=== PATIENT | female | born 1960 | race Caucasian/White ===

== ENCOUNTER 2023-05-21 14:08 | Outpatient (OUT) | payer OTHER, SELFPAY | END 2023-05-21 14:09 | disposition home or self-care (01) | LOC: PST 14:08 | PROVIDERS: PCP Family Medicine; Visit Provider Surgery | DX: Z01.818 Encounter for other preprocedural examination (principal); K62.5 Hemorrhage of anus and rectum; R19.5 Other fecal abnormalities; Z86.010 Personal history of colon polyps ==

== ENCOUNTER 2023-05-30 07:24 | Day surgery (SDC) | payer OTHER, SELFPAY ==
--- NOTE | 2023-05-30 | OP_ITS ---
OPERATION DATE: ??05/30/2023 PREOPERATIVE DIAGNOSIS:? Rectal bleeding. POSTOPERATIVE DIAGNOSIS:? Descending polyps x2, sigmoid colon polyp x1 and mass at the rectosigmoid junction. PROCEDURE:? Colonoscopy to cecum with cold snare polypectomy x3 for descending colon polyps and sigmoid polyp, and multiple biopsies of rectosigmoid mass. SURGEON:? Anselmo Smart M.D. ANESTHESIA:? Monitored anesthesia care. ESTIMATED BLOOD LOSS:? Less than 1 mL. INDICATIONS AND CONSENT:? Patient is a 63-year-old female with a three month history of intermittent rectal bleeding with bowel movements.? No other change in bowel movements.? She does have a family history of colon cancer, as well as a personal history of colon polyps. ?Last colonoscopy was three years ago and she had a tubular adenoma removed, as well as a hyperplastic sigmoid polyp.? Indications, risks, benefits, alternatives of proceeding with colonoscopy were explained extensively to the patient, including the risks of bleeding, colon perforation or anesthetic complications.? All of her questions were answered.? Informed consent was obtained. PROCEDURE:? Patient brought to the operating room, placed in the left lateral decubitus position.? Monitored anesthesia care was provided.? Rectal exam was performed which showed no masses.? There was some bloody fluid within the rectum.? The scope was then inserted into the anal canal.? Under direct visualization, it was advanced.? There was noted to be a small amount of bloody fluid within the lumen.? Th scope was advanced to the cecum where cecal markings were clearly identified.? There was noted to be a good prep.? The ileocecal valve was some patulous, but the terminal ileum did have normal mucosa.? Upon withdrawal of the scope, mucosal surfaces were carefully examined.? There were inflammatory changes.? Within the descending colon, there were noted to be two 3 mm sessile polyps that were removed with cold snare with good hemostasis.? These were adjacent to each other.? There was moderate sigmoid diverticulosis without inflammatory changes or scarring.? In the sigmoid, there was noted to be another 3 mm sessile polyp that was also removed with cold snare.? At the rectosigmoid junction, there was a polypoid, ulcerated mass taking up approximately 60% of the luminal circumference that was oozing.? Multiple biopsies were obtained with good hemostasis.? The scope was retroflexed in the anal canal.? There was no significant hemorrhoidal disease.? Scope was then withdrawn.? Patient tolerated procedure well, was sent to recovery room in good condition. follow up colonoscopy 1 year after colon resection. CC:? Justin Mcgowan M.D. JESSICA
[2023-05-30 07:40] VITALS: BP 139/84; PULSE 84; RESP 16; TEMP 35.7; O2SAT 96; BMI 37.5
[2023-05-30] MEDS: LACTATED RINGER'S SOLUTION 1,000 ML 50 ML IV (07:46)
[2023-05-30 09:21] VITALS: BP 116/66; PULSE 72; RESP 16; O2SAT 97
[2023-05-30 09:34] VITALS: BP 115/75; PULSE 77; RESP 16; O2SAT 97
== END 2023-05-30 09:52 | disposition home or self-care (01) ==
PROVIDERS: PCP Family Medicine; Visit Provider Surgery
PROC: (CPT 45380; principal; 2023-05-30 08:50)
DX: K62.5 Hemorrhage of anus and rectum (principal); R19.5 Other fecal abnormalities; Z86.010 Personal history of colon polyps; D12.4 Benign neoplasm of descending colon; K63.5 Polyp of colon; C20 Malignant neoplasm of rectum; E78.5 Hyperlipidemia, unspecified; Z90.710 Acquired absence of both cervix and uterus; E03.9 Hypothyroidism, unspecified; E66.01 Morbid (severe) obesity due to excess calories; Z68.38 Body mass index [BMI] 38.0-38.9, adult; Z80.0 Family history of malignant neoplasm of digestive organs; K57.30 Diverticulosis of large intestine without perforation or abscess without bleeding
CPT/HCPCS: 45380; 45385; 88305; J2704

== ENCOUNTER 2023-08-20 08:19 | Outpatient (OUT) | payer OTHER, SELFPAY ==
[2023-08-20 09:19] LABS: Estimated Average Glucose 114 mg/dL; Glycohemoglobin A1C 5.6 % (4.5-6.2)
[2023-08-20 09:34] LABS: Chol HDL Ratio 4.7; Cholesterol 223 mg/dL (<=200); Free T3 2.35 pg/mL (2.18-3.98); HDL Cholesterol 47 mg/dL (40-60); Thyroid Stimulating Hormone 2.603 uIU/mL (0.358-3.740); Triglycerides 193 mg/dL (<=150); VLDL CHOLESTEROL 38.6 mg/dL
[2023-08-20 12:04] LABS: Free T4 0.93 ng/dL (0.76-1.46)
== END 2023-08-20 08:20 | disposition home or self-care (01) ==
LOC: LAB 08:23
PROVIDERS: PCP Family Medicine; Visit Provider Family Medicine
DX: Z00.00 Encounter for general adult medical examination without abnormal findings (principal); R53.83 Other fatigue
CPT/HCPCS: 36415; 80061; 82306; 83036; 84439; 84443; 84481

== ENCOUNTER 2023-12-21 07:25 | Outpatient (OUT) | payer OTHER, SELFPAY ==
--- NOTE | 2023-12-21 07:28 | MM_ITS ---
Patient Name: PHAM CARRANZA MR#: [id number] : 1960 Exam Date: 12/21/2023 Ordering Doctor: DR Justin Mcgowan . RADIOLOGY REPORT PROCEDURE: MM TOMOSYNTHESIS SCREENING BI COMPARISON: [facility]M SCREEN 3D [facility] CAD, 11/29/2022. [facility]M SCREEN 3D [facility] CAD, 11/23/2021. [facility]M SCREEN [facility] W CAD, 11/17/2020. [facility] M[facility]M [facility] SCRN W CAD DIG, 07/13/1998. INDICATIONS: Screening Calculator Name NCI Breast Cancer Risk Assessment Tool 5 Year Breast Cancer Risk 1.80% Lifetime Breast Cancer Risk 7.20% Personal Breast Cancer No Personal Ovarian Cancer No Treatments Chemo and Surgery Family Cancers Aunt-paternal with breast cancer at age ~75. LOCATION: [facility] BREAST COMPOSITION: Scattered areas fibroglandular density. FINDINGS: DIAGNOSTIC CATEGORY 1--NEGATIVE. RIGHT BREAST: No significant suspicious finding. No significant change has occurred. LEFT BREAST: No significant suspicious finding. No significant change has occurred. RECOMMENDATIONS: ROUTINE MAMMOGRAM AND CLINICAL EVALUATION IN 12 MONTHS. PLEASE NOTE: A NORMAL MAMMOGRAM DOES NOT EXCLUDE THE POSSIBILITY OF BREAST CANCER. A CLINICALLY SUSPICIOUS PALPABLE LUMP SHOULD BE BIOPSIED. Dictated by: Vinod Tenorio M.D. on 12/21/2023 at 14:12 Approved by: Vinod Tenorio M.D. on 12/21/2023 at 14:17
--- OUTSIDE RECORDS SUMMARY | 2023-12-21 07:28 | XMS_ITS | CCD ---
Author Organization [facility] Care Team Providers Care 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 Therapy Asst Name Role Phone EBLEN BLOOM Attending Unavailable HOY ., DR GARCIA Admitting Unavailable HOY ., DR GARCIA Attending Unavailable HOY ., DR GARCIA Primary Care Unavailable HOY ., DR GARCIA Consulting Unavailable ZIEBER, DR DIANA Sloan Consulting Unavailable BELEN BLOOM Admitting Unavailable BELEN BLOOM Attending Unavailable HOY ., DR GARCIA Primary Care Unavailable BELEN BLOOM Consulting Unavailable HOY ., DR GARCIA Admitting Unavailable HOY ., DR GARCIA Attending Unavailable HOY ., DR GARCIA Primary Care Unavailable HOY ., DR GARCIA Consulting Unavailable Jose Buckner Primary Care Physician [phone] Unavailable Primary Care Provider UnavailJose Daniels MD Primary Care Provider [phone] Andrew Wing MD Unavailable Manjit BOLAÑOS, Darvin Unavailable Lidia Teran RN Unavailable JOSE BUCKNER Primary Care Unavailable PROVIDER, UNKNOWN Attending Unavailable PROVIDER, UNKNOWN Admitting Unavailable JOSE BUCKNER Primary Care Unavailable DAO DIXON Referring Unavailable JOSE BUCKNER Primary Care Unavailable DAO DIXON Referring Unavailable PHILIP FRANCOIS Referring Unavailable KELLY MCCLAIN Attending Unavailable DAO DIXON Attending Unavailable JOSE BUCKNER Primary Care Unavailable DAO DIXON Admitting Unavailable DAO DIXON Attending Unavailable JOSE BUCKNER Primary Care Unavailable Eliza Morales RD Unavailable Jose Buckner MD Primary Care Provider [phone] Salbador LEE Attending Unavailable Salbador LEE Attending Unavailable JOSE BUCKNER Primary Care Unavailable ABHYANKAR, ANDREW Referring Unavailable HOY, JOSE M Primary Care Unavailable ABHYANKAR, ANDREW Referring Unavailable ABHYANKAR, ANDREW Attending Unavailable HOY, JOSE M Primary Care Unavailable ELIZA MORALES Attending Unavailabl e ABHYANKAR, ANDREW Referring Unavailable HOY, JOSE M Primary Care Unavailable ABHYANKAR, ANDREW Referring Unavailable HOY, JOSE M Primary Care Unavailable ABHYANKAR, ANDREW Referring Unavailable HOY, JOSE M Primary Care Unavailable ABHYANKAR, ANDREW Referring Unavailable HOY, JOSE M Primary Care Unavailable ABHYANKAR, ANDREW Referring Unavailable HOY, JOSE M Primary Care Unavailable HOY, JOSE M Primary Care Unavailable ABHYANKAR, ANDREW Referring Unavailable HOY, JOSE M Primary Care Unavailable ABHYANKAR, ANDREW Referring Unavailable HOY, JOSE M Primary Care Unavailable ABHYANKAR, ANDREW Referring Unavailable HOY, JOSE M Primary Care Unavailable DARVIN CARSON Attending Unavailable ABHYANKAR, ANDREW Referring Unavailable HOY, JOSE M Primary Care Unavailable ABHYANKAR, ANDREW Referring Unavailable ABHYANKAR, ANDREW Attending Unavailable HOY, JOSE M Primary Care Unavailable ELIZA MORALES Attending Unavailabl e ABHYANKAR, ANDREW Referring Unavailable HOY, JOSE M Primary Care Unavailable KESHINRO, DAVIDARATU Referring Unavailable HOY, JOSE M Primary Care Unavailable KESHINRO, AJARATU Referring Unavailable HOY, JOSE M Primary Care Unavailable ABHYANKAR, ANDREW Referring Unavailable HOY, JOSE M Primary Care Unavailable ABHYANKAR, ANDREW Referring Unavailable HOY, JOSE M Primary Care Unavailable ABHYANKAR, ANDREW Attending Unavailable HOY, JOSE M Primary Care Unavailable KESHINRO, AJARATU Referring Unavailable HOY, JOSE M Primary Care Unavailable ABHYANKAR, ANDREW Referring Unavailable HOY, JOSE M Primary Care Unavailable ABHYANKAR, ANDREW Referring Unavailable HOY, JOSE M Primary Care Unavailable ABHYANKAR, ANDREW Attending Unavailable HOY, JOSE M Primary Care Unavailable FUENTESSHWM RHODESTU Attending Unavailable HOY, JOSE M Primary Care Unavailable ABHYANKAR, ANDREW Referring Unavailable ABHYANKAR, ANDREW Attending Unavailable HOY, JOSE M Primary Care Unavailable ELIZA MORALES Attending Unavailabl e ABHYANKAR, ANDREW Referring Unavailable HOY, JOSE M Primary Care Unavailable ABHYANKAR, ANDREW Referring Unavailable HOY, JOSE M Primary Care Unavailable DAO DIXON Referring Unavailable HOY, JOSE M Primary Care Unavailable HOY, JOSE M Primary Care Unavailable HOY, JOSE M Primary Care Unavailable ABHYANKAR, ANDREW Referring Unavailable JUDIT HONG Attending Unavailable HOY, JOSE M Primary Care Unavailable ABHYANKAR, ANDREW Referring Unavailable ABHYANKAR, ANDREW Attending Unavailable HOY, JOSE M Primary Care Unavailable ABHYANKAR, ANDREW Referring Unavailable HOY, JOSE M Primary Care Unavailable ABHYANKAR, ANDREW Attending Unavailable ABHYANKAR, ANDREW Referring Unavailable HOY, JOSE M Primary Care Unavailable HOY, JOSE M Primary Care Unavailable ABHYANKAR, ANDREW Referring Unavailable HOY, JOSE M Primary Care Unavailable ABHYANKAR, ANDREW Referring Unavailable HOY, JOSE M Primary Care Unavailable ABHYANKAR, ANDREW Referring Unavailable HOY, JOSE M Primary Care Unavailable ABHYANKAR, ANDREW Referring Unavailable HOY, JOSE M Primary Care Unavailable ABHYANKAR, ANDREW Attending Unavailable ABHYANKAR, ANDREW Referring Unavailable HOY, JOSE M Primary Care Unavailable ELIZA MORALES Attending Unavailabl e ABHYANKAR, ANDREW Referring Unavailable HOY, JOSE M Primary Care Unavailable ABHYANKAR, ANDREW Referring Unavailable HOY, JOSE M Primary Care Unavailable ABHYANKAR, ADNREW Referring Unavailable HOY, JOSE M Primary Care Unavailable ABHYANKAR, ANDREW Referring Unavailable HOY, JOSE M Primary Care Unavailable DARVIN CARSON Attending Unavailable ABHYANKAR, ANDREW Referring Unavailable HOY, JOSE M Primary Care Unavailable EULALIA CASTANEDA Referring Unavailable HOY, JOSE M Primary Care Unavailable SALBADOR LEE Referring Unavailable PHILIP FRANCOIS Attending Unavailable Allergies Allergy Classification Reported Allergen(s) Allergy Type Date of Onset Reaction(s) Facility (3 sources) Pravastatin; Translations: [PRAVASTATIN] Drug Allergy 2 Muscle pain (finding) [facility] Repository (20 sources) rosuvastatin; Translations: [ROSUVASTATIN] Drug Allergy 3 Myalgia [facility] (20 sources) HMG-CoA reductase inhibitor; Translations: [[id number]-BU A REDUCTASE INHIBITORS] Drug Allergy 2 Other: See Comments, Myalgia, Unknown [facility] (1 source) No Known Medication Allergies; Translations: [No Known Medication Allergies] Propensity to adverse reactions (disorder) [facility] Repository Medications Current Medications Medication Drug Class(es) Dates Sig (Normalized) Sig (Original) amoxicillin 875 mg / clavulanate 125 mg oral tablet (4 sources) Penicillin-class Antibacterial Start: 10-18-2023 End: 10-25-2023 take 1 tablet by mouth twice daily amoxicillin-clav ulanate potassium (AUGMENTIN) 875-125 mg per tablet Take 1 tablet by mouth two times a day for 7 days. 14 tablet 0 10/18/2023 10/25/2023 Active Comment on above: Take 1 tablet by titi th two times a day for 7 days. Fish Oils (1 source) Start: 02-18-2020 take 4 capsules by mouth once daily Fish Oil 1000 mg oral capsule 4,000 mg = 4 cap(s), Oral, Daily, Refills(s) 0 Start Date: 02/18/20 Status: Ordered Completed/Discontinued Medications Medication Drug Class(es) Dates Sig (Normalized) Sig (Original) Acetaminophen / diphenhydrAMINE (20 sources) Histamine-1 Receptor Antagonist acetaminophen/diphe nhydramine (TYLENOL PM ORAL) Take 1 Dose by mouth as needed. 0 Active acetaminophen/di phenhydramine (TYLENOL PM ORAL) Take by mouth. 0 Active Comment on above: Take by mouth. Take 1 Dose by mouth as needed. ascorbic acid 500 mg oral tablet (6 sources) Vitamin C End: 08-21-2023 take 1 tablet by mouth once daily ascorbic acid, vitamin C, (VITAMIN C) 500 mg tablet Take 500 mg by mouth once daily. 0 08/21/2023 Discontinued Comment on above: Take 500 mg by mouth once daily. Ascorbic Xcxb-Bgqvvnlml-Obb (EMERGEN-C) 1,000 mg pwep (20 sources) take 1 dose by mouth once daily Ascorbic Stdc-Sfpfpzsxw-Zxy (EMERGEN-C) 1,000 mg pwep Take 1 Packet by mouth once daily. 0 Active Comment on above: Take 1 Packet by titi th once daily. collagen, hydrolysate, bovine, (COLLAGEN, HYDR, BOVINE,, BULK,) 100 % powd (20 sources) take 1 dose by mouth once daily collagen, hydrolysate, bovine, (COLLAGEN, HYDR, BOVINE,, BULK,) 100 % powd Take 1 Dose by mouth once daily. 0 Active Comment on above: Take 1 Dose by mouth once daily. enteric contrast (will be provided with radiology test) (20 sources) Start: 10-24-2023 enteric contrast (will be provided with radiology test) Indications: Malignant neoplasm of descending colon (HCC) For CT CHESTABD/PEL W IVCON Routine order Administer, As Directed One Time Only, via Oral, Rectal, both Oral and Rectal, Enteric Tube, Stoma or Indwelling Catheter, Enteric Contrast as designated per enteric contrast guidelines 1 Each 0 10/24/2023 Active Start: 06-25-2023 End: 06-26-2023 enteric contrast (will be pr ovided with radiology test) Indications: Malignant neoplasm of sigmoid colon (HCC) For CT PELVIS W IVCON order Administer, As Directed One Time Only, via Oral, Rectal, both Oral and Rectal, Enteric Tube, Stoma or Indwelling Catheter, Enteric Contrast as designated per enteric contrast guidelines 1 Each 0 06/25/2023 06/26/2023 Active Start: 06-05-[address] (will be provided with radiology test) MRI RECTUM WO/W. Administer, As Directed One Time Only, via Oral, Rectal, both Oral and Rectal, Enteric Tube, Stoma or Indwelling Catheter, Enteric Contrast as designated per enteric contrast guidelines 1 Each 0 06/05/2023 Active Comment on above: MRI RECTUM WO/W. Adm inister, As Directed One Time Only, via Oral, Rectal, both Oral and Rectal, Enteric Tube, Stoma or Indwelling Catheter, Enteric Contrast as designated per enteric contrast guidelines For CT PELVIS W IVCO N order Administer, As Directed One Time Only, via Oral, Rectal, both Oral and Rectal, Enteric Tube, Stoma or Indwelling Catheter, Enteric Contrast as designated per enteric contrast guidelines For CT CHESTABD/PEL W IVCON Routine order Administer, As Directed One Time Only, via Oral, Rectal, both Oral and Rectal, Enteric Tube, Stoma or Indwelling Catheter, Enteric Contrast as designated per enteric contrast guidelines ferrous sulfate (6 sources) End: 08-21-2023 take 20 mg by mouth once daily FERROUS SULFATE ORAL Take 20 mg by mouth once daily. 0 08/21/2023 Discontinued take 20 mg by mouth once daily F ERROUS SULFATE ORAL Take 20 mg by mouth once daily. 0 Active Comment on above: Take 20 mg by mouth once daily. folic acid 1 mg oral tablet (20 sources) take 1 tablet by mouth once daily folic acid 1 mg tablet Take 1 mg by mouth once daily. 0 Active Comment on above: Take 1 mg by mouth o nce daily. hydrocortisone acetate 10 mg/ml / pramoxine hydrochloride 10 mg/ml rectal cream (20 sources) Corticosteroid Start: 023 apply 1 g rectal route every twelve hours as needed Pramoxine-Hydrocortis one (ANALPRAM-HC) 1-1 % rectal cream 1 g by RECTAL route two times a day as needed (rectal discomfort). 0 05/04/2023 Active Comment on above: Refill(s) 0, as directed 1 g by RECTAL route two times a day as needed (rectal discomfort). iron glycinate,polysacch cmplx (IRON BIS GLYCIN-FE P-SAC CMPLX ORAL) (20 sources) take 20 mg by mouth once daily iron glycinate,polysacch cmplx (IRON BIS GLYCIN-FE P-SAC CMPLX ORAL) Take 20 mg by mouth once daily. 0 Active Comment on above: Take 20 mg by mouth once daily. iv contrast (will be provided with radiology test) (20 sources) Start: 024 iv contrast (will be provided with radiology test) Indications: Malignant neoplasm of descending colon (HCC) CT Chest ABD/PEL-Inject, intravenously, once for 1 dose.No IV access, insert saline lock prior to the beginning of sedation, infusion, injection of imaging exam. Discontinue saline lock post exam. If Pt. has a central line or IVAD, may access for administration according to line specific nursing protocol. Once exam is complete flush line and de-access according to line specific nursing protocol in the CT contrast administration guidelines link. 1 Each 0 10/24/2023 Active Start: 06-25-2023 End: 06-26-2023 iv contrast (will be provide d with radiology test) Indications: Malignant neoplasm of sigmoid colon (HCC) CT PELVIS W -Inject, intravenously, once for 1 dose.No IV access, insert saline lock prior to the beginning of sedation, infusion, injection of imaging exam. Discontinue saline lock post exam. If Pt. has a central line or IVAD, may access for administration according to line specific nursing protocol. Once exam is complete flush line and de-access according to line specific nursing protocol in the CT contrast administration guidelines link. 1 Each 0 06/25/2023 06/26/2023 Active Start: 06-05-2023 iv contrast (w ill be provided with radiology test) MRI Rectum Inject, intravenously, once for 1 dose. No IV access, insert saline lock prior to the beginning of sedation, infusion, injection of imaging exam. Discontinue saline lock post exam. If Pt has a central line or IVAD, may access for administration according to line specific nursing protocol. Once exam is complete flush line and de-access according to line specific nursing protocol in the MR contrast administration guidelines link. 1 Each 0 06/05/2023 Active Comment on above: MRI Rectum Inject, i ntravenously, once for 1 dose. No IV access, insert saline lock prior to the beginning of sedation, infusion, injection of imaging exam. Discontinue saline lock post exam. If Pt has a central line or IVAD, may access for administration according to line specific nursing protocol. Once exam is complete flush line and de-access according to line specific nursing protocol in the MR contrast administration guidelines link. CT PELVIS W -Inject, intravenously, once for 1 dose.No IV access, insert saline lock prior to the beginning of sedation, infusion, injection of imaging exam. Discontinue saline lock post exam. If Pt. has a central line or IVAD, may access for administration according to line specific nursing protocol. Once exam is complete flush line and de-access according to line specific nursing protocol in the CT contrast administration guidelines link. CT Chest ABD/PEL-Inj ect, intravenously, once for 1 dose.No IV access, insert saline lock prior to the beginning of sedation, infusion, injection of imaging exam. Discontinue saline lock post exam. If Pt. has a central line or IVAD, may access for administration according to line specific nursing protocol. Once exam is complete flush line and de-access according to line specific nursing protocol in the CT contrast administration guidelines link. levothyroxine sodium 0.05 mg oral tablet (20 sources) l-Thyroxine Start: 05-04-20 take 1 tablet by mouth once daily levothyroxine (SYNTHROID) 50 mcg tablet Take 50 mcg by mouth once daily. 0 05/04/2023 Active Start: 05-04-2023 take 1 tablet by titi once daily levothyroxine 50 mcg (0.05 mg) Tab 50 mcg = 1 tab(s), Oral, Daily, Refills(s) 0 Start Date: 05/04/23 Status: Ordered Comment on above: Take 50 mcg by mouth once daily. metroNIDAZOLE 500 mg oral tablet (2 sources) Nitroimidazole Antimicrobial Start: 2023 take 1 tablet by mouth in the evening metroNIDAZOLE (FLAGYL) 500 mg tablet Indications: Malignant neoplasm of sigmoid colon (HCC) Take 1 tablet by mouth as directed. Take 1 tablet at 6 pm, another at 7 pm and again at 11 pm, the evening prior to surgery 3 tablet 0 11/28/2023 Active Comment on above: Take 1 tablet by titi as directed. Take 1 tablet at 6 pm, another at 7 pm and again at 11 pm, the evening prior to surgery neomycin sulfate 500 mg oral tablet (2 sources) Aminoglycoside Antibacterial Start: 2023 take 2 tablets by mouth in the evening neomycin 500 mg tablet Indications: Malignant neoplasm of sigmoid colon (HCC) Take 2 tablets by mouth as directed. Take 2 tablets at 6 pm, again at 7 pm and at 11 pm the evening prior to surgery 6 tablet 0 11/28/2023 Active Comment on above: Take 2 tablets by mo [facility] as directed. Take 2 tablets at 6 pm, again at 7 pm and at 11 pm the evening prior to surgery omega 2-viv-vmo-fish oil 120-180-500 mg cap (20 sources) Start: 2019 take 1 capsule by mouth once daily omega 9-lvu-shf-fish oil 120-180-500 mg cap Take 500 mg by mouth once daily. 0 02/18/2020 Active Comment on above: Take 500 mg by mouth once daily. Exvro-3-AJJ-EPA-Fish Oil (FISH OIL) 1,000 mg (120 mg-180 mg) cap (18 sources) Start: 2019 Gzrvh-2-VFJ-EPA-Fish Oil (FISH OIL) 1,000 mg (120 mg-180 mg) cap Take 4,000 mg by mouth. 0 02/18/2020 Active Comment on above: Take 4,000 mg by titi th. ondansetron 8 mg oral tablet (20 sources) Serotonin-3 Receptor Antagonist Start: 2022 take 1 tablet by mouth every eight hours as needed ondansetron (ZOFRAN) 8 mg tablet Take 1 tablet by mouth every 8 hours as needed for nausea/vomiting. 90 tablet 1 08/14/2023 Active Comment on above: Take 1 tablet by titi th every 8 hours as needed for nausea/vomiting. prochlorperazine 10 mg oral tablet (20 sources) Phenothiazine Start: 2022 take 1 tablet by mouth every six hours as needed prochlorperazine (COMPAZINE) 10 mg tablet Take 1 tablet by mouth every 6 hours as needed. 100 tablet 1 08/14/2023 Active Comment on above: Take 1 tablet by titi th every 6 hours as needed. Problems Active Problems Problem Classification Problem Date Documented Da te Episodic/Chronic Abdominal hernia (1 source) Hiatal hernia 02-18-2020 Episodic Cancer of colon (20 sources) Malignant tumor of sigmoid colon; Translations: [Malignant neoplasm of sigmoid colon] Onset: 07-03-2023 06-25-2023 Chronic Cancer of rectum and anus (20 sources) Malignant tumor of rectum; Translations: [Malignant neoplasm of rectum] Onset: 06-08-2023 06-08-2023 Chronic Deficiency and other anemia (2 sources) Iron deficiency anemia due to blood loss; Translations: [Iron deficiency anemia secondary to blood loss (chronic)] 06-29-2023 Chronic Deficiency and other anemia (1 source) Iron deficiency anemia secondary to blood loss (chronic); Translations: [Iron deficiency anemia due to chronic blood loss] Onset: 07-13-2023 Chronic Deficiency and other anemia (18 sources) Iron deficiency anemia; Translations: [Iron deficiency anemia, unspecified] Onset: 09-12-2023 09-12-2023 Episodic Disorders of lipid metabolism (20 sources) Hyperlipidemia; Translations: [Hyperlipidemia, unspecified] Onset: 07-05-2022 Chronic Diverticulosis and diverticulitis (1 source) Diverticulitis of colon 02-18-2020 Chronic Essential hypertension (20 sources) Hypertensive disorder; Translations: [Essential (primary) hypertension] Onset: 07-05-2022 Chronic Gastrointestinal hemorrhage (2 sources) Hemorrhage of rectum and anus; Translations: [Hemorrhage of anus and rectum] Onset: 05-08-2023 Episodic Hemorrhoids (1 source) Hemorrhoids 02-18-2020 Episodic Hypertension with complications and secondary hypertension (4 sources) Hypertensive heart disease without heart failure; Translations: [HTN HEART DISEASE W/O HEART FAIL] Onset: 07-07-2022 Chronic Nausea and vomiting (20 sources) Postoperative nausea and vomiting; Translations: [Nausea with vomiting, unspecified] Onset: 08-13-2023 08-13-2023 Episodic Other and unspecified benign neoplasm (2 sources) History of polyp of colon; Translations: [Personal history of colonic polyps] Onset: 05-08-2023 Episodic Other and unspecified benign neoplasm (1 source) Hyperplastic polyp of large intestine 02-18-2020 Episodic Other gastrointestinal disorders (1 source) Irritable bowel syndrome 02-18-2020 Chronic Other gastrointestinal disorders (2 sources) Altered bowel function; Translations: [Change in bowel habit] Onset: 05-08-2023 Episodic Other gastrointestinal disorders (1 source) H/O: gallstones 02-18-2020 Episodic Other liver diseases (1 source) Fatty (change of) liver, not elsewhere classified; Translations: [FATTY CHANGE LIVER NEC] Onset: 08-27-2022 Chronic Other lower respiratory disease (3 sources) Nodule of lung; Translations: [Solitary pulmonary nodule] 08-13-2023 Episodic Other lower respiratory disease (1 source) Solitary pulmonary nodule; Translations: [Lung nodule] Onset: 08-13-2023 Episodic Other nutritional; endocrine; and metabolic disorders (1 source) Body mass index 30+ - obesity 05-08-2023 Chronic Other nutritional; endocrine; and metabolic disorders (1 source) Morbid obesity 05-08-2023 Chronic Other nutritional; endocrine; and metabolic disorders (20 sources) Obesity; Translations: [Obesity, unspecified] Onset: 08-10-2023 08-10-2023 Chronic Other nutritional; endocrine; and metabolic disorders (1 source) Obesity, unspecified; Translations: [Class 2 obesity with body mass index (BMI) of 38.0 to 38.9 in adult, unspecified obesity type, unspecified whether serious comorbidity present] Onset: 08-10-2023 Chronic Other nutritional; endocrine; and metabolic disorders (1 source) Body mass index (BMI) 38.0-38.9, adult; Translations: [Class 2 obesity with body mass index (BMI) of 38.0 to 38.9 in adult, unspecified obesity type, unspecified whether serious comorbidity present] Onset: 08-10-2023 Chronic Other screening for suspected conditions (not mental disorders or infectious disease) (5 sources) Encounter for screening mammogram for malignant neoplasm of breast; Translations: [Stool DNA-based colorectal cancer screening positive] Onset: 11-29-2022 Episodic Residual codes; unclassified (1 source) Family history of malignant neoplasm of breast; Translations: [FAMILY HX MALIG NEOPLASM OF BREAST] Onset: 12-02-2022 Episodic Residual codes; unclassified (1 source) Family history of cancer of colon; Translations: [Family history of malignant neoplasm of digestive organs] 08-21-2023 Episodic Residual codes; unclassified (1 source) Family history of malignant neoplasm of brain; Translations: [Family history of malignant neoplasm of other organs or systems] 08-21-2023 Episodic Thyroid disorders (20 sources) Hypothyroidism, unspecified; Translations: [Hypothyroidism] Onset: 08-22-2022 Chronic Past or Other Problems Problem Classification Problem Date Documented Da te Episodic/Chronic Anal and rectal conditions (1 source) Other specified diseases of anus and rectum; Translations: [Rectal mass] Onset: 06-05-2023 Episodic Other liver diseases (1 source) Abnormal levels of other serum enzymes; Translations: [ABNORMAL LEVELS OTHER SERUM ENZYMES] Onset: 08-27-2022 Episodic Residual codes; unclassified (1 source) Family history of malignant neoplasm of digestive organs; Translations: [Family history of colon cancer] Onset: 08-21-2023 Episodic Residual codes; unclassified (1 source) Family history of malignant neoplasm of other organs or systems; Translations: [Family history of brain cancer] Onset: 08-21-2023 Episodic Results Test Name Value Interpretation Reference Range Facility CBC panel Auto (Bld)on 12-18 Erythrocyte distribution width (RBC) [Ratio] 15.9 % High 11.5-15.0 [facility] Comment on above: Order Comment: Speci men Type: BLOOD SPECIMENOrdering Facility: [facility] Address: [address] [place], [place] [id number] Performed By: #### [id number] 8410-2 ####[facility] LABCLIA [id number] [place] [address] [place] Hematocrit (Bld) [Volume fraction] 40.6 % Normal 36.0-46.0 [facility] Comment on above: Order Comment: Speci men Type: BLOOD SPECIMENOrdering Facility: [facility] Address: [address] [place] [address] Performed By: #### 5 8410-2 ####[facility]CLIA [id number] [place] [address] [place] Hemoglobin (Bld) [Mass/Vol] 13.0 g/dL Normal 11.5-15.5 [facility] Comment on above: Order Comment: Speci men Type: BLOOD SPECIMENOrdering Facility: [facility] Address: [address] [place] [address] Performed By: #### 5 8410-2 ####[facility]CLIA [id number] [place] [address] [place] MCH (RBC) [Entitic mass] 30.4 pg Normal 26.0-34.0 [facility] Comment on above: Order Comment: Speci men Type: BLOOD SPECIMENOrdering Facility: [facility] Address: [address] [place] [address] Performed By: #### 5 8410-2 ####[facility] LABIA [id number] [place] [address] [place] MCHC (RBC) [Mass/Vol] 32.0 g/dL Normal 30.5-36.0 [facility] Comment on above: Order Comment: Speci men Type: BLOOD SPECIMENOrdering Facility: [facility] Address: [address] [place] [address] Performed By: #### 5 8410-2 ####[facility] LABCLIA [id number] [place] [address] [place] MCV (RBC) [Entitic vol] 95.1 fL Normal 80.0-100.0 [facility] Comment on above: Order Comment: Speci men Type: BLOOD SPECIMENOrdering Facility: [facility] Address: [address] [place] [address] Performed By: #### 5 8410-2 ####[facility] LABIA [id number] [place] [address] [place] Nucleated RBC (Bld) [#/Vol] 10*3/uL Normal <0.01 [facility] Comment on above: Order Comment: Speci men Type: BLOOD SPECIMENOrdering Facility: [facility] Address: [address] [place] [address] Performed By: #### 5 8410-2 ####[facility] LABIA [id number] [place] [address] [place] Platelet mean volume (Bld) [Entitic vol] 11.3 fL Normal 9.0-12.7 [facility] Comment on above: Order Comment: Speci men Type: BLOOD SPECIMENOrdering Facility: [facility] Address: [address] [place] [address] Performed By: #### 5 8410-2 ####[facility] LABIA [id number] [place] [address] [place] Platelets (Bld) [#/Vol] 110 10*3/uL Low 150-400 [facility] Comment on above: Order Comment: Speci men Type: BLOOD SPECIMENOrdering Facility: [facility] Address: [address] [place] [address] Performed By: #### 5 8410-2 ####[facility] LABIA [id number] [place] [address] [place] RBC (Bld) [#/Vol] 4.27 10*6/uL Normal 3.90-5.20 [facility] Comment on above: Order Comment: Speci men Type: BLOOD SPECIMENOrdering Facility: [facility] Address: [address] [place] [address] Performed By: #### 5 8410-2 ####[facility] LABCLIA [id number] [place] [address] [place] WBC (Bld) [#/Vol] 3.91 10*3/uL Normal 3.70-11.00 [facility] Comment on above: Order Comment: Speci men Type: BLOOD SPECIMENOrdering Facility: [facility] Address: [address] [place] [address] Performed By: #### 5 8410-2 ####[facility] LABCLIA [id number] [place] [address] [place] [facility] Comprehensive metabolic 2000 panelon 12-19-2023 Albumin [Mass/Vol] 4.1 g/dL Normal 3.9-4.9 [facility] Comment on above: Order Comment: Speci men Type: BLOOD SPECIMENOrdering Facility: [facility] Address: [address] [place] [address] Performed By: #### 2 4323-8 ####[facility] LABCLIA [id number] [place] [address] [place] ALP [Catalytic activity/Vol] 76 U/L Normal 34-123 [facility] Comment on above: Order Comment: Speci men Type: BLOOD SPECIMENOrdering Facility: [facility] Address: [address] [place] [address] Performed By: #### 2 4323-8 ####[facility] LABCLIA [id number] [place] [address] [place] ALT [Catalytic activity/Vol] 39 U/L High 7-38 [facility] Comment on above: Order Comment: Speci men Type: BLOOD SPECIMENOrdering Facility: [facility] Address: [address] [place] [address] Performed By: #### 2 4323-8 ####[facility] LABCLIA [id number] [place] [address] [place] Anion gap [Moles/Vol] 14 mmol/L Normal 9-18 [facility] Comment on above: Order Comment: Speci men Type: BLOOD SPECIMENOrdering Facility: [facility] Address: [address] [place] [address] Performed By: #### 2 4323-8 ####[facility] LABCLIA [id number] [place] [address] [place] AST [Catalytic activity/Vol] 42 U/L High 13-35 [facility] Comment on above: Order Comment: Speci men Type: BLOOD SPECIMENOrdering Facility: [facility] Address: [address] [place] [address] Performed By: #### 2 4323-8 ####[facility] LABCLIA [id number] [place] [address] [place] Bilirubin [Mass/Vol] 0.3 mg/dL Normal 0.2-1.3 [facility] Comment on above: Order Comment: Speci men Type: BLOOD SPECIMENOrdering Facility: [facility] Address: [address] [place] [address] Performed By: #### 2 4323-8 ####[facility] LABCLIA [id number] [place] [address] [place] Calcium [Mass/Vol] 9.4 mg/dL Normal 8.5-10.2 [facility] Comment on above: Order Comment: Speci men Type: BLOOD SPECIMENOrdering Facility: [facility] Address: [address] [place] [address] Performed By: #### 2 4323-8 ####[facility] LABCLIA [id number] [place] [address] [place] Chloride [Moles/Vol] 109 mmol/L High 97-105 [facility] Comment on above: Order Comment: Speci men Type: BLOOD SPECIMENOrdering Facility: [facility] Address: [address] [place] [address] Performed By: #### 2 4323-8 ####[facility] LABCLIA [id number] [place] [address] [place] CO2 [Moles/Vol] 23 mmol/L Normal 22-30 [facility] Comment on above: Order Comment: Speci men Type: BLOOD SPECIMENOrdering Facility: [facility] Address: [address] [place] [address] Performed By: #### 2 4323-8 ####[facility] LABCLIA [id number] [place] [address] [place] Creatinine [Mass/Vol] 0.77 mg/dL Normal 0.58-0.96 [facility] Comment on above: Order Comment: Speci men Type: BLOOD SPECIMENOrdering Facility: [facility] Address: [address] [place] [address] Performed By: #### 2 4323-8 ####[facility] LABCLIA [id number] [place] [address] [place] Creatinine and Glomerular filtration rate.predicted panel (S/P/Bld) 86 mL/min/1.73m??? Normal >=60 [facility] Comment on above: Order Comment: Speci men Type: BLOOD SPECIMENOrdering Facility: [facility] Address: [address] [place] [address] Result Comment: Kelsey mated Glomerular Filtration Rate (eGFR) is calculated using the 2020 CKD-EPI creatinine equation. This equation utilizes serum creatinine, sex, and age as parameters. The creatinine assay has traceable calibration to isotope dilution-mass spectrometry. Refer to KDIGO guidelines for clinical interpretation. In patients with unstable renal function, e.g. those with acute kidney injury, the eGFR may not accurately reflect actual GFR. Performed By: #### 2 4323-8 ####[facility] LABCLIA [id number] [place] [address] [place] Glucose [Mass/Vol] 105 mg/dL High 74-99 [facility] Comment on above: Order Comment: Speci men Type: BLOOD SPECIMENOrdering Facility: [facility] Address: [address] [place] [address] Result Comment: The [place] Diabetes Association (ADA) provides guidance for cutoff values for fasting glucose and random glucose. The ADA defines fasting as no caloric intake for at least 8 hours. Fasting plasma glucose results between 100 to 125 mg/dL indicate increased risk for diabetes (prediabetes).Fasting plasma glucose results greater than or equal to 126 mg/dL meet the criteria for diagnosis of diabetes. In the absence of unequivocal hyperglycemia, results should be confirmed by repeat testing. In a patient with classic symptoms of hyperglycemia or hyperglycemic crisis, random plasma glucose results greater than or equal to 200 mg/dL meet the criteria for diagnosis of diabetes.Reference: Standards of Medical Care in Diabetes 2016, [place] Diabetes Association. Diabetes Care. 2016.39(Suppl 1). Performed By: #### 2 4323-8 ####[facility] LABCLIA [id number] [place] [address] [place] Potassium [Moles/Vol] 4.4 mmol/L Normal 3.7-5.1 [facility] Comment on above: Order Comment: Speci men Type: BLOOD SPECIMENOrdering Facility: [facility] Address: [address] [place] [address] Performed By: #### 2 4323-8 ####[facility] LABCLIA [id number] [place] [address] [place] Protein [Mass/Vol] 6.7 g/dL Normal 6.3-8.0 [facility] Comment on above: Order Comment: Speci men Type: BLOOD SPECIMENOrdering Facility: [facility] Address: [address] [place] [address] Performed By: #### 2 4323-8 ####[facility] LABCLIA [id number] [place] [address] [place] Sodium [Moles/Vol] 146 mmol/L High 136-144 [facility] Comment on above: Order Comment: Speci men Type: BLOOD SPECIMENOrdering Facility: [facility] Address: [address] [place] [address] Performed By: #### 2 4323-8 ####[facility] LABCLIA [id number] [place] [address] [place] Urea nitrogen [Mass/Vol] 14 mg/dL Normal 7-21 [facility] Comment on above: Order Comment: Speci men Type: BLOOD SPECIMENOrdering Facility: [facility] Address: [address] [place] [address] Performed By: #### 2 4323-8 ####[facility] LABCLIA [id number] [place] [address] [place] HISTORY PHYSICALon HISTORY PHYSICAL Normal [facility] CBC W Auto Differential pane l (Bld)on 12-05-2023 Basophils (Bld) [#/Vol] 10*3/uL Normal <0.11 [facility] Comment on above: Order Comment: Speci men Type: BLOOD SPECIMENOrdering Facility: [facility] Address: [address] [place] [address] Performed By: #### 5 7021-8 ####[facility] LABCLIA [id number] [place] [address] Basophils/100 WBC (Bld) 0.4 % Normal [facility] Comment on above: Order Comment: Speci men Type: BLOOD SPECIMENOrdering Facility: [facility] Address: [address] [place] [address] Performed By: #### 5 7021-8 ####[facility] LABCLIA [id number] [place] [address] Differential cell count method Nom (Bld) Auto Normal [facility] Comment on above: Order Comment: Speci men Type: BLOOD SPECIMENOrdering Facility: [facility] Address: [address] [place] [address] Performed By: #### 5 7021-8 ####[facility] LABCLIA [id number] [place] [address] Eosinophils (Bld) [#/Vol] 0.15 10*3/uL Normal <0.46 [facility] Comment on above: Order Comment: Speci men Type: BLOOD SPECIMENOrdering Facility: [facility] Address: [address] [place] [address] Performed By: #### 5 7021-8 ####[facility] LABCLIA [id number] [place] [address] Eosinophils/100 WBC (Bld) 2.7 % Normal [facility] Comment on above: Order Comment: Speci men Type: BLOOD SPECIMENOrdering Facility: [facility] Address: [address] [place] [address] Performed By: #### 5 7021-8 ####[facility] LABIA [id number] [place] [address] Erythrocyte distribution width (RBC) [Ratio] 17.0 % High 11.5-15.0 [facility] Comment on above: Order Comment: Speci men Type: BLOOD SPECIMENOrdering Facility: [facility] Address: [address] [place] [address] Performed By: #### 5 7021-8 ####[facility] LABCLIA [id number] [place] [address] Hematocrit (Bld) [Volume fraction] 37.3 % Normal 36.0-46.0 [facility] Comment on above: Order Comment: Speci men Type: BLOOD SPECIMENOrdering Facility: [facility] Address: [address] [place] [address] Performed By: #### 5 7021-8 ####[facility] LABIA [id number] [place] [address] Hemoglobin (Bld) [Mass/Vol] 12.2 g/dL Normal 11.5-15.5 [facility] Comment on above: Order Comment: Speci men Type: BLOOD SPECIMENOrdering Facility: [facility] Address: [address] [place] [address] Performed By: #### 5 7021-8 ####[facility] LABCLIA [id number] [place] [address] Immature granulocytes (Bld) [#/Vol] 0.03 10*3/uL Normal <0.10 [facility] Comment on above: Order Comment: Speci men Type: BLOOD SPECIMENOrdering Facility: [facility] Address: [address] [place] [address] Performed By: #### 5 7021-8 ####[facility] LABCLIA [id number] [place] [address] Immature granulocytes/100 WBC (Bld) 0.5 % Normal [facility] Comment on above: Order Comment: Speci men Type: BLOOD SPECIMENOrdering Facility: [facility] Address: [address] [place] [address] Performed By: #### 5 7021-8 ####[facility] LABCLIA [id number] [place] [address] Lymphocytes (Bld) [#/Vol] 1.23 10*3/uL Normal 1.00-4.00 [facility] Comment on above: Order Comment: Speci men Type: BLOOD SPECIMENOrdering Facility: [facility] Address: [address] [place] [address] Performed By: #### 5 7021-8 ####[facility] LABCLIA [id number] [place] [address] Lymphocytes/100 WBC (Bld) 22.3 % Normal [facility] Comment on above: Order Comment: Speci men Type: BLOOD SPECIMENOrdering Facility: [facility] Address: [address] [place] [address] Performed By: #### 5 7021-8 ####[facility] LABCLIA [id number] [place] [address] MCH (RBC) [Entitic mass] 29.4 pg Normal 26.0-34.0 [facility] Comment on above: Order Comment: Speci men Type: BLOOD SPECIMENOrdering Facility: [facility] Address: [address] [place] [address] Performed By: #### 5 7021-8 ####[facility] LABCLIA [id number] [place] [address] MCHC (RBC) [Mass/Vol] 32.7 g/dL Normal 30.5-36.0 [facility] Comment on above: Order Comment: Speci men Type: BLOOD SPECIMENOrdering Facility: [facility] Address: [address] [place] [address] Performed By: #### 5 7021-8 ####[facility] LABCLIA [id number] [place] [address] MCV (RBC) [Entitic vol] 89.9 fL Normal 80.0-100.0 [facility] Comment on above: Order Comment: Speci men Type: BLOOD SPECIMENOrdering Facility: [facility] Address: [address] [place] [address] Performed By: #### 5 7021-8 ####[facility] LABCLIA [id number] [place] [address] Monocytes (Bld) [#/Vol] 0.33 10*3/uL Normal <0.87 [facility] Comment on above: Order Comment: Speci men Type: BLOOD SPECIMENOrdering Facility: [facility] Address: [address] [place] [address] Performed By: #### 5 7021-8 ####[facility] LABCLIA [id number] [place] [address] Monocytes/100 WBC (Bld) 6.0 % Normal [facility] Comment on above: Order Comment: Speci men Type: BLOOD SPECIMENOrdering Facility: [facility] Address: [address] [place] [address] Performed By: #### 5 7021-8 ####[facility] LABCLIA [id number] [place] [address] Neutrophils (Bld) [#/Vol] 3.75 10*3/uL Normal 1.45-7.50 [facility] Comment on above: Order Comment: Speci men Type: BLOOD SPECIMENOrdering Facility: [facility] Address: [address] [place] [address] Performed By: #### 5 7021-8 ####[facility] LABCLIA [id number] [place] [address] Neutrophils/100 WBC (Bld) 68.1 % Normal [facility] Comment on above: Order Comment: Speci men Type: BLOOD SPECIMENOrdering Facility: [facility] Address: [address] [place] [address] Performed By: #### 5 7021-8 ####[facility] LABCLIA [id number] [place] [address] Nucleated RBC (Bld) [#/Vol] 10*3/uL Normal <0.01 [facility] Comment on above: Order Comment: Speci men Type: BLOOD SPECIMENOrdering Facility: [facility] Address: [address] [place] [address] Performed By: #### 5 7021-8 ####[facility] LABCLIA [id number] [place] [address] Nucleated RBC/100 WBC (Bld) [Ratio] 0.0 /100 WBC Normal [facility] Comment on above: Order Comment: Speci men Type: BLOOD SPECIMENOrdering Facility: [facility] Address: [address] [place] [address] Performed By: #### 5 7021-8 ####[facility] LABCLIA [id number] [place] [address] Platelet mean volume (Bld) [Entitic vol] 11.8 fL Normal 9.0-12.7 [facility] Comment on above: Order Comment: Speci men Type: BLOOD SPECIMENOrdering Facility: [facility] Address: [address] [place] [address] Performed By: #### 5 7021-8 ####[facility] LABIA [id number] [place] [address] Platelets (Bld) [#/Vol] 64 10*3/uL Low 150-400 [facility] Comment on above: Order Comment: Speci men Type: BLOOD SPECIMENOrdering Facility: [facility] Address: [address] [place] [address] Result Comment: Resu lts checked and verified.No clot detected. Performed By: #### 5 7021-8 ####[facility] LABIA [id number] [place] [address] RBC (Bld) [#/Vol] 4.15 10*6/uL Normal 3.90-5.20 [facility] Comment on above: Order Comment: Speci men Type: BLOOD SPECIMENOrdering Facility: [facility] Address: [address] [place] [address] Performed By: #### 5 7021-8 ####[facility] LABIA [id number] [place] [address] WBC (Bld) [#/Vol] 5.51 10*3/uL Normal 3.70-11.00 [facility] Comment on above: Order Comment: Speci men Type: BLOOD SPECIMENOrdering Facility: [facility] Address: [address] [place] [address] Performed By: #### 5 7021-8 ####[facility] LABIA [id number] [place] [address] CNPNon 11-28-2023 CNPN Normal [facility] CNPNon 11-22-2023 CNPN Normal [facility] Consultation Noteon 11-22-19 Consultation Note [id number]#1.00TIF F Normal [facility] CBC W Auto Differential pane l (Bld)on 11-21-2023 Basophils (Bld) [#/Vol] 10*3/uL Normal <0.11 [facility] Comment on above: Order Comment: Speci men Type: BLOOD SPECIMENOrdering Facility: [facility] Address: [address] [place] [address] Performed By: #### 5 7021-8 ####[facility] LABCLIA [id number] [place] [address] Basophils/100 WBC (Bld) 0.5 % Normal [facility] Comment on above: Order Comment: Speci men Type: BLOOD SPECIMENOrdering Facility: [facility] Address: [address] [place] [address] Performed By: #### 5 7021-8 ####[facility] LABCLIA [id number] [place] [address] Differential cell count method Nom (Bld) Auto Normal [facility] Comment on above: Order Comment: Speci men Type: BLOOD SPECIMENOrdering Facility: [facility] Address: [address] [place] [address] Performed By: #### 5 7021-8 ####[facility] LABCLIA [id number] [place] [address] Eosinophils (Bld) [#/Vol] 0.16 10*3/uL Normal <0.46 [facility] Comment on above: Order Comment: Speci men Type: BLOOD SPECIMENOrdering Facility: [facility] Address: [address] [place] [address] Performed By: #### 5 7021-8 ####[facility] LABIA [id number] [place] [address] Eosinophils/100 WBC (Bld) 4.3 % Normal [facility] Comment on above: Order Comment: Speci men Type: BLOOD SPECIMENOrdering Facility: [facility] Address: [address] [place] [address] Performed By: #### 5 7021-8 ####[facility] LABCLIA [id number] [place] [address] Erythrocyte distribution width (RBC) [Ratio] 17.2 % High 11.5-15.0 [facility] Comment on above: Order Comment: Speci men Type: BLOOD SPECIMENOrdering Facility: [facility] Address: [address] [place] [address] Performed By: #### 5 7021-8 ####[facility] LABCLIA [id number] [place] [address] Hematocrit (Bld) [Volume fraction] 37.3 % Normal 36.0-46.0 [facility] Comment on above: Order Comment: Speci men Type: BLOOD SPECIMENOrdering Facility: [facility] Address: [address] [place] [address] Performed By: #### 5 7021-8 ####[facility] LABCLIA [id number] [place] [address] Hemoglobin (Bld) [Mass/Vol] 12.1 g/dL Normal 11.5-15.5 [facility] Comment on above: Order Comment: Speci men Type: BLOOD SPECIMENOrdering Facility: [facility] Address: [address] [place] [address] Performed By: #### 5 7021-8 ####[facility] LABCLIA [id number] [place] [address] Immature granulocytes (Bld) [#/Vol] 10*3/uL Normal <0.10 [facility] Comment on above: Order Comment: Speci men Type: BLOOD SPECIMENOrdering Facility: [facility] Address: [address] [place] [address] Performed By: #### 5 7021-8 ####[facility] LABIA [id number] [place] [address] Immature granulocytes/100 WBC (Bld) 0.5 % Normal [facility] Comment on above: Order Comment: Speci men Type: BLOOD SPECIMENOrdering Facility: [facility] Address: [address] [place] [address] Performed By: #### 5 7021-8 ####[facility] LABCLIA [id number] [place] [address] Lymphocytes (Bld) [#/Vol] 1.21 10*3/uL Normal 1.00-4.00 [facility] Comment on above: Order Comment: Speci men Type: BLOOD SPECIMENOrdering Facility: [facility] Address: [address] [place] [address] Performed By: #### 5 7021-8 ####[facility] LABCLIA [id number] [place] [address] Lymphocytes/100 WBC (Bld) 32.8 % Normal [facility] Comment on above: Order Comment: Speci men Type: BLOOD SPECIMENOrdering Facility: [facility] Address: [address] [place] [address] Performed By: #### 5 7021-8 ####[facility] LABCLIA [id number] [place] [address] MCH (RBC) [Entitic mass] 29.2 pg Normal 26.0-34.0 [facility] Comment on above: Order Comment: Speci men Type: BLOOD SPECIMENOrdering Facility: [facility] Address: [address] [place] [address] Performed By: #### 5 7021-8 ####[facility] LABCLIA [id number] [place] [address] MCHC (RBC) [Mass/Vol] 32.4 g/dL Normal 30.5-36.0 [facility] Comment on above: Order Comment: Speci men Type: BLOOD SPECIMENOrdering Facility: [facility] Address: [address] [place] [address] Performed By: #### 5 7021-8 ####[facility] LABCLIA [id number] [place] [address] MCV (RBC) [Entitic vol] 90.1 fL Normal 80.0-100.0 [facility] Comment on above: Order Comment: Speci men Type: BLOOD SPECIMENOrdering Facility: [facility] Address: [address] [place] [address] Performed By: #### 5 7021-8 ####[facility] LABCLIA [id number] [place] [address] Monocytes (Bld) [#/Vol] 0.30 10*3/uL Normal <0.87 [facility] Comment on above: Order Comment: Speci men Type: BLOOD SPECIMENOrdering Facility: [facility] Address: [address] [place] [address] Performed By: #### 5 7021-8 ####[facility] LABCLIA [id number] [place] [address] Monocytes/100 WBC (Bld) 8.1 % Normal [facility] Comment on above: Order Comment: Speci men Type: BLOOD SPECIMENOrdering Facility: [facility] Address: [address] [place] [address] Performed By: #### 5 7021-8 ####[facility] LABCLIA [id number] [place] [address] Neutrophils (Bld) [#/Vol] 1.98 10*3/uL Normal 1.45-7.50 [facility] Comment on above: Order Comment: Speci men Type: BLOOD SPECIMENOrdering Facility: [facility] Address: [address] [place] [address] Performed By: #### 5 7021-8 ####[facility] LABCLIA [id number] [place] [address] Neutrophils/100 WBC (Bld) 53.8 % Normal [facility] Comment on above: Order Comment: Speci men Type: BLOOD SPECIMENOrdering Facility: [facility] Address: [address] [place] [address] Performed By: #### 5 7021-8 ####[facility] LABCLIA [id number] [place] [address] Nucleated RBC (Bld) [#/Vol] 10*3/uL Normal <0.01 [facility] Comment on above: Order Comment: Speci men Type: BLOOD SPECIMENOrdering Facility: [facility] Address: [address] [place] [address] Performed By: #### 5 7021-8 ####[facility] LABCLIA [id number] [place] [address] Nucleated RBC/100 WBC (Bld) [Ratio] 0.0 /100 WBC Normal [facility] Comment on above: Order Comment: Speci men Type: BLOOD SPECIMENOrdering Facility: [facility] Address: [address] [place] [address] Performed By: #### 5 7021-8 ####[facility] LABCLIA [id number] [place] [address] Platelet mean volume (Bld) [Entitic vol] 10.2 fL Normal 9.0-12.7 [facility] Comment on above: Order Comment: Speci men Type: BLOOD SPECIMENOrdering Facility: [facility] Address: [address] [place] [address] Performed By: #### 5 7021-8 ####[facility] LABCLIA [id number] [place] [address] Platelets (Bld) [#/Vol] 101 10*3/uL Low 150-400 [facility] Comment on above: Order Comment: Speci men Type: BLOOD SPECIMENOrdering Facility: [facility] Address: [address] [place] [address] Performed By: #### 5 7021-8 ####[facility] LABCLIA [id number] [place] [address] RBC (Bld) [#/Vol] 4.14 10*6/uL Normal 3.90-5.20 [facility] Comment on above: Order Comment: Speci men Type: BLOOD SPECIMENOrdering Facility: [facility] Address: [address] [place] [address] Performed By: #### 5 7021-8 ####[facility] LABCLIA [id number] [place] [address] WBC (Bld) [#/Vol] 3.69 10*3/uL Low 3.70-11.00 [facility] Comment on above: Order Comment: Speci men Type: BLOOD SPECIMENOrdering Facility: [facility] Address: [address] [place] [address] Performed By: #### 5 7021-8 ####[facility] LABCLIA [id number] [place] [address] Basophils (Bld) [#/Vol] <0.11 k/uL [facility] Basophils/100 WBC (Bld) 0.5 % [facility] Differential cell count method Nom (Bld) Auto [facility] Eosinophils (Bld) [#/Vol] 0.16 10*3/uL <0.46 k/uL [facility] Eosinophils/100 WBC (Bld) 4.3 % [facility] Erythrocyte distribution width (RBC) [Ratio] 17.2 % High 11.5 - 15.0 % [facility] Hematocrit (Bld) [Volume fraction] 37.3 % 36.0 - 46.0 % [facility] Hemoglobin (Bld) [Mass/Vol] 12.1 g/dL 11.5 - 15.5 g/dL [facility] Immature granulocytes (Bld) [#/Vol] <0.10 k/uL [facility] Immature granulocytes/100 WBC (Bld) 0.5 % [facility] Lymphocytes (Bld) [#/Vol] 1.21 10*3/uL 1.00 - 4.00 k/uL [facility] Lymphocytes/100 WBC (Bld) 32.8 % [facility] MCH (RBC) [Entitic mass] 29.2 pg 26.0 - 34.0 pg [facility] MCHC (RBC) [Mass/Vol] 32.4 g/dL 30.5 - 36.0 g/dL [facility] MCV (RBC) [Entitic vol] 90.1 fL 80.0 - 100.0 fL [facility] Monocytes (Bld) [#/Vol] 0.30 10*3/uL <0.87 k/uL [facility] Monocytes/100 WBC (Bld) 8.1 % [facility] Neutrophils (Bld) [#/Vol] 1.98 10*3/uL 1.45 - 7.50 k/uL [facility] Neutrophils/100 WBC (Bld) 53.8 % [facility] Nucleated RBC (Bld) [#/Vol] <0.01 k/uL [facility] Nucleated RBC/100 WBC (Bld) [Ratio] 0.0 /100 WBC [facility] Platelet mean volume (Bld) [Entitic vol] 10.2 fL 9.0 - 12.7 fL [facility] Platelets (Bld) [#/Vol] 101 10*3/uL Low 150 - 400 k/uL [facility] RBC (Bld) [#/Vol] 4.14 10*6/uL 3.90 - 5.2 0 m/uL [facility] WBC (Bld) [#/Vol] 3.69 10*3/uL Low 3.70 - 11. 00 k/uL [facility] CNCNPATEDon 11-21-2023 CNCNPATED Normal [facility] CNOVSPon 11-21-2023 CNOVSP Normal [facility] Comprehensive metabolic 2000 panelon 11-21-2023 Albumin [Mass/Vol] 4.2 g/dL Normal 3.9-4.9 [facility] Comment on above: Order Comment: Speci men Type: BLOOD SPECIMENOrdering Facility: [facility] Address: [address] [place] [address] Performed By: #### 2 4323-8 ####[facility] LABCLIA [id number] [place] [address] ALP [Catalytic activity/Vol] 69 U/L Normal 34-123 [facility] Comment on above: Order Comment: Speci men Type: BLOOD SPECIMENOrdering Facility: [facility] Address: [address] [place] [address] Performed By: #### 2 4323-8 ####[facility] LABCLIA [id number] [place] [address] ALT [Catalytic activity/Vol] 35 U/L Normal 7-38 [facility] Comment on above: Order Comment: Speci men Type: BLOOD SPECIMENOrdering Facility: [facility] Address: [address] [place] [address] Performed By: #### 2 4323-8 ####[facility] LABCLIA [id number] [place] [address] Anion gap [Moles/Vol] 11 mmol/L Normal 9-18 [facility] Comment on above: Order Comment: Speci men Type: BLOOD SPECIMENOrdering Facility: [facility] Address: [address] [place] [address] Performed By: #### 2 4323-8 ####[facility] LABCLIA [id number] [place] [address] AST [Catalytic activity/Vol] 43 U/L High 13-35 [facility] Comment on above: Order Comment: Speci men Type: BLOOD SPECIMENOrdering Facility: [facility] Address: [address] [place] [address] Performed By: #### 2 4323-8 ####[facility] LABCLIA [id number] [place] [address] Bilirubin [Mass/Vol] 0.5 mg/dL Normal 0.2-1.3 [facility] Comment on above: Order Comment: Speci men Type: BLOOD SPECIMENOrdering Facility: [facility] Address: [address] [place] [address] Performed By: #### 2 4323-8 ####[facility] LABCLIA [id number] [place] [address] Calcium [Mass/Vol] 9.5 mg/dL Normal 8.5-10.2 [facility] Comment on above: Order Comment: Speci men Type: BLOOD SPECIMENOrdering Facility: [facility] Address: [address] [place] [address] Performed By: #### 2 4323-8 ####[facility] LABCLIA [id number] [place] [address] Chloride [Moles/Vol] 107 mmol/L High 97-105 [facility] Comment on above: Order Comment: Speci men Type: BLOOD SPECIMENOrdering Facility: [facility] Address: [address] [place] [address] Performed By: #### 2 4323-8 ####[facility] LABCLIA [id number] [place] [address] CO2 [Moles/Vol] 25 mmol/L Normal 22-30 [facility] Comment on above: Order Comment: Speci men Type: BLOOD SPECIMENOrdering Facility: [facility] Address: [address] [place] [address] Performed By: #### 2 4323-8 ####[facility] LABCLIA [id number] [place] [address] Creatinine [Mass/Vol] 0.84 mg/dL Normal 0.58-0.96 [facility] Comment on above: Order Comment: Speci men Type: BLOOD SPECIMENOrdering Facility: [facility] Address: [address] [place] [address] Performed By: #### 2 4323-8 ####[facility] LABCLIA [id number] [place] [address] Creatinine and Glomerular filtration rate.predicted panel (S/P/Bld) 78 mL/min/1.73m??? Normal >=60 [facility] Comment on above: Order Comment: Speci men Type: BLOOD SPECIMENOrdering Facility: [facility] Address: [address] [place] [address] Result Comment: Kelsey mated Glomerular Filtration Rate (eGFR) is calculated using the 2021 CKD-EPI creatinine equation. This equation utilizes serum creatinine, sex, and age as parameters. The creatinine assay has traceable calibration to isotope dilution-mass spectrometry. Refer to KDIGO guidelines for clinical interpretation. In patients with unstable renal function, e.g. those with acute kidney injury, the eGFR may not accurately reflect actual GFR. Performed By: #### 2 4323-8 ####[facility] LABCLIA [id number] [place] [address] Glucose [Mass/Vol] 110 mg/dL High 74-99 [facility] Comment on above: Order Comment: Speci men Type: BLOOD SPECIMENOrdering Facility: [facility] Address: [address] [place], [place] [address] Result Comment: The [place] [employer] (ADA) provides guidance for cutoff values for fasting glucose and random glucose. The ADA defines fasting as no caloric intake for at least 8 hours. Fasting plasma glucose results between 100 to 125 mg/dL indicate increased risk for diabetes (prediabetes).Fasting plasma glucose results greater than or equal to 126 mg/dL meet the criteria for diagnosis of diabetes. In the absence of unequivocal hyperglycemia, results should be confirmed by repeat testing. In a patient with classic symptoms of hyperglycemia or hyperglycemic crisis, random plasma glucose results greater than or equal to 200 mg/dL meet the criteria for diagnosis of diabetes.Reference: Standards of Medical Care in Diabetes 2016, [place] [employer] Association. Diabetes Care. 2016.39(Suppl 1). Performed By: #### 2 4323-8 ####[facility] LABCLIA [id number] [place] [address] Potassium [Moles/Vol] 4.3 mmol/L Normal 3.7-5.1 [facility] Comment on above: Order Comment: Speci men Type: BLOOD SPECIMENOrdering Facility: [facility] Address: [address] [place] [address] Performed By: #### 2 4323-8 ####[facility] LABCLIA [id number] [place] [address] Protein [Mass/Vol] 6.8 g/dL Normal 6.3-8.0 [facility] Comment on above: Order Comment: Speci men Type: BLOOD SPECIMENOrdering Facility: [facility] Address: [facility] [place] [address] Performed By: #### 2 4323-8 ####[facility] LABCLIA [id number] [place] [address] Sodium [Moles/Vol] 143 mmol/L Normal 136-144 [facility] Comment on above: Order Comment: Speci men Type: BLOOD SPECIMENOrdering Facility: [facility] Address: [address] [place] [address] Performed By: #### 2 4323-8 ####[facility] LABCLIA [id number] [place] [address] Urea nitrogen [Mass/Vol] 14 mg/dL Normal 7-21 [facility] Comment on above: Order Comment: Speci men Type: BLOOD SPECIMENOrdering Facility: [facility] Address: [address] [place] [address] Performed By: #### 2 4323-8 ####[facility] LABCLIA [id number] [place] [address] Albumin [Mass/Vol] 4.2 g/dL 3.9 - 4.9 g/dL [facility] ALP [Catalytic activity/Vol] 69 U/L 34 - 123 U/L [facility] ALT [Catalytic activity/Vol] 35 U/L 7 - 38 U/L [facility] Anion gap [Moles/Vol] 11 mmol/L 9 - 18 mmol/L [facility] AST [Catalytic activity/Vol] 43 U/L High 13 - 35 U/L [facility] Bilirubin [Mass/Vol] 0.5 mg/dL 0.2 - 1 .3 mg/dL [facility] Calcium [Mass/Vol] 9.5 mg/dL 8.5 - 10. 2 mg/dL [facility] Chloride [Moles/Vol] 107 mmol/L High 97 - 10 5 mmol/L [facility] CO2 [Moles/Vol] 25 mmol/L 22 - 30 mmol/L [facility] Creatinine [Mass/Vol] 0.84 mg/dL 0.58 - 0.96 mg/dL [facility] Estimated Glomerular Filtration Rate 78 mL/min/1.73m >=60 mL/min/1.73m [facility] Glucose [Mass/Vol] 110 mg/dL High 74 - 99 mg/dL [facility] Potassium [Moles/Vol] 4.3 mmol/L 3.7 - 5.1 mmol/L [facility] Protein [Mass/Vol] 6.8 g/dL 6.3 - 8.0 g/dL [facility] Sodium [Moles/Vol] 143 mmol/L 136 - 144 mmol/L [facility] Urea nitrogen [Mass/Vol] 14 mg/dL 7 - 21 mg/dL [facility] CNOVon 11-13-2023 CNOV Normal [facility] CBC W Auto Differential pane l (Bld)on 11-07-2023 Basophils (Bld) [#/Vol] 0.03 10*3/uL Normal <0.11 [facility] Comment on above: Order Comment: Speci men Type: BLOOD SPECIMENOrdering Facility: [facility] Address: [address] [place] [address] Performed By: #### 5 7021-8 ####[facility] LABCLIA [id number] [place] [address] Basophils/100 WBC (Bld) 0.5 % Normal [facility] Comment on above: Order Comment: Speci men Type: BLOOD SPECIMENOrdering Facility: [facility] Address: [address] [place] [address] Performed By: #### 5 7021-8 ####[facility] LABCLIA [id number] [place] [address] Differential cell count method Nom (Bld) Auto Normal [facility] Comment on above: Order Comment: Speci men Type: BLOOD SPECIMENOrdering Facility: [facility] Address: [address] [place] [address] Performed By: #### 5 7021-8 ####[facility] LABCLIA [id number] [place] [address] Eosinophils (Bld) [#/Vol] 0.18 10*3/uL Normal <0.46 [facility] Comment on above: Order Comment: Speci men Type: BLOOD SPECIMENOrdering Facility: [facility] Address: [address] [place] [address] Performed By: #### 5 7021-8 ####[facility] LABCLIA [id number] [place] [address] Eosinophils/100 WBC (Bld) 3.2 % Normal [facility] Comment on above: Order Comment: Speci men Type: BLOOD SPECIMENOrdering Facility: [facility] Address: [address] [place] [address] Performed By: #### 5 7021-8 ####[facility] LABCLIA [id number] [place] [address] Erythrocyte distribution width (RBC) [Ratio] 16.6 % High 11.5-15.0 [facility] Comment on above: Order Comment: Speci men Type: BLOOD SPECIMENOrdering Facility: [facility] Address: [address] [place] [address] Performed By: #### 5 7021-8 ####[facility] LABCLIA [id number] [place] [address] Hematocrit (Bld) [Volume fraction] 35.1 % Low 36.0-46.0 [facility] Comment on above: Order Comment: Speci men Type: BLOOD SPECIMENOrdering Facility: [facility] Address: [address] [place] [address] Performed By: #### 5 7021-8 ####[facility] LABCLIA [id number] [place] [address] Hemoglobin (Bld) [Mass/Vol] 11.7 g/dL Normal 11.5-15.5 [facility] Comment on above: Order Comment: Speci men Type: BLOOD SPECIMENOrdering Facility: [facility] Address: [address] [place] [address] Performed By: #### 5 7021-8 ####[facility] LABCLIA [id number] [place] [address] Immature granulocytes (Bld) [#/Vol] 0.06 10*3/uL Normal <0.10 [facility] Comment on above: Order Comment: Speci men Type: BLOOD SPECIMENOrdering Facility: [facility] Address: [address] [place] [address] Performed By: #### 5 7021-8 ####[facility] LABCLIA [id number] [place] [address] Immature granulocytes/100 WBC (Bld) 1.1 % Normal [facility] Comment on above: Order Comment: Speci men Type: BLOOD SPECIMENOrdering Facility: [facility] Address: [address] [place] [address] Performed By: #### 5 7021-8 ####[facility] LABCLIA [id number] [place] [address] Lymphocytes (Bld) [#/Vol] 1.42 10*3/uL Normal 1.00-4.00 [facility] Comment on above: Order Comment: Speci men Type: BLOOD SPECIMENOrdering Facility: [facility] Address: [address] [place] [address] Performed By: #### 5 7021-8 ####[facility] LABCLIA [id number] [place] [address] Lymphocytes/100 WBC (Bld) 25.0 % Normal [facility] Comment on above: Order Comment: Speci men Type: BLOOD SPECIMENOrdering Facility: [facility] Address: [address] [place] [address] Performed By: #### 5 7021-8 ####[facility] LABCLIA [id number] [place] [address] MCH (RBC) [Entitic mass] 29.4 pg Normal 26.0-34.0 [facility] Comment on above: Order Comment: Speci men Type: BLOOD SPECIMENOrdering Facility: [facility] Address: [address] [place] [address] Performed By: #### 5 7021-8 ####[facility] LABCLIA [id number] [place] [address] MCHC (RBC) [Mass/Vol] 33.3 g/dL Normal 30.5-36.0 [facility] Comment on above: Order Comment: Speci men Type: BLOOD SPECIMENOrdering Facility: [facility] Address: [address] [place] [address] Performed By: #### 5 7021-8 ####[facility] LABCLIA [id number] [place] [address] MCV (RBC) [Entitic vol] 88.2 fL Normal 80.0-100.0 [facility] Comment on above: Order Comment: Speci men Type: BLOOD SPECIMENOrdering Facility: [facility] Address: [address] [place] [address] Performed By: #### 5 7021-8 ####[facility] LABCLIA [id number] [place] [address] Monocytes (Bld) [#/Vol] 0.45 10*3/uL Normal <0.87 [facility] Comment on above: Order Comment: Speci men Type: BLOOD SPECIMENOrdering Facility: [facility] Address: [address] [place] [address] Performed By: #### 5 7021-8 ####[facility] LABCLIA [id number] [place] [address] Monocytes/100 WBC (Bld) 7.9 % Normal [facility] Comment on above: Order Comment: Speci men Type: BLOOD SPECIMENOrdering Facility: [facility] Address: [address] [place] [address] Performed By: #### 5 7021-8 ####[facility] LABCLIA [id number] [place] [address] Neutrophils (Bld) [#/Vol] 3.53 10*3/uL Normal 1.45-7.50 [facility] Comment on above: Order Comment: Speci men Type: BLOOD SPECIMENOrdering Facility: [facility] Address: [address] [place] [address] Performed By: #### 5 7021-8 ####[facility] LABCLIA [id number] [place] [address] Neutrophils/100 WBC (Bld) 62.3 % Normal [facility] Comment on above: Order Comment: Speci men Type: BLOOD SPECIMENOrdering Facility: [facility] Address: [address] [place] [address] Performed By: #### 5 7021-8 ####[facility] LABCLIA [id number] [place] [address] Nucleated RBC (Bld) [#/Vol] 10*3/uL Normal <0.01 [facility] Comment on above: Order Comment: Speci men Type: BLOOD SPECIMENOrdering Facility: [facility] Address: [address] [place] [address] Performed By: #### 5 7021-8 ####[facility] LABCLIA [id number] [place] [address] Nucleated RBC/100 WBC (Bld) [Ratio] 0.0 /100 WBC Normal [facility] Comment on above: Order Comment: Speci men Type: BLOOD SPECIMENOrdering Facility: [facility] Address: [address] [place] [address] Performed By: #### 5 7021-8 ####[facility] LABIA [id number] [place] [address] Platelet mean volume (Bld) [Entitic vol] 10.8 fL Normal 9.0-12.7 [facility] Comment on above: Order Comment: Speci men Type: BLOOD SPECIMENOrdering Facility: [facility] Address: [address] [place] [address] Performed By: #### 5 7021-8 ####[facility] LABCLIA [id number] [place] [address] Platelets (Bld) [#/Vol] 72 10*3/uL Low 150-400 [facility] Comment on above: Order Comment: Speci men Type: BLOOD SPECIMENOrdering Facility: [facility] Address: [address] [place] [address] Result Comment: Resu lts checked and verified.No clot detected. Performed By: #### 5 7021-8 ####[facility] LABIA [id number] [place] [address] RBC (Bld) [#/Vol] 3.98 10*6/uL Normal 3.90-5.20 [facility] Comment on above: Order Comment: Speci men Type: BLOOD SPECIMENOrdering Facility: [facility] Address: [address] [place] [address] Performed By: #### 5 7021-8 ####[facility] LABIA [id number] [place] [address] WBC (Bld) [#/Vol] 5.67 10*3/uL Normal 3.70-11.00 [facility] Comment on above: Order Comment: Speci men Type: BLOOD SPECIMENOrdering Facility: [facility] Address: [address] [place] [address] Performed By: #### 5 7021-8 ####[facility] LABIA [id number] [place] [address] CEA SerPl-ncon 11-07-2023 Carcinoembryonic Ag [Mass/Vol] 1.2 ng/mL Normal <=2.9 [facility] Comment on above: Order Comment: Speci men Type: BLOOD SPECIMENOrdering Facility: [facility] Address: [address], [place] [address] Result Comment: Carc inoembryonic antigen test is used as an aid in monitoring response to treatment or recurrence in patients with established colorectal, breast, lung, prostatic, pancreatic, and ovarian carcinomas. Clinical correlation is required.The Carcinoembryonic antigen test was performed using the [employer] DXI paramagnetic particle chemiluminescent immunoassay method. Results obtained with different assay methods or kits cannot be used interchangeably. Performed By: #### 2 039-6 ####[facility] LABCLIA [id number] [facility] [id number] [id number] [place] CT ABD/PEL W IVCONon 024 CT ABD/PEL W IVCON Normal [facility] CT CHEST W IVCONon 4 CT CHEST W IVCON Normal [facility] Comprehensive metabolic 2000 panelon 11-07-2023 Albumin [Mass/Vol] 4.0 g/dL Normal 3.9-4.9 [facility] Comment on above: Order Comment: Speci men Type: BLOOD SPECIMENOrdering Facility: [facility] Address: [address] [place] [address] Performed By: #### 2 4323-8 ####[facility] LABCLIA [id number] [place] [address] ALP [Catalytic activity/Vol] 78 U/L Normal 34-123 [facility] Comment on above: Order Comment: Speci men Type: BLOOD SPECIMENOrdering Facility: [facility] Address: [address] [place] [address] Performed By: #### 2 4323-8 ####[facility]CL[facility] [id number] [place] [address] ALT [Catalytic activity/Vol] 30 U/L Normal 7-38 [facility] Comment on above: Order Comment: Speci men Type: BLOOD SPECIMENOrdering Facility: [facility] Address: [address] [place] [address] Performed By: #### 2 4323-8 ####[facility]CL[facility] [id number] [place] [address] Anion gap [Moles/Vol] 9 mmol/L Normal 9-18 [facility] Comment on above: Order Comment: Speci men Type: BLOOD SPECIMENOrdering Facility: [facility] Address: [address] [place] [address] Performed By: #### 2 4323-8 ####[facility]CL[facility] [id number] [place] [address] AST [Catalytic activity/Vol] 37 U/L High 13-35 [facility] Comment on above: Order Comment: Speci men Type: BLOOD SPECIMENOrdering Facility: [facility] Address: [address] [place] [address] Performed By: #### 2 4323-8 ####[facility]CL[facility] [id number] [place] [address] Bilirubin [Mass/Vol] 0.4 mg/dL Normal 0.2-1.3 [facility] Comment on above: Order Comment: Speci men Type: BLOOD SPECIMENOrdering Facility: [facility] Address: [address] [place] [address] Performed By: #### 2 4323-8 ####[facility]CL[facility] [id number] [place] [address] Calcium [Mass/Vol] 9.5 mg/dL Normal 8.5-10.2 [facility] Comment on above: Order Comment: Speci men Type: BLOOD SPECIMENOrdering Facility: [facility] Address: [address] [place] [address] Performed By: #### 2 4323-8 ####[facility]CL[facility] [id number] [place] [address] Chloride [Moles/Vol] 109 mmol/L High 97-105 [facility] Comment on above: Order Comment: Speci men Type: BLOOD SPECIMENOrdering Facility: [facility] Address: [address] [place] [address] Performed By: #### 2 4323-8 ####[facility]CL[facility] [id number] [place] [address] CO2 [Moles/Vol] 26 mmol/L Normal 22-30 [facility] Comment on above: Order Comment: Speci men Type: BLOOD SPECIMENOrdering Facility: [facility] Address: [address] [place] [address] Performed By: #### 2 4323-8 ####[facility]CL[facility] [id number] [place] [address] Creatinine [Mass/Vol] 0.85 mg/dL Normal 0.58-0.96 [facility] Comment on above: Order Comment: Speci men Type: BLOOD SPECIMENOrdering Facility: [facility] Address: [address] [place] [address] Performed By: #### 2 4323-8 ####[facility]CL[facility] [id number] [place] [address] Creatinine and Glomerular filtration rate.predicted panel (S/P/Bld) 77 mL/min/1.73m??? Normal >=60 [facility] Comment on above: Order Comment: Speci men Type: BLOOD SPECIMENOrdering Facility: [facility] Address: [address] [place] [address] Result Comment: Kelsey mated Glomerular Filtration Rate (eGFR) is calculated using the 2020 CKD-EPI creatinine equation. This equation utilizes serum creatinine, sex, and age as parameters. The creatinine assay has traceable calibration to isotope dilution-mass spectrometry. Refer to KDIGO guidelines for clinical interpretation. In patients with unstable renal function, e.g. those with acute kidney injury, the eGFR may not accurately reflect actual GFR. Performed By: #### 2 4323-8 ####[facility] [id number] [place] [address] Glucose [Mass/Vol] 115 mg/dL High 74-99 [facility] Comment on above: Order Comment: Speci men Type: BLOOD SPECIMENOrdering Facility: [facility] Address: [address] [place] [address] Result Comment: The [place] Diabetes [employer] (ADA) provides guidance for cutoff values for fasting glucose and random glucose. The ADA defines fasting as no caloric intake for at least 8 hours. Fasting plasma glucose results between 100 to 125 mg/dL indicate increased risk for diabetes (prediabetes).Fasting plasma glucose results greater than or equal to 126 mg/dL meet the criteria for diagnosis of diabetes. In the absence of unequivocal hyperglycemia, results should be confirmed by repeat testing. In a patient with classic symptoms of hyperglycemia or hyperglycemic crisis, random plasma glucose results greater than or equal to 200 mg/dL meet the criteria for diagnosis of diabetes.Reference: Standards of Medical Care in Diabetes 2016, [place] [employer]. Diabetes Care. 2016.39(Suppl 1). Performed By: #### 2 4323-8 ####[facility] [id number] [place] [address] Potassium [Moles/Vol] 4.2 mmol/L Normal 3.7-5.1 [facility] Comment on above: Order Comment: Speci men Type: BLOOD SPECIMENOrdering Facility: [facility] Address: [address] [place] [address] Performed By: #### 2 4323-8 ####[facility]CL[facility] [id number] [place] [address] Protein [Mass/Vol] 6.9 g/dL Normal 6.3-8.0 [facility] Comment on above: Order Comment: Speci men Type: BLOOD SPECIMENOrdering Facility: [facility] Address: [address] [id number] Performed By: #### 2 4323-8 ####[facility] [id number] [place] [address] Sodium [Moles/Vol] 144 mmol/L Normal 136-144 [facility] Comment on above: Order Comment: Speci men Type: BLOOD SPECIMENOrdering Facility: [facility] Address: [address] [place] [address] Performed By: #### 2 4323-8 ####[facility] [id number] [place] [address] Urea nitrogen [Mass/Vol] 12 mg/dL Normal 7-21 [facility] Comment on above: Order Comment: Speci men Type: BLOOD SPECIMENOrdering Facility: [facility] Address: [address] [place] [address] Performed By: #### 2 4323-8 ####[facility]CL[facility] [id number] [place] [address] Consultation Noteon 10-29-19 Consultation Note [id number] [id number]#[id number] F Normal [facility] CBC W Auto Differential pane l (Bld)on 10-24-2023 Basophils (Bld) [#/Vol] 0.03 10*3/uL Normal <0.11 [facility] Comment on above: Order Comment: Speci men Type: BLOOD SPECIMENOrdering Facility: [facility] Address: [address] [place] [address] Performed By: #### 5 7021-8 ####[facility] LABIA [id number] [place] [address] Basophils/100 WBC (Bld) 0.7 % Normal [facility] Comment on above: Order Comment: Speci men Type: BLOOD SPECIMENOrdering Facility: [facility] Address: [address] [place] [address] Performed By: #### 5 7021-8 ####[facility]CL[facility] [id number] [place] [address] Differential cell count method Nom (Bld) Auto Normal [facility] Comment on above: Order Comment: Speci men Type: BLOOD SPECIMENOrdering Facility: [facility] Address: [address] [place] [address] Performed By: #### 5 7021-8 ####[facility]CL[facility] [id number] [place] [address] Eosinophils (Bld) [#/Vol] 0.21 10*3/uL Normal <0.46 [facility] Comment on above: Order Comment: Speci men Type: BLOOD SPECIMENOrdering Facility: [facility] Address: [address] [place] [address] Performed By: #### 5 7021-8 ####[facility]CL[facility] [id number] [place] [address] Eosinophils/100 WBC (Bld) 4.8 % Normal [facility] Comment on above: Order Comment: Speci men Type: BLOOD SPECIMENOrdering Facility: [facility] Address: [address] [place] [address] Performed By: #### 5 7021-8 ####[facility]CL[facility] [id number] [place] [address] Erythrocyte distribution width (RBC) [Ratio] 15.5 % High 11.5-15.0 [facility] Comment on above: Order Comment: Speci men Type: BLOOD SPECIMENOrdering Facility: [facility] Address: [address] [place] [address] Performed By: #### 5 7021-8 ####[facility]CL[facility] [id number] [place] [address] Hematocrit (Bld) [Volume fraction] 37.0 % Normal 36.0-46.0 [facility] Comment on above: Order Comment: Speci men Type: BLOOD SPECIMENOrdering Facility: [facility] Address: [address] [place] [address] Performed By: #### 5 7021-8 ####[facility]CL[facility] [id number] [place] [address] Hemoglobin (Bld) [Mass/Vol] 12.2 g/dL Normal 11.5-15.5 [facility] Comment on above: Order Comment: Speci men Type: BLOOD SPECIMENOrdering Facility: [facility] Address: [address] [place] [address] Performed By: #### 5 7021-8 ####[facility]CL[facility] [id number] [place] [address] Immature granulocytes (Bld) [#/Vol] 0.03 10*3/uL Normal <0.10 [facility] Comment on above: Order Comment: Speci men Type: BLOOD SPECIMENOrdering Facility: [facility] Address: [address] [place] [address] Performed By: #### 5 7021-8 ####[facility]CL[facility] [id number] [place] [address] Immature granulocytes/100 WBC (Bld) 0.7 % Normal [facility] Comment on above: Order Comment: Speci men Type: BLOOD SPECIMENOrdering Facility: [facility] Address: [address] [place] [address] Performed By: #### 5 7021-8 ####[facility]CL[facility] [id number] [place] [address] Lymphocytes (Bld) [#/Vol] 1.55 10*3/uL Normal 1.00-4.00 [facility] Comment on above: Order Comment: Speci men Type: BLOOD SPECIMENOrdering Facility: [facility] Address: [address] [place] [address] Performed By: #### 5 7021-8 ####[facility]CL[facility] [id number] [place] [address] Lymphocytes/100 WBC (Bld) 35.3 % Normal [facility] Comment on above: Order Comment: Speci men Type: BLOOD SPECIMENOrdering Facility: [facility] Address: [address] [place] [address] Performed By: #### 5 7021-8 ####[facility]CL[facility] [id number] [place] [address] MCH (RBC) [Entitic mass] 28.5 pg Normal 26.0-34.0 [facility] Comment on above: Order Comment: Speci men Type: BLOOD SPECIMENOrdering Facility: [facility] Address: [address] [place] [address] Performed By: #### 5 7021-8 ####[facility]CL[facility] [id number] [place] [address] MCHC (RBC) [Mass/Vol] 33.0 g/dL Normal 30.5-36.0 [facility] Comment on above: Order Comment: Speci men Type: BLOOD SPECIMENOrdering Facility: [facility] Address: [address] [place] [address] Performed By: #### 5 7021-8 ####[facility]CLIA [id number] [place] [address] MCV (RBC) [Entitic vol] 86.4 fL Normal 80.0-100.0 [facility] Comment on above: Order Comment: Speci men Type: BLOOD SPECIMENOrdering Facility: [facility] Address: [address] [place] [address] Performed By: #### 5 7021-8 ####[facility]CL[facility] [id number] [place] [address] Monocytes (Bld) [#/Vol] 0.33 10*3/uL Normal <0.87 [facility] Comment on above: Order Comment: Speci men Type: BLOOD SPECIMENOrdering Facility: [facility] Address: [address] [place] [address] Performed By: #### 5 7021-8 ####[facility]CL[facility] [id number] [place] [address] Monocytes/100 WBC (Bld) 7.5 % Normal [facility] Comment on above: Order Comment: Speci men Type: BLOOD SPECIMENOrdering Facility: [facility] Address: [address] [place] [address] Performed By: #### 5 7021-8 ####[facility]CL[facility] [id number] [place] [address] Neutrophils (Bld) [#/Vol] 2.24 10*3/uL Normal 1.45-7.50 [facility] Comment on above: Order Comment: Speci men Type: BLOOD SPECIMENOrdering Facility: [facility] Address: [address] [place] [address] Performed By: #### 5 7021-8 ####[facility]CL[facility] [id number] [place] [address] Neutrophils/100 WBC (Bld) 51.0 % Normal [facility] Comment on above: Order Comment: Speci men Type: BLOOD SPECIMENOrdering Facility: [facility] Address: [address] [place] [address] Performed By: #### 5 7021-8 ####[facility] LABIA [id number] [place] [address] Nucleated RBC (Bld) [#/Vol] 10*3/uL Normal <0.01 [facility] Comment on above: Order Comment: Speci men Type: BLOOD SPECIMENOrdering Facility: [facility] Address: [address] [place] [address] Performed By: #### 5 7021-8 ####[facility]CL[facility] [id number] [place] [address] Nucleated RBC/100 WBC (Bld) [Ratio] 0.0 /100 WBC Normal [facility] Comment on above: Order Comment: Speci men Type: BLOOD SPECIMENOrdering Facility: [facility] Address: [address] [place] [address] Performed By: #### 5 7021-8 ####[facility] LABIA [id number] [place] [address] Platelet mean volume (Bld) [Entitic vol] 11.3 fL Normal 9.0-12.7 [facility] Comment on above: Order Comment: Speci men Type: BLOOD SPECIMENOrdering Facility: [facility] Address: [address] [place] [address] Performed By: #### 5 7021-8 ####[facility]CL[facility] [id number] [place] [address] Platelets (Bld) [#/Vol] 81 10*3/uL Low 150-400 [facility] Comment on above: Order Comment: Speci men Type: BLOOD SPECIMENOrdering Facility: [facility] Address: [address] [place] [address] Result Comment: Resu lts checked and verified.No clot detected. Performed By: #### 5 7021-8 ####[facility] LABIA [id number] [place] [address] RBC (Bld) [#/Vol] 4.28 10*6/uL Normal 3.90-5.20 [facility] Comment on above: Order Comment: Speci men Type: BLOOD SPECIMENOrdering Facility: [facility] Address: [address] [place] [address] Performed By: #### 5 7021-8 ####[facility] LABIA [id number] [place] [address] WBC (Bld) [#/Vol] 4.39 10*3/uL Normal 3.70-11.00 [facility] Comment on above: Order Comment: Speci men Type: BLOOD SPECIMENOrdering Facility: [facility] Address: [address] [place] [address] Performed By: #### 5 7021-8 ####[facility]CL[facility] [id number] [place] [address] Basophils (Bld) [#/Vol] 0.03 10*3/uL <0.11 k/uL [facility] Basophils/100 WBC (Bld) 0.7 % [facility] Differential cell count method Nom (Bld) Auto [facility] Eosinophils (Bld) [#/Vol] 0.21 10*3/uL <0.46 k/uL [facility] Eosinophils/100 WBC (Bld) 4.8 % [facility] Erythrocyte distribution width (RBC) [Ratio] 15.5 % High 11.5 - 15.0 % [facility] Hematocrit (Bld) [Volume fraction] 37.0 % 36.0 - 46.0 % [facility] Hemoglobin (Bld) [Mass/Vol] 12.2 g/dL 11.5 - 15.5 g/dL [facility] Immature granulocytes (Bld) [#/Vol] 0.03 10*3/uL <0.10 k/uL [facility] Immature granulocytes/100 WBC (Bld) 0.7 % [facility] Lymphocytes (Bld) [#/Vol] 1.55 10*3/uL 1.00 - 4.00 k/uL [facility] Lymphocytes/100 WBC (Bld) 35.3 % [facility] MCH (RBC) [Entitic mass] 28.5 pg 26.0 - 34.0 pg [facility] MCHC (RBC) [Mass/Vol] 33.0 g/dL 30.5 - 36.0 g/dL [facility] MCV (RBC) [Entitic vol] 86.4 fL 80.0 - 100.0 fL [facility] Monocytes (Bld) [#/Vol] 0.33 10*3/uL <0.87 k/uL [facility] Monocytes/100 WBC (Bld) 7.5 % [facility] Neutrophils (Bld) [#/Vol] 2.24 10*3/uL 1.45 - 7.50 k/uL [facility] Neutrophils/100 WBC (Bld) 51.0 % [facility] Nucleated RBC (Bld) [#/Vol] <0.01 k/uL [facility] Nucleated RBC/100 WBC (Bld) [Ratio] 0.0 /100 WBC [facility] Platelet mean volume (Bld) [Entitic vol] 11.3 fL 9.0 - 12.7 fL [facility] Platelets (Bld) [#/Vol] 81 10*3/uL Low 150 - 400 k/uL [facility] RBC (Bld) [#/Vol] 4.28 10*6/uL 3.90 - 5.2 0 m/uL [facility] WBC (Bld) [#/Vol] 4.39 10*3/uL 3.70 - 11. 00 k/uL [facility] CNOVSPon 10-24-2023 CNOVSP Normal [facility] metabolic 2000 panelon 10-24-2023 Albumin [Mass/Vol] 4.1 g/dL Normal 3.9-4.9 [facility] Comment on above: Order Comment: Speci men Type: BLOOD SPECIMENOrdering Facility: [facility] Address: [address] [place] [address] Performed By: #### 2 4323-8 ####[facility]CL[facility] [id number] [place] [address] ALP [Catalytic activity/Vol] 78 U/L Normal 34-123 [facility] Comment on above: Order Comment: Speci men Type: BLOOD SPECIMENOrdering Facility: [facility] Address: [address] [place] [address] Performed By: #### 2 4323-8 ####[facility]CL[facility] [id number] [place] [address] ALT [Catalytic activity/Vol] 31 U/L Normal 7-38 [facility] Comment on above: Order Comment: Speci men Type: BLOOD SPECIMENOrdering Facility: [facility] Address: [address] [place] [address] Performed By: #### 2 4323-8 ####[facility]CL[facility] [id number] [place] [address] Anion gap [Moles/Vol] 10 mmol/L Normal 9-18 [facility] Comment on above: Order Comment: Speci men Type: BLOOD SPECIMENOrdering Facility: [facility] Address: [address] [place] [address] Performed By: #### 2 4323-8 ####[facility] LABIA [id number] [place] [address] AST [Catalytic activity/Vol] 35 U/L Normal 13-35 [facility] Comment on above: Order Comment: Speci men Type: BLOOD SPECIMENOrdering Facility: [facility] Address: [address] [place] [address] Performed By: #### 2 4323-8 ####[facility]CL[facility] [id number] [place] [address] Bilirubin [Mass/Vol] 0.2 mg/dL Normal 0.2-1.3 [facility] Comment on above: Order Comment: Speci men Type: BLOOD SPECIMENOrdering Facility: [facility] Address: [address] [place] [address] Performed By: #### 2 4323-8 ####[facility] LABCLIA [id number] [place] [address] Calcium [Mass/Vol] 9.7 mg/dL Normal 8.5-10.2 [facility] Comment on above: Order Comment: Speci men Type: BLOOD SPECIMENOrdering Facility: [facility] Address: [address] [place] [address] Performed By: #### 2 4323-8 ####[facility]CL[facility] [id number] [place] [address] Chloride [Moles/Vol] 107 mmol/L High 97-105 [facility] Comment on above: Order Comment: Speci men Type: BLOOD SPECIMENOrdering Facility: [facility] Address: [address] [place] [address] Performed By: #### 2 4323-8 ####[facility]CL[facility] [id number] [place] [address] CO2 [Moles/Vol] 26 mmol/L Normal 22-30 [facility] Comment on above: Order Comment: Speci men Type: BLOOD SPECIMENOrdering Facility: [facility] Address: [address] [place] [address] Performed By: #### 2 4323-8 ####[facility]CL[facility] [id number] [place] [address] Creatinine [Mass/Vol] 0.84 mg/dL Normal 0.58-0.96 [facility] Comment on above: Order Comment: Fatou nava Type: BLOOD SPECIMENOrdering Facility: [facility] Address: [address] [place] [address] Performed By: #### 2 4323-8 ####[facility]CL[facility] [id number] [place] [address] Creatinine and Glomerular filtration rate.predicted panel (S/P/Bld) 78 mL/min/1.73m??? Normal >=60 [facility] Comment on above: Order Comment: Spectrinidad nava Type: BLOOD SPECIMENOrdering Facility: [facility] Address: [address] [place] [address] Result Comment: Kelsey mated Glomerular Filtration Rate (eGFR) is calculated using the 2020 CKD-EPI creatinine equation. This equation utilizes serum creatinine, sex, and age as parameters. The creatinine assay has traceable calibration to isotope dilution-mass spectrometry. Refer to KDIGO guidelines for clinical interpretation. In patients with unstable renal function, e.g. those with acute kidney injury, the eGFR may not accurately reflect actual GFR. Performed By: #### 2 4323-8 ####[facility]CL[facility] [id number] [place] [address] Glucose [Mass/Vol] 150 mg/dL High 74-99 [facility] Comment on above: Order Comment: Fatou brandy Type: BLOOD SPECIMENOrdering Facility: [facility] Address: [address] [id number] Result Comment: The [place] Diabetes [employer] (ADA) provides guidance for cutoff values for fasting glucose and random glucose. The ADA defines fasting as no caloric intake for at least 8 hours. Fasting plasma glucose results between 100 to 125 mg/dL indicate increased risk for diabetes (prediabetes).Fasting plasma glucose results greater than or equal to 126 mg/dL meet the criteria for diagnosis of diabetes. In the absence of unequivocal hyperglycemia, results should be confirmed by repeat testing. In a patient with classic symptoms of hyperglycemia or hyperglycemic crisis, random plasma glucose results greater than or equal to 200 mg/dL meet the criteria for diagnosis of diabetes.Reference: Standards of Medical Care in Diabetes 2016, [place] [employer]. Diabetes Care. 2016.39(Suppl 1). Performed By: #### 2 4323-8 ####[facility]CL[facility] [id number] [place] [address] Potassium [Moles/Vol] 4.4 mmol/L Normal 3.7-5.1 [facility] Comment on above: Order Comment: Speci men Type: BLOOD SPECIMENOrdering Facility: [facility] Address: [address] [place] [address] Performed By: #### 2 4323-8 ####[facility]CL[facility] [id number] [place] [address] Protein [Mass/Vol] 7.1 g/dL Normal 6.3-8.0 [facility] Comment on above: Order Comment: Speci men Type: BLOOD SPECIMENOrdering Facility: [facility] Address: [address] [place] [address] Performed By: #### 2 4323-8 ####[facility]CL[facility] [id number] [place] [address] Sodium [Moles/Vol] 143 mmol/L Normal 136-144 [facility] Comment on above: Order Comment: Speci men Type: BLOOD SPECIMENOrdering Facility: [facility] Address: [address] [place] [address] Performed By: #### 2 4323-8 ####[facility]CL[facility] [id number] [place] [address] Urea nitrogen [Mass/Vol] 10 mg/dL Normal 7-21 [facility] Comment on above: Order Comment: Speci men Type: BLOOD SPECIMENOrdering Facility: [facility] Address: [address] [place] [address] Performed By: #### 2 4323-8 ####[facility]CL[facility] [id number] [place] Albumin [Mass/Vol] 4.1 g/dL 3.9 - 4.9 g/dL [facility] ALP [Catalytic activity/Vol] 78 U/L 34 - 123 U/L [facility] ALT [Catalytic activity/Vol] 31 U/L 7 - 38 U/L [facility] Anion gap [Moles/Vol] 10 mmol/L 9 - 18 mmol/L [facility] AST [Catalytic activity/Vol] 35 U/L 13 - 35 U/L [facility] Bilirubin [Mass/Vol] 0.2 mg/dL 0.2 - 1 .3 mg/dL [facility] Calcium [Mass/Vol] 9.7 mg/dL 8.5 - 10. 2 mg/dL [facility] Chloride [Moles/Vol] 107 mmol/L High 97 - 10 5 mmol/L [facility] CO2 [Moles/Vol] 26 mmol/L 22 - 30 mmol/L [facility] Creatinine [Mass/Vol] 0.84 mg/dL 0.58 - 0.96 mg/dL [facility] Estimated Glomerular Filtration Rate 78 mL/min/1.73m >=60 mL/min/1.73m [facility] Glucose [Mass/Vol] 150 mg/dL High 74 - 99 mg/dL [facility] Potassium [Moles/Vol] 4.4 mmol/L 3.7 - 5.1 mmol/L [facility] Protein [Mass/Vol] 7.1 g/dL 6.3 - 8.0 g/dL [facility] Sodium [Moles/Vol] 143 mmol/L 136 - 144 mmol/L [facility] Urea nitrogen [Mass/Vol] 10 mg/dL 7 - 21 mg/dL [facility] CNPNon 10-18-2023 CNPN Normal [facility] 10-16-2023 [facility] Consultation Noteon 10-16-19 24 Consultation Note [id number] F Normal [facility] CBC W Auto Differential pane l (Bld)on 10-10-2023 Basophils (Bld) [#/Vol] 0.03 10*3/uL Normal <0.11 [facility] Comment on above: Order Comment: Speci men Type: BLOOD SPECIMENOrdering Facility: [facility] Address: [address] [place], [place] [address] Performed By: #### 5 7021-8 ####[facility] LABCLIA [id number] [place] [address] Basophils/100 WBC (Bld) 0.6 % Normal [facility] Comment on above: Order Comment: Speci men Type: BLOOD SPECIMENOrdering Facility: [facility] Address: [address] [place] [address] Performed By: #### 5 7021-8 ####[facility] LABCLIA [id number] [place] [address] Differential cell count method Nom (Bld) Auto Normal [facility] Comment on above: Order Comment: Speci men Type: BLOOD SPECIMENOrdering Facility: [facility] Address: [address] [place] [address] Performed By: #### 5 7021-8 ####[facility] LABCLIA [id number] [place] [address] Eosinophils (Bld) [#/Vol] 0.13 10*3/uL Normal <0.46 [facility] Comment on above: Order Comment: Speci men Type: BLOOD SPECIMENOrdering Facility: [facility] Address: [address] [place] [address] Performed By: #### 5 7021-8 ####[facility] LABCLIA [id number] [place] [address] Eosinophils/100 WBC (Bld) 2.5 % Normal [facility] Comment on above: Order Comment: Speci men Type: BLOOD SPECIMENOrdering Facility: [facility] Address: [address] [place] [address] Performed By: #### 5 7021-8 ####[facility] LABCLIA [id number] [place] [address] Erythrocyte distribution width (RBC) [Ratio] 15.0 % Normal 11.5-15.0 [facility] Comment on above: Order Comment: Speci men Type: BLOOD SPECIMENOrdering Facility: [facility] Address: [address] [place] [address] Performed By: #### 5 7021-8 ####[facility] LABCLIA [id number] [place] [address] Hematocrit (Bld) [Volume fraction] 37.5 % Normal 36.0-46.0 [facility] Comment on above: Order Comment: Speci men Type: BLOOD SPECIMENOrdering Facility: [facility] Address: [address] [place] [address] Performed By: #### 5 7021-8 ####[facility] LABCLIA [id number] [place] [address] Hemoglobin (Bld) [Mass/Vol] 12.5 g/dL Normal 11.5-15.5 [facility] Comment on above: Order Comment: Speci men Type: BLOOD SPECIMENOrdering Facility: [facility] Address: [address] [place] [address] Performed By: #### 5 7021-8 ####[facility] LABCLIA [id number] [place] [address] Immature granulocytes (Bld) [#/Vol] 10*3/uL Normal <0.10 [facility] Comment on above: Order Comment: Speci men Type: BLOOD SPECIMENOrdering Facility: [facility] Address: [address] [place] [address] Performed By: #### 5 7021-8 ####[facility] LABCLIA [id number] [place] [address] Immature granulocytes/100 WBC (Bld) 0.4 % Normal [facility] Comment on above: Order Comment: Speci men Type: BLOOD SPECIMENOrdering Facility: [facility] Address: [address] [place] [address] Performed By: #### 5 7021-8 ####[facility] LABCLIA [id number] [place] [address] Lymphocytes (Bld) [#/Vol] 1.77 10*3/uL Normal 1.00-4.00 [facility] Comment on above: Order Comment: Speci men Type: BLOOD SPECIMENOrdering Facility: [facility] Address: [address] [place] [address] Performed By: #### 5 7021-8 ####[facility] LABCLIA [id number] [place] [address] Lymphocytes/100 WBC (Bld) 34.2 % Normal [facility] Comment on above: Order Comment: Speci men Type: BLOOD SPECIMENOrdering Facility: [facility] Address: [address] [place] [address] Performed By: #### 5 7021-8 ####[facility] LABCLIA [id number] [place] [address] MCH (RBC) [Entitic mass] 28.8 pg Normal 26.0-34.0 [facility] Comment on above: Order Comment: Speci men Type: BLOOD SPECIMENOrdering Facility: [facility] Address: [address] [place] [address] Performed By: #### 5 7021-8 ####[facility] LABCLIA [id number] [place] [address] MCHC (RBC) [Mass/Vol] 33.3 g/dL Normal 30.5-36.0 [facility] Comment on above: Order Comment: Speci men Type: BLOOD SPECIMENOrdering Facility: [facility] Address: [address] [place] [address] Performed By: #### 5 7021-8 ####[facility] LABIA [id number] [place] [address] MCV (RBC) [Entitic vol] 86.4 fL Normal 80.0-100.0 [facility] Comment on above: Order Comment: Speci men Type: BLOOD SPECIMENOrdering Facility: [facility] Address: [address] [place] [address] Performed By: #### 5 7021-8 ####[facility] LABCLIA [id number] [place] [address] Monocytes (Bld) [#/Vol] 0.37 10*3/uL Normal <0.87 [facility] Comment on above: Order Comment: Speci men Type: BLOOD SPECIMENOrdering Facility: [facility] Address: [address] [place] [address] Performed By: #### 5 7021-8 ####[facility] LABCLIA [id number] [place] [address] Monocytes/100 WBC (Bld) 7.2 % Normal [facility] Comment on above: Order Comment: Speci men Type: BLOOD SPECIMENOrdering Facility: [facility] Address: [address] [place] [address] Performed By: #### 5 7021-8 ####[facility] LABCLIA [id number] [place] [address] Neutrophils (Bld) [#/Vol] 2.85 10*3/uL Normal 1.45-7.50 [facility] Comment on above: Order Comment: Speci men Type: BLOOD SPECIMENOrdering Facility: [facility] Address: [address] [place] [address] Performed By: #### 5 7021-8 ####[facility] LABCLIA [id number] [place] [address] Neutrophils/100 WBC (Bld) 55.1 % Normal [facility] Comment on above: Order Comment: Speci men Type: BLOOD SPECIMENOrdering Facility: [facility] Address: [address] [place] [address] Performed By: #### 5 7021-8 ####[facility] LABIA [id number] [place] [address] Nucleated RBC (Bld) [#/Vol] 10*3/uL Normal <0.01 [facility] Comment on above: Order Comment: Speci men Type: BLOOD SPECIMENOrdering Facility: [facility] Address: [address] [place] [address] Performed By: #### 5 7021-8 ####[facility] LABCLIA [id number] [place] [address] Nucleated RBC/100 WBC (Bld) [Ratio] 0.0 /100 WBC Normal [facility] Comment on above: Order Comment: Speci men Type: BLOOD SPECIMENOrdering Facility: [facility] Address: [address] [place] [address] Performed By: #### 5 7021-8 ####[facility] LABIA [id number] [place] [address] Platelet mean volume (Bld) [Entitic vol] 10.8 fL Normal 9.0-12.7 [facility] Comment on above: Order Comment: Speci men Type: BLOOD SPECIMENOrdering Facility: [facility] Address: [address] [place] [address] Performed By: #### 5 7021-8 ####[facility] LABIA [id number] [place] [address] Platelets (Bld) [#/Vol] 118 10*3/uL Low 150-400 [facility] Comment on above: Order Comment: Speci men Type: BLOOD SPECIMENOrdering Facility: [facility] Address: [address] [place] [address] Result Comment: Resu lts checked and verified.No clot detected. Performed By: #### 5 7021-8 ####[facility] LABIA [id number] [place] [address] RBC (Bld) [#/Vol] 4.34 10*6/uL Normal 3.90-5.20 [facility] Comment on above: Order Comment: Speci men Type: BLOOD SPECIMENOrdering Facility: [facility] Address: [address] [place] [address] Performed By: #### 5 7021-8 ####[facility] LABCLIA [id number] [place] [address] WBC (Bld) [#/Vol] 5.17 10*3/uL Normal 3.70-11.00 [facility] Comment on above: Order Comment: Speci men Type: BLOOD SPECIMENOrdering Facility: [facility] Address: [address] [place] [address] Performed By: #### 5 7021-8 ####[facility] LABCLIA [id number] [place] [address] CNCNPATEDon 10-10-2023 CNCNPATED Normal [facility] CNOVSPon 10-10-2023 CNOVSP Normal [facility] Comprehensive metabolic 2000 panelon 10-10-2023 Albumin [Mass/Vol] 4.2 g/dL Normal 3.9-4.9 [facility] Comment on above: Order Comment: Speci men Type: BLOOD SPECIMENOrdering Facility: [facility] Address: [address] [place] [address] Performed By: #### 2 4323-8 ####[facility] LABCLIA [id number] [place] [address] ALP [Catalytic activity/Vol] 73 U/L Normal 34-123 [facility] Comment on above: Order Comment: Speci men Type: BLOOD SPECIMENOrdering Facility: [facility] Address: [address] [place] [address] Performed By: #### 2 4323-8 ####[facility] LABCLIA [id number] [place] [address] ALT [Catalytic activity/Vol] 49 U/L High 7-38 [facility] Comment on above: Order Comment: Speci men Type: BLOOD SPECIMENOrdering Facility: [facility] Address: [address] [place] [address] Performed By: #### 2 4323-8 ####[facility] LABCLIA [id number] [place] [address] Anion gap [Moles/Vol] 10 mmol/L Normal 9-18 [facility] Comment on above: Order Comment: Speci men Type: BLOOD SPECIMENOrdering Facility: [facility] Address: [address] [place] [address] Performed By: #### 2 4323-8 ####[facility] LABCLIA [id number] [place] [address] AST [Catalytic activity/Vol] 60 U/L High 13-35 [facility] Comment on above: Order Comment: Speci men Type: BLOOD SPECIMENOrdering Facility: [facility] Address: [address] [place] [address] Performed By: #### 2 4323-8 ####[facility] LABCLIA [id number] [place] [address] Bilirubin [Mass/Vol] 0.4 mg/dL Normal 0.2-1.3 [facility] Comment on above: Order Comment: Speci men Type: BLOOD SPECIMENOrdering Facility: [facility] Address: [address] [place] [address] Performed By: #### 2 4323-8 ####[facility] LABCLIA [id number] [place] [address] Calcium [Mass/Vol] 9.6 mg/dL Normal 8.5-10.2 [facility] Comment on above: Order Comment: Speci men Type: BLOOD SPECIMENOrdering Facility: [facility] Address: [address] [place] [address] Performed By: #### 2 4323-8 ####[facility] LABCLIA [id number] [place] [address] Chloride [Moles/Vol] 106 mmol/L High 97-105 [facility] Comment on above: Order Comment: Speci men Type: BLOOD SPECIMENOrdering Facility: [facility] Address: [address] [place] [address] Performed By: #### 2 4323-8 ####[facility] LABCLIA [id number] [place] [address] CO2 [Moles/Vol] 25 mmol/L Normal 22-30 [facility] Comment on above: Order Comment: Speci men Type: BLOOD SPECIMENOrdering Facility: [facility] Address: [address] [place] [address] Performed By: #### 2 4323-8 ####[facility] LABCLIA [id number] [place] [address] Creatinine [Mass/Vol] 0.85 mg/dL Normal 0.58-0.96 [facility] Comment on above: Order Comment: Speci men Type: BLOOD SPECIMENOrdering Facility: [facility] Address: [address] [place] [address] Performed By: #### 2 4323-8 ####[facility] LABIA [id number] [place] [address] Creatinine and Glomerular filtration rate.predicted panel (S/P/Bld) 77 mL/min/1.73m??? Normal >=60 [facility] Comment on above: Order Comment: Speci men Type: BLOOD SPECIMENOrdering Facility: [facility] Address: [address] [place] [address] Result Comment: Kelsey mated Glomerular Filtration Rate (eGFR) is calculated using the 2020 CKD-EPI creatinine equation. This equation utilizes serum creatinine, sex, and age as parameters. The creatinine assay has traceable calibration to isotope dilution-mass spectrometry. Refer to KDIGO guidelines for clinical interpretation. In patients with unstable renal function, e.g. those with acute kidney injury, the eGFR may not accurately reflect actual GFR. Performed By: #### 2 4323-8 ####[facility] LABCLIA [id number] [place] [address] Glucose [Mass/Vol] 140 mg/dL High 74-99 [facility] Comment on above: Order Comment: Speci men Type: BLOOD SPECIMENOrdering Facility: [facility] Address: [address] [place] [address] Result Comment: The [place] Diabetes Association (ADA) provides guidance for cutoff values for fasting glucose and random glucose. The ADA defines fasting as no caloric intake for at least 8 hours. Fasting plasma glucose results between 100 to 125 mg/dL indicate increased risk for diabetes (prediabetes).Fasting plasma glucose results greater than or equal to 126 mg/dL meet the criteria for diagnosis of diabetes. In the absence of unequivocal hyperglycemia, results should be confirmed by repeat testing. In a patient with classic symptoms of hyperglycemia or hyperglycemic crisis, random plasma glucose results greater than or equal to 200 mg/dL meet the criteria for diagnosis of diabetes.Reference: Standards of Medical Care in Diabetes 2016, [place] [employer] Association. Diabetes Care. 2016.39(Suppl 1). Performed By: #### 2 4323-8 ####[facility] LABCLIA [id number] [place] [address] Potassium [Moles/Vol] 4.0 mmol/L Normal 3.7-5.1 [facility] Comment on above: Order Comment: Speci men Type: BLOOD SPECIMENOrdering Facility: [facility] Address: [address] [place] [id number] Performed By: #### 2 4323-8 ####[facility] LABCLIA [id number] [place] [address] Protein [Mass/Vol] 6.8 g/dL Normal 6.3-8.0 [facility] Comment on above: Order Comment: Speci men Type: BLOOD SPECIMENOrdering Facility: [facility] Address: [address] [place] [address] Performed By: #### 2 4323-8 ####[facility] LABCLIA [id number] [place] [address] Sodium [Moles/Vol] 141 mmol/L Normal 136-144 [facility] Comment on above: Order Comment: Speci men Type: BLOOD SPECIMENOrdering Facility: [facility] Address: [address] [place] [address] Performed By: #### 2 4323-8 ####[facility] LABCLIA [id number] [place] [address] Urea nitrogen [Mass/Vol] 16 mg/dL Normal 7-21 [facility] Comment on above: Order Comment: Speci men Type: BLOOD SPECIMENOrdering Facility: [facility] Address: [address] [place] [address] Performed By: #### 2 4323-8 ####[facility] LABCLIA [id number] [place] [address] Ferritin SerPl-ncon 2023 Ferritin [Mass/Vol] 112.0 ng/mL Normal 14.7-205.1 [facility] Comment on above: Order Comment: Speci men Type: BLOOD SPECIMENOrdering Facility: [facility] Address: [address] [place] [address] Performed By: #### 5 0190-8, 2132-05, 2275-12, 2284-04 ####[facility] LABCLIA [id number] [place] [address] [place] Folate SerPl-mCncon 10-10-19 24 Folate [Mass/Vol] ng/mL Normal >4.7 [facility] Comment on above: Order Comment: Speci men Type: BLOOD SPECIMENOrdering Facility: [facility] Address: [address] [place] [address] Result Comment: A re sult of > 20 ng/mL is not necessarily indicative of a pathologic or treatable condition: it reflects a limitation of the test methodology.Assay reference range: 4.8 to 24.2 ng/mL. Suitable for detection of folate deficiency.Reference:Folate III (Folate III) [package insert V 1.0 [place]ian]. [facility], [place], [place]: July 2015. Performed By: #### 5 0190-8, 9, 4, 8 ####[facility] LABCLIA [id number] [place] [id number] [place] Iron and Iron binding capaci ty panelon 10-10-2023 Iron [Mass/Vol] 83 ug/dL Normal 41-186 [facility] Comment on above: Order Comment: Speci men Type: BLOOD SPECIMENOrdering Facility: [facility] Address: [address] [place], [place] [address] Performed By: #### 5 0190-8, 2131-9, 2275-12, 2284-04 ####[facility] LABCLIA [id number] [place] [address] [place] Iron binding capacity [Mass/Vol] 359 ug/dL Normal 232-386 [facility] Comment on above: Order Comment: Speci men Type: BLOOD SPECIMENOrdering Facility: [facility] Address: [address] [place] [address] Performed By: #### 5 0190-8, 9, 2275-12, 2284-04 ####[facility] LABCLIA [id number] [place] [address] [place] Iron/TIBC [Molar ratio] 23.1 % Normal 15.0-57.0 [facility] Comment on above: Order Comment: Speci men Type: BLOOD SPECIMENOrdering Facility: [facility] Address: [address] [place] [address] Performed By: #### 5 0190-8, 9, 2275-12, 2284-04 ####[facility] LABCLIA [id number] [place] [id number] [place] Vit B12 SerPl-mCncon 024 Cobalamin (Vitamin B12) [Mass/Vol] 410 pg/mL Normal 232-1245 [facility] Comment on above: Order Comment: Speci men Type: BLOOD SPECIMENOrdering Facility: [facility] Address: [address] [place] [address] Performed By: #### 5 0190-8, 2131-9, 2275-12, 2284-04 ####[facility] LABCLIA [id number] [place] [id number] [id number] [place] CBC W Auto Differential pane l (Bld)on 09-26-2023 Basophils (Bld) [#/Vol] 10*3/uL Normal <0.11 [facility] Comment on above: Order Comment: Speci men Type: BLOOD SPECIMENOrdering Facility: [facility] Address: [address] [place] [address] Performed By: #### 5 7021-8 ####[facility] LABCLIA [id number] [place] [address] Basophils/100 WBC (Bld) 0.7 % Normal [facility] Comment on above: Order Comment: Speci men Type: BLOOD SPECIMENOrdering Facility: [facility] Address: [address] [place] [address] Performed By: #### 5 7021-8 ####[facility] LABCLIA [id number] [place] [address] Differential cell count method Nom (Bld) Auto Normal [facility] Comment on above: Order Comment: Speci men Type: BLOOD SPECIMENOrdering Facility: [facility] Address: [address] [place] [address] Performed By: #### 5 7021-8 ####[facility] LABCLIA [id number] [place] [address] Eosinophils (Bld) [#/Vol] 0.13 10*3/uL Normal <0.46 [facility] Comment on above: Order Comment: Speci men Type: BLOOD SPECIMENOrdering Facility: [facility] Address: [address] [place] [address] Performed By: #### 5 7021-8 ####[facility] LABCLIA [id number] [place] [address] Eosinophils/100 WBC (Bld) 4.3 % Normal [facility] Comment on above: Order Comment: Speci men Type: BLOOD SPECIMENOrdering Facility: [facility] Address: [address] [place] [address] Performed By: #### 5 7021-8 ####[facility] LABCLIA [id number] [place] [address] Erythrocyte distribution width (RBC) [Ratio] 14.5 % Normal 11.5-15.0 [facility] Comment on above: Order Comment: Speci men Type: BLOOD SPECIMENOrdering Facility: [facility] Address: [address] [place] [address] Performed By: #### 5 7021-8 ####[facility] LABCLIA [id number] [place] [address] Hematocrit (Bld) [Volume fraction] 34.8 % Low 36.0-46.0 [facility] Comment on above: Order Comment: Speci men Type: BLOOD SPECIMENOrdering Facility: [facility] Address: [address] [place] [address] Performed By: #### 5 7021-8 ####[facility] LABCLIA [id number] [place] [address] Hemoglobin (Bld) [Mass/Vol] 11.0 g/dL Low 11.5-15.5 [facility] Comment on above: Order Comment: Speci men Type: BLOOD SPECIMENOrdering Facility: [facility] Address: [address] [place] [address] Performed By: #### 5 7021-8 ####[facility] LABCLIA [id number] [place] [address] Immature granulocytes (Bld) [#/Vol] 10*3/uL Normal <0.10 [facility] Comment on above: Order Comment: Speci men Type: BLOOD SPECIMENOrdering Facility: [facility] Address: [address] [place] [address] Performed By: #### 5 7021-8 ####[facility] LABCLIA [id number] [place] [address] Immature granulocytes/100 WBC (Bld) 0.3 % Normal [facility] Comment on above: Order Comment: Speci men Type: BLOOD SPECIMENOrdering Facility: [facility] Address: [address] [place] [address] Performed By: #### 5 7021-8 ####[facility] LABCLIA [id number] [place] [address] Lymphocytes (Bld) [#/Vol] 1.05 10*3/uL Normal 1.00-4.00 [facility] Comment on above: Order Comment: Speci men Type: BLOOD SPECIMENOrdering Facility: [facility] Address: [address] [place] [address] Performed By: #### 5 7021-8 ####[facility] LABCLIA [id number] [place] [address] Lymphocytes/100 WBC (Bld) 35.1 % Normal [facility] Comment on above: Order Comment: Speci men Type: BLOOD SPECIMENOrdering Facility: [facility] Address: [address] [place] [address] Performed By: #### 5 7021-8 ####[facility] LABCLIA [id number] [place] [address] MCH (RBC) [Entitic mass] 27.4 pg Normal 26.0-34.0 [facility] Comment on above: Order Comment: Speci men Type: BLOOD SPECIMENOrdering Facility: [facility] Address: [address] [place] [address] Performed By: #### 5 7021-8 ####[facility] LABCLIA [id number] [place] [address] MCHC (RBC) [Mass/Vol] 31.6 g/dL Normal 30.5-36.0 [facility] Comment on above: Order Comment: Speci men Type: BLOOD SPECIMENOrdering Facility: [facility] Address: [address] [place] [address] Performed By: #### 5 7021-8 ####[facility] LABCLIA [id number] [place] [address] MCV (RBC) [Entitic vol] 86.6 fL Normal 80.0-100.0 [facility] Comment on above: Order Comment: Speci men Type: BLOOD SPECIMENOrdering Facility: [facility] Address: [address] [place] [address] Performed By: #### 5 7021-8 ####[facility] LABCLIA [id number] [place] [address] Monocytes (Bld) [#/Vol] 0.37 10*3/uL Normal <0.87 [facility] Comment on above: Order Comment: Speci men Type: BLOOD SPECIMENOrdering Facility: [facility] Address: [address] [place] [address] Performed By: #### 5 7021-8 ####[facility] LABCLIA [id number] [place] [address] Monocytes/100 WBC (Bld) 12.4 % Normal [facility] Comment on above: Order Comment: Speci men Type: BLOOD SPECIMENOrdering Facility: [facility] Address: [address] [place] [address] Performed By: #### 5 7021-8 ####[facility] LABCLIA [id number] [place] [address] Neutrophils (Bld) [#/Vol] 1.41 10*3/uL Low 1.45-7.50 [facility] Comment on above: Order Comment: Speci men Type: BLOOD SPECIMENOrdering Facility: [facility] Address: [address] [place] [address] Performed By: #### 5 7021-8 ####[facility] LABCLIA [id number] [place] [address] Neutrophils/100 WBC (Bld) 47.2 % Normal [facility] Comment on above: Order Comment: Speci men Type: BLOOD SPECIMENOrdering Facility: [facility] Address: [facility] [place] [address] Performed By: #### 5 7021-8 ####[facility] LABCLIA [id number] [place] [address] Nucleated RBC (Bld) [#/Vol] 10*3/uL Normal <0.01 [facility] Comment on above: Order Comment: Speci men Type: BLOOD SPECIMENOrdering Facility: [facility] Address: [address] [place] [address] Performed By: #### 5 7021-8 ####[facility] LABCLIA [id number] [place] [address] Nucleated RBC/100 WBC (Bld) [Ratio] 0.0 /100 WBC Normal [facility] Comment on above: Order Comment: Speci men Type: BLOOD SPECIMENOrdering Facility: [facility] Address: [address] [place] [address] Performed By: #### 5 7021-8 ####[facility] LABCLIA [id number] [place] [address] Platelet mean volume (Bld) [Entitic vol] 10.3 fL Normal 9.0-12.7 [facility] Comment on above: Order Comment: Speci men Type: BLOOD SPECIMENOrdering Facility: [facility] Address: [address] [place] [address] Performed By: #### 5 7021-8 ####[facility] LABCLIA [id number] [place] [address] Platelets (Bld) [#/Vol] 89 10*3/uL Low 150-400 [facility] Comment on above: Order Comment: Speci men Type: BLOOD SPECIMENOrdering Facility: [facility] Address: [address] [place] [address] Result Comment: No c lot detected. Performed By: #### 5 7021-8 ####[facility] LABCLIA [id number] [place] [address] RBC (Bld) [#/Vol] 4.02 10*6/uL Normal 3.90-5.20 [facility] Comment on above: Order Comment: Speci men Type: BLOOD SPECIMENOrdering Facility: [facility] Address: [address] [place] [address] Performed By: #### 5 7021-8 ####[facility] LABCLIA [id number] [place] [id number] WBC (Bld) [#/Vol] 2.99 10*3/uL Low 3.70-11.00 [facility] Comment on above: Order Comment: Speci men Type: BLOOD SPECIMENOrdering Facility: [facility] Address: [address] [place] [address] Performed By: #### 5 7021-8 ####[facility] LABCLIA [id number] [place] [id number] CEA SerPl-ncon 09-26-2023 Carcinoembryonic Ag [Mass/Vol] 1.4 ng/mL Normal <=2.9 [facility] Comment on above: Order Comment: Speci men Type: BLOOD SPECIMENOrdering Facility: [facility] Address: [address] [place] [address] Result Comment: Carc inoembryonic antigen test is used as an aid in monitoring response to treatment or recurrence in patients with established colorectal, breast, lung, prostatic, pancreatic, and ovarian carcinomas. Clinical correlation is required.The Carcinoembryonic antigen test was performed using the [employer] DXI paramagnetic particle chemiluminescent immunoassay method. Results obtained with different assay methods or kits cannot be used interchangeably. Performed By: #### 2 039-6 ####[facility] LABCLIA [id number] [facility] [id number] [place], [place] [id number] [place] CNCNPATEDon 09-26-2023 CNCNPATED Normal [facility] CNOVSPon 09-26-2023 CNOVSP Normal [facility] Comprehensive metabolic 2000 panelon 09-26-2023 Albumin [Mass/Vol] 3.9 g/dL Normal 3.9-4.9 [facility] [place] [facility] Comment on above: Order Comment: Speci men Type: BLOOD SPECIMENOrdering Facility: [facility] Address: [address] [place] [address] Performed By: #### 2 4323-8 ####[facility] LABCLIA [id number] [place] [address] ALP [Catalytic activity/Vol] 90 U/L Normal 34-123 [facility] Comment on above: Order Comment: Speci men Type: BLOOD SPECIMENOrdering Facility: [facility] Address: [address] [place] [address] Performed By: #### 2 4323-8 ####[facility] LABCLIA [id number] [place] [address] ALT [Catalytic activity/Vol] 41 U/L High 7-38 [facility] Comment on above: Order Comment: Speci men Type: BLOOD SPECIMENOrdering Facility: [facility] Address: [address] [place] [address] Performed By: #### 2 4323-8 ####[facility] LABCLIA [id number] [place] [address] Anion gap [Moles/Vol] 10 mmol/L Normal 9-18 [facility] Comment on above: Order Comment: Speci men Type: BLOOD SPECIMENOrdering Facility: [facility] Address: [address] [place] [address] Performed By: #### 2 4323-8 ####[facility] LABCLIA [id number] [place] [address] AST [Catalytic activity/Vol] 40 U/L High 13-35 [facility] Comment on above: Order Comment: Speci men Type: BLOOD SPECIMENOrdering Facility: [facility] Address: [address] [place] [address] Performed By: #### 2 4323-8 ####[facility] LABCLIA [id number] [place] [address] Bilirubin [Mass/Vol] 0.3 mg/dL Normal 0.2-1.3 [facility] Comment on above: Order Comment: Speci men Type: BLOOD SPECIMENOrdering Facility: [facility] Address: [address] [place] [address] Performed By: #### 2 4323-8 ####[facility] LABCLIA [id number] [place] [address] Calcium [Mass/Vol] 9.2 mg/dL Normal 8.5-10.2 [facility] [place] [facility] Comment on above: Order Comment: Speci men Type: BLOOD SPECIMENOrdering Facility: [facility] Address: [address] [place] [address] Performed By: #### 2 4323-8 ####[facility] LABCLIA [id number] [place] [address] Chloride [Moles/Vol] 108 mmol/L High 97-105 [facility] Comment on above: Order Comment: Speci men Type: BLOOD SPECIMENOrdering Facility: [facility] Address: [address] [place] [address] Performed By: #### 2 4323-8 ####[facility] LABCLIA [id number] [place] [address] CO2 [Moles/Vol] 27 mmol/L Normal 22-30 [facility] Comment on above: Order Comment: Speci men Type: BLOOD SPECIMENOrdering Facility: [facility] Address: [address] [place] [address] Performed By: #### 2 4323-8 ####[facility] LABCLIA [id number] [place] [address] Creatinine [Mass/Vol] 0.87 mg/dL Normal 0.58-0.96 [facility] Comment on above: Order Comment: Speci men Type: BLOOD SPECIMENOrdering Facility: [facility] Address: [address] [place] [address] Performed By: #### 2 4323-8 ####[facility] LABCLIA [id number] [place] [address] Creatinine and Glomerular filtration rate.predicted panel (S/P/Bld) 75 mL/min/1.73m??? Normal >=60 [facility] Comment on above: Order Comment: Speci brandy Type: BLOOD SPECIMENOrdering Facility: [facility] Address: [address] [place] [address] Result Comment: Kelsey mated Glomerular Filtration Rate (eGFR) is calculated using the 2020 CKD-EPI creatinine equation. This equation utilizes serum creatinine, sex, and age as parameters. The creatinine assay has traceable calibration to isotope dilution-mass spectrometry. Refer to KDIGO guidelines for clinical interpretation. In patients with unstable renal function, e.g. those with acute kidney injury, the eGFR may not accurately reflect actual GFR. Performed By: #### 2 4323-8 ####[facility] LABIA [id number] [place] [address] Glucose [Mass/Vol] 120 mg/dL High 74-99 [facility] [place] [facility] Comment on above: Order Comment: Speci brandy Type: BLOOD SPECIMENOrdering Facility: [facility] Address: [address] [place] [address] Result Comment: The [place] Diabetes [employer] (ADA) provides guidance for cutoff values for fasting glucose and random glucose. The ADA defines fasting as no caloric intake for at least 8 hours. Fasting plasma glucose results between 100 to 125 mg/dL indicate increased risk for diabetes (prediabetes).Fasting plasma glucose results greater than or equal to 126 mg/dL meet the criteria for diagnosis of diabetes. In the absence of unequivocal hyperglycemia, results should be confirmed by repeat testing. In a patient with classic symptoms of hyperglycemia or hyperglycemic crisis, random plasma glucose results greater than or equal to 200 mg/dL meet the criteria for diagnosis of diabetes.Reference: Standards of Medical Care in Diabetes 2016, [place] Diabetes Association. Diabetes Care. 2016.39(Suppl 1). Performed By: #### 2 4323-8 ####[facility] LABCLIA [id number] [place] [address] Potassium [Moles/Vol] 3.9 mmol/L Normal 3.7-5.1 [facility] Comment on above: Order Comment: Speci men Type: BLOOD SPECIMENOrdering Facility: [facility] Address: [address] [place] [address] Performed By: #### 2 4323-8 ####[facility] LABCLIA [id number] [place] [address] Protein [Mass/Vol] 6.4 g/dL Normal 6.3-8.0 [facility] Comment on above: Order Comment: Speci men Type: BLOOD SPECIMENOrdering Facility: [facility] Address: [address] [place] [address] Performed By: #### 2 4323-8 ####[facility] LABIA [id number] [place] [address] Sodium [Moles/Vol] 145 mmol/L High 136-144 [facility] [place] [facility] Comment on above: Order Comment: Speci men Type: BLOOD SPECIMENOrdering Facility: [facility] Address: [address] [place] [address] Performed By: #### 2 4323-8 ####[facility] LABIA [id number] [place] [address] Urea nitrogen [Mass/Vol] 11 mg/dL Normal 7-21 [facility] Comment on above: Order Comment: Speci men Type: BLOOD SPECIMENOrdering Facility: [facility] Address: [address] [place] [address] Performed By: #### 2 4323-8 ####[facility] LABIA [id number] [place] [address] Consultation Noteon 09-17-19 24 Consultation Note [id number]#[id number] F Normal [facility] CBC W Auto Differential pane l (Bld)on 09-12-2023 Basophils (Bld) [#/Vol] 10*3/uL Normal <0.11 [facility] Comment on above: Order Comment: Speci men Type: BLOOD SPECIMENOrdering Facility: [facility] Address: [address] [place] [address] Performed By: #### 5 7021-8 ####[facility] LABCLIA [id number] [place] [address] Basophils/100 WBC (Bld) 0.4 % Normal [facility] Comment on above: Order Comment: Speci men Type: BLOOD SPECIMENOrdering Facility: [facility] Address: [address] [place] [address] Performed By: #### 5 7021-8 ####[facility] LABCLIA [id number] [place] [address] Differential cell count method Nom (Bld) Auto Normal [facility] Comment on above: Order Comment: Speci men Type: BLOOD SPECIMENOrdering Facility: [facility] Address: [address] [place] [address] Performed By: #### 5 7021-8 ####[facility] LABCLIA [id number] [place] [address] Eosinophils (Bld) [#/Vol] 0.13 10*3/uL Normal <0.46 [facility] Comment on above: Order Comment: Speci men Type: BLOOD SPECIMENOrdering Facility: [facility] Address: [address] [place] [address] Performed By: #### 5 7021-8 ####[facility] LABCLIA [id number] [place] [address] Eosinophils/100 WBC (Bld) 4.7 % Normal [facility] Comment on above: Order Comment: Speci men Type: BLOOD SPECIMENOrdering Facility: [facility] Address: [address] [place] [address] Performed By: #### 5 7021-8 ####[facility] LABCLIA [id number] [place] [address] Erythrocyte distribution width (RBC) [Ratio] 14.3 % Normal 11.5-15.0 [facility] Comment on above: Order Comment: Speci men Type: BLOOD SPECIMENOrdering Facility: [facility] Address: [address] [place] [address] Performed By: #### 5 7021-8 ####[facility] LABCLIA [id number] [place] [address] Hematocrit (Bld) [Volume fraction] 33.3 % Low 36.0-46.0 [facility] Comment on above: Order Comment: Speci men Type: BLOOD SPECIMENOrdering Facility: [facility] Address: [address] [place] [address] Performed By: #### 5 7021-8 ####[facility] LABCLIA [id number] [place] [address] Hemoglobin (Bld) [Mass/Vol] 10.9 g/dL Low 11.5-15.5 [facility] Comment on above: Order Comment: Speci men Type: BLOOD SPECIMENOrdering Facility: [facility] Address: [address] [place] [address] Performed By: #### 5 7021-8 ####[facility] LABCLIA [id number] [place] [address] Immature granulocytes (Bld) [#/Vol] 10*3/uL Normal <0.10 [facility] Comment on above: Order Comment: Speci men Type: BLOOD SPECIMENOrdering Facility: [facility] Address: [address] [place] [address] Performed By: #### 5 7021-8 ####[facility] LABCLIA [id number] [place] [address] Immature granulocytes/100 WBC (Bld) 0.4 % Normal [facility] Comment on above: Order Comment: Speci men Type: BLOOD SPECIMENOrdering Facility: [facility] Address: [address] [place] [address] Performed By: #### 5 7021-8 ####[facility] LABCLIA [id number] [place] [address] Lymphocytes (Bld) [#/Vol] 0.90 10*3/uL Low 1.00-4.00 [facility] Comment on above: Order Comment: Speci men Type: BLOOD SPECIMENOrdering Facility: [facility] Address: [address] [place] [address] Performed By: #### 5 7021-8 ####[facility] LABCLIA [id number] [place] [address] Lymphocytes/100 WBC (Bld) 32.6 % Normal [facility] Comment on above: Order Comment: Speci men Type: BLOOD SPECIMENOrdering Facility: [facility] Address: [address] [place] [address] Performed By: #### 5 7021-8 ####[facility] LABCLIA [id number] [place] [address] MCH (RBC) [Entitic mass] 28.5 pg Normal 26.0-34.0 [facility] Comment on above: Order Comment: Speci men Type: BLOOD SPECIMENOrdering Facility: [facility] Address: [address] [place] [address] Performed By: #### 5 7021-8 ####[facility] LABCLIA [id number] [place] [address] MCHC (RBC) [Mass/Vol] 32.7 g/dL Normal 30.5-36.0 [facility] Comment on above: Order Comment: Speci men Type: BLOOD SPECIMENOrdering Facility: [facility] Address: [address] [place] [address] Performed By: #### 5 7021-8 ####[facility] LABCLIA [id number] [place] [address] MCV (RBC) [Entitic vol] 86.9 fL Normal 80.0-100.0 [facility] Comment on above: Order Comment: Speci men Type: BLOOD SPECIMENOrdering Facility: [facility] Address: [address] [place] [address] Performed By: #### 5 7021-8 ####[facility] LABCLIA [id number] [place] [address] Monocytes (Bld) [#/Vol] 0.25 10*3/uL Normal <0.87 [facility] Comment on above: Order Comment: Speci men Type: BLOOD SPECIMENOrdering Facility: [facility] Address: [address] [place] [address] Performed By: #### 5 7021-8 ####[facility] LABCLIA [id number] [place] [address] Monocytes/100 WBC (Bld) 9.1 % Normal [facility] Comment on above: Order Comment: Speci men Type: BLOOD SPECIMENOrdering Facility: [facility] Address: [address] [place] [address] Performed By: #### 5 7021-8 ####[facility] LABCLIA [id number] [place] [address] Neutrophils (Bld) [#/Vol] 1.46 10*3/uL Normal 1.45-7.50 [facility] Comment on above: Order Comment: Speci men Type: BLOOD SPECIMENOrdering Facility: [facility] Address: [address] [place] [address] Performed By: #### 5 7021-8 ####[facility] LABCLIA [id number] [place] [address] Neutrophils/100 WBC (Bld) 52.8 % Normal [facility] Comment on above: Order Comment: Speci men Type: BLOOD SPECIMENOrdering Facility: [facility] Address: [address] [place] [address] Performed By: #### 5 7021-8 ####[facility] LABCLIA [id number] [place] [address] Nucleated RBC (Bld) [#/Vol] 10*3/uL Normal <0.01 [facility] Comment on above: Order Comment: Speci men Type: BLOOD SPECIMENOrdering Facility: [facility] Address: [address] [place] [address] Performed By: #### 5 7021-8 ####[facility] LABCLIA [id number] [place] [address] Nucleated RBC/100 WBC (Bld) [Ratio] 0.0 /100 WBC Normal [facility] Comment on above: Order Comment: Speci men Type: BLOOD SPECIMENOrdering Facility: [facility] Address: [address] [place] [address] Performed By: #### 5 7021-8 ####[facility] LABCLIA [id number] [place] [address] Platelet mean volume (Bld) [Entitic vol] 10.4 fL Normal 9.0-12.7 [facility] Comment on above: Order Comment: Speci men Type: BLOOD SPECIMENOrdering Facility: [facility] Address: [address] [place] [address] Performed By: #### 5 7021-8 ####[facility] LABCL[facility] [id number] [place] [address] Platelets (Bld) [#/Vol] 110 10*3/uL Low 150-400 [facility] Comment on above: Order Comment: Speci men Type: BLOOD SPECIMENOrdering Facility: [facility] Address: [address] [place] [address] Performed By: #### 5 7021-8 ####[facility] LABCLIA [id number] [place] [address] RBC (Bld) [#/Vol] 3.83 10*6/uL Low 3.90-5.20 [facility] Comment on above: Order Comment: Speci men Type: BLOOD SPECIMENOrdering Facility: [facility] Address: [address] [place] [address] Performed By: #### 5 7021-8 ####[facility] LABCLIA [id number] [place] [address] WBC (Bld) [#/Vol] 2.76 10*3/uL Low 3.70-11.00 [facility] Comment on above: Order Comment: Speci men Type: BLOOD SPECIMENOrdering Facility: [facility] Address: [address] [place] [address] Performed By: #### 5 7021-8 ####[facility] LABCLIA [id number] [place] [address] CNOVSPon 09-12-2023 CNOVSP Normal [facility] metabolic 2000 panelon 09-12-2023 Albumin [Mass/Vol] 3.9 g/dL Normal 3.9-4.9 [facility] Comment on above: Order Comment: Speci men Type: BLOOD SPECIMENOrdering Facility: [facility] Address: [address] [place] [address] Performed By: #### 2 4323-8 ####[facility] LABCLIA [id number] [place] [address] ALP [Catalytic activity/Vol] 105 U/L Normal 34-123 [facility] Comment on above: Order Comment: Speci men Type: BLOOD SPECIMENOrdering Facility: [facility] Address: [address] [place] [address] Performed By: #### 2 4323-8 ####[facility] LABCLIA [id number] [place] [address] ALT [Catalytic activity/Vol] 105 U/L High 7-38 [facility] Comment on above: Order Comment: Speci men Type: BLOOD SPECIMENOrdering Facility: [facility] Address: [address] [place] [address] Performed By: #### 2 4323-8 ####[facility] LABCLIA [id number] [place] [address] Anion gap [Moles/Vol] 10 mmol/L Normal 9-18 [facility] Comment on above: Order Comment: Speci men Type: BLOOD SPECIMENOrdering Facility: [facility] Address: [address] [place] [address] Performed By: #### 2 4323-8 ####[facility] LABCLIA [id number] [place] [address] AST [Catalytic activity/Vol] 121 U/L High 13-35 [facility] Comment on above: Order Comment: Speci men Type: BLOOD SPECIMENOrdering Facility: [facility] Address: [address] [place] [address] Performed By: #### 2 4323-8 ####[facility] LABCLIA [id number] [place] [address] Bilirubin [Mass/Vol] 0.4 mg/dL Normal 0.2-1.3 [facility] Comment on above: Order Comment: Speci men Type: BLOOD SPECIMENOrdering Facility: [facility] Address: [address] [place] [address] Performed By: #### 2 4323-8 ####[facility] LABCLIA [id number] [place] [address] Calcium [Mass/Vol] 9.0 mg/dL Normal 8.5-10.2 [facility] Comment on above: Order Comment: Speci men Type: BLOOD SPECIMENOrdering Facility: [facility] Address: [address] [place] [address] Performed By: #### 2 4323-8 ####[facility] LABCLIA [id number] [place] [address] Chloride [Moles/Vol] 106 mmol/L High 97-105 [facility] Comment on above: Order Comment: Speci men Type: BLOOD SPECIMENOrdering Facility: [facility] Address: [address] [place] [address] Performed By: #### 2 4323-8 ####[facility] LABCLIA [id number] [place] [address] CO2 [Moles/Vol] 28 mmol/L Normal 22-30 [facility] Comment on above: Order Comment: Speci men Type: BLOOD SPECIMENOrdering Facility: [facility] Address: [address] [place] [address] Performed By: #### 2 4323-8 ####[facility] LABCLIA [id number] [place] [address] Creatinine [Mass/Vol] 0.85 mg/dL Normal 0.58-0.96 [facility] Comment on above: Order Comment: Speci men Type: BLOOD SPECIMENOrdering Facility: [facility] Address: [address] [place] [address] Performed By: #### 2 4323-8 ####[facility] LABCLIA [id number] [place] [address] Creatinine and Glomerular filtration rate.predicted panel (S/P/Bld) 77 mL/min/1.73m??? Normal >=60 [facility] Comment on above: Order Comment: Speci men Type: BLOOD SPECIMENOrdering Facility: [facility] Address: [address] [place] [address] Result Comment: Kelsey mated Glomerular Filtration Rate (eGFR) is calculated using the 2020 CKD-EPI creatinine equation. This equation utilizes serum creatinine, sex, and age as parameters. The creatinine assay has traceable calibration to isotope dilution-mass spectrometry. Refer to KDIGO guidelines for clinical interpretation. In patients with unstable renal function, e.g. those with acute kidney injury, the eGFR may not accurately reflect actual GFR. Performed By: #### 2 4323-8 ####[facility] LABIA [id number] [place] [address] Glucose [Mass/Vol] 152 mg/dL High 74-99 [facility] [place] [facility] Comment on above: Order Comment: Speci men Type: BLOOD SPECIMENOrdering Facility: [facility] Address: [address] [place] [address] Result Comment: The [place] Diabetes Association (ADA) provides guidance for cutoff values for fasting glucose and random glucose. The ADA defines fasting as no caloric intake for at least 8 hours. Fasting plasma glucose results between 100 to 125 mg/dL indicate increased risk for diabetes (prediabetes).Fasting plasma glucose results greater than or equal to 126 mg/dL meet the criteria for diagnosis of diabetes. In the absence of unequivocal hyperglycemia, results should be confirmed by repeat testing. In a patient with classic symptoms of hyperglycemia or hyperglycemic crisis, random plasma glucose results greater than or equal to 200 mg/dL meet the criteria for diagnosis of diabetes.Reference: Standards of Medical Care in Diabetes 2016, [place] Diabetes Association. Diabetes Care. 2016.39(Suppl 1). Performed By: #### 2 4323-8 ####[facility] LABCLIA [id number] [place] [address] Potassium [Moles/Vol] 3.8 mmol/L Normal 3.7-5.1 [facility] Comment on above: Order Comment: Speci men Type: BLOOD SPECIMENOrdering Facility: [facility] Address: [address] [place] [address] Performed By: #### 2 4323-8 ####[facility] LABIA [id number] [place] [address] Protein [Mass/Vol] 6.2 g/dL Low 6.3-8.0 [facility] [place] [facility] Comment on above: Order Comment: Speci men Type: BLOOD SPECIMENOrdering Facility: [facility] Address: [address] [place] [address] Performed By: #### 2 4323-8 ####[facility] LABCLIA [id number] [place] [address] Sodium [Moles/Vol] 144 mmol/L Normal 136-144 [facility] Comment on above: Order Comment: Speci men Type: BLOOD SPECIMENOrdering Facility: [facility] Address: [address] [place] [address] Performed By: #### 2 4323-8 ####[facility] LABCLIA [id number] [place] [address] Urea nitrogen [Mass/Vol] 11 mg/dL Normal 7-21 [facility] Comment on above: Order Comment: Speci men Type: BLOOD SPECIMENOrdering Facility: [facility] Address: [address] [place] [address] Performed By: #### 2 4323-8 ####[facility] LABCLIA [id number] [place] [address] Consultation Noteon 09-11-19 Consultation Note [id number]#1.00TIF F Normal [facility] CBC W Auto Differential pane l (Bld)on 09-07-2023 Basophils (Bld) [#/Vol] 10*3/uL Normal <0.11 [facility] Comment on above: Order Comment: Speci men Type: BLOOD SPECIMENOrdering Facility: [facility] Address: [address] [place] [address] Performed By: #### 5 7021-8 ####[facility] LABCLIA [id number] [place] [address] Basophils/100 WBC (Bld) 0.3 % Normal [facility] Comment on above: Order Comment: Speci men Type: BLOOD SPECIMENOrdering Facility: [facility] Address: [address] [place] [address] Performed By: #### 5 7021-8 ####[facility] LABCLIA [id number] [place] [address] Differential cell count method Nom (Bld) Auto Normal [facility] Comment on above: Order Comment: Speci men Type: BLOOD SPECIMENOrdering Facility: [facility] Address: [address] [place] [address] Performed By: #### 5 7021-8 ####[facility] LABCLIA [id number] [place] [address] Eosinophils (Bld) [#/Vol] 0.12 10*3/uL Normal <0.46 [facility] Comment on above: Order Comment: Speci men Type: BLOOD SPECIMENOrdering Facility: [facility] Address: [address] [place] [address] Performed By: #### 5 7021-8 ####[facility] LABCLIA [id number] [place] [address] Eosinophils/100 WBC (Bld) 3.5 % Normal [facility] Comment on above: Order Comment: Speci men Type: BLOOD SPECIMENOrdering Facility: [facility] Address: [address] [place] [address] Performed By: #### 5 7021-8 ####[facility] LABCLIA [id number] [place] [address] Erythrocyte distribution width (RBC) [Ratio] 14.2 % Normal 11.5-15.0 [facility] Comment on above: Order Comment: Speci men Type: BLOOD SPECIMENOrdering Facility: [facility] Address: [address] [place] [address] Performed By: #### 5 7021-8 ####[facility] LABCLIA [id number] [place] [address] Hematocrit (Bld) [Volume fraction] 35.1 % Low 36.0-46.0 [facility] Comment on above: Order Comment: Speci men Type: BLOOD SPECIMENOrdering Facility: [facility] Address: [address] [place] [address] Performed By: #### 5 7021-8 ####[facility] LABCLIA [id number] [place] [address] Hemoglobin (Bld) [Mass/Vol] 11.4 g/dL Low 11.5-15.5 [facility] Comment on above: Order Comment: Speci men Type: BLOOD SPECIMENOrdering Facility: [facility] Address: [address] [place] [address] Performed By: #### 5 7021-8 ####[facility] LABCLIA [id number] [place] [address] Immature granulocytes (Bld) [#/Vol] 10*3/uL Normal <0.10 [facility] Comment on above: Order Comment: Speci men Type: BLOOD SPECIMENOrdering Facility: [facility] Address: [address] [place] [address] Performed By: #### 5 7021-8 ####[facility] LABCLIA [id number] [place] [address] Immature granulocytes/100 WBC (Bld) 0.3 % Normal [facility] Comment on above: Order Comment: Speci men Type: BLOOD SPECIMENOrdering Facility: [facility] Address: [address] [place] [address] Performed By: #### 5 7021-8 ####[facility] LABCLIA [id number] [place] [address] Lymphocytes (Bld) [#/Vol] 0.96 10*3/uL Low 1.00-4.00 [facility] Comment on above: Order Comment: Speci men Type: BLOOD SPECIMENOrdering Facility: [facility] Address: [address] [place] [address] Performed By: #### 5 7021-8 ####[facility] LABCLIA [id number] [place] [address] Lymphocytes/100 WBC (Bld) 28.1 % Normal [facility] Comment on above: Order Comment: Speci men Type: BLOOD SPECIMENOrdering Facility: [facility] Address: [address] [place] [address] Performed By: #### 5 7021-8 ####[facility] LABCLIA [id number] [place] [address] MCH (RBC) [Entitic mass] 28.5 pg Normal 26.0-34.0 [facility] Comment on above: Order Comment: Speci men Type: BLOOD SPECIMENOrdering Facility: [facility] Address: [address] [place] [address] Performed By: #### 5 7021-8 ####[facility] LABCLIA [id number] [place] [address] MCHC (RBC) [Mass/Vol] 32.5 g/dL Normal 30.5-36.0 [facility] Comment on above: Order Comment: Speci men Type: BLOOD SPECIMENOrdering Facility: [facility] Address: [address] [place] [address] Performed By: #### 5 7021-8 ####[facility] LABCLIA [id number] [place] [address] MCV (RBC) [Entitic vol] 87.8 fL Normal 80.0-100.0 [facility] Comment on above: Order Comment: Speci men Type: BLOOD SPECIMENOrdering Facility: [facility] Address: [address] [place] [address] Performed By: #### 5 7021-8 ####[facility] LABCLIA [id number] [place] [address] Monocytes (Bld) [#/Vol] 0.29 10*3/uL Normal <0.87 [facility] Comment on above: Order Comment: Speci men Type: BLOOD SPECIMENOrdering Facility: [facility] Address: [address] [place] [address] Performed By: #### 5 7021-8 ####[facility] LABCLIA [id number] [place] [address] Monocytes/100 WBC (Bld) 8.5 % Normal [facility] Comment on above: Order Comment: Speci men Type: BLOOD SPECIMENOrdering Facility: [facility] Address: [address] [place] [address] Performed By: #### 5 7021-8 ####[facility] LABCLIA [id number] [place] [address] Neutrophils (Bld) [#/Vol] 2.03 10*3/uL Normal 1.45-7.50 [facility] Comment on above: Order Comment: Speci men Type: BLOOD SPECIMENOrdering Facility: [facility] Address: [address] [place] [address] Performed By: #### 5 7021-8 ####[facility] LABCLIA [id number] [place] [address] Neutrophils/100 WBC (Bld) 59.3 % Normal [facility] Comment on above: Order Comment: Speci men Type: BLOOD SPECIMENOrdering Facility: [facility] Address: [address] [place] [address] Performed By: #### 5 7021-8 ####[facility] LABCLIA [id number] [place] [address] Nucleated RBC (Bld) [#/Vol] 10*3/uL Normal <0.01 [facility] Comment on above: Order Comment: Speci men Type: BLOOD SPECIMENOrdering Facility: [facility] Address: [address] [place] [address] Performed By: #### 5 7021-8 ####[facility] LABCLIA [id number] [place] [address] Nucleated RBC/100 WBC (Bld) [Ratio] 0.0 /100 WBC Normal [facility] Comment on above: Order Comment: Speci men Type: BLOOD SPECIMENOrdering Facility: [facility] Address: [address] [place] [address] Performed By: #### 5 7021-8 ####[facility] LABCLIA [id number] [place] [address] Platelet mean volume (Bld) [Entitic vol] 10.2 fL Normal 9.0-12.7 [facility] Comment on above: Order Comment: Speci men Type: BLOOD SPECIMENOrdering Facility: [facility] Address: [address] [place] [address] Performed By: #### 5 7021-8 ####[facility] LABCLIA [id number] [place] [address] Platelets (Bld) [#/Vol] 121 10*3/uL Low 150-400 [facility] Comment on above: Order Comment: Speci men Type: BLOOD SPECIMENOrdering Facility: [facility] Address: [address] [place] [address] Performed By: #### 5 7021-8 ####[facility] LABCLIA [id number] [place] [address] RBC (Bld) [#/Vol] 4.00 10*6/uL Normal 3.90-5.20 [facility] Comment on above: Order Comment: Speci men Type: BLOOD SPECIMENOrdering Facility: [facility] Address: [address] [place] [address] Performed By: #### 5 7021-8 ####[facility] LABCLIA [id number] [place] [address] WBC (Bld) [#/Vol] 3.42 10*3/uL Low 3.70-11.00 [facility] Comment on above: Order Comment: Speci men Type: BLOOD SPECIMENOrdering Facility: [facility] Address: [address] [place] [address] Performed By: #### 5 7021-8 ####[facility] LABCLIA [id number] [place] [address] CNOVSPon 09-07-2023 CNOVSP Normal [facility] Comprehensive metabolic 2000 panelon 09-07-2023 Albumin [Mass/Vol] 4.0 g/dL Normal 3.9-4.9 [facility] [place] [facility] Comment on above: Order Comment: Speci men Type: BLOOD SPECIMENOrdering Facility: [facility] Address: [address] [place] [address] Performed By: #### 2 4323-8 ####[facility] LABCLIA [id number] [place] [address] ALP [Catalytic activity/Vol] 55 U/L Normal 34-123 [facility] Comment on above: Order Comment: Speci men Type: BLOOD SPECIMENOrdering Facility: [facility] Address: [address] [place] [address] Performed By: #### 2 4323-8 ####[facility] LABCLIA [id number] [place] [address] ALT [Catalytic activity/Vol] 32 U/L Normal 7-38 [facility] Comment on above: Order Comment: Speci men Type: BLOOD SPECIMENOrdering Facility: [facility] Address: [address] [place] [address] Performed By: #### 2 4323-8 ####[facility] LABCLIA [id number] [place] [address] Anion gap [Moles/Vol] 10 mmol/L Normal 9-18 [facility] Comment on above: Order Comment: Speci men Type: BLOOD SPECIMENOrdering Facility: [facility] Address: [address] [place] [address] Performed By: #### 2 4323-8 ####[facility] LABCLIA [id number] [place] [address] AST [Catalytic activity/Vol] 35 U/L Normal 13-35 [facility] Comment on above: Order Comment: Speci men Type: BLOOD SPECIMENOrdering Facility: [facility] Address: [address] [place] [address] Performed By: #### 2 4323-8 ####[facility] LABCLIA [id number] [place] [address] Bilirubin [Mass/Vol] 0.3 mg/dL Normal 0.2-1.3 [facility] Comment on above: Order Comment: Speci men Type: BLOOD SPECIMENOrdering Facility: [facility] Address: [address] [place] [address] Performed By: #### 2 4323-8 ####[facility] LABCLIA [id number] [place] [address] Calcium [Mass/Vol] 8.8 mg/dL Normal 8.5-10.2 [facility] Comment on above: Order Comment: Speci men Type: BLOOD SPECIMENOrdering Facility: [facility] Address: [address] [place] [address] Performed By: #### 2 4323-8 ####[facility] LABCLIA [id number] [place] [address] Chloride [Moles/Vol] 105 mmol/L Normal 97-105 [facility] Comment on above: Order Comment: Speci men Type: BLOOD SPECIMENOrdering Facility: [facility] Address: [address] [place] [address] Performed By: #### 2 4323-8 ####[facility] LABCLIA [id number] [place] [address] CO2 [Moles/Vol] 27 mmol/L Normal 22-30 [facility] Comment on above: Order Comment: Speci men Type: BLOOD SPECIMENOrdering Facility: [facility] Address: [address] [place] [address] Performed By: #### 2 4323-8 ####[facility] LABCLIA [id number] [place] [address] Creatinine [Mass/Vol] 0.95 mg/dL Normal 0.58-0.96 [facility] Comment on above: Order Comment: Speci men Type: BLOOD SPECIMENOrdering Facility: [facility] Address: [address] [place] [address] Performed By: #### 2 4323-8 ####[facility] LABCLIA [id number] [place] [address] Creatinine and Glomerular filtration rate.predicted panel (S/P/Bld) 67 mL/min/1.73m??? Normal >=60 [facility] Comment on above: Order Comment: Speci men Type: BLOOD SPECIMENOrdering Facility: [facility] Address: [address] [place] [address] Result Comment: Kelsey mated Glomerular Filtration Rate (eGFR) is calculated using the 2020 CKD-EPI creatinine equation. This equation utilizes serum creatinine, sex, and age as parameters. The creatinine assay has traceable calibration to isotope dilution-mass spectrometry. Refer to KDIGO guidelines for clinical interpretation. In patients with unstable renal function, e.g. those with acute kidney injury, the eGFR may not accurately reflect actual GFR. Performed By: #### 2 4323-8 ####[facility] LABCLIA [id number] [place] [address] Glucose [Mass/Vol] 103 mg/dL High 74-99 [facility] Comment on above: Order Comment: Speci men Type: BLOOD SPECIMENOrdering Facility: [facility] Address: [address] [place], [place] [address] Result Comment: The [place] Diabetes Association (ADA) provides guidance for cutoff values for fasting glucose and random glucose. The ADA defines fasting as no caloric intake for at least 8 hours. Fasting plasma glucose results between 100 to 125 mg/dL indicate increased risk for diabetes (prediabetes).Fasting plasma glucose results greater than or equal to 126 mg/dL meet the criteria for diagnosis of diabetes. In the absence of unequivocal hyperglycemia, results should be confirmed by repeat testing. In a patient with classic symptoms of hyperglycemia or hyperglycemic crisis, random plasma glucose results greater than or equal to 200 mg/dL meet the criteria for diagnosis of diabetes.Reference: Standards of Medical Care in Diabetes 2016, [place] [employer]. Diabetes Care. 2016.39(Suppl 1). Performed By: #### 2 4323-8 ####[facility] LABCLIA [id number] [place] [address] Potassium [Moles/Vol] 3.5 mmol/L Low 3.7-5.1 [facility] Comment on above: Order Comment: Speci men Type: BLOOD SPECIMENOrdering Facility: [facility] Address: [address] [place] [address] Performed By: #### 2 4323-8 ####[facility] LABCLIA [id number] [place] [address] Protein [Mass/Vol] 6.2 g/dL Low 6.3-8.0 [facility] Comment on above: Order Comment: Speci men Type: BLOOD SPECIMENOrdering Facility: [facility] Address: [address] [place] [address] Performed By: #### 2 4323-8 ####[facility] LABCLIA [id number] [place] [address] Sodium [Moles/Vol] 142 mmol/L Normal 136-144 [facility] Comment on above: Order Comment: Speci men Type: BLOOD SPECIMENOrdering Facility: [facility] Address: [address] [place] [address] Performed By: #### 2 4323-8 ####[facility] LABCLIA [id number] [place] [address] Urea nitrogen [Mass/Vol] 16 mg/dL Normal 7- [facility] Comment on above: Order Comment: Speci men Type: BLOOD SPECIMENOrdering Facility: [facility] Address: [address] [place] [address] Performed By: #### 2 4323-8 ####[facility] LABCLIA [id number] [place] [address] CNPNon 09-05-2023 CNPN Normal [facility] CNPNon 08-30-2023 CNPN Normal [facility] Consultation Noteon 08-30-20 Consultation Note [id number]#1.00TIF F Normal [facility] CBC W Auto Differential pane l (Bld)on 08-29-2023 Basophils (Bld) [#/Vol] 10*3/uL Normal <0.11 [facility] Comment on above: Order Comment: Speci men Type: BLOOD SPECIMENOrdering Facility: [facility] Address: [address] [place] [address] Performed By: #### 5 7021-8 ####[facility] LABCLIA [id number] [place] [address] Basophils/100 WBC (Bld) 0.4 % Normal [facility] Comment on above: Order Comment: Speci men Type: BLOOD SPECIMENOrdering Facility: [facility] Address: [address] [place] [address] Performed By: #### 5 7021-8 ####[facility] LABCLIA [id number] [place] [address] Differential cell count method Nom (Bld) Auto Normal [facility] Comment on above: Order Comment: Speci men Type: BLOOD SPECIMENOrdering Facility: [facility] Address: [address] [place] [address] Performed By: #### 5 7021-8 ####[facility] LABCLIA [id number] [place] [address] Eosinophils (Bld) [#/Vol] 0.19 10*3/uL Normal <0.46 [facility] Comment on above: Order Comment: Speci men Type: BLOOD SPECIMENOrdering Facility: [facility] Address: [address] [place] [address] Performed By: #### 5 7021-8 ####[facility] LABCLIA [id number] [place] [address] Eosinophils/100 WBC (Bld) 3.9 % Normal [facility] Comment on above: Order Comment: Speci men Type: BLOOD SPECIMENOrdering Facility: [facility] Address: [address] [place] [address] Performed By: #### 5 7021-8 ####[facility] LABCLIA [id number] [place] [address] Erythrocyte distribution width (RBC) [Ratio] 14.3 % Normal 11.5-15.0 [facility] Comment on above: Order Comment: Speci men Type: BLOOD SPECIMENOrdering Facility: [facility] Address: [address] [place] [address] Performed By: #### 5 7021-8 ####[facility] LABCLIA [id number] [place] [address] Hematocrit (Bld) [Volume fraction] 36.5 % Normal 36.0-46.0 [facility] Comment on above: Order Comment: Speci men Type: BLOOD SPECIMENOrdering Facility: [facility] Address: [address] [place] [address] Performed By: #### 5 7021-8 ####[facility] LABCLIA [id number] [place] [address] Hemoglobin (Bld) [Mass/Vol] 11.9 g/dL Normal 11.5-15.5 [facility] Comment on above: Order Comment: Speci men Type: BLOOD SPECIMENOrdering Facility: [facility] Address: [address] [place] [address] Performed By: #### 5 7021-8 ####[facility] LABIA [id number] [place] [address] Immature granulocytes (Bld) [#/Vol] 10*3/uL Normal <0.10 [facility] Comment on above: Order Comment: Speci men Type: BLOOD SPECIMENOrdering Facility: [facility] Address: [address] [place] [address] Performed By: #### 5 7021-8 ####[facility] LABCLIA [id number] [place] [address] Immature granulocytes/100 WBC (Bld) 0.2 % Normal [facility] Comment on above: Order Comment: Speci men Type: BLOOD SPECIMENOrdering Facility: [facility] Address: [address] [place] [address] Performed By: #### 5 7021-8 ####[facility] LABIA [id number] [place] [address] Lymphocytes (Bld) [#/Vol] 1.78 10*3/uL Normal 1.00-4.00 [facility] Comment on above: Order Comment: Speci men Type: BLOOD SPECIMENOrdering Facility: [facility] Address: [address] [place] [address] Performed By: #### 5 7021-8 ####[facility] LABCLIA [id number] [place] [address] Lymphocytes/100 WBC (Bld) 36.2 % Normal [facility] Comment on above: Order Comment: Speci men Type: BLOOD SPECIMENOrdering Facility: [facility] Address: [address] [place] [address] Performed By: #### 5 7021-8 ####[facility] LABCLIA [id number] [place] [address] MCH (RBC) [Entitic mass] 28.3 pg Normal 26.0-34.0 [facility] Comment on above: Order Comment: Speci men Type: BLOOD SPECIMENOrdering Facility: [facility] Address: [address] [place] [address] Performed By: #### 5 7021-8 ####[facility] LABCLIA [id number] [place] [address] MCHC (RBC) [Mass/Vol] 32.6 g/dL Normal 30.5-36.0 [facility] Comment on above: Order Comment: Speci men Type: BLOOD SPECIMENOrdering Facility: [facility] Address: [address] [place] [address] Performed By: #### 5 7021-8 ####[facility] LABCLIA [id number] [place] [address] MCV (RBC) [Entitic vol] 86.7 fL Normal 80.0-100.0 [facility] Comment on above: Order Comment: Speci men Type: BLOOD SPECIMENOrdering Facility: [facility] Address: [address] [place] [address] Performed By: #### 5 7021-8 ####[facility] LABCLIA [id number] [place] [address] Monocytes (Bld) [#/Vol] 0.29 10*3/uL Normal <0.87 [facility] Comment on above: Order Comment: Speci men Type: BLOOD SPECIMENOrdering Facility: [facility] Address: [address] [place] [address] Performed By: #### 5 7021-8 ####[facility] LABCLIA [id number] [place] [address] Monocytes/100 WBC (Bld) 5.9 % Normal [facility] Comment on above: Order Comment: Speci men Type: BLOOD SPECIMENOrdering Facility: [facility] Address: [address] [place] [address] Performed By: #### 5 7021-8 ####[facility] LABCLIA [id number] [place] [address] Neutrophils (Bld) [#/Vol] 2.63 10*3/uL Normal 1.45-7.50 [facility] Comment on above: Order Comment: Speci men Type: BLOOD SPECIMENOrdering Facility: [facility] Address: [address] [place] [address] Performed By: #### 5 7021-8 ####[facility] LABCLIA [id number] [place] [address] Neutrophils/100 WBC (Bld) 53.4 % Normal [facility] Comment on above: Order Comment: Speci men Type: BLOOD SPECIMENOrdering Facility: [facility] Address: [address] [place] [address] Performed By: #### 5 7021-8 ####[facility] LABCLIA [id number] [place] [address] Nucleated RBC (Bld) [#/Vol] 10*3/uL Normal <0.01 [facility] Comment on above: Order Comment: Speci men Type: BLOOD SPECIMENOrdering Facility: [facility] Address: [address] [place] [address] Performed By: #### 5 7021-8 ####[facility] LABCLIA [id number] [place] [address] Nucleated RBC/100 WBC (Bld) [Ratio] 0.0 /100 WBC Normal [facility] Comment on above: Order Comment: Speci men Type: BLOOD SPECIMENOrdering Facility: [facility] Address: [address] [place] [address] Performed By: #### 5 7021-8 ####[facility] LABCLIA [id number] [place] [address] Platelet mean volume (Bld) [Entitic vol] 10.7 fL Normal 9.0-12.7 [facility] Comment on above: Order Comment: Speci men Type: BLOOD SPECIMENOrdering Facility: [facility] Address: [address] [place] [address] Performed By: #### 5 7021-8 ####[facility] LABCLIA [id number] [place] [address] Platelets (Bld) [#/Vol] 136 10*3/uL Low 150-400 [facility] Comment on above: Order Comment: Speci men Type: BLOOD SPECIMENOrdering Facility: [facility] Address: [address] [place] [address] Performed By: #### 5 7021-8 ####[facility] LABCLIA [id number] [place] [address] RBC (Bld) [#/Vol] 4.21 10*6/uL Normal 3.90-5.20 [facility] Comment on above: Order Comment: Speci men Type: BLOOD SPECIMENOrdering Facility: [facility] Address: [address] [place] [address] Performed By: #### 5 7021-8 ####[facility] LABCLIA [id number] [place] [address] WBC (Bld) [#/Vol] 4.92 10*3/uL Normal 3.70-11.00 [facility] Comment on above: Order Comment: Speci men Type: BLOOD SPECIMENOrdering Facility: [facility] Address: [address] [place] [address] Performed By: #### 5 7021-8 ####[facility] LABCLIA [id number] [place] [address] CEA SerPl-mCncon 08-29-2023 Carcinoembryonic Ag [Mass/Vol] 2.5 ng/mL Normal <=2.9 [facility] Comment on above: Order Comment: Speci men Type: BLOOD SPECIMENOrdering Facility: [facility] Address: [address] [place] [address] Result Comment: Carc inoembryonic antigen test is used as an aid in monitoring response to treatment or recurrence in patients with established colorectal, breast, lung, prostatic, pancreatic, and ovarian carcinomas. Clinical correlation is required.The Carcinoembryonic antigen test was performed using the [employer] Unicel DXI paramagnetic particle chemiluminescent immunoassay method. Results obtained with different assay methods or kits cannot be used interchangeably. Performed By: #### 2 039-6 ####[facility] LABCLIA [id number] [place] [address] [place] CNCNPATEDon 08-29-2023 CNCNPATED Normal [facility] CNOVSPon 08-29-2023 CNOVSP Normal [facility] CNPNon 08-29-2023 CNPN Normal [facility] Comprehensive metabolic 2000 panelon 08-29-2023 Albumin [Mass/Vol] 4.3 g/dL Normal 3.9-4.9 [facility] [place] [facility] Comment on above: Order Comment: Speci men Type: BLOOD SPECIMENOrdering Facility: [facility] Address: [address] [place] [address] Performed By: #### 2 4323-8 ####[facility] LABCLIA [id number] [place] [address] ALP [Catalytic activity/Vol] 64 U/L Normal 34-123 [facility] Comment on above: Order Comment: Speci men Type: BLOOD SPECIMENOrdering Facility: [facility] Address: [address] [place] [address] Performed By: #### 2 4323-8 ####[facility] LABCLIA [id number] [place] [address] ALT [Catalytic activity/Vol] 34 U/L Normal 7-38 [facility] Comment on above: Order Comment: Speci men Type: BLOOD SPECIMENOrdering Facility: [facility] Address: [address] [place] [address] Performed By: #### 2 4323-8 ####[facility] LABCLIA [id number] [place] [address] Anion gap [Moles/Vol] 9 mmol/L Normal 9-18 [facility] Comment on above: Order Comment: Speci men Type: BLOOD SPECIMENOrdering Facility: [facility] Address: [address] [place] [address] Performed By: #### 2 4323-8 ####[facility] LABCLIA [id number] [place] [address] AST [Catalytic activity/Vol] 27 U/L Normal 13-35 [facility] Comment on above: Order Comment: Speci men Type: BLOOD SPECIMENOrdering Facility: [facility] Address: [address] [place] [address] Performed By: #### 2 4323-8 ####[facility] LABCLIA [id number] [place] [address] Bilirubin [Mass/Vol] 0.3 mg/dL Normal 0.2-1.3 [facility] Comment on above: Order Comment: Speci men Type: BLOOD SPECIMENOrdering Facility: [facility] Address: [address] [place] [address] Performed By: #### 2 4323-8 ####[facility] LABCLIA [id number] [place] [address] Calcium [Mass/Vol] 9.5 mg/dL Normal 8.5-10.2 [facility] [place] [facility] Comment on above: Order Comment: Speci men Type: BLOOD SPECIMENOrdering Facility: [facility] Address: [address] [place] [address] Performed By: #### 2 4323-8 ####[facility] LABCLIA [id number] [place] [address] Chloride [Moles/Vol] 107 mmol/L High 97-105 [facility] Comment on above: Order Comment: Speci men Type: BLOOD SPECIMENOrdering Facility: [facility] Address: [address] [place] [address] Performed By: #### 2 4323-8 ####[facility] LABCLIA [id number] [place] [address] CO2 [Moles/Vol] 27 mmol/L Normal 22-30 [facility] Comment on above: Order Comment: Speci men Type: BLOOD SPECIMENOrdering Facility: [facility] Address: [address] [place] [address] Performed By: #### 2 4323-8 ####[facility] LABCLIA [id number] [place] [address] Creatinine [Mass/Vol] 0.85 mg/dL Normal 0.58-0.96 [facility] Comment on above: Order Comment: Speci men Type: BLOOD SPECIMENOrdering Facility: [facility] Address: [address] [place] [address] Performed By: #### 2 4323-8 ####[facility] LABCLIA [id number] [place] [address] Creatinine and Glomerular filtration rate.predicted panel (S/P/Bld) 77 mL/min/1.73m??? Normal >=60 [facility] Comment on above: Order Comment: Speci men Type: BLOOD SPECIMENOrdering Facility: [facility] Address: [address] [place] [address] Result Comment: Kelsey mated Glomerular Filtration Rate (eGFR) is calculated using the 2020 CKD-EPI creatinine equation. This equation utilizes serum creatinine, sex, and age as parameters. The creatinine assay has traceable calibration to isotope dilution-mass spectrometry. Refer to KDIGO guidelines for clinical interpretation. In patients with unstable renal function, e.g. those with acute kidney injury, the eGFR may not accurately reflect actual GFR. Performed By: #### 2 4323-8 ####[facility] LABCLIA [id number] [place] [address] Glucose [Mass/Vol] 123 mg/dL High 74-99 [facility] [place] [facility] Comment on above: Order Comment: Speci men Type: BLOOD SPECIMENOrdering Facility: [facility] Address: [address] [place] [address] Result Comment: The [place] Diabetes Association (ADA) provides guidance for cutoff values for fasting glucose and random glucose. The ADA defines fasting as no caloric intake for at least 8 hours. Fasting plasma glucose results between 100 to 125 mg/dL indicate increased risk for diabetes (prediabetes).Fasting plasma glucose results greater than or equal to 126 mg/dL meet the criteria for diagnosis of diabetes. In the absence of unequivocal hyperglycemia, results should be confirmed by repeat testing. In a patient with classic symptoms of hyperglycemia or hyperglycemic crisis, random plasma glucose results greater than or equal to 200 mg/dL meet the criteria for diagnosis of diabetes.Reference: Standards of Medical Care in Diabetes 2016, [place] Diabetes Association. Diabetes Care. 2016.39(Suppl 1). Performed By: #### 2 4323-8 ####[facility] LABCLIA [id number] [place] [address] Potassium [Moles/Vol] 4.1 mmol/L Normal 3.7-5.1 [facility] Comment on above: Order Comment: Speci men Type: BLOOD SPECIMENOrdering Facility: [facility] Address: [address] [place] [address] Performed By: #### 2 4323-8 ####[facility] LABCLIA [id number] [place] [address] Protein [Mass/Vol] 6.7 g/dL Normal 6.3-8.0 [facility] [place] [facility] Comment on above: Order Comment: Speci men Type: BLOOD SPECIMENOrdering Facility: [facility] Address: [address] [place] [address] Performed By: #### 2 4323-8 ####[facility] LABCLIA [id number] [place] [address] Sodium [Moles/Vol] 143 mmol/L Normal 136-144 [facility] [place] Comment on above: Order Comment: Speci men Type: BLOOD SPECIMENOrdering Facility: [facility] Address: [address] [place] [address] Performed By: #### 2 4323-8 ####[facility] LABCLIA [id number] [place] [address] Urea nitrogen [Mass/Vol] 14 mg/dL Normal 7-21 [facility] Comment on above: Order Comment: Speci men Type: BLOOD SPECIMENOrdering Facility: [facility] Address: [address] [place] [address] Performed By: #### 2 4323-8 ####[facility] LABCLIA [id number] [place] [address] Ferritin SerPl-mCncon 2022 Ferritin [Mass/Vol] 49.1 ng/mL Normal 14.7-205.1 [facility] Comment on above: Order Comment: Speci men Type: BLOOD SPECIMENOrdering Facility: [facility] Address: [address] [place] [address] Performed By: #### 2 276-4, 2284-8, 68611-1, 2132-9 ####[facility] LABCLIA [id number] [facility] [id number] [address] [place] Folate SerPl-mCncon 08-29- 23 Folate [Mass/Vol] ng/mL Normal >4.7 [facility] Comment on above: Order Comment: Speci men Type: BLOOD SPECIMENOrdering Facility: [facility] Address: [address] [place] [address] Result Comment: A re sult of > 20 ng/mL is not necessarily indicative of a pathologic or treatable condition: it reflects a limitation of the test methodology.Assay reference range: 4.8 to 24.2 ng/mL. Suitable for detection of folate deficiency.Reference:Folate III (Folate III) [package insert V 1.0 Latvian]. [facility], [place], [place]: July 2015. Performed By: #### 2 276-4, 2284-8, 19876-4, 9 ####[facility] LABCLIA [id number] [place] [address] [place] Iron and Iron binding capaci ty panelon 08-29-2023 Iron [Mass/Vol] 40 ug/dL Low 41-186 [facility] Comment on above: Order Comment: Speci men Type: BLOOD SPECIMENOrdering Facility: [facility] Address: [address] [place] [address] Performed By: #### 2 276-4, 4-8, 34299-4, 2132-05 ####[facility] LABIA [id number] [place] [address] [place] Iron binding capacity [Mass/Vol] 336 ug/dL Normal 232-386 [facility] Comment on above: Order Comment: Speci men Type: BLOOD SPECIMENOrdering Facility: [facility] Address: [address] [place] [address] Performed By: #### 2 276-4, 4-8, 04382-7, 2132-05 ####[facility] LABIA [id number] [place] [address] [place] Iron/TIBC [Molar ratio] 11.9 % Low 15.0-57.0 [facility] Comment on above: Order Comment: Speci men Type: BLOOD SPECIMENOrdering Facility: [facility] Address: [address] [place] [address] Performed By: #### 2 276-4, 2284-8, 71942-2, 9 ####[facility] LABCLIA [id number] [place] [address] [place] Vit B12 SerPl-mCncon 023 Cobalamin (Vitamin B12) [Mass/Vol] 453 pg/mL Normal 232-1245 [facility] Comment on above: Order Comment: Speci men Type: BLOOD SPECIMENOrdering Facility: [facility] Address: [address] [place] [address] Performed By: #### 2 276-4, 2284-8, 29114-6, 2132-9 ####[facility] LABCLIA [id number] [facility] [place] [address] [place] CNPNon 08-28-2023 CNPN Normal [facility] CNPNon 08-24-2023 CNPN Normal [facility] ANES POSTPROC EVALon 023 ANES POSTPROC EVAL HNO ID: [id number] Author: Fern Reynolds MD Service: Anesthesiology Author Type: Physician Type: Anesthesia Postprocedure Evaluation Filed: 08/22/2023 2:30 PM Note Text: POST ANESTHESIA EVALUATION NOTE : 1960 Procedure Summary Date: 08/22/23 Room / Location: GI TRAVEL CART / GI Anesthesia Start: 747 Anesthesia Stop: 918 Procedures: FLEX BRONCHOSCOPY W/ NAVIGATIONAL IMAGE GUIDANCE (Lung) BRONCHOSCOPY FLEXIBLE WITH C-ARM (Lung) BRONCHOSCOPY,RIGID/FLEXI BLE W/ FLUORO,W/ENDOBRONCHIAL ULTRASOUND (EBUS) GUIDED TRANSTRACHEAL/ TRANSBRONCHIAL ASPIRATION/BIOPSY,1 OR 2 MEDIASTINAL AND/OR HILAR LYMPH NODE STATIONS/STRUCTURES (Lung) Diagnosis: Lung nodule (Lung nodule [R91.1]) Surgeons: Dao Dixon MD Responsible Provider: Fern Reynolds MD Anesthesia Type: general ASA Status: 3 Anesthesia Type: general Airway Type: ETT Last Vitals Vitals Value Taken Time BP 124/74 08/22/23 1000 Temp 36.3 ?C (97.3 ?F) 08/22/23 0957 HR SpO2 76 08/22/23 1001 Resp 12 08/22/23 0957 SpO2 100 % 08/22/23 1001 Vitals shown include unfiled device data. Post Anesthesia Patient Status Patient Evaluation: PACU. PACU/ICU Patient Condition: stable. Anticipated Disposition: phase 2 then home. Neurological Status: aware and responsive. Pulmonary Status: breathing comfortably on supplemental oxygen Airway Control: returned to baseline unsupported. Cardiovascular Status: stable. Pain Management: clinically adequate Postoperative Hydration: acceptable. Intraoperative Events: no significant anesthesia events Recommendation: continue current plan of care. MIPS#404 Anesthesiology Smoking Abstinence Not current smoker MIPS#424 Perioperative Temperature Management Anesthesia start to Anesthesia end time was 60 minutes or longer. (4255F), Anesthesia administered was General (Inhalational or TIVA), or Neuraxial block (X0424) MIPS#430 ADULT Prevention of Post-Operative Nausea AND Vomiting (PONV) Patient did not receive an inhalational anesthetic (xx430) MIPS#463 Pediatric Prevention of Post-Operative Vomiting (POV) - Combination Therapy Patient aged 3-17 years did not receive an inhalational anesthetic.(XX463) Patient received at least 2 prophylactic pharmacologic anti-emetic agents of different classes preop and/or intraop. Anesthesia Observations No Documentation SIGNATURE: Fern Reynolds MD PATIENT NAME: Nancy Sue DATE: August 22, 2023 TIME: 2:28 PM CSN: [id number] [facility] ANES PRE-OPon 08-22-2023 ANES PRE-OP HNO ID: [id number] Author: Fern Reynolds MD Service: Anesthesiology Author Type: Physician Type: Anesthesia Preprocedure Evaluation Filed: 08/22/2023 7:42 AM Note Text: ANESTHESIOLOGY DAY OF SURGERY NOTE : 1960 Procedure Information Date/Time: 08/22/23 0730 Procedures: FLEX BRONCHOSCOPY W/ NAVIGATIONAL IMAGE GUIDANCE (Lung) BRONCHOSCOPY FLEXIBLE WITH C-ARM (Lung) BRONCHOSCOPY,RIGID/FLEXI BLE W/ FLUORO,W/ENDOBRONCHIAL ULTRASOUND (EBUS) GUIDED TRANSTRACHEAL/ TRANSBRONCHIAL ASPIRATION/BIOPSY,1 OR 2 MEDIASTINAL AND/OR HILAR LYMPH NODE STATIONS/STRUCTURES (Lung) Location: [facility] / [facility] Surgeons: Dao Dixon MD Estimated body mass index is 37.44 kg/m? as calculated from the following: Height as of 08/13/23: 165.1 cm (5' 5 ). Weight as of 08/13/23: 102.1 kg (225 lb). Most recent hematocrit and potassium results: Hematocrit 39.6 07/13/2023 Potassium 4.2 07/13/2023 Relevant Problems ANESTHESIA (+) PONV (postoperative nausea and vomiting) CARDIO (+) HTN (hypertension) ENDO (+) Hypothyroidism HPI: 63 y/o female with a PMH significant for HTN, hypothyroidism, sigmoid/rectal cancer s/p Mediport for chemotherapy, who is now here for flex bronchoscopy with navigational image guidance for evaluation of lung nodule. At the time of examination, Mrs. Sue stated that the lung nodule was an incidental finding during the workup for her rectal mass. The patient also reports having PONV following prior surgeries. Mrs. Sue did not take any of her medications this morning for her BP. PSH: Hysterectomy I - PHYSICAL EVALUATION AIRWAY Patient intubated: No. Tracheostomy tube not present Mallampati: II. TM distance: <3 FB. Neck ROM: full ROM without neurological symptoms. Mouth opening: adequate. Short neck: yes. Thick neck: yes DENTAL Dental findings: teeth intact. II - ANESTHESIA PLAN ASA Score: 3 Anesthetic Plan: general Airway type: ETT NPO Status: adequate Anesthetic plan additional comments: Plan to place a scopolamine patch prior to induction and will also use a Propofol infusion for maintenance of general anesthesia as well as for PONV prophylaxis. Will also administer IV Zofran and Decadron for PONV prophylaxis . Beta Konstantin Monitoring Plan Monitoring plan: standard ASA. Post Procedure Analgesic Plan Postoperative analgesic plan: parenteral or oral opioids. Informed Consent Anesthetic risks, benefits, alternatives, personnel and consent discussed: yes. Patient / Responsible Constitution Party agrees to proceed: yes Patient / Surrogate agrees to blood products: blood products not planned Significant changes in the patient condition since the History and Physical, not otherwise documented in primary service progress note: no. Potential Anesthesia issues that may suggest increased risk of complications or contraindication to planned procedure: none. Vitals Value Taken Time BP 145/83 08/22/23712 Pulse Resp 18 08/22/23712 Temp 36.4 ?C (97.5 ?F) 08/22/23712 SpO2 97 % 08/22/23712 No current facility-administered medications on file as of 08/22/2023. Outpatient Medications as of 08/22/2023 Medication Sig - acetaminophen/diphenhydr amine (TYLENOL PM ORAL) Take 1 Dose by mouth as needed. - levothyroxine (SYNTHROID) 50 mcg tablet Take 50 mcg by mouth once daily. - omega 0-xfd-gzp-fish oil 120-180-500 mg cap Take 500 mg by mouth once daily. - iv contrast (will be provided with radiology test) MRI Rectum Inject, intravenously, once for 1 dose. No IV access, insert saline lock prior to the beginning of sedation, infusion, injection of imaging exam. Discontinue saline lock post exam. If Pt has a central line or IVAD, may access for administration according to line specific nursing protocol. Once exam is complete flush line and de-access according to line specific nursing protocol in the MR contrast administration guidelines link. - enteric contrast (will be provided with radiology test) MRI RECTUM WO/W. Administer, As Directed One Time Only, via Oral, Rectal, both Oral and Rectal, Enteric Tube, Stoma or Indwelling Catheter,? Enteric Contrast as designated per enteric contrast guidelines - Pramoxine-Hydrocortisone (ANALPRAM-HC) 1-1 % rectal cream 1 g by RECTAL route two times a day as needed (rectal discomfort). I have interviewed and examined the patient. I have reviewed the medical record and/or the pre-anesthesia evaluation, pertinent labs, and test results. This contains updated information obtained within 48 hours of Surgery/Procedure. SIGNATURE: Fern Reynolds MD PATIENT NAME: Nancy Sue DATE: August 22, 2023 TIME: 7:21 AM CSN: [id number] Normal [facility] CYTOLOGY NON-GYNon 3 ADEQUACY INTERPRETATION Normal [facility] Comment on above: Order Comment: Speci men Type: SPECIMEN OBTAINED BY ASPIRATIONOrdering Facility: [facility]: [address] [facility] [address] Result Comment: A: # 1,3,5: Non-diagnostic #2: Atypical cells present #4: Lesion cells present, favor low-grade neuroendocrine tumor Dr. Franklin Ku/Jose Gan Each letter in the above intra-procedural assessment refers to a unique site. The specific site is indicated in the final diagnosis portion of the report. Each number in this assessment references a discrete evaluation episode. Intra-procedural assessment performed at [facility], [address] [place] [address] Performed By: #### C YTONON ####[facility] [id number] [address] [place] CASE REPORT Normal [facility] Comment on above: Order Comment: Speci men Type: SPECIMEN OBTAINED BY ASPIRATIONOrdering Facility: [facility] Address: [address] [place] [address] Result Comment: [facility] Cytology Report Case: [id number] Authorizing Provider: Dao Dixon MD Collected: 08/22/2023 08:09 AM Ordering Location: [facility] Received: 08/22/2023 10:37 AM Endoscopy - ENDO Pathologist: Isai Ku MD Specimen: TRANSBRONCHIAL FINE-NEEDLE ASPIRATION, RIGHT LOWER LOBE, RIGHT LOWER LOBE NODULE Performed By: #### C YTONON ####[facility] [id number] [address] CLINICAL HISTORY Colon adenocarcinoma Normal [facility] Comment on above: Order Comment: Speci men Type: SPECIMEN OBTAINED BY ASPIRATIONOrdering Facility: [facility] Address: [address] [place] [address] Performed By: #### C YTONON ####[facility] [id number] [address] DIAGNOSIS COMMENT Normal [facility] Comment on above: Order Comment: Speci men Type: SPECIMEN OBTAINED BY ASPIRATIONOrdering Facility: [facility] Address: [address] [place] [address] Result Comment: The following immunohistochemical stains with appropriate controls were performed on the cell block and the results support the interpretation above: synaptophysin and INSM1 - positive. The differential diagnosis includes carcinoid tumor and atypical carcinoid tumor, which cannot be reliably distinguished by cytology alone. However, necrosis and mitotic activity are not identified in this sample. Dr. Springer reviewed selected slides from the case in intradepartmental consultation, via telepathology, with concurrence. Laboratory Developed Test (LDT) Disclaimer: Performance characteristics of immunohistochemical, immunofluorescent and chromogenic in-situ hybridization tests have been determined by the performing laboratory within [facility]???s [facility] [place] ([facility]), [facility], [facility], [facility], [facility], [facility], or [facility]) in a manner consistent with CLIA requirements. One or more of these tests have not been cleared or approved by the FDA. [facility] is regulated under CLIA as qualified to perform high-complexity testing. These tests are used for clinical purposes. They should not be regarded as investigational or for research. Positive and negative controls stain appropriately. Performed By: #### C YTONON ####[facility] LABORATORYCLIA [id number] [address] FINAL DIAGNOSIS Normal [facility] Comment on above: Order Comment: Speci men Type: SPECIMEN OBTAINED BY ASPIRATIONOrdering Facility: [facility] Address: [address] [place] [address] Result Comment: A - TRANSBRONCHIAL FINE-NEEDLE ASPIRATION, RIGHT LOWER LOBE - RIGHT LOWER LOBE NODULE Neoplastic cells present derived from low-grade neuroendocrine tumor (see comment). The following cell blocks were associated with this case: A1 Cell Block, Alcohol Fixed Performed By: #### C YTONON ####[facility] LABORATORYCLIA [id number] [address] FINAL PERFORMING LAB Normal [facility] Comment on above: Order Comment: Speci men Type: SPECIMEN OBTAINED BY ASPIRATIONOrdering Facility: [facility] Address: [address] [place] [address] Result Comment: Tech nical component, health occupations teacher screening performed at [facility], [address] [place] [address] CLIA# [id number] Diagnostic interpretation performed at [facility], [address] [place] [address] CLIA# [id number] Mannequin Mounter: Isai Ku M.D. Performed By: #### C YTONON ####[facility] LABORATORYCLIA [id number] [address] GROSS DESCRIPTION Normal [facility] Comment on above: Order Comment: Speci men Type: SPECIMEN OBTAINED BY ASPIRATIONOrdering Facility: [facility] Address: [address] [place] [address] Result Comment: A. T RANSBRONCHIAL FINE-NEEDLE ASPIRATION, RIGHT LOWER LOBE 30 cc clear red CytoLyt with material. ThinPrep and Cell Block prepared and 10 smears (5 air dried and 5 fixed). Performed By: #### C YTONON ####[facility] LABORATORYCLIA [id number] [address] [place] ORDER COMMENT [facility] Comment on above: Order Comment: Speci men Type: SPECIMEN OBTAINED BY ASPIRATIONOrdering Facility: [facility] Address: [address] [place] [address] Result Comment: Pre- op diagnosis: Lung nodule [R91.1] Performed By: #### C YTONON ####[facility] LABORATORYCLIA [id number] [address] [place] NURSING PROGon 08-22-2023 NURSING PROG HNO ID: [id number] Author: Mesha Luis RN Service: Nursing Author Type: Registered Nurse Type: Nursing Progress Note Filed: 08/22/2023 9:56 AM Note Text: PATIENT EDUCATION TOPIC: PROCEDURE / SURGERY: Post-op Teaching: Med Administration, Symptom Management, and Wound Care PATIENT NAME: Nancy Sue PATIENT LOCATION: ENDO POOL/ ENDO POOL READINESS TO LEARN COGNITIVE ABILITY: Alert and oriented MOTIVATION TO LEARN: Eager Interested FAMILY SUPPORT: High - Very involved in pt care INSTRUCTION PROVIDED TO: Patient and Spouse PATIENT LEARNS BEST BY: Individual Instruction Written Instruction - Hand-outs Verbal Instruction FACTORS AFFECTING LEARNING: None PHYSICAL LIMITATIONS AFFECTING LEARNING: None LEARNING RESPONSE DIAGNOSIS: ADULT: Well Adult PATIENT/FAMILY RESPONSE: Verbalizes understanding of: POST-OPERATIVE INSTRUCTIONS-Correct actions to take to reduce postoperative complications METHOD OF INSTRUCTION: Individual instruction Written instruction - handouts Verbal instruction FOLLOW-UP PLAN: Patient instructed to call with any further issues INSTRUCTIONAL AIDS USED: NA SUPPLEMENTAL MATERIAL PROVIDED TO PATIENT: None REFERRAL (RECOMMENDATION): None Electronically Signed By: Mesha Luis [facility] NURSING PROG HNO ID: [id number] Author: Radha Gee RN Service: ? Author Type: Registered Nurse Type: Nursing Progress Note Filed: 08/22/2023 7:09 AM Note Text: PATIENT EDUCATION TOPIC: PROCEDURE / SURGERY: Procedure/Surgery: Lung Vision PATIENT NAME: Nancy Sue PATIENT LOCATION: ENDO POOL/FV ENDO POOL READINESS TO LEARN COGNITIVE ABILITY: Alert and oriented MOTIVATION TO LEARN: Eager FAMILY SUPPORT: None - Unavailable/disintereste d INSTRUCTION PROVIDED TO: Patient PATIENT LEARNS BEST BY: Verbal Instruction FACTORS AFFECTING LEARNING: None PHYSICAL LIMITATIONS AFFECTING LEARNING: None LEARNING RESPONSE DIAGNOSIS: ADULT: lung nodule PATIENT/FAMILY RESPONSE: Verbalizes understanding of: PRE-OPERATIVE INSTRUCTIONS-Correct action to take to follow pre-operative instructions METHOD OF INSTRUCTION: Verbal instruction FOLLOW-UP PLAN: Complete - No need for follow-up INSTRUCTIONAL AIDS USED: NA SUPPLEMENTAL MATERIAL PROVIDED TO PATIENT: None REFERRAL (RECOMMENDATION): None Electronically Signed By: Radha Gee [facility] XR CHEST 1V FRONTALon 2022 XR CHEST 1V FRONTAL * * *Final Report* * * DATE OF EXAM: Aug 22 2023 9:06AM FVO [id number] - XR CHEST 1V FRONTAL / PROCEDURE REASON: intra op bronch * * * * Physician Interpretation * * * * INTRAOPERATIVE FLUOROSCOPY HISTORY: intra op bronch COMPARISON: None TECHNIQUE: Fluoroscopic imaging was provided for procedure localization. Fluoroscopic Radiation Summary: Plane A, Air Kerma: 40.0 mGy Dose Area Product (DAP): Fluoro time: 2:02 min:sec RESULT: See impression IMPRESSION: Fluoroscopy was used in the operating room for procedural guidance for bronchoscopy. 5 portable fluoroscopic spot films were obtained. Recommend correlation with real-time interoperative findings and procedure note. Admiralty Lawyer: PSCB Transcribe Date/Time: Aug 22 2023 9:22A Dictated by : LIDIA JIN MD This examination was interpreted and the report reviewed and electronically signed by: LIDIA JIN MD on Aug 22 2023 9:55AM EST [id number] [facility] CNCNPATEDon 08-21-2023 CNCNPATED [facility] CNPNon 08-21-2023 CNPN [facility] MISC SEND OUT TST 1on 2022 REFERRAL LAB 1 [facility] Comment on above: Order Comment: Speci men Type: BLOOD SPECIMENOrdering Facility: [facility] Address: [address] [place] [address] Performed By: #### M ISC1 ####NON-INTERFACED REF LABSCLIA SEE SCANNED RESULTS TEST 1 Multi cancer Panel Normal [facility] [place] [facility] Comment on above: Order Comment: Speci men Type: BLOOD SPECIMENOrdering Facility: [facility] Address: [address] [place] [address] Performed By: #### M ISC1 ####NON-INTERFACED REF LABSCLIA SEE SCANNED RESULTS TEST RESULTS 1 View results in Scan rebeka Documents link when available. Normal [facility] Comment on above: Order Comment: Speci men Type: BLOOD SPECIMENOrdering Facility: [facility] Address: [address] [place] [address] Performed By: #### M ISC1 ####NON-INTERFACED REF LABSCLIA SEE SCANNED RESULTS BRIEF OP NOTon 08-15-2023 BRIEF OP NOT HNO ID: [id number] Author: Aydin Jerez MD Service: ? Author Type: Physician Type: Brief Op Note Filed: 08/15/2023 4:05 PM Note Text: BRIEF OP NOTE LOG ID: [id number] SURGERY/PROCEDURE DATE: 08/15/2023 INCISION/PROCEDURE START TIME: 3:49 PM INCISION CLOSE/PROCEDURE END TIME: 4:03 PM Surgeon(s)/Proceduralist (s) and Board Certified Arts Therapist(s): Aydin Jerez MD -- IR Staff Procedure(s): Venous access port placement Sedation/Anesthesia: Moderate sedation Findings: Successful placement of a right-sided chest port via a patent right internal jugular vein. Estimated Blood Loss: Minimal Specimens: None Complications: None Pre-Op/Pre-Procedure Diagnosis/Indication: Colon cancer Post-Op/Post-Procedure Diagnosis/Indication: Same as pre-procedure SIGNATURE: Aydin Jerez MD PATIENT NAME: Nancy Sue DATE: August 15, 2023 TIME: 4:05 PM PAGER/CONTACT #: [phone] [facility] HISTORY PHYSICALon HISTORY PHYSICAL HNO ID: [id number] Author: Aydin Jerez MD Service: ? Author Type: Physician Type: HANDP Filed: 08/15/2023 3:20 PM Note Text: UPDATED PROCEDURAL SEDATION HISTORY AND PHYSICAL EXAMINATION SERVICE DATE: August 15, 2023 SERVICE TIME: 3:15 PM PHYSICAL EXAM MUST BE COMPLETED ON ADMISSION The History and Physical (completed in the past 30 days) has been reviewed and the patient has been examined. The contents accurately reflect the patient's condition with the following additions or revisions since the HANDP was completed. ASA Class: ASA 2- Mild systemic disease Examination indicates no changes. AIRWAY: 4: Only Hard Palate visible LUNGS: Lungs clear to auscultation, Good diaphragmatic excursion CARDIAC: Regular rate and rhythm Sedation Goal: Moderate sedation Provisional Diagnosis/Treatment Plan: Colon cancer This HANDP can be found in the Electronic Medical Record dated 08/13/2023. SIGNATURE: Aydin Jerez MD PATIENT NAME: Nancy Sue DATE: August 15, 2023 TIME: 3:15 PM [facility] IR FLU GD YOSSI CVA PLACEon IR FLU GD YOSSI CVA PLACE * * *Final Report* * * DATE OF EXAM: Aug 15 2023 4:03PM [facility] 7444 - IR FLU GD YOSSI CVA PLACE / PROCEDURE REASON: Malignant neoplasm of sigmoid colon (HCC) [C18.7] * * * * Physician Interpretation * * * * PROCEDURE: VENOUS PORT PLACEMENT Procedural Personnel Attending physician(s): Aydin Jerez MD Fellow physician(s): None Resident physician(s): None Advanced practice provider(s): None Medical Student(s): None Pre-procedure diagnosis: Colon cancer Post-procedure diagnosis: Same Indication: Administration of chemotherapy Additional clinical history: None PROCEDURE SUMMARY: - Venous access with ultrasound guidance - Tunneled port insertion under fluoroscopic guidance - Additional procedure(s): None PROCEDURE DETAILS: Pre-procedure History and imaging of central venous access reviewed (QCDR): Yes Consent: Risks, benefits, treatment options, potential complications and personnel to be involved were discussed (including the risks of radiation exposure, contrast and anesthesia administration, and any equipment needed for the procedure to ensure best possible outcome) with the patient and all questions were answered and consent was obtained prior to procedure. Premedicated for contrast allergy: n/a Transfusion of blood products: No Medication reconciliation: The patient's medications and allergies were reviewed in the electronic medical record and reconciled to the proposed procedure/treatment. Pilar-procedure discussion: The appropriate elements of the pre-procedure discussion, safety check list and sign-out were performed. Time out: A time out was performed immediately prior to procedure start with the nursing and interventional team, correctly identifying the name, date of , procedure, anatomy (including marking of site and side if applicable), patient position, procedure consent form, relevant diagnostic and radiology test results, antibiotic administration if applicable, safety precautions, and procedure-specific equipment needs. Start of procedure: 1548 End of procedure: 1603 Patient position: Supine Preparation (MIPS): The site was prepared and draped using all elements of maximal sterile barrier technique including sterile gloves, sterile gown, cap, mask, large sterile sheet, sterile ultrasound probe cover, hand hygiene and cutaneous antisepsis with 2% chlorhexidine. Medical reason for site preparation exception (MIPS): Not applicable Antibiotics: None Antibiotic infusion start time: N/A Prophylactic antibiotic administered: None Contrast None Image Guidance Fluoroscopic and sonographic guidance was used. Ultrasound demonstrated patency of the target vein without filling defects. Access was obtained under direct sonographic visualization. A sonographic image of the vessel was obtained and placed into the permanent archive for documentation. RADIATION DOSE: FLUOROSCOPIC RADIATION SUMMARY: Plane A, Air Kerma: 3.7 mGy Dose Area Product (DAP): 1058.0 mGy*cm2 Fluoro Time: 0:12 min:sec Radiation dose exceed 3.5 Gy: No If radiation dose exceeded 3.5 Gy, was counseling and instructional brochure provided: N/A Anesthesia/sedation Level of anesthesia/sedation: Moderate sedation (conscious sedation) Anesthesia/sedation administered by: Independent trained observer under attending supervision with continuous monitoring of the patient?s level of consciousness and physiologic status Total intra-service sedation time (minutes): 17 Local anesthesia: 2 % lidocaine Access Local anesthesia was administered. The vessel was sonographically evaluated and determined to be patent. Real time ultrasound was used to visualize needle entry into the vessel and a permanent image was stored. Vein accessed: Internal jugular vein Access technique: Micropuncture set with 21 gauge needle Venography Indication for venography: Not performed Vein catheterized: Not applicable Findings: Not applicable Port placement An incision was made at the upper chest, a pocket was created, and the catheter was tunneled subcutaneously to the venous access site and trimmed to appropriate length. The port was inserted into the pocket and the catheter was advanced via a peel-away sheath into the vein under fluoroscopic guidance. The port was sutured into the pocket using absorbable suture. Catheter tip location was fluoroscopically verified and a permanent image was stored. Port placed: 8 F BARD PowerPort by - Groshong (distal valved) silicone catheter with pressure injectable titanium port. Catheter flush: Normal saline Closure The access site and incision were closed and sterile dressing(s) were applied. Sponge counts were ascertained. Access site closure technique: Tissue adhesive Incision closure technique: Absorbable suture and tissue adhesive Patient discharg (more content not included)... [facility] IR PORTOCATH PLACEMENTon IR PORTOCATH PLACEMENT * * *Final Report* * * DATE OF EXAM: Aug 15 2023 4:03PM [facility] 8966 - IR PORTOCATH PLACEMENT / PROCEDURE REASON: Malignant neoplasm of sigmoid colon (HCC) [C18.7] * * * * Physician Interpretation * * * * PROCEDURE: VENOUS PORT PLACEMENT Procedural Personnel Attending physician(s): Aydin Jerez MD Fellow physician(s): None Resident physician(s): None Advanced practice provider(s): None Medical Student(s): None Pre-procedure diagnosis: Colon cancer Post-procedure diagnosis: Same Indication: Administration of chemotherapy Additional clinical history: None PROCEDURE SUMMARY: - Venous access with ultrasound guidance - Tunneled port insertion under fluoroscopic guidance - Additional procedure(s): None PROCEDURE DETAILS: Pre-procedure History and imaging of central venous access reviewed (QCDR): Yes Consent: Risks, benefits, treatment options, potential complications and personnel to be involved were discussed (including the risks of radiation exposure, contrast and anesthesia administration, and any equipment needed for the procedure to ensure best possible outcome) with the patient and all questions were answered and consent was obtained prior to procedure. Premedicated for contrast allergy: n/a Transfusion of blood products: No Medication reconciliation: The patient's medications and allergies were reviewed in the electronic medical record and reconciled to the proposed procedure/treatment. Pilar-procedure discussion: The appropriate elements of the pre-procedure discussion, safety check list and sign-out were performed. Time out: A time out was performed immediately prior to procedure start with the nursing and interventional team, correctly identifying the name, date of , procedure, anatomy (including marking of site and side if applicable), patient position, procedure consent form, relevant diagnostic and radiology test results, antibiotic administration if applicable, safety precautions, and procedure-specific equipment needs. Start of procedure: 1549 End of procedure: 1603 Patient position: Supine Preparation (MIPS): The site was prepared and draped using all elements of maximal sterile barrier technique including sterile gloves, sterile gown, cap, mask, large sterile sheet, sterile ultrasound probe cover, hand hygiene and cutaneous antisepsis with 2% chlorhexidine. Medical reason for site preparation exception (MIPS): Not applicable Antibiotics: None Antibiotic infusion start time: N/A Prophylactic antibiotic administered: None Contrast None Image Guidance Fluoroscopic and sonographic guidance was used. Ultrasound demonstrated patency of the target vein without filling defects. Access was obtained under direct sonographic visualization. A sonographic image of the vessel was obtained and placed into the permanent archive for documentation. RADIATION DOSE: FLUOROSCOPIC RADIATION SUMMARY: Plane A, Air Kerma: 3.7 mGy Dose Area Product (DAP): 1058.0 mGy*cm2 Fluoro Time: 0:12 min:sec Radiation dose exceed 3.5 Gy: No If radiation dose exceeded 3.5 Gy, was counseling and instructional brochure provided: N/A Anesthesia/sedation Level of anesthesia/sedation: Moderate sedation (conscious sedation) Anesthesia/sedation administered by: Independent trained observer under attending supervision with continuous monitoring of the patient?s level of consciousness and physiologic status Total intra-service sedation time (minutes): 17 Local anesthesia: 2 % lidocaine Access Local anesthesia was administered. The vessel was sonographically evaluated and determined to be patent. Real time ultrasound was used to visualize needle entry into the vessel and a permanent image was stored. Vein accessed: Internal jugular vein Access technique: Micropuncture set with 21 gauge needle Venography Indication for venography: Not performed Vein catheterized: Not applicable Findings: Not applicable Port placement An incision was made at the upper chest, a pocket was created, and the catheter was tunneled subcutaneously to the venous access site and trimmed to appropriate length. The port was inserted into the pocket and the catheter was advanced via a peel-away sheath into the vein under fluoroscopic guidance. The port was sutured into the pocket using absorbable suture. Catheter tip location was fluoroscopically verified and a permanent image was stored. Port placed: 8 F BARD PowerPort by - Groshong (distal valved) silicone catheter with pressure injectable titanium port. Catheter flush: Normal saline Closure The access site and incision were closed and sterile dressing(s) were applied. Sponge counts were ascertained. Access site closure technique: Tissue adhesive Incision closure technique: Absorbable suture and tissue adhesive Patient discharge (more content not included)... [facility] US VASCULAR ACCESS GUIDEo n 08-15-2023 US VASCULAR ACCESS GUIDE * * *Final Report* * * DATE OF EXAM: Aug 15 2023 4:03PM [facility] 7765 - [facility] VASCULAR ACCESS GUIDE / PROCEDURE REASON: Malignant neoplasm of sigmoid colon (HCC) [C18.7] * * * * Physician Interpretation * * * * PROCEDURE: VENOUS PORT PLACEMENT Procedural Personnel Attending physician(s): Aydin Jerez MD Fellow physician(s): None Resident physician(s): None Advanced practice provider(s): None Medical Student(s): None Pre-procedure diagnosis: Colon cancer Post-procedure diagnosis: Same Indication: Administration of chemotherapy Additional clinical history: None PROCEDURE SUMMARY: - Venous access with ultrasound guidance - Tunneled port insertion under fluoroscopic guidance - Additional procedure(s): None PROCEDURE DETAILS: Pre-procedure History and imaging of central venous access reviewed (QCDR): Yes Consent: Risks, benefits, treatment options, potential complications and personnel to be involved were discussed (including the risks of radiation exposure, contrast and anesthesia administration, and any equipment needed for the procedure to ensure best possible outcome) with the patient and all questions were answered and consent was obtained prior to procedure. Premedicated for contrast allergy: n/a Transfusion of blood products: No Medication reconciliation: The patient's medications and allergies were reviewed in the electronic medical record and reconciled to the proposed procedure/treatment. Pilar-procedure discussion: The appropriate elements of the pre-procedure discussion, safety check list and sign-out were performed. Time out: A time out was performed immediately prior to procedure start with the nursing and interventional team, correctly identifying the name, date of , procedure, anatomy (including marking of site and side if applicable), patient position, procedure consent form, relevant diagnostic and radiology test results, antibiotic administration if applicable, safety precautions, and procedure-specific equipment needs. Start of procedure: 1548 End of procedure: 1603 Patient position: Supine Preparation (MIPS): The site was prepared and draped using all elements of maximal sterile barrier technique including sterile gloves, sterile gown, cap, mask, large sterile sheet, sterile ultrasound probe cover, hand hygiene and cutaneous antisepsis with 2% chlorhexidine. Medical reason for site preparation exception (MIPS): Not applicable Antibiotics: None Antibiotic infusion start time: N/A Prophylactic antibiotic administered: None Contrast None Image Guidance Fluoroscopic and sonographic guidance was used. Ultrasound demonstrated patency of the target vein without filling defects. Access was obtained under direct sonographic visualization. A sonographic image of the vessel was obtained and placed into the permanent archive for documentation. RADIATION DOSE: FLUOROSCOPIC RADIATION SUMMARY: Plane A, Air Kerma: 3.7 mGy Dose Area Product (DAP): 1058.0 mGy*cm2 Fluoro Time: 0:12 min:sec Radiation dose exceed 3.5 Gy: No If radiation dose exceeded 3.5 Gy, was counseling and instructional brochure provided: N/A Anesthesia/sedation Level of anesthesia/sedation: Moderate sedation (conscious sedation) Anesthesia/sedation administered by: Independent trained observer under attending supervision with continuous monitoring of the patient?s level of consciousness and physiologic status Total intra-service sedation time (minutes): 17 Local anesthesia: 2 % lidocaine Access Local anesthesia was administered. The vessel was sonographically evaluated and determined to be patent. Real time ultrasound was used to visualize needle entry into the vessel and a permanent image was stored. Vein accessed: Internal jugular vein Access technique: Micropuncture set with 21 gauge needle Venography Indication for venography: Not performed Vein catheterized: Not applicable Findings: Not applicable Port placement An incision was made at the upper chest, a pocket was created, and the catheter was tunneled subcutaneously to the venous access site and trimmed to appropriate length. The port was inserted into the pocket and the catheter was advanced via a peel-away sheath into the vein under fluoroscopic guidance. The port was sutured into the pocket using absorbable suture. Catheter tip location was fluoroscopically verified and a permanent image was stored. Port placed: 8 F BARD PowerPort by - Groshong (distal valved) silicone catheter with pressure injectable titanium port. Catheter flush: Normal saline Closure The access site and incision were closed and sterile dressing(s) were applied. Sponge counts were ascertained. Access site closure technique: Tissue adhesive Incision closure technique: Absorbable suture and tissue adhesive Patient disc (more content not included)... [facility] H[facility]: [id number] Author: Yoni Doan RN Service: Nursing Author Type: Registered Nurse Type: Patient Education Filed: 08/15/2023 3:34 PM Note Text: PATIENT EDUCATION TOPIC: PROCEDURE / SURGERY: Procedure/Surgery: Mediport Placement PATIENT NAME: Nancy Sue PATIENT LOCATION: AV Rad Proc/AV Rad Proc READINESS TO LEARN COGNITIVE ABILITY: Alert and oriented MOTIVATION TO LEARN: Interested FAMILY SUPPORT: Unable to assess - Family not present INSTRUCTION PROVIDED TO: Patient PATIENT LEARNS BEST BY: Written Instruction - Hand-outs Verbal Instruction FACTORS AFFECTING LEARNING: None PHYSICAL LIMITATIONS AFFECTING LEARNING: None LEARNING RESPONSE DIAGNOSIS: ADULT: Colon Cancer PATIENT/FAMILY RESPONSE: Verbalizes understanding of: POST-PROCEDURE INSTRUCTIONS-Correct actions to take to reduce post procedure complications PRE-PROCEDURE INSTRUCTIONS-Correct action to take to follow pre-procedure instructions METHOD OF INSTRUCTION: Written instruction - handouts Verbal instruction FOLLOW-UP PLAN: Patient instructed to call with any further issues Follow-up with Primary Care INSTRUCTIONAL AIDS USED: NA SUPPLEMENTAL MATERIAL PROVIDED TO PATIENT: Home going instructions sent with pt on sedation and port placement REFERRAL (RECOMMENDATION): None Electronically Signed By: Yoni Doan [facility] (PUFAMO ) -------- NANCY SUE ([id number]) 1960 F Date Time Provider Department 08/13/23 10:00 AM DAO DIXON PUFAMO During your visit today, we recorded the following information about you: Pulse Blood pressure Weight Height 77/minute 163/86 102.1 kg 1.626 m Dao Dixon MD 08/13/2023 10:36 AM Signed Interventional Pulmonary Consultation Date of Service: August 13, 2023 Patient: Nancy Sue Medical Record: [id number] Primary Care Physician: Jose Buckner MD Referring Provider: Dianne History of Present Illness Nancy Sue is a 63 year old female with a past history of colon cancer who was sent by Dr. Wing for evaluation and management of a lung nodule . My findings and recommendations will be communicated to the referring doctor by way of shared electronic medical record (or US mail). Patient was diagnosed with colon cancer in May. Staging workup has including PET scan, which showed mesenteric and RTP nodes, and a possible metastatic lung nodule. Patient scheduled to get FOxTROT neoadjuvant prior to surgery; lung nodule becomes important as it may trigger a metastectomy. Patient with no other significant medical history. Patient B/R [place]; a few jackson ago had a alf cold , with prolonged cough, went away on its own. Was treated with a few courses of antibiotics. Never smoker, no chronic lung disease. Review of Systems GENERAL: No weight loss, malaise or fevers., SEE HPI NECK: Negative for lumps, goiter, pain and significant neck swelling RESPIRATORY: Negative for cough, wheezing or shortness of breath. CARDIOVASCULAR: Negative for chest pain, leg swelling or palpitations. GI: See HPI MUSCULOSKELETAL: Negative for joint pain or swelling, back pain or muscle pain. HEMATOLOGY/LYMPHOLOGY Negative for prolonged bleeding, bruising easily or swollen nodes. ENDOCRINE: Negative for cold or heat intolerance, polyuria, polydipsia and goiter. NEURO: No history of headaches, syncope, paralysis, seizures or tremors All other reviewed and negative other than HPI. Past Medical History PAST MEDICAL HISTORY Diagnosis Date High cholesterol Past Surgical History PAST SURGICAL HISTORY Procedure Laterality Date ;TOTAL HYSTERECTMY TUBE(S) AND/OR OVARY LIPOMA (MEDIUM) Family History FAMILY HISTORY Problem Relation Age of Onset Stroke Mother COPD Father Heart Father Colon Cancer Brother Social Historyy Social History Tobacco Use Smoking status: Never Smokeless tobacco: Never Vaping Use Vaping Use: Never used Substance Use Topics Alcohol use: Yes Comment: socially Drug use: Never Current Medications Current Outpatient Medications on File Prior to Visit Medication Sig acetaminophen/diphenhydr amine (TYLENOL PM ORAL) Take by mouth. iv contrast (will be provided with radiology test) MRI Rectum Inject, intravenously, once for 1 dose. No IV access, insert saline lock prior to the beginning of sedation, infusion, injection of imaging exam. Discontinue saline lock post exam. If Pt has a central line or IVAD, may access for administration according to line specific nursing protocol. Once exam is complete flush line and de-access according to line specific nursing protocol in the MR contrast administration guidelines link. enteric contrast (will be provided with radiology test) MRI RECTUM WO/W. Administer, As Directed One Time Only, via Oral, Rectal, both Oral and Rectal, Enteric Tube, Stoma or Indwelling Catheter, Enteric Contrast as designated per enteric contrast guidelines levothyroxine (SYNTHROID) 50 mcg tablet Take 50 mcg by mouth once daily. Pramoxine-Hydrocortisone (ANALPRAM-HC) 1-1 % rectal cream Refill(s) 0, as directed Jwumc-1-UQW-EPA-Fish Oil (FISH OIL) 1,000 mg (120 mg-180 mg) cap Take 4,000 mg by mouth. No current facility-administered medications on file prior to visit. Imaging Please see below Physical Exam BP 163/86 Pulse 77 Ht 5' 4 (1.63m) Wt 225 lb (102.1kg) SpO2 97[ROOM AIR]% BMI 38.60 kg/(m2). GENERAL APPEARANCE: Patient in no acute distress. SKIN: No rashes or lesions. EYES: PERRLA, EOMI,, conjunctivae clear. OROPHARYNX: Lips, mucosa, and tongue normal. Teeth and gums normal. Oropharynx normal. NECK: Supple, no lymphadenopathy, no JVD. BACK: No CVA tenderness, no spinal tenderness LUNGS: Normal breath sounds, clear to auscultation, no wheezes, or crackles. HEART: Normal PMI, Regular rate/rhythm, normal heart sounds, and no murmurs. ABDOMEN: Soft, non tender, no palpable masses, normal bowel sounds, no abdominal bruits, No hepatosplenomegaly. EXTREMITIES: No edema or tenderness NEURO: Awake, alert and oriented x3, no involuntary motions. Assessment AND Plan Lung nodule. Reviewed CT images personally. Small RLL medial segment nodule, measuring 6mm. Nodule is round and smooth (more content not included)... Normal [facility] CT CHEST WO IVCONon 08-13-20 CT CHEST WO IVCON * * *Final Report* * * DATE OF EXAM: Aug 13 2023 7:53AM [facility] 0541 - CT CHEST WO IVCON / PROCEDURE REASON: Lung nodule * * * * Physician Interpretation * * * * EXAMINATION: CHEST CT WITHOUT CONTRAST CLINICAL HISTORY: Preoperative imaging of lung nodule. Technique: Spiral CT acquisition of the chest from the thoracic inlet to the upper abdomen without contrast. MQ: [id number]_6 CT Radiation dose: Integrated Dose-length product (DLP) for this visit = 531 mGy*cm CT Dose Reduction Employed: Automated exposure control (AEC) Comparison: Chest CT 06/22/2023. PET/CT 07/13/2023. RESULT: Limitations: None. Lines, tubes, and devices: None. Lung parenchyma and airways: There is a 8mm nodule in the medial right lower lobe (image 220), not substantially changed since prior exam, previously 7 mm which was not FDG avid on prior PET/CT. Additional sub-6 mm pulmonary nodules are also unchanged, including 5 mm right lower lobe nodule (image 244) and 2 mm subpleural right lower lobe nodule (image 159). No consolidation. The central airways are patent. Pleural space: No pleural effusion. No pleural thickening. Lower neck, lymph nodes, and mediastinum: The imaged thyroid gland is slightly heterogeneous noting subcentimeter hypodense nodule in the right thyroid lobe (image 1). No lymphadenopathy in the supraclavicular, axillary, mediastinal, or hilar regions. Calcified thoracic lymph nodes reflecting a sequela of prior granulomatous disease. Heart, pericardium, and thoracic vessels: Mild atherosclerotic calcifications of the thoracic aorta. The thoracic aorta and main pulmonary artery are normal in caliber. The cardiac chambers are normal in size. Mitral annular calcifications present. Mild coronary artery atherosclerotic calcifications are noted, although the study is not optimized for coronary assessment. No pericardial effusion or thickening. Bones and soft tissues: Degenerative changes of the thoracic spine. No destructive bone lesion. Chest wall is unremarkable. Upper abdomen: There is cholelithiasis. Hepatosplenic calcified granuloma is noted. The imaged upper abdomen is otherwise stable without acute abnormality. Product Safety Test Engineer (topogram) images: No additional findings. IMPRESSION: Stable to minimally increase in size of a 8 mm indeterminant right lower lobe nodule, previously 7 mm, which was not FDG avid on prior PET/CT. Additional sub-6 mm pulmonary nodules are unchanged. Continued attention on follow-up in 3 to 6 months is suggested. No thoracic lymphadenopathy. Admiralty Lawyer: DIANA Transcribe Date/Time: Aug 13 2023 12:20P Dictated by : VADIM FERREIRA MD This examination was interpreted and the report reviewed and electronically signed by: VADIM FERREIRA MD on Aug 13 2023 12:35PM EST [id number] Normal [facility] ECG COMPLETEon 08-13-2023 ECG COMPLETE Ventricular Rate : 6 7 BPM Atrial Rate : 67 BPM P-R Interval : 140 ms QRS Duration : 106 ms Q-T Interval : 420 ms QTC Calculation(Bazett) : 444 ms Calculated P [place] : 36 degrees Calculated R [place] : -66 degrees Calculated T [place] : 13 degrees Sinus rhythm Inferior infarct, old Abnormal ECG Confirmed by MD WOODWARD EMILE ([id number]) on 08/21/2023 1:22:11 PM NAME : NANCY SUE PID : [id number] : 1960 Gender : Female Race : ORD : [id number] Procedure Date : Aug 13 2023 08:09:07 Edit Date : Aug 21 2023 13:22:11 Diagnosis: Sinus rhythm Inferior infarct, old Abnormal ECG Confirmed by MD WOODWARD EMILE ([id number]) on 08/21/2023 1:22:11 PM Test Reason : [facility] Location : [facility] : [facility] Overread By : MD WOODWARD EMILE Edited By : MD WOODWARD EMILE Referred By : DAO DIXON Acquired by : CHELY RHODES [facility] HISTORY PHYSICALon 3 HISTORY PHYSICAL Normal [facility] HISTORY PHYSICAL HNO ID: [id number] Author: Dao Dixon MD Service: ? Author Type: Physician Type: HANDP Filed: 08/13/2023 10:36 AM Note Text: Interventional Pulmonary Consultation Date of Service: August 13, 2023 Patient: Nancy Sue Medical Record: [id number] Primary Care Physician: Jose Buckner MD Referring Provider: Dianne History of Present Illness Nancy Sue is a 63 year old female with a past history of colon cancer who was sent by Dr. Wing for evaluation and management of a lung nodule . My findings and recommendations will be communicated to the referring doctor by way of shared electronic medical record (or US mail). Patient was diagnosed with colon cancer in May. Staging workup has including PET scan, which showed mesenteric and RTP nodes, and a possible metastatic lung nodule. Patient scheduled to get FOxTROT neoadjuvant prior to surgery; lung nodule becomes important as it may trigger a metastectomy. Patient with no other significant medical history. Patient B/R [place]; a few jackson ago had a alf cold , with prolonged cough, went away on its own. Was treated with a few courses of antibiotics. Never smoker, no chronic lung disease. Review of Systems GENERAL: No weight loss, malaise or fevers., SEE HPI NECK: Negative for lumps, goiter, pain and significant neck swelling RESPIRATORY: Negative for cough, wheezing or shortness of breath. CARDIOVASCULAR: Negative for chest pain, leg swelling or palpitations. GI: See HPI MUSCULOSKELETAL: Negative for joint pain or swelling, back pain or muscle pain. HEMATOLOGY/LYMPHOLOGY Negative for prolonged bleeding, bruising easily or swollen nodes. ENDOCRINE: Negative for cold or heat intolerance, polyuria, polydipsia and goiter. NEURO: No history of headaches, syncope, paralysis, seizures or tremors All other reviewed and negative other than HPI. Past Medical History PAST MEDICAL HISTORY Diagnosis Date High cholesterol Past Surgical History PAST SURGICAL HISTORY Procedure Laterality Date ;TOTAL HYSTERECTMY TUBE(S) AND/OR OVARY LIPOMA (MEDIUM) Family History FAMILY HISTORY Problem Relation Age of Onset Stroke Mother COPD Father Heart Father Colon Cancer Brother Social Historyy Social History Tobacco Use Smoking status: Never Smokeless tobacco: Never Vaping Use Vaping Use: Never used Substance Use Topics Alcohol use: Yes Comment: socially Drug use: Never Current Medications Current Outpatient Medications on File Prior to Visit Medication Sig acetaminophen/diphenhydr amine (TYLENOL PM ORAL) Take by mouth. iv contrast (will be provided with radiology test) MRI Rectum Inject, intravenously, once for 1 dose. No IV access, insert saline lock prior to the beginning of sedation, infusion, injection of imaging exam. Discontinue saline lock post exam. If Pt has a central line or IVAD, may access for administration according to line specific nursing protocol. Once exam is complete flush line and de-access according to line specific nursing protocol in the MR contrast administration guidelines link. enteric contrast (will be provided with radiology test) MRI RECTUM WO/W. Administer, As Directed One Time Only, via Oral, Rectal, both Oral and Rectal, Enteric Tube, Stoma or Indwelling Catheter, Enteric Contrast as designated per enteric contrast guidelines levothyroxine (SYNTHROID) 50 mcg tablet Take 50 mcg by mouth once daily. Pramoxine-Hydrocortisone (ANALPRAM-HC) 1-1 % rectal cream Refill(s) 0, as directed Vyvyg-9-BUI-EPA-Fish Oil (FISH OIL) 1,000 mg (120 mg-180 mg) cap Take 4,000 mg by mouth. No current facility-administered medications on file prior to visit. Imaging Please see below Physical Exam BP 163/86 Pulse 77 Ht 5' 4 (1.63m) Wt 225 lb (102.1kg) SpO2 97[ROOM AIR]% BMI 38.60 kg/(m2). GENERAL APPEARANCE: Patient in no acute distress. SKIN: No rashes or lesions. EYES: PERRLA, EOMI,, conjunctivae clear. OROPHARYNX: Lips, mucosa, and tongue normal. Teeth and gums normal. Oropharynx normal. NECK: Supple, no lymphadenopathy, no JVD. BACK: No CVA tenderness, no spinal tenderness LUNGS: Normal breath sounds, clear to auscultation, no wheezes, or crackles. HEART: Normal PMI, Regular rate/rhythm, normal heart sounds, and no murmurs. ABDOMEN: Soft, non tender, no palpable masses, normal bowel sounds, no abdominal bruits, No hepatosplenomegaly. EXTREMITIES: No edema or tenderness NEURO: Awake, alert and oriented x3, no involuntary motions. Assessment AND Plan Lung nodule. Reviewed CT images personally. Small RLL medial segment nodule, measuring 6mm. Nodule is round and smooth bordered, and there is some corresponding right hilar (11R/12R) calcified adenopathy. The presence of calcified adenopathy suggests the nodule may be of benign origin; indeed the PET did not show much uptake in the nodule, which would support this. That isabela (more content not included)... Normal [facility] 08-10-2023 CNPN Telephone (AVXRPR) -------- NANCY SUE ([id number]) 1960 F Date Time Provider Department 08/10/23 [facility] your visit today, we recorded the following information about you: Nya Sterling RN 08/10/2023 9:22 AM Signed You are scheduled for a port placement, On 08/15/2023. You are to arrive at 2 pm [facility] Enter through [facility] entrance. Proceed to the 2nd floor Surgical Services Desk for check in. You can expect to be here for 3-5 hours. Diet: Do not eat any solid food after midnight the day of/night before your procedure. You may drink clear liquids until noon, which means black coffee, apple juice, black tea, or water only. Medications: Ok to take your cardiac, blood pressure, anti-seizure, and chronic pain medications with a sip of water, please take prior to arrival. Bring your current medication list. RADIOLOGY RECOMMENDS THESE MEDICATION RESTRICTIONS: Are you taking any of following medications? IF ok with your Prescribing Provider: Stop Plavix 5 days prior to this procedure. Stop Coumadin 5 days prior to this procedure. Stop Eliquis 48 Hours prior to this procedure. Stop Xarelto 24 Hours prior to this procedure. Hold Lovenox for 24 hours prior to this procedure. Stop oral hypoglycemic the day of this procedure Hold short acting insulin the day of procedure. Long acting insulin, take ? dose. If on mixed insulin - if BG> than 200 should take half the dose. If BG less < 200- don't take. Labs: Lab-work needs to be drawn? No.. Cast Iron Drain Pipe Layer/Transportation: How will you be arriving for your procedure? Private car. You will need a responsible adult to accompany you to and from the procedure. please call [phone] with any questions Allergies As of Date: 08/10/2023 Noted Allergy Reaction CRESTOR (ROSUVASTATIN) 06/05/2023 17 - Myalgia UHYTICJ-AEN-IFN REDUCTASE INHIBIT*06/18/2022 14 - Other: See Comments 17 - Myalgia 16 - Unknown Comments: myalgias Date Reviewed: 07/20/2023 Reviewed by: Nena Jarquin Ma - Fully Assessed Prescriptions as of 08/10/2023 - acetaminophen/diphenhydr amine (TYLENOL PM ORAL) Take by mouth. - iv contrast (will be provided with radiology test) MRI Rectum Inject, intravenously, once for 1 dose. No IV access, insert saline lock prior to the beginning of sedation, infusion, injection of imaging exam. Discontinue saline lock post exam. If Pt has a central line or IVAD, may access for administration according to line specific nursing protocol. Once exam is complete flush line and de-access according to line specific nursing protocol in the MR contrast administration guidelines link. - enteric contrast (will be provided with radiology test) MRI RECTUM WO/W. Administer, As Directed One Time Only, via Oral, Rectal, both Oral and Rectal, Enteric Tube, Stoma or Indwelling Catheter,? Enteric Contrast as designated per enteric contrast guidelines - levothyroxine (SYNTHROID) 50 mcg tablet Take 50 mcg by mouth once daily. - Pramoxine-Hydrocortisone (ANALPRAM-HC) 1-1 % rectal cream Refill(s) 0, as directed - Dhirs-2-TCJ-EPA-Fish Oil (FISH OIL) 1,000 mg (120 mg-180 mg) cap Take 4,000 mg by mouth. Problem List As Of Date 08/10/2023 Noted Resolved Rectal cancer (HCC) [C20] 06/08/2023 Malignant neoplasm of sigmoid colon (HCC) [C18.*07/03/2023 Encounter Status:Closed by NYA STERLING on 08/10/23 [facility] CNPKirstie 08-09-2023 CNPN Telephone (AVXRPR) -------- NANCY SUE ([id number]) 1960 F Date Time Provider Department 08/09/23 NEFTALY MONTEJO (RN) [facility] During your visit today, we recorded the following information about you: Neftaly Montejo RN 08/09/2023 9:19 AM Signed Called patient to give pre procedure instructions, no answer left voice message with call back number. Allergies As of Date: 08/09/2023 Noted Allergy Reaction CRESTOR (ROSUVASTATIN) 06/05/2023 17 - Myalgia GREHSCQ-IQO-DLE REDUCTASE INHIBIT*06/18/2022 14 - Other: See Comments 17 - Myalgia 16 - Unknown Comments: myalgias Date Reviewed: 07/20/2023 Reviewed by: Nena Jarquin Ma - Fully Assessed Reason for Visit: Radiology Pre Procedure Instructions [1506] Prescriptions as of 08/09/2023 - acetaminophen/diphenhydr amine (TYLENOL PM ORAL) Take by mouth. - iv contrast (will be provided with radiology test) MRI Rectum Inject, intravenously, once for 1 dose. No IV access, insert saline lock prior to the beginning of sedation, infusion, injection of imaging exam. Discontinue saline lock post exam. If Pt has a central line or IVAD, may access for administration according to line specific nursing protocol. Once exam is complete flush line and de-access according to line specific nursing protocol in the MR contrast administration guidelines link. - enteric contrast (will be provided with radiology test) MRI RECTUM WO/W. Administer, As Directed One Time Only, via Oral, Rectal, both Oral and Rectal, Enteric Tube, Stoma or Indwelling Catheter,? Enteric Contrast as designated per enteric contrast guidelines - levothyroxine (SYNTHROID) 50 mcg tablet Take 50 mcg by mouth once daily. - Pramoxine-Hydrocortisone (ANALPRAM-HC) 1-1 % rectal cream Refill(s) 0, as directed - Eiltd-2-XMV-EPA-Fish Oil (FISH OIL) 1,000 mg (120 mg-180 mg) cap Take 4,000 mg by mouth. Problem List As Of Date 08/09/2023 Noted Resolved Rectal cancer (HCC) [C20] 06/08/2023 Malignant neoplasm of sigmoid colon (HCC) [C18.*07/03/2023 Encounter Status:Closed by NEFTALY MONTEJO on 08/09/23 [facility] 07-26-2023 [facility] Consultation Noteon 07-23-20 Consultation Note [id number] [id number] F [facility] CNOVSPon 07-20-2023 CNOVSP [facility] 07-20-2023 [facility] MISC SEND OUT TST 1on 2022 REFERRAL LAB 1 [facility] Comment on above: Order Comment: Speci men Type: BLOOD SPECIMENOrdering Facility: [facility] Address: [address] [place] [address] Performed By: #### M ISC1 ####NON-INTERFACED REF LABSCLIA SEE SCANNED RESULTS TEST 1 NGS [facility] Comment on above: Order Comment: Speci men Type: BLOOD SPECIMENOrdering Facility: [facility] Address: [address] [place] [address] Performed By: #### M ISC1 ####NON-INTERFACED REF LABSCLIA SEE SCANNED RESULTS TEST RESULTS 1 View results in Scan rebeka Documents link when available. Normal [facility] Comment on above: Order Comment: Speci men Type: BLOOD SPECIMENOrdering Facility: [facility] Address: [address] [place] [address] Performed By: #### M ISC1 ####NON-INTERFACED REF LABSCLIA SEE SCANNED RESULTS CBC W Auto Differential pane l (Bld)on 07-13-2023 Basophils (Bld) [#/Vol] 0.04 10*3/uL Normal <0.11 [facility] Comment on above: Order Comment: Speci men Type: BLOOD SPECIMENOrdering Facility: [facility] Address: [address] [place] [address] Performed By: #### 5 7021-8 ####[facility] LABCLIA [id number] [place] [address] Basophils/100 WBC (Bld) 0.8 % Normal [facility] Comment on above: Order Comment: Speci men Type: BLOOD SPECIMENOrdering Facility: [facility] Address: [address] [place] [address] Performed By: #### 5 7021-8 ####[facility] LABCLIA [id number] [place] [address] Differential cell count method Nom (Bld) Auto Normal [facility] Comment on above: Order Comment: Speci men Type: BLOOD SPECIMENOrdering Facility: [facility] Address: [address] [place] [address] Performed By: #### 5 7021-8 ####[facility] LABCLIA [id number] [place] [address] Eosinophils (Bld) [#/Vol] 0.23 10*3/uL Normal <0.46 [facility] Comment on above: Order Comment: Speci men Type: BLOOD SPECIMENOrdering Facility: [facility] Address: [address] [place] [address] Performed By: #### 5 7021-8 ####[facility] LABCLIA [id number] [place] [address] Eosinophils/100 WBC (Bld) 4.7 % Normal [facility] Comment on above: Order Comment: Speci men Type: BLOOD SPECIMENOrdering Facility: [facility] Address: [address] [place] [address] Performed By: #### 5 7021-8 ####[facility] LABCLIA [id number] [place] [address] Erythrocyte distribution width (RBC) [Ratio] 13.7 % Normal 11.5-15.0 [facility] Comment on above: Order Comment: Speci men Type: BLOOD SPECIMENOrdering Facility: [facility] Address: [address] [place] [address] Performed By: #### 5 7021-8 ####[facility] LABCLIA [id number] [place] [address] Hematocrit (Bld) [Volume fraction] 39.6 % Normal 36.0-46.0 [facility] Comment on above: Order Comment: Speci men Type: BLOOD SPECIMENOrdering Facility: [facility] Address: [address] [place] [address] Performed By: #### 5 7021-8 ####[facility] LABCLIA [id number] [place] [address] Hemoglobin (Bld) [Mass/Vol] 13.0 g/dL Normal 11.5-15.5 [facility] Comment on above: Order Comment: Speci men Type: BLOOD SPECIMENOrdering Facility: [facility] Address: [address] [place] [address] Performed By: #### 5 7021-8 ####[facility] LABCLIA [id number] [place] [address] Immature granulocytes (Bld) [#/Vol] 10*3/uL Normal <0.10 [facility] Comment on above: Order Comment: Speci men Type: BLOOD SPECIMENOrdering Facility: [facility] Address: [address] [place] [address] Performed By: #### 5 7021-8 ####[facility] LABCLIA [id number] [place] [address] Immature granulocytes/100 WBC (Bld) 0.2 % Normal [facility] Comment on above: Order Comment: Speci men Type: BLOOD SPECIMENOrdering Facility: [facility] Address: [address] [place] [address] Performed By: #### 5 7021-8 ####[facility] LABCLIA [id number] [place] [address] Lymphocytes (Bld) [#/Vol] 2.25 10*3/uL Normal 1.00-4.00 [facility] Comment on above: Order Comment: Speci men Type: BLOOD SPECIMENOrdering Facility: [facility] Address: [address] [place] [address] Performed By: #### 5 7021-8 ####[facility] LABIA [id number] [place] [address] Lymphocytes/100 WBC (Bld) 45.7 % Normal [facility] Comment on above: Order Comment: Speci men Type: BLOOD SPECIMENOrdering Facility: [facility] Address: [address] [place] [address] Performed By: #### 5 7021-8 ####[facility] LABCLIA [id number] [place] [address] MCH (RBC) [Entitic mass] 28.6 pg Normal 26.0-34.0 [facility] Comment on above: Order Comment: Speci men Type: BLOOD SPECIMENOrdering Facility: [facility] Address: [address] [place] [address] Performed By: #### 5 7021-8 ####[facility] LABIA [id number] [place] [address] MCHC (RBC) [Mass/Vol] 32.8 g/dL Normal 30.5-36.0 [facility] Comment on above: Order Comment: Speci men Type: BLOOD SPECIMENOrdering Facility: [facility] Address: [address] [place] [address] Performed By: #### 5 7021-8 ####[facility] LABCLIA [id number] [place] [address] MCV (RBC) [Entitic vol] 87.2 fL Normal 80.0-100.0 [facility] Comment on above: Order Comment: Speci men Type: BLOOD SPECIMENOrdering Facility: [facility] Address: [address] [place] [address] Performed By: #### 5 7021-8 ####[facility] LABCLIA [id number] [place] [address] Monocytes (Bld) [#/Vol] 0.30 10*3/uL Normal <0.87 [facility] Comment on above: Order Comment: Speci men Type: BLOOD SPECIMENOrdering Facility: [facility] Address: [address] [place] [address] Performed By: #### 5 7021-8 ####[facility] LABCLIA [id number] [place] [address] Monocytes/100 WBC (Bld) 6.1 % Normal [facility] Comment on above: Order Comment: Speci men Type: BLOOD SPECIMENOrdering Facility: [facility] Address: [address] [place] [address] Performed By: #### 5 7021-8 ####[facility] LABCLIA [id number] [place] [address] Neutrophils (Bld) [#/Vol] 2.09 10*3/uL Normal 1.45-7.50 [facility] Comment on above: Order Comment: Speci men Type: BLOOD SPECIMENOrdering Facility: [facility] Address: [address] [place] [address] Performed By: #### 5 7021-8 ####[facility] LABCLIA [id number] [place] [address] Neutrophils/100 WBC (Bld) 42.5 % Normal [facility] Comment on above: Order Comment: Speci men Type: BLOOD SPECIMENOrdering Facility: [facility] Address: [address] [place] [address] Performed By: #### 5 7021-8 ####[facility] LABCLIA [id number] [place] [address] Nucleated RBC (Bld) [#/Vol] 10*3/uL Normal <0.01 [facility] Comment on above: Order Comment: Speci men Type: BLOOD SPECIMENOrdering Facility: [facility] Address: [address] [place] [address] Performed By: #### 5 7021-8 ####[facility] LABCLIA [id number] [place] [address] Nucleated RBC/100 WBC (Bld) [Ratio] 0.0 /100 WBC Normal [facility] Comment on above: Order Comment: Speci men Type: BLOOD SPECIMENOrdering Facility: [facility] Address: [address] [place] [address] Performed By: #### 5 7021-8 ####[facility] LABCLIA [id number] [place] [address] Platelet mean volume (Bld) [Entitic vol] 11.7 fL Normal 9.0-12.7 [facility] Comment on above: Order Comment: Speci men Type: BLOOD SPECIMENOrdering Facility: [facility] Address: [address] [place] [address] Performed By: #### 5 7021-8 ####[facility] LABCLIA [id number] [place] [address] Platelets (Bld) [#/Vol] 161 10*3/uL Normal 150-400 [facility] Comment on above: Order Comment: Speci men Type: BLOOD SPECIMENOrdering Facility: [facility] Address: [address] [place] [address] Performed By: #### 5 7021-8 ####[facility] LABCLIA [id number] [place] [address] RBC (Bld) [#/Vol] 4.54 10*6/uL Normal 3.90-5.20 [facility] Comment on above: Order Comment: Speci men Type: BLOOD SPECIMENOrdering Facility: [facility] Address: [address] [place] [address] Performed By: #### 5 7021-8 ####[facility] LABCLIA [id number] [place] [address] WBC (Bld) [#/Vol] 4.92 10*3/uL Normal 3.70-11.00 [facility] Comment on above: Order Comment: Speci men Type: BLOOD SPECIMENOrdering Facility: [facility] Address: [address] [place] [address] Performed By: #### 5 7021-8 ####[facility] LABCLIA [id number] [place] [address] Comprehensive metabolic 2000 panelon 07-13-2023 Albumin [Mass/Vol] 4.8 g/dL Normal 3.9-4.9 [facility] [place] [facility] Comment on above: Order Comment: Speci men Type: BLOOD SPECIMENOrdering Facility: [facility] Address: [address] [place] [address] Performed By: #### 2 4323-8 ####[facility] LABCLIA [id number] [place] [address] ALP [Catalytic activity/Vol] 70 U/L Normal 34-123 [facility] Comment on above: Order Comment: Speci men Type: BLOOD SPECIMENOrdering Facility: [facility] Address: [address] [place] [address] Performed By: #### 2 4323-8 ####[facility] LABCLIA [id number] [place] [address] ALT [Catalytic activity/Vol] 36 U/L Normal 7-38 [facility] Comment on above: Order Comment: Speci men Type: BLOOD SPECIMENOrdering Facility: [facility] Address: [facility] [place] [address] Performed By: #### 2 4323-8 ####[facility] LABCLIA [id number] [place] [address] Anion gap [Moles/Vol] 10 mmol/L Normal 9-18 [facility] Comment on above: Order Comment: Speci men Type: BLOOD SPECIMENOrdering Facility: [facility] Address: [address] [place] [address] Performed By: #### 2 4323-8 ####[facility] LABCLIA [id number] [place] [address] AST [Catalytic activity/Vol] 35 U/L Normal 13-35 [facility] Comment on above: Order Comment: Speci men Type: BLOOD SPECIMENOrdering Facility: [facility] Address: [address] [place] [address] Performed By: #### 2 4323-8 ####[facility] LABCLIA [id number] [place] [address] Bilirubin [Mass/Vol] 0.3 mg/dL Normal 0.2-1.3 [facility] Comment on above: Order Comment: Speci men Type: BLOOD SPECIMENOrdering Facility: [facility] Address: [address] [place] [address] Performed By: #### 2 4323-8 ####[facility] LABCLIA [id number] [place] [address] Calcium [Mass/Vol] 9.4 mg/dL Normal 8.5-10.2 [facility] [place] [facility] Comment on above: Order Comment: Speci men Type: BLOOD SPECIMENOrdering Facility: [facility] Address: [address] [place] [address] Performed By: #### 2 4323-8 ####[facility] LABCLIA [id number] [place] [address] Chloride [Moles/Vol] 104 mmol/L Normal 97-105 [facility] Comment on above: Order Comment: Speci men Type: BLOOD SPECIMENOrdering Facility: [facility] Address: [address] [place] [address] Performed By: #### 2 4323-8 ####[facility] LABCLIA [id number] [place] [address] CO2 [Moles/Vol] 27 mmol/L Normal 22-30 [facility] Comment on above: Order Comment: Speci men Type: BLOOD SPECIMENOrdering Facility: [facility] Address: [address] [place] [address] Performed By: #### 2 4323-8 ####[facility] LABCLIA [id number] [place] [address] Creatinine [Mass/Vol] 0.91 mg/dL Normal 0.58-0.96 [facility] Comment on above: Order Comment: Speci men Type: BLOOD SPECIMENOrdering Facility: [facility] Address: [address] [place] [address] Performed By: #### 2 4323-8 ####[facility] LABCLIA [id number] [place] [address] Creatinine and Glomerular filtration rate.predicted panel (S/P/Bld) 71 mL/min/1.73m??? Normal >=60 [facility] Comment on above: Order Comment: Speci men Type: BLOOD SPECIMENOrdering Facility: [facility] Address: [address] [place] [address] Result Comment: Kelsey mated Glomerular Filtration Rate (eGFR) is calculated using the 2020 CKD-EPI creatinine equation. This equation utilizes serum creatinine, sex, and age as parameters. The creatinine assay has traceable calibration to isotope dilution-mass spectrometry. Refer to KDIGO guidelines for clinical interpretation. In patients with unstable renal function, e.g. those with acute kidney injury, the eGFR may not accurately reflect actual GFR. Performed By: #### 2 4323-8 ####[facility] LABCLIA [id number] [place] [address] Glucose [Mass/Vol] 107 mg/dL High 74-99 [facility] [place] [facility] Comment on above: Order Comment: Speci men Type: BLOOD SPECIMENOrdering Facility: [facility] Address: [address] [place] [address] Result Comment: The [place] Diabetes [employer] (ADA) provides guidance for cutoff values for fasting glucose and random glucose. The ADA defines fasting as no caloric intake for at least 8 hours. Fasting plasma glucose results between 100 to 125 mg/dL indicate increased risk for diabetes (prediabetes).Fasting plasma glucose results greater than or equal to 126 mg/dL meet the criteria for diagnosis of diabetes. In the absence of unequivocal hyperglycemia, results should be confirmed by repeat testing. In a patient with classic symptoms of hyperglycemia or hyperglycemic crisis, random plasma glucose results greater than or equal to 200 mg/dL meet the criteria for diagnosis of diabetes.Reference: Standards of Medical Care in Diabetes 2016, [place] [employer]. Diabetes Care. 2016.39(Suppl 1). Performed By: #### 2 4323-8 ####[facility] LABCLIA [id number] [place] [address] Potassium [Moles/Vol] 4.2 mmol/L Normal 3.7-5.1 [facility] Comment on above: Order Comment: Speci men Type: BLOOD SPECIMENOrdering Facility: [facility] Address: [address] [place], [place] [address] Performed By: #### 2 4323-8 ####[facility] LABCLIA [id number] [place] [address] Protein [Mass/Vol] 7.3 g/dL Normal 6.3-8.0 [facility] [place] [facility] Comment on above: Order Comment: Speci men Type: BLOOD SPECIMENOrdering Facility: [facility] Address: [address] [place], [place] [address] Performed By: #### 2 4323-8 ####[facility] LABCLIA [id number] [place] [address] Sodium [Moles/Vol] 141 mmol/L Normal 136-144 [facility] [place] [facility] Comment on above: Order Comment: Speci men Type: BLOOD SPECIMENOrdering Facility: [facility] Address: [address] [place] [address] Performed By: #### 2 4323-8 ####[facility] LABCLIA [id number] [place] [address] Urea nitrogen [Mass/Vol] 20 mg/dL Normal 03-30 [facility] Comment on above: Order Comment: Speci men Type: BLOOD SPECIMENOrdering Facility: [facility] Address: [address] [place] [address] Performed By: #### 2 4323-8 ####[facility] LABCLIA [id number] [place] [address] NM PET/CT SKULL-THIGH INITon 07-13-2023 NM PET/CT SKULL-THIGH INIT Normal [facility] CT PELVIS W IVCONon 07-06-20 CT PELVIS W IVCON Normal [facility] CNPNon 07-04-2023 CNPN Normal [facility] CEA BLDon 07-02-2023 Carcinoembryonic Ag [Mass/Vol] 1.5 ng/mL <=2.9 ng/mL [facility] ERYTHROPOIETIN/EPOon 023 Erythropoietin (EPO) Qn 10.5 mIU/mL 2.6 - 18.5 mIU/mL [facility] FERRITIN BLDon 06-30-2023 Ferritin [Mass/Vol] 87.7 ng/mL 14.7 - 2 05.1 ng/mL [facility] FOLATE SERUMon 06-30-2023 Folate [Mass/Vol] 6.0 ng/mL >4.7 ng/mL [facility] Iron and Iron binding capaci ty panelon 06-30-2023 Iron [Mass/Vol] 53 ug/dL 41 - 186 ug/dL [facility] Iron binding capacity [Mass/Vol] 359 ug/dL 232 - 386 ug/dL [facility] Iron/TIBC [Molar ratio] 14.8 % Low 15.0 - 57.0 % [facility] VITAMIN B12 BLOODon 06-30-20 Cobalamin (Vitamin B12) [Mass/Vol] 422 pg/mL 232 - 1,245 pg/mL [facility] CBC W Auto Differential pane l (Bld)on 06-29-2023 Basophils (Bld) [#/Vol] 0.03 10*3/uL Normal <0.11 [facility] Comment on above: Order Comment: Speci men Type: BLOOD SPECIMENOrdering Facility: [facility] Address: [address] [place] [address] Performed By: #### 1 4196-0, 73229-9 ####[facility] LABCLIA [id number] [place] [address] Basophils/100 WBC (Bld) 0.7 % Normal [facility] Comment on above: Order Comment: Speci men Type: BLOOD SPECIMENOrdering Facility: [facility] Address: [address] [place] [address] Performed By: #### 1 4196-0, 99600-9 ####[facility] LABCLIA [id number] [place] [address] Differential cell count method Nom (Bld) Auto Normal [facility] Comment on above: Order Comment: Speci men Type: BLOOD SPECIMENOrdering Facility: [facility] Address: [address] [place] [address] Performed By: #### 1 4196-0, 67040-0 ####[facility] LABCLIA [id number] [place] [address] Eosinophils (Bld) [#/Vol] 0.16 10*3/uL Normal <0.46 [facility] Comment on above: Order Comment: Speci men Type: BLOOD SPECIMENOrdering Facility: [facility] Address: [address] [place] [address] Performed By: #### 1 4196-0, 27058-9 ####[facility] LABCLIA [id number] [place] [address] Eosinophils/100 WBC (Bld) 3.5 % Normal [facility] Comment on above: Order Comment: Speci men Type: BLOOD SPECIMENOrdering Facility: [facility] Address: [facility] [place] [address] Performed By: #### 1 4196-0, 40904-0 ####[facility] LABCLIA [id number] [place] [address] Erythrocyte distribution width (RBC) [Ratio] 13.3 % Normal 11.5-15.0 [facility] Comment on above: Order Comment: Speci men Type: BLOOD SPECIMENOrdering Facility: [facility] Address: [address] [place] [address] Performed By: #### 1 4196-0, 46346-1 ####[facility] LABCLIA [id number] [place] [address] Hematocrit (Bld) [Volume fraction] 37.5 % Normal 36.0-46.0 [facility] Comment on above: Order Comment: Speci men Type: BLOOD SPECIMENOrdering Facility: [facility] Address: [address] [place] [address] Performed By: #### 1 4196-0, 76046-7 ####[facility] LABCLIA [id number] [place] [address] Hemoglobin (Bld) [Mass/Vol] 12.2 g/dL Normal 11.5-15.5 [facility] Comment on above: Order Comment: Speci men Type: BLOOD SPECIMENOrdering Facility: [facility] Address: [address] [place] [address] Performed By: #### 1 4196-0, ####[facility] LABCLIA [id number] [place] [address] Immature granulocytes (Bld) [#/Vol] 10*3/uL Normal <0.10 [facility] Comment on above: Order Comment: Speci men Type: BLOOD SPECIMENOrdering Facility: [facility] Address: [address] [place] [address] Performed By: #### 1 4196-0, 91860-5 ####[facility] LABCLIA [id number] [place] [address] Immature granulocytes/100 WBC (Bld) 0.0 % Normal [facility] Comment on above: Order Comment: Speci men Type: BLOOD SPECIMENOrdering Facility: [facility] Address: [address] [place] [address] Performed By: #### 1 4196-0, 40053-9 ####[facility] LABCLIA [id number] [place] [address] Lymphocytes (Bld) [#/Vol] 1.84 10*3/uL Normal 1.00-4.00 [facility] Comment on above: Order Comment: Speci men Type: BLOOD SPECIMENOrdering Facility: [facility] Address: [address] [place] [address] Performed By: #### 1 4196-0, 44724-2 ####[facility] LABCLIA [id number] [place] [address] Lymphocytes/100 WBC (Bld) 40.5 % Normal [facility] Comment on above: Order Comment: Speci men Type: BLOOD SPECIMENOrdering Facility: [facility] Address: [address] [place] [address] Performed By: #### 1 4196-0, 08710-7 ####[facility] LABCLIA [id number] [place] [address] MCH (RBC) [Entitic mass] 28.7 pg Normal 26.0-34.0 [facility] Comment on above: Order Comment: Speci men Type: BLOOD SPECIMENOrdering Facility: [facility] Address: [address] [place] [address] Performed By: #### 1 4196-0, 65301-3 ####[facility] LABCLIA [id number] [place] [address] MCHC (RBC) [Mass/Vol] 32.5 g/dL Normal 30.5-36.0 [facility] Comment on above: Order Comment: Speci men Type: BLOOD SPECIMENOrdering Facility: [facility] Address: [address] [place] [address] Performed By: #### 1 4196-0, 85775-5 ####[facility] LABIA [id number] [place] [address] MCV (RBC) [Entitic vol] 88.2 fL Normal 80.0-100.0 [facility] Comment on above: Order Comment: Speci men Type: BLOOD SPECIMENOrdering Facility: [facility] Address: [address] [place] [address] Performed By: #### 1 4196-0, 25117-3 ####[facility] LABIA [id number] [place] [address] Monocytes (Bld) [#/Vol] 0.28 10*3/uL Normal <0.87 [facility] Comment on above: Order Comment: Speci men Type: BLOOD SPECIMENOrdering Facility: [facility] Address: [address] [place] [address] Performed By: #### 1 4196-0, 18443-0 ####[facility] LABIA [id number] [place] [address] Monocytes/100 WBC (Bld) 6.2 % Normal [facility] Comment on above: Order Comment: Speci men Type: BLOOD SPECIMENOrdering Facility: [facility] Address: [address] [place] [address] Performed By: #### 1 4196-0, 29916-0 ####[facility] LABIA [id number] [place] [address] Neutrophils (Bld) [#/Vol] 2.23 10*3/uL Normal 1.45-7.50 [facility] Comment on above: Order Comment: Speci men Type: BLOOD SPECIMENOrdering Facility: [facility] Address: [address] [place] [address] Performed By: #### 1 4196-0, 24595-8 ####[facility] LABCLIA [id number] [place] [address] Neutrophils/100 WBC (Bld) 49.1 % Normal [facility] Comment on above: Order Comment: Speci men Type: BLOOD SPECIMENOrdering Facility: [facility] Address: [address] [place] [address] Performed By: #### 1 4196-0, 82005-8 ####[facility] LABCLIA [id number] [place] [address] Nucleated RBC (Bld) [#/Vol] 10*3/uL Normal <0.01 [facility] Comment on above: Order Comment: Speci men Type: BLOOD SPECIMENOrdering Facility: [facility] Address: [address] [place] [address] Performed By: #### 1 4196-0, 39783-3 ####[facility] LABCLIA [id number] [place] [address] Nucleated RBC/100 WBC (Bld) [Ratio] 0.0 /100 WBC Normal [facility] Comment on above: Order Comment: Speci men Type: BLOOD SPECIMENOrdering Facility: [facility] Address: [address] [place] [address] Performed By: #### 1 4196-0, 92992-2 ####[facility] LABCLIA [id number] [place] [address] Platelet mean volume (Bld) [Entitic vol] 10.9 fL Normal 9.0-12.7 [facility] Comment on above: Order Comment: Speci men Type: BLOOD SPECIMENOrdering Facility: [facility] Address: [address] [place] [address] Performed By: #### 1 4196-0, 91020-1 ####[facility] LABCLIA [id number] [place] [address] Platelets (Bld) [#/Vol] 139 10*3/uL Low 150-400 [facility] Comment on above: Order Comment: Speci men Type: BLOOD SPECIMENOrdering Facility: [facility] Address: [address] [place] [address] Result Comment: Resu lts checked and verified.No clot detected. Performed By: #### 1 4196-0, 68230-0 ####[facility] LABCLIA [id number] [place] [address] RBC (Bld) [#/Vol] 4.25 10*6/uL Normal 3.90-5.20 [facility] Comment on above: Order Comment: Speci men Type: BLOOD SPECIMENOrdering Facility: [facility] Address: [address] [place] [address] Performed By: #### 1 4196-0, 77924-6 ####[facility] LABCLIA [id number] [place] [address] WBC (Bld) [#/Vol] 4.54 10*3/uL Normal 3.70-11.00 [facility] Comment on above: Order Comment: Speci men Type: BLOOD SPECIMENOrdering Facility: [facility] Address: [address] [place] [address] Performed By: #### 1 4196-0, 67126-8 ####[facility] LABCLIA [id number] [place] [address] Basophils (Bld) [#/Vol] 0.03 10*3/uL <0.11 k/uL [facility] Basophils/100 WBC (Bld) 0.7 % [facility] Differential cell count method Nom (Bld) Auto [facility] Eosinophils (Bld) [#/Vol] 0.16 10*3/uL <0.46 k/uL [facility] Eosinophils/100 WBC (Bld) 3.5 % [facility] Erythrocyte distribution width (RBC) [Ratio] 13.3 % 11.5 - 15.0 % [facility] Hematocrit (Bld) [Volume fraction] 37.5 % 36.0 - 46.0 % [facility] Hemoglobin (Bld) [Mass/Vol] 12.2 g/dL 11.5 - 15.5 g/dL [facility] Immature granulocytes (Bld) [#/Vol] <0.10 k/uL [facility] Immature granulocytes/100 WBC (Bld) 0.0 % [facility] Lymphocytes (Bld) [#/Vol] 1.84 10*3/uL 1.00 - 4.00 k/uL [facility] Lymphocytes/100 WBC (Bld) 40.5 % [facility] MCH (RBC) [Entitic mass] 28.7 pg 26.0 - 34.0 pg [facility] MCHC (RBC) [Mass/Vol] 32.5 g/dL 30.5 - 36.0 g/dL [facility] MCV (RBC) [Entitic vol] 88.2 fL 80.0 - 100.0 fL [facility] Monocytes (Bld) [#/Vol] 0.28 10*3/uL <0.87 k/uL [facility] Monocytes/100 WBC (Bld) 6.2 % [facility] Neutrophils (Bld) [#/Vol] 2.23 10*3/uL 1.45 - 7.50 k/uL [facility] Neutrophils/100 WBC (Bld) 49.1 % [facility] Nucleated RBC (Bld) [#/Vol] <0.01 k/uL [facility] Nucleated RBC/100 WBC (Bld) [Ratio] 0.0 /100 WBC [facility] Platelet mean volume (Bld) [Entitic vol] 10.9 fL 9.0 - 12.7 fL [facility] Platelets (Bld) [#/Vol] 139 10*3/uL Low 150 - 400 k/uL [facility] RBC (Bld) [#/Vol] 4.25 10*6/uL 3.90 - 5.2 0 m/uL [facility] WBC (Bld) [#/Vol] 4.54 10*3/uL 3.70 - 11. 00 k/uL [facility] CEA SerPl-mCncon 06-29-2023 Carcinoembryonic Ag [Mass/Vol] 1.5 ng/mL Normal <=2.9 [facility] Comment on above: Order Comment: Speci men Type: BLOOD SPECIMENOrdering Facility: [facility] Address: [address] [place] [address] Result Comment: Carc inoembryonic antigen test is used as an aid in monitoring response to treatment or recurrence in patients with established colorectal, breast, lung, prostatic, pancreatic, and ovarian carcinomas. Clinical correlation is required.The Carcinoembryonic antigen test was performed using the Candido Kwan Unicel DXI paramagnetic particle chemiluminescent immunoassay method. Results obtained with different assay methods or kits cannot be used interchangeably. Performed By: #### 2 039-6, 44125-3 ####[facility] LABCLIA [id number] [place] [address] [place] CNOVSPon 06-29-2023 CNOVSP Normal [facility] CNPNon 06-29-2023 CNPN Normal [facility] Comprehensive metabolic 2000 panelon 06-29-2023 Albumin [Mass/Vol] 4.3 g/dL Normal 3.9-4.9 [facility] Comment on above: Order Comment: Speci men Type: BLOOD SPECIMENOrdering Facility: [facility] Address: [address] [place] [address] Performed By: #### 2 4323-8 ####[facility] LABCLIA [id number] [place] [address] ALP [Catalytic activity/Vol] 67 U/L Normal 34-123 [facility] Comment on above: Order Comment: Speci men Type: BLOOD SPECIMENOrdering Facility: [facility] Address: [address] [place] [address] Performed By: #### 2 4323-8 ####[facility] LABCLIA [id number] [place] [address] ALT [Catalytic activity/Vol] 30 U/L Normal 7-38 [facility] Comment on above: Order Comment: Speci men Type: BLOOD SPECIMENOrdering Facility: [facility] Address: [address] [place] [address] Performed By: #### 2 4323-8 ####[facility] LABCLIA [id number] [place] [address] Anion gap [Moles/Vol] 11 mmol/L Normal 9-18 [facility] Comment on above: Order Comment: Speci men Type: BLOOD SPECIMENOrdering Facility: [facility] Address: [address] [place] [address] Performed By: #### 2 4323-8 ####[facility] LABCLIA [id number] [place] [address] AST [Catalytic activity/Vol] 34 U/L Normal 13-35 [facility] Comment on above: Order Comment: Speci men Type: BLOOD SPECIMENOrdering Facility: [facility] Address: [address] [place] [address] Performed By: #### 2 4323-8 ####[facility] LABCLIA [id number] [place] [address] Bilirubin [Mass/Vol] 0.4 mg/dL Normal 0.2-1.3 [facility] Comment on above: Order Comment: Speci men Type: BLOOD SPECIMENOrdering Facility: [facility] Address: [address] [place] [address] Performed By: #### 2 4323-8 ####[facility] LABCLIA [id number] [place] [address] Calcium [Mass/Vol] 9.4 mg/dL Normal 8.5-10.2 [facility] Comment on above: Order Comment: Speci men Type: BLOOD SPECIMENOrdering Facility: [facility] Address: [address] [place] [address] Performed By: #### 2 4323-8 ####[facility] LABCLIA [id number] [place] [address] Chloride [Moles/Vol] 105 mmol/L Normal 97-105 [facility] Comment on above: Order Comment: Speci men Type: BLOOD SPECIMENOrdering Facility: [facility] Address: [address] [place] [address] Performed By: #### 2 4323-8 ####[facility] LABCLIA [id number] [place] [address] CO2 [Moles/Vol] 27 mmol/L Normal 22-30 [facility] Comment on above: Order Comment: Speci men Type: BLOOD SPECIMENOrdering Facility: [facility] Address: [address] [place] [address] Performed By: #### 2 4323-8 ####[facility] LABCLIA [id number] [place] [address] Creatinine [Mass/Vol] 0.86 mg/dL Normal 0.58-0.96 [facility] Comment on above: Order Comment: Speci men Type: BLOOD SPECIMENOrdering Facility: [facility] Address: [address] [place] [address] Performed By: #### 2 4323-8 ####[facility] LABCLIA [id number] [place] [address] Creatinine and Glomerular filtration rate.predicted panel (S/P/Bld) 76 mL/min/1.73m??? Normal >=60 [facility] Comment on above: Order Comment: Speci men Type: BLOOD SPECIMENOrdering Facility: [facility] Address: [address] [place] [address] Result Comment: Kelsey mated Glomerular Filtration Rate (eGFR) is calculated using the 2020 CKD-EPI creatinine equation. This equation utilizes serum creatinine, sex, and age as parameters. The creatinine assay has traceable calibration to isotope dilution-mass spectrometry. Refer to KDIGO guidelines for clinical interpretation. In patients with unstable renal function, e.g. those with acute kidney injury, the eGFR may not accurately reflect actual GFR. Performed By: #### 2 4323-8 ####[facility] LABCLIA [id number] [place] [address] Glucose [Mass/Vol] 112 mg/dL High 74-99 [facility] Comment on above: Order Comment: Speci men Type: BLOOD SPECIMENOrdering Facility: [facility] Address: [address] [place] [address] Result Comment: The [place] Diabetes Association (ADA) provides guidance for cutoff values for fasting glucose and random glucose. The ADA defines fasting as no caloric intake for at least 8 hours. Fasting plasma glucose results between 100 to 125 mg/dL indicate increased risk for diabetes (prediabetes).Fasting plasma glucose results greater than or equal to 126 mg/dL meet the criteria for diagnosis of diabetes. In the absence of unequivocal hyperglycemia, results should be confirmed by repeat testing. In a patient with classic symptoms of hyperglycemia or hyperglycemic crisis, random plasma glucose results greater than or equal to 200 mg/dL meet the criteria for diagnosis of diabetes.Reference: Standards of Medical Care in Diabetes 2016, [place] Diabetes Association. Diabetes Care. 2016.39(Suppl 1). Performed By: #### 2 4323-8 ####[facility] LABCLIA [id number] [place] [address] Potassium [Moles/Vol] 4.4 mmol/L Normal 3.7-5.1 [facility] Comment on above: Order Comment: Speci men Type: BLOOD SPECIMENOrdering Facility: [facility] Address: [address] [place] [address] Performed By: #### 2 4323-8 ####[facility] LABIA [id number] [place] [address] Protein [Mass/Vol] 6.9 g/dL Normal 6.3-8.0 [facility] Comment on above: Order Comment: Speci men Type: BLOOD SPECIMENOrdering Facility: [facility] Address: [address] [place] [address] Performed By: #### 2 4323-8 ####[facility] LABCLIA [id number] [place] [address] Sodium [Moles/Vol] 143 mmol/L Normal 136-144 [facility] Comment on above: Order Comment: Speci men Type: BLOOD SPECIMENOrdering Facility: [facility] Address: [address] [place] [address] Performed By: #### 2 4323-8 ####[facility] LABCLIA [id number] [place] [id number] Urea nitrogen [Mass/Vol] 12 mg/dL Normal 7-21 [facility] Comment on above: Order Comment: Speci men Type: BLOOD SPECIMENOrdering Facility: [facility] Address: [place] [address] Performed By: #### 2 4323-8 ####[facility] LABCLIA [id number] [place] [address] Albumin [Mass/Vol] 4.3 g/dL 3.9 - 4.9 g/dL [facility] ALP [Catalytic activity/Vol] 67 U/L 34 - 123 U/L [facility] ALT [Catalytic activity/Vol] 30 U/L 7 - 38 U/L [facility] Anion gap [Moles/Vol] 11 mmol/L 9 - 18 mmol/L [facility] AST [Catalytic activity/Vol] 34 U/L 13 - 35 U/L [facility] Bilirubin [Mass/Vol] 0.4 mg/dL 0.2 - 1 .3 mg/dL [facility] Calcium [Mass/Vol] 9.4 mg/dL 8.5 - 10. 2 mg/dL [facility] Chloride [Moles/Vol] 105 mmol/L 97 - 10 5 mmol/L [facility] CO2 [Moles/Vol] 27 mmol/L 22 - 30 mmol/L [facility] Creatinine [Mass/Vol] 0.86 mg/dL 0.58 - 0.96 mg/dL [facility] Estimated Glomerular Filtration Rate 76 mL/min/1.73m >=60 mL/min/1.73m [facility] Glucose [Mass/Vol] 112 mg/dL High 74 - 99 mg/dL [facility] Potassium [Moles/Vol] 4.4 mmol/L 3.7 - 5.1 mmol/L [facility] Protein [Mass/Vol] 6.9 g/dL 6.3 - 8.0 g/dL [facility] Sodium [Moles/Vol] 143 mmol/L 136 - 144 mmol/L [facility] Urea nitrogen [Mass/Vol] 12 mg/dL 7 - 21 mg/dL [facility] EPO SerPl-aCncon 06-29-2023 Erythropoietin (EPO) Qn 10.5 mIU/mL Normal 2.6-18.5 [facility] Comment on above: Order Comment: Speci men Type: BLOOD SPECIMENOrdering Facility: [facility] Address: [address] [place] [address] Performed By: #### 2 039-6, 18566-5 ####[facility] LABCLIA [id number] [place] [address] [place] Ferritin SerPl-[facility] 2022 Ferritin [Mass/Vol] 87.7 ng/mL Normal 14.7-205.1 [facility] Comment on above: Order Comment: Speci men Type: BLOOD SPECIMENOrdering Facility: [facility] Address: [address] [place] [address] Performed By: #### 2 132-9, 61550-4, 6-4, 2283-8 ####[facility] LABCLIA [id number] [place] [address] [place] Folate SerPl-ncon 06-29-20 Folate [Mass/Vol] 6.0 ng/mL Normal >4.7 [facility] Comment on above: Order Comment: Speci men Type: BLOOD SPECIMENOrdering Facility: [facility] Address: [address] [place] [address] Performed By: #### 2 132-9, 73046-7, 6-4, 2283-8 ####[facility] LABCLIA [id number] [place] [address] [place] Iron and Iron binding capaci ty panelon 06-29-2023 Iron [Mass/Vol] 53 ug/dL Normal 41-186 [facility] Comment on above: Order Comment: Speci men Type: BLOOD SPECIMENOrdering Facility: [facility] Address: [address] [place] [address] Performed By: #### 2 132-9, 24773-9, 6-4, 2283-8 ####[facility] LABCLIA [id number] [place] [address] [place] Iron binding capacity [Mass/Vol] 359 ug/dL Normal 232-386 [facility] Comment on above: Order Comment: Speci men Type: BLOOD SPECIMENOrdering Facility: [facility] Address: [address] [place] [address] Performed By: #### 2 132-9, 45537-8, 2276-4, 2284-8 ####[facility] LABCLIA [id number] [place] [address] [place] Iron/TIBC [Molar ratio] 14.8 % Low 15.0-57.0 [facility] Comment on above: Order Comment: Speci men Type: BLOOD SPECIMENOrdering Facility: [facility] Address: [address] [place] [address] Performed By: #### 2 132-9, 96160-4, 2276-4, 2284-8 ####[facility] LABCLIA [id number] [address] [place] RETIC COUNTon 06-29-2023 Reticulocytes (Bld) [#/Vol] 0.55257 10*3/uL 0.018 - 0.100 M/uL [facility] Retics #on 06-29-2023 Reticulocytes (Bld) [#/Vol] 0.20852 10*3/uL Normal 0.018-0.100 [facility] Comment on above: Order Comment: Speci men Type: BLOOD SPECIMENOrdering Facility: [facility] Address: [address] [place] [address] Performed By: #### 1 4196-0, 71938-2 ####[facility] LABCLIA [id number] [place] [address] Reticulocytes (Bld) [#/Vol]o n 06-29-2023 Reticulocytes/100 RBC (Bld) 1.6 % Normal 0.4-2.0 [facility] Comment on above: Order Comment: Speci men Type: BLOOD SPECIMENOrdering Facility: [facility] Address: [address] [place] [address] Performed By: #### 1 4196-0, 08082-7 ####[facility] LABCLIA [id number] [place] [address] Reticulocytes/100 RBC (Bld) 1.6 % 0.4 - 2.0 % [facility] Vit B12 SerPl-mCncon 023 Cobalamin (Vitamin B12) [Mass/Vol] 422 pg/mL Normal 232-1245 [facility] Comment on above: Order Comment: Speci men Type: BLOOD SPECIMENOrdering Facility: [facility] Address: [address] [place] [address] Performed By: #### 2 132-9, 54222-2, 2276-4, 2284-8 ####[facility] LABCLIA [id number] [place] [facility] [place] [address] [place] CNPNon 06-25-2023 CNPN Normal [facility] CT ABDOMEN W IVCONon 023 CT ABDOMEN W IVCON Normal [facility] CT CHEST W IVCONon 3 CT CHEST W IVCON Normal [facility] CNPNon 06-21-2023 CNPN Normal [facility] MISMATCH REPAIR PROTEINS BY IHCon 06-21-2023 MISMATCH REPAIR PROTEINS BY IHC Normal [facility] Comment on above: Order Comment: Speci men Type: FORMALIN-FIXED PARAFFIN-EMBEDDED TISSUE SPECIMENOrdering Facility: Outside Review Address: , , Result Comment: [place], [place]; 05/30/2023 MMR Status Report - Immunohistochemistry Mismatch repair (MMR) interpretation: Proficient (microsatellite stable) Results Mismatch Repair Protein Immunohistochemistry Results: MLH1: Normal/Intact Nuclear Expression PMS2: Normal/Intact Nuclear Expression MSH2: Normal/Intact Nuclear Expression MSH6: Normal/Intact Nuclear Expression ([place], [place]; 05/30/2023) Tissue Analyzed: Rectal mass biopsy, adenocarcinoma Block evaluated: C1 MLH1 promoter methylation assay ordered: No Comment: Intact expression of MMR (mismatch repair) proteins by immunohistochemistry is highly correlated with a microsatellite stable result by MSI (microsatellite instability) PCR analysis, and the results from these tests are viewed as clinically equivalent by the FDA. This result excludes at least 90-95% of De La Rosa syndrome. These tests are an imperfect screen because some mutations may not produce loss of immunohistochemical expression. In cases with a high clinical suspicion and appropriate family history, MSI molecular testing can be performed upon request. In a phase 2 study of patients with metastatic carcinoma, Pushpa et al (BANNER 2015;372:4635-29) reported that clinical benefit of pembrolizumab, an anti-programmed 1 (PD-1) immune checkpoint inhibitor, was predicted by the tumor's mismatch repair status; mismatch repair deficient (dMMR) tumors are more responsive to PD-1 blockade than mismatch repair proficient tumors. Pembrolizumab is FDA-approved for the treatment of adult and pediatric patients with unresectable or metastatic solid tumors that display microsatellite instability-high (MSI-H) by PCR assay or dMMR by immunohistochemistry (IHC). The FDA does not distinguish between PCR and IHC-based assays, as these are considered equivalent and complimentary tests. As clinically indicated, and in the appropriate setting of genetic counseling with informed patient consent, further genetic testing may be helpful. For more information or questions about this result, please call the [facility] at . Methods: [facility] MMR METHOD: Immunohistochemistry was performed on formalin fixed paraffin-embedded tissue using the following clones: MLH1 (clone M1 mouse monoclonal); MSH2 ([id number] mouse monoclonal); and MSH6 (SP93 rabbit monoclonal); followed by ultrasensitive bright field detection (Optiview with amplification) from [[employer], [place]]. PMS2 (EP51 Rabbit monoclonal, [employer]); followed by ultrasensitive bright field detection ( Victor Refine Polymer DAB Detection) from [[employer], [place], [place]]. Laboratory Developed Test (LDT) Disclaimer: Performance characteristics of immunohistochemical, immunofluorescent and chromogenic in-situ hybridization tests have been determined by the performing laboratory within [facility]???s [facility] [place] ([facility]), [facility], [facility], [facility], [facility], [facility], or [facility]) in a manner consistent with CLIA requirements. One or more of these tests have not been cleared or approved by the FDA. [facility] is regulated under CLIA as qualified to perform high-complexity testing. These tests are used for clinical purposes. They should not be regarded as investigational or for research. Positive and negative controls stain appropriately. The diagnostic interpretation was performed at [facility], [address] [place] [address] CLIA# [id number] / - 06/29/2023 Electronically signed out by: Salbador Yates MD Performed By: #### L [id number], [id number] ####[facility] LABIA [id number] [address] OUTSIDE SURG PATH SLIDE REVI EWon 06-21-2023 ADDENDUM 1: Normal [facility] Comment on above: Order Comment: Speci men Type: FORMALIN-FIXED PARAFFIN-EMBEDDED TISSUE SPECIMENOrdering Facility: AP Outside Review Address: , , Result Comment: Dr. Jennifer Esteban, a member of [facility], reviewed part 3 of this case and agrees with the diagnosis. Addendum electronically signed by Wesley Hobbs MD, PhD on 07/02/2023 at 12:17 PM Performed By: #### L [id number], [id number] ####[facility] LABIA [id number] [address] CASE REPORT Normal [facility] Comment on above: Order Comment: Speci men Type: FORMALIN-FIXED PARAFFIN-EMBEDDED TISSUE SPECIMENOrdering Facility: AP Outside Review Address: , , Result Comment: [facility] Pathology Report Case: [id number] Authorizing Provider: Philip Francois MD Collected: 06/21/2023 10:19 AM Ordering Location: Laboratory Medicine Received: 06/20/2023 12:11 PM Pathologist: Wesley Hobbs MD, PhD Specimen: SLIDE(S)/BLOCK(S), 6 SLIDES & 3 BLOCKS (A1-C1) [id number] Performed By: #### L [id number], [id number] ####[facility] LABCLIA [id number] [address] [place] FINAL DIAGNOSIS [facility] Comment on above: Order Comment: Speci men Type: FORMALIN-FIXED PARAFFIN-EMBEDDED TISSUE SPECIMENOrdering Facility: AP Outside Review Address: , , Result Comment: [place], [place] ([id number], 05/30/2023) 1. Descending colon, polyp, biopsy (A1): - Tubular adenoma. 2. Sigmoid colon, polyp, biopsy (B1): - Hyperplastic polyp. 3. Rectal mass, biopsy (C1). - Invasive moderately differentiated adenocarcinoma. Performed By: #### L [id number], [id number] ####[facility] LABCLIA [id number] [address] [place] FINAL PERFORMING LAB [facility] Comment on above: Order Comment: Speci men Type: FORMALIN-FIXED PARAFFIN-EMBEDDED TISSUE SPECIMENOrdering Facility: AP Outside Review Address: , , Result Comment: Diag nostic interpretation performed at [facility], [address] [place] [address] CLIA# [id number] Mannequin Mounter: Rivas Bourne M.D. Performed By: #### L [id number], [id number] ####[facility] LABCLIA [id number] [address] [place] Operative Reporton 3 Operative Report [id number]: 127 Normal [facility] CNPNon 06-11-2023 CNPN Normal [facility] ANES POSTPROC EVALon 023 ANES POSTPROC EVAL HNO ID: [id number] Author: Diana Magaña MD Service: Anesthesiology Author Type: Anesthesiologist Type: Anesthesia Postprocedure Evaluation Filed: 06/08/2023 2:57 PM Note Text: POST ANESTHESIA EVALUATION NOTE : 1960 Procedure Summary Date: 06/08/23 Room / Location: [facility] Endoscopy - ENDO Anesthesia Start: 133 Anesthesia Stop: 140 Procedure: SIGMOIDOSCOPY Diagnosis: Rectal cancer (HCC) (OTHER) Scheduled Providers: Philip Francois MD; Diana Magaña MD; Kelly Mcclain AA Responsible Provider: Diana Magaña MD Anesthesia Type: MAC ASA Status: 2 Anesthesia Type: MAC Last Vitals Vitals Value Taken Time BP 145/78 06/08/23 1441 Temp 36.4 ?C (97.5 ?F) 06/08/23 1405 Pulse 63 06/08/23 1442 Resp 18 06/08/23 1442 SpO2 100 % 06/08/23 1443 Vitals shown include unvalidated device data. Post Anesthesia Patient Status Patient Evaluation: PACU. PACU/ICU Patient Condition: stable. Anticipated Disposition: phase 2 then home. Neurological Status: aware and responsive. Pulmonary Status: breathing comfortably on room air Airway Control: returned to baseline unsupported. Cardiovascular Status: stable. Pain Management: clinically adequate Postoperative Hydration: acceptable. Intraoperative Events: no significant anesthesia events Recommendation: continue current plan of care. Anesthesia Observations No Documentation SIGNATURE: Diana Magaña MD PATIENT NAME: Nancy Sue DATE: June 08, 2023 TIME: 2:57 PM CSN: [id number] Normal [facility] ANES PRE-OPon 06-08-2023 ANES PRE-OP HNO ID: [id number] Author: Diana Magaña MD Service: Anesthesiology Author Type: Anesthesiologist Type: Anesthesia Preprocedure Evaluation Filed: 06/08/2023 1:43 PM Note Text: ANESTHESIOLOGY DAY OF SURGERY NOTE : 1960 Procedure Information Anesthesia Start Date/Time: 06/08/231336 Scheduled providers: Philip Francois MD; Diana Magaña MD; Kelly Mcclain AA Procedure: SIGMOIDOSCOPY Location: [facility] Endoscopy - ENDO Estimated body mass index is 37.77 kg/m? as calculated from the following: Height as of 06/05/23: 165.1 cm (5' 5 ). Weight as of 06/05/23: 103 kg (227 lb). Most recent hematocrit and potassium results: No results found for this basename: HCT,HEMATOCRIT,K,POTASSI UM Relevant Problems No relevant active problems I - PHYSICAL EVALUATION AIRWAY Patient intubated: No. Tracheostomy tube not present Mallampati: I. TM distance: >3 FB. Neck ROM: full ROM without neurological symptoms. Mouth opening: adequate. Short neck: no. Thick neck: no DENTAL Dental findings: teeth intact. Additional exam findings: yes. CARDIOVASCULAR Normal cardiovascular observations. PULMONARY Normal pulmonary observations. Breath sounds clear to auscultation. II - ANESTHESIA PLAN ASA Score: 2 Anesthetic Plan: MAC The patient is not a current smoker. NPO Status: adequate Beta Konstantin Monitoring Plan Monitoring plan: standard ASA. Post Procedure Analgesic Plan Postoperative analgesic plan: multimodal analgesia. Informed Consent Anesthetic risks, benefits, alternatives, personnel and consent discussed: yes. Patient / Responsible [employer] Party agrees to proceed: yes Patient / Surrogate agrees to blood products: blood products not planned DNR status not reviewed with patient and/or family prior to surgery. Significant changes in the patient condition since the History and Physical, not otherwise documented in primary service progress note: no. Potential Anesthesia issues that may suggest increased risk of complications or contraindication to planned procedure: none. Vitals Value Taken Time BP 147/93 06/08/23 1327 Pulse 81 06/08/23 1327 Resp 21 06/08/23 1327 Temp 36.1 ?C (97 ?F) 06/08/23 1327 SpO2 97 % 06/08/23 1327 Outpatient Medications as of 06/08/2023 Medication Sig - Pramoxine-Hydrocortisone (ANALPRAM-HC) 1-1 % rectal cream Refill(s) 0, as directed - iv contrast (will be provided with radiology test) MRI Rectum Inject, intravenously, once for 1 dose. No IV access, insert saline lock prior to the beginning of sedation, infusion, injection of imaging exam. Discontinue saline lock post exam. If Pt has a central line or IVAD, may access for administration according to line specific nursing protocol. Once exam is complete flush line and de-access according to line specific nursing protocol in the MR contrast administration guidelines link. - enteric contrast (will be provided with radiology test) MRI RECTUM WO/W. Administer, As Directed One Time Only, via Oral, Rectal, both Oral and Rectal, Enteric Tube, Stoma or Indwelling Catheter,? Enteric Contrast as designated per enteric contrast guidelines - levothyroxine (SYNTHROID) 50 mcg tablet Take 50 mcg by mouth once daily. - Ugnrn-0-LSR-EPA-Fish Oil (FISH OIL) 1,000 mg (120 mg-180 mg) cap Take 4,000 mg by mouth. Facility-Administered Medications as of 06/08/2023 Medication Dose Route Frequency - lactated ringers iv infusion INTRAVENOUS X (ONE-STEP ONLY) CONTINUOUS PRN I have interviewed and examined the patient. I have reviewed the medical record and/or the pre-anesthesia evaluation, pertinent labs, and test results. This contains updated information obtained within 48 hours of Surgery/Procedure. SIGNATURE: Diana Magaña MD PATIENT NAME: Nancy Sue DATE: June 08, 2023 TIME: 1:43 PM CSN: [id number] Normal [facility] Flexible Sigmoidoscopyon Flexible sigmoidoscopy [facility] Gastrointestinal Endoscopy Patient Name: Nancy Sue Procedure Date: 06/08/2023 1:30 PM Date of : 1960 Admit Type: Outpatient Age: 63 Room: [place] [address] Gender: Female Note Status: Finalized Attending MD: Philip Francois MD Procedure: Flexible Sigmoidoscopy Indications: Mass location Providers: Philip Francois MD, Susy Betancourt RN, Marielena Platt RN (Assisting Nurse), Susy Luo RN (Assisting Nurse) Patient Profile: This is a 63 year old female. Refer to note in patient chart for documentation of history and physical. Last Colonoscopy: 2022. Referring Physician: Philip Francois MD (Referring MD) Medicines: Monitored Anesthesia Care Complications: No immediate complications. Procedure: Pre-Anesthesia Assessment: - Prior to the procedure, a History and Physical was performed, and patient medications and allergies were reviewed. The patient's tolerance of previous anesthesia was also reviewed. The risks and benefits of the procedure and the sedation options and risks were discussed with the patient. All questions were answered, and informed consent was obtained. Prior Anticoagulants: The patient has taken no anticoagulant or antiplatelet agents. ASA Grade Assessment: II - A patient with mild systemic disease. After reviewing the risks and benefits, the patient was deemed in satisfactory condition to undergo the procedure. - Prior to the procedure, a History and Physical was performed, and patient medications, allergies and sensitivities were reviewed. The patient's tolerance of previous anesthesia was reviewed. After obtaining informed consent, the scope was passed under direct vision. The was introduced through the anus and advanced to the sigmoid colon. The flexible sigmoidoscopy was accomplished without difficulty. The patient tolerated the procedure well. Moderate Sedation: See the other procedure note for documentation of moderate sedation with intraservice time. MAC anesthesia was administered by the anesthesia team. Total Procedure Duration: 0 hours 12 minutes 59 seconds Findings: The perianal and digital rectal examinations were normal. Pertinent negatives include normal sphincter tone. An infiltrative and polypoid non-obstructing medium-sized mass was found in the distal sigmoid colon. The mass was partially circumferential (involving two-thirds of the lumen circumference). Oozing was present. Area was tattooed with an injection of 4 mL of Mayra ink. Estimated blood loss: none. Impression: - Malignant tumor in the distal sigmoid colon. Tattooed. - No specimens collected. Recommendation: - Discharge patient to home (with escort). - Patient has a contact number available for emergencies. The signs and symptoms of potential delayed complications were discussed with the patient. Return to normal activities tomorrow. Written discharge instructions were provided to the patient. - Proceed with CT imaging, no need for MRI pelvis Office will call after imaging to schedule surgery Procedure Code(s): --- Professional --- 94753, Sigmoidoscopy, flexible; with directed submucosal injection(s), any substance Diagnosis Code(s): --- Professional --- C18.7, Malignant neoplasm of sigmoid colon CPT copyright 2020 [employer]. All rights reserved. The codes documented in this report are preliminary and upon geography instructor review may be revised to meet current compliance requirements. Attending Participation: I personally performed the entire procedure. Scope In: 1:45:32 PM Scope Out: 1:58:31 PM MD Philip Cohen MD 06/08/2023 2:09:37 PM This report has been signed electronically by Philip Francois MD Number of Addenda: 0 Note Initiated On: 06/08/2023 1:30 PM Estimated Blood Loss: Estimated blood loss: none. Normal [facility] HISTORY PHYSICALon HISTORY PHYSICAL HNO ID: [id number] Author: Philip Francois MD Service: Colorectal Author Type: Physician Type: HANDP Filed: 06/08/2023 1:34 PM Note Text: ENDO HISTORY AND PHYSICAL EXAMINATION SHORT FORM EVALUATION DATE: 06/08/2023 EVALUATION TIME: 1.32pm CHIEF COMPLAINT: Rectal vs colon cancer HPI: This is a 63 year old female who presents with flexible sigmoidoscopy in setting of new diagnosis of adenocarcinoma. Scope to document location. PAST MEDICAL HISTORY: No past medical history on file. PAST SURGICAL HISTORY: No past surgical history on file. SOCIAL HISTORY: FAMILY HISTORY: No family history on file. ALLERGIES: ALLERGIES Allergen Reactions Crestor [Rosuvastat* Myalgia MEDICATIONS: Prior to Admission Medications: Pramoxine-Hydrocortisone (ANALPRAM-HC) 1-1 % rectal cream Refill(s) 0, as directed iv contrast (will be provided with radiology test) MRI Rectum Inject, intravenously, once for 1 dose. No IV access, insert saline lock prior to the beginning of sedation, infusion, injection of imaging exam. Discontinue saline lock post exam. If Pt has a central line or IVAD, may access for administration according to line specific nursing protocol. Once exam is complete flush line and de-access according to line specific nursing protocol in the MR contrast administration guidelines link. enteric contrast (will be provided with radiology test) MRI RECTUM WO/W. Administer, As Directed One Time Only, via Oral, Rectal, both Oral and Rectal, Enteric Tube, Stoma or Indwelling Catheter, Enteric Contrast as designated per enteric contrast guidelines levothyroxine (SYNTHROID) 50 mcg tablet Take 50 mcg by mouth once daily. Jvdpr-5-NJA-EPA-Fish Oil (FISH OIL) 1,000 mg (120 mg-180 mg) cap Take 4,000 mg by mouth. No current facility-administered medications for this encounter. REVIEW OF SYSTEMS: PROCESS ARTIST: Negative for CVA, Negative for TIA Respiratory: Negative for smoking, dyspnea, cough, asthma, bronchitis, emphysema Cardiovascular: Negative for chest pain, leg swelling or palpitations. GI: See HPI : No history of dysuria, frequency and incontinence Endocrine: Negative for cold or heat intolerance, polyuria, polydipsia and goiter. Hematology Negative for prolonged bleeding, bruising easily, and swollen nodes. PHYSICAL EXAM: Patient Vitals for the past 24 hrs: BP Temp Temp src Pulse Resp SpO2 06/08/23 1327 147/93 36.1 ?C (97 ?F) Temporal 81 21 97 % General Appearance: well appearing, alert, in no acute distress Oropharynx: teeth normal, oropharynx normal Neck: Full range of motion, Supple Lungs: Unlabored on room air Heart: RRR without murmur, gallop, or rubs. No ectopy, Not examined Abdomen: Abdomen soft, non-tender, non-distended. Bowel sounds normal. No masses, organomegaly Extremities: No clubbing, cyanosis, or edema. IMPRESSION: Rectal vs colon cancer PLAN OF TREATMENT: Flexible Sigmiodoscopy SIGNATURE: Philip Francois MD PATIENT NAME: Nancy Sue DATE: June 08, 2023 TIME: 1:32 PM [facility] NURSING PROGon 06-08-2023 NURSING PROG HNO ID: [id number] Author: Monika Kitchen RN Service: Nursing Author Type: Registered Nurse Type: Nursing Progress Note Filed: 06/08/2023 3:05 PM Note Text: PATIENT EDUCATION TOPIC: PROCEDURE / SURGERY: Procedure/Surgery: Flex sig PATIENT NAME: Nancy Sue PATIENT LOCATION: Room/bed info not found READINESS TO LEARN COGNITIVE ABILITY: Alert and oriented MOTIVATION TO LEARN: Interested FAMILY SUPPORT: None - Unavailable/disintereste d INSTRUCTION PROVIDED TO: Patient PATIENT LEARNS BEST BY: Individual Instruction FACTORS AFFECTING LEARNING: None PHYSICAL LIMITATIONS AFFECTING LEARNING: None LEARNING RESPONSE DIAGNOSIS: ADULT: colon cancer PATIENT/FAMILY RESPONSE: Verbalizes understanding of: POST-PROCEDURE INSTRUCTIONS-Correct actions to take to reduce post procedure complications METHOD OF INSTRUCTION: Individual instruction FOLLOW-UP PLAN: Complete - No need for follow-up INSTRUCTIONAL AIDS USED: NA SUPPLEMENTAL MATERIAL PROVIDED TO PATIENT: None REFERRAL (RECOMMENDATION): None Electronically Signed By: Monika Kitchen [facility] NURSING PROG HNO ID: [id number] Author: Faviola Berger RN Service: Gastroenterology Author Type: Registered Nurse Type: Nursing Progress Note Filed: 06/08/2023 1:26 PM Note Text: PATIENT EDUCATION TOPIC: PROCEDURE / SURGERY: Procedure/Surgery: Sigmoigoscopy PATIENT NAME: Nancy Sue PATIENT LOCATION: Room/bed info not found READINESS TO LEARN COGNITIVE ABILITY: Alert and oriented MOTIVATION TO LEARN: Interested FAMILY SUPPORT: Unable to assess - Family not present INSTRUCTION PROVIDED TO: Patient PATIENT LEARNS BEST BY: Individual Instruction FACTORS AFFECTING LEARNING: None PHYSICAL LIMITATIONS AFFECTING LEARNING: None LEARNING RESPONSE DIAGNOSIS: ADULT: Sigmoidoscopy PATIENT/FAMILY RESPONSE: Information received as demonstrated by interest and questions METHOD OF INSTRUCTION: Individual instruction FOLLOW-UP PLAN: Complete - No need for follow-up INSTRUCTIONAL AIDS USED: NA SUPPLEMENTAL MATERIAL PROVIDED TO PATIENT: None REFERRAL (RECOMMENDATION): None Electronically Signed By: Faviola Berger Normal [facility] SIGMOIDOSCOPYon 06-08-2023 [facility] Consultation Noteon 06-07-20 Consultation Note [id number]#[id number]:1 27 Normal [facility] CNPNon 06-06-2023 CNPN Normal [facility] CEA SerPl-mCncon 06-05-2023 Carcinoembryonic Ag [Mass/Vol] 1.4 ng/mL Normal <=2.9 [facility] Comment on above: Order Comment: Fatou nava Type: BLOOD SPECIMENOrdering Facility: [facility] Address: [address] [place] [address] Result Comment: Carc inoembryonic antigen test is used as an aid in monitoring response to treatment or recurrence in patients with established colorectal, breast, lung, prostatic, pancreatic, and ovarian carcinomas. Clinical correlation is required.The Carcinoembryonic antigen test was performed using the [employer] Un[employer] DXI paramagnetic particle chemiluminescent immunoassay method. Results obtained with different assay methods or kits cannot be used interchangeably. Performed By: #### 2 [id number] ####[facility] LABCLIA [id number] [address] [place] CNOVon 06-05-2023 CNOV Normal [facility] CREATININE BLDon 06-05-2023 Creatinine [Mass/Vol] 0.89 mg/dL Normal 0.58-0.96 [facility] Comment on above: Order Comment: Fatou nava Type: BLOOD SPECIMENOrdering Facility: [facility] Address: [address] [place] [address], [place] [address] Performed By: #### C RET1 ####[facility] LABCLIA [id number] [place] [address] Creatinine and Glomerular filtration rate.predicted panel (S/P/Bld) 73 mL/min/1.73m??? Normal >=60 [facility] Comment on above: Order Comment: Speci men Type: BLOOD SPECIMENOrdering Facility: [facility] Address: [place] [address] Result Comment: Kelsey mated Glomerular Filtration Rate (eGFR) is calculated using the 2020 CKD-EPI creatinine equation. This equation utilizes serum creatinine, sex, and age as parameters. The creatinine assay has traceable calibration to isotope dilution-mass spectrometry. Refer to KDIGO guidelines for clinical interpretation. In patients with unstable renal function, e.g. those with acute kidney injury, the eGFR may not accurately reflect actual GFR. Performed By: #### C RET1 ####[facility] LABCLIA [id number] [place] [address] Outside Colonoscopyon 2022 Outside Colonoscopy [id number]#[id number]:1 27 Normal [facility] Pathology Noteon 06-04-2023 Pathology Note [id number]: 127 Normal [facility] Consent for Procedure/Surger yon 05-09-2023 Consent for Procedure/Surgery [id number]#[id number]: 127 Normal [facility] Ambulatory Visit Summaryon 0 05-08-2023 Ambulatory Visit Summary NANCY SUE :1960 Visit Date:05/08/2023 Ambulatory Visit Instructions Your Care Team Attending Physician - ROSA MUNOZ, Salbador Sloan Primary Care Physician - Jose Buckner MD This Is Your Medications List Contact prescribing physician if questions or concerns hydrocortisone-pramoxine topical (hydrocortisone-pramoxin e 1%-1% rectal cream) levothyroxine (levothyroxine 50 mcg (0.05 mg) Tab) omega-3 polyunsaturated fatty acids (Fish Oil 1000 mg oral capsule) Procedures Performed Colonoscopy (03/2020), Colonoscopy, Excision of lipoma, Salpingectomy, Vaginal hysterectomy. Discharge Vitals Heart Rate (Peripheral) 80 Respiratory Rate 16 Blood Pressure 128/88 Height 165.1 cm Height 65 in Weight 103.6 kg Weight 227.92 lb BMI 38.01 Medications What How Much When Instructions Unchanged hydrocortisone-pramoxine topical (hydrocortisone-pramoxin e 1%-1% rectal cream) as directed Contact prescribing physician if questions or concerns Unchanged levothyroxine (levothyroxine 50 mcg (0.05 mg) Tab) 1 Tablets By Mouth Every day Contact prescribing physician if questions or concerns Unchanged omega-3 polyunsaturated fatty acids (Fish Oil 1000 mg oral capsule) 4 Capsules By Mouth Every day Contact prescribing physician if questions or concerns Allergies pravastatin (Myalgia) Problems Ongoing - Any problem that you are currently receiving treatment for. BMI 38.0-38.9,adult Diverticulitis of colon Hemorrhoid Hiatal hernia History of gallstones Hyperlipidemia Hyperplastic colon polyp IBS (irritable bowel syndrome) Morbid obesity Positive colorectal cancer screening using Cologuard test Normal [facility] Physician Referralon 023 Physician Referral [id number]: 127 Normal [facility] MG MAMM SCREEN 3D HUDSON CADon 11-29-2022 MG MAMM SCREEN 3D HUDSON CAD Patient: NANCY SUE Exam Date: 11/29/2022 : 1960 Gender:F Ordering : DR JOSE BUCKNER . Admission #: [id number] Family : Order #: [id number] CLICK HERE TO VIEW EXAM RADIOLOGY REPORT PROCEDURE: MAMMOGRAM SCREENING 3D BILATERAL CAD COMPARISON: MG MAMM SCREEN HUDSON W CAD, 11/17/2020. MG MAMM SCREEN HUDSON W CAD, 11/17/2019. MG MAMM HUDSON SCRN W CAD DIG, 07/13/1998. MG MAMM SCREEN 3D HUDSON CAD, 11/23/2021. INDICATIONS: Screening mammography Calculator Name NCI Breast Cancer Risk Assessment Tool 5 Year Breast Cancer Risk 1.70% Lifetime Breast Cancer Risk 7.40% Personal Breast Cancer No Personal Ovarian Cancer No Treatments None Family Cancers Aunt-paternal with breast cancer at age 75. LOCATION: [facility] BREAST COMPOSITION: Scattered areas fibroglandular density. FINDINGS: DIAGNOSTIC CATEGORY 2--BENIGN FINDING: RIGHT BREAST: No significant suspicious finding. Scattered benign-appearing lymph nodes are present. No significant change has occurred. LEFT BREAST: No significant suspicious finding. No significant change has occurred. RECOMMENDATIONS: ROUTINE MAMMOGRAM AND CLINICAL EVALUATION IN 12 MONTHS. PLEASE NOTE: A NORMAL MAMMOGRAM DOES NOT EXCLUDE THE POSSIBILITY OF BREAST CANCER. A CLINICALLY SUSPICIOUS PALPABLE LUMP SHOULD BE BIOPSIED. Dictated by: Diana Tenorio M.D. on 11/29/2022 at 13:01 Approved by: Diana Tenorio M.D. on 11/29/2022 at 13:07 Normal [facility] CELIAC ANTIBODIES PROFILEon 08-23-2022 Deamidated Gliadin Abs, IgA 3 units Normal 0-19 [facility] Comment on above: Result Comment: Nega tive 0 - 19 Weak Positive 20 - 30 Moderate to Strong Positive >30 Performed By: #### C ELIACP #### [facility] [address] [address] [address] Donovan Cruz Deamidated Gliadin Abs, IgG 2 units Normal 0-19 [facility] Comment on above: Result Comment: Nega tive 0 - 19 Weak Positive 20 - 30 Moderate to Strong Positive >30 Performed By: #### C ELIACP #### [facility] [address] [address] [address] Donovan Cruz Endomysial Antibody IgA Negative Normal Negative [facility] Comment on above: Performed By: #### C ELIACP #### [facility] [address] [address] [address] Donovan Cruz Immunoglobulin A, Qn, Serum 117 mg/dL Normal 87-352 [facility] Comment on above: Performed By: #### C ELIACP #### [facility] [address] [address] [address] Donovan Cruz t-Transglutaminase (tTG) IgA <2 Normal 0-3 [facility] Comment on above: Result Comment: Nega tive 0 - 3 Weak Positive 4 - 10 Positive >10 . Tissue Transglutaminase (tTG) has been identified as the endomysial antigen. Studies have demonstr- ated that endomysial IgA antibodies have over 99% specificity for gluten sensitive enteropathy. Performed By: #### C ELIACP #### [facility] [address] [address] [address] Donovan Cruz t-Transglutaminase (tTG) IgG <2 Normal 0-5 [facility] Comment on above: Result Comment: Nega tive 0 - 5 Weak Positive 6 - 9 Positive >9 Performed By: #### C ELIACP #### [facility] [address] [address] [address] Donovan Cruz HEPATITIS PANEL, ACUTEon HBsAg Screen Negative Normal Negative [facility] Comment on above: Performed By: #### H EPACUT #### [facility] [address] [address] [address] Donovan Cruz HCV AB <0.1 Normal 0.0-0.9 [facility] Comment on above: Performed By: #### H EPACUT #### [facility] [address] [address] [address] Donovan Cruz Hep A Ab, IgM Negative Normal Negative [facility] Comment on above: Performed By: #### H EPACUT #### [facility] [address] [address] [address] Donovan Cruz Hep B Core Ab, IgM Negative Normal Negative [facility] Comment on above: Performed By: #### H EPACUT #### [facility] [address] [address] [address] Donovan Cruz Interpretation: Comment Normal [facility] Comment on above: Result Comment: Nega tive Not infected with HCV, unless recent infection is suspected or other evidence exists to indicate HCV infection. Performed By: #### H EPACUT #### [facility] [address] [address] [address] Donovan Cruz FREE T3on 08-22-2022 FREE T3 2.19 pg/mlL Normal 2.18-3.98 [facility] Comment on above: Performed By: #### C BC #### [facility] [address] [place] [address] Dr. Donovan Cruz PROF 14(COMP METB)on 022 Albumin [Mass/Vol] 3.5 g/dL Normal 3.4-5.0 [facility] Comment on above: Performed By: #### T 4, FT3, CMP, TSH #### [facility] [address] [place] [address] Dr. Donovan Cruz Albumin/Globulin [Mass ratio] 1.0 {ratio} Normal [facility] Comment on above: Performed By: #### T 4, FT3, CMP, TSH #### [facility] [address] [place] [address] Dr. Donovan Cruz ALP [Catalytic activity/Vol] 68 U/L Normal 46-116 [facility] Comment on above: Performed By: #### T 4, FT3, CMP, TSH #### [facility] [address] [place] [address] Dr. Donovan Cruz ALT [Catalytic activity/Vol] 70 U/L Critically high 14-59 [facility] Comment on above: Performed By: #### T 4, FT3, CMP, TSH #### [facility] [address] [place] [address] Dr. Donovan Cruz Anion gap [Moles/Vol] 12.7 mmol/L Normal [facility] Comment on above: Performed By: #### T 4, FT3, CMP, TSH #### [facility] [address] [place] [address] Dr. Donovan Cruz AST [Catalytic activity/Vol] 42 U/L Critically high 15-37 [facility] Comment on above: Performed By: #### T 4, FT3, CMP, TSH #### [facility] [address] [place] [address] Dr. Donovan Cruz Bilirubin [Mass/Vol] 0.4 mg/dL Normal 0.2-1.0 [facility] Comment on above: Performed By: #### T 4, FT3, CMP, TSH #### [facility] [address] [address] [address] Donovan Cruz Calcium [Mass/Vol] 8.8 mg/dL Normal 8.5-10.1 [facility] Comment on above: Performed By: #### T 4, FT3, CMP, TSH #### [facility] [address] [address] [address] Donovan Cruz Chloride [Moles/Vol] 102 mmol/L Normal 98-107 [facility] Comment on above: Performed By: #### T 4, FT3, CMP, TSH #### [facility] [address] [address] [address] Donovan Cruz CO2 [Moles/Vol] 29.6 mmol/L Normal 21.0-32.0 [facility] Comment on above: Performed By: #### T 4, FT3, CMP, TSH #### [facility] [address] [address] [address] Donoavn Cruz Creatinine [Mass/Vol] 0.91 mg/dL Normal 0.55-1.02 [facility] Comment on above: Performed By: #### T 4, FT3, CMP, TSH #### [facility] [address] [place] [address] Dr. Donovan Cruz EGFR-AF SAMOAN >60 Normal >=60 [facility] Comment on above: Performed By: #### T 4, FT3, CMP, TSH #### [facility] [address] [address] [address] Donovan Cruz EGFR-NON AF SAMOAN >60 Normal >=60 [facility] Comment on above: Performed By: #### T 4, FT3, CMP, TSH #### [facility] [address] [address] [address] Donovan Cruz Globulin (S) [Mass/Vol] 3.5 g/dL Normal [facility] Comment on above: Performed By: #### T 4, FT3, CMP, TSH #### [facility] [address] [address] [address] Donovan Cruz Glucose [Mass/Vol] 116 mg/dL Critically high 74-106 [facility] Comment on above: Performed By: #### T 4, FT3, CMP, TSH #### [facility] [address] [place] [address] Dr. Donovan Cruz Potassium [Moles/Vol] 4.3 mmol/L Normal 3.5-5.1 [facility] Comment on above: Performed By: #### T 4, FT3, CMP, TSH #### [facility] [address] [place] [address] Dr. Donovan Cruz Protein [Mass/Vol] 7.0 g/dL Normal 6.4-8.2 [facility] Comment on above: Performed By: #### T 4, FT3, CMP, TSH #### [facility] [address] [place] [address] Dr. Donovan Cruz Sodium [Moles/Vol] 140 mmol/L Normal 136-145 [facility] Comment on above: Performed By: #### T 4, FT3, CMP, TSH #### [facility] [address] [place] [address] Dr. Donovan Cruz Urea nitrogen [Mass/Vol] 14.0 mg/dL Normal 7.0-18.0 [facility] Comment on above: Performed By: #### T 4, FT3, CMP, TSH #### [facility] [address] [place] [address] Dr. Donovan Cruz Urea nitrogen/Creatinine [Mass ratio] 15.4 mg/mg Normal [facility] Comment on above: Performed By: #### T 4, FT3, CMP, TSH #### [facility] [address] [place] [address] Dr. Donovan Cruz T4on 08-22-2022 T4 [Mass/Vol] 9.30 ug/dL Normal 4.80-13.90 [facility] Comment on above: Performed By: #### T 4, FT3, CMP, TSH #### [facility] [address] [place] [address] Dr. Donovan Cruz TSHon 08-22-2022 TSH 2.470 uIU/mL Normal 0.358-3.[address] [facility] Comment on above: Performed By: #### C BC #### [facility] [address] [place] [address] Dr. Donovan Cruz CBC AUTO DIFFon 07-07-2022 BASO # 0.0 103/ul Normal 0.0-0.1 [facility] Comment on above: Performed By: #### C BC #### [facility] [address] [place] [address] Dr. Donovan Cruz Basophils/100 WBC (Bld) 0.4 % Normal 0.2-2.0 [facility] Comment on above: Performed By: #### C BC #### [facility] [address] [place] [address] Dr. Donovan Cruz EO # 0.2 103/ul Normal 0.0-0.7 [facility] Comment on above: Performed By: #### C BC #### [facility] [address] [place] [address] Dr. Donovan Cruz Eosinophils/100 WBC (Bld) 3.6 % Normal 0.9-7.0 [facility] Comment on above: Performed By: #### C BC #### [facility] [address] [place] [address] Dr. Donovan rCuz Erythrocyte distribution width (RBC) [Ratio] 12.8 % Normal 11.0-15.0 [facility] Comment on above: Performed By: #### C BC #### [facility] [address] [place] [address] Dr. Donovan Cruz Hematocrit (Bld) [Volume fraction] 39.7 % Normal 36.0-48.0 [facility] Comment on above: Performed By: #### C BC #### [facility] [address] [place] [address] Dr. Donovan Cruz Hemoglobin (Bld) [Mass/Vol] 13.3 g/dL Normal 12.0-16.0 [facility] Comment on above: Performed By: #### C BC #### [facility] [address] [place] [address] Dr. Donovan Cruz IG # 0.01 10e3/ul Normal 0.00-0.03 [facility] Comment on above: Performed By: #### C BC #### [facility] [address] [place] [address] Dr. Donovan Cruz IG % 0.2 % Normal 0.0-0.5 [facility] Comment on above: Performed By: #### C BC #### [facility] [address] [place] [address] Dr. Donovan Cruz LYMPH # 2.2 103/ul Normal 1.2-3.8 [facility] Comment on above: Performed By: #### C BC #### [facility] [address] [place] [address] Dr. Donovan Cruz Lymphocytes/100 WBC (Bld) 45.1 % Normal 20.5-60.0 [facility] Comment on above: Performed By: #### C BC #### [facility] [address] [place] [address] Dr. Donovan Cruz MANUAL DIFF REQ NO Normal [facility] Comment on above: Performed By: #### C BC #### [facility] [address] [place] [address] Dr. Donovan Cruz MCH (RBC) [Entitic mass] 30.4 pg Normal 26.7-34.0 [facility] Comment on above: Performed By: #### C BC #### [facility] [address] [place] [address] Dr. Donovan Cruz MCHC (RBC) [Mass/Vol] 33.5 g/dL Normal 29.9-35.2 [facility] Comment on above: Performed By: #### C BC #### [facility] [address] [place] [address] Dr. Donovan Cruz MCV (RBC) [Entitic vol] 90.6 fL Normal 81.0-99.0 [facility] Comment on above: Performed By: #### C BC #### [facility] [address] [place] [address] Dr. Donovan Cruz MONO # 0.3 103/ul Normal 0.3-0.8 [facility] Comment on above: Performed By: #### C BC #### [facility] [address] [address] [address] Donovan Cruz Monocytes/100 WBC (Bld) 5.8 % Normal 1.7-12.0 [facility] Comment on above: Performed By: #### C BC #### [facility] [address] [address] [address] Donovan Cruz NEUT # 2.2 103/ul Normal 1.4-6.5 [facility] Comment on above: Performed By: #### C BC #### [facility] [address] [place] [address] Dr. Donovan Cruz Neutrophils/100 WBC (Bld) 44.9 % Normal 43.0-75.0 [facility] Comment on above: Performed By: #### C BC #### [facility] [address] [place] [address] Dr. Donovan Cruz Platelet mean volume (Bld) [Entitic vol] 11.2 fL Normal 9.5-13.5 [facility] Comment on above: Performed By: #### C BC #### [facility] [address] [place] [address] Dr. Donovan Cruz PLT 158 103/ul Normal 150-450 [facility] Comment on above: Performed By: #### C BC #### [facility] [address] [place] [address] Dr. Donovan Cruz RBC 4.38 106/ul Normal 4.20-5.40 [facility] Comment on above: Performed By: #### C BC #### [facility] [address] [place] [address] Dr. Donovan Cruz WBC 5.0 103/ul Normal 4.0-11.0 [facility] Comment on above: Performed By: #### C BC #### [facility] [address] [place] [address] Dr. Donovan Cruz GLYCOHEMOGLOBIN A1Con 2021 ADA RECOMMENDATION SEE BELOW Normal [facility] Comment on above: Result Comment: ADA RECOMMENDED LIMIT 4.0 - 6.0 ADA THERAPEUTIC TARGET < 7.0 ACTION SUGGESTED > 7.0 Performed By: #### A 1C #### [facility] [address] [address] [address] Donovan Cruz Glucose [Mass/Vol] 114 mg/dL Normal [facility] Comment on above: Performed By: #### A 1C #### [facility] [address] [address] [address] Donovan Cruz HbA1c (Bld) [Mass fraction] 5.6 % Normal 4.5-6.2 [facility] Comment on above: Performed By: #### A 1C #### [facility] [address] [address] [address] Donovan Cruz LIPID PROFILEon 07-07-2022 CHOL-HDL RATIO NORM SEE BELOW Normal [facility] Comment on above: Result Comment: 3.3 - 4.4 LOW RISK 4.4 - 7.1 AVERAGE RISK 7.1 - 11.0 MODERATE RISK >11.0 HIGH RISK Performed By: #### T SH, CMP, LIPID #### [facility] [address] [address] [address] Donovan Cruz Cholesterol [Mass/Vol] 215 mg/dL Critically high <=200 [facility] Comment on above: Performed By: #### T SH, CMP, LIPID #### [facility] [address] [address] [address] Donovan Cruz Cholesterol in HDL [Mass/Vol] 40 mg/dL Normal 40-60 [facility] Comment on above: Performed By: #### T SH, CMP, LIPID #### [facility] [address] [address] [address] Donovan Cruz Cholesterol in LDL [Mass/Vol] 146.8 mg/dL Normal [facility] Comment on above: Performed By: #### T SH, CMP, LIPID #### [facility] [address] [address] [address] Donovan Cruz Cholesterol.total/Ch olesterol in HDL [Mass ratio] 5.4 {ratio} Normal [facility] Comment on above: Performed By: #### T SH, CMP, LIPID #### [facility] [address] [address] [address] Donovan Cruz HDL NORMAL > or = 60 mg/dl - LO W CARDIOVASCULAR RISK <40 mg/dl - HIGH CARDIOVASCULAR RISK Normal [facility] Comment on above: Performed By: #### T SH, CMP, LIPID #### [facility] [address] [address] [address] Donovan Cruz LDL CALC NORMAL SEE BELOW Normal [facility] Comment on above: Result Comment: <100 mg/dl OPTIMAL 100 - 129 mg/dl NEAR OR ABOVE OPTIMAL 130 - 159 mg/dl BORDERLINE HIGH 160 - 189 mg/dl HIGH >190 mg/dl VERY HIGH Performed By: #### T ROCCO CMP, LIPID #### [facility] [address] [address] [address] Donovan Cruz Triglyceride [Mass/Vol] 141 mg/dL Normal <=150 [facility] Comment on above: Performed By: #### T ROCCO CMP, LIPID #### [facility] [address] [address] [address] Donovan Cruz VLDL CALC 28.2 mg/dL Normal [facility] Comment on above: Performed By: #### T ROCCO CMP, LIPID #### [facility] [address] [place] [address] Dr. Donovan Cruz PROF 14(COMP METB)on 022 Albumin [Mass/Vol] 3.7 g/dL Normal 3.4-5.0 [facility] Comment on above: Performed By: #### T ROCCO CMP, LIPID #### [facility] [address] [place] [address] Dr. Donovan Cruz Albumin/Globulin [Mass ratio] 1.1 {ratio} Normal [facility] Comment on above: Performed By: #### T ROCCO, CMP, LIPID #### [facility] [address] [place] [address] Dr. Donovan Cruz ALP [Catalytic activity/Vol] 66 U/L Normal 46-116 [facility] Comment on above: Performed By: #### T SH, CMP, LIPID #### [facility] [address] [place] [address] Dr. Donovan Cruz ALT [Catalytic activity/Vol] 83 U/L Critically high 14-59 [facility] Comment on above: Performed By: #### T SH, CMP, LIPID #### [facility] [address] [address] [address] Donovan Cruz Anion gap [Moles/Vol] 10.1 mmol/L Normal [facility] Comment on above: Performed By: #### T SH, CMP, LIPID #### [facility] [address] [address] [address] Donovan Cruz AST [Catalytic activity/Vol] 53 U/L Critically high 15-37 [facility] Comment on above: Performed By: #### T SH, CMP, LIPID #### [facility] [address] [place] [address] Dr. Donovan Cruz Bilirubin [Mass/Vol] 0.3 mg/dL Normal 0.2-1.0 [facility] Comment on above: Performed By: #### T ROCCO, CMP, LIPID #### [facility] [address] [address] [address] Donovan Cruz Calcium [Mass/Vol] 9.1 mg/dL Normal 8.5-10.1 [facility] Comment on above: Performed By: #### T SH, CMP, LIPID #### [facility] [address] [address] [address] Donovan Cruz Chloride [Moles/Vol] 105 mmol/L Normal 98-107 [facility] Comment on above: Performed By: #### T SH, CMP, LIPID #### [facility] [address] [address] [address] Donovan Cruz CO2 [Moles/Vol] 30.1 mmol/L Normal 21.0-32.0 [facility] Comment on above: Performed By: #### T SH, CMP, LIPID #### [facility] [address] [address] [address] Donovan Cruz Creatinine [Mass/Vol] 0.91 mg/dL Normal 0.55-1.02 [facility] Comment on above: Performed By: #### T SH, CMP, LIPID #### [facility] [address] [address] [address] Donovan Cruz EGFR-AF SAMOAN >60 Normal >=60 [facility] Comment on above: Performed By: #### T SH, CMP, LIPID #### [facility] [address] [address] [address] Donovan Cruz EGFR-NON AF SAMOAN >60 Normal >=60 [facility] Comment on above: Performed By: #### T SH, CMP, LIPID #### [facility] [address] [address] [address] Donovan Cruz Globulin (S) [Mass/Vol] 3.4 g/dL Normal [facility] Comment on above: Performed By: #### T SH, CMP, LIPID #### [facility] [address] [address] [address] Donovan Cruz Glucose [Mass/Vol] 113 mg/dL Critically high 74-106 [facility] Comment on above: Performed By: #### T SH, CMP, LIPID #### [facility] [address] [address] [address] Donovan Cruz Potassium [Moles/Vol] 4.2 mmol/L Normal 3.5-5.1 [facility] Comment on above: Performed By: #### T SH, CMP, LIPID #### [facility] [address] [address] [address] Donovan Cruz Protein [Mass/Vol] 7.1 g/dL Normal 6.4-8.2 [facility] Comment on above: Performed By: #### T SH, CMP, LIPID #### [facility] [address] [address] [address] Donovan Cruz Sodium [Moles/Vol] 141 mmol/L Normal 136-145 [facility] Comment on above: Performed By: #### T SH, CMP, LIPID #### [facility] [address] [address] [address] Donovan Cruz Urea nitrogen [Mass/Vol] 14.0 mg/dL Normal 7.0-18.0 [facility] Comment on above: Performed By: #### T SH, CMP, LIPID #### [facility] [address] [place], [place] [address] Dr. Donovan Cruz Urea nitrogen/Creatinine [Mass ratio] 15.4 mg/mg Normal [facility] Comment on above: Performed By: #### T SH, CMP, LIPID #### [facility] [address] [place], [place] [address] Dr. Donovan Cruz TSHon 07-07-2022 TSH 5.438 uIU/mL Critically high 0.358-3.740 [facility] Comment on above: Performed By: #### T SH, CMP, LIPID #### [facility] [id number] Donovan Cruz Office Visiton 07-05-2022 Follow-up visit [id number] Roberto Sue 1960 F Date Provider Department Center 07/05/2022 BELEN SPRAGUE [facility] Family History Problem Relation Age of Onset Stroke Mother Other Father Hypertension Sister Sleep apnea Brother Family Status - Relation Status Age at Mother Father Sister Brother Level of Service:02977 [place] OFFICE/OUTPATIENT NEW MODERATE MDM 45-59 MINUTES Reason for Visit and Comments: Hypertension [229887] Hyperlipidemia [182] Normal [facility] Vital Signs Date Time Vital Sign Value Performing Clinician Facility 12-19-2023 07:30-0400 Body height 164.3 cm Pacc 3 Work Phone: [facility] 12-19-2023 07:30-0400 Body temperature 97.81 [degF] Pacc 3 Work Phone: [facility] 12-19-2023 07:30-0400 Body weight 101.1 kg Pacc 3 Work Phone: [facility] 12-19-2023 07:30-0400 Diastolic blood pressure 73 mm[Hg] Pacc 3 Work Phone: [facility] 12-19-2023 07:30-0400 Heart rate 74 /min Pac 3 Work Phone: [facility] 12-19-2023 07:30-0400 Respiratory rate 16 /min Pacc 3 Work Phone: [facility] 12-19-2023 07:30-0400 SaO2% (BldA) [Mass fraction] 98 % Pacc 3 Work Phone: [facility] 12-19-2023 07:30-0400 Systolic blood pressure 142 mm[Hg] Pacc 3 Work Phone: [facility] 11-23-2023 11:01-0400 Body temperature 98.29 [degF] Chair Eddy Work Phone: [facility] 11-23-2023 11:01-0400 Diastolic blood pressure 76 mm[Hg] Chair Eddy Work Phone: [facility] 11-23-2023 11:01-0400 Heart rate 78 /min Chair Karla Work Phone: [facility] 11-23-2023 11:01-0400 Respiratory rate 18 /min Chair Karla Work Phone: [facility] 11-23-2023 11:01-0400 SaO2% (BldA) [Mass fraction] 96 % Chair Karla Work Phone: [facility] 11-23-2023 11:01-0400 Systolic blood pressure 133 mm[Hg] Chair Karla Work Phone: [facility] 11-21-2023 09:09-0400 Body height 164.3 cm Andrew Wing MD Work Phone: [facility] 11-21-2023 09:09-0400 Body temperature 97 [degF] Andrew Wing MD Work Phone: [facility] 11-21-2023 09:09-0400 Body weight 101.3 kg Andrew Wing MD Work Phone: [facility] 11-21-2023 09:09-0400 Diastolic blood pressure 81 mm[Hg] Andrew Wing MD Work Phone: [facility] 11-21-2023 09:09-0400 Heart rate 70 /min Andrew Wing MD Work Phone: [facility] 11-21-2023 09:09-0400 Respiratory rate 16 /min Andrew Wing MD Work Phone: [facility] 11-21-2023 09:09-0400 SaO2% (BldA) [Mass fraction] 97 % Andrew Wing MD Work Phone: [facility] 11-21-2023 09:09-0400 Systolic blood pressure 162 mm[Hg] Andrew Wing MD Work Phone: [facility] 10-26-2023 10:26-0500 Body temperature 98.1 [degF] Chair Eddy Work Phone: [facility] 10-26-2023 10:26-0500 Diastolic blood pressure 84 mm[Hg] Chair Eddy Work Phone: [facility] 10-26-2023 10:26-0500 Heart rate 85 /min Chair Eddy Work Phone: [facility] 10-26-2023 10:26-0500 Respiratory rate 16 /min Chair Eddy Work Phone: [facility] 10-26-2023 10:26-0500 SaO2% (BldA) [Mass fraction] 96 % Chair Eddy Work Phone: [facility] 10-26-2023 10:26-0500 Systolic blood pressure 116 mm[Hg] Chair Eddy Work Phone: [facility] 10-24-2023 09:09-0500 Body height 164.3 cm Andrew Wing MD Work Phone: [facility] 10-24-2023 09:09-0500 Body temperature 97.81 [degF] Andrew Wing MD Work Phone: [facility] 10-24-2023 09:09-0500 Body weight 100.4 kg Andrew Wing MD Work Phone: [facility] 10-24-2023 09:09-0500 Diastolic blood pressure 76 mm[Hg] Andrew Wing MD Work Phone: [facility] 10-24-2023 09:09-0500 Heart rate 76 /min Andrew Wing MD Work Phone: [facility] 10-24-2023 09:09-0500 Respiratory rate 16 /min Andrew Wing MD Work Phone: [facility] 10-24-2023 09:09-0500 SaO2% (BldA) [Mass fraction] 97 % Andrew Wing MD Work Phone: [facility] 10-24-2023 09:09-0500 Systolic blood pressure 175 mm[Hg] Andrew Wing MD Work Phone: [facility] 10-12-2023 10:57-0500 Body temperature 98.01 [degF] Chair Eddy Work Phone: [facility] 10-12-2023 10:57-0500 Diastolic blood pressure 63 mm[Hg] Chair Eddy Work Phone: [facility] 10-12-2023 10:57-0500 Heart rate 107 /min Chair Eddy Work Phone: [facility] 10-12-2023 10:57-0500 Respiratory rate 18 /min Chair Karla Work Phone: [facility] 10-12-2023 10:57-0500 Systolic blood pressure 98 mm[Hg] Chair Eddy Work Phone: [facility] 08-13-2023 13:14-0500 Body height 165.1 cm Pacc 3 Work Phone: [facility] 08-13-2023 13:14-0500 Body temperature 97.9 [degF] Pacc 3 Work Phone: [facility] 08-13-2023 13:14-0500 Body weight 102.06 kg Pacc 3 Work Phone: [facility] 08-13-2023 13:14-0500 Diastolic blood pressure 88 mm[Hg] Pacc 3 Work Phone: [facility] 08-13-2023 13:14-0500 Heart rate 79 /min Pacc 3 Work Phone: [facility] 08-13-2023 13:14-0500 Respiratory rate 20 /min Pacc 3 Work Phone: [facility] 08-13-2023 13:14-0500 SaO2% (BldA) [Mass fraction] 97 % Pacc 3 Work Phone: [facility] 08-13-2023 13:14-0500 Systolic blood pressure 144 mm[Hg] Pacc 3 Work Phone: [facility] 08-13-2023 09:50-0500 Body height 162.6 cm Dao Dixon MD Work Phone: [facility] 08-13-2023 09:50-0500 Body weight 102.06 kg Dao Dixon MD Work Phone: [facility] 08-13-2023 09:50-0500 Diastolic blood pressure 86 mm[Hg] Dao Dixon MD Work Phone: [facility] 08-13-2023 09:50-0500 Heart rate 77 /min Dao Dixon MD Work Phone: [facility] 08-13-2023 09:50-0500 SaO2% (BldA) [Mass fraction] 97 % Dao Dixon MD Work Phone: [facility] 08-13-2023 09:50-0500 Systolic blood pressure 163 mm[Hg] Dao Dixon MD Work Phone: [facility] 06-29-2023 11:13-0400 Body height 164 cm Andrew Wing MD Work Phone: [facility] 06-29-2023 11:13-0400 Body temperature 97.39 [degF] Andrew Wing MD Work Phone: [facility] 06-29-2023 11:13-0400 Body weight 102.78 kg Andrew Wing MD Work Phone: [facility] 06-29-2023 11:13-0400 Diastolic blood pressure 77 mm[Hg] Andrew Wing MD Work Phone: [facility] 06-29-2023 11:13-0400 Heart rate 64 /min Andrew Wing MD Work Phone: [facility] 06-29-2023 11:13-0400 Respiratory rate 16 /min Andrew Wing MD Work Phone: [facility] 06-29-2023 11:13-0400 SaO2% (BldA) [Mass fraction] 98 % Andrew Wing MD Work Phone: [facility] 06-29-2023 11:13-0400 Systolic blood pressure 159 mm[Hg] Andrew Wing MD Work Phone: [facility] 06-08-2023 14:41-0400 Diastolic blood pressure 78 mm[Hg] Philip Francois MD Work Phone: [facility] 06-08-2023 14:41-0400 Heart rate 60 /min Philip Francois MD Work Phone: [facility] 06-08-2023 14:41-0400 Respiratory rate 15 /min Philip Francois MD Work Phone: [facility] 06-08-2023 14:41-0400 SaO2% (BldA) [Mass fraction] 99 % Philip Francois MD Work Phone: [facility] 06-08-2023 14:41-0400 Systolic blood pressure 145 mm[Hg] Philip Francois MD Work Phone: [facility] 06-08-2023 14:05-0400 Body temperature 97.5 [degF] Philip Francois MD Work Phone: [facility] 05-08-2023 13:46-0400 Blood Pressure Location Salbador HEADLEYL [facility] [place] 05-08-2023 13:46-0400 Diastolic blood pressure 88 mm[Hg] Salbador NILL [facility] [place] 05-08-2023 13:46-0400 Heart rate 80 /min Salbador NILL [facility] [place] 05-08-2023 13:46-0400 Respiratory rate 16 /min Salbador NILL [facility] [place] 05-08-2023 13:46-0400 Systolic blood pressure 128 mm[Hg] Sal[facility]ador KAYODEL [facility] [place] Encounters Encounter Date Encounter Type Care Provider Facility Start: 12-19-2023 End: 12-19-2023 ambulatory PHILIP FRANCOIS Facility:[facility] Start: 12-19-2023 Encounter for other preprocedural examination [facility] Start: 12-19-2023 End: 12-19-2023 Admission to establishment [address] [place] [id number] Work Phone: [place] Start: 12-19-2023 End: 12-19-2023 ambulatory [facility] 3 Work Phone: Pre Anesthesia Comment on above: Pre-op evaluation (P rimary Dx); Other iron deficiency anemia; Hypothyroidism, unspecified type; Hyperlipidemia, unspecified hyperlipidemia type; Hypertension, unspecified type; PONV (postoperative nausea and vomiting); Malignant neoplasm of sigmoid colon (HCC); Class 2 obesity with body mass index (BMI) of 37.0 to 37.9 in adult, unspecified obesity type, unspecified whether serious comorbidity present Start: 12-19-2023 End: 12-19-2023 Preprocedural examination done [facility] 3 Work Phone: [facility] Work Phone: Start: 12-05-2023 End: 12-05-2023 ambulatory ANDREW WING Facility:[facility] Start: 11-28-2023 Telephone encounter Lidia palomo RN Work Phone: Hematology/Oncology Comment on above: Care Coordination (S urgery Update; Appointments) Start: 11-23-2023 End: 11-26-2023 ambulatory Chair 20 Karla Work Phone: Hematology/Oncology Comment on above: Malignant neoplasm o f sigmoid colon (HCC) (Primary Dx); Rectal cancer (HCC) Start: 11-22-2023 Telephone encounter Philip peck MD Work Phone: General Surgery Comment on above: Opened In Error Start: 11-21-2023 End: 11-21-[address] Nutrition [address] Mor[address] RD Work Phone: Nutrition Therapy Comment on above: Nutrition Assessment Start: 11-21-2023 End: 11-21-2023 Office outpatient visit 25 minutes Andrew Wing MD Work Phone: Hematology/Oncology Comment on above: Malignant neoplasm o f sigmoid colon (HCC) (Primary Dx) Start: 11-21-2023 End: 11-22-2023 ambulatory Lab[facility] Karla Work Phone: Hematology/Oncology Comment on above: Malignant neoplasm o f sigmoid colon (HCC) Malignant neoplasm o f sigmoid colon (HCC) (Primary Dx) Start: 11-13-2023 End: 11-13-2023 ambulatory PHILIP FRANCOIS Facility:[facility] Start: 11-07-2023 End: 11-07-2023 ambulatory ANDREW WING Facility:[facility] Start: 10-26-2023 End: 10-26-2023 ambulatory ANDREW ABHUY Facility: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) (Primary Dx) Start: 10-24-2023 End: 10-24-2023 ambulatory [facility] Karla Work Phone: Hematology/Oncology Comment on above: Malignant neoplasm o f sigmoid colon (HCC) Other iron deficienc y anemia (Primary Dx); Malignant neoplasm of sigmoid colon (HCC) Start: 10-18-2023 Telephone encounter Lidia palomo RN Work Phone: Hematology/Oncology Comment on above: Care Coordination (P roductive Cough) Start: 10-16-2023 Telephone encounter Lidia palomo RN Work Phone: Hematology/Oncology Comment on above: Care Coordination (I nsurance Denial) Start: 10-12-2023 End: 10-15-2023 ambulatory Chair 20 Karla Work Phone: Hematology/Oncology Comment on above: Malignant neoplasm o f sigmoid colon (HCC) (Primary Dx); Rectal cancer (HCC) Start: 10-10-2023 End: 10-10-2023 ambulatory ELIZA MORALES Facility:[facility] Start: 10-10-2023 End: 10-10-2023 ambulatory ANDREW WING Facility:[facility] Start: 09-26-2023 End: 09-26-2023 ambulatory ELIZA MORALES Facility:[facility] Start: 09-26-2023 End: 09-26-2023 ambulatory ANDREW ABHUY Facility:[facility] Start: 09-14-2023 End: 09-14-2023 ambulatory ANDREW WING Facility:[facility] Start: 09-12-2023 End: 09-13-2023 ambulatory ANDREW WING Facility:[facility] Start: 09-07-2023 End: 09-07-2023 ambulatory ANDREW WING Facility:[facility] Start: 08-31-2023 End: 08-31-2023 ambulatory ANDREW TINSLEYELISABETH Facility:[facility] Start: 08-30-2023 Telephone encounter Judit CUELLO Work Phone: [facility] Comment on above: Results Start: 08-29-2023 End: 08-29-2023 ambulatory ELIZA MORALES Facility:[facility] Start: 08-29-2023 End: 08-29-[address] Work Phone: [place] Start: 08-29-2023 End: 08-29-2023 Nutrition therapy Eliza Morales RD Work Phone: Nutrition Therapy Comment on above: Nutrition Assessment Start: 08-29-2023 End: 08-30-2023 ambulatory ANDREWANNALISE TINSLEYELISABETH Facility:[facility] Start: 08-24-2023 Telephone encounter Lidia palomo RN Work Phone: Hematology/Oncology Comment on above: Care Coordination (P t Update) Start: 08-22-2023 End: 08-22-2023 ambulatory [facility] Facility:[facility] Start: 08-21-2023 End: 08-21-2023 ambulatory Judit Hong LGRhonda Work Phone: [facility] Comment on above: Malignant neoplasm o f sigmoid colon (HCC) (Primary Dx); Family history of colon cancer; Family history of brain cancer First Time Treatment Education (Oxaliplatin, Leucovorin, & 5FU) Start: 08-21-2023 Telephone encounter Andrew del valle MD Work Phone: Hematology/Oncology Start: 08-21-2023 End: 08-21-2023 Telemedicine consultation with patient Judit CUELLO Work Phone: [facility] Start: 08-15-2023 End: 08-15-2023 ambulatory JOSE Benitez MICHELLEMaurice Facility:[facility] Start: 08-14-2023 Telephone encounter Lidia palomo RN Work Phone: Hematology/Oncology Comment on above: Care Coordination (A ntiemetics) Start: 08-13-2023 End: 08-13-2023 ambulatory [facility] Start: 08-13-2023 End: 08-13-2023 Admission to [facility] Work Phone: [place] Start: 08-13-2023 End: 08-13-2023 [facility] Work Phone: Pre Anesthesia Comment on above: Pre-op evaluation (P rimary Dx); Hyperlipidemia, unspecified hyperlipidemia type; Hypertension, unspecified type; Class 2 obesity with body mass index (BMI) of 38.0 to 38.9 in adult, unspecified obesity type, unspecified whether serious comorbidity present; Hypothyroidism, unspecified type; PONV (postoperative nausea and vomiting); Rectal cancer (HCC) Start: 08-13-2023 End: 08-13-2023 Preprocedural examination done [facility] Work Phone: [facility] Work Phone: Start: 08-13-2023 End: 08-13-2023 ambulatory DAO DIXON Facility:[facility] Start: 08-13-2023 End: 08-13-2023 Patient encounter procedure Dao Dixon MD Work Phone: Pulmonology Comment on above: Lung nodule (Primary Dx); Rectal cancer (HCC) Start: 08-13-2023 [facility] JOSE M SITA Facility: [facility] Start: 08-13-2023 End: 08-13-2023 Subsequent hospital visit by physician Ekg/Stress [facility] Work Phone: Cardiovascular Testing Comment on above: Lung nodule [R91.1] Start: 08-10-2023 Telephone encounter Nya Sterling [facility] Radiology Procedure Start: 07-27-2023 End: 07-27-2023 ambulatory ANDREW WING Facility:[facility] Start: 07-26-2023 Telephone encounter [facility] del [facility]le MD [facility] Comment on above: Appointment Referral Information (Port Placement) Start: 07-20-2023 Telephone encounter Andrew del valle MD Work Phone: [facility] Comment on above: Consult Start: 07-20-2023 End: 07-20-2023 ambulatory JOSE Benitez Maurice Facility:[facility] Start: 07-13-2023 End: 07-13-2023 ambulatory ANDREW LAUREANOAR Facility:[facility] Start: 07-06-2023 End: 07-06-2023 ambulatory PHILIP FRANCOIS Facility:[facility] Start: 07-04-2023 Telephone encounter Ai Bansal Hematology/Oncology Comment on above: Results Start: 06-29-2023 Telephone encounter Andrew del valle MD Work Phone: [facility] Comment on above: Results Start: 06-29-2023 End: 06-29-2023 ambulatory ANDREW WING Facility:[facility] Start: 06-29-2023 End: 06-29-2023 Office outpatient new 60 minutes Andrew Wing MD Work Phone: Hematology/Oncology Comment on above: Malignant neoplasm o f sigmoid colon (HCC) (Primary Dx); Iron deficiency anemia due to chronic blood loss Start: 06-25-2023 Telephone encounter Philip peck MD Work Phone: Colorectal Surgery Comment on above: Patient Question Start: 06-22-2023 End: 06-22-2023 ambulatory JOSE BUCKNER Facility:[facility] Start: 06-21-2023 Orders Only Philip marques MD Work Phone: Colorectal Surgery Comment on above: Rectosigmoid cancer (HCC) (Primary Dx) [employer] Folder - O ther (Surgery planning) Start: 06-11-2023 Telephone encounter Philip peck MD Work Phone: Colorectal Surgery Start: 06-08-2023 ambulatory PHILIP FRANCOIS Facili ty:[facility] Start: 06-08-2023 End: 06-08-2023 Subsequent hospital visit by physician Philip Francois MD Work Phone: [facility] Endoscopy - ENDO Comment on above: Rectal cancer (HCC) [C20] Start: 06-05-2023 End: 06-05-2023 ambulatory JOSE BUCKNER Facility:[facility] Start: 06-05-2023 End: 06-05-2023 ambulatory SALBADOR Nathalia LEE Facility:[facility] Start: 05-30-2023 End: 05-31-2023 ambulatory Salbador HEADLEYL Facility:[id number] Start: 05-08-2023 End: 05-09-2023 ambulatory Salbador Sloan KAYODEL Facility:[facility] Start: 05-08-2023 End: 05-08-2023 Patient encounter procedure Salbador Nathalia [facility] Nill/Said Sarah Start: 11-29-2022 End: 11-30-[address] JOSE BUCKNER . Facility: Start: 08-22-2022 End: 08-23-[address] JOSE BUCKNER . Facility: Start: 07-07-2022 End: 07-08-2022 ambulatory BELEN BLOOM Facility: Start: 07-05-2022 End: 07-05-2022 ambulatory BELENLUCILLE CAMACHOS [facility] Procedures Date Procedure Procedure Detail Performing Clinician Start: 11-21-2023 Blood count complete auto&auto difrntl wbc Andrew Wing MD Work Phone: Start: 10-24-2023 Blood count complete auto&auto difrntl wbc Andrew Wing MD Work Phone: Start: 08-13-2023 Ecg routine ecg w/le ast 12 lds i&r only Dao Dixon MD Work Phone: Start: 08-13-2023 Ct thorax w/o contra st material Dao Dixon MD Work Phone: Start: 06-08-2023 Sigmoidoscopy flx dx w/collj spec br/wa if pfrmd Philip Francois MD Work Phone: Start: 03-10-2020 Colonoscopy Salbador NI LL Colonoscopy Salbador HEADLEYL Excision of lipoma Salbador VERA Comment on above: right flank Fallopian tube excision Keyon LEE Vaginal hysterectomy Salbador LEE Plan of Treatment Date Care Activity Detail Author Start: 03-27-2033 Urine microalbumin profile DTa P,Tdap,Td Vaccine (3 - Td or Tdap) [facility] Start: 06-08-2028 Colorectal Cancer Screening Colorectal Cancer Screening [facility] Start: 06-08-2028 Screening for malign ant neoplasm of colon [facility] Start: 06-08-2028 SIGMOIDOSCOPY SIGMOIDOSCOPY [facility] Start: 12-18-2026 Diabetes Screening Diabetes Screenin g [facility] Start: 11-20-2026 Diabetes Screening Diabetes Screentx g [facility] Start: 10-24-2026 Diabetes Screening Diabetes Screentx g [facility] Start: 10-10-2026 Diabetes Screening Diabetes Screenin g [facility] Start: 08-29-2026 [facility] Start: 07-13-2026 Diabetes Screening Diabetes Screentx g [facility] Start: 06-29-2026 Diabetes Screening Diabetes Screentx g [facility] Start: 01-11-2024 End: 04-11-2024 Carcinoembryonic Ag [Mass/volume] in Serum or Plasma CEA BLD Lab Routine Malignant neoplasm of sigmoid colon (HCC) Expected: 01/11/2024, Expires: 04/11/2024 [facility] Work Phone: Comment on above: Expected: 01/11/2024 , Expires: 04/11/2024 Start: 01-11-2024 End: 04-11-2024 Comprehensive metabolic 2000 panel - Serum or Plasma COMP METABOLIC PANEL Lab Routine Malignant neoplasm of sigmoid colon (HCC) Expected: 01/11/2024, Expires: 04/11/2024 [facility] Work Phone: Comment on above: Expected: 01/11/2024 , Expires: 04/11/2024 Start: 11-07-2023 End: 10-24-2024 Carcinoembryonic Ag [Mass/volume] in Serum or Plasma CEA BLD Lab Routine Malignant neoplasm of descending colon (HCC) Expected: 11/07/2023 (Approximate), Expires: 10/24/2024 [facility] Work Phone: Comment on above: Expected: 11/07/2023 (Approximate), Expires: 10/24/2024 Start: 11-07-2023 End: 10-24-2024 CBC W Auto Differential panel - Blood CBC + DIFF Lab Routine Malignant neoplasm of descending colon (HCC) Expected: 11/07/2023 (Approximate), Expires: 10/24/2024 [facility] Work Phone: Comment on above: Expected: 11/07/2023 (Approximate), Expires: 10/24/2024 Start: 11-07-2023 End: 10-24-2024 Comprehensive metabolic 2000 panel - Serum or Plasma COMP METABOLIC PANEL Lab Routine Malignant neoplasm of descending colon (HCC) Expected: 11/07/2023 (Approximate), Expires: 10/24/2024 [facility] Work Phone: Comment on above: Expected: 11/07/2023 (Approximate), Expires: 10/24/2024 Start: 11-07-2023 End: 11-22-2024 CT Abdomen and Pelvis W contrast IV CT ABD/PEL W IVCON Radiology Routine Malignant neoplasm of descending colon (HCC) Expected: 11/07/2023 (Approximate), Expires: 11/22/2024 [facility] Work Phone: Comment on above: Expected: 11/07/2023 (Approximate), Expires: 11/22/2024 Start: 11-07-2023 End: 11-22-2024 CT Chest W contrast IV CT CHEST W IVCON Radiology Routine Malignant neoplasm of descending colon (HCC) Expected: 11/07/2023 (Approximate), Expires: 11/22/2024 [facility] Work Phone: Comment on above: Expected: 11/07/2023 (Approximate), Expires: 11/22/2024 Start: 09-10-2023 Behavioral Health Screening Behavioral Health Screening [facility] Start: 09-10-2023 Depression Assessment Depression Ass essment [facility] Start: 08-29-2023 End: 08-21-2024 Carcinoembryonic Ag [Mass/volume] in Serum or Plasma CEA BLD Lab Routine Malignant neoplasm of sigmoid colon (HCC) Iron deficiency anemia due to chronic blood loss Expected: 08/29/2023 (Approximate), Expires: 08/21/2024 [facility] Work Phone: Comment on above: Expected: 08/29/2023 (Approximate), Expires: 08/21/2024 Start: 08-29-2023 End: 08-21-2024 CBC W Auto Differential panel - Blood CBC + DIFF Lab Routine Malignant neoplasm of sigmoid colon (HCC) Iron deficiency anemia due to chronic blood loss Expected: 08/29/2023 (Approximate), Expires: 08/21/2024 [facility] Work Phone: Comment on above: Expected: 08/29/2023 (Approximate), Expires: 08/21/2024 Start: 08-29-2023 End: 08-21-2024 Cobalamin (Vitamin B12) [Mass/volume] in Serum or Plasma VITAMIN B12 BLOOD Lab Routine Malignant neoplasm of sigmoid colon (HCC) Iron deficiency anemia due to chronic blood loss Expected: 08/29/2023 (Approximate), Expires: 08/21/2024 [facility] Work Phone: Comment on above: Expected: 08/29/2023 (Approximate), Expires: 08/21/2024 Start: 08-29-2023 End: 08-21-2024 Comprehensive metabolic 2000 panel - Serum or Plasma COMP METABOLIC PANEL Lab Routine Malignant neoplasm of sigmoid colon (HCC) Iron deficiency anemia due to chronic blood loss Expected: 08/29/2023 (Approximate), Expires: 08/21/2024 [facility] Work Phone: Comment on above: Expected: 08/29/2023 (Approximate), Expires: 08/21/2024 Start: 08-29-2023 End: 08-21-2024 Ferritin [Mass/volume] in Serum or Plasma FERRITIN BLD Lab Routine Malignant neoplasm of sigmoid colon (HCC) Iron deficiency anemia due to chronic blood loss Expected: 08/29/2023 (Approximate), Expires: 08/21/2024 [facility] Work Phone: Comment on above: Expected: 08/29/2023 (Approximate), Expires: 08/21/2024 Start: 08-29-2023 End: 08-21-2024 Folate [Mass/volume] in Serum or Plasma FOLATE SERUM Lab Routine Malignant neoplasm of sigmoid colon (HCC) Iron deficiency anemia due to chronic blood loss Expected: 08/29/2023 (Approximate), Expires: 08/21/2024 [facility] Work Phone: Comment on above: Expected: 08/29/2023 (Approximate), Expires: 08/21/2024 Start: 08-29-2023 End: 08-21-2024 Iron and Iron binding capacity panel - Serum or Plasma IRON + TIBC Lab Routine Malignant neoplasm of sigmoid colon (HCC) Iron deficiency anemia due to chronic blood loss Expected: 08/29/2023 (Approximate), Expires: 08/21/2024 [facility] Work Phone: Comment on above: Expected: 08/29/2023 (Approximate), Expires: 08/21/2024 Start: 08-21-2023 End: 11-20-2023 MISC SEND OUT TST 1 [facility] Work Phone: Comment on above: Expected: 08/21/2023 , Expires: 11/20/2023 Start: 08-04-2023 Covid-19 Vaccine () Covid-19 Vaccine () [facility] Start: 06-29-2023 End: 06-29-2024 CBC W Auto Differential panel - Blood CBC + DIFF Lab Routine Malignant neoplasm of sigmoid colon (HCC) Iron deficiency anemia due to chronic blood loss Expected: 06/29/2023, Expires: 06/29/2024 [facility] Work Phone: Comment on above: Expected: 06/29/2023 , Expires: 06/29/2024 Start: 06-29-2023 End: 06-29-2024 Comprehensive metabolic 2000 panel - Serum or Plasma COMP METABOLIC PANEL Lab Routine Malignant neoplasm of sigmoid colon (HCC) Iron deficiency anemia due to chronic blood loss Expected: 06/29/2023, Expires: 06/29/2024 [facility] Work Phone: Comment on above: Expected: 06/29/2023 , Expires: 06/29/2024 Start: 05-11-2023 Covid-19 Vaccine () Covid-19 Vaccine () [facility] Start: 05-11-2023 Influenza vaccination Influenza Vacc ine (#1) [facility] Start: 02-09-2023 Screening for malign ant neoplasm of colon Cologuard (FIT-DNA) [facility] Start: 09-10-2022 Depression Assessment Depression Ass essment [facility] Start: 2009 Shingrix Vaccine (1 of 2) Brown grix Vaccine (1 of 2) [facility] Start: 02-03-2004 Cologuard (FIT-DNA) Cologuard (FIT-D NA) [facility] Start: 02-03-2004 Colonoscopy Colonoscopy [facility] Start: 02-03-[address] COLONOGRAPHY [facility] Start: 02-03-2004 Diabetes Screening Diabetes Screenin g [facility] Start: 02-03-2004 Fecal Occult Blood Fecal Occult Bloo d [facility] Start: 02-03-2004 Lipid 1996 panel - S vasyl or Plasma Lipid Screening [facility] Start: 02-03-2004 Lipid panel Lipid Screening [facility] Start: 02-03-2004 Screening for malign ant neoplasm of colon [facility] Start: 1999 Mammography Mammogram Screening [facility] Start: 1999 Screening for malign ant neoplasm of breast Mammogram Screening [facility] Start: 1989 HPV Testing HPV Testing [facility] Start: 1989 Screening for malign ant neoplasm of cervix HPV Testing [facility] Start: 02-03-1980 Pap Testing Pap Testing [facility] Start: 02-03-1980 Screening for malign ant neoplasm of cervix Pap Testing [facility] Start: 1978 Urine microalbumin profile DTa P,Tdap,Td Vaccine (1 - Tdap) [facility] Start: 1977 Annual PCP Team [employer] jesse Disease Visit Annual PCP Team Chronic Disease Visit [facility] Start: 1977 BP Controlled (<130/80) BP Controlle d (<130/80) [facility] Start: 1977 Hepatitis C Screening Hepatitis C [facility] Start: 1977 Hepatitis C screening Hepatitis C [facility] Start: 1977 HIV Screening HIV Screening [facility] Start: 1977 HIV screening HIV Screening [facility] Start: 1965 Pneumococcal vaccination [facility] ECG COMPLETE ECG COMPLETE ECG Routine Lung nodule 08/13/2023 8:09 AM EST [facility] Work Phone: OUTSIDE SURG PATH SL LISETTE REVIEW OUTSIDE SURG PATH SLIDE REVIEW Lab Routine Ordered: 06/12/2023 [facility] Work Phone: Comment on above: Ordered: 06/12/2023 End: 07-28-[address] attenuation skull base mid-thigh NM PET/CT SKULL-THIGH INITIAL Radiology Routine Malignant neoplasm of sigmoid colon (HCC) Iron deficiency anemia due to chronic blood loss 1 Occurrences starting 06/29/2023 until 07/28/2024 [facility] Work Phone: Comment on above: 1 Occurrences starti ng 06/29/2023 until 07/28/2024 [facility] OR Immunizations Immunization Date Immunization Notes Care Provider Aaron lemons 06-27-2023 respiratory syncytia l virus (RSV) vaccine, adjuvanted (AREXVY) Andrew Wing MD Work Phone: [facility] 06-09-2023 Influenza, injectabl e, Madin [place] Canine Kidney, preservative free, quadrivalent Andrew Wing MD Work Phone: [facility] 03-27-2023 tetanus toxoid, redu juancho diphtheria toxoid, and acellular pertussis vaccine, adsorbed Andrew Wing MD Work Phone: [facility] 06-21-2022 influenza, injectabl e, quadrivalent, contains preservative Andrew Wing MD Work Phone: [facility] 06-21-2022 influenza virus vaccine, unspecified formulation Philip Francois MD Work Phone: [facility] 06-07-2022 SARS-CoV-2 (COVID-19 ) [id number] Salbador LEE [facility] Comment on above: Result Comment: 2022: TPV60 12-24-2021 SARS-CoV-2 mRNA ([id number]-mmdxj se) vaccine Salbador NILL [facility] 06-13-2021 SARS-CoV-2 (COVID-19 ) mRNA BNT-162b2 vax Salbador NILL [facility] 11-16-2020 SARS-CoV-2 (COVID-19 ) mRNA BNT-162b2 vax Salbador NILL [facility] Comment on above: Result Comment: 2022: TPV60 10-26-2020 SARS-CoV-2 (COVID-19 ) mRNA BNT-162b2 vax Salbador NILL [facility] Comment on above: Result Comment: 2022: TPV22 05-27-2020 influenza, injectabl e, quadrivalent, contains preservative Andrew Wing MD Work Phone: [facility] 07-16-2019 influenza, injectabl e, quadrivalent, contains preservative Andrew Wing MD Work Phone: [facility] 06-23-2019 influenza, seasonal, injectable Andrew Wing MD Work Phone: [facility] 04-01-2019 zoster vaccine recombinant Andrew Wing MD Work Phone: [facility] 10-02-2018 zoster vaccine recombinant Andrew Wing MD Work Phone: [facility] 06-18-2018 influenza, injectabl e, quadrivalent, contains preservative Andrew Wing MD Work Phone: [facility] 07-17-2017 influenza, injectabl e, quadrivalent, contains preservative Andrew Wing MD Work Phone: [facility] 07-01-2015 influenza, seasonal, injectable, preservative free Andrew Wing MD Work Phone: [facility] 01-22-2015 zoster vaccine, live Andrew hollis MD Work Phone: [facility] 06-02-2013 tetanus toxoid, redu juancho diphtheria toxoid, and acellular pertussis vaccine, adsorbed Andrew Wing MD Work Phone: [facility] Payers Date Payer Category Payer Unknown [id number] 2021 Unknown [id number] 2021 Unknown [id number] 1959 Unknown [id number] 1959 Unknown [id number] 1959 Unknown [id number] 1959 Unknown [id number] 1959 Unknown [id number] 1959 Unknown [id number] Social History Date Type Detail Facility Start: 05-08-2023 End: 06-29-2023 Tobacco smoking status Never smoked tobacco (finding) [facility] [place] Tobacco smoking status Never [facility] [place] Start: 06-05-2023 End: 07-18-2023 Sex Assigned At Female [facility] Start: 06-05-2023 Tobacco smoking status NYIS Tobacco smoking consumption unknown [facility] Start: 06-05-2023 End: 07-18-2023 History of Social function [facility] Start: 1960 Sex Assigned At Not on file C [facility] Start: 06-29-2023 Tobacco use and exposure Smokeless tobacco non-user [facility] Start: 06-29-2023 End: 12-19-2023 Alcohol intake Current drinker of alcohol (finding) [facility] Start: 06-29-2023 Alcohol Comment socially [place] Start: 08-13-2023 Alcohol Comment 2 drinks a cou ple times a month [facility] Medical Equipment Procedure Code Equipment Code Equipment Origin al Text Equipment Identifier Dates Power Port-08/15/2023 [id number] Sta rt: 08-15-2023 Functional Status Date Assessment Result Facility 05-08-2023 Functional Status N/A [facility] Clinical Notes 07-05-2022 to 12-19-2023 Sanam Salazar APRN.PAROLE AGENT - 12/19/2023 7:50 AM EDTPatient InstructionsTelephone Encounter - Lidia Teran RN - 11/28/2023 11:42 AM Carolina Delgadillo RN - 11/21/2023 11:40 AM EDT Note Date & Type Note Facility 12-19-2023 History and physical note HISTORY AND PHYSICAL EXAMINATION SERVICE DATE: 12/19/2023 SERVICE TIME: 7:40 AM PRIMARY CARE PHYSICIAN: Jose Buckner MD REASON FOR VISIT: Nancy Sue is a 63 year old female who is scheduled for LAPAROSCOPIC COLECTOMY SIGMOID COLON W/ COLORECTAL ANASTOMOSIS at the request of Dr. Philip Francois for consultation. My final recommendation will be communicated back to the requesting physician by way of shared medical record or letter. The patient has the following: ACTIVE PROBLEM LIST Rectal Cancer (Hcc) Malignant Neoplasm of Sigmoid Colon (Hcc) Hld (Hyperlipidemia) Htn (Hypertension) Class 2 Obesity With Body Mass Index (Bmi) of 37.0 to 37.9 in Adult Hypothyroidism Ponv (Postoperative Nausea and Vomiting) Iron Deficiency Anemia Subjective CHIEF COMPLAINT: Pre-op exam HPI: This is a 63 year old female that is scheduled for the above procedure. Patient has colon cancer. She denies any pain at this time. Denies any N/V/D or bloody stools. PAST MEDICAL HISTORY Diagnosis Date Anemia High cholesterol HTN (hypertension) Hypothyroidism PAST SURGICAL HISTORY Procedure Laterality Date ;TOTAL HYSTERECTMY TUBE(S) &/OR OVARY BRONCHOSCOPY W/PLACEMENT TRACHEAL STENT COLONOSCOPY SCREENING LIPOMA (MEDIUM) FAMILY HISTORY Problem Relation Age of Onset Stroke Mother COPD Father Heart Father Colon Cancer Brother SOCIAL HISTORY: Social History Tobacco Use Smoking status: Never Smokeless tobacco: Never Vaping Use Vaping Use: Never used Substance Use Topics Alcohol use: Yes Comment: 2 drinks a couple times a month Drug use: Never Prior to Admission medications as of 12/19/23 0740 Medication Sig Last Dose Taking iron glycinate,polysacch cmplx (IRON BIS GLYCIN-FE P-SAC CMPLX ORAL) Take 20 mg by mouth once daily. Taking Yes collagen, hydrolysate, bovine, (COLLAGEN, HYDR, BOVINE,, BULK,) 100 % powd Take 1 Dose by mouth once daily. Taking Yes ondansetron (ZOFRAN) 8 mg tablet Take 1 tablet by mouth every 8 hours as needed for nausea/vomiting. Taking Yes prochlorperazine (COMPAZINE) 10 mg tablet Take 1 tablet by mouth every 6 hours as needed. Taking Yes folic acid 1 mg tablet Take 1 mg by mouth once daily. Taking Yes acetaminophen/diphenhydramine (TYLENOL PM ORAL) Take 1 Dose by mouth as needed. Taking Yes levothyroxine (SYNTHROID) 50 mcg tablet Take 50 mcg by mouth once daily. Taking Yes omega 4-zre-zce-fish oil 120-180-500 mg cap Take 500 mg by mouth once daily. Taking Yes neomycin 500 mg tablet Take 2 tablets by mouth as directed. Take 2 tablets at 6 pm, again at 7 pm and at 11 pm the evening prior to surgery metroNIDAZOLE (FLAGYL) 500 mg tablet Take 1 tablet by mouth as directed. Take 1 tablet at 6 pm, another at 7 pm and again at 11 pm, the evening prior to surgery iv contrast (will be provided with radiology test) CT Chest ABD/PEL-Inject, intravenously, once for 1 dose.No IV access, insert saline lock prior to the beginning of sedation, infusion, injection of imaging exam. Discontinue saline lock post exam. If Pt. has a central line or IVAD, may access for administration according to line specific nursing protocol. Once exam is complete flush line and de-access according to line specific nursing protocol in the CT contrast administration guidelines link. Patient not taking: Reported on 11/13/2023 enteric contrast (will be provided with radiology test) For CT CHESTABD/PEL W IVCON Routine order Administer, As Directed One Time Only, via Oral, Rectal, both Oral and Rectal, Enteric Tube, Stoma or Indwelling Catheter, Enteric Contrast as designated per enteric contrast guidelines Patient not taking: Reported on 11/13/2023 Ascorbic Rrps-Alfmlpgxl-Cvj (EMERGEN-C) 1,000 mg pwep Take 1 Packet by mouth once daily. Pramoxine-Hydrocortisone (ANALPRAM-HC) 1-1 % rectal cream 1 g by RECTAL route two times a day as needed (rectal discomfort). No medication comments found. ALLERGIES Allergen Reactions Diezyog-Ukf-Lqj Red* Other: See Comments, Unknown, Myalgia myalgias COVID VACCINATION STATUS: Fully vaccinated REVIEW OF SYSTEMS: PAIN ASSESSMENT: General: No weight loss, malaise or fevers. Neuro: No history of TIA's, stroke, PROCESS ARTIST tumor, impaired sensorium, hemiplegia, paraplegia or quadraplegia. No neurological symptoms or problems. Respiratory: No history of current cough or dyspnea, or pneumonia in the past 6 weeks. No history of respiratory/pulmonary symptoms or problems. 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 : Denies, No LMP recorded. Patient has had a hysterectomy. Endocrine: Hypothyroidism Hematology: Iron deficiency anemia Oncology: See HPI Psych: No history of psychiatric symptoms or problems. Musculoskeletal: Negative for joint pain or swelling, back pain or muscle pain. Skin: Negative for lesions, rash and itching. Objective PHYSICAL EXAM: VITALS: BP 142/73 Pulse 74 Temp (Src) 97.8 (Temporal Artery) Resp 16 Ht 5' 4.69 (1.64m) Wt 222 lb 14.2 oz (101.1kg) SpO2 98% BMI 37.45 kg/(m^2). General: Alert and oriented, No acute distress Skin: Normal color, no rash, no lesions. HEENT: EOM, pupils equal, round and reactive. Cardiovascular: Normal S1 & S2, no rubs, murmurs or gallops. No JVD. Pulse regular. Lungs: Normal breath sounds, no wheezes or crackles. Abdomen: Soft, non-tender, no rigidity., No masses or organomegaly. Extremities: No deformity, no edema or tenderness, no joint swelling or clubbing. Neurological: Normal cognition and motor skills. Gait normal. No weakness or sensory deficit. Pulses: Carotid and radial pulses normal +2. Diagnostic tests reviewed for today's visit: Lab Value Units Date High Low HB 12.2 g/dL 12/05/2023 15.5 11.5 HCT 37.3 % 12/05/2023 46.0 36.0 WBC 5.51 k/uL 12/05/2023 11.00 3.70 PLT 64 k/uL 12/05/2023 400 150 NA 143 mmol/L 11/21/2023 144 136 K 4.3 mmol/L 11/21/2023 5.1 3.7 GLUC 110 mg/dL 11/21/2023 99 74 BUN 14 mg/dL 11/21/2023 21 7 CREAT 0.84 mg/dL 11/21/2023 0.96 0.58 PTSEC No results within date range. INR No results within date range. APTT No results within date range. ALT 35 U/L 11/21/2023 38 7 AST 43 U/L 11/21/2023 35 13 TBILI 0.5 mg/dL 11/21/2023 1.3 0.2 TSH No results within date range. EKG 08/13/23 Sinus rhythm Inferior infarct, old Abnormal ECG CT Chest 11/07/23 1. Streaky scarring/discoid atelectasis in the left upper lobe, increased since 08/13/23. 2. Several subcentimeter nodular opacities measuring up to 8 mm, stable since 06/22/23. 3. Findings compatible with previous granulomatous disease. Assessment/Plan Iron deficiency anemia Assessment: managed with daily iron, stable S/p iron infusions Follows up with hematology Hemoglobin (g/dL) Date Value 12/05/2023 12.2 Hematocrit (%) Date Value 12/05/2023 37.3 WBC (k/uL) Date Value 12/05/2023 5.51 Hypothyroidism Assessment: managed with med, stable Follows up with PCP HLD (hyperlipidemia) Assessment: diet controlled Follows up with PCP HTN (hypertension) Assessment: not on medication at this time Follows up with PCP Date: BP: 12/19/2023 142/73 11/23/2023 133/76 11/21/2023 162/81 11/13/2023 148/86 PONV (postoperative nausea and vomiting) Assessment: noted Malignant neoplasm of sigmoid colon (HCC) Assessment: see HPI Class 2 obesity with body mass index (BMI) of 37.0 to 37.9 in adult Assessment: diet and exercise encouraged METS: Climb a flight of stairs or walk up a hill (5.50 METs) Patient denies any chest pain or undue shortness of breath with the above physical activity. ANESTHESIA FINDINGS: Intubation History: No history of difficult intubation Significant Anesthesia Considerations: Postop nausea/vomiting Airway Exam: General: Normal appearance Mallampati Score is CLASS II ULBT: Class I - Lower incisors can bite the upper lip above the dawna line Neck: Normal appearance and function, Distance from hyoid to mentum during neck extension is at least 3 finger breaths Mouth: Normal tongue size and Mouth opening greater than 2 finger breaths Dentition: Intact Airway History: No abnormal airway history PLAN This patient is optimally prepared for surgery pending LABS. CONSULTS: Patient does not require consults for optimization at this time. The Following Tests/Procedures Have Been Initiated: Labs not indicated per [facility] protocol, EKG not indicated per [facility] protocol Planned Anesthetic: Per anesthesia choice Instructions Given to Patient: Instructions located in the after visit summary. Patient given verbal and written preop instructions and voices comprehension and compliance. SIGNATURE: Sanam Salazar APRN.PAROLE AGENT PATIENT NAME: Nancy Sue DATE: December 19, 2023 TIME: 7:41 AM documented in this encounter [facility] 12-18-2023 Instructions Sanam Salazar APRN.MONTEZ - 12/18/2023 7:48 AM EDT PATIENT PREOPERATIVE INSTRUCTIONS Philip Francois MD has scheduled you for your procedure at this surgery center: [facility]: [phone] --[id number] [address]. Please check in on the 1st floor at registration desk 6. Please read below carefully for your personalized instructions. Dietary Restrictions: Follow all bowel prep instructions, clear liquids need to be stopped two hours prior to arrival Pre-Surgery Med Instructions Medication Instructions iron glycinate,polysacch cmplx (IRON BIS GLYCIN-FE P-SAC CMPLX ORAL) Stop 7 days before surgery collagen, hydrolysate, bovine, (COLLAGEN, HYDR, BOVINE,, BULK,) 100 % powd Stop 7 days before surgery ondansetron (ZOFRAN) 8 mg tablet As needed prochlorperazine (COMPAZINE) 10 mg tablet As needed folic acid 1 mg tablet Stop 7 days before surgery acetaminophen/diphenhydramine (TYLENOL PM ORAL) As needed levothyroxine (SYNTHROID) 50 mcg tablet Take the day of surgery with a small sip of water omega 5-wfm-uqw-fish oil 120-180-500 mg cap Stop 7 days before surgery If you start any new medications after today's visit, please contact the surgeon's office. Blood Thinning Medications: - Stop NSAIDS (Ibuprofen, Advil, Aleve, Motrin, Celebrex, Mobic, etc.) 7 days before surgery, as directed by your surgeon. - Stop Vitamin E, ALL multi-vitamins, herbals and dietary supplements 7 days before surgery. - You may take Tylenol (Acetaminophen) or any of your pain medications that do not contain aspirin or NSAIDS as needed. Important Reminders: - Candy, mints, and tobacco products are NOT permitted the morning of surgery. - Hearing aids, dentures and glasses may be worn the morning of surgery. - NO jewelry, body piercings, makeup, hairpins or contacts are to be worn the day of surgery. If you develop symptoms such as a fever, cold, or flu, or have other changes to your health within TWO DAYS of scheduled surgery or the morning of surgery, please contact the surgery center above. Personal Belongings: -Please have photo ID and insurance cards. -If you do not have a copy of advance directives on file with us, please bring a copy with you on the day of surgery. - Leave ALL valuables and money at home or with family members. For Outpatient Procedures: - YOU MUST HAVE A RESPONSIBLE EMAIL PRODUCER TAKE YOU HOME. A RANGE FEEDER OR WIRELESS SALES REPRESENTATIVE CANNOT BE MADE A RESPONSIBLE EMAIL PRODUCER. - We recommend that a responsible person stays with you overnight to take care of you. - You cannot stay in a hotel alone after outpatient surgery. You will not be permitted to have your surgery, if you do not have someone to take care of you. Arrival Time for Surgery: - The Surgery Center or hospital where you are having surgery will call the afternoon before surgery (or Sunday for Sunday surgery) with a scheduled arrival time. - If you have not heard by 4 pm, please contact the surgery center above. Please be aware that emergency situations arise, which may delay or change your surgical time. If this happens, we will notify you as soon as possible and regret any inconvenience. If you already have an Advance Directive, please fax a copy to [phone] or email to for it to be added to your chart. If you do not have an Advance Directive, you can find the appropriate form and more information at [email or web address]. We recommend that you complete the Advance Directive form found on the website and bring it with you the day of your surgery. It can be witnessed and scanned into your chart that day. documented in this encounter [facility] 11-28-2023 Miscellaneous Notes BRENDA/Darvin: Standing CBC order in place. Will need orders for CMP & CEA for her visit on 01/10. Orders pended. Lidia Teran RN Appointments made/canceled per request. Patient will picked edge sewing machine operator reminder at next appt. Notes in appt. Pt is scheduled to have surgery on 12/28/23. Notes it was advised she hold chemotherapy prior to. Dr Wing instructs to cancel pt's treatment on 12/05/23. Would like pt to still come in for labs only. Would also like pt's CBC checked again on 12/24/23. Will plan to see pt, for follow up, 2 weeks after surgery. Pt notified of the above and agrees. Clerical: Pt will be in for labs only on 12/04. Please cancel her provider and treatment appts. Cancel pump dc on 12/06. CBC on 12/24/23 F/U & labs w/ Dr Wing on 01/11/24. *Pt will picked edge sewing machine operator her appointment reminder when here for labs next week. Lidia Teran RN documented in this encounter [facility] 11-22-2023 Note [facility] 11-22-2023 Miscellaneous Notes I updated patient and her regarding tumor board recommendations. I explained to her that the recommendation is to ensure that the retroperitoneal node is due to metastatic colon cancer, especially since she has another primary tumor (NET). The next step at this point is surgical excision of portocaval or periceliac node for definitive diagnosis. Will plan for combined sigmoidectomy for the primary colon cancer at the same time. I explained this will be a combined case with Dr. Hernandez and we will plan for December given that she had chemo yesterday. Potential surgery date includes December 27. My office will call patient once the date is finalized. All questions answered. documented in this encounter [facility] 11-21-2023 Note [facility] 11-21-2023 History of Presen t illness Narrative Confirmed with Dr. Wing he does not want patient to get Venofer today. Tx nurse informed. Carolina Villagran, RN documented in this encounter [facility] 11-21-2023 Note [facility] 11-21-2023 Note [facility] 11-21-2023 Instructions Kimi Mccain - 11/21/2023 9:43 AM EDT Cycle 5 FOLFOX today. (FOxTROT JCO 09/2022) x 4 additional (8) cycles - Restage. Restage and consider resection +/- metastectomy vs. continued chemotherapy. Iron infusion today. Hydration on day of disconnect. RTC in 2 weeks for cycle 6. Labs preceding. documented in this encounter [facility] 11-21-2023 History of Presen t illness Narrative Images from the original note were not included. NAME: Nancy Sue CLINIC NO.: [id number] DATE OF SERVICE: November 21, 2023 (Dianne) Some elements in this clinic note that are critical to medical decision making have been carefully reviewed and included from a prior clinic note dated: October 24, 2023 (Dianne) Referring Provider: Philip Francois Additional Clinicians involved in Nancy Sue's care: Dr. Jose Buckner, Dr. Salbador Lee DIAGNOSIS: Sigmoid colon cancer ASSESSMENT: 63 year old with sigmoid adenocarcinoma pMMR that will need to complete staging studies prior to determination of surgery vs. systemic therapy. She was diagnosed 05/30/2023 on colonoscopy done for rectal bleeding that started in February 2023. Surprisingly not iron deficient. PET shows mesenteric and retroperitoneal LN's. Most consistent with stage IV disease. 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 Started FOLFOX on 08/29/2023. Cancer Staging Malignant neoplasm of sigmoid colon (HCC) Staging form: Colon and Rectum, AJCC 8th Edition - Clinical stage from 06/29/2023: Stage IVB (cTX, cNX, cM1b) - Signed by Andrew Wing MD on 07/20/2023 LN's identified are borderline - may be Overstaged. Pulmonary GPS Biopsy of Right lung lesion - Carcinoid. PLAN: Cycle 5 FOLFOX today. - dose reduce Oxaliplatin 65 / m2 and infusional 5-FU - 2000 /m2 (FOxTROT JCO 09/2022) x 4 additional (8) cycles - Restage after Restage and consider resection +/- metastectomy vs. continued chemotherapy. Hydration on day of disconnect. RTC in 2 weeks for cycle 6. Labs preceding. HPI: CASE HISTORY: Reverse Chronological Order 11/07/2023 - CT CAP: Chest: Streaky scarring/discoid atelectasis in the left upper lobe, increased since 08/13/23. Several subcentimeter nodular opacities measuring up to 8 mm, stable since 06/22/23. Findings compatible with previous granulomatous disease. A/P: Mild splenomegaly, increased in size since 06/22/23. Jeov-eb-mrvoxafc abdominal lymphadenopathy, stable. Increased streaky reticulation of the pelvic fat may represent post therapy changes or edema. Previously noted thickening of the rectosigmoid colon wall is less conspicuous. Sigmoid colon diverticulosis without evidence of diverticulitis. Nonobstructing left renal stones. 08/29/2023 - started FOLFOX 08/22/2023 - TB-FNA Right lower Lobe - Neoplastic cells present derived from low-grade neuroendocrine tumor 07/13/2023 - CT PET: Intense uptake along more than 7 cm of the sigmoid colon consistent with known primary, associated with mildly prominent with ddoq-zq-lahybwic FDG uptake in upper mesenteric and retroperitoneal lymphadenopathy. 0.7 cm right lower lobe lung nodule, below PET resolution. 07/06/2023 - CT Pelvis: Irregular circumferential distal sigmoid colonic wall thickening, extending over a length of 8 cm, compatible with known sigmoid colonic neoplasm. No metastatic disease within the pelvis. 06/22/2023 - CT Chest/Abd : Right lower lobe subcentimeter pulmonary nodules, larger measuring 0.7 cm. Correlation with follow-up examinations is recommended, as the possibility of metastases is not excluded Lymph nodes: Several mildly enlarged periceliac/periportal lymph nodes are appreciated, largest measuring approximately 1.7 x 1.3 cm, image 35, series 6. Portacaval adenopathy measures 2.2 x 1.8 cm, image 42, series 6. Mild retrocaval, retroperitoneal adenopathy is appreciated, largest measuring 1.5 x 1.0 cm. Mildly prominent left periaortic retroperitoneal lymph node measures 1.5 x 1.0 cm, image 36, series 6 Additional subcentimeter retroperitoneal and gastrohepatic ligament lymph nodes are identified. 06/08/2023 - Flex Sig Dr. Francois - Malignant tumor in the distal sigmoid colon 05/30/2023 - Colonoscopy Dr. Lee - 3 polyps and recto-sigmoid mass - Invasive mod. Diff adenoca. 02/2023 - bowel pressure and rectal bleeding. Updated Visit, November 21, 2023: Nancy returns today for Cycle 5. Platelets now increased to 101 after dropping to 72 on 11/07. WBC is 3.69. The day of her second Neulasta shot, she felt fatigued and generally unwell - recovered by the next day. Updated Visit, October 24, 2023: Nancy returns today for treatment. Platelets are low - 81. I advised her to watch for bleeding and to not take aspirin or ibuprofen. Also advised her to not drink any alcohol or tonic water. WBC is good. Hydration has been helping her. She is safe to proceed with treatment today. Updated Visit, October 10, 2023: Nancy returns after a break from therapy and a trip to [place]. She was thrombocytopenic and mildly neutropenic at last visit causing a delay. Reviewed iron and indicates she could use replacement. She is safe to proceed with treatment C3 today. Updated Visit, September 26, 2023: Nancy returns today with Leoncio. We reviewed her labs together, WBC and platelets are low so I recommend holding treatment until October 10 so she can safely go on her trip. Growth factor to improve neutropenic recovery. Continue to postpone iron treatment, I will check her iron studies on RTC. She is looking forward to a trip to [place] 10/01 - 10/06. Updated Visit, September 12, 2022: Nancy Sue returns for follow-up and cycle 2 FOLFOX. She received her first cycle of FOLFOX on 08/29/2023. Overall, she tolerated treatment well. She has a dry mouth and throat. She denies any mouth sores. No nausea, vomiting, diarrhea or abdominal pain. She denies any blood in her stools. She denies fevers, chills, night sweats and signs/symptoms of infection. No bleeding or abnormal bruising. Overall, she is doing well and wishes to proceed with treatment as planned. Updated Visit, September 07, 2023: Nancy Sue returns for scheduled follow-up. She received cycle 1 FOLFOX on 08/29/2023. Right after treatment the same day she had developed cold sensitivity. Overall, she tolerated treatment well. She denies any mouth sores. No significant diarrhea. She has not had any further blood in her stools since . She remains on 1 oral iron pills daily. She denies hand-foot syndrome. She currently denies fevers, chills, night sweats and signs/symptoms of infection. On 09/05/2023 she had the flu and had excessive vomiting. Updated Visit, August 29, 2023: Nancy returns today with Leoncio to review the results of her lung biopsy, which showed low-grade neuroendocrine tumor. She reports feeling good about her bx results and is ready to proceed with treatment today. I recommended she receive hydration on Sunday with treatment. She should go to the ER if she develops a fever or other concerning symptoms after treatment. Updated Visit, July 27, 2023: Virtual visit Discussed with nancy and Leoncio plan from tumor board review. Discussed lung lesion and need for biopsy. As well as potentially overstated and subsequent overstaging LN of retroperitoneum and upper mesenteric LN stations. Patient and agree with the plan. Updated Visit, July 20, 2023: Nancy returns today with Leoncio and daughter Jennifer for follow up. I reviewed her recent PET CT with them, we should likely plan on chemotherapy as next steps as her disease can be classified as Stage 4. I will bring her case to the tumor board in order to get a broader range of recommendations, in the meantime I will start preparing to start her on chemotherapy. She reports still having some bloody stools, which she feels may have been a little worse lately than in the past. She would like to have a second opinion in addition to the tumor board recommendations. Her daughter Jennifer works in cardiology. This was a very lengthy and emotional discussion as it was unexpected by us all. Initial Visit, June 29, 2023: Nancy Sue presents today Hematology and Oncology evaluation. She is a 63 year old female who had changes in bowel habits and presumed hemorrhoidal bleeding for 3 months. She underwent colonoscopy and was found to have a recto-sigmoid mass that was not obstructing by Dr Lee. Path consistent with malignancy. Staging studies incomplete but she does have selwyn-hepatis nodes that are concerning for metastatic disease. Additionally, lung nodules also concerning for metastasis. Continues to have bowel pressure. Rectal bleeding. Here with Leoncio who is a horse show judge and getting ready to retire. 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 REVIEW OF SYSTEMS Per HPI and otherwise negative by full review of organ systems. ECOG PERFORMANCE STATUS: 0 PHYSICAL EXAMINATION: Vitals: BP 162/81 Pulse 70 Temp (Src) 97 (Temporal) Resp 16 Ht 5' 4.685 (1.64m) Wt 223 lb 5.2 oz (101.3kg) SpO2 97% BMI 37.53 kg/(m^2). Body surface area is 2.15 meters squared. Exam limited to gross visualization where appropriate. Gen.: This is an age-appropriate patient in no acute distress. Head: Appears atraumatic with no visible lesions. Eyes: Pupils equally round and reactive to light, extraocular muscles are intact. Neck: Supple. Respiratory: Appears to be respiring comfortably. Neurologic: Nonfocal to gross visualization. Alert and oriented 3. Psychiatric: No evidence of inappropriate anxiety or depression. Skin: Visible areas of skin without rash, lesions, wounds or petechiae. ALLERGIES: ALLERGIES Allergen Reactions Ktiyroc-Nqf-Bfl Red* Other: See Comments, Unknown, Myalgia myalgias MEDICATIONS: Ascorbic Dmfl-Ylqjwcotu-Kfm (EMERGEN-C) 1,000 mg pwep^Take 1 Packet by mouth once daily.^Disp: ^Rfl: iron glycinate,polysacch cmplx (IRON BIS GLYCIN-FE P-SAC CMPLX ORAL)^Take 20 mg by mouth once daily.^Disp: ^Rfl: collagen, hydrolysate, bovine, (COLLAGEN, HYDR, BOVINE,, BULK,) 100 % powd^Take 1 Dose by mouth once daily.^Disp: ^Rfl: ondansetron (ZOFRAN) 8 mg tablet^Take 1 tablet by mouth every 8 hours as needed for nausea/vomiting.^Disp: 90 tablet^Rfl: 1 prochlorperazine (COMPAZINE) 10 mg tablet^Take 1 tablet by mouth every 6 hours as needed.^Disp: 100 tablet^Rfl: 1 folic acid 1 mg tablet^Take 1 mg by mouth once daily.^Disp: ^Rfl: acetaminophen/diphenhydramine (TYLENOL PM ORAL)^Take 1 Dose by mouth as needed.^Disp: ^Rfl: levothyroxine (SYNTHROID) 50 mcg tablet^Take 50 mcg by mouth once daily.^Disp: ^Rfl: Pramoxine-Hydrocortisone (ANALPRAM-HC) 1-1 % rectal cream^1 g by RECTAL route two times a day as needed (rectal discomfort).^Disp: ^Rfl: omega 4-lpl-crd-fish oil 120-180-500 mg cap^Take 500 mg by mouth once daily.^Disp: ^Rfl: iv contrast (will be provided with radiology test)^CT Chest ABD/PEL-Inject, intravenously, once for 1 dose.No IV access, insert saline lock prior to the beginning of sedation, infusion, injection of imaging exam. Discontinue saline lock post exam. If Pt. has a central line or IVAD, may access for administration according to line specific nursing protocol. Once exam is complete flush line and de-access according to line specific nursing protocol in the CT contrast administration guidelines link.^Disp: 1 Each^Rfl: 0 (Patient not taking: Reported on 11/13/2023) enteric contrast (will be provided with radiology test)^For CT CHESTABD/PEL W IVCON Routine order Administer, As Directed One Time Only, via Oral, Rectal, both Oral and Rectal, Enteric Tube, Stoma or Indwelling Catheter, Enteric Contrast as designated per enteric contrast guidelines^Disp: 1 Each^Rfl: 0 (Patient not taking: Reported on 11/13/2023) LABORATORY VALUES: WBC (k/uL) Date Value 11/21/2023 3.69 (L) RBC (m/uL) Date Value 11/21/2023 4.14 Hemoglobin (g/dL) Date Value 11/21/2023 12.1 Hematocrit (%) Date Value 11/21/2023 37.3 MCV (fL) Date Value 11/21/2023 90.1 MCH (pg) Date Value 11/21/2023 29.2 MCHC (g/dL) Date Value 11/21/2023 32.4 RDW-CV (%) Date Value 11/21/2023 17.2 (H) Platelet Count (k/uL) Date Value 11/21/2023 101 (L) MPV (fL) Date Value 11/21/2023 10.2 Glucose (mg/dL) Date Value 11/21/2023 110 (H) BUN (mg/dL) Date Value 11/21/2023 14 Creatinine (mg/dL) Date Value 11/21/2023 0.84 Sodium (mmol/L) Date Value 11/21/2023 143 Potassium (mmol/L) Date Value 11/21/2023 4.3 Chloride (mmol/L) Date Value 11/21/2023 107 (H) CO2 (mmol/L) Date Value 11/21/2023 25 Protein, Total (g/dL) Date Value 11/21/2023 6.8 Albumin (g/dL) Date Value 11/21/2023 4.2 Calcium, Total (mg/dL) Date Value 11/21/2023 9.5 Alkaline Phosphatase (U/L) Date Value 11/21/2023 69 Bilirubin, Total (mg/dL) Date Value 11/21/2023 0.5 AST (U/L) Date Value 11/21/2023 43 (H) ALT (U/L) Date Value 11/21/2023 35 CEA (ng/mL) Date Value 11/07/2023 1.2 09/26/2023 1.4 08/29/2023 2.5 06/29/2023 1.5 06/05/2023 1.4 DIAGNOSIS: (C18.7) Malignant neoplasm of sigmoid colon (HCC) (primary encounter diagnosis) Plan: DISCONTINUED: palonosetron 0.25 mg injection (ALOXI), DISCONTINUED: dexAMETHasone 10 mg in NaCl 0.9% 50 mL (DECADRON), DISCONTINUED: oxaliplatin 129.6 mg in D5W 525.92 mL (ELOXATIN), DISCONTINUED: leucovorin 864 mg in D5W 93.2 mL, DISCONTINUED: fluorouracil (ADRUCIL) 4,000 mg in NaCl 0.9% 102 mL in empty bag, DISCONTINUED: NaCl 0.9% iv infusion, DISCONTINUED: diphenhydrAMINE 50 mg injection (BENADRYL), DISCONTINUED: hydrocortisone sodium succinate (PF) 100 mg injection (Solu-CORTEF), DISCONTINUED: EPINEPHrine 1 mg/mL (1 mL) 0.3 mg injection PAST MEDICAL HISTORY Diagnosis Date High cholesterol Hypothyroidism PAST SURGICAL HISTORY Procedure Laterality Date ;TOTAL HYSTERECTMY TUBE(S) &/OR OVARY COLONOSCOPY SCREENING LIPOMA (MEDIUM) Social History Tobacco Use Smoking status: Never Smokeless tobacco: Never Vaping Use Vaping Use: Never used Substance Use Topics Alcohol use: Yes Comment: 2 drinks a couple times a month Drug use: Never FAMILY HISTORY Problem Relation Age of Onset Stroke Mother COPD Father Heart Father Colon Cancer Brother I spent a total of 30 minutes on the date of service which included preparing to see the patient, [id number]-[id number] patient care, completing clinical documentation, performing a medically appropriate examination, counseling and educating the patient/family/caregiver, ordering medications, tests, or procedures, independently interpreting results (not separately reported), and communicating results to the patient/family/caregiver. Andrew Wing MD, CPE Hematology and Oncology Services Provided at: [place], [place] Scribe Attestation: This note was scribed by Kimi Mccain on November 21, 2023 under the direction and supervision of Dr. Andrew Wing. I attest that all of the information documented is correct to the best of my knowledge. Provider Attestation: I, Andrew Wing MD, attest that all information documented by the above scribe is correct, and was supervised by me and under my direction. CC: Dr. Jose Francois documented in this encounter [facility] 11-21-2023 History of Presen t illness Narrative Oncology Nutrition Therapy Reassessment RECOMMENDED MALNUTRITION DIAGNOSIS: NO MALNUTRITION IDENTIFIED Some elements copied from my note on 10/10/2023, have been updated and all reflect current decision making from today, 11/21/2023 Nutrition Diagnosis: Behavioral-Environmental: Food and nutrition related knowledge deficit, related to, lack of prior exposure to information , as evidenced by verbalizes inaccurate information and verbalizes incomplete information Nutrition Intervention: -aim for at least 3 meals per day + snack(s) as needed -consider small frequent meals and snacks if appetite decreases -encouraged adequate hydration -aim for 60-64 ounces non-caffeine containing fluids Nutrition Monitoring & Evaluation: -PO Intake -Wt status -BM's -Biochemical Markers -Plan of care Date of last encounter: October 10, 2023 Patient met goal(s): Yes Patient's symptoms are: None Pt presents for nutrition counseling for sigmoid adenocarcinoma. Current Treatment: FOLFOX (C1- 08/29/2023) Previous Treatment(s): n/a Pt denies any chewing/swallowing issues, denies current N/V/D/C. Patient states she continues to tolerate treatment well with no significant side effects. Patient endorses good appetite and intakes. She is eating a variety of foods. She tries to focus on healthier options. She is maintaining weight and staying hydrated. Reviewed above interventions, problem solved ways to meet recommendations, and answered all of patient's questions. Thank you for allowing me to participate in the care of this pt. Readiness to Learn: Cognitive ability: Alert and oriented Motivation to learn: Interested Family support: Unable to assess - Family not present Instruction provided to: Patient Patient learns best by: Individual Instruction Factors affecting learning: None Physical limitations affecting learning: None Educational materials provided: none this visit Anthropometrics: Height: Last 1 Encounter Ht Readings: Date: Ht: 11/21/2023 164.3 cm (5' 4.69 ) Current weight: Last 1 Encounter Wt Readings: Date: Wt: 11/21/2023 101.3 kg (223 lb 5.2 oz) Estimated body mass index is 37.53 kg/m as calculated from the following: Height as of an earlier encounter on 11/21/23: 164.3 cm (5' 4.69 ). Weight as of an earlier encounter on 11/21/23: 101.3 kg (223 lb 5.2 oz). Resting Metabolic Rate: 1562 Weight Change: n/a [place] Body Weight: 57kg Estimated kilocalorie needs: 3952-7987 kilocalories determined by 30-35 kcal/kg Estimated protein needs: 57-85 grams determined by 1.0-1.5 g/kg [place] weight Estimated fluid needs: ~1079-4226 milliliters based on 1 mL per kcal (unless otherwise indicated) Nutrition Focused Physical Exam: Unable to perform exam due to concerns for lack of privacy in treatment area, will re-attempt during reassessment. Potential Signs of Inflammation: chronic condition Allergies: Aafntvv-Xor-Dyw Reductase Inhibitors Medications: Current Outpatient Medications Medication Sig Dispense Refill iv contrast (will be provided with radiology test) CT Chest ABD/PEL-Inject, intravenously, once for 1 dose.No IV access, insert saline lock prior to the beginning of sedation, infusion, injection of imaging exam. Discontinue saline lock post exam. If Pt. has a central line or IVAD, may access for administration according to line specific nursing protocol. Once exam is complete flush line and de-access according to line specific nursing protocol in the CT contrast administration guidelines link. (Patient not taking: Reported on 11/13/2023) 1 Each 0 enteric contrast (will be provided with radiology test) For CT CHESTABD/PEL W IVCON Routine order Administer, As Directed One Time Only, via Oral, Rectal, both Oral and Rectal, Enteric Tube, Stoma or Indwelling Catheter, Enteric Contrast as designated per enteric contrast guidelines (Patient not taking: Reported on 11/13/2023) 1 Each 0 Ascorbic Xllf-Mvwbqidcs-Yrm (EMERGEN-C) 1,000 mg pwep Take 1 Packet by mouth once daily. iron glycinate,polysacch cmplx (IRON BIS GLYCIN-FE P-SAC CMPLX ORAL) Take 20 mg by mouth once daily. collagen, hydrolysate, bovine, (COLLAGEN, HYDR, BOVINE,, BULK,) 100 % powd Take 1 Dose by mouth once daily. ondansetron (ZOFRAN) 8 mg tablet Take 1 tablet by mouth every 8 hours as needed for nausea/vomiting. 90 tablet 1 prochlorperazine (COMPAZINE) 10 mg tablet Take 1 tablet by mouth every 6 hours as needed. 100 tablet 1 folic acid 1 mg tablet Take 1 mg by mouth once daily. acetaminophen/diphenhydramine (TYLENOL PM ORAL) Take 1 Dose by mouth as needed. levothyroxine (SYNTHROID) 50 mcg tablet Take 50 mcg by mouth once daily. Pramoxine-Hydrocortisone (ANALPRAM-HC) 1-1 % rectal cream 1 g by RECTAL route two times a day as needed (rectal discomfort). omega 2-bmg-xie-fish oil 120-180-500 mg cap Take 500 mg by mouth once daily. No current facility-administered medications for this visit. Need for Follow up: will continue to follow Referred by: Dianne CHEN Billing Type: Re-assess/15 min 1 unit Time Spent with Patient: 15 minutes Signed by: Eliza Morales MS, RDN, LD documented in this encounter [facility] 11-13-2023 Note [facility] 11-07-2023 Note [facility] 11-07-2023 Note [facility] 10-24-2023 Note [facility] 10-24-2023 Instructions Kimi Mccain - 10/24/2023 9:33 AM EST Cycle 4 FOLFOX today. (Aware of platelets - 81, okay to proceed). (FOxTROT JCO 09/2022) x 4 cycles - Restage. Restage and consider resection +/- metastectomy vs. continued chemotherapy. Iron infusion today. Hydration on day of disconnect. CT CAP scans in 2 weeks. Follow up with Dr Francois in 3 weeks. RTC in 4 weeks for cycle 5. Labs preceding documented in this encounter [facility] 10-24-2023 History of Presen t illness Narrative Images from the original note were not included. NAME: Nancy Sue CLINIC NO.: [id number] DATE OF SERVICE: October 24, 2023 (Dianne) Some elements in this clinic note that are critical to medical decision making have been carefully reviewed and included from a prior clinic note dated: October 10, 2023 (Dianne) Referring Provider: Philip Francois Additional Clinicians involved in Nancy Sue's care: Dr. Jose Buckner, Dr. Salbador Lee DIAGNOSIS: Sigmoid colon cancer ASSESSMENT: 63 year old with sigmoid adenocarcinoma pMMR that will need to complete staging studies prior to determination of surgery vs. systemic therapy. She was diagnosed 05/30/2023 on colonoscopy done for rectal bleeding that started in February 2023. Surprisingly not iron deficient. PET shows mesenteric and retroperitoneal LN's. Most consistent with stage IV disease. 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 Started FOLFOX on 08/29/2023. Cancer Staging Malignant neoplasm of sigmoid colon (HCC) Staging form: Colon and Rectum, AJCC 8th Edition - Clinical stage from 06/29/2023: Stage IVB (cTX, cNX, cM1b) - Signed by Andrew Wing MD on 07/20/2023 LN's identified are borderline - may be Overstaged. Pulmonary GPS Biopsy of Right lung lesion - Carcinoid. PLAN: Cycle 4 FOLFOX today. (Aware of platelets - 81, okay to proceed). (FOxTROT JCO 09/2022) x 4 cycles - Restage. Restage and consider resection +/- metastectomy vs. continued chemotherapy. Iron infusion today. Hydration on day of disconnect. CT CAP scans in 2 weeks. Labs same day. Follow up with Dr Francois in 3 weeks. RTC in 4 weeks for cycle 5. Labs preceding. HPI: CASE HISTORY: Reverse Chronological Order 08/29/2023 - started FOLFOX 08/22/2023 - TB-FNA Right lower Lobe - Neoplastic cells present derived from low-grade neuroendocrine tumor 07/13/2023 - CT PET: Intense uptake along more than 7 cm of the sigmoid colon consistent with known primary, associated with mildly prominent with evce-yh-vrrnegim FDG uptake in upper mesenteric and retroperitoneal lymphadenopathy. 0.7 cm right lower lobe lung nodule, below PET resolution. 07/06/2023 - CT Pelvis: Irregular circumferential distal sigmoid colonic wall thickening, extending over a length of 8 cm, compatible with known sigmoid colonic neoplasm. No metastatic disease within the pelvis. 06/22/2023 - CT Chest/Abd : Right lower lobe subcentimeter pulmonary nodules, larger measuring 0.7 cm. Correlation with follow-up examinations is recommended, as the possibility of metastases is not excluded Lymph nodes: Several mildly enlarged periceliac/periportal lymph nodes are appreciated, largest measuring approximately 1.7 x 1.3 cm, image 35, series 6. Portacaval adenopathy measures 2.2 x 1.8 cm, image 42, series 6. Mild retrocaval, retroperitoneal adenopathy is appreciated, largest measuring 1.5 x 1.0 cm. Mildly prominent left periaortic retroperitoneal lymph node measures 1.5 x 1.0 cm, image 36, series 6 Additional subcentimeter retroperitoneal and gastrohepatic ligament lymph nodes are identified. 06/08/2023 - Flex Sig Dr. Francois - Malignant tumor in the distal sigmoid colon 05/30/2023 - Colonoscopy Dr. Lee - 3 polyps and recto-sigmoid mass - Invasive mod. Diff adenoca. 02/2023 - bowel pressure and rectal bleeding. Updated Visit, October 24, 2023: Nancy returns today for treatment. Platelets are low - 81. I advised her to watch for bleeding and to not take aspirin or ibuprofen. Also advised her to not drink any alcohol or tonic water. WBC is good. Hydration has been helping her. She is safe to proceed with treatment today. Updated Visit, October 10, 2023: Nancy returns after a break from therapy and a trip to [place]. She was thrombocytopenic and mildly neutropenic at last visit causing a delay. Reviewed iron and indicates she could use replacement. She is safe to proceed with treatment C3 today. Updated Visit, September 26, 2023: Nancy returns today with Leoncio. We reviewed her labs together, WBC and platelets are low so I recommend holding treatment until October 10 so she can safely go on her trip. Growth factor to improve neutropenic recovery. Continue to postpone iron treatment, I will check her iron studies on RTC. She is looking forward to a trip to [place] 10/01 - 10/06. Updated Visit, September 12, 2022: Nancy Sue returns for follow-up and cycle 2 FOLFOX. She received her first cycle of FOLFOX on 08/29/2023. Overall, she tolerated treatment well. She has a dry mouth and throat. She denies any mouth sores. No nausea, vomiting, diarrhea or abdominal pain. She denies any blood in her stools. She denies fevers, chills, night sweats and signs/symptoms of infection. No bleeding or abnormal bruising. Overall, she is doing well and wishes to proceed with treatment as planned. Updated Visit, September 07, 2023: Nancy Sue returns for scheduled follow-up. She received cycle 1 FOLFOX on 08/29/2023. Right after treatment the same day she had developed cold sensitivity. Overall, she tolerated treatment well. She denies any mouth sores. No significant diarrhea. She has not had any further blood in her stools since . She remains on 1 oral iron pills daily. She denies hand-foot syndrome. She currently denies fevers, chills, night sweats and signs/symptoms of infection. On 09/05/2023 she had the flu and had excessive vomiting. Updated Visit, August 29, 2023: Nancy returns today with Leoncio to review the results of her lung biopsy, which showed low-grade neuroendocrine tumor. She reports feeling good about her bx results and is ready to proceed with treatment today. I recommended she receive hydration on Sunday with treatment. She should go to the ER if she develops a fever or other concerning symptoms after treatment. Updated Visit, July 27, 2023: Virtual visit Discussed with nancy and Leoncio plan from tumor board review. Discussed lung lesion and need for biopsy. As well as potentially overstated and subsequent overstaging LN of retroperitoneum and upper mesenteric LN stations. Patient and agree with the plan. Updated Visit, July 20, 2023: Nancy returns today with Leoncio and daughter Jennifer for follow up. I reviewed her recent PET CT with them, we should likely plan on chemotherapy as next steps as her disease can be classified as Stage 4. I will bring her case to the tumor board in order to get a broader range of recommendations, in the meantime I will start preparing to start her on chemotherapy. She reports still having some bloody stools, which she feels may have been a little worse lately than in the past. She would like to have a second opinion in addition to the tumor board recommendations. Her daughter Jennifer works in cardiology. This was a very lengthy and emotional discussion as it was unexpected by us all. Initial Visit, June 29, 2023: Nancy Sue presents today Hematology and Oncology evaluation. She is a 63 year old female who had changes in bowel habits and presumed hemorrhoidal bleeding for 3 months. She underwent colonoscopy and was found to have a recto-sigmoid mass that was not obstructing by Dr Lee. Path consistent with malignancy. Staging studies incomplete but she does have selwyn-hepatis nodes that are concerning for metastatic disease. Additionally, lung nodules also concerning for metastasis. Continues to have bowel pressure. Rectal bleeding. Here with Leoncio who is a horse show judge and getting ready to retire. 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 REVIEW OF SYSTEMS Per HPI and otherwise negative by full review of organ systems. ECOG PERFORMANCE STATUS: 0 PHYSICAL EXAMINATION: Vitals: BP 175/76 Pulse 76 Temp (Src) 97.8 (Temporal) Resp 16 Ht 5' 4.685 (1.64m) Wt 221 lb 5.5 oz (100.4kg) SpO2 97% BMI 37.19 kg/(m^2). Body surface area is 2.14 meters squared. Exam limited to gross visualization where appropriate. Gen.: This is an age-appropriate patient in no acute distress. Head: Appears atraumatic with no visible lesions. Eyes: Pupils equally round and reactive to light, extraocular muscles are intact. Neck: Supple. Respiratory: Appears to be respiring comfortably. Neurologic: Nonfocal to gross visualization. Alert and oriented 3. Psychiatric: No evidence of inappropriate anxiety or depression. Skin: Visible areas of skin without rash, lesions, wounds or petechiae. ALLERGIES: ALLERGIES Allergen Reactions Lsyyjmb-Bpy-Kbz Red* Other: See Comments, Unknown, Myalgia myalgias MEDICATIONS: amoxicillin-clavulanate potassium (AUGMENTIN) 875-125 mg per tablet Take 1 tablet by mouth two times a day for 7 days. Ascorbic Dvsn-Jbsbpwmwl-Sac (EMERGEN-C) 1,000 mg pwep Take 1 Packet by mouth once daily. iron glycinate,polysacch cmplx (IRON BIS GLYCIN-FE P-SAC CMPLX ORAL) Take 20 mg by mouth once daily. collagen, hydrolysate, bovine, (COLLAGEN, HYDR, BOVINE,, BULK,) 100 % powd Take 1 Dose by mouth once daily. ondansetron (ZOFRAN) 8 mg tablet Take 1 tablet by mouth every 8 hours as needed for nausea/vomiting. prochlorperazine (COMPAZINE) 10 mg tablet Take 1 tablet by mouth every 6 hours as needed. folic acid 1 mg tablet Take 1 mg by mouth once daily. acetaminophen/diphenhydramine (TYLENOL PM ORAL) Take 1 Dose by mouth as needed. levothyroxine (SYNTHROID) 50 mcg tablet Take 50 mcg by mouth once daily. Pramoxine-Hydrocortisone (ANALPRAM-HC) 1-1 % rectal cream 1 g by RECTAL route two times a day as needed (rectal discomfort). omega 7-oft-jwv-fish oil 120-180-500 mg cap Take 500 mg by mouth once daily. iv contrast (will be provided with radiology test) CT Chest ABD/PEL-Inject, intravenously, once for 1 dose.No IV access, insert saline lock prior to the beginning of sedation, infusion, injection of imaging exam. Discontinue saline lock post exam. If Pt. has a central line or IVAD, may access for administration according to line specific nursing protocol. Once exam is complete flush line and de-access according to line specific nursing protocol in the CT contrast administration guidelines link. enteric contrast (will be provided with radiology test) For CT CHESTABD/PEL W IVCON Routine order Administer, As Directed One Time Only, via Oral, Rectal, both Oral and Rectal, Enteric Tube, Stoma or Indwelling Catheter, Enteric Contrast as designated per enteric contrast guidelines LABORATORY VALUES: WBC (k/uL) Date Value 10/24/2023 4.39 RBC (m/uL) Date Value 10/24/2023 4.28 Hemoglobin (g/dL) Date Value 10/24/2023 12.2 Hematocrit (%) Date Value 10/24/2023 37.0 MCV (fL) Date Value 10/24/2023 86.4 MCH (pg) Date Value 10/24/2023 28.5 MCHC (g/dL) Date Value 10/24/2023 33.0 RDW-CV (%) Date Value 10/24/2023 15.5 (H) Platelet Count (k/uL) Date Value 10/24/2023 81 (L) MPV (fL) Date Value 10/24/2023 11.3 Glucose (mg/dL) Date Value 10/24/2023 150 (H) BUN (mg/dL) Date Value 10/24/2023 10 Creatinine (mg/dL) Date Value 10/24/2023 0.84 Sodium (mmol/L) Date Value 10/24/2023 143 Potassium (mmol/L) Date Value 10/24/2023 4.4 Chloride (mmol/L) Date Value 10/24/2023 107 (H) CO2 (mmol/L) Date Value 10/24/2023 26 Protein, Total (g/dL) Date Value 10/24/2023 7.1 Albumin (g/dL) Date Value 10/24/2023 4.1 Calcium, Total (mg/dL) Date Value 10/24/2023 9.7 Alkaline Phosphatase (U/L) Date Value 10/24/2023 78 Bilirubin, Total (mg/dL) Date Value 10/24/2023 0.2 AST (U/L) Date Value 10/24/2023 35 ALT (U/L) Date Value 10/24/2023 31 CEA (ng/mL) Date Value 09/26/2023 1.4 08/29/2023 2.5 06/29/2023 1.5 06/05/2023 1.4 DIAGNOSIS: (C18.6) Malignant neoplasm of descending colon (HCC) (primary encounter diagnosis) Plan: CT ABD/PEL W IVCON, CT CHEST W IVCON, iv contrast (will be provided with radiology test), enteric contrast (will be provided with radiology test), CEA BLD, CBC + DIFF, COMP METABOLIC PANEL PAST MEDICAL HISTORY Diagnosis Date High cholesterol Hypothyroidism PAST SURGICAL HISTORY Procedure Laterality Date ;TOTAL HYSTERECTMY TUBE(S) &/OR OVARY COLONOSCOPY SCREENING LIPOMA (MEDIUM) Social History Tobacco Use Smoking status: Never Smokeless tobacco: Never Vaping Use Vaping Use: Never used Substance Use Topics Alcohol use: Yes Comment: 2 drinks a couple times a month Drug use: Never FAMILY HISTORY Problem Relation Age of Onset Stroke Mother COPD Father Heart Father Colon Cancer Brother I spent a total of 40 minutes on the date of service which included preparing to see the patient, rzny-uh-gmfz patient care, completing clinical documentation, performing a medically appropriate examination, counseling and educating the patient/family/caregiver, ordering medications, tests, or procedures, independently interpreting results (not separately reported), and communicating results to the patient/family/caregiver. Andrew Wing MD, CPE Hematology and Oncology Services Provided at: [facility], [place], [place] Scribe Attestation: This note was scribed by Kimi Mccain on October 24, 2023 under the direction and supervision of Dr. Andrew Wing. I attest that all of the information documented is correct to the best of my knowledge. Provider Attestation: I, Andrew Wing MD, attest that all information documented by the above scribe is correct, and was supervised by me and under my direction. CC: Dr. Jose Francois documented in this encounter [facility] 10-24-2023 Nurse Note Patient still has a cough she is still taking antibiotics for. Jyotsna Owen MA documented in this encounter [facility] 10-18-2023 Miscellaneous Notes Discussed w/ Dr Wing who orders Augmentin 875 mg BID x 7 days. Pt notified. Brenda: RX pended. Lidia Teran RN Pt c/o productive cough w/ clear to green sputum. Has been taking Mucinex 12 Hr DM for 2 days now w/ no improvement. Reports chills on Sunday. No fevers. Cough began on Sunday. Requesting an antibiotic. Pt has NKA. What do you advise? Preferred Pharmacy: LEELEE Teran RN documented in this encounter [facility] 10-16-2023 Miscellaneous Notes Iron was given to her because of her recent GI bleed from her colorectal cancer and based on the iron studies from August 29 - ( T-sat 11% ) so that we could optimize her care anticipating possible surgery. FYI: Pt's Venofer was denied due to current labs not meeting parameters. Lidia Teran RN documented in this encounter [facility] 10-12-2023 Note [facility] 10-12-2023 History of Presen t illness Narrative Patient had described bilateral lower extrem discomfort as there almost neuropathic like, it is intermittent. She will monitor and discuss with provider@ Tomeka Little RN documented in this encounter [facility] 10-10-2023 Note [facility] 10-10-2023 Note [facility] 09-26-2023 Note HNO ID: [id number] Author: ALCIRA BURGOS RN Service: ? Author Type: Registered Nurse Type: Progress Notes Filed: 09/26/2023 10:37 Note Text: Holding treatment today, IVF only. Alcira Burgos RN [facility] 09-26-2023 Note [facility] 09-26-2023 Note [facility] 09-12-2023 Note [facility] 09-12-2023 Note [facility] 09-07-2023 Note [facility] 08-30-2023 Miscellaneous Notes Thanks Judit! Patient name and was confirmed at initiation of discussion. Nancy Sue's Multi-Cancer panel plus preliminary evidence colorectal cancer genes through [facility] was negative for a pathogenic variant. Variant(s) of uncertain significance (VUS) detected: DARRELL ([id number].7618G>A) and FOCAD (del exons 8-9). A VUS is a genetic variant for which insufficient data exists in order to determine if it is associated with disease (deleterious mutation) or is a normal genetic variant which can occur in the population without disease (benign polymorphism). Please see [employer] message for further discussion. Judit Hong, , CGC Licensed, Certified Genetic Counselor documented in this encounter [facility] 08-29-[address] - 08/29/2023 2:49 PM EST Nutrition Intervention: -aim for at least 3 meals per day + snack(s) as needed -consider small frequent meals and snacks if appetite decreases -aim for overall healthy balanced diet including lean proteins, whole grains, beans/legumes, fruits, vegetables, healthy fats -encouraged adequate hydration -aim for 60-64 ounces non-caffeine containing fluids -if diarrhea develops; include oral rehydration solution such as Pedialyte, Drip Drop, Liquid IV documented in this encounter [facility] 08-29-2023 Note [facility] 08-29-2023 Note [facility] 08-29-2023 History of Presen t illness Narrative Oncology Nutrition Therapy Initial Assessment RECOMMENDED MALNUTRITION DIAGNOSIS: NO MALNUTRITION IDENTIFIED Nutrition Diagnosis: Behavioral-Environmental: Food and nutrition related knowledge deficit, related to, lack of prior exposure to information , as evidenced by verbalizes inaccurate information and verbalizes incomplete information Nutrition Intervention: -advised against prolonged fasting while on active treatment -aim for at least 3 meals per day + snack(s) as needed -consider small frequent meals and snacks if appetite decreases -aim for overall healthy balanced diet including lean proteins, whole grains, beans/legumes, fruits, vegetables, healthy fats -encouraged adequate hydration -aim for 60-64 ounces non-caffeine containing fluids -if diarrhea develops; include oral rehydration solution such as Pedialyte, Drip Drop, Liquid IV -provided contact information for any further questions/concerns Nutrition Monitoring & Evaluation: -PO Intake -Wt status -BM's -Biochemical Markers -Plan of care Patient's symptoms are: None Pt presents for nutrition counseling for sigmoid adenocarcinoma. Current Treatment: FOLFOX (C1- 08/29/2023) Previous Treatment(s): n/a Pt denies any chewing/swallowing issues, denies current N/V/D/C. Pt denies food allergies/intolerances. Patient endorses good appetite and intakes. She reports typically consuming at least 3 meals per day unless she is busy and fasting. She did not elaborate on fasting habits. Reviewed with pt importance of adequate calories/protein and preserving lean muscle mass. Discussed with patient concerns of prolonged fasting and potential negative implications such as difficulty meeting estimated nutrient needs. Reviewed above interventions, problem solved with pt on ways to meet recommendations, and answered all of patient's questions. Thank you for allowing me to participate in the care of this pt. Readiness to Learn: Cognitive ability: Alert and oriented Motivation to learn: Interested Family support: Unable to assess - Family not present Instruction provided to: Patient Patient learns best by: Individual Instruction Factors affecting learning: None Physical limitations affecting learning: None Educational materials provided: Creative Eating during Illness and Recovery Anthropometrics: Height: Last 1 Encounter Ht Readings: Date: Ht: 08/29/2023 164.3 cm (5' 4.69 ) Current weight: Last 1 Encounter Wt Readings: Date: Wt: 08/29/2023 102.2 kg (225 lb 5 oz) Estimated body mass index is 37.86 kg/m as calculated from the following: Height as of an earlier encounter on 08/29/23: 164.3 cm (5' 4.69 ). Weight as of an earlier encounter on 08/29/23: 102.2 kg (225 lb 5 oz). Resting Metabolic Rate: 1571 Weight Change: n/a [place] Body Weight: 57kg Estimated kilocalorie needs: 4569-4295 kilocalories determined by 30-35 kcal/kg Estimated protein needs: 57-85 grams determined by 1.0-1.5 g/kg [place] weight Estimated fluid needs: ~6174-5853 milliliters based on 1 mL per kcal (unless otherwise indicated) Nutrition Focused Physical Exam: Unable to perform exam due to potential for patient discomfort (physical/emotional), will re-attempt during reassessment. Potential Signs of Inflammation: chronic condition Allergies: Crestor [Rosuvastatin] and Lotswry-Dnu-Lcf Reductase Inhibitors Medications: Current Outpatient Medications Medication Sig Dispense Refill Ascorbic Lmff-Wjmgwggec-Xfu (EMERGEN-C) 1,000 mg pwep Take 1 Packet by mouth once daily. iron glycinate,polysacch cmplx (IRON BIS GLYCIN-FE P-SAC CMPLX ORAL) Take 20 mg by mouth once daily. collagen, hydrolysate, bovine, (COLLAGEN, HYDR, BOVINE,, BULK,) 100 % powd Take 1 Dose by mouth once daily. ondansetron (ZOFRAN) 8 mg tablet Take 1 tablet by mouth every 8 hours as needed for nausea/vomiting. 90 tablet 1 prochlorperazine (COMPAZINE) 10 mg tablet Take 1 tablet by mouth every 6 hours as needed. 100 tablet 1 folic acid 1 mg tablet Take 1 mg by mouth once daily. acetaminophen/diphenhydramine (TYLENOL PM ORAL) Take 1 Dose by mouth as needed. iv contrast (will be provided with radiology test) MRI Rectum Inject, intravenously, once for 1 dose. No IV access, insert saline lock prior to the beginning of sedation, infusion, injection of imaging exam. Discontinue saline lock post exam. If Pt has a central line or IVAD, may access for administration according to line specific nursing protocol. Once exam is complete flush line and de-access according to line specific nursing protocol in the MR contrast administration guidelines link. (Patient not taking: Reported on 08/29/2023) 1 Each 0 enteric contrast (will be provided with radiology test) MRI RECTUM WO/W. Administer, As Directed One Time Only, via Oral, Rectal, both Oral and Rectal, Enteric Tube, Stoma or Indwelling Catheter, Enteric Contrast as designated per enteric contrast guidelines 1 Each 0 levothyroxine (SYNTHROID) 50 mcg tablet Take 50 mcg by mouth once daily. Pramoxine-Hydrocortisone (ANALPRAM-HC) 1-1 % rectal cream 1 g by RECTAL route two times a day as needed (rectal discomfort). omega 1-jhb-tnx-fish oil 120-180-500 mg cap Take 500 mg by mouth once daily. No current facility-administered medications for this visit. Facility-Administered Medications Ordered in Other Visits Medication Dose Route Frequency Provider Last Rate Last Admin oxaliplatin 183.6 mg in D5W 576.72 mL (ELOXATIN) 85 mg/m2 (Treatment Plan Recorded) INTRAVENOUS ONCE Andrew Wing MD leucovorin 864 mg in D5W 101.2 mL 400 mg/m2 (Treatment Plan Recorded) INTRAVENOUS ONCE Andrew Wing MD fluorouracil (ADRUCIL) 5,000 mg in NaCl 0.9% 102 mL in empty bag 2,400 mg/m2 (Treatment Plan Recorded) INTRAVENOUS ONCE Andrew Wing MD NaCl 0.9% iv infusion 500-999 mL/hr INTRAVENOUS PRN Andrew Wing MD diphenhydrAMINE 50 mg injection (BENADRYL) 50 mg INTRAVENOUS PRN Andrew Wing MD hydrocortisone sodium succinate (PF) 100 mg injection (Solu-CORTEF) 100 mg INTRAVENOUS PRN Andrew Wing MD EPINEPHrine 1 mg/mL (1 mL) 0.3 mg injection 0.3 mg INTRAMUSCULAR PRN Andrew Wing MD sodium chloride 0.9 % (flush) 10-20 mL (BD POSIFLUSH) 10-20 mL INTRAVENOUS PRN Andrew Wing MD heparin 100 unit/mL 500 Units injection 5 mL INTRAVENOUS DIRECTED PRN Andrew Wing MD sodium chloride 0.9 % (flush) 10-20 mL (BD POSIFLUSH) 10-20 mL INTRAVENOUS DIRECTED PRAndrew Cope MD Need for Follow up: will continue to follow Referred by: Dianne CHEN Billing Type: Initial Assess/15 min 2 units Time Spent with Patient: 30 minutes Signed by: Eliza Morales MS, RDN, LD documented in this encounter [facility] 08-24-2023 Miscellaneous Notes FYI: Pt had a bronchoscopy w/ biopsy yesterday. Reports her throat feels scratchy today. States that she felt a little wheezy during the night. Feels fine today. Denies dyspnea. No chest pain. No fevers/chills. Informed pt that her scratchy throat is likely from yesterday's procedure. Instructed pt to go to the ER if she develops wheezing or sudden shortness of breath. Pt verbalizes understanding and agrees. Lidia Teran RN documented in this encounter [facility] 08-22-2023 Note HNO ID: [id number] Author: Salbador Robin APRN.SLOT MANAGER Service: ? Author Type: Nurse Application Development Specialist Type: Anesthesia Procedure Notes Filed: 08/22/2023 8:07 AM Note Text: ANESTHESIOLOGY PROCEDURE NOTE Airway General Information Procedure Start Time/Medication Administration: 08/22/2023 7:55 AM Patient location during procedure: OR Timeout Performed Pre-procedure: timeout performed Consent Obtained: Yes Patient identity confirmed: arm band, care service desk team lead and patient Staffing Anesthesiologist: Fern Reynolds MD SLOT MANAGER: Salbador Robin APRN.SLOT MANAGER Performed by: anesthesiologist and SLOT MANAGER Indications and Patient Condition Indications for airway management: anesthesia Preoxygenated: yes anesthesia circuit Patient position: sniffing Method: asleep Cricoid Pressure: No Manual In-Line Stabilization: No Difficult Mask: No Final Airway Details Final airway type: endotracheal airway Final Endotracheal Airway: ETT Cuffed: yes Successful intubation technique: video laryngoscopy Devices used: CITTIO Endotracheal tube insertion site: oral Blade size: #3 ETT size (mm): 8.5 Measured from: lips Measurement (cm): 20 Placement verified by: chest auscultation and capnometry Cormack-Lehane Classification: grade IIb - view of arytenoids or posterior of glottis only Number of attempts at approach: 1 Airway not difficult SIGNATURE: Salbador Robin APRN.SLOT MANAGER PATIENT NAME: Nancy Sue DATE: August 22, 2023 TIME: 8:06 AM CSN: [id number] [facility] 08-22-2023 Note [facility] Patient Name: Nancy Sue Procedure Date: 08/22/2023 6:57 AM Date of : 1960 Admit Type: Outpatient Age: 63 Room: OR 2A Gender: Female Attending MD: Dao Dixon MD, [id number] Procedure: Bronchoscopy Indications: Right lower lobe nodule, Personal history of colon cancer Providers: Dao Dixon MD (Doctor), Sandra Quiroga RN (Assisting Nurse), Daly Zhang Assisting RN orientee Referring MD: Andrew Wing (Referring MD) Requesting Physician: Patient Profile: Refer to note in patient chart for documentation of history and physical. Medicines: General Anesthesia, See the Anesthesia note for documentation of the administered medications Complications: No immediate complications Procedure: Pre-Anesthesia Assessment: - A History and Physical has been performed. Patient meds and allergies have been reviewed. The risks and benefits of the procedure and the sedation options and risks were discussed with the patient. All questions were answered and informed consent was obtained. Patient identification and proposed procedure were verified prior to the procedure by the physician, the nurse, the anesthesiologist and the physician compensation analyst in the procedure room. Mental Status Examination: normal. Airway Examination: normal oropharyngeal airway. Respiratory Examination: clear to auscultation. CV Examination: regular rate and rhythm. ASA Grade Assessment: III - A patient with severe systemic disease. After reviewing the risks and benefits, the patient was deemed in satisfactory condition to undergo the procedure. The anesthesia plan was to use general anesthesia. Immediately prior to administration of medications, the patient was re-assessed for adequacy to receive sedatives. The heart rate, respiratory rate, oxygen saturations, blood pressure, adequacy of pulmonary ventilation, and response to care were monitored throughout the procedure. The physical status of the patient was re-assessed after the procedure. After obtaining informed consent, the Bronchoscope was introduced through the mouth, via the endotracheal tube and advanced to the tracheobronchial tree. the Bronchoscope was introduced through the mouth, via the endotracheal tube and advanced to the tracheobronchial tree. The procedure was accomplished without difficulty. The patient tolerated the procedure well. Total fluoroscopy time was 2 minutes, 26 seconds. Findings: The endotracheal tube is in good position. The trachea is of normal caliber. The nii is sharp. The tracheobronchial tree was examined to at least the first subsegmental level. Bronchial mucosa and anatomy are normal; there are no endobronchial lesions, and no secretions. Robotic bronchoscopy utilizing the JotSpot robot platform was performed. The CT scan was used for planning purposes. A virtual bronchoscopic image was generated using the planning software. The target in the medial basal segment of the right lower lobe (located in the peripheral one-third of the lung) was identified and marked. A solid nodule 8 mm in size was found and a pathway was created. CT-body registration was then achieved per standard workflows. Navigation to the lesion was performed. Advanced imaging using axial imaging with 3D reconstructions was used to further target the lesion(s). Two spins were done. Based on this radiographic information, adjustments in targeting were not made. A wwtc-uw-lwcrjb (TIL) spin was performed. Budz-ux-blsofy position was achieved at the end of navigation. Transbronchial needle aspirations of a solid nodule were performed in the medial basal segment of the right lower lobe 21ga Olympus PeriView and ArcPoint Needle and sent for routine cytology. The procedure was guided by fluoroscopy. Transbronchial needle aspiration technique was selected because the sampling site was not visible endoscopically. The sampling device penetrated the full thickness of the bronchial wall to obtain the needle aspiration of lung tissue. Five samples were obtained. Rapid On-Site Evaluation (COURT): Preliminary cytology of the lesion in the medial basal segment of the right lower lobe was suggestive of malignancy (final results are pending). Once the airway inspection was completed, the standard bronchoscope was withdrawn and the convex probe endobronchial ultrasound (EBUS) bronchoscope was inserted through the same route. Lymph Nodes: The following lymph nodes were evaluated and/or sampled. Lymph node sizing was performed via endobronchial ultrasound. Sampling by transbronchial needle aspiration was also performed using an Olympus ViziShot 22 gauge needle and sent for routine cytology. - The 11Ri (inferior interlobar) node was 4 mm by EBUS, [address] and non-hypermetabolic via PET scan. Sampling was not done due to size criteria (less than 5 m (more content not included)... [facility] 08-21-2023 Note [facility] 08-21-2023 Note [facility] 08-21-2023 History of Presen t illness Narrative ONCOLOGY PATIENT EDUCATION NOTE TOPIC: Chemotherapy, Medications: Oxaliplatin, Leucovorin, & 5FU READINESS TO LEARN: COGNITIVE ABILITY: Alert and oriented MOTIVATION TO LEARN: Interested FAMILY SUPPORT: High - Very involved in pt care INSTRUCTION PROVIDED TO: Patient and friend/other INSTRUCTION PROVIDED BY: Nurse Coordinator PATIENT LEARNS BEST BY: Multiple Methods FACTORS AFFECTING LEARNING: None PHYSICAL LIMITATIONS AFFECTING LEARNING: None LEARNING RESPONSE DIAGNOSIS: Metastatic Colon Cancer METHOD OF INSTRUCTION: Individual instruction Written instruction - handouts Verbal instruction PATIENT/FAMILY RESPONSE: Verbalizes understanding of: CHEMOTHERAPY-Regimen, toxicity and side effects EQUIPMENT USE-Correct use of Equipment INFECTION MANAGEMENT-Signs and symptoms of an infection and importance of contacting the physician SYMPTOM MANAGEMENT-Correct actions to take to manage symptoms associated with his/her disease/illness WORSENING CONDITION-Signs and symptoms of a worsening condition that warrant a call to the physician Information received as demonstrated by interest and questions FOLLOW UP PLAN: Patient instructed to call with any further issues Contact information given. SUPPLEMENTAL MATERIAL: Written material was provided at this visit with the following information: - Chemotherapy education was provided by a pharmacist YES - Side effect management information was provided/discussed including but not limited to: abdominal discomfort, anemia, appetite changes, arthralgia, bowel habit changes, cold sensitivity, electrolyte disturbances, fatigue, hair loss, hand-foot syndrome, headache, infection, mouth hygiene, mucositis, myalgia, nausea/vomitting, neutropenia, peripheral neuropathy, skin changes, taste changes, thrombocytopenia YES - Provided important phone numbers and contacts during and after hours. YES - Provided information on symptoms that require immediate assistance. YES - Provided Chemotherapy when to call handouts YES - Preventing infection. YES - Treatment schedule and confirmation of appointment times. YES - Available support groups. YES - The importance of contraception during the course of chemotherapy YES - Prescriptions for anti-emetics or treatment prep was given: Compazine and Zofran. YES - A tour was given of the infusion suite with directions for the first day. YES - Neutropenic fever protocol discussed with patient, which included the importance of reporting any fever of 100.4F (38.0C) or greater to the healthcare team as noted on the provided wallet card and/or magnet. YES - 4th Axel Information. YES - Patient services information. YES Time Spent: 60 minutes REFERRAL (RECOMMENDATION): Nutrition Lidia Teran, MONET Images from the original note were not included. [facility] Department of Pharmacy Oncology Pharmacy Medication Education Patient Name: Nancy Sue Primary Oncologist: Andrew Wing Diagnosis: colon cancer Nancy Sue is a 63 year old patient and caregiver here today for medication education for IV FLUOROURACIL , LEUCOVORIN , and OXALIPLATIN . Drug Interactions: Clinically significant interactions with chemotherapy, immunosuppression, or other standard of care treatment plan medications anticipated: No. There are no pertinent drug interactions identified. Patient was counseled accordingly. Allergies: Patient confirmed allergies documented in Epic are correct: Yes Was medication education provided?: Yes Medication Education: Administration and schedule: OXALIPLATIN 85 5FU 400 IVP D1 5FU 2400 CADD OVER 46 HRS - Q14D Potential side effects discussed: anemia, appetite changes, cold sensitivity, electrolyte disturbances, fatigue, infection, mouth hygiene, mucositis, myalgia, nausea/vomitting, neutropenia, risk for DVT, thrombocytopenia PO chemo: Not applicable Was medication reconciliation performed?: Yes Changes made to medication list? No Current Outpatient Medications Medication Sig Ascorbic Yyys-Ytxfjwuhd-Chh (EMERGEN-C) 1,000 mg pwep Take 1 Packet by mouth once daily. iron glycinate,polysacch cmplx (IRON BIS GLYCIN-FE P-SAC CMPLX ORAL) Take 20 mg by mouth once daily. collagen, hydrolysate, bovine, (COLLAGEN, HYDR, BOVINE,, BULK,) 100 % powd Take 1 Dose by mouth once daily. ondansetron (ZOFRAN) 8 mg tablet Take 1 tablet by mouth every 8 hours as needed for nausea/vomiting. prochlorperazine (COMPAZINE) 10 mg tablet Take 1 tablet by mouth every 6 hours as needed. folic acid 1 mg tablet Take 1 mg by mouth once daily. acetaminophen/diphenhydramine (TYLENOL PM ORAL) Take 1 Dose by mouth as needed. iv contrast (will be provided with radiology test) MRI Rectum Inject, intravenously, once for 1 dose. No IV access, insert saline lock prior to the beginning of sedation, infusion, injection of imaging exam. Discontinue saline lock post exam. If Pt has a central line or IVAD, may access for administration according to line specific nursing protocol. Once exam is complete flush line and de-access according to line specific nursing protocol in the MR contrast administration guidelines link. enteric contrast (will be provided with radiology test) MRI RECTUM WO/W. Administer, As Directed One Time Only, via Oral, Rectal, both Oral and Rectal, Enteric Tube, Stoma or Indwelling Catheter, Enteric Contrast as designated per enteric contrast guidelines levothyroxine (SYNTHROID) 50 mcg tablet Take 50 mcg by mouth once daily. Pramoxine-Hydrocortisone (ANALPRAM-HC) 1-1 % rectal cream 1 g by RECTAL route two times a day as needed (rectal discomfort). omega 9-gim-oim-fish oil 120-180-500 mg cap Take 500 mg by mouth once daily. No current facility-administered medications for this visit. I spent 15 time (15 minute increments) with the patient Javad Sinclair RPh Pager: documented in this encounter [facility] 08-21-2023 Note [facility] 08-21-2023 Note [facility] 08-21-2023 History of Presen t illness Narrative [facility] Consultation Note Genetic Counselor: Judit Hong MS, [place] [facility] [place] Patient: Nancy Sue Patient Name and confirmed at initiation of visit. Appointment occurred with audiovisual communication through [employer] Virtual Visit. I have communicated my name and active licensure. The patient's identity and physical location were verified at the time of this visit. Either the patient or their legal technology sales representative has been informed of the risks and benefits of -- and alternatives to -- treatment through a remote evaluation and consents to proceed with the evaluation remotely. HIGH LEVEL SUMMARY: The patient's personal and family history is potentially suggestive of a hereditary cancer syndrome. The patient provided informed consent for Multi-Cancer panel plus preliminary evidence colorectal cancer genes through [facility]. Results are expected in 2-3 weeks. IDENTIFICATION AND CHIEF COMPLAINT: Dr. Andrew Wing requested a consultation for genetic counseling and risk assessment for Nancy Sue, a 63 year old female, for discussion of her personal and family history of colorectal cancer. She presents to clinic today to discuss the possibility of a genetic predisposition to cancer, and to further clarify her risks, as well as her family members' risks for cancer. HISTORY OF PRESENT ILLNESS: In June of 2023, at the age of 63, Nancy Sue was diagnosed with stage IV colon cancer MMR proficient. She will be getting started with chemotherapy. PAST MEDICAL HISTORY Diagnosis Date High cholesterol Hypothyroidism PAST SURGICAL HISTORY Procedure Laterality Date ;TOTAL HYSTERECTMY TUBE(S) &/OR OVARY COLONOSCOPY SCREENING LIPOMA (MEDIUM) SOCIAL HISTORY: Social History Tobacco Use Smoking status: Never Smokeless tobacco: Never Vaping Use Vaping Use: Never used Substance Use Topics Alcohol use: Yes Comment: 2 drinks a couple times a month Drug use: Never FAMILY HISTORY: We obtained a detailed, 4-generation family history. Significant diagnoses are listed below: Brother colon cancer Maternal aunt brain cancer GENETIC COUNSELING RISK ASSESSMENT, DISCUSSION, AND SUGGESTED FOLLOW UP: We reviewed the natural history and genetic etiology of sporadic, familial and hereditary cancer syndromes. The patient's personal and family history is potentially suggestive of: a hereditary cancer syndrome The patient meets NCCN testing criteria. We discussed that identification of a hereditary cancer syndrome may help her care providers tailor her medical management. If a mutation is detected, the patient will be referred back to the referring provider and to any additional appropriate care providers to discuss the relevant options. Inheritance of hereditary cancer syndromes was discussed with the patient. If a mutation is not found in the patient, this will decrease the likelihood of a hereditary cancer syndrome as the explanation for the patient's personal and family history of cancer. However, it cannot completely rule out this possibility. Cancer surveillance options would be discussed for the patient according to the appropriate standard National Comprehensive Cancer Network and [place] [employer] guidelines, with consideration of their personal and family history risk factors. In this case, the patient will be referred back to their care providers for discussions of management. Based on this assessment of the patient's family and personal history, genetic testing is recommended. The patient was offered Multi-Cancer panel plus preliminary evidence colorectal cancer genes through [facility]. After considering the risks, benefits, and limitations, the patient chose to pursue and provided informed consent for the following testing: Multi-Cancer panel plus preliminary evidence colorectal cancer genes through [facility]. The Multi-Cancer Panel includes AIP, ALK, APC, DARRELL, AXIN2, BAP1, BARD1, BLM, BMPR1A, BRCA1, BRCA2, BRIP1, CASR, CDC73, CDH1, CDK4, CDKN1B, CDKN1C, CDKN2A, CEBPA, CHEK2, CTNNA1, DICER1, DIS3L2, EGFR, EPCAM, FH, FLCN, GATA2, GPC3, GREM1, HOXB13, HRAS, KIT, MAX, MEN1, MET, MITF, MLH1, MSH2, MSH3, MSH6, MUTYH, NBN, NF1, NF2, NTHL1, PALB2, PDGFRA, PHOX2B, PMS2, POLD1, POLE, POT1, SBGWN6V, PTCH1, PTEN, RAD50, RAD51C, RAD51D, RB1, RECQL4, RET, RUNX1, SDHA, SDHAF2, SDHB, SDHC, SDHD, SMAD4, SMARCA4, SMARCB1, SMARCE1, STK11, SUFU, TERC, TERT, OUIX606, TP53, TSC1, TSC2, VHL, WRN, and WT1. The Multi-Cancer panel looks at genes related to the following organ systems: Breast and gynecologic (breast, ovarian, uterine) Gastrointestinal (colorectal, gastric, pancreatic) Endocrine (thyroid, paraganglioma/pheochromocytoma, parathyroid, pituitary) Genitourinary (renal/urinary tract, prostate) Skin (melanoma, basal cell carcinoma) Brain/nervous system Sarcoma Hematologic (myelodysplastic syndrome/leukemia) We discussed that an NGS panel can rarely result in an unexpected finding which may or may not be related to the presenting phenotype. We discussed that [employer] may contact the patient by text or email regarding billing. The patient should watch for this communication and respond promptly. The patient should contact [employer] directly with any billing questions (ph. [phone]). Per the patient's request, I will contact her by telephone to discuss these results. A follow up genetic counseling visit will be scheduled if requested. The patient was seen for a total of 30 minutes, greater than 50% of which was spent bgny-oi-apat counseling. This plan is being carried out under the oversight of Dr. Rafaela Alvarado. This note will also be sent to the referring provider via the electronic medical record. Judit Hong MS, [place] [facility] [place] Licensed, Certified Genetic Counselor [facility] CC: Dr. Andrew Alvarado documented in this encounter [facility] 08-21-2023 Miscellaneous Notes Patient has an appt on 08/29/23. Would you like labs, if so place orders. Jyotsna Owen MA documented in this encounter [facility] 08-14-2023 Miscellaneous Notes The following approved medication requests have been transmitted electronically. Requested Prescriptions Signed Prescriptions Disp Refills ondansetron (ZOFRAN) 8 mg tablet 90 tablet 1 Sig: Take 1 tablet by mouth every 8 hours as needed for nausea/vomiting. Authorizing Provider: DARVIN CARSON prochlorperazine (COMPAZINE) 10 mg tablet 100 tablet 1 Sig: Take 1 tablet by mouth every 6 hours as needed. Authorizing Provider: DARVIN CARSON APRN.PAROLE AGENT Pt will be in next week for education (FOLFOX). Scripts for antiemetics pended. Lidia Teran RN documented in this encounter [facility] 08-13-2023 History and physical note HISTORY AND PHYSICAL EXAMINATION SERVICE DATE: 08/13/2023 SERVICE TIME: 1:07 PM PRIMARY CARE PHYSICIAN: Jose Buckner MD REASON FOR VISIT: Nancy Sue is a 63 year old female who is scheduled for FLEX BRONCHOSCOPY W/ NAVIGATIONAL IMAGE GUIDANCE at the request of Dr. Dao Dixon for consultation. My final recommendation will be communicated back to the requesting physician by way of shared medical record or letter. The patient has the following: ACTIVE PROBLEM LIST Rectal Cancer (Hcc) Malignant Neoplasm of Sigmoid Colon (Hcc) Hld (Hyperlipidemia) Htn (Hypertension) Class 2 Obesity With Body Mass Index (Bmi) of 37.0 to 37.9 in Adult Hypothyroidism Ponv (Postoperative Nausea and Vomiting) Subjective CHIEF COMPLAINT: Pre-op exam HPI: This is a 63 year old female that is scheduled for the above procedure. Patient has a history of a lung nodule. Patient denies any SOB or CP at this time. PAST MEDICAL HISTORY Diagnosis Date High cholesterol Hypothyroidism PAST SURGICAL HISTORY Procedure Laterality Date ;TOTAL HYSTERECTMY TUBE(S) &/OR OVARY COLONOSCOPY SCREENING LIPOMA (MEDIUM) FAMILY HISTORY Problem Relation Age of Onset Stroke Mother COPD Father Heart Father Colon Cancer Brother SOCIAL HISTORY: Social History Tobacco Use Smoking status: Never Smokeless tobacco: Never Vaping Use Vaping Use: Never used Substance Use Topics Alcohol use: Yes Comment: 2 drinks a couple times a month Drug use: Never Prior to Admission medications as of 08/13/23 1327 Medication Sig Last Dose Taking FERROUS SULFATE ORAL Take 20 mg by mouth once daily. Taking Yes ascorbic acid, vitamin C, (VITAMIN C) 500 mg tablet Take 500 mg by mouth once daily. Taking Yes folic acid 1 mg tablet Take 1 mg by mouth once daily. Taking Yes acetaminophen/diphenhydramine (TYLENOL PM ORAL) Take by mouth. Taking Yes levothyroxine (SYNTHROID) 50 mcg tablet Take 50 mcg by mouth once daily. Taking Yes Pramoxine-Hydrocortisone (ANALPRAM-HC) 1-1 % rectal cream Refill(s) 0, as directed Taking Yes Idtwi-2-ZRZ-EPA-Fish Oil (FISH OIL) 1,000 mg (120 mg-180 mg) cap Take 4,000 mg by mouth. Taking Yes iv contrast (will be provided with radiology test) MRI Rectum Inject, intravenously, once for 1 dose. No IV access, insert saline lock prior to the beginning of sedation, infusion, injection of imaging exam. Discontinue saline lock post exam. If Pt has a central line or IVAD, may access for administration according to line specific nursing protocol. Once exam is complete flush line and de-access according to line specific nursing protocol in the MR contrast administration guidelines link. enteric contrast (will be provided with radiology test) MRI RECTUM WO/W. Administer, As Directed One Time Only, via Oral, Rectal, both Oral and Rectal, Enteric Tube, Stoma or Indwelling Catheter, Enteric Contrast as designated per enteric contrast guidelines No medication comments found. ALLERGIES Allergen Reactions Crestor [Rosuvastat* Myalgia Mepqzeu-Dsm-Bqs Red* Other: See Comments, Myalgia, Unknown myalgias COVID VACCINATION STATUS: Fully vaccinated REVIEW OF SYSTEMS: PAIN ASSESSMENT: General: No weight loss, malaise or fevers. Neuro: No history of TIA's, stroke, PROCESS ARTIST tumor, impaired sensorium, hemiplegia, paraplegia or quadraplegia. No neurological symptoms or problems. Respiratory: See HPI Cardiovascular: Positive for: HLD, Hypertension, Negative for Arrhythmia, CAD, Chest Pain, DVT/PE GI: No history of GI symptoms or problems. No history of esophageal varices, recent ascites, or ETOH greater than 2 drinks per day. : No history of dysuria, frequency or incontinence,, stones or chronic kidney disease, No difficulty urinating, nocturia > 1 time per night or hematuria CUSHION MAKER HAND: Negative for abnormal vaginal bleeding, abnormal vaginal discharge. : Denies, No LMP recorded. Patient has had a hysterectomy. Endocrine: Hypothyroidism Hematology: No history of bleeding or clotting disorder. Pt is not taking anti-coagulation or platelet medications. No history of hematological symptoms or problems. Oncology: has not started treatment for rectal cancer Psych: No history of psychiatric symptoms or problems. Musculoskeletal: Negative for joint pain or swelling, back pain or muscle pain. Skin: Negative for lesions, rash and itching. Objective PHYSICAL EXAM: VITALS: BP 144/88 Pulse 79 Temp (Src) 97.9 (Temporal Artery) Resp 20 Ht 5' 5 (1.65m) Wt 225 lb (102.1kg) SpO2 97% BMI 37.44 kg/(m^2). General: Alert and oriented, No acute distress Skin: Normal color, no rash, no lesions. HEENT: EOM, pupils equal, round and reactive. Cardiovascular: Normal S1 & S2, no rubs, murmurs or gallops. No JVD. Pulse regular. Lungs: Normal breath sounds, no wheezes or crackles., No chest deformities or chest wall tenderness. Abdomen: Soft, non-tender, no rigidity., No masses or organomegaly. Extremities: No deformity, no edema or tenderness, no joint swelling or clubbing. Neurological: Normal cognition and motor skills. Gait normal. No weakness or sensory deficit. Pulses: Carotid and radial pulses normal +2. Diagnostic tests reviewed for today's visit: Lab Value Units Date High Low HB 13.0 g/dL 07/13/2023 15.5 11.5 HCT 39.6 % 07/13/2023 46.0 36.0 WBC 4.92 k/uL 07/13/2023 11.00 3.70 PLT 161 k/uL 07/13/2023 400 150 NA 141 mmol/L 07/13/2023 144 136 K 4.2 mmol/L 07/13/2023 5.1 3.7 GLUC 107 mg/dL 07/13/2023 99 74 BUN 20 mg/dL 07/13/2023 21 7 CREAT 0.91 mg/dL 07/13/2023 0.96 0.58 PTSEC No results within date range. INR No results within date range. APTT No results within date range. ALT 36 U/L 07/13/2023 38 7 AST 35 U/L 07/13/2023 35 13 TBILI 0.3 mg/dL 07/13/2023 1.3 0.2 TSH No results within date range. EKG 08/13/2023 Preliminary result: Sinus rhythm Inferior infarct, old Abnormal ECG Assessment/Plan Hypothyroidism Assessment: managed with med, stable Follows up with PCP Class 2 obesity with body mass index (BMI) of 37.0 to 37.9 in adult Assessment: diet and exercise encouraged HLD (hyperlipidemia) Assessment: diet controlled Follows up with PCP and cardiology HTN (hypertension) Assessment: not on medication at this time Follows up with PCP and cardiology Asymptomatic PONV (postoperative nausea and vomiting) Assessment: noted Rectal cancer (HCC) Assessment: chemo starting 08/29/23 METS: Climb a flight of stairs or walk up a hill (5.50 METs) Patient denies any chest pain or undue shortness of breath with the above physical activity. ANESTHESIA FINDINGS: Intubation History: No history of difficult intubation Significant Anesthesia Considerations: Postop nausea/vomiting Airway Exam: General: Normal appearance Mallampati Score is CLASS II ULBT: Class I - Lower incisors can bite the upper lip above the dawna line Neck: Normal appearance and function, Distance from hyoid to mentum during neck extension is at least 3 finger breaths Mouth: Normal tongue size and Mouth opening greater than 2 finger breaths Dentition: Intact Airway History: No abnormal airway history 06/22/2023 Sleep Apnea Probability Snores loudly: No Tired, fatigued or sleepy in daytime: No Stops breathing or choking/gasping during sleep: No High blood pressure: No Sleep Apnea Probability Score: (Sleep study not recommended) Sleep Apnea Probability Score 06/22/2023 Sleep Apnea Screen V2 28 (Sleep study not recommended) PLAN This patient is optimally prepared for surgery. CONSULTS: Patient does not require consults for optimization at this time. The Following Tests/Procedures Have Been Initiated: Labs not indicated per PACC protocol, EKG not indicated per PACC protocol Planned Anesthetic: Per anesthesia choice Instructions Given to Patient: Instructions located in the after visit summary. Patient given verbal and written preop instructions and voices comprehension and compliance. SIGNATURE: Sanam Salazar APRN.CNP PATIENT NAME: Nancy Sue DATE: August 13, 2023 TIME: 1:07 PM documented in this encounter [facility] 08-13-2023 History and physical note Interventional Pulmonary Consultation Date of Service: August 13, 2023 Patient: Nancy Sue Medical Record: [id number] Primary Care Physician: Jose Buckner MD Referring Provider: Dianne History of Present Illness Nancy Sue is a 63 year old female with a past history of colon cancer who was sent by Dr. Wing for evaluation and management of a lung nodule . My findings and recommendations will be communicated to the referring doctor by way of shared electronic medical record (or [place] mail). Patient was diagnosed with colon cancer in May. Staging workup has including PET scan, which showed mesenteric and RTP nodes, and a possible metastatic lung nodule. Patient scheduled to get FOxTROT neoadjuvant prior to surgery; lung nodule becomes important as it may trigger a metastectomy. Patient with no other significant medical history. Patient B/R [place]; a few jackson ago had a termite treater cold , with prolonged cough, went away on its own. Was treated with a few courses of antibiotics. Never smoker, no chronic lung disease. Review of Systems GENERAL: No weight loss, malaise or fevers., SEE HPI NECK: Negative for lumps, goiter, pain and significant neck swelling RESPIRATORY: Negative for cough, wheezing or shortness of breath. CARDIOVASCULAR: Negative for chest pain, leg swelling or palpitations. GI: See HPI MUSCULOSKELETAL: Negative for joint pain or swelling, back pain or muscle pain. HEMATOLOGY/LYMPHOLOGY Negative for prolonged bleeding, bruising easily or swollen nodes. ENDOCRINE: Negative for cold or heat intolerance, polyuria, polydipsia and goiter. NEURO: No history of headaches, syncope, paralysis, seizures or tremors All other reviewed and negative other than HPI. Past Medical History PAST MEDICAL HISTORY Diagnosis Date High cholesterol Past Surgical History PAST SURGICAL HISTORY Procedure Laterality Date ;TOTAL HYSTERECTMY TUBE(S) &/OR OVARY LIPOMA (MEDIUM) Family History FAMILY HISTORY Problem Relation Age of Onset Stroke Mother COPD Father Heart Father Colon Cancer Brother Social Historyy Social History Tobacco Use Smoking status: Never Smokeless tobacco: Never Vaping Use Vaping Use: Never used Substance Use Topics Alcohol use: Yes Comment: socially Drug use: Never Current Medications Current Outpatient Medications on File Prior to Visit Medication Sig acetaminophen/diphenhydramine (TYLENOL PM ORAL) Take by mouth. iv contrast (will be provided with radiology test) MRI Rectum Inject, intravenously, once for 1 dose. No IV access, insert saline lock prior to the beginning of sedation, infusion, injection of imaging exam. Discontinue saline lock post exam. If Pt has a central line or IVAD, may access for administration according to line specific nursing protocol. Once exam is complete flush line and de-access according to line specific nursing protocol in the MR contrast administration guidelines link. enteric contrast (will be provided with radiology test) MRI RECTUM WO/W. Administer, As Directed One Time Only, via Oral, Rectal, both Oral and Rectal, Enteric Tube, Stoma or Indwelling Catheter, Enteric Contrast as designated per enteric contrast guidelines levothyroxine (SYNTHROID) 50 mcg tablet Take 50 mcg by mouth once daily. Pramoxine-Hydrocortisone (ANALPRAM-HC) 1-1 % rectal cream Refill(s) 0, as directed Wzgrh-0-HDW-EPA-Fish Oil (FISH OIL) 1,000 mg (120 mg-180 mg) cap Take 4,000 mg by mouth. No current facility-administered medications on file prior to visit. Imaging Please see below Physical Exam BP 163/86 Pulse 77 Ht 5' 4 (1.63m) Wt 225 lb (102.1kg) SpO2 97[ROOM AIR]% BMI 38.60 kg/(m^2). GENERAL APPEARANCE: Patient in no acute distress. SKIN: No rashes or lesions. EYES: PERRLA, EOMI,, conjunctivae clear. OROPHARYNX: Lips, mucosa, and tongue normal. Teeth and gums normal. Oropharynx normal. NECK: Supple, no lymphadenopathy, no JVD. BACK: No CVA tenderness, no spinal tenderness LUNGS: Normal breath sounds, clear to auscultation, no wheezes, or crackles. HEART: Normal PMI, Regular rate/rhythm, normal heart sounds, and no murmurs. ABDOMEN: Soft, non tender, no palpable masses, normal bowel sounds, no abdominal bruits, No hepatosplenomegaly. EXTREMITIES: No edema or tenderness NEURO: Awake, alert and oriented x3, no involuntary motions. Assessment & Plan Lung nodule. Reviewed CT images personally. Small RLL medial segment nodule, measuring 6mm. Nodule is round and smooth bordered, and there is some corresponding right hilar (11R/12R) calcified adenopathy. The presence of calcified adenopathy suggests the nodule may be of benign origin; indeed the PET did not show much uptake in the nodule, which would support this. That said, the nodule does have concern for metastasis, so biopsy is recommended in this setting, namely robotic bronchoscopy. Discussed procedure with patient, and she is agreeable. Colon cancer. Per oncology. Dao Dixon MD Date: August 13, 2023 Time: 10:16 AM documented in this encounter [facility] 08-10-2023 Instructions Sanam Salazar APRN.PAROLE AGENT - 08/10/2023 11:31 AM EST PATIENT PREOPERATIVE INSTRUCTIONS Dao Dixon MD has scheduled you for your procedure at this surgery center: [facility]: [phone] --[id number] [address]. Please check in on the 1st floor at registration desk 6. Please read below carefully for your personalized instructions. Dietary Restrictions: - No solid food after midnight. - You may have 12 ounces of clear liquids (water, clear juices such as apple juice or gatorade, carbonated beverages, clear tea, black coffee, jello) until 2 hours before scheduled arrival at facility. Pre-Surgery Med Instructions Medication Instructions FERROUS SULFATE ORAL Do not take the day of surgery ascorbic acid, vitamin C, (VITAMIN C) 500 mg tablet Stop 7 days before surgery folic acid 1 mg tablet Stop 7 days before surgery acetaminophen/diphenhydramine (TYLENOL PM ORAL) Do not take the day of surgery levothyroxine (SYNTHROID) 50 mcg tablet Take the day of surgery with a small sip of water Pramoxine-Hydrocortisone (ANALPRAM-HC) 1-1 % rectal cream Aecjm-7-EKK-EPA-Fish Oil (FISH OIL) 1,000 mg (120 mg-180 mg) cap Stop 7 days before surgery If you start any new medications after today's visit, please contact the surgeon's office. Blood Thinning Medications: - Stop NSAIDS (Ibuprofen, Advil, Aleve, Motrin, Celebrex, Mobic, etc.) 7 days before surgery, as directed by your surgeon. - Stop Vitamin E, ALL multi-vitamins, herbals and dietary supplements 7 days before surgery. - You may take Tylenol (Acetaminophen) or any of your pain medications that do not contain aspirin or NSAIDS as needed. Important Reminders: - Candy, mints, and tobacco products are NOT permitted the morning of surgery. - Hearing aids, dentures and glasses may be worn the morning of surgery. - NO jewelry, body piercings, makeup, hairpins or contacts are to be worn the day of surgery. If you develop symptoms such as a fever, cold, or flu, or have other changes to your health within TWO DAYS of scheduled surgery or the morning of surgery, please contact the surgery center above. Personal Belongings: -Please have photo ID and insurance cards. -If you do not have a copy of advance directives on file with us, please bring a copy with you on the day of surgery. - Leave ALL valuables and money at home or with family members. For Outpatient Procedures: - YOU MUST HAVE A RESPONSIBLE EMAIL PRODUCER TAKE YOU HOME. A RANGE FEEDER OR WIRELESS SALES REPRESENTATIVE CANNOT BE MADE A RESPONSIBLE EMAIL PRODUCER. - We recommend that a responsible person stays with you overnight to take care of you. - You cannot stay in a hotel alone after outpatient surgery. You will not be permitted to have your surgery, if you do not have someone to take care of you. Arrival Time for Surgery: - The Surgery Center or hospital where you are having surgery will call the afternoon before surgery (or Sunday for Sunday surgery) with a scheduled arrival time. - If you have not heard by 4 pm, please contact the surgery center above. Please be aware that emergency situations arise, which may delay or change your surgical time. If this happens, we will notify you as soon as possible and regret any inconvenience. If you already have an Advance Directive, please fax a copy to [phone] or email to for it to be added to your chart. If you do not have an Advance Directive, you can find the appropriate form and more information at [email or web address]. We recommend that you complete the Advance Directive form found on the website and bring it with you the day of your surgery. It can be witnessed and scanned into your chart that day. documented in this encounter [facility] 08-10-2023 Miscellaneous Notes You are scheduled for a port placement, On 08/15/2023. You are to arrive at 2 pm and [facility]: Enter through [facility] entrance. Proceed to the 2nd floor Surgical Services Desk for check in. You can expect to be here for 3-5 hours. Diet: Do not eat any solid food after midnight the day of/night before your procedure. You may drink clear liquids until noon, which means black coffee, apple juice, black tea, or water only. Medications: Ok to take your cardiac, blood pressure, anti-seizure, and chronic pain medications with a sip of water, please take prior to arrival. Bring your current medication list. RADIOLOGY RECOMMENDS THESE MEDICATION RESTRICTIONS: Are you taking any of following medications? IF ok with your Prescribing Provider: Stop Plavix 5 days prior to this procedure. Stop Coumadin 5 days prior to this procedure. Stop Eliquis 48 Hours prior to this procedure. Stop Xarelto 24 Hours prior to this procedure. Hold Lovenox for 24 hours prior to this procedure. Stop oral hypoglycemic the day of this procedure Hold short acting insulin the day of procedure. Long acting insulin, take dose. If on mixed insulin - if BG> than 200 should take half the dose. If BG less < 200- don't take. Labs: Lab-work needs to be drawn? No.. Cast Iron Drain Pipe Layer/Transportation: How will you be arriving for your procedure? Private car. You will need a responsible adult to accompany you to and from the procedure. please call [phone] with any questions documented in this encounter [facility] 07-27-2023 Note [facility] 07-27-2023 Miscellaneous Notes Patient states she will talk to Dr. Montalvo about this referral today. Ivette Matos Reached out to [facility] for update. I had left her a vm on Sunday to call. I will make 2 more attempts before closing referral. Joann Sent email to [facility] to refer patient to Dr. Ildefonso Santiago at [facility] for second opinion regarding treatment and stage. Ivette Matos documented in this encounter [facility] 07-27-2023 Note HNO ID: [id number] Author: Tereza Zhang Service: ? Author Type: ? Type: Progress Notes Filed: 07/27/2023 9:48 AM Note Text: Patient called, and reviewed information for: Bronchoscopy Request: Please schedule patient for the following: Bronchoscopy Procedures: Galaxy [employer]ot Pre-Procedure visit required: Yes- Scheduled Visit type: New Consultation Anticipated Procedure Date: 08/22/23 Arrival Call: 08/21- day prior Physician Performing Bronchoscopy: Dr. Dixon Needs Labs: No Needs EKG: Yes- Walk in Needs CT: Yes EMN Bronchoscopy Protocol Chest CT- Scheduled Does the pt need cardiac clearance? No Is he/she on anticoagulants/anti-plt therapy? No Diagnosis/Reason for Bronchoscopy: RLL nodule in history colon cancer Referred by: Dianne Reviewed by: [facility] 07-26-2023 Note HNO ID: [id number] Author: Dao Dixon MD Service: ? Author Type: Physician Type: Progress Notes Filed: 07/26/2023 9:44 AM Note Text: Bronchoscopy Request: Please schedule patient for the following: Bronchoscopy Procedures: [employer] Pre-Procedure visit required: Yes Visit type: New Consultation Anticipated Procedure Date: 08/22/23 Physician Performing Bronchoscopy: Dr. Dixon Needs Labs: No Needs EKG: Yes Needs CT: Yes EMN Bronchoscopy Protocol Chest CT Does the pt need cardiac clearance? No Is he/she on anticoagulants/anti-plt therapy? No Diagnosis/Reason for Bronchoscopy: RLL nodule in history colon cancer Referred by: Dianne Reviewed by: GENE Dixon MD July 26, 2023 9:41 AM [facility] 07-26-2023 Miscellaneous Notes Patient will be starting treatment in early August. Referring this patient for a port placement. Thanks Soco! Ivette Matos documented in this encounter [facility] 07-26-2023 Miscellaneous Notes Images from the original note were not included. documented in this encounter [facility] 07-20-2023 Note [facility] 07-13-2023 Note [facility] 07-13-2023 Note [facility] 07-06-2023 Note [facility] 07-05-2023 Miscellaneous Notes Patient has been scheduled with Judit Hong on August 21. Patient notified. Thanks! Ivette Matos Pt is aware and agreeable to genetic counseling. PSS: Please call to schedule (she is aware it will probably be scheduled into September, as they discussed yesterday.) Ai Palomino RN I would advise she do it - it's an easier process than she may realize. It will not delay treatment and she could do it after treatment has started at anytime. Pt unable to schedule genetic counseling until September. She is asking if this is necessary for her treatment initiation? Do I really need it? She does not want to delay any treatment and is eager to begin. Brenda: please advise Ai Palomino RN VM left with Brenda's message: No evidence of iron deficiency as of now - would recommend she start taking folic acid 1 mg daily. I'd like to see her after her PET/CT. Recommend genetic counseling Appointments left in detai. 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 PSS: Please arrange for genetic counseling per Brenda's order placed Ai Palomino RN documented in this encounter [facility] 07-02-2023 Miscellaneous Notes I called and spoke with Patient and Confirmed appointment time with Dr. Montalvo on 07/23/23 @ 1015am. GERARDO Sinclair Pt aware and agreeable to no iron infusion at this time. She is scheduled for CT and PET. PSS: Pt needs scheduled for Brenda follow PET appt. the following week for results Ai Palomino RN The only thing I found is that she is just a little bit low on iron but she is not particularly anemic. So we can hold off on replacement for now. I will plan to see her back after PET/CT . That will need to be arranged. Brenda: Please review Iron labs and verify no need for iron at this time. Ai Palomino, RN Images from the original note were not included. Triage: Please see message from Dr. Wing with lab results. Thanks! Ivette Matos documented in this encounter [facility] 06-29-2023 Note [facility] 06-29-2023 Instructions Andrew Wing MD - 06/29/2023 12:11 PM EDT Labs today Will discuss with surgery regarding current findings. Keep CT pelvis appointment PET/CT as soon as able. Triage to call results next week - possible iron infusion documented in this encounter [facility] 06-29-2023 History of Presen t illness Narrative NAME: Nancy Sue CLINIC NO.: [id number] DATE OF SERVICE: June 29, 2023 (Dianne) Referring Provider: Philip Francois Consultation requested by Dr. Francois for an opinion regarding Ms. Nancy Sue, and my final recommendations will be communicated back to the requesting physician by way of shared medical record or letter via US mail. Additional Clinicians involved in Nancy Sue's care:Salbador Hirsch DIAGNOSIS: Sigmoid colon cancer ASSESSMENT: 63 year old with sigmoid adenocarcinoma pMMR that will need to complete staging studies prior to determination of surgery vs. Systemic therapy. She was diagnosed on colonoscopy done for rectal bleeding that started in February 2023. Will eval for possible iron deficiency anemia given her rectal bleeding. PLAN: Labs today Will discuss with surgery regarding current findings. Keep CT pelvis appointment PET/CT as soon as able. Triage to call results next week - possible iron infusion Recommend genetic counseling HPI: CASE HISTORY: Reverse Chronological Order 06/22/2023 - CT Chest/Abd : Right lower lobe subcentimeter pulmonary nodules, larger measuring 0.7 cm. Correlation with follow-up examinations is recommended, as the possibility of metastases is not excluded Lymph nodes: Several mildly enlarged periceliac/periportal lymph nodes are appreciated, largest measuring approximately 1.7 x 1.3 cm, image 35, series 6. Portacaval adenopathy measures 2.2 x 1.8 cm, image 42, series 6. Mild retrocaval, retroperitoneal adenopathy is appreciated, largest measuring 1.5 x 1.0 cm. Mildly prominent left periaortic retroperitoneal lymph node measures 1.5 x 1.0 cm, image 36, series 6 Additional subcentimeter retroperitoneal and gastrohepatic ligament lymph nodes are identified. 06/08/2023 - Flex Sig Dr. Francois - Malignant tumor in the distal sigmoid colon 05/30/2023 - Colonoscopy Dr. Lee - 3 polyps and recto-sigmoid mass - Invasive mod. Diff adenoca. February 2023 - bowel pressure and rectal bleeding. Initial Visit, June 29, 2023: Nancy Sue presents today Hematology and Oncology evaluation. She is a 63 year old female who had changes in bowel habits and presumed hemorrhoidal bleeding for 3 months. She underwent colonoscopy and was found to have a recto-sigmoid mass that was not obstructing by Dr Lee. Path consistent with malignancy. Staging studies incomplete but she does have selwyn-hepatis nodes that are concerning for metastatic disease. Additionally, lung nodules also concerning for metastasis. Continues to have bowel pressure. Rectal bleeding. Here with Leoncio who is a horse show judge and getting ready to retire. 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 REVIEW OF SYSTEMS Per HPI and otherwise negative by full review of organ systems. ECOG PERFORMANCE STATUS: 0 PHYSICAL EXAMINATION: Vitals: BP 159/77 Pulse 64 Temp (Src) 97.4 (Temporal) Resp 16 Ht 5' 4.567 [verified 2 MA's shoes off[ (1.64m) Wt 226 lb 9.6 oz (102.8kg) SpO2 98% BMI 38.22 kg/(m^2). Body surface area is 2.16 meters squared. Exam limited to gross visualization where appropriate. Gen.: This is an age-appropriate patient in no acute distress. Head: Appears atraumatic with no visible lesions. Eyes: Pupils equally round and reactive to light, extraocular muscles are intact. Neck: Supple. Respiratory: Appears to be respiring comfortably. Neurologic: Nonfocal to gross visualization. Alert and oriented 3. Psychiatric: No evidence of inappropriate anxiety or depression. Skin: Visible areas of skin without rash, lesions, wounds or petechiae. ALLERGIES: ALLERGIES Allergen Reactions Crestor [Rosuvastat* Myalgia Iiedwiu-Yxw-Rdc Red* Other: See Comments, Myalgia, Unknown myalgias MEDICATIONS: acetaminophen/diphenhydramine (TYLENOL PM ORAL) Take by mouth. iv contrast (will be provided with radiology test) MRI Rectum Inject, intravenously, once for 1 dose. No IV access, insert saline lock prior to the beginning of sedation, infusion, injection of imaging exam. Discontinue saline lock post exam. If Pt has a central line or IVAD, may access for administration according to line specific nursing protocol. Once exam is complete flush line and de-access according to line specific nursing protocol in the MR contrast administration guidelines link. enteric contrast (will be provided with radiology test) MRI RECTUM WO/W. Administer, As Directed One Time Only, via Oral, Rectal, both Oral and Rectal, Enteric Tube, Stoma or Indwelling Catheter, Enteric Contrast as designated per enteric contrast guidelines levothyroxine (SYNTHROID) 50 mcg tablet Take 50 mcg by mouth once daily. Pramoxine-Hydrocortisone (ANALPRAM-HC) 1-1 % rectal cream Refill(s) 0, as directed Snfxj-5-AKM-EPA-Fish Oil (FISH OIL) 1,000 mg (120 mg-180 mg) cap Take 4,000 mg by mouth. LABORATORY VALUES: WBC (k/uL) Date Value 06/29/2023 4.54 RBC (m/uL) Date Value 06/29/2023 4.25 Hemoglobin (g/dL) Date Value 06/29/2023 12.2 Hematocrit (%) Date Value 06/29/2023 37.5 MCV (fL) Date Value 06/29/2023 88.2 MCH (pg) Date Value 06/29/2023 28.7 MCHC (g/dL) Date Value 06/29/2023 32.5 RDW-CV (%) Date Value 06/29/2023 13.3 Platelet Count (k/uL) Date Value 06/29/2023 139 (L) MPV (fL) Date Value 06/29/2023 10.9 Glucose (mg/dL) Date Value 06/29/2023 112 (H) BUN (mg/dL) Date Value 06/29/2023 12 Creatinine (mg/dL) Date Value 06/29/2023 0.86 Sodium (mmol/L) Date Value 06/29/2023 143 Potassium (mmol/L) Date Value 06/29/2023 4.4 Chloride (mmol/L) Date Value 06/29/2023 105 CO2 (mmol/L) Date Value 06/29/2023 27 Protein, Total (g/dL) Date Value 06/29/2023 6.9 Albumin (g/dL) Date Value 06/29/2023 4.3 Calcium, Total (mg/dL) Date Value 06/29/2023 9.4 Alkaline Phosphatase (U/L) Date Value 06/29/2023 67 Bilirubin, Total (mg/dL) Date Value 06/29/2023 0.4 AST (U/L) Date Value 06/29/2023 34 ALT (U/L) Date Value 06/29/2023 30 CEA (ng/mL) Date Value 06/29/2023 1.5 06/05/2023 1.4 DIAGNOSIS: (C18.7) Malignant neoplasm of sigmoid colon (HCC) (primary encounter diagnosis) Plan: CONSULT TO ONCOLOGY, CBC + DIFF, COMP METABOLIC PANEL, IRON + TIBC, FERRITIN BLD, VITAMIN B12 BLOOD, FOLATE SERUM, CEA BLD, CBC + DIFF, COMP METABOLIC PANEL, RETIC COUNT, ERYTHROPOIETIN/EPO, NM PET/CT SKULL-THIGH INITIAL (D50.0) Iron deficiency anemia due to chronic blood loss Plan: CBC + DIFF, COMP METABOLIC PANEL, IRON + TIBC, FERRITIN BLD, VITAMIN B12 BLOOD, FOLATE SERUM, CEA BLD, CBC + DIFF, COMP METABOLIC PANEL, RETIC COUNT, ERYTHROPOIETIN/EPO, NM PET/CT SKULL-THIGH INITIAL PAST MEDICAL HISTORY Diagnosis Date High cholesterol PAST SURGICAL HISTORY Procedure Laterality Date ;TOTAL HYSTERECTMY TUBE(S) &/OR OVARY LIPOMA (MEDIUM) Social History Tobacco Use Smoking status: Never Smokeless tobacco: Never Vaping Use Vaping Use: Never used Substance Use Topics Alcohol use: Yes Comment: socially Drug use: Never FAMILY HISTORY Problem Relation Age of Onset Stroke Mother COPD Father Heart Father Colon Cancer Brother I spent a total of 70 minutes on the date of the service which included preparing to see the patient, [id number] patient care, completing clinical documentation, obtaining and/or reviewing separately obtained history, performing a medically appropriate examination, counseling and educating the patient/family/caregiver, ordering medications, tests, or procedures, communicating with other HCPs (not separately reported), independently interpreting results (not separately reported), communicating results to the patient/family/caregiver, and care coordination (not separately reported). Andrew Wing MD, CPE Hematology and Oncology Services Provided at: [place], [place] CC: Jose Francois documented in this encounter [facility] 06-25-2023 Miscellaneous Notes Called patient to discuss appointments for medical oncology and CT pelvis. She preferred to call Karla herself to schedule these. Provided her with the phone number. She said if she feels they are scheduled to far in the future, she will let me know and I will try to find earlier appointments for her at another location. documented in this encounter [facility] 06-25-2023 Miscellaneous Notes Updated patient on CT results showing enlarged portocaval nodes and plan to refer to med/onc for evaluation. She will likely need chemo first. Med/onc referral placed. CT Pelvis ordered. Will post-op surgery that was tentatively planned for 07/06. Patient has questions regarding scheduled surgical procedure. Please call [phone] documented in this encounter [facility] 06-22-2023 Note [facility] 06-22-2023 Note [facility] 06-21-2023 Miscellaneous Notes Call placed to patient re: plan of care. No Answer, left message that Dr Francois will be calling her to discuss plan once imaging is completed- scheduled tomorrow. LM that tentative OR date will be noticed in her My Chart and will call next week to confirm. documented in this encounter [facility] 06-11-2023 Miscellaneous Notes Outside pathology 2nd read documented in this encounter [facility] 06-08-2023 Nurse Note PATIENT EDUCATION TOPIC: PROCEDURE / SURGERY: Procedure/Surgery: Flex sig PATIENT NAME: Nancy Sue PATIENT LOCATION: Room/bed info not found READINESS TO LEARN COGNITIVE ABILITY: Alert and oriented MOTIVATION TO LEARN: Interested FAMILY SUPPORT: None - Unavailable/disinterested INSTRUCTION PROVIDED TO: Patient PATIENT LEARNS BEST BY: Individual Instruction FACTORS AFFECTING LEARNING: None PHYSICAL LIMITATIONS AFFECTING LEARNING: None LEARNING RESPONSE DIAGNOSIS: ADULT: colon cancer PATIENT/FAMILY RESPONSE: Verbalizes understanding of: POST-PROCEDURE INSTRUCTIONS-Correct actions to take to reduce post procedure complications METHOD OF INSTRUCTION: Individual instruction FOLLOW-UP PLAN: Complete - No need for follow-up INSTRUCTIONAL AIDS USED: NA SUPPLEMENTAL MATERIAL PROVIDED TO PATIENT: None REFERRAL (RECOMMENDATION): None PATIENT EDUCATION TOPIC: PROCEDURE / SURGERY: Procedure/Surgery: Sigmoigoscopy PATIENT NAME: Nancy Sue PATIENT LOCATION: Room/bed info not found READINESS TO LEARN COGNITIVE ABILITY: Alert and oriented MOTIVATION TO LEARN: Interested FAMILY SUPPORT: Unable to assess - Family not present INSTRUCTION PROVIDED TO: Patient PATIENT LEARNS BEST BY: Individual Instruction FACTORS AFFECTING LEARNING: None PHYSICAL LIMITATIONS AFFECTING LEARNING: None LEARNING RESPONSE DIAGNOSIS: ADULT: Sigmoidoscopy PATIENT/FAMILY RESPONSE: Information received as demonstrated by interest and questions METHOD OF INSTRUCTION: Individual instruction FOLLOW-UP PLAN: Complete - No need for follow-up INSTRUCTIONAL AIDS USED: NA SUPPLEMENTAL MATERIAL PROVIDED TO PATIENT: None REFERRAL (RECOMMENDATION): None documented in this encounter [facility] 06-08-2023 History and physical note ENDO HISTORY AND PHYSICAL EXAMINATION SHORT FORM EVALUATION DATE: 06/08/2023 EVALUATION TIME: 1.32pm CHIEF COMPLAINT: Rectal vs colon cancer HPI: This is a 63 year old female who presents with flexible sigmoidoscopy in setting of new diagnosis of adenocarcinoma. Scope to document location. PAST MEDICAL HISTORY: No past medical history on file. PAST SURGICAL HISTORY: No past surgical history on file. SOCIAL HISTORY: FAMILY HISTORY: No family history on file. ALLERGIES: ALLERGIES Allergen Reactions Crestor [Rosuvastat* Myalgia MEDICATIONS: Prior to Admission Medications: Pramoxine-Hydrocortisone (ANALPRAM-HC) 1-1 % rectal cream Refill(s) 0, as directed iv contrast (will be provided with radiology test) MRI Rectum Inject, intravenously, once for 1 dose. No IV access, insert saline lock prior to the beginning of sedation, infusion, injection of imaging exam. Discontinue saline lock post exam. If Pt has a central line or IVAD, may access for administration according to line specific nursing protocol. Once exam is complete flush line and de-access according to line specific nursing protocol in the MR contrast administration guidelines link. enteric contrast (will be provided with radiology test) MRI RECTUM WO/W. Administer, As Directed One Time Only, via Oral, Rectal, both Oral and Rectal, Enteric Tube, Stoma or Indwelling Catheter, Enteric Contrast as designated per enteric contrast guidelines levothyroxine (SYNTHROID) 50 mcg tablet Take 50 mcg by mouth once daily. Rhudc-8-XAW-EPA-Fish Oil (FISH OIL) 1,000 mg (120 mg-180 mg) cap Take 4,000 mg by mouth. No current facility-administered medications for this encounter. REVIEW OF SYSTEMS: PROCESS ARTIST: Negative for CVA, Negative for TIA Respiratory: Negative for smoking, dyspnea, cough, asthma, bronchitis, emphysema Cardiovascular: Negative for chest pain, leg swelling or palpitations. GI: See HPI : No history of dysuria, frequency and incontinence Endocrine: Negative for cold or heat intolerance, polyuria, polydipsia and goiter. Hematology Negative for prolonged bleeding, bruising easily, and swollen nodes. PHYSICAL EXAM: Patient Vitals for the past 24 hrs: BP Temp Temp src Pulse Resp SpO2 06/08/23 1327 147/93 36.1 C (97 F) Temporal 81 21 97 % General Appearance: well appearing, alert, in no acute distress Oropharynx: teeth normal, oropharynx normal Neck: Full range of motion, Supple Lungs: Unlabored on room air Heart: RRR without murmur, gallop, or rubs. No ectopy, Not examined Abdomen: Abdomen soft, non-tender, non-distended. Bowel sounds normal. No masses, organomegaly Extremities: No clubbing, cyanosis, or edema. IMPRESSION: Rectal vs colon cancer PLAN OF TREATMENT: Flexible Sigmiodoscopy SIGNATURE: Philip Francois MD PATIENT NAME: Nancy Sue DATE: June 08, 2023 TIME: 1:32 PM documented in this encounter [facility] 06-05-2023 Note [facility] 05-08-2023 Note Chief Complaint consultation for rectal bleeding HPI Staff 63 year old female presents on consultation from Dr. Buckner for rectal bleeding. Reports daily rectal bleeding x 3 months. Reports blood is bright red and only with bowel movements. She is unsure if there is blood mixed in stool. Reports consistency of stool is unchanged but is having frequent, small bowel movements. States on occasion she will have urge to defecate but will only pass small amount of blood. Denies abdominal pain, nausea or vomiting. Had short term episode of rectal pain which she contributed to hemorrhoid; prescribed Hydrocortisone-Pramoxine cream which resolved rectal pain. Last colonoscopy completed 03/2020 with tubular adenoma and prominent rectal veins. Brother with history of colon cancer, diagnosed age 60. History of Present Illness 63 yo female with h/o hypothyroidism, hyperlipidemia; referred for 3 month h/o rectal bleeding; daily BRBPR with bms, normal stool consistency, no pain or straining; more frequent smaller bms; no N/V; no abd pain; some urgency at times, and some of those times only passes a small amount of blood; no asa or NSAID use; no recent antibiotic therapy or travel; last colonoscopy 3 years ago, with small tubular adenoma removed from rectum, and hyperplastic sigmoid polyp; fmhx of colon cancer in patient's brother, dx at age 60; no fmhx of IBD; no tobacco use. Review of Systems PHQ Score Initial Depression Screen Score: 0 ROS - Provider Constitutional: no fever, no sweats, no weight loss. Eyes: no glasses, no blurred vision, no visual loss. ENMT: no dentures, no hoarseness, no swallowing difficulties, no hearing loss, no ear infection(s), no nose bleeds. Cardiovascular: normal blood pressure, no chest pain, regular heartbeat, no heart murmur. Respiratory: no shortness of breath, no cough, no asthma, no wheezing. Gastrointestinal: no nausea, no vomiting, no diarrhea, no constipation, no blood in stool, yes change in bowel habits, no abdominal pain, no hepatitis. Genitourinary: no kidney stones, no urine infection, no dysuria. Musculoskeletal: no pain, no weakness. Skin: no changing moles, no rash, no skin lumps. Neurologic: no seizures, no epilepsy, no headache. Psychiatric: no emotional or psychiatric problem. Heme/Lymph: no bleeding problems, no anemia, no blood clots, no transfusions. Allergy/Immunologic: no swollen lymph nodes/glands, no IV drug abuse. Other: Additional ROS info: Except as noted in the above Review of Systems and in the History of Present Illness, all other systems have been reviewed and are negative or noncontributory. Physical Exam Vitals & Measurements HR: 80(Peripheral) RR: 16 BP: 128/88 HT: 65 in HT: 165.1 cm WT: 103.6 kg WT: 227.92 lb BMI: 38.01 HEENT: normal conjunctiva, sclera clear, no scleral icterus, EOM intact, PERRLA, oral mucosa moist without lesions. Neck: trachea midline, no mass, symmetric, no thyromegaly or nodules, no adenopathy Respiratory: lungs CTA, respirations non labored. Cardiovascular: regular rate and rhythm, no murmur, no pedal edema or varicosities. Gastrointestinal: obese, soft, non distended, no tenderness, no masses, no palpable hernias, diastasis recti no, no hepatosplenomegaly; normal bs Lymphatic: no cervical adenopathy, no supraclavicular adenopathy. Musculoskeletal: normal gait, digits and nails without infection, nodes, cyanosis, clubbing. Skin: no rashes, no lesions, no ulcers, no subcutaneous nodules, induration. Psychiatric/Neuro: oriented to time, place, person, judgement normal, affect appropriate for age, insight intact, no focal deficits. Tests: review of old records completed, Discussed surgical options, risks, and possible complications with patient. Assessment/Plan 1. Rectal bleeding (K62.5: Hemorrhage of anus and rectum) plan colonoscopy under anesthesia for further evaluation, informed consent obtained. 2. Change in bowel habits (R19.4: Change in bowel habit) see # 1 3. Personal history of colonic polyps (Z86.010: Personal history of colonic polyps) see # 1 Follow-up No qualifying data available Problem List/Past Medical History Ongoing BMI 38.0-38.9,adult Change in bowel habits Diverticulitis of colon Hemorrhoid Hiatal hernia History of gallstones Hyperlipidemia Hyperplastic colon polyp IBS (irritable bowel syndrome) Morbid obesity Personal history of colonic polyps Positive colorectal cancer screening using Cologuard test Rectal bleeding Historical No qualifying data Procedure/Surgical History Colonoscopy (03/2020), Colonoscopy, Excision of lipoma, Salpingectomy, Vaginal hysterectomy. Medications Fish Oil 1000 mg oral capsule, 4000 mg= 4 cap(s), Oral, Daily hydrocortisone-pramoxine 1%-1% rectal cream levothyroxine 50 mcg (0.05 mg) Tab, 50 mcg= 1 tab(s), Oral, Daily Allergies pravastatin (Myalgia) Social History Alcohol Current, Liquor, 1-2 times per week, 02/24/2020 Substance Abuse - De (more content not included)... [facility] Comment on above: Result Comment: Elec tronically Signed By: ROSA MUNOZ, Salbador Brewer\Date and Time Signed: 05/08/23 16:22 EDT 07-05-2022 Note EKG reviewed 6- Stress test 09/28/2015- [facility] 07-05-2022 Note F/U with PCP [facility] 07-05-2022 Note Script for labs give n CBC, CMP, Lipids, TSH and A1C [facility] 07-05-2022 Note B/p currently 128/84 in office with reported elevated b/p in the past while at home Will continue to monitor- no medication at this time Renal function normal previously [facility] 07-05-2022 Note New patient here to re-establish care. C/o hypertension. Sometimes BP is 130's systolic, other times goes as high as 170's systolic. She had normal stress test and echo a few years ago. She has tried a few statins and has been unable to tolerate them. Has not had blood work since 2017. Review of Systems Respiratory: Positive for snoring. All other systems reviewed and are negative. [facility] 07-05-2022 Note HPI: Nancy Sue is a 62 y.o. female here for Hypertension and Hyperlipidemia HPI New patient here to re-establish care. C/o hypertension. Sometimes BP is 130's systolic, other times goes as high as 170's systolic. She had normal stress test and echo a few years ago. She has tried a few statins and has been unable to tolerate them. Has not had blood work since 2017. Denied chest pain, shortness of breath, orthopnea, palpitations. Admits that she has noted elevated b/p on home monitor. Denied headache, dizziness, vision changes, palpitations, one sided weakness. Denied syncope. PMH of HPL of which she has tried multiple different statins and was unable to tolerate r/t mylagias. Known h/o elevated elevated liver function PSH: no pertinent cardiac surgery or procedures. FMH- no early heart disease Social- Never a smoker, social alcohol and denied illicit drug use. Review of Systems Respiratory: Positive for snoring. All other systems reviewed and are negative. Visit Vitals BP 128/84 (BP Location: Left arm, Patient Position: Sitting) Pulse 72 Ht 1.676 m (5' 6 ) Wt 107 kg (236 lb) SpO2 96% BMI 38.09 kg/m??? Smoking Status Never BSA 2.23 m??? Medications: No current outpatient medications on file prior to visit. No current facility-administered medications on file prior to visit. Physical Exam: Constitutional: Appearance: Normal appearance. Obese, Without apparent distress HENT: Head: Normocephalic and atraumatic. Nose: Nose normal. Mouth/Throat: Mouth: Mucous membranes are moist. Eyes: Extraocular Movements: Extraocular movements intact. Conjunctiva/sclera: Conjunctivae normal. Neck: Vascular: No JVD. Cardiovascular: Rate and Rhythm: Normal rate and regular rhythm. Pulses: Dorsalis pedis pulses are 3 on the right side and 3on the left side. Posterior tibial pulses are 3 on the right side and 3 on the left side. Heart sounds: Normal heart sounds, S1 normal and S2 normal. Pulmonary: Effort: Pulmonary effort is normal. Breath sounds: Normal breath sounds. Abdominal: General: Bowel sounds are normal. Palpations: Abdomen is soft. Musculoskeletal: General: Normal range of motion. Cervical back: Normal range of motion. Right lower leg: No edema. Left lower leg: No edema. Skin: General: Skin is warm and dry. Capillary Refill: Capillary refill takes less than 2 seconds. Neurological: General: No focal deficit present. Mental Status: She is alert and oriented to person, place, and time. Psychiatric: Mood and Affect: Mood normal. Behavior: Behavior normal. Thought Content: Thought content normal. Judgment: Judgment normal. Labs: 04/11/17- CBC normal, K+ 4.7, BUN 22, CR 0.81- normal AST 45, ALT 60, ALP 61- slightly elevated LDL 78, Chol 144, HDL 45, Trig 116 Last lab values have been reviewed CV Testin09/28/15 Echo Assessment/Plan: Elevated blood pressure reading without diagnosis of hypertension B/p currently 128/84 in office with reported elevated b/p in the past while at home Will continue to monitor- no medication at this time Renal function normal previously Mixed hyperlipidemia Script for labs given CBC, CMP, Lipids, TSH and A1C Abnormal liver enzymes F/U with PCP Electrocardiogram abnormal EKG reviewed 09/13/2015- Stress test 09/28/2015- RTC 3-6 months [facility] Evaluation + Plan note No data available for this section General Surgery [facility] Evaluation note Diagnosis Rectal cancer (HCC) Malignant neoplasm of rectum [facility] 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 [facility] Malignant neoplasm of sigmoid colon (HCC)- Primary Malignant neoplasm of sigmoid colon [facility] Diagnosis Malignant neoplasm of sigmoid colon (HCC)- Primary Malignant neoplasm of sigmoid colon Iron deficiency anemia due to chronic blood loss Iron deficiency anemia secondary to blood loss (chronic) [facility] [place] [facility] Diagnosis Lung nodule- Primary Solitary pulmonary nodule Rectal cancer (HCC) Malignant neoplasm of rectum Malignant neoplasm of sigmoid colon (HCC) Malignant neoplasm of sigmoid colon Lung nodule Solitary pulmonary nodule [facility] [place] [facility] Diagnosis Pre-op evaluation- Primary Preoperative examination, unspecified Hyperlipidemia, unspecified hyperlipidemia type Hypertension, unspecified type Class 2 obesity with body mass index (BMI) of 38.0 to 38.9 in adult, unspecified obesity type, unspecified whether serious comorbidity present Hypothyroidism, unspecified type PONV (postoperative nausea and vomiting) Nausea with vomiting Rectal cancer (HCC) Malignant neoplasm of rectum Malignant neoplasm of sigmoid colon (HCC) Malignant neoplasm of sigmoid colon Lung nodule Solitary pulmonary nodule [facility] Lung nodule Solitary pulmonary nodule Malignant neoplasm of sigmoid colon (HCC) Malignant neoplasm of sigmoid colon Lung nodule Solitary pulmonary nodule [facility] Diagnosis Lung nodule Solitary pulmonary nodule Malignant neoplasm of sigmoid colon (HCC) Malignant neoplasm of sigmoid colon Lung nodule Solitary pulmonary nodule [facility] Diagnosis Malignant neoplasm of sigmoid colon (HCC)- Primary Malignant neoplasm of sigmoid colon Iron deficiency anemia due to chronic blood loss Iron deficiency anemia secondary to blood loss (chronic) Lung nodule Solitary pulmonary nodule [facility] Diagnosis Malignant neoplasm of sigmoid colon (HCC)- Primary Malignant neoplasm of sigmoid colon Family history of colon cancer Family history of malignant neoplasm of gastrointestinal tract Family history of brain cancer Family history of other specified malignant neoplasm Lung nodule Solitary pulmonary nodule [facility] Diagnosis Malignant neoplasm of sigmoid colon (HCC)- Primary Malignant neoplasm of sigmoid colon [facility] Diagnosis Malignant neoplasm of sigmoid colon (HCC) Malignant neoplasm of sigmoid colon [facility] [place] [facility]* Diagnosis Malignant neoplasm of sigmoid colon (HCC)- Primary Malignant neoplasm of sigmoid colon Rectal cancer (HCC) Malignant neoplasm of rectum documented in this encounter [facility] note* Diagnosis Malignant neoplasm of sigmoid colon (HCC) Malignant neoplasm of sigmoid colon documented in this encounter [facility] note* Diagnosis Other iron deficiency anemia- Primary Malignant neoplasm of sigmoid colon (HCC) Malignant neoplasm of sigmoid colon documented in this encounter [facility] note* Diagnosis 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 Malignant neoplasm of descending colon documented in this encounter [facility] note* Diagnosis Malignant neoplasm of sigmoid colon (HCC)- Primary Malignant neoplasm of sigmoid colon Rectal cancer (HCC) Malignant neoplasm of rectum documented in this encounter [facility] note* Diagnosis Malignant neoplasm of sigmoid colon (HCC) Malignant neoplasm of sigmoid colon documented in this encounter [facility] note* Diagnosis Malignant neoplasm of sigmoid colon (HCC)- Primary Malignant neoplasm of sigmoid colon documented in this encounter [facility] note* Diagnosis Malignant neoplasm of sigmoid colon (HCC)- Primary Malignant neoplasm of sigmoid colon documented in this encounter [facility] note* Diagnosis Malignant neoplasm of sigmoid colon (HCC)- Primary Malignant neoplasm of sigmoid colon Rectal cancer (HCC) Malignant neoplasm of rectum documented in this encounter [facility] note* Diagnosis Malignant neoplasm of sigmoid colon (HCC)- Primary Malignant neoplasm of sigmoid colon documented in this encounter [facility] note* Diagnosis Pre-op evaluation- Primary Preoperative examination, unspecified Other iron deficiency anemia Hypothyroidism, unspecified type Hyperlipidemia, unspecified hyperlipidemia type Hypertension, unspecified type PONV (postoperative nausea and vomiting) Nausea with vomiting Malignant neoplasm of sigmoid colon (HCC) Malignant neoplasm of sigmoid colon Class 2 obesity with body mass index (BMI) of 37.0 to 37.9 in adult, unspecified obesity type, unspecified whether serious comorbidity present Cancer of sigmoid colon (HCC) Malignant neoplasm of sigmoid colon Lymphadenopathy, abdominal Enlargement of lymph nodes documented in this encounter [facility] Discharge instructions No data available for this section General Surgery [facility] Progress note No data available for this section General Surgery [facility] Reason for referral (narrative)* Outpatient Procedure (Routine) - Closed Specialty Diagnoses / Procedures Referred By Contac t Referred To Contact [facility] Diagnoses Rectal cancer (HCC) Procedures SIGMOIDOSCOPY SIGMOIDOSCOPY FLX DX W/COLLJ SPEC BR/[place] [address] [place] [address] [facility] [address] [place] [address] Referral ID Status Reason Start Date Expiration Date V isits Requested Visits Authorized [id number] Closed Auto-Generate d Referral 06/05/2023 06/05/2024 1 1 [facility] for referral (narrative)* Outpatient Procedure (Routine) - Closed Specialty Diagnoses / Procedures Referred By Contac t Referred To [facility] Diagnoses Lung nodule Procedures ECG COMPLETE ECG ROUTINE ECG W/LEAST 12 LDS W/I&R Zoey, Dao Ellis MD [address] [place] [address] [place] [id number] Referral ID Status Reason Start Date Expiration Date V isits Requested Visits Authorized [id number] Closed Auto-Generate d Referral 07/26/2023 07/25/2024 1 1 [facility] for visit Narrative* Outpatient Procedure (Routine) - Closed Specialty Diagnoses / Procedures Referred By Contac t Referred To Contact [facility] Diagnoses Rectal cancer (HCC) Procedures SIGMOIDOSCOPY SIGMOIDOSCOPY FLX DX W/COLLJ SPEC BR/[place] [address] [place] [address] [facility] [address] [place] [address] Referral ID Status Reason Start Date Expiration Date V isits Requested Visits Authorized [id number] Closed Auto-Generate d Referral 06/05/2023 06/05/2024 1 1 [facility] for visit Narrative* Outpatient Procedure (Routine) - Closed Specialty Diagnoses / Procedures Referred By Contac t Referred To [facility] Diagnoses Lung nodule Procedures ECG COMPLETE ECG ROUTINE ECG W/LEAST 12 LDS W/I&R Dao Dixon MD [address] [place] [address] [facility] [place] [facility] [place] [address] Referral ID Status Reason Start Date Expiration Date V isits Requested Visits Authorized [id number] Closed Auto-Generate d Referral 07/26/2023 07/25/2024 1 1 [facility] Summary Purpose Family History No Family History Records FoundNo Family History Records FoundNo Family History Records FoundNo Family History Records FoundNo Family History Records FoundNo Family History Records Found Advance Directives No Advanced Directives Records FoundNo Advanced Directives Records FoundNo Advanced Directives Records FoundNo Advanced Directives Records FoundNo Advanced Directives Records FoundNo Advanced Directives Records Found Reason for Referral Specialty Diagnoses / Procedures Referred By Contac t Referred To Contact CT IMAGING Diagnoses Malignant neoplasm of descending colon (HCC) Procedures CT CHEST W IVCON DIAGNOSTIC COMPUTED TOMOGRAPHY THORAX W/CONTRAST Andrew Wing MD [address] [place] [address] [place] [address] Ct Imaging [facility] Referral ID Status Reason Start Date Expiration Date V isits Requested Visits Authorized [id number] Open Auto-Generate d Referral 11/07/2023 11/22/2024 1 1 Specialty Diagnoses / Procedures Referred By Contac t Referred To Contact CT IMAGING Diagnoses Malignant neoplasm of descending colon (HCC) Procedures CT ABD/PEL W IVCON CT ABD & PELVIS W/CONTRAST Andrew Wing MD [address] [place] [address] [place] [address] Ct Imaging [facility] Referral ID Status Reason Start Date Expiration Date V isits Requested Visits Authorized [id number] Open Auto-Generate d Referral 11/07/2023 11/22/2024 1 1 Specialty Diagnoses / Procedures Referred By Contac t Referred To Contact CT IMAGING Diagnoses Lung nodule Procedures CT CHEST WO IVCON DIAGNOSTIC COMPUTED TOMOGRAPHY THORAX W/O CNTRST Dao Dixon MD [address] [place] [address] [place] [address] Referral ID Status Reason Start Date Expiration Date V isits Requested Visits Authorized [id number] Closed Auto-Generate d Referral 08/01/2023 08/31/2023 1 1 Specialty Diagnoses / Procedures Referred By Contac t Referred To Contact Diagnoses Malignant neoplasm of sigmoid colon (HCC) Procedures CONSULT TO MEDICAL GENETICS - CANCER MEDICAL GENETICS COUNSELING EACH 30 MINUTES Andrew Wing MD [address] [place] [address] [facility] [address] [place] [address] Referral ID Status Reason Start Date Expiration Date Visits Requested Visits Authorized [id number] Pending Review PCP Requested Referral Auto-Generate d Referral 07/02/2024 1 1 Specialty Diagnoses / Procedures Referred By Lupillo aquino Referred To Contact [facility] Diagnoses Malignant neoplasm of sigmoid colon (HCC) Iron deficiency anemia due to chronic blood loss Procedures NM PET/CT SKULL-THIGH INITIAL PET IMAGING CT ATTENUATION SKULL BASE MID-THIGH Andrew Wing MD [address] [place] [address] Molecular & Functional Imaging [address] [place] [address] Referral ID Status Reason Start Date Expiration Date V isits Requested Visits Authorized [id number] Open Auto-Generate d Referral 06/29/2023 07/28/2024 1 1 Additional Source Comments INFORMATION SOURCE (unrecogn ized section and content) DATE CREATED AUTHOR 07/07/2022 [facility] DATE CREATED AUTHOR AUTHOR'S ORGANIZ ATION 12/03/2022 [facility] DATE CREATED AUTHOR AUTHOR'S ORGANIZ ATION 08/17/2023 [facility] DATE CREATED AUTHOR AUTHOR'S ORGANIZ ATION 08/27/2023 [facility] DATE CREATED AUTHOR AUTHOR'S ORGANIZ ATION 11/23/2023 [facility] DATE CREATED AUTHOR AUTHOR'S ORGANIZ ATION 12/20/2023 [facility] Patient Care team informatio n (unrecognized section and content) 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 Therapy Asst Relationship Specialty Start Date End Date Jose Buckner MD [address] [facility] [address] PCP - General Family Medicine 06/22/23 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 Therapy Asst Relationship Specialty Start Date End Date Jose Buckner MD [address] [facility] [address] PCP - General Family Medicine 06/22/23 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 Therapy Asst Relationship Specialty Start Date End Date Jose Buckner MD [address] [facility] [place] [address] PCP - General Family Medicine 06/22/23 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 Therapy Asst Relationship Specialty Start Date End Date Jose Buckner MD [address] [facility] [place] [address] PCP - General Family Medicine 06/22/23 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 Therapy Asst Relationship Specialty Start Date End Date Jose Buckner MD [address] [facility] [place] [address] PCP - General Family Medicine 06/22/23 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 Therapy Asst Relationship Specialty Start Date End Date Jose Buckner MD [address] [facility] [place] [address] PCP - General Family Medicine 06/22/23 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 Therapy Asst Relationship Specialty Start Date End Date Jose Buckner MD [address] [facility] [place] [address] PCP - General Family Medicine 06/22/23 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 Therapy Asst Relationship Specialty Start Date End Date Jose Buckner MD [address] [facility] [place] [address] PCP - General Family Medicine 06/22/23 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 Therapy Asst Relationship Specialty Start Date End Date Jose Buckner MD [address] [facility] [place] [address] PCP - General Family Medicine 06/22/23 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 Therapy Asst Relationship Specialty Start Date End Date Jose Buckner MD [address] [facility] [place] [address] PCP - General Family Medicine 06/22/23 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 Therapy Asst Relationship Specialty Start Date End Date Jose Buckner MD [address] [place] [address] PCP - General Family Medicine 06/22/23 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 Therapy Asst Relationship Specialty Start Date End Date Jose Buckner MD [address] [place] [address] PCP - General Family Medicine 06/22/23 Andrew Wing MD [address] [place] [address] [place] [address] Physician Hematology/Oncology 08/14/23 Darvin Carson APRN.PAROLE AGENT [address] [place] [address] [place] [address] Nurse Practitioner Hematology/Oncology 08/14/23 Lidia Teran, MONET [address] [place] [address] Specialty Washcloth Folder Hematology/Oncology 08/14/23 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 Therapy Asst Relationship Specialty Start Date End Date Jose Buckner MD [address] [place] [address] PCP - General Family Medicine 06/22/23 Andrew Wing MD [address] [place] [address] Physician Hematology/Oncology 08/14/23 Darvin Carson, SUPERVISOR [employer]BE[employer] REMOVAL.PAROLE AGENT [address] [place] [address] Nurse Practitioner Hematology/Oncology 08/14/23 Lidia Teran, MONET [address] [place] [address] Specialty Washcloth Folder Hematology/Oncology 08/14/23 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 Therapy Asst Relationship Specialty Start Date End Date Jose Buckner MD [address] [place] [address] PCP - General Family Medicine 06/22/23 Andrew Wing MD [address] [place] [address] Physician Hematology/Oncology 08/14/23 Darvin Carson, SUPERVISOR [employer]BE[employer] REMOVAL.PAROLE AGENT [address] [place] [address] Nurse Practitioner Hematology/Oncology 08/14/23 Lidia Teran, MONET [address] [place] [address] Specialty Washcloth Folder Hematology/Oncology 08/14/23 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 Therapy Asst Relationship Specialty Start Date End Date Jose Buckner MD [address] [place] [address] PCP - General Family Medicine 06/22/23 Andrew Wing MD [address] [place] [address] Physician Hematology/Oncology 08/14/23 Darvin Carson, SUPERVISOR [employer] REMOVAL.PAROLE AGENT [address] [facility] [address] Nurse Practitioner Hematology/Oncology 08/14/23 Lidia Teran, MONET [address] [place] [address] Specialty Washcloth Folder Hematology/Oncology 08/14/23 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 Therapy Asst Relationship Specialty Start Date End Date Jose Buckner MD [address] [place] [address] PCP - General Family Medicine 06/22/23 Andrew Wing MD [address] [place] [address] Physician Hematology/Oncology 08/14/23 Darvin Casron, SUPERVISOR [employer] REMOVAL.PAROLE AGENT [address] [place] [address] Nurse Practitioner Hematology/Oncology 08/14/23 Lidia Teran, MONET [address] [place] [address] Specialty Washcloth Folder Hematology/Oncology 08/14/[address] [place] [address] Registered Dietitian Nutrition 08/29/23 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 Therapy Asst Relationship Specialty Start Date End Date Jose Buckner MD [address] [place] [address] PCP - General Family Medicine 06/22/23 Andrew Wing MD [address] [place] [address] [place] [address] Physician Hematology/Oncology 08/14/23 Darvin Carson, SUPERVISOR [employer] REMOVAL.PAROLE AGENT [address] [place] [address] Nurse Practitioner Hematology/Oncology 08/14/23 Lidia Teran, MONET [address] [place] [address] Specialty Washcloth Folder Hematology/Oncology 08/14/[address] [facility] [address] [place], [facility] Registered Dietitian Nutrition 08/29/23 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 Therapy Asst Relationship Specialty Start Date End Date Jose Buckner MD [address] [place] [address] PCP - General Family Medicine 06/22/23 Andrew Wing MD [address] [place] [address] [place] [address] Physician Hematology/Oncology 08/14/23 Darvin Carson, SUPERVISOR [employer] REMOVAL.PAROLE AGENT [address] [place] [address] Nurse Practitioner Hematology/Oncology 08/14/23 Lidia Teran, MONET [address] [place] [address] Specialty Washcloth Folder Hematology/Oncology 08/14/[address] [place] [address] Registered Dietitian Nutrition 08/29/23 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 Therapy Asst Relationship Specialty Start Date End Date Jose Buckner MD [address] [facility] [place] [address] PCP - General Family Medicine 06/22/23 Andrew Wing MD [address] [place] [address] Physician Hematology/Oncology 08/14/23 Darvin Carson, SUPERVISOR [employer] REMOVAL.PAROLE AGENT [address] [facility] [place] [address] Nurse Practitioner Hematology/Oncology 08/14/23 Lidia Teran, MONET [address] [place] [address] Specialty Washcloth Folder Hematology/Oncology 08/14/[address] [place] [address] Registered Dietitian Nutrition 08/29/23 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 Therapy Asst Relationship Specialty Start Date End Date Jose Buckner MD [address] [facility] [place] [address] PCP - General Family Medicine 06/22/23 Andrew Wing MD [address] [place] [address] Physician Hematology/Oncology 08/14/23 Dravin Carson, SUPERVISOR [employer] REMOVAL.PAROLE AGENT [address] [facility] [place] [address] Nurse Practitioner Hematology/Oncology 08/14/23 Lidia Teran, MONET [address] [place] [address] Specialty Washcloth Folder Hematology/Oncology 08/14/[address] [place] [address] Registered Dietitian Nutrition 08/29/23 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 Therapy Asst Relationship Specialty Start Date End Date Jose Buckner MD [address] [place] [address] PCP - General Family Medicine 06/22/23 Andrew Wing MD [address] [facility] [place], [facility] Physician Hematology/Oncology 08/14/23 Darvin Carson APRN.PAROLE AGENT [address] [facility] [place], [facility] Nurse Practitioner Hematology/Oncology 08/14/23 Lidia Teran, MONET [address] [place] [address] Specialty Washcloth Folder Hematology/Oncology 08/14/[address] [place], [facility] Registered Dietitian Nutrition 08/29/23 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 Therapy Asst Relationship Specialty Start Date End Date Jose Buckner MD [address] [facility] [place] [address] PCP - General Family Medicine 06/22/23 Andrew Wing MD [address] [place] [address] Physician Hematology/Oncology 08/14/23 Darvin Carson, SUPERVISOR [employer]BE[employer]OS REMOVAL.PAROLE AGENT [address] [place] [address] Nurse Practitioner Hematology/Oncology 08/14/23 Lidia Teran, MONET [address] [place] [address] Specialty Washcloth Folder Hematology/Oncology 08/14/[address] [place] [address] Registered Dietitian Nutrition 08/29/23 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 Therapy Asst Relationship Specialty Start Date End Date Jose Buckner MD [address] [place] [address] PCP - General Family Medicine 06/22/23 Andrew Wing MD [address] [place] [address] Physician Hematology/Oncology 08/14/23 Darvin Carson, SUPERVISOR [employer]BE[employer] REMOVAL.PAROLE AGENT [address] [place] [address] Nurse Practitioner Hematology/Oncology 08/14/23 Lidia Teran, MONET [address] [place] [address] Specialty Washcloth Folder Hematology/Oncology 08/14/[address] [facility] [place] [address] Registered Dietitian Nutrition 08/29/23 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 Therapy Asst Relationship Specialty Start Date End Date Jose Buckner MD [address] [facility] [place] [address] PCP - General Family Medicine 06/22/23 Andrew Wing MD [address] [facility] [place] [address] Physician Hematology/Oncology 08/14/23 Darvin Carson, SUPERVISOR [employer] REMOVAL.PAROLE AGENT [address] [facility] [place] [address] Nurse Practitioner Hematology/Oncology 08/14/23 Lidia Teran, MONET [address] [facility] [place] [address] Specialty Washcloth Folder Hematology/Oncology 08/14/[address] [place] [address] [place] [address] Registered Dietitian Nutrition 08/29/23 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 Therapy Asst Relationship Specialty Start Date End Date Jose Buckner MD [address] [place] [address] PCP - General Family Medicine 06/22/23 Andrew Wing MD [address] [facility] [place] [address] Physician Hematology/Oncology 08/14/23 Darvin Carson, SUPERVISOR [employer]BESTOS REMOVAL.PAROLE AGENT [address] [facility] [place] [address] Nurse Practitioner Hematology/Oncology 08/14/23 Lidia Teran, RN [address] [facility] [place] [address] Specialty Washcloth Folder Hematology/Oncology 08/14/[address] [facility] [place] [address] Registered Dietitian Nutrition 08/29/23 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 Therapy Asst Relationship Specialty Start Date End Date Jose Buckner MD [address] [place] [address] PCP - General Family Medicine 06/22/23 Andrew Wing MD [address] [facility] [place] [address] Physician Hematology/Oncology 08/14/23 Darvin Carson, SUPERVISOR [employer]BESTOS REMOVAL.PAROLE AGENT [address] [facility] [place] [address] Nurse Practitioner Hematology/Oncology 08/14/23 Lidia Teran, MONET [address] [facility] [place] [address] Specialty Washcloth Folder Hematology/Oncology 08/14/[address] [facility] [place] [address] Registered Dietitian Nutrition 08/29/23 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 Therapy Asst Relationship Specialty Start Date End Date Jose Buckner MD [address] [place] [address] PCP - General Family Medicine 06/22/23 Andrew Wing MD [address] [facility] [place] [address] Physician Hematology/Oncology 08/14/23 Darvin Carson, SUPERVISOR [employer]BE[employer] REMOVAL.PAROLE AGENT [address] [facility] [place] [address] Nurse Practitioner Hematology/Oncology 08/14/23 Lidia Teran, MONET [address] [facility] [place] [address] Specialty Washcloth Folder Hematology/Oncology 08/14/[address] [facility] [place] [address] Registered Dietitian Nutrition 08/29/23 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 Therapy Asst Relationship Specialty Start Date End Date Jose Buckner MD [address] [place] [address] PCP - General Family Medicine 06/22/23 Andrew Wing MD [address] [facility] [place] [address] Physician Hematology/Oncology 08/14/23 Darvin Carson APRN.PAROLE AGENT [address] [facility] [place] [address] Nurse Practitioner Hematology/Oncology 08/14/23 Lidia Teran, MONET [address] [facility] [place] [address] Specialty Washcloth Folder Hematology/Oncology 08/14/[address] [facility] [place] [address] Registered Dietitian Nutrition 08/29/23 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 Therapy Asst Relationship Specialty Start Date End Date Jose Buckner MD [address] [place] [facility] [place] [address] PCP - General Family Medicine 06/22/23 Andrew Wing MD [address] [facility] [place] [address] Physician Hematology/Oncology 08/14/23 Darvin Carson, SUPERVISOR [employer]BE[employer]OS REMOVAL.PAROLE AGENT [address] [facility] [place] [address] Nurse Practitioner Hematology/Oncology 08/14/23 Lidia Teran, MONET [address] [facility] [place] [address] Specialty Washcloth Folder Hematology/Oncology 08/14/[address] [facility] [place] [address] Registered Dietitian Nutrition 08/29/23 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 Therapy Asst Relationship Specialty Start Date End Date Jose Buckner MD [address] [place] [address] PCP - General Family Medicine 06/22/23 Andrew Wing MD [address] [facility] [place] [address] Physician Hematology/Oncology 08/14/23 Darvin Carson, SUPERVISOR ASBESTOS REMOVAL.PAROLE AGENT [address] [facility] [place] [place] [address] Nurse Practitioner Hematology/Oncology 08/14/23 Lidia Teran, MONET [address] [facility] [place] [address] Specialty Washcloth Folder Hematology/Oncology 08/14/[address] [facility] [place] [address] Registered Dietitian Nutrition 08/29/23 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 Therapy Asst Relationship Specialty Start Date End Date Jose Buckner MD [address] [place] [address] PCP - General Family Medicine 06/22/23 Andrew Wing MD [address] [facility] [place] [address] Physician Hematology/Oncology 08/14/23 Darvin Carson, SUPERVISOR [employer]BE[employer]OS REMOVAL.PAROLE AGENT [address] [facility] [place] [address] Nurse Practitioner Hematology/Oncology 08/14/23 Lidia Teran, MONET [address] [facility] [place] [address] Specialty Washcloth Folder Hematology/Oncology 08/14/[address] [facility] [place] [address] Registered Dietitian Nutrition 08/29/23 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 Therapy Asst Relationship Specialty Start Date End Date Jose Buckner MD [address] [place] [address] PCP - General Family Medicine 06/22/23 Andrew Wing MD [address] [facility] [place] [address] Physician Hematology/Oncology 08/14/23 Darvin Carson, SUPERVISOR [employer]BESTOS REMOVAL.PAROLE AGENT [address] [facility] [place] [address] Nurse Practitioner Hematology/Oncology 08/14/23 Lidia Teran, MONET [address] [facility] [place] [address] Specialty Washcloth Folder Hematology/Oncology 08/14/[address] [facility] [place] [address] Registered Dietitian Nutrition 08/29/23 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 Therapy Asst Relationship Specialty Start Date End Date Jose Buckner MD [address] [facility] [place] [address] PCP - General Family Medicine 06/22/23 Andrew Wing MD [address] [facility] [place] [address] Physician Hematology/Oncology 08/14/23 Darvin Carson APRN.PAROLE AGENT [address] [facility] [place] [address] Nurse Practitioner Hematology/Oncology 08/14/23 Lidia Teran, MONET [address] [facility] [place] [address] Specialty Washcloth Folder Hematology/Oncology 08/14/[address] [place] [address] [place] [address] Registered Dietitian Nutrition 08/29/23 Source Comments (unrecognize d section and content) In the event this informatio n is protected by the [facility] Confidentiality of Alcohol and Drug Abuse Patient Records regulations: The Federal rules restrict any use of the information to criminally investigate or prosecute any alcohol or drug abuse patient.[facility] the event this information is protected by the Federal Confidentiality of Alcohol and Drug Abuse Patient Records regulations: The Federal rules restrict any use of the information to criminally investigate or prosecute any alcohol or drug abuse patient.[facility] the event this information is protected by the Federal Confidentiality of Alcohol and Drug Abuse Patient Records regulations: The Federal rules restrict any use of the information to criminally investigate or prosecute any alcohol or drug abuse patient.[facility] the event this information is protected by the Federal Confidentiality of Alcohol and Drug Abuse Patient Records regulations: The Federal rules restrict any use of the information to criminally investigate or prosecute any alcohol or drug abuse patient.[facility]In the event this information is protected by the Federal Confidentiality of Alcohol and Drug Abuse Patient Records regulations: The Federal rules restrict any use of the information to criminally investigate or prosecute any alcohol or drug abuse patient.[facility] the event this information is protected by the Federal Confidentiality of Alcohol and Drug Abuse Patient Records regulations: The Federal rules restrict any use of the information to criminally investigate or prosecute any alcohol or drug abuse patient.[facility] the event this information is protected by the Federal Confidentiality of Alcohol and Drug Abuse Patient Records regulations: The Federal rules restrict any use of the information to criminally investigate or prosecute any alcohol or drug abuse patient.[facility]In the event this information is protected by the Federal Confidentiality of Alcohol and Drug Abuse Patient Records regulations: The Federal rules restrict any use of the information to criminally investigate or prosecute any alcohol or drug abuse patient.[facility]In the event this information is protected by the Federal Confidentiality of Alcohol and Drug Abuse Patient Records regulations: The Federal rules restrict any use of the information to criminally investigate or prosecute any alcohol or drug abuse patient.[facility] the event this information is protected by the Federal Confidentiality of Alcohol and Drug Abuse Patient Records regulations: The Federal rules restrict any use of the information to criminally investigate or prosecute any alcohol or drug abuse patient.[facility] HospitalIn the event this information is protected by the Federal Confidentiality of Alcohol and Drug Abuse Patient Records regulations: The Federal rules restrict any use of the information to criminally investigate or prosecute any alcohol or drug abuse patient.[facility] HospitalIn the event this information is protected by the Federal Confidentiality of Alcohol and Drug Abuse Patient Records regulations: The Federal rules restrict any use of the information to criminally investigate or prosecute any alcohol or drug abuse patient.[facility] HospitalIn the event this information is protected by the Federal Confidentiality of Alcohol and Drug Abuse Patient Records regulations: The Federal rules restrict any use of the information to criminally investigate or prosecute any alcohol or drug abuse patient.[facility] HospitalIn the event this information is protected by the Federal Confidentiality of Alcohol and Drug Abuse Patient Records regulations: The Federal rules restrict any use of the information to criminally investigate or prosecute any alcohol or drug abuse patient.[facility] HospitalIn the event this information is protected by the Federal Confidentiality of Alcohol and Drug Abuse Patient Records regulations: The Federal rules restrict any use of the information to criminally investigate or prosecute any alcohol or drug abuse patient.[facility] HospitalIn the event this information is protected by the Federal Confidentiality of Alcohol and Drug Abuse Patient Records regulations: The Federal rules restrict any use of the information to criminally investigate or prosecute any alcohol or drug abuse patient.[facility] HospitalIn the event this information is protected by the Federal Confidentiality of Alcohol and Drug Abuse Patient Records regulations: The Federal rules restrict any use of the information to criminally investigate or prosecute any alcohol or drug abuse patient.[facility] HospitalIn the event this information is protected by the Federal Confidentiality of Alcohol and Drug Abuse Patient Records regulations: The Federal rules restrict any use of the information to criminally investigate or prosecute any alcohol or drug abuse patient.[facility] HospitalIn the event this information is protected by the Federal Confidentiality of Alcohol and Drug Abuse Patient Records regulations: The Federal rules restrict any use of the information to criminally investigate or prosecute any alcohol or drug abuse patient.[facility] HospitalIn the event this information is protected by the Federal Confidentiality of Alcohol and Drug Abuse Patient Records regulations: The Federal rules restrict any use of the information to criminally investigate or prosecute any alcohol or drug abuse patient.[facility] HospitalIn the event this information is protected by the Federal Confidentiality of Alcohol and Drug Abuse Patient Records regulations: The Federal rules restrict any use of the information to criminally investigate or prosecute any alcohol or drug abuse patient.[facility] HospitalIn the event this information is protected by the Federal Confidentiality of Alcohol and Drug Abuse Patient Records regulations: The Federal rules restrict any use of the information to criminally investigate or prosecute any alcohol or drug abuse patient.[facility] HospitalIn the event this information is protected by the Federal Confidentiality of Alcohol and Drug Abuse Patient Records regulations: The Federal rules restrict any use of the information to criminally investigate or prosecute any alcohol or drug abuse patient.[facility] HospitalIn the event this information is protected by the Federal Confidentiality of Alcohol and Drug Abuse Patient Records regulations: The Federal rules restrict any use of the information to criminally investigate or prosecute any alcohol or drug abuse patient.[facility]In the event this information is protected by the Federal Confidentiality of Alcohol and Drug Abuse Patient Records regulations: The Federal rules restrict any use of the information to criminally investigate or prosecute any alcohol or drug abuse patient.[facility] HospitalIn the event this information is protected by the Federal Confidentiality of Alcohol and Drug Abuse Patient Records regulations: The Federal rules restrict any use of the information to criminally investigate or prosecute any alcohol or drug abuse patient.[facility] HospitalIn the event this information is protected by the Federal Confidentiality of Alcohol and Drug Abuse Patient Records regulations: The Federal rules restrict any use of the information to criminally investigate or prosecute any alcohol or drug abuse patient.[facility] HospitalIn the event this information is protected by the Federal Confidentiality of Alcohol and Drug Abuse Patient Records regulations: The Federal rules restrict any use of the information to criminally investigate or prosecute any alcohol or drug abuse patient.[facility] HospitalIn the event this information is protected by the Federal Confidentiality of Alcohol and Drug Abuse Patient Records regulations: The Federal rules restrict any use of the information to criminally investigate or prosecute any alcohol or drug abuse patient.[facility] HospitalIn the event this information is protected by the Federal Confidentiality of Alcohol and Drug Abuse Patient Records regulations: The Federal rules restrict any use of the information to criminally investigate or prosecute any alcohol or drug abuse patient.[facility] HospitalIn the event this information is protected by the Federal Confidentiality of Alcohol and Drug Abuse Patient Records regulations: The Federal rules restrict any use of the information to criminally investigate or prosecute any alcohol or drug abuse patient.[facility] HospitalIn the event this information is protected by the Federal Confidentiality of Alcohol and Drug Abuse Patient Records regulations: The Federal rules restrict any use of the information to criminally investigate or prosecute any alcohol or drug abuse patient.[facility] HospitalIn the event this information is protected by the Federal Confidentiality of Alcohol and Drug Abuse Patient Records regulations: The Federal rules restrict any use of the information to criminally investigate or prosecute any alcohol or drug abuse patient.[facility] HospitalIn the event this information is protected by the Federal Confidentiality of Alcohol and Drug Abuse Patient Records regulations: The Federal rules restrict any use of the information to criminally investigate or prosecute any alcohol or drug abuse patient.[facility] HospitalIn the event this information is protected by the Federal Confidentiality of Alcohol and Drug Abuse Patient Records regulations: The Federal rules restrict any use of the information to criminally investigate or prosecute any alcohol or drug abuse patient.[facility] HospitalIn the event this information is protected by the Federal Confidentiality of Alcohol and Drug Abuse Patient Records regulations: The Federal rules restrict any use of the information to criminally investigate or prosecute any alcohol or drug abuse patient.[facility] HospitalIn the event this information is protected by the Federal Confidentiality of Alcohol and Drug Abuse Patient Records regulations: The Federal rules restrict any use of the information to criminally investigate or prosecute any alcohol or drug abuse patient.[facility] HospitalIn the event this information is protected by the Federal Confidentiality of Alcohol and Drug Abuse Patient Records regulations: The Federal rules restrict any use of the information to criminally investigate or prosecute any alcohol or drug abuse patient.[facility] HospitalIn the event this information is protected by the Federal Confidentiality of Alcohol and Drug Abuse Patient Records regulations: The Federal rules restrict any use of the information to criminally investigate or prosecute any alcohol or drug abuse patient.[facility] HospitalIn the event this information is protected by the Federal Confidentiality of Alcohol and Drug Abuse Patient Records regulations: The Federal rules restrict any use of the information to criminally investigate or prosecute any alcohol or drug abuse patient.[facility] Reason for Visit (unrecogniz ed section and content) Reason Comments Washcloth Folder - Other Surgery michael geller Reason Comments Patient Question Reason Comments Results Reason Comments Sigmoid Colon Cancer New patient consult Specialty Diagnoses / Procedures Referred By Contac t Referred To Contact Oncology Diagnoses Malignant neoplasm of sigmoid colon (HCC) Procedures CONSULT TO ONCOLOGY OFFICE/OUTPATIENT NEW HIGH MDM 60-74 [place] [address] [place] [id number] Referral ID Status Reason Start Date Expiration Date V isits Requested Visits Authorized [id number] Closed PCP Requested Referral 06/25/2023 06/24/2024 1 1 Reason Comments Appointment Reason Comments Referral Information Port Placement Reason Comments Consult Reason Comments PRE BRONCH CONSULT Specialty Diagnoses / Procedures [facility] Diagnoses Lung nodule Procedures CT CHEST WO IVCON DIAGNOSTIC COMPUTED TOMOGRAPHY THORAX W/O CNTRSDao Aguiar MD [address] [place] [id number] [facility] [place] [address] Referral ID Status Reason Start Date Expiration Date V isits Requested Visits Authorized [id number] Closed Auto-Generate d Referral 08/01/2023 08/31/2023 1 1 Reason Comments Care Coordination Antiemetics Reason Comments Colon Cancer Specialty Diagnoses / Procedures [facility] Referred To Contact Diagnoses Malignant neoplasm of sigmoid colon (HCC) Procedures CONSULT TO MEDICAL GENETICS - CANCER MEDICAL GENETICS COUNSELING EACH 30 MINUTES Andrew Wing MD [address] [place] [address] [place] [address] [facility] [place] [address] [place] [address] Referral ID Status Reason Start Date Expiration Date Visits Requested Visits Authorized [id number] Pending Review PCP Requested Referral Auto-Generate d Referral 07/02/2024 1 1 Reason Comments First Time Treatment Education Oxaliplat in, Leucovorin, & 5FU Reason Comments Care Coordination Pt Update Reason Comments Nutrition Assessment Specialty Diagnoses / Procedures [facility] Referred To Contact Diagnoses Malignant neoplasm of sigmoid colon (HCC) Procedures LEUCOVORIN CALCIUM INJECTION PALONOSETRON HCL OXALIPLATIN FLUOROURACIL INJECTION Andrew Wing MD [address] [place] [address] [place] [address] [address] [place] [address] Referral ID Status Reason Start Date Expiration Date Visits Requested Visits Authorized [id number] Waiting for Online Response Patient Cleared - Admin/Chair man/Directo r advise to proceed or did not respond 3 01/08/2024 99 0 Reason Comments Care Coordination Insurance Denial Reason Comments Care Coordination Productive Cough Specialty Diagnoses / Procedures Referred By Contac t Referred To Contact Diagnoses Malignant neoplasm of sigmoid colon (HCC) Procedures LEUCOVORIN CALCIUM INJECTION PALONOSETRON HCL OXALIPLATIN FLUOROURACIL INJECTION INJECTION, Andrew Licea MD [address] [place] [address] [place] [address] Jaren Treat [address] [place] [id number] Referral ID Status Reason Start Date Expiration Date Visits Requested Visits Authorized [id number] Waiting for Response Patient Cleared - Admin/Chair man/Directo r advise to proceed or did not respond 3 01/08/2024 99 0 Reason Comments Colon Cancer 2 week follow up Reason Comments Colon Cancer OTV Referral ID Status Reason Start Date Expiration Date Visits Requested Visits Authorized [id number] Authorized Patient Cleared - Admin/Chairm an/Director advise to proceed or did not respond 3 01/08/2024 13 13 Reason Comments Opened In Error Reason Comments Care Coordination Surgery Update; Appo intments Inactive Administered Medications - up to 3 most recent administrations Administered Medications (un recognized section and content) Medication Order MAR Action Action Date Dose Rate Site NaCl 0.9% iv infusion 1,000 mL/hr (rounded to 999 mL/hr), INTRAVENOUS, Administer over 1 Hours, ONCE, 1 dose, On Sun10/12/23 at 1130 New Bag/Syringe/Eloisa le 10/12/2023 10:58 AM EST 1,000 mL/hr 999 mL/hr pegfilgrastim-jmdb 6 mg injection (FULPHILA) 6 mg, SUBCUTANEOUS, ONCE, 1 dose, On Sun10/12/23 at 1100, Refrigerate - Protect From Light - Do Not Shake - Allow prefilled syringe to reach room temperature for at least 30 minutes prior to injection. Given 10/12/2023 11:56 AM EST 6 mg Arm, Right Inactive Administered Medications - up to 3 most recent administrations Medication Order MAR Action Action Date Dose Rate Site dexAMETHasone 10 mg in NaCl 0.9% 50 mL (DECADRON) 10 mg, INTRAVENOUS, ONCE, 1 dose, On Sun10/24/23 at 1000, Refrigerate. New Bag/Syringe/Bottle 10/24/2023 10:19 AM EST 10 mg fluorouracil (ADRUCIL) 5,000 mg in NaCl 0.9% 102 mL in empty bag 5,000 mg (rounded from 5,184 mg = 2,400 mg/m2 2.16 m2 Treatment Plan BSA from Recorded weight), INTRAVENOUS, at 2.2 mL/hr, Administer over 46 Hours, ONCE, 1 dose, On Sun10/24/23 at 1000, EXP:10/31/2023 1000 RT Hazardous Chemotherapy Drug: Use appropriate PPE. Protect from Light. Apheresis and/or Portable Pump 10/24/2023 1:05 PM EST 5,000 mg 2.2 mL/hr iron sucrose iv piggyback 200 mg in NaCl 0.9% 100 mL (VENOFER) 200 mg, INTRAVENOUS, at 400 mL/hr, Administer over 15 Minutes, ONCE, 1 dose, On Sun10/24/23 at 0930, Please conduct a 30 minute post dose observation. Refrigerate New Bag/Syringe/Bottle 10/24/2023 9:51 AM EST 200 mg 400 mL/hr leucovorin 864 mg in D5W 101.2 mL 864 mg (400 mg/m2 2.16 m2 Treatment Plan BSA from Recorded weight), INTRAVENOUS, Administer over 2 Hours, ONCE, 1 dose, On Sun10/24/23 at 1000, APPROXIMATE TOTAL VOLUME ml; PROTECT FROM LIGHT ADMINISTER CONCURRENTLY WITH OXALIPLATIN. EXP: 10/25/2023 1600 RT REFRIGERATE New Bag/Syringe/Bottle 10/24/2023 10:46 AM EST 864 mg oxaliplatin 183.6 mg in D5W 576.72 mL (ELOXATIN) 183.6 mg (85 mg/m2 2.16 m2 Treatment Plan BSA from Recorded weight), INTRAVENOUS, Administer over 2 Hours, ONCE, 1 dose, On Sun10/24/23 at 1000, Administer concurrently with leucovorin. Approx Total Volume: mL EXP:10/25/2023 1600 RT Hazardous Chemotherapy Drug: Use appropriate PPE. Antineoplastic Irritant with Vesicant Potential. Flush line with D5W before and after administration. New Bag/Syringe/Bottle 10/24/2023 10:46 AM EST 183.6 mg palonosetron 0.25 mg injection (ALOXI) 0.25 mg, INTRAVENOUS, ONCE, 1 dose, On Sun10/24/23 at 1000, Flush IV line with NS prior to and following administration. Given 10/24/2023 10:16 AM EST 0.25 mg Inactive Administered Medications - up to 3 most recent administrations Medication Order MAR Action Action Date Dose Rate Site NaCl 0.9% iv infusion 1,000 mL/hr (rounded to 999 mL/hr), INTRAVENOUS, Administer over 1 Hours, ONCE, 1 dose, On Sun10/26/23 at 1030 New Bag/Syringe/Bot tle 10/26/2023 10:38 AM EST 1,000 mL/hr 999 mL/hr pegfilgrastim-jmdb 6 mg injection (FULPHILA) 6 mg, SUBCUTANEOUS, ONCE, 1 dose, On Sun10/26/23 at 1030, Refrigerate - Protect From Light - Do Not Shake - Allow prefilled syringe to reach room temperature for at least 30 minutes prior to injection. Given 10/26/2023 11:11 AM EST 6 mg Arm, Right sodium chloride 0.9 % (flush) 10-20 mL (BD POSIFLUSH) 10-20 mL, INTRAVENOUS, NEEDED, Starting on Sun10/26/23 at 1029, Until Sun10/26/23 at 1353, See Administration Instructions, If no IVAD access, may place IV if needed for labs or possible treatment. Flush 10-20ml on IV start and as needed. D5W or LR may be used in place of NS for medication that are incompatible (i.e. with oxaliplatin). Given 10/26/2023 11:42 AM EST 20 mL Inactive Administered Medications - up to 3 most recent administrations Medication Order MAR Action Action Date Dose Rate Site dexAMETHasone 10 mg in NaCl 0.9% 50 mL (DECADRON) 10 mg, INTRAVENOUS, ONCE, 1 dose, On Sun11/21/23 at 1000, Refrigerate. New Bag/Syringe/Bottle 11/21/2023 10:15 AM EDT 10 mg fluorouracil (ADRUCIL) 4,000 mg in NaCl 0.9% 102 mL in empty bag 4,000 mg (rounded from 4,320 mg = 2,000 mg/m2 2.16 m2 Treatment Plan BSA from Recorded weight), INTRAVENOUS, at 2.2 mL/hr, Administer over 46 Hours, ONCE, 1 dose, On Sun11/21/23 at 1030, EXP: 1030 11/28/23 Hazardous Chemotherapy Drug: Use appropriate PPE. Protect from Light. Apheresis and/or Portable Pump 11/21/2023 1:15 PM EDT 4,000 mg 2.2 mL/hr leucovorin 864 mg in D5W 101.2 mL 864 mg (400 mg/m2 2.16 m2 Treatment Plan BSA from Recorded weight), INTRAVENOUS, Administer over 2 Hours, ONCE, 1 dose, On Sun11/21/23 at 1030, APPROXIMATE TOTAL VOLUME ml; PROTECT FROM LIGHT ADMINISTER CONCURRENTLY WITH OXALIPLATIN. EXP 0230 11/23/23 REFRIGERATE New Bag/Syringe/Bottle 11/21/2023 11:04 AM EDT 864 mg oxaliplatin 129.6 mg in D5W 565.92 mL (ELOXATIN) 129.6 mg (60 mg/m2 2.16 m2 Treatment Plan BSA from Recorded weight), INTRAVENOUS, Administer over 2 Hours, ONCE, 1 dose, On Sun11/21/23 at 1030, Administer concurrently with leucovorin. Approx Total Volume: mL EXP: 1633 11/21/23 Hazardous Chemotherapy Drug: Use appropriate PPE. Antineoplastic Irritant with Vesicant Potential. Flush line with D5W before and after administration. New Bag/Syringe/Bottle 11/21/2023 11:04 AM EDT 129.6 mg palonosetron 0.25 mg injection (ALOXI) 0.25 mg, INTRAVENOUS, ONCE, 1 dose, On Sun11/21/23 at 1000, Flush IV line with NS prior to and following administration. Given 11/21/2023 10:13 AM EDT 0.25 mg Inactive Administered Medications - up to 3 most recent administrations Medication Order MAR Action Action Date Dose Rate Site NaCl 0.9% iv infusion 1,000 mL/hr (rounded to 999 mL/hr), INTRAVENOUS, Administer over 1 Hours, ONCE, 1 dose, On Sun11/23/23 at 1130 New Bag/Syringe/Eloisa le 11/23/2023 11:21 AM EDT 1,000 mL/hr 999 mL/hr pegfilgrastim-jmdb 6 mg injection (FULPHILA) 6 mg, SUBCUTANEOUS, ONCE, 1 dose, On Sun11/23/23 at 1100, Refrigerate - Protect From Light - Do Not Shake - Allow prefilled syringe to reach room temperature for at least 30 minutes prior to injection. Given 11/23/2023 11:19 AM EDT 6 mg Arm, Right FOR RECORDS PERTAINING TO PATIENTS WHO ARE OR HAVE BEEN ENROLLED IN A CHEMICAL DEPENDENCY/SUBSTANCEABUSE PROGRAM, SOME INFORMATION MAY BE OMITTED. This clinical summary was aggregated from multiple sources. Caution should be exercised in using it in the provision of clinical care. This summary normalizes information from multiple sources, and as a consequence, information in this document may materially change the coding, format and clinical context of patient data. In addition, data may be omitted in some cases. CLINICAL DECISIONS SHOULD BE BASED ON THE PRIMARY CLINICAL RECORDS. [facility]. provides no warranty or guarantee of the accuracy or completeness of information in this document.
== END 2023-12-21 07:26 | disposition home or self-care (01) ==
LOC: MAMMO 07:25
PROVIDERS: PCP Family Medicine; Visit Provider Family Medicine
DX: Z12.31 Encounter for screening mammogram for malignant neoplasm of breast (principal); Z80.3 Family history of malignant neoplasm of breast
CPT/HCPCS: 77063; 77067

== ENCOUNTER 2024-09-19 08:33 | Outpatient (OUT) | payer MEDICARE, SELFPAY ==
[2024-09-19 09:22] LABS: Hematocrit 38.5 % (36.0-48.0); Hemoglobin 13.1 g/dL (12.0-16.0); Mean Corpuscular Hemoglobin 29.7 pg (26.7-34.0); Mean Corpuscular Volume 87.3 fL (81.0-99.0); Mean Platelet Volume 11.4 fL (9.5-13.5); Platelet Count 123 10^3/uL (150-450); Red Blood Count 4.41 10^6/uL (4.20-5.40); Red Cell Distribution Width 13.2 % (11.0-15.0); White Blood Count 5.8 10^3/uL (4.0-11.0)
[2024-09-19 09:50] LABS: Monocytes Absolute Manual 0.23 10^3/uL (0.30-0.80); Segmented Neut Absolute Manual 2.66 10^3/uL (1.4-6.5)
[2024-09-19 10:11] LABS: Estimated Average Glucose 108 mg/dL; Glycohemoglobin A1C 5.4 % (4.5-6.2)
[2024-09-19 10:43] LABS: Chol HDL Ratio 4.7; Cholesterol 215 mg/dL (<=200); HDL Cholesterol 46 mg/dL (40-60); Triglycerides 180 mg/dL (<=150)
== END 2024-09-19 08:34 | disposition home or self-care (01) ==
LOC: LAB 08:40
PROVIDERS: PCP Family Medicine; Visit Provider Family Medicine
DX: I11.9 Hypertensive heart disease without heart failure (principal)
CPT/HCPCS: 36415; 80053; 80061; 83036; 83540; 84436; 84443; 84481; 85007; 85027

== ENCOUNTER 2024-09-19 12:44 | Outpatient (REF) | payer MEDICARE, SELFPAY ==
[2024-09-22 12:02] LABS: Alanine Aminotransferase 30 U/L (14-59); Albumin Globulin Ratio 1.2; Alkaline Phosphatase 64 U/L (46-116); Anion Gap 17.4; Aspartate Amino Transferase 21 U/L (15-37); Bilirubin Total 0.2 mg/dL (0.2-1.0); Calcium 9.2 mg/dL (8.5-10.1); Carbon Dioxide 24.2 mmol/L (21.0-32.0); Chloride 105 mmol/L (98-107); Estimated GFR (African America 59 (>=60 mL/min/1.73m^2); Estimated GFR (Non-African Ame 48 (>=60 mL/min/1.73m^2); Globulin 3.3 g/dL; Glucose 109 mg/dL (74-106); Potassium 4.6 mmol/L (3.5-5.1); Sodium 142 mmol/L (136-145); Total Protein 7.3 g/dL (6.4-8.2)
== END 2024-09-19 12:45 | disposition home or self-care (01) ==
LOC: LAB 12:44
PROVIDERS: PCP Family Medicine; Visit Provider Nurse Practitioner
DX: I11.9 Hypertensive heart disease without heart failure (principal)
CPT/HCPCS: 36415; 80053

== ENCOUNTER 2024-09-23 09:18 | Outpatient (OUT) | payer MEDICARE, SELFPAY ==
[2024-09-23 10:07] LABS: Alanine Aminotransferase 30 U/L (14-59); Albumin Globulin Ratio 1.1; Albumin Level 3.8 g/dL (3.4-5.0); Alkaline Phosphatase 66 U/L (46-116); Aspartate Amino Transferase 22 U/L (15-37); Bilirubin Total 0.4 mg/dL (0.2-1.0); Carbon Dioxide 31.1 mmol/L (21.0-32.0); Chloride 105 mmol/L (98-107); Estimated GFR (African America 57 (>=60 mL/min/1.73m^2); Estimated GFR (Non-African Ame 47 (>=60 mL/min/1.73m^2); Globulin 3.4 g/dL; Glucose 116 mg/dL (74-106); Potassium 4.1 mmol/L (3.5-5.1); Sodium 145 mmol/L (136-145); Total Protein 7.2 g/dL (6.4-8.2)
== END 2024-09-23 09:19 | disposition home or self-care (01) ==
LOC: LAB 09:21
PROVIDERS: PCP Family Medicine; Visit Provider Family Medicine
DX: R89.9 Unspecified abnormal finding in specimens from other organs, systems and tissues (principal); R79.89 Other specified abnormal findings of blood chemistry; D69.1 Qualitative platelet defects; E78.00 Pure hypercholesterolemia, unspecified
CPT/HCPCS: 36415; 80053

== ENCOUNTER 2024-12-22 08:22 | Outpatient (OUT) | payer MEDICARE, OTHER, SELFPAY ==
--- NOTE | 2024-12-22 08:25 | MM_ITS ---
Patient Name: PHAM CARRANZA MR#: [id number] : 1960 Exam Date: 12/22/2024 Ordering Doctor: DR Justin Mcgowan . RADIOLOGY REPORT PROCEDURE: MM TOMOSYNTHESIS SCREENING BI COMPARISON: MM TOMOSYNTHESIS SCREENING BI, 12/21/2023. MG MAMM SCREEN 3D [place] CAD, 11/29/2022. MG MAMM SCREEN 3D [place] CAD, 11/23/2021. MG MAMM [place] SCRN W CAD DIG, 07/13/1998. INDICATIONS: Screening Calculator Name NCI Breast Cancer Risk Assessment Tool 5 Year Breast Cancer Risk 1.80% Lifetime Breast Cancer Risk 6.90% Personal Breast Cancer No Personal Ovarian Cancer No Treatments Chemo and Surgery Family Cancers Brother with colon cancer at age 60; Aunt-paternal with breast cancer at age ~75. LOCATION: [facility] BREAST COMPOSITION: The breasts are almost entirely fatty. FINDINGS: DIAGNOSTIC CATEGORY 1--NEGATIVE. RIGHT BREAST: No significant suspicious finding. LEFT BREAST: No significant suspicious finding. RECOMMENDATIONS: ROUTINE MAMMOGRAM AND CLINICAL EVALUATION IN 12 MONTHS. PLEASE NOTE: A NORMAL MAMMOGRAM DOES NOT EXCLUDE THE POSSIBILITY OF BREAST CANCER. A CLINICALLY SUSPICIOUS PALPABLE LUMP SHOULD BE BIOPSIED. Dictated by: Dao Wilcox DO on 12/22/2024 at 15:46 Approved by: Dao Wilcox DO on 12/22/2024 at 15:50
== END 2024-12-22 08:23 | disposition home or self-care (01) ==
LOC: MAMMO 08:22
PROVIDERS: PCP Family Medicine; Visit Provider Family Medicine
DX: Z12.31 Encounter for screening mammogram for malignant neoplasm of breast (principal); Z80.3 Family history of malignant neoplasm of breast; Z80.0 Family history of malignant neoplasm of digestive organs
CPT/HCPCS: 77063; 77067

== ENCOUNTER 2025-06-22 09:05 | Outpatient (OUT) | payer MEDICARE, OTHER, SELFPAY ==
--- OUTSIDE RECORDS SUMMARY | 2025-06-22 09:13 | XMS_ITS | Encounter Summary ---
Author Organization [facility] Address [address] [place] [address] Care Team Providers Care Grinding Room Inspector Name Role Phone Justin Mcgowan MD Primary Care Provider + Andrew Dean MD Unavailable [phone] Shasta Saravia APRN.ICE GUARD INSPECTOR Unavailable [phone] Penelope Teran RN Unavailable [phone] Unavailable [phone] Source Comments In the event this information is protected by the Federal Confidentiality of Alcohol and Drug AbusePatient Records regulations: The Federal rules restrict any use of the information to criminally investigate or prosecute any alcohol or drug abuse patient.[facility] Encounter Details Date Type Department Care Team (Late st Contact Info) Description 06/22/2023 Patient Msg Pre Anesthesia [address] [place], [place] [id number] Provider, [facility] pacc Social History Tobacco Use Types Packs/Day Years Used Date Smoking Tobacco: Never Assessed Area Deprivation Index Answer Date Benito rded National Score (1-100), lower number is lower ri sk 61 06/05/2023 State Score (1-10), lower number is lower risk 4 06/05/2023 Data from: https://www.neighborhoodatlas.[facility]/. Last address used for calculation [address] 06/05/2023 Comments No Sex and Gender Information Value Date Recorded Sex Assigned at Not on file Legal Sex Female 10:42 AM EDT Gender Identity Not on file Sexual Orientation Not on file documented as of this encounter Plan of Treatment Upcoming Encounters Date Type Department Care Team (Latest Contact Info) Description 08/20/2025 8:45 AM EST Appointment Radiology Pet CT [address] [place] [address] CT CAP W IV port 08/27/2025 1:40 PM EST Visit (SP) Office Hematology/Oncology [facility] [place] [address] Andrew Dean MD [address] [place] [address] [place] [address] 6 month follow up after CT scans documented as of this encounter Visit Diagnoses Not on filedocumented in this encounter Care Teams Grinding Room Inspector Relationship Specialty Start Date End Date Justin Mcgowan MD [address] [place] [address] PCP - General Family Medicine 06/22/23 Andrew Dean MD [address] [place] [address] [place] [address] Physician Hematology/Oncology 08/14/23 Shasta Saravia APRN.ICE GUARD INSPECTOR [facility] [place] [address] Nurse Practitioner Hematology/Oncology 08/14/23 Penelope Teran, MONET [address] [place] [address] [place] [address] Specialty Biomedical Engineering Supervisor Hematology/Oncology 08/14/[address] [place] [address] Registered Dietitian Nutrition 08/29/23 documented as of this encounter
--- OUTSIDE RECORDS SUMMARY | 2025-06-22 09:13 | XMS_ITS | Encounter Summary ---
Author Organization [facility] Address [address] [place] [address] Care Team Providers Care Sheet Rocker Name Role Phone Justin Mcgowan MD Primary Care Provider + Andrew Dean MD Unavailable [phone] Shasta Saravia APRN.PROFESSOR OF POLITICAL SCIENCE Unavailable [phone] Penelope Teran RN Unavailable [phone] Unavailable [phone] Source Comments In the event this information is protected by the Federal Confidentiality of Alcohol and Drug AbusePatient Records regulations: The Federal rules restrict any use of the information to criminally investigate or prosecute any alcohol or drug abuse patient.[facility] Encounter Details Date Type Department Care Team (Late st Contact Info) Description 12/20/2023 Get Medical Advice COLORECTAL SURGERY [address] [place], [place] [id number] [place] [address] [place], [place] [id number] Physican statement Social History Tobacco Use Types Packs/Day Years Used Date Smoking Tobacco: Never Smokeless Tobacco: Never Alcohol Use Standard Drinks/Week Comments Yes 0 (1 standard drink = 0.6 oz pure alcohol) 2 drinks a couple times a month PHQ-2 Answer Date Recorded PHQ-2 score 0 07/18/2023 Area Deprivation Index Answer Date Benito rded National Score (1-100), lower number is lower ri sk 61 06/05/2023 State Score (1-10), lower number is lower risk 4 06/05/2023 Data from: https://www.neighborhoodatlas.[facility]/. Last address used for calculation [address] [facility] 06/05/2023 Comments No Sex and Gender Information Value Date Recorded Sex Assigned at Not on file Legal Sex Female 10:42 AM EDT Gender Identity Not on file Sexual Orientation Not on file documented as of this encounter Plan of Treatment Upcoming Encounters Date Type Department Care Team (Latest Contact Info) Description 08/20/2025 8:45 AM EST Appointment Radiology Pet CT [address] [place] [address] [place] [address] CT CAP W IV port 08/27/2025 1:40 PM EST Visit (SP) Office Hematology/Oncology [address] [place] [address] [place] [address] Andrew Dean MD [address] [place] [address] [place] [address] 6 month follow up after CT scans documented as of this encounter Visit Diagnoses Not on filedocumented in this encounter Care Teams Sheet Rocker Relationship Specialty Start Date End Date Justin Mcgowan MD [address] [place] [address] PCP - General Family Medicine 06/22/23 Andrew Dean MD [facility] [place] [address] Physician Hematology/Oncology 08/14/23 Shasta Saravia APRN.PROFESSOR OF POLITICAL SCIENCE [address] [place] [address] [place] [address] Nurse Practitioner Hematology/Oncology 08/14/23 Penelope Teran, RN [address] [place] [address] [place] [address] Specialty Entrepreneur Hematology/Oncology 08/14/[address] [place] [address] [place] [address] Registered Dietitian Nutrition 08/29/23 documented as of this encounter
--- OUTSIDE RECORDS SUMMARY | 2025-06-22 09:13 | XMS_ITS | Clinical Summary ---
Author Organization [facility] Address [address] [place] [address] Care Team Providers Care Vehicle Modification Technician Name Role Phone Justin Mcgowan MD Primary Care Provider + Andrew Dean MD Unavailable [phone] CABINET BUILDER.DIKE SUPERVISOR Unavailable [phone] Penelope Teran RN Unavailable [phone] Unavailable [phone] Allergies Active Allergy Reactions Criticality Noted Date Comments Zoaxvnb-Gab-Lkd Reductase Inhibitors Other: See Comments,Unknown,Myalgia 06/18/2022 myalgias Medications levothyroxine (SYNTHROID) 50 mcg tablet Take 50 mcg by mouth once daily. 05/04/2023 Active Pramoxine-Welch cortisone (ANALPRAM-HC) 1-1 % rectal cream 1 g by RECTAL route two times a day as needed (rectal discomfort). 05/04/2023 Active omega 0-ybj-ynu-fish oil 120-180-500 mg cap Take 500 mg by mouth once daily. 02/18/2020 Active iron glycinate,polys acch cmplx (IRON BIS GLYCIN-FE P-SAC CMPLX ORAL) Take 20 mg by mouth once daily. Active collagen, hydrolysate, bovine, (COLLAGEN, HYDR, BOVINE,, BULK,) 100 % powd Take 1 Dose by mouth once daily. Active ibuprofen (MOTRIN) 200 mg tablet Take 2 tablets by mouth every 6 hours. 01/03/2024 Active Active Problems Problem Noted Date Diagnosed Date Ileostomy in place 02/22/2024 Irritant contact dermatitis associated with feca l stoma 01/19/2024 Skin breakdown 01/17/2024 Postoperative pain 01/03/2024 Ileostomy present 12/29/2023 Colon cancer 12/28/2023 Iron deficiency anemia 09/12/2023 Assessment & Plan (12/19/2023 7:40 AM EDT): Assessment: managed with daily iron, stable S/p iron infusions Follows up with hematology Hemoglobin (g/dL) Date Value 12/05/2023 12.2 Hematocrit (%) Date Value 12/05/2023 37.3 WBC (k/uL) Date Value 12/05/2023 5.51 PONV (postoperative nausea and vomiting) 023 Assessment & Plan (12/19/2023 7:36 AM EDT): Assessment: noted Assessment & Plan (08/13/2023 1:27 PM EST): Assessment: noted HLD (hyperlipidemia) 08/10/2023 Assessment & Plan (12/19/2023 7:36 AM EDT): Assessment: diet controlled Follows up with PCP Assessment & Plan (08/13/2023 1:25 PM EST): Assessment: diet controlled Follows up with PCP and cardiology HTN (hypertension) 08/10/2023 Assessment & Plan (12/19/2023 7:36 AM EDT): Assessment: not on medication at this time Follows up with PCP Date: BP: 12/19/2023 142/73 11/23/2023 133/76 11/21/2023 162/81 11/13/2023 148/86 Assessment & Plan (08/13/2023 1:25 PM EST): Assessment: not on medication at this time Follows up with PCP and cardiology Asymptomatic Morbid obesity 08/10/2023 Assessment & Plan (12/19/2023 7:36 AM EDT): Assessment: diet and exercise encouraged Assessment & Plan (08/13/2023 1:08 PM EST): Assessment: diet and exercise encouraged Hypothyroidism 08/10/2023 Assessment & Plan (12/19/2023 7:35 AM EDT): Assessment: managed with med, stable Follows up with PCP Assessment & Plan (08/13/2023 1:08 PM EST): Assessment: managed with med, stable Follows up with PCP Cancer of sigmoid 07/03/2023 Cancer Staging:Clinical stage from 06/29/2023:Stage IVB(cTX, cNX, cM1b) - Signed by Andrew Dean MD on 07/20/2023 Pathologic stage from 01/03/2024:Stage I(ypT2, pN0, cM0) - Signed by Andrew Dean MD on 01/13/2024 Assessment & Plan (12/19/2023 7:36 AM EDT): Assessment: see HPI Rectal cancer 06/08/2023 Assessment & Plan (08/13/2023 1:29 PM EST): Assessment: chemo starting 08/29/23 Resolved Problems Problem Noted Date Diagnosed Date Resolved Date Encounter for ostomy care education 12/29/2023 01/04/2024 Ileostomy bag changed 12/29/20232023 Encounters Date Type Department Care Team Description 05/27/2025 9:30 AM EDT [facility] Hematology/Oncology [address] [place] [address] [place] [address] Malignant neoplasm of rectum (HCC) (Primary Dx); Malignant neoplasm of sigmoid colon (HCC) 05/14/2025 Travel from Last 3 Months Immunizations Immunization Administration Dates Next Due influenza (HD-IIV3) vaccine, age 65+ yr, high dose, trivalent, PF (FLUZONE HIGH-DOSE) 05/27/2024 influenza (IIV3) vaccine, tr ivalent (AFLURIA, FLULAVAL, FLUVIRIN, FLUZONE) 06/23/2019 influenza (IIV3) vaccine, tr ivalent, PF (AFLURIA, FLUARIX, FLULAVAL, FLUVIRIN, FLUZONE) 07/01/2015 influenza (IIV4) vaccine, quadrivalent (AFLURIA, FLULAVAL, FLUZONE) 06/21/2022,05/27/2020,07/16/2019,2017,07/17/2017 influenza (ccIIV4) vaccine, age 6+ mo, quadrivalent, PF (FLUCELVAX) 06/09/2023 respiratory syncytial virus (RSV) vaccine, adjuvanted (AREXVY) 06/27/2023 tetanus diphtheria pertussis (Tdap) vaccine, age 7+ yr (ADACEL, BOOSTRIX) 03/27/2023,06/02/2013 zoster (RZV) vaccine, recomb inant (SHINGRIX) 04/01/2019,10/02/2018 zoster (ZVL) vaccine, live (ZOSTAVAX) 01/22/2015 Family History Medical History Relation Comments Colon Cancer Brother COPD Father Heart Father Stroke Mother Relation Status Comments Brother Father Mother Social History Tobacco Use Types Packs/Day Years Used Date Smoking Tobacco: Never Smokeless Tobacco: Never Tobacco Cessation:Counseling Given: Not Answered Alcohol Use Standard Drinks/Week Comments Yes 0 (1 standard drink = 0.6 oz pure alcohol) 2 drinks a couple times a month [facility] Utilities Answer Date Recorded In the past 12 months has e [employer], [employer], oil, or water [employer] threatened to shut off services in your home? No 02/24/2024 PHQ-2 Answer Date Recorded PHQ-2 score 0 02/16/2025 Hunger Vital Sign Answer Date Recorded Within the past 12 months, y ou worried that your food would run out before you got the money to buy more. Never true 02/24/20 24 Within the past 12 months, t he food you bought just didn't last and you didn't have money to get more. Never true 02/24/2024 PRAPARE - Transportation Answer Date Re corded In the past 12 months, has l ack of transportation kept you from medical appointments or from getting medications? No 02/08 In the past 12 months, has l ack of transportation kept you from meetings, work, or from getting things needed for daily living? No 02/24/2024 Housing Stability Vital Sign Answer Rubens e Recorded In the last 12 months, was t here a time when you were not able to pay the mortgage or rent on time? No 02/24/2024 In the last 12 months, how many places have you lived? 1 02/24/2024 In the last 12 months, was t here a time when you did not have a steady place to sleep or slept in a group home (including now)? No 02/24/2024 Area Deprivation Index Answer Date Benito rded National Score (1-100), lower number is lower ri sk 61 06/05/2023 State Score (1-10), lower number is lower risk 4 06/05/2023 Data from: https://www.neighborhoodatlas.medicine.[facility].edu/. Last address used for calculation [address] 06/05/2023 Comments No Sex and Gender Information Value Date Recorded Sex Assigned at Not on file Legal Sex Female 10:42 AM EDT Gender Identity Not on file Sexual Orientation Not on file Last Filed Vital Signs Vital Sign Reading Time Taken Comments Blood Pressure 138/79 02/18/2025 10:32 AM EDT Pulse 80 02/18/2025 10:32 AM EDT Temperature 36.3 C (97.4 F) 02/18/2025 10:32 AM EDT Respiratory Rate 16 02/18/2025 10:32 AM EDT Oxygen Saturation 98% 02/18/2025 10:32 AM EDT Inhaled Oxygen Concentration - - Weight 97.6 kg (215 lb 2.7 oz) 02/18/2025 10:32 AM EDT Height 162.6 cm (5' 4.02 ) 02/18/2025 10:32 AM E DT Body Mass Index 36.92 02/18/2025 10:32 AM EDT Plan of Treatment Upcoming Encounters Date Type Department Care Team (Latest Contact Info) Description 08/20/2025 8:45 AM EST Appointment Radiology Pet CT [address] [facility] [place] [place] [address] CT CAP W IV port 08/27/2025 1:40 PM EST Visit (SP) Office Hematology/Oncology [address] [place] [address] [place] [address] Andrew Dean MD [address] [place] [address] [place] [address] 6 month follow up after CT scans Health Maintenance Due Date Last Done Comments Annual PCP Team Chronic Dise ase Visit 1977 Anxiety Screening 1977 Depression Screening 1977 Hepatitis C Screening [address] Colonography 02/03/2004 Fecal Occult Blood 02/03/2004 Lipid Screening 02/03/2004 Pneumococcal Vaccine: 50+ (1 of 1 - PCV) 2009 Cologuard (FIT-DNA) 02/09/2023 02/10/2020 Medicare Annual Wellness Visit 01/09/2024 Bone Density Screening 02/03/2024 Advance Directive Discussion 09/10/2024 Covid-19 Vaccine (9 - 2024-2 6 season) 2025 12/14/2024, 05/27/2024, 06/09/2023, Additional history exists Colonoscopy 08/04/2025 08/04/2024 Diabetes Screening 02/10/2028 02/09/2025, 0 10/27/2024, 07/14/2024, Additional history exists Colorectal Cancer Screening 06/08/2028 Sigmoidoscopy 06/08/2028 06/08/2023 DTaP,Tdap,Td Vaccine (3 - Td or Tdap) 03/27/2033 03/27/2023, 06/02/2013 Shingrix Vaccine Completed 04/01/2019, , 01/22/2015 RSV Vaccine Completed 06/27/2023 Influenza Vaccine Completed 05/20/2025, , 06/09/2023, Additional history exists Medical Devices Implanted Type Area Stranding Machine Operator Device Identifier Shelf Expiration Date Model / Serial / Lot Hemoblast Tanya And 1 Ea Short 10 Cm Cannula - [id number] Implanted:Qty: 1 on 12/28/2023 by Kaley Francois MD at [facility] [employer] [id number] / / Laparoscopic Applicators - [id number] Implanted:Qty: 1 on 12/28/2023 by Kaley Francois MD at [facility] [employer] [id number] / / Power Port-08/15/2023 Implanted:2022 (Quantity not on file) Port Chest Procedures Procedure Name Priority Date/Time Associated Diagnosis Comments COMPREHENSIVE METABOLIC PANEL Routine 02/09/2025 9:43 AM EDT Malignant neoplasm of sigmoid colon (HCC) Thrombocytopenia Fatty liver COLONOSCOPY SCREENING Routine 08/04/2024 7:06 AM EST History of colon cancer SIGMOIDOSCOPY Routine 06/08/2023 1:30 PM EDT Rectal cancer (HCC) from Last 3 Months or Most Recently Relevant to Health Maintenance Results * (ABNORMAL) COMPREHENSIVE METABOLIC PANEL (02/09/2025 9:43 AM EDT) Protein, Total 6.3 6.3 - 8.0 g/dL 02/09/2025 10:58 AM EDT [facility] Albumin 4.1 3.9 - 4.9 g/dL 02/09/2025 10:58 AM EDT [facility] Calcium, Total 9.5 8.5 - 10.2 mg/dL 02/09/2025 10:58 AM EDT [facility] Bilirubin, Total 0.3 0.2 - 1.3 mg/dL 02/09/2025 10:58 AM EDT [facility] Alkaline Phosphatase 72 34 - 123 U/L 02/09/2025 10:58 AM EDT [facility] AST 18 13 - 35 U/L 02/09/2025 10:58 AM EDT [facility] ALT 15 7 - 38 U/L 02/09/2025 10:58 AM EDT [facility] Glucose 121(H) 74 - 99 mg/dL 02/09/2025 10:58 AM EDT [facility] Comment: The [place] Diabetes Association (ADA) provides guidance for cutoff values for fasting glucose and random glucose. The ADA defines fasting as no caloric intake for at least 8 hours. Fasting plasma glucose results between 100 to 125 mg/dL indicate increased risk for diabetes (prediabetes). Fasting plasma glucose results greater than or equal to 126 mg/dL meet the criteria for diagnosis of diabetes. In the absence of unequivocal hyperglycemia, results should be confirmed by repeat testing. In a patient with classic symptoms of hyperglycemia or hyperglycemic crisis, random plasma glucose results greater than or equal to 200 mg/dL meet the criteria for diagnosis of diabetes. Reference: Standards of Medical Care in Diabetes 2016, Japanese Diabetes Association. Diabetes Care. 2016.39(Suppl 1). BUN 14 7 - 21 mg/dL 02/09/2025 10:58 AM T [facility] Creatinine 0.95 0.58 - 0.96 mg/dL 02/09/2025 10:58 AM T [facility] Sodium 139 136 - 144 mmol/L 02/09/2025 10:58 AM [facility] Potassium 3.9 3.7 - 5.1 mmol/L 02/09/2025 10:58 AM [facility] Chloride 106 98 - 107 mmol/L 02/09/2025 10:58 AM [facility] CO2 25 22 - 30 mmol/L 02/09/2025 10:58 AM T [facility] Anion Gap 8 8 - 15 mmol/L 02/09/2025 10:58 AM [facility] Estimated Glomerular Filtration Rate 66 >=60 mL/min/1. 73m 02/09/2025 10:58 AM [facility] Comment:Estimated Glomerular Filtration Rate (eGFR) is calculated using the 2020 CKD-EPI creatinine equation. This equation utilizes serum creatinine, sex, and age as parameters. The creatinine assay has traceable calibration to isotope dilution- mass spectrometry. Refer to KDIGO guidelines for clinical interpretation. In patients with unstable renal function, e.g. those with acute kidney injury, the eGFR may not accurately reflect actual GFR. Blood BLOOD SPECIMEN / Unknown Venipuncture / Unknown 02/09/2025 9:43 AM EDT 02/09/2025 9:56 AM EDT us Andrew Abhyankar MD LABORATORY Final Result [facility] [address] [place] [address] * COLONOSCOPY SCREENING (08/04/2024 7:06 AM EST) Anatomical Region Laterality Modality Other 08/04/2024 7:06 AM EST Narrative 08/04/2024 8:11 AM EST [facility] Gastrointestinal Endoscopy Patient Name: Nancy Sue Procedure Date: 08/04/2024 7:06 AM Date of : 1960 Admit Type: Outpatient Age: 64 Room: [place] [address] Gender: Female Note Status: Finalized Attending MD: Kaley Francois MD, [id number] Procedure: Colonoscopy Indications: High risk colon cancer surveillance: Personal history of colon cancer Providers: Kaley Francois MD, Marielena Platt RN, Desiree Christina RN Patient Profile: This is a 64 year old female. Refer to note in patient chart for documentation of history and physical. Last Colonoscopy: 2022. Referring Physician: Kaley Francois MD (Referring MD) Medicines: Monitored Anesthesia [...] in satisfactory condition to undergo the procedure. After I obtained informed consent, the scope was passed under direct vision. Throughout the procedure, the patient's blood pressure, pulse, and oxygen saturations were monitored continuously. The Colonoscope was introduced through the anus and advanced to the terminal ileum. The colonoscopy was performed without difficulty. The patient tolerated the procedure well. The terminal ileum, ileocecal valve, appendiceal orifice, and rectum were photographed. The quality of the bowel preparation was adequate. Scope Withdrawal Time: 0 hours 10 minutes 25 seconds Moderate Sedation: See the other procedure note for documentation of moderate sedation with intraservice time. MAC anesthesia was administered by the anesthesia team. Total Procedure Duration: 0 hours 16 minutes 7 seconds Findings: The perianal and digital rectal examinations were normal. Pertinent negatives include normal sphincter tone, no palpable rectal lesions and no anal lesion or abnormality. A 3 mm polyp was found in the rectum. The polyp was flat. The polyp was removed with a jumbo cold forceps. Resection and retrieval were complete. Estimated blood loss: none. A 2 mm polypoid lesion was found in the rectum. The lesion was flat. No bleeding was present. The polyp was removed with a jumbo cold forceps. Resection and retrieval were complete. There was evidence of a prior end-to-end colo-colonic anastomosis in the descending colon. This was patent and was characterized by healthy appearing mucosa, an intact appearance and an intact staple line. The anastomosis was traversed. The terminal ileum appeared normal. The retroflexed view of the distal rectum and anal verge was normal and showed no anal or rectal abnormalities. Impression: - One 3 mm polyp in the rectum, removed with a jumbo cold forceps. Resected and retrieved. - Likely benign polypoid lesion in the rectum. Complete removal was accomplished. - Patent end-to-end colo-colonic anastomosis, characterized by an intact staple line, healthy appearing mucosa and an intact appearance. - The examined portion of the ileum was normal. - The distal rectum and anal verge are normal on retroflexion view. Recommendation: - Patient has a contact number available for emergencies. The signs and symptoms of potential delayed complications were discussed with the patient. Return to normal activities tomorrow. Written discharge instructions were provided to the patient. - Resume previous diet. - Await pathology results. - Repeat colonoscopy in 3 years for surveillance based on personal history of colon cancer. - Continue present medications. Procedure Code(s): --- Professional --- 55997, Colonoscopy, flexible; with biopsy, single or multiple Diagnosis Code(s): --- Professional --- Z12.11, Encounter for screening for malignant neoplasm of colon Z85.038, Personal history of other malignant neoplasm of large intestine D12.8, Benign neoplasm of rectum D49.0, Neoplasm of unspecified behavior of digestive system Z98.0, Intestinal bypass and anastomosis status CPT copyright 2020 Japanese Medical Association. All rights reserved. The codes documented in this report are preliminary and upon research methodologist review may be revised to meet current compliance requirements. Attending Participation: I personally performed the entire procedure without the assistance of a fellow, resident or senior care assistant. Scope In: 7:38:00 AM Scope Out: 7:54:07 AM MD Kaley Cohen MD 08/04/2024 8:09:24 AM This report has been signed electronically by Kaley Francois MD Number of Addenda: 0 Note Initiated On: 08/04/2024 7:06 AM Estimated Blood Loss: Estimated blood loss: none. us Kaley Francois MD DIGESTIVE DISEASE Final Resu lt * SIGMOIDOSCOPY (06/08/2023 1:30 PM EDT) Anatomical Region Laterality Modality Other 06/08/2023 1:30 PM EDT Narrative 06/09/2023 4:38 PM EDT [facility] Gastrointestinal Endoscopy Patient Name: Nancy Sue Procedure Date: 06/08/2023 1:30 PM Date of : 1960 Admit Type: Outpatient Age: 63 Room: [place] [address] Gender: Female Note Status: Finalized Attending MD: Kaley Francois MD Procedure: Flexible Sigmoidoscopy Indications: Mass location Providers: Kaley Francois MD, Susy Betancourt RN, Marielena Platt RN (Assisting Nurse), Susy uLo RN (Assisting Nurse) Patient Profile: This is a 63 year old female. Refer to note in patient chart for documentation of history and physical. Last Colonoscopy: 2022. Referring Physician: Kaley Francois MD (Referring MD) Medicines: Monitored Anesthesia [...] schedule surgery Procedure Code(s): --- Professional --- 69837, Sigmoidoscopy, flexible; with directed submucosal injection(s), any substance Diagnosis Code(s): --- Professional --- C18.7, Malignant neoplasm of sigmoid colon CPT copyright 2020 Japanese Medical Association. All rights reserved. The codes documented in this report are preliminary and upon research methodologist review may be revised to meet current compliance requirements. Attending Participation: I personally performed the entire procedure. Scope In: 1:45:32 PM Scope Out: 1:58:31 PM MD Kaley Cohen MD 06/08/2023 2:09:37 PM This report has been signed electronically by Kaley Francois MD Number of Addenda: 0 Note Initiated On: 06/08/2023 1:30 PM Estimated Blood Loss: Estimated blood loss: none. Kaley Francois MD DIGESTIVE DISEASE Final Resu lt from Last 3 Months or Most Recently Relevant to Health Maintenance Insurance MEDICARE Member Subscriber Plan / Payer (Ef fective 2024-Present) Name:ByrondbNancy Member ID:[id number] Relation to Subscriber:Self Name:ByrondbNancy Subscriber ID:[id number] Payer ID:Not on file Group ID:Not on file Type:Medicare Address: [facility] [address] MEDICARE SUPPLEMENT Care Teams Vehicle Modification Technician Relationship Specialty Start Date End Date Justin Mcgowan MD [address] [place] [address] PCP - General Family Medicine 06/22/23 Andrew Dean MD [address] [place] [address] [place] [address] Physician Hematology/Oncology 08/14/23 Shasta Saravia, CABINET BUILDER.DIKE SUPERVISOR [address] [place] [address] Nurse Practitioner Hematology/Oncology 08/14/23 Penelope Teran, MONET [address] [place] [address] Specialty Child Care Lead Teacher Hematology/Oncology 08/14/[address] [place] [address] [place] [address] Registered Dietitian Nutrition 08/29/23
--- OUTSIDE RECORDS SUMMARY | 2025-06-22 09:13 | XMS_ITS | Encounter Summary ---
Author Organization [facility] Address [facility] [place] [address] Care Team Providers Care Production Service Manager Name Role Phone Justin Mcgowan MD Primary Care Provider + Andrew Daen MD Unavailable [phone] Shasta Saravia APRN.EDITOR Unavailable [phone] Penelope Teran RN Unavailable [phone] Unavailable [phone] Source Comments In the event this information is protected by the Federal Confidentiality of Alcohol and Drug AbusePatient Records regulations: The Federal rules restrict any use of the information to criminally investigate or prosecute any alcohol or drug abuse patient.[facility] Encounter Details Date Type Department Care Team (Late st Contact Info) Description 06/20/2023 Lab Requisition [facility] [address] [place] [address] [place] [address] [facility] [place] [address] Person encountering health services to consult on behalf of another person Social History Tobacco Use Types Packs/Day Years Used Date Smoking Tobacco: Never Assessed Area Deprivation Index Answer Date Benito rded National Score (1-100), lower number is lower ri sk 61 06/05/2023 State Score (1-10), lower number is lower risk 4 06/05/2023 Data from: https://www.neighborhoodatlas.medicine.[facility]/. Last address used for calculation [address] 06/05/2023 Comments No Sex and Gender Information Value Date Recorded Sex Assigned at Not on file Legal Sex Female 10:42 AM EDT Gender Identity Not on file Sexual Orientation Not on file documented as of this encounter Plan of Treatment Upcoming Encounters Date Type Department Care Team (Latest Contact Info) Description 08/20/2025 8:45 AM EST Appointment Radiology Pet CT [address] [facility] [facility] [place] [address] CT CAP W IV port 08/27/2025 1:40 PM EST Visit (SP) Office Hematology/Oncology [address] [facility] [facility] [place] [address] Andrew Dean MD [address] [place] [address] [place] [address] 6 month follow up after [address] scans documented as of this encounter Procedures Procedure Name Priority Date/Time Associated Diagnosis Comments OUTSIDE SURG PATH SLIDE REVIEW Routine 06/21/2023 10:19 AM EDT Person encountering health services to consult on behalf of another person MISMATCH REPAIR PROTEINS BY IHC Routine 06/21/2023 10:19 AM EDT Person encountering health services to consult on behalf of another person documented in this encounter Results * MISMATCH REPAIR PROTEINS BY IHC (06/21/2023 10:19 AM EDT) MISMATCH REPAIR PROTEINS BY IHC [place], [place]; 05/30/2023 MMR Status Report - Immunohistochemistry 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 at . Methods: [facility] MMR METHOD: Immunohistochemistry was performed on formalin fixed paraffin-embedded tissue using the following clones: MLH1 (clone M1 mouse monoclonal); MSH2 ([id number] mouse monoclonal); and MSH6 (SP93 rabbit monoclonal); followed by ultrasensitive bright field detection (Optiview with amplification) from [[employer], [place]]. PMS2 (EP51 Rabbit monoclonal, [employer]); followed by ultrasensitive bright field detection ( Victor Refine Polymer DAB Detection) from [[employer], [place], [place]]. Laboratory Developed Test (LDT) Disclaimer: Performance characteristics of immunohistochemical, immunofluorescent and chromogenic in-situ hybridization tests have been determined by the performing laboratory within [facility] s Fran Fangformerly [facility] Pathology and Laboratory Medicine [place] ([facility], [facility], [facility], [facility], [facility], [facility], or [facility]) in a manner consistent with CLIA requirements. One or more of these tests have not been cleared or approved by the FDA. [facility] is regulated under CLIA as qualified to perform high-complexity testing. These tests are used for clinical purposes. They should not be regarded as investigational or for research. Positive and negative controls stain appropriately. The diagnostic interpretation was performed at [place] [address] CLIA# [id number] / - 06/29/2023 07/02/2023 4:55 PM EDT [facility] Comment:Electronically berhane d out by: Anselmo Yates MD Blocks or Slides PARAFFIN EMBEDDED TISSUE BLOCK SPECIMEN / Unknown 06/21/2023 10:19 AM EDT 06/26/2023 7:28 PM EDT us Kaley Francois MD SURGICAL PATHOLOGY Final Res ult [address] [place] [address], * OUTSIDE SURG PATH SLIDE REVIEW (06/21/2023 10:19 AM EDT) Case Report Surgical Pathology Report Case: [id number] Authorizing Provider: Kaley Francois MD Collected: 06/21/2023 10:19 AM Ordering Location: Laboratory Medicine Received: 06/20/2023 12:11 PM Pathologist: Wesley Hobbs MD, PhD Specimen: SLIDE(S)/BLOCK(S) , 6 SLIDES & 3 BLOCKS (A1-C1) [id number] 07/02/2023 12:17 PM EDT [facility] FINAL DIAGNOSIS [place], [place] ([id number], 05/30/2023) 1. Descending colon, polyp, biopsy (A1): - Tubular adenoma. 2. Sigmoid colon, polyp, biopsy (B1): - Hyperplastic polyp. 3. Rectal mass, biopsy (C1). - Invasive moderately differentiated adenocarcinoma. 07/02/2023 12:17 PM EDT [facility] at 1036 EDT Performing Lab Diagnostic interpretation performed at [facility], [address] [place] [address] CLIA# [id number] Literary Agent: Rivas Bourne M.D. 07/02/2023 12:17 PM EDT [facility] Addendum Dr. Jennifer Esteban, a member of [facility], reviewed part 3 of this case and agrees with the diagnosis. 07/02/2023 12:17 PM EDT [facility] Addendum electronically signed by Wesley Hobbs MD, PhD on 07/02/2023 at 1217 EDT Blocks or Slides PARAFFIN EMBEDDED TISSUE BLOCK SPECIMEN / Unknown 06/21/2023 10:19 AM EDT 06/20/2023 12:11 PM EDT us Kaley Francois MD SURGICAL PATHOLOGY Edited Re sult - Final [facility] [address] [place] [address] [place] [address], documented in this encounter Visit Diagnoses Diagnosis Person encountering health services to consult on behalf of another person Other person consulting on behalf of another person documented in this encounter Care Teams Production Service Manager Relationship Specialty Start Date End Date Justin Mcgowan MD [address] [place] [address] PCP - General Family Medicine 06/22/23 Andrew Dean MD [address] [place] [address] Physician Hematology/Oncology 08/14/23 Shasta Saravia, ROBERTA.EDITOR [address] [facility] [place] [address] Nurse Practitioner Hematology/Oncology 08/14/23 Penelope Teran, MONET [address] [place] [address] [place] [address] Specialty Reconciling Clerk Hematology/Oncology 08/14/[address] [place] [address] [place] [address] Registered Dietitian Nutrition 08/29/23 documented as of this encounter
--- OUTSIDE RECORDS SUMMARY | 2025-06-22 09:13 | XMS_ITS | Encounter Summary ---
Author Organization [facility] Address [address] [place] [address] Care Team Providers Care Movie Producer Name Role Phone Justin Mcgowan MD Primary Care Provider + Andrew Dean MD Unavailable [phone] Shasta Saravia APRN.ACCOUNT DEVELOPMENT SPECIALIST Unavailable [phone] Penelope Teran RN Unavailable [phone] Unavailable [phone] Source Comments In the event this information is protected by the Federal Confidentiality of Alcohol and Drug AbusePatient Records regulations: The Federal rules restrict any use of the information to criminally investigate or prosecute any alcohol or drug abuse patient.[facility] Encounter Details Date Type Department Care Team (Late st Contact Info) Description 08/06/2024 Patient Msg Colorectal Surgery LAISON SELF MARILYN [address] [place] [id number] Provider, [facility]cf due for repeat colonoscopy in July 2027 Social History Tobacco Use Types Packs/Day Years Used Date Smoking Tobacco: Never Smokeless Tobacco: Never Alcohol Use Standard Drinks/Week Comments Yes 0 (1 standard drink = 0.6 oz pure alcohol) 2 drinks a couple times a month [facility] Utilities Answer Date Recorded In the past 12 months has th e electric, gas, oil, or water company threatened to shut off services in your home? No 02/24/2024 PHQ-2 Answer Date Recorded PHQ-2 score 0 07/12/2024 Hunger Vital Sign Answer Date Recorded Within [...] place to sleep or slept in a half-way (including now)? No 02/24/2024 Area Deprivation Index Answer Date Benito rded National Score (1-100), lower number is lower ri sk 61 06/05/2023 State Score (1-10), lower number is lower risk 4 06/05/2023 Data from: https://www.neighborhoodatlas.medicine.[facility].edu/. Last address used for calculation [address] 06/05/2023 Comments No Sex and Gender Information Value Date Recorded Sex Assigned at Not on file Legal Sex Female 10:42 AM EDT Gender Identity Not on file Sexual Orientation Not on file documented as of this encounter Functional Status * Are you deaf or do you have serious difficulty hearing? Answer Date of Assessment Author No 02/24/2024 12:04 PM DAVET Shreya Root RN * Are you blind or do you have serious difficulty seeing, even when wearing glasses? Answer Date of Assessment Author No 02/24/2024 12:04 PM EDShreya Alonzo RN * Do you have serious difficulty walking or climbing stairs? Answer Date of Assessment Author No 02/24/2024 12:04 PM Shreya Nam RN * Do you have difficulty dressing or bathing? Answer Date of Assessment Author No 02/24/2024 12:04 PM Shreya Nam RN * Because of a physical, mental, or emotional condition, do you have difficulty doing errands alone such as visiting a doctor's office or shopping? Answer Date of Assessment Author No 02/24/2024 12:04 PM Shreya Nam RN documented as of this encounter Mental Status * Because of a physical, mental, or emotional condition, do you have serious difficulty concentrating, remembering, or making decisions? Answer Entry Date Author No 02/24/2024 12:04 PM Shreya Nam RN documented in this encounter Plan of Treatment Upcoming Encounters Date Type Department Care Team (Latest Contact Info) Description 08/20/2025 8:45 AM EST Appointment Radiology Pet CT [address] [facility] [place] [address] CT CAP W IV port 08/27/2025 1:40 PM EST Visit (SP) Office Hematology/Oncology [address] [place] [address] [place] [address] Andrew Dean MD [address] [place] [address] [place] [address] 6 month follow up after [address] scans documented as of this encounter Visit Diagnoses Not on filedocumented in this encounter Care Teams Movie Producer Relationship Specialty Start Date End Date Justin Mcgowan MD [address] [place] [address] PCP - General Family Medicine 06/22/23 Andrew Dean MD [address] [facility] [place] [address] Physician Hematology/Oncology 08/14/23 Shasta Saravia APRN.ACCOUNT DEVELOPMENT SPECIALIST [address] [place] [address] [place] [address] Nurse Practitioner Hematology/Oncology 08/14/23 Penelope Teran, MONET [address] [facility] [place] [address] Specialty Wood Repatcher Hematology/Oncology 08/14/[address] [place] [address] [place] [address] Registered Dietitian Nutrition 08/29/23 documented as of this encounter
--- OUTSIDE RECORDS SUMMARY | 2025-06-22 09:13 | XMS_ITS | Encounter Summary ---
Author Organization [facility] Address [address] [place] [address] Care Team Providers Care Component Inspector Name Role Phone Justin Mcgowan MD Primary Care Provider + Andrew Dean MD Unavailable [phone] Shasta Saravia APRN.OPERATIONS RESEARCH DIRECTOR Unavailable [phone] Penelope Terna RN Unavailable [phone] Unavailable [phone] Source Comments In the event this information is protected by the Federal Confidentiality of Alcohol and Drug AbusePatient Records regulations: The Federal rules restrict any use of the information to criminally investigate or prosecute any alcohol or drug abuse patient.[facility] Encounter Details Date Type Department Care Team (Late st Contact Info) Description 12/14/2023 Patient Msg Pre Anesthesia [address] [place] [address] Provider, [facility]cf PACC Appointment Social History Tobacco Use Types Packs/Day Years [...] is lower risk 4 06/05/2023 Data from: https://www.neighborhoodatlas.medicine.[facility]/. Last address used for calculation [address] [...] AM EST Appointment Radiology Pet CT [address] [facility] [place] [address] CT CAP W IV port 08/27/2025 1:40 PM EST Visit (SP) Office Hematology/Oncology [address] [place] [address] [place] [address] Andrew Dean MD [address] [place] [address] [place] [address] 6 month follow up after [address] scans documented as of this encounter Visit Diagnoses Not on filedocumented in this encounter Care Teams Component Inspector Relationship Specialty Start Date End Date Justin Mcgowan MD [address] [place] [address] PCP - General Family Medicine 06/22/23 Andrew Dean MD [address] [place] [address] [place] [address] Physician Hematology/Oncology 08/14/23 Shasta Saravia APRN.OPERATIONS RESEARCH DIRECTOR [address] [place] [address] [place] [address] Nurse Practitioner Hematology/Oncology 08/14/23 Penelope Teran, MONET [address] [place] [address] [place] [address] Specialty Port Cdl A Driver Hematology/Oncology 08/14/[address] [place] [address] [place] [address] Registered Dietitian Nutrition 08/29/23 documented as of this encounter
--- OUTSIDE RECORDS SUMMARY | 2025-06-22 09:13 | XMS_ITS | Encounter Summary ---
Author Organization [facility] Address [address] [place] [address] Care Team Providers Care Glass Scullion Name Role Phone Justin Mcgowan MD Primary Care Provider + Andrew Dean MD Unavailable [phone] Shasta Saravia APRN.SENIOR TAX SPECIALIST Unavailable [phone] Penelope Teran RN Unavailable [phone] Unavailable [phone] Source Comments In the event this information is protected by the Federal Confidentiality of Alcohol and Drug AbusePatient Records regulations: The Federal rules restrict any use of the information to criminally investigate or prosecute any alcohol or drug abuse patient.[facility] Encounter Details Date Type Department Care Team (Late st Contact Info) Description 08/30/2023 Patient Msg [facility] [address] [place] [address] Neel Cyr, [place] [address] [place] [address] Genetic Test Result Social History Tobacco Use Types Packs/Day Years [...] is lower risk 4 06/05/2023 Data from: https://www.neighborhoodatlas.[facility]/. Last address used for calculation [address] [facility] 06/05/2023 Comments No Sex and Gender Information Value Date Recorded Sex Assigned at Not on file Legal Sex Female 10:42 AM EDT Gender Identity Not on file Sexual Orientation Not on file documented as of this encounter Plan of Treatment Upcoming Encounters Date Type Department Care Team (Latest Contact Info) Description 08/20/2025 8:45 AM EST Appointment Radiology Pet CT [address] [place] [address] CT CAP W IV port 08/27/2025 1:40 PM EST Visit (SP) Office Hematology/Oncology [facility] [place] [address] Andrew Dean MD [address] [place] [address] [place] [address] 6 month follow up after [address] scans documented as of this encounter Visit Diagnoses Not on filedocumented in this encounter Care Teams Glass Scullion Relationship Specialty Start Date End Date Justin Mcgowan MD [address] [place] [address] PCP - General Family Medicine 06/22/23 Andrew Dean MD [facility] [place] [address] Physician Hematology/Oncology 08/14/23 Shasta Saravia APRN.SENIOR TAX SPECIALIST [facility] [place] [address] Nurse Practitioner Hematology/Oncology 08/14/23 Penelope Teran, RN [address] [place] [address] [place] [address] Specialty Print Line Operator Hematology/Oncology 08/14/[address] [place] [address] [place] [address] Registered Dietitian Nutrition 08/29/23 documented as of this encounter
--- OUTSIDE RECORDS SUMMARY | 2025-06-22 09:13 | XMS_ITS ---
Author Organization [facility] Address [address] [place] [address] Care Team Providers Care Utilities Service Investigator Name Role Phone Justin Mcgowan MD Primary Care Provider + Andrew Dean MD Unavailable [phone] [address] Saravia MEDICAL WRITER.INFECTION CONTROL PRACTITIONER Unavailable [phone] Penelope Teran RN Unavailable [phone] Unavailable [phone] Active Problems Problem Noted Date Diagnosed Date [...] 1:29 PM EST): Assessment: chemo starting 08/29/23 Current Treatment and Therapy Plans No current plan information found. Past Treatment and Therapy Plans NON-CHEMO 1 Plan Name Start Date Discontinue Date Treatment Medications Discontinue Reason Plan Provider Cycles AMB HYDRATION - NS 1000ML IV - ONCE 3 03/21/2024 No medications scheduled. Other Andrew Dean MD 5 of 8 cycles started ONCOLOGY REGIMEN Plan Name Start Date Discontinue Date Treatment Medications Discontinue Reason Plan Provider Cycles AMB MODIFIED FOLFOX 6 - OXALIPLATIN 85 5FU 400 IVP D1 5FU 2400 CADD OVER 46 HRS - Q14D 023 04/16/2024 fluorouracil iv infusion CASSETTE (ADRUCIL)with rateleucovorin iv piggybackoxaliplatin iv piggyback in D5W 500 mL (ELOXATIN)palonosetron (ALOXI)pegfilgrastim-ry cerrato (FULPHILA) Other Andrew Dean MD 5 of 12 cycles started Resolved Problems Problem Noted Date Diagnosed Date Resolved Date Encounter for ostomy care education 12/29/2023 01/04/2024 Ileostomy bag changed 12/29/20232023
--- OUTSIDE RECORDS SUMMARY | 2025-06-22 09:13 | XMS_ITS | Encounter Summary ---
Author Organization [facility] Address [address] [place] [address] Care Team Providers Care Utility Division Project Manager Name Role Phone Justin Mcgowan MD Primary Care Provider + Andrew Dean MD Unavailable [phone] Shasta Saravia APRN.MICROSTRATEGY ARCHITECT Unavailable [phone] Penelope Teran RN Unavailable [phone] Unavailable [phone] Source Comments In the event this information is protected by the Federal Confidentiality of Alcohol and Drug AbusePatient Records regulations: The Federal rules restrict any use of the information to criminally investigate or prosecute any alcohol or drug abuse patient.[facility] Encounter Details Date Type Department Care Team (Late st Contact Info) Description 02/03/2024 [place] [address] Provider, Ccf Medicare Coverage of Physical Exams Social History Tobacco Use Types Packs/Day Years Used Date Smoking Tobacco: Never Smokeless Tobacco: Never Alcohol Use Standard Drinks/Week Comments Yes 0 (1 standard drink = 0.6 oz pure alcohol) 2 drinks a couple times a month [facility] Utilities Answer Date Recorded In the past 12 months has [employer], gas, oil, or water [facility] threatened to shut off services in your home? No 01/18/2024 PHQ-2 Answer Date Recorded PHQ-2 score 2 01/11/2024 Hunger Vital Sign Answer Date Recorded Within the past 12 months, y ou worried that your food would run out before you got the money to buy more. Never true 01/18/20 24 Within the past 12 months, t he food you bought just didn't last and you didn't have money to get more. Never true 01/18/2024 PRAPARE - Transportation Answer Date Re corded In the past 12 months, has l ack of transportation kept you from medical appointments or from getting medications? No 01/08 In the past 12 months, has l ack of transportation kept you from meetings, work, or from getting things needed for daily living? No 01/18/2024 Housing Stability Vital Sign Answer Rubens e Recorded In the last 12 months, was t here a time when you were not able to pay the mortgage or rent on time? No 01/18/2024 Number of Places Lived in the Last Year Not on f ile 01/18/2024 In the last 12 months, was t here a time when you did not have a steady place to sleep or slept in a group home (including now)? No 01/18/2024 Area Deprivation Index Answer Date Benito rded National Score (1-100), lower number is lower ri sk 61 06/05/2023 State Score (1-10), lower number is lower risk 4 06/05/2023 Data from: https://www.neighborhoodatlas.medicine.[facility].edu/. Last address used for calculation [address] [facility] 06/05/2023 Comments No Sex and Gender Information Value Date Recorded Sex Assigned at Not on file Legal Sex Female 10:42 AM EDT Gender Identity Not on file Sexual Orientation Not on file documented as of this encounter Functional Status * Are you deaf or do you have serious difficulty hearing? Answer Date of Assessment Author No 01/03/2024 5:47 PM EDT Burton Montgomery RN * Are you blind or do you have serious difficulty seeing, even when wearing glasses? Answer Date of Assessment Author No 01/03/2024 5:47 PM EDT Burton Montgomery RN * Do you have serious difficulty walking or climbing stairs? Answer Date of Assessment Author No 01/03/2024 5:47 PM EDT Burton Montgomery RN * Do you have difficulty dressing or bathing? Answer Date of Assessment Author Yes 01/03/2024 5:47 PM EDT Burton Montgomery RN * Because of a physical, mental, or emotional condition, do you have difficulty doing errands alone such as visiting a doctor's office or shopping? Answer Date of Assessment Author No 01/03/2024 5:47 PM EDT Burton Montgomery RN documented as of this encounter Mental Status * Because of a physical, mental, or emotional condition, do you have serious difficulty concentrating, remembering, or making decisions? Answer Entry Date Author No 01/03/2024 5:47 PM EDT Burton Montgomery RN documented in this encounter Plan of Treatment Upcoming Encounters Date Type Department Care Team (Latest Contact Info) Description 08/20/2025 8:45 AM EST Appointment Radiology Pet CT [address] [facility] [place] [place] [address] CT CAP W IV port 08/27/2025 1:40 PM EST Visit (SP) Office Hematology/Oncology [address] [place], [place] [address] [address] Andrew Dean MD [address] [place] [address] [place] [address] 6 month follow up after [address] scans documented as of this encounter Visit Diagnoses Not on filedocumented in this encounter Care Teams Utility Division Project Manager Relationship Specialty Start Date End Date Justin Mcgowan MD [address] [place] [address] PCP - General Family Medicine 06/22/23 Adnrew Dean MD [facility] [place] [address] Physician Hematology/Oncology 08/14/23 Shasta Saravia APRN.MICROSTRATEGY ARCHITECT [facility] [place] [address] Nurse Practitioner Hematology/Oncology 08/14/23 Penelope Teran, MONET [address] [place] [address] [place] [address] Specialty Vp Genetic Hematology/Oncology 08/14/[address] [place] [address] [place] [address] Registered Dietitian Nutrition 08/29/23 documented as of this encounter
--- OUTSIDE RECORDS SUMMARY | 2025-06-22 09:13 | XMS_ITS | Encounter Summary ---
Author Organization [facility] Address [address] [place] [address] Care Team Providers Care Investigative Writer Name Role Phone Justin Mcgowan MD Primary Care Provider + Andrew Dean MD Unavailable [phone] Shasta Saravia APRN.CEREAL POPPER Unavailable [phone] Penelope Teran RN Unavailable [phone] Unavailable [phone] Source Comments In the event this information is protected by the Federal Confidentiality of Alcohol and Drug AbusePatient Records regulations: The Federal rules restrict any use of the information to criminally investigate or prosecute any alcohol or drug abuse patient.[facility] Encounter Details Date Type Department Care Team (Late st Contact Info) Description 08/10/2023 Patient [facility] Radiology Procedure [address] [facility] [place] [address] Provider, Ccf You are scheduled for a port placement, On 08/15/2023. Social History Tobacco Use Types Packs/Day Years Used Date Smoking Tobacco: Never Smokeless Tobacco: Never Alcohol Use Standard Drinks/Week Comments Yes 0 (1 standard drink = 0.6 oz pur e alcohol) socially PHQ-2 Answer Date Recorded PHQ-2 score 0 07/18/2023 Area Deprivation Index Answer Date Benito rded National Score (1-100), lower number is lower ri sk 61 06/05/2023 State Score (1-10), lower number is lower risk 4 06/05/2023 Data from: https://www.neighborhoodatlas.medicine.[facility]/. Last address used for calculation [address] [...] AM EST Appointment Radiology Pet CT [address] [facility] [place] [place] [address] CT CAP W IV port 08/27/2025 1:40 PM EST Visit (SP) Office Hematology/Oncology [address] [place] [address] [place] [address] Andrew Dean MD [address] [place] [address] [place] [address] 6 month follow up after [address] scans documented as of this encounter Visit Diagnoses Not on filedocumented in this encounter Care Teams Investigative Writer Relationship Specialty Start Date End Date Justin Mcgowan MD [address] [place] [address] PCP - General Family Medicine 06/22/23 Andrew Dean MD [address] [place] [address] [place] [address] Physician Hematology/Oncology 08/14/23 Shasta Saravia APRN.CEREAL POPPER [address] [place] [address] [place] [address] Nurse Practitioner Hematology/Oncology 08/14/23 Penelope Teran, MONET [address] [place] [address] [place] [address] Specialty Box Puller Hematology/Oncology 08/14/[address] [place] [address] [place] [address] Registered Dietitian Nutrition 08/29/23 documented as of this encounter
--- OUTSIDE RECORDS SUMMARY | 2025-06-22 09:14 | XMS_ITS | Encounter Summary ---
Author Organization [facility] Address [address] [place] [address] Care Team Providers Care Training And Development Assistant Name Role Phone Justin Mcgowan MD Primary Care Provider + Andrew Dean MD Unavailable [phone] Shasta Saravia APRN.CLINIC ADMINISTRATOR Unavailable [phone] Penelope Teran RN Unavailable [phone] Unavailable [phone] Source Comments In the event this information is protected by the Federal Confidentiality of Alcohol and Drug AbusePatient Records regulations: The Federal rules restrict any use of the information to criminally investigate or prosecute any alcohol or drug abuse patient.[facility] Encounter Details Date Type Department Care Team (Late st Contact Info) Description 03/20/2024 Patient Msg Hematology/Oncology [address] [facility] [place] [address] Provider, Ccf Appointment Cancellation Request Social History Tobacco Use Types Packs/Day Years Used Date Smoking Tobacco: Never Smokeless Tobacco: Never Alcohol Use Standard Drinks/Week Comments Yes 0 (1 standard drink = 0.6 oz pure alcohol) 2 drinks a couple times a month [facility] Utilities Answer Date Recorded In the past 12 months has th e electric, gas, oil, or water company threatened to shut off services in your home? No 02/24/2024 PHQ-2 Answer Date Recorded PHQ-2 score 2 [...] place to sleep or slept in a usp (including now)? No 02/24/2024 Area Deprivation Index Answer Date Benito rded National Score (1-100), lower number is lower ri sk 61 06/05/2023 State Score (1-10), lower number is lower risk 4 06/05/2023 Data from: https://www.neighborhoodatlas.medicine.[facility].edu/. Last address used for calculation [address] [...] Author No 02/24/2024 12:04 PM DAVET Shreya Root, RN * Are you blind or do you have serious difficulty seeing, even when wearing glasses? Answer Date of Assessment Author No 02/24/2024 12:04 PM Shreya Nam RN * Do you have serious difficulty [...] AM EST Appointment Radiology Pet CT [address] [facility] [place] [address] CT CAP W IV port 08/27/2025 1:40 PM EST Visit (SP) Office Hematology/Oncology [address] [place] [address] [place] [address] Andrew Dean MD [address] [place] [address] [place] [address] 6 month follow up after [address] scans documented as of this encounter Visit Diagnoses Not on filedocumented in this encounter Care Teams Training And Development Assistant Relationship Specialty Start Date End Date Justin Mcgowan MD [address] [place] [address] PCP - General Family Medicine 06/22/23 Andrew Dean MD [address] [place] [address] [place] [address] Physician Hematology/Oncology 08/14/23 Shasta Saravia APRN.CLINIC ADMINISTRATOR [address] [facility] [place] [address] Nurse Practitioner Hematology/Oncology 08/14/23 Penelope Teran, RN [address] [place] [address] [place] [address] Specialty Professor Computer Science Hematology/Oncology 08/14/[address] [place] [address] [place] [address] Registered Dietitian Nutrition 08/29/23 documented as of this encounter
--- OUTSIDE RECORDS SUMMARY | 2025-06-22 09:14 | XMS_ITS | Encounter Summary ---
Author Organization [facility] Address [address] [place] [address] Care Team Providers Care Model Home Sales Greeter Name Role Phone Justin Mcgowan MD Primary Care Provider + Andrew Dean MD Unavailable [phone] Shasta Saravia APRN.PEANUT SHAKER Unavailable [phone] Penelope Teran RN Unavailable [phone] Unavailable [phone] Source Comments In the event this information is protected by the Federal Confidentiality of Alcohol and Drug AbusePatient Records regulations: The Federal rules restrict any use of the information to criminally investigate or prosecute any alcohol or drug abuse patient.[facility] Encounter Details Date Type Department Care Team (Late st Contact Info) Description 03/20/2024 Patient Msg Hematology/Oncology [address] [place] [address] Andrew Dean MD [address] [place] [address] Appointment Cancellation Request Social History Tobacco Use Types Packs/Day Years Used Date Smoking Tobacco: Never Smokeless Tobacco: Never Alcohol Use Standard Drinks/Week Comments Yes 0 (1 standard drink = 0.6 oz pure alcohol) 2 drinks a couple times a month [facility] Utilities Answer Date Recorded In the [...] place to sleep or slept in a longterm (including now)? No 02/24/2024 Area Deprivation Index Answer Date Benito rded National Score (1-100), lower number is lower ri sk 61 06/05/2023 State Score (1-10), lower number is lower risk 4 06/05/2023 Data from: https://www.neighborhoodatlas.medicine.[facility].edu/. Last address used for calculation [address] [...] of Assessment Author No 02/24/2024 12:04 PM EDT Shreya Root, MONET * Are you blind or do you [...] AM EST Appointment Radiology Pet CT [address] [facility] [place] [address] CT CAP W IV port 08/27/2025 1:40 PM EST Visit (SP) Office Hematology/Oncology [address] [place] [address] [place] [address] Andrew Dean MD [address] [place] [address] [place] [address] 6 month follow up after CT scans documented as of this encounter Visit Diagnoses Not on filedocumented in this encounter Care Teams Model Home Sales Greeter Relationship Specialty Start Date End Date Justin Mcgowan MD [address] [place] [address] PCP - General Family Medicine 06/22/23 Andrew Dean MD [address] [facility] [place] [address] Physician Hematology/Oncology 08/14/23 Shasta Saravia APRN.PEANUT SHAKER [address] [place] [address] [place] [address] Nurse Practitioner Hematology/Oncology 08/14/23 Penelope Teran, MONET [address] [place] [address] [place] [address] Specialty Packaging Coordinator Hematology/Oncology 08/14/[address] [place] [address] [place] [address] Registered Dietitian Nutrition 08/29/23 documented as of this encounter
--- OUTSIDE RECORDS SUMMARY | 2025-06-22 09:14 | XMS_ITS | Encounter Summary ---
Author Organization [facility] Address [address] [place] [address] Care Team Providers Care Steffen House Supervisor Name Role Phone Justin Mcgowan MD Primary Care Provider + Andrew Dean MD Unavailable [phone] Shasta Saravia APRN.SUPPLY CHAIN DIRECTOR Unavailable [phone] Penelope Teran RN Unavailable [phone] Unavailable [phone] Source Comments In the event this information is protected by the Federal Confidentiality of Alcohol and Drug AbusePatient Records regulations: The Federal rules restrict any use of the information to criminally investigate or prosecute any alcohol or drug abuse patient.[facility] Encounter Details Date Type Department Care Team (Late st Contact Info) Description 03/20/2024 Patient Msg Hematology/Oncology [address] [place] [address] Provider, Ccf Appointment Cancellation Request Social History Tobacco Use Types Packs/Day Years Used Date Smoking Tobacco: Never Smokeless Tobacco: Never Alcohol Use Standard Drinks/Week Comments Yes 0 (1 standard drink = 0.6 oz pure alcohol) 2 drinks a couple times a month [facility] Utilities Answer Date Recorded In [...] place to sleep or slept in a jail (including now)? No 02/24/2024 Area Deprivation Index Answer Date Benito rded National Score (1-100), lower number is lower ri sk 61 06/05/2023 State Score (1-10), lower number is lower risk 4 06/05/2023 Data from: https://www.neighborhoodatlas.medicine.[facility].edu/. Last address used for calculation [address] [...] AM EST Appointment Radiology Pet CT [address] [facility] [place] [place] [address] CT CAP W IV port 08/27/2025 1:40 PM EST Visit (SP) Office Hematology/Oncology [address] [place] [address] [place] [address] Andrew Dean MD [address] [place] [address] [place] [address] 6 month follow up after [address] scans documented as of this encounter Visit Diagnoses Not on filedocumented in this encounter Care Teams Steffen House Supervisor Relationship Specialty Start Date End Date Justin Mcgowan MD [address] [place] [address] PCP - General Family Medicine 06/22/23 Andrew Dean MD [address] [place] [address] [place] [address] Physician Hematology/Oncology 08/14/23 Shasta Saravia APRN.SUPPLY CHAIN DIRECTOR [address] [facility] [place] [address] Nurse Practitioner Hematology/Oncology 08/14/23 Penelope Teran, RN [address] [place] [address] [place] [address] Specialty Casino Enforcement Agent Hematology/Oncology 08/14/[address] [place] [address] [place] [address] Registered Dietitian Nutrition 08/29/23 documented as of this encounter
--- OUTSIDE RECORDS SUMMARY | 2025-06-22 09:14 | XMS_ITS | Encounter Summary ---
Author Organization [facility] Address [address] [place] [address] Care Team Providers Care Barn And Property Manager Name Role Phone Justin Mcgowan MD Primary Care Provider + Andrew Dean MD Unavailable [phone] Shasta Saravia APRN.PACKING CHECKER Unavailable [phone] Penelope Teran RN Unavailable [phone] Unavailable [phone] Source Comments In the event this information is protected by the Federal Confidentiality of Alcohol and Drug AbusePatient Records regulations: The Federal rules restrict any use of the information to criminally investigate or prosecute any alcohol or drug abuse patient.[facility] Encounter Details Date Type Department Care Team (Late st Contact Info) Description 05/26/2024 Patient Msg Urology [address] [place] [address] Provider, Ccf APPOINTMENT CANCELLED Social History Tobacco Use Types Packs/Day Years Used Date Smoking Tobacco: Never Smokeless Tobacco: Never Alcohol Use Standard Drinks/Week Comments Yes 0 (1 standard drink = 0.6 oz pure alcohol) 2 drinks a couple times a month [facility] Utilities Answer Date Recorded In the [...] is lower risk 4 06/05/2023 Data from: https://www.neighborhoodatlas.medicine.[facility].edu/. Last address used for calculation [address] [facility] 06/05/2023 Comments No Sex and [...] No 02/24/2024 12:04 PM EDT Shreya Root, RN * Are you blind [...] AM EST Appointment Radiology Pet CT [address] [facility] [place] [address] CT CAP W IV port 08/27/2025 1:40 PM EST Visit (SP) Office Hematology/Oncology [address] [place] [address] [place] [address] Andrew Dean MD [address] [place] [address] [place] [address] 6 month follow up after [address] scans documented as of this encounter Visit Diagnoses Not on filedocumented in this encounter Care Teams Barn And Property Manager Relationship Specialty Start Date End Date Justin Mcgowan MD [address] [place] [address] PCP - General Family Medicine 06/22/23 Andrew Dean MD [address] [facility] [place] [address] Physician Hematology/Oncology 08/14/23 Shasta Saravia APRN.PACKING CHECKER [address] [place] [address] [place] [address] Nurse Practitioner Hematology/Oncology 08/14/23 Penelope Teran, MONET [address] [place] [address] [place] [address] Specialty [address] Contractor Hematology/Oncology 08/14/[address] [place] [address] [place] [address] Registered Dietitian Nutrition 08/29/23 documented as of this encounter
--- OUTSIDE RECORDS SUMMARY | 2025-06-22 09:22 | XMS_ITS | CCD ---
Author Organization [facility] Care Team Providers Care Information Analyst Name Role Phone SITA ., DR GACRIA Admitting Unavailable HOY ., DR GARCIA Attending Unavailable HOY ., DR GARCIA Primary Care Unavailable HOY ., DR GARCIA Consulting Unavailable ZIEBER, DR DIANA Sloan Consulting Unavailable MERLE, BELEN Admitting Unavailable BELEN BLOOM Attending Unavailable HOY ., DR GARCIA Primary Care Unavailable BELEN BLOOM Consulting Unavailable HOY ., DR GARCIA Admitting Unavailable HOY ., DR GARCIA Attending Unavailable HOY ., DR GARCIA Primary Care Unavailable HOY ., DR GARCIA Consulting Unavailable Justin Buckner Primary Care Physician Unavailable Primary Care Provider UnavailJustin Daniels MD Primary Care Provider [phone] Dianne MUNOZ, Jose Unavailable [phone] Manjit COMMUNITY SERVICE COORDINATOR.WILDFIRE PREVENTION SPECIALIST, Shasta Unavailable Parul RN, Penelope Unavailable Josemanuel RD, Eliza Unavailable [phone] Justin Buckner MD Primary Care Provider [phone] Justin Buckner MD Primary Care Provider [phone] AYDIN JEREZ Admitting Unavailable AYDIN JEREZ Attending Unavailable JUSTIN BUCKNER Primary Care Unavailable KALEY FRANCOIS Referring Unavailable JUSTIN BUCKNER Primary Care Unavailable KALEY FRANCOIS Referring Unavailable JUSTIN BUCKNER Primary Care Unavailable KALEY FRANCOIS Referring Unavailable JUSTIN BUCKNER Primary Care Unavailable MD Justin Buckner Primary Care Provider [phone] MD Justin Buckner Attending Provider HOY, JUSTIN M Primary Care Unavailable KESHINRO, AJARATU Admitting Unavailable ALESSANDRO, DAVIDARAFrantzU Attending Unavailable HOY, JUSTIN M Primary Care Unavailable DAO DIXON Attending Unavailable HOY, JUSTIN M Primary Care Unavailable LUISA BEARD Attending Unavailable KESHINRO, AJARATU Referring Unavailable HOY, JUSTIN M Primary Care Unavailable DAO DIXON Referring Unavailable HOY, JUSTIN M Primary Care Unavailable DAO DIXON Referring Unavailable HOY, JUSTIN M Primary Care Unavailable KESHINRO, AJARATU Admitting Unavailable KESHINRO, AJARATU Attending Unavailable HOY, JUSTIN M Primary Care Unavailable DAO DIXON Admitting Unavailable DAO DIXON Attending Unavailable HOY, JUSTIN M Primary Care Unavailable Salbador LEE Attending Unavailable Justin Buckner MD Primary Care Provider [id number] Bang CONNELLY, Jairo Urrutia Emergency Provider [phone] Simba Mulligan MD Admit Provider Simba Mulligan MD Attending Provider Simba Mulligan MD Other Provider Surya Crowe DO Other Provider Toan Healy DO Attending Provider Simba Mulligan Attending Unavailab Simba Lawson Admitting Unavailab le Hoy, Justin M Primary Care Unavailable Surya Crowe Consulting Unavailable Damaris Chavarria DO Attending Provider HONG FERNANDEZ Attending Unavailable HOY, JUSTIN M Primary Care Unavailable ABHYANKAR, JOSE Referring Unavailable ABHYANKAR, JOSE Attending Unavailable HOY, JUSTIN M Primary Care Unavailable ABHYANKAR, JOSE Referring Unavailable HOY, JUSTIN M Primary Care Unavailable ABHYANKAR, JOSE Referring Unavailable HOY, JUSTIN M Primary Care Unavailable KEKINGRO, DAVIDARATU Attending Unavailable HOY, JUSTIN M Primary Care Unavailable ABHYANKAR, JOSE Attending Unavailable ABHYANKAR, JOSE Referring Unavailable HOY, JUSTIN M Primary Care Unavailable JUSTIN BUCKNER Primary Care Unavailable JAUN COFFEY Attending Unavailable JOSE WING Referring Unavailable JUSTIN BUCKNER Primary Care Unavailable JOSE WING Referring Unavailable Allergies Allergy Classification Reported Allergen(s) Allergy Type Date of Onset Reaction(s) Facility (3 sources) Pravastatin; Translations: [pravastatin] Drug Allergy 2 Muscle pain (finding) General [facility] [place] (20 sources) rosuvastatin; Translations: [ROSUVASTATIN] Drug Allergy 3 Myalgia [facility] (20 sources) HMG-CoA reductase inhibitor; Translations: [YKAOUQM-LCJ-BD A REDUCTASE INHIBITORS] Drug Allergy 2 Other: See Comments, Myalgia, Unknown [facility] (1 source) No Known Medication Allergies; Translations: [No Known Medication Allergies] Propensity to adverse reactions (disorder) [facility] Repository Medications Current Medications Medication Drug Class(es) Dates Sig (Normalized) Sig (Original) acetaminophen 500 mg oral tablet (10 sources) Start: 02-24-2024 End: 03-02-2024 take 2 tablets by mouth every six hours as needed acetaminophen (TYLENOL EXTRA STRENGTH) 500 mg tablet Take 2 tablets by mouth every 6 hours as needed for pain for up to 7 days. 56 tablet 0 02/24/2024 03/02/2024 Active Start: 01-03-2024 take 2 tablets by mo uth every six hours as needed acetaminophen (TYLENOL EXTRA STRENGTH) 500 mg tablet Take 2 tablets by mouth every 6 hours as needed for pain. 0 01/03/2024 Active amoxicillin 875 mg / clavulanate 125 mg oral tablet (4 sources) Penicillin-class Antibacterial Start: 10-18-2023 End: 10-25-2023 take 1 tablet by mouth twice daily amoxicillin-clavulanate potassium (AUGMENTIN) 875-125 mg per tablet Take 1 tablet by mouth two times a day for 7 days. 14 tablet 0 10/18/2023 10/25/2023 Active Comment on above: Take 1 tablet by mouth two times a day f or 7 days. aspirin 81 mg chewable tablet (2 sources) Platelet Aggregation Inhibitor, Nonsteroidal Anti-inflammatory Drug Start: 04-11-2025 take 1 tablet by mouth once daily Aspirin (Children's Aspirin) 81 mg Tablet,Chewable Active 81 MG PO Daily 0 April 11, 2025 12:00am Complies with drug therapy atorvastatin 20 mg oral tablet (2 sources) HMG-CoA Reductase Inhibitor Start: 04-11-2025 take 1 tablet by mouth once daily in the evening Atorvastatin 20 mg Tablet Active 20 MG PO Every evening 30 April 11, 2025 12:00am Complies with drug therapy collagen, hydrolysate, bovine, (COLLAGEN, HYDR, BOVINE,, BULK,) 100 % powd (20 sources) take 1 dose by mouth once daily collagen, hydrolysate, bovine, (COLLAGEN, HYDR, BOVINE,, BULK,) 100 % powd Take 1 Dose by mouth once daily. Active take 1 dose by mouth once daily collagen, hydrolysate, bovine, (COLLAGEN, HYDR, BOVINE,, BULK,) 100 % powd Take 1 Dose by mouth once daily. 0 Suspended take 1 dose by mouth once daily collagen, hydrolysate, bovine, (COLLAGEN, HYDR, BOVINE,, BULK,) 100 % powd Take 1 Dose by mouth once daily. 0 Active Comment on above: Take 1 Dose by mouth once daily. 0.4 ml enoxaparin sodium 100 mg/ml prefilled syringe (6 sources) Low Molecular Weight Heparin Start: 01-03-20 End: 01-25-20 inject 0.4 mL by subcutaneous injection once daily enoxaparin (LOVENOX) 40 mg/0.4 mL Inject 0.4 mL subcutaneously once daily for 21 days. 8.4 mL 0 01/03/2024 01/25/2024 Active enteric contrast (will be provided with radiology test) (20 sources) Start: 02-19-20 End: 02-20-20 enteric contrast (will be provided with radiology test) For CT CHESTABD/PEL W IVCON Routine order Administer, As Directed One Time Only, via Oral, Rectal, both Oral and Rectal, Enteric Tube, Stoma or Indwelling Catheter, Enteric Contrast as designated per enteric contrast guidelines 1 each 02/18/2025 02/19/2025 Active Start: 11-03-2024 End: 02-18-2025 enteric contrast (will be pr ovided with radiology test) Indications: Malignant neoplasm of sigmoid colon (HCC) , Thrombocytopenia , Fatty liver For CT CHESTABD/PEL W IVCON Routine order Administer, As Directed One Time Only, via Oral, Rectal, both Oral and Rectal, Enteric Tube, Stoma or Indwelling Catheter, Enteric Contrast as designated per enteric contrast guidelines 1 Each 11/03/2024 02/18/2025 Discontinued (Discontinued by Patient) Start: 11-03-[address] (will be provided with radiology test) Indications: Malignant neoplasm of sigmoid colon (HCC) , Thrombocytopenia , Fatty liver For CT CHESTABD/PEL W IVCON Routine order Administer, As Directed One Time Only, via Oral, Rectal, both Oral and Rectal, Enteric Tube, Stoma or Indwelling Catheter, Enteric Contrast as designated per enteric contrast guidelines 1 Each 11/03/2024 Active Start: 11-03-[address] (will be provided with radiology test) Indications: Malignant neoplasm of sigmoid colon (HCC) , Thrombocytopenia (HCC) , Fatty liver For CT CHESTABD/PEL W IVCON Routine order Administer, As Directed One Time Only, via Oral, Rectal, both Oral and Rectal, Enteric Tube, Stoma or Indwelling Catheter, Enteric Contrast as designated per enteric contrast guidelines 1 Each 11/03/2024 Active Start: 07-14-2024 End: 11-03-2024 enteric contrast (will be pr ovided with radiology test) For CT CHESTABD/PEL W IVCON Routine order Administer, As Directed One Time Only, via Oral, Rectal, both Oral and Rectal, Enteric Tube, Stoma or Indwelling Catheter, Enteric Contrast as designated per enteric contrast guidelines 1 Each 07/14/2024 11/03/2024 Discontinued (Discontinued by Patient) Start: 07-14-[address] (will be provided with radiology test) For CT CHESTABD/PEL W IVCON Routine order Administer, As Directed One Time Only, via Oral, Rectal, both Oral and Rectal, Enteric Tube, Stoma or Indwelling Catheter, Enteric Contrast as designated per enteric contrast guidelines 1 Each 07/14/2024 Active Start: 10-24-2023 End: 07-14-2024 enteric contrast (will be pr ovided with radiology test) Indications: Malignant neoplasm of descending colon (HCC) For CT CHESTABD/PEL W IVCON Routine order Administer, As Directed One Time Only, via Oral, Rectal, both Oral and Rectal, Enteric Tube, Stoma or Indwelling Catheter, Enteric Contrast as designated per enteric contrast guidelines 1 Each 10/24/2023 07/14/2024 Discontinued Start: 10-24-[address] (will be provided with radiology test) Indications: Malignant neoplasm of descending colon (HCC) For CT CHESTABD/PEL W IVCON Routine order Administer, As Directed One Time Only, via Oral, Rectal, both Oral and Rectal, Enteric Tube, Stoma or Indwelling Catheter, Enteric Contrast as designated per enteric contrast guidelines 1 Each 10/24/2023 Active Start: 10-24-[address] (will be provided with radiology test) Indications: Malignant neoplasm of descending colon (HCC) For CT CHESTABD/PEL W IVCON Routine order Administer, As Directed One Time Only, via Oral, Rectal, both Oral and Rectal, Enteric Tube, Stoma or Indwelling Catheter, Enteric Contrast as designated per enteric contrast guidelines 1 Each 0 10/24/2023 Suspended Start: 10-24-[address] (will be provided with radiology test) Indications: [...] Each 0 06/25/2023 06/26/2023 Active Start: 06-05-2023 End: 09-14-2023 enteric contrast (will be pr ovided with radiology test) MRI RECTUM WO/W. Administer, As Directed One Time Only, via Oral, Rectal, both Oral and Rectal, Enteric Tube, Stoma or Indwelling Catheter, Enteric Contrast as designated per enteric contrast guidelines 1 Each 06/05/2023 09/14/2023 Discontinued (Erroneous entry) Start: 06-05-[address] (will be [...] Contrast as designated per enteric contrast guidelines Fish Oils (1 source) Start: 02-18-20 take 4 capsules by mouth once daily Fish Oil 1000 mg oral capsule 4,000 mg = 4 cap(s), Oral, Daily, Refills(s) 0 Start Date: 02/18/20 Status: Ordered hydrocortisone acetate 10 mg/ml / pramoxine hydrochloride 10 mg/ml rectal cream (20 sources) Corticosteroid Start: 05-04-20 apply 1 g rectal route every twelve hours as needed Pramoxine-Hydroco rtisone (ANALPRAM-HC) 1-1 % rectal cream 1 g by RECTAL route two times a day as needed (rectal discomfort). 05/04/2023 Active Comment on above: Refill(s) 0, as directed 1 g by RECTAL route two times a day as needed (rectal discomfort). ibuprofen 400 mg oral tablet (20 sources) Nonsteroidal Anti-inflammatory Drug Start: 02-25-20 End: 03-03-20 24 take 1 tablet by mouth every eight hours ibuprofen (MOTRIN) 400 mg tablet Take 1 tablet by mouth every 8 hours for 7 days. Patient should start on February 25, 2024. 21 tablet 0 02/25/2024 03/03/2024 Active Start: 01-03-2024 take 2 tablets by [facility] every six hours ibuprofen (MOTRIN) 200 mg tablet Take 2 tablets by mouth every 6 hours. 01/03/2024 Active iron glycinate,polysacch cmp lx (IRON BIS GLYCIN-FE P-SAC CMPLX ORAL) (20 sources) take 20 mg by mouth once daily iron glycinate,polysacch cmplx (IRON BIS GLYCIN-FE P-SAC CMPLX ORAL) Take 20 mg by mouth once daily. Active take 20 mg by mouth once daily i rayary glycinate,polysacch cmplx (IRON BIS GLYCIN- FE P-SAC CMPLX ORAL) Take 20 mg by mouth once daily. 0 Suspended take 20 mg by mouth once daily i rayray glycinate,polysacch cmplx (IRON BIS GLYCIN- FE P-SAC CMPLX ORAL) Take 20 mg by mouth once daily. 0 Active Comment on above: Take 20 mg by mouth once daily. iv contrast (will be provided with radiology test) (20 sources) Start: 02-18-2025 End: 02-19-2025 iv contrast (will be provided with radiology [...] the CT contrast administration guidelines link. 1 each 02/18/2025 02/19/2025 Active Start: 02-18-2025 End: 02-18-2025 iv contrast (will be provide d with radiology test) CT Chest ABD/PEL-Inject, intravenously, [...] the CT contrast administration guidelines link. 1 each 02/18/2025 02/18/2025 Discontinued Start: 11-03-2024 End: 02-18-2025 iv contrast (will be provide d with radiology test) Indications: Malignant neoplasm of sigmoid colon (HCC) , Thrombocytopenia , Fatty liver CT Chest ABD/PEL-Inject, intravenously, once for 1 [...] CT contrast administration guidelines link. 1 Each 11/03/2024 02/18/2025 Discontinued (Discontinued by Patient) Start: 11-03-2024 iv contrast (w ill be provided with radiology test) Indications: Malignant neoplasm of sigmoid colon (HCC) , Thrombocytopenia , Fatty liver CT Chest ABD/PEL-Inject, intravenously, once for 1 [...] CT contrast administration guidelines link. 1 Each 11/03/2024 Active Start: 11-03-2024 iv contrast (w ill be provided with radiology test) Indications: Malignant neoplasm of sigmoid colon (HCC) , Thrombocytopenia (HCC) , Fatty liver CT Chest ABD/PEL-Inject, intravenously, once for 1 [...] CT contrast administration guidelines link. 1 Each 11/03/2024 Active Start: 07-14-2024 End: 11-03-2024 iv contrast (will be provide d with radiology test) CT Chest ABD/PEL-Inject, intravenously, [...] CT contrast administration guidelines link. 1 Each 07/14/2024 11/03/2024 Discontinued (Discontinued by Patient) Start: 07-14-2024 iv contrast (w ill be provided with radiology test) CT Chest [...] CT contrast administration guidelines link. 1 Each 07/14/2024 Active Start: 10-24-2023 End: 07-14-2024 iv contrast (will be provide d with [...] CT contrast administration guidelines link. 1 Each 10/24/2023 07/14/2024 Discontinued Start: 10-24-2023 iv contrast (w ill be provided with radiology test) Indications: Malignant [...] CT contrast administration guidelines link. 1 Each 10/24/2023 Active Start: 10-24-2023 iv contrast (w ill be provided with radiology test) Indications: Malignant [...] administration guidelines link. 1 Each 0 10/24/2023 Suspended Start: 10-24-2023 iv contrast (w ill be provided with radiology test) Indications: Malignant [...] Each 0 06/25/2023 06/26/2023 Active Start: 06-05-2023 End: 09-14-2023 iv contrast (will be provide d with radiology test) MRI Rectum Inject, intravenously, [...] MR contrast administration guidelines link. 1 Each 06/05/2023 09/14/2023 Discontinued (Erroneous entry) Start: 06-05-2023 iv contrast (w ill be [...] take 1 tablet by mouth once daily Levothyroxine 50 mcg tablet Active 50 MCG PO Daily April 10, 2025 12:00am Complies with drug therapy Start: 05-04-2023 take 1 tablet by titi th once daily levothyroxine 50 mcg (0.05 mg) Tab 50 mcg = 1 tab(s), Oral, Daily, Refills(s) 0 Start Date: 05/04/23 Status: Ordered Comment on above: Take 50 mcg by mouth once daily. Elizabeth 5-Hgk-Jai-Fish Oil (Fish Oil) 60-90-500 mg capsule (1 source) Start: 05-27-2025 take 1 capsule by mouth once daily Elizabeth 1-Acl-Mae-Fish Oil (Fish Oil) 60-90-500 mg capsule Active 1 CAP PO Daily May 27, 2025 12:00am Complies with drug therapy omega 6-gqw-mhb-fish oil 120-180-500 mg cap (20 sources) Start: 02-18-2020 take 1 capsule by mouth once daily omega 6-bhq-ljx-fish oil 120-180-500 mg cap Take 500 mg by mouth once daily. 02/18/2020 Active Start: 02-18-2020 take 1 capsule by mo uth once daily omega 7-lyl-mdd-fish oil 120-180-500 mg cap Take 500 mg by mouth once daily. 0 02/18/2020 Suspended Start: 02-18-2020 take 1 capsule by mo uth once daily omega 8-yxv-rmv-fish oil 120-180-500 mg cap Take 500 mg by mouth once daily. 0 02/18/2020 Active Comment on above: Take 500 mg by mouth once daily. oxyCODONE hydrochloride 5 mg oral tablet (3 sources) Opioid Agonist Start: 02-24-2024 End: 02-29-2024 take 1 tablet by mouth every six hours as needed oxyCODONE IR (ROXICODONE) 5 mg immediate release tablet Indications: Post-op pain Take 1 to 2 tablets by mouth every 6 hours as needed for up to 5 days. 20 tablet 0 02/24/2024 02/29/2024 Active Start: 01-03-2024 End: 01-11-2024 take 1 tablet by mouth every six hours as needed for pain oxyCODONE IR (ROXICODONE) 5 mg immediate release tablet Indications: Postoperative pain Take 1 tablet by mouth every 6 hours as needed for pain for up to 25 doses. 25 tablet 0 01/03/2024 01/11/2024 semaglutide (3 sources) Start: 04-10-2025 semaglutide Ac tive SUBCUT every week April 10, 2025 12:00am Complies with drug therapy Start: 04-10-2025 Completed/Discontinued Medications Medication Drug Class(es) Dates Sig (Normalized) Sig (Original) Acetaminophen / diphenhydrAMINE (20 sources) Histamine-1 Receptor Antagonist End: 01-19-2024 acetaminophen/diph enhydramine (TYLENOL PM ORAL) Take 1 Dose by mouth as needed. 01/19/2024 Discontinued acetaminophen/di phenhydramine (TYLENOL PM ORAL) Take 1 Dose by mouth as needed. 0 Suspended acetaminophen/di phenhydramine (TYLENOL PM ORAL) Take 1 Dose by [...] 500 mg by mouth once daily. Ascorbic Proo-Ypqqwxlyx-Zmp (EMERGEN-C) 1,000 mg pwep (20 sources) End: 07-14-2024 take 1 dose by mouth once daily Ascorbic Tiww-Rhuqroohq-Pip (EMERGEN-C) 1,000 mg pwep Take 1 Packet by mouth once daily. 07/14/2024 Discontinued take 1 dose by mouth once daily Ascorbic Dsha-Xskzzmdlq-Yaz (EMERGEN-C) 1,000 mg pwep Take 1 Packet by mouth once daily. Active take 1 dose by mouth once daily Ascorbic Hsxl-Vecwmisss-Khc (EMERGEN-C) 1,000 mg pwep Take 1 Packet by mouth once daily. 0 Suspended take 1 dose by mouth once daily Ascorbic Artg-Bbskbpkxj-Htd (EMERGEN-C) 1,000 mg pwep Take 1 Packet by mouth once daily. 0 Active Comment on above: Take 1 Packet by itti th once daily. ferrous sulfate (6 sources) End: 08-21-2023 take [...] acid 1 mg oral tablet (20 sources) End: take 1 tablet by mouth once daily folic acid 1 mg tablet Take 1 mg by mouth once daily. 0 01/30/2024 Discontinued Comment on above: Take 1 mg by mouth o nce daily. gabapentin 300 mg oral capsule (8 sources) Anti-epileptic Agent Start: End: take 1 capsule by mouth every eight hours gabapentin (NEURONTIN) 300 mg capsule Take 1 capsule by mouth every 8 hours for 10 doses. 10 capsule 02/24/2024 07/14/2024 Discontinued lactobacillus rhamnosus gg [id number] unt oral capsule (17 sources) Start: End: take 1 capsule by mouth once daily lactobacillus rhamnosus (CULTURELLE) 10 billion cell capsule Take 1 capsule by mouth once daily. 30 capsule 01/04/2024 07/14/2024 Discontinued loperamide hydrochloride 2 mg oral capsule (17 sources) Opioid Agonist Start: End: take 2 capsules by mouth three times daily before mealtime loperamide (IMODIUM) 2 mg cap(s) Take 2 capsules by mouth three times a day before meals. 90 capsule 1 01/19/2024 07/14/2024 Discontinued metroNIDAZOLE 500 mg oral tablet (3 sources) Nitroimidazole Antimicrobial Start: End: take 1 tablet by mouth in the evening metroNIDAZOLE (FLAGYL) 500 mg tablet Indications: Malignant neoplasm of sigmoid colon (HCC) Take 1 tablet by mouth as directed. Take 1 tablet at 6 pm, another at 7 pm and again at 11 pm, the evening prior to surgery 3 tablet 0 11/28/2023 01/03/2024 Discontinued Comment on above: Take 1 tablet by titi as directed. Take 1 tablet at 6 pm, another at 7 pm and again at 11 pm, the evening prior to surgery neomycin sulfate 500 mg oral tablet (8 sources) Aminoglycoside Antibacterial Start: take 2 tablets by mouth in the evening neomycin 500 mg tablet Indications: Malignant neoplasm of sigmoid colon (HCC) Take 2 tablets by mouth as directed. Take 2 tablets at 6 pm, again at 7 pm and at 11 pm the evening prior to surgery 6 tablet 0 11/28/2023 Suspended Comment on above: Take 2 tablets by mo [facility] as directed. Take 2 tablets at 6 pm, again at 7 pm and at 11 pm the evening prior to surgery Dpiwj-5-JKP-EPA-Fish Oil (FISH OIL) 1,000 mg (120 mg-180 mg) cap (18 sources) Start: Jjpgp-5-EZW-EPA-Fish Oil (FISH OIL) 1,000 mg (120 mg-180 mg) cap Take 4,000 mg by mouth. 0 02/18/2020 Active Comment on above: Take 4,000 mg by titi . ondansetron 4 mg oral tablet (20 sources) Serotonin-3 Receptor Antagonist Start: 024 take 1 tablet by mouth every eight hours as needed ondansetron (ZOFRAN) 4 mg tablet Take 1 tablet by mouth every 8 hours as needed for nausea/vomiting for up to 15 doses. 15 tablet 0 01/03/2024 Suspended Start: 08-14-2023 End: 11-03-2024 take 1 tablet by mouth every eight hours as needed ondansetron (ZOFRAN) 8 mg tablet Take 1 tablet by mouth every 8 hours as needed for nausea/vomiting. 90 tablet 1 08/14/2023 11/03/2024 Discontinued (Discontinued by Patient) Comment on above: Take 1 tablet by titi th every 8 hours as needed for nausea/vomiting. prochlorperazine 10 mg oral tablet (20 sources) Phenothiazine Start: 2022 End: 2024 take 1 tablet by mouth every six hours as needed prochlorperazine (COMPAZINE) 10 mg tablet Take 1 tablet by mouth every 6 hours as needed. 100 tablet 1 08/14/2023 02/18/2025 Discontinued Comment on above: Take 1 tablet by titi th every 6 hours as needed. vitamin b12 1 mg oral capsule (2 sources) Vitamin B12 Start: 2024 End: 2024 take 1 capsule by mouth once daily Cyanocobalamin (Vitamin B-12) 1,000 mcg capsule Discontinued 1000 MCG PO Daily April 11, 2025 12:00am May 27, 2025 11:13am Problems Active Problems Problem Classification Problem Date Documented Da te Episodic/Chronic Abdominal hernia (1 source) Hiatal hernia 02-18-2020 Episodic Cancer of colon (20 sources) Malignant tumor of sigmoid colon; Translations: [Malignant neoplasm of sigmoid colon] Onset: 3 06-25-2023 Chronic Cancer of colon (8 sources) History of malignant neoplasm of colon; Translations: [Personal history of other malignant neoplasm of large intestine] Onset: 4 06-19-2024 Episodic Cancer of rectum and anus (20 sources) Malignant tumor of rectum; Translations: [Malignant neoplasm of rectum] Onset: 3 06-08-2023 Chronic Coagulation and hemorrhagic disorders (7 sources) Thrombocytopenic disorder; Translations: [Thrombocytopenia, unspecified] Onset: 5 11-03-2024 Chronic Deficiency and other anemia (3 sources) Iron deficiency anemia due to blood loss; Translations: [Iron deficiency anemia secondary to blood loss (chronic)] 06-29-2023 Chronic Disorders of lipid metabolism (20 sources) Hyperlipidemia; Translations: [Hyperlipidemia, unspecified] Onset: 2 02-18-2020 Chronic Diverticulosis and diverticulitis (1 source) Diverticulitis of colon 02-18-2020 Chronic Essential hypertension (20 sources) Hypertensive disorder; Translations: [Essential (primary) hypertension] Onset: 3 08-10-2023 Chronic Fluid and electrolyte disorders (2 sources) Hyponatremia; Translations: [Hypo-osmolality and hyponatremia] Onset: 4 01-29-2024 Episodic Gastrointestinal hemorrhage (2 sources) Hemorrhage of rectum and anus; Translations: [Hemorrhage of anus and rectum] Onset: 3 Episodic Hemorrhoids (1 source) Hemorrhoids 02-18-2020 Episodic Hypertension with complications and secondary hypertension (4 sources) Hypertensive heart disease without heart failure; Translations: [HTN HEART DISEASE W/O HEART FAIL] Onset: 2 Chronic Nutritional deficiencies (2 sources) Deficiency of other specified B group vitamins; Translations: [Cobalamin deficiency] Onset: 5 04-11-2025 Episodic Other aftercare (2 sources) Surgical follow-up; Translations: [Encounter for follow-up examination after completed treatment for conditions other than malignant neoplasm] 01-17-2024 Episodic Other and unspecified benign neoplasm (2 sources) History of polyp of colon; Translations: [Personal history of colonic polyps] Onset: 3 Episodic Other and unspecified benign neoplasm (1 source) Hyperplastic polyp of large intestine 02-18-2020 Episodic Other gastrointestinal disorders (1 source) Irritable bowel syndrome 02-18-2020 Chronic Other gastrointestinal disorders (20 sources) Ileostomy present; Translations: [Ileostomy status] Onset: 4 12-29-2023 Chronic Other gastrointestinal disorders (3 sources) Encounter for attention to ileostomy; Translations: [Attention to ileostomy (HCC)] Onset: 4 Chronic Other gastrointestinal disorders (2 sources) Ileostomy status; Translations: [Ileostomy present (HCC)] Onset: 4 Chronic Other gastrointestinal disorders (2 sources) Altered bowel function; Translations: [Change in bowel habit] Onset: 3 Episodic Other gastrointestinal disorders (1 source) H/O: gallstones 02-18-2020 Episodic Other liver diseases (2 sources) Fatty (change of) liver, not elsewhere classified; Translations: [FATTY CHANGE LIVER NEC] Onset: 2 Chronic Other liver diseases (6 sources) Steatosis of liver; Translations: [Fatty (change of) liver, not elsewhere classified] 11-03-2024 Chronic Other lower respiratory disease (3 sources) Nodule of lung; Translations: [Solitary pulmonary nodule] 08-13-2023 Episodic Other nutritional; endocrine; and metabolic disorders (2 sources) Body mass index 30+ - obesity; Translations: [Obesity, unspecified] 05-08-2023 Chronic Other nutritional; endocrine; and metabolic disorders (20 sources) Morbid obesity; Translations: [Morbid (severe) obesity due to excess calories] Onset: 3 05-08-2023 Chronic Other nutritional; endocrine; and metabolic disorders (20 sources) Obesity; Translations: [Obesity, unspecified] Onset: 3 08-10-2023 Chronic Other nutritional; endocrine; and metabolic disorders (1 source) Obesity, unspecified; Translations: [Obesity (BMI 30-39.9)] Onset: 4 Chronic Other screening for suspected conditions (not mental disorders or infectious disease) (5 sources) Encounter for screening mammogram for malignant neoplasm of breast; Translations: [Stool DNA-based colorectal cancer screening positive] Onset: 3 Episodic Residual codes; unclassified (1 source) Family history of malignant neoplasm of breast; Translations: [FAMILY HX MALIG NEOPLASM OF BREAST] Onset: 3 Episodic Residual codes; unclassified (1 source) Family history of cancer of colon; Translations: [Family history of malignant neoplasm of digestive organs] 08-21-2023 Episodic Residual codes; unclassified (1 source) Family history of malignant neoplasm of brain; Translations: [Family history of malignant neoplasm of other organs or systems] 08-21-2023 Episodic Thyroid disorders (20 sources) Hypothyroidism, unspecified; Translations: [Hypothyroidism] Onset: 2 Chronic Transient cerebral ischemia (9 sources) Transient cerebral ischemia; Translations: [Transient cerebral ischemic attack, unspecified] Onset: 5 04-10-2025 Chronic Unclassified (4 sources) Please call to schedule an appointment. Unclassified (2 sources) Office is currently closed. Please call on Sunday to schedule a 7 day post hospital appointment. Past or Other Problems Problem Classification Problem Date Documented Da te Episodic/Chronic Administrative/social admission (20 sources) Patient encounter status; Translations: [Other specified counseling] Onset: 12-29-2023 Resolved: 01-04-2024 12-29-2023 Episodic Allergic reactions (20 sources) Peristomal dermatitis; Translations: [Irritant contact dermatitis associated with fecal stoma] Onset: 01-19-2024 01-19-2024 Episodic Deficiency and other anemia (20 sources) Iron deficiency anemia; Translations: [Iron deficiency anemia, unspecified] Onset: 09-12-2023 09-12-2023 Episodic Deficiency and other anemia (1 source) Other iron deficiency anemias; Translations: [Other iron deficiency anemia] Onset: 09-12-2023 Episodic Lymphadenitis (1 source) Localized enlarged lymph nodes; Translations: [Lymphadenopathy, abdominal] Onset: 12-28-2023 Episodic Nausea and vomiting (20 sources) Postoperative nausea and vomiting; Translations: [Nausea with vomiting, unspecified] Onset: 08-13-2023 08-13-2023 Episodic Other gastrointestinal disorders (20 sources) Ileostomy bag changed; Translations: [Encounter for attention to ileostomy] Onset: 12-29-2023 Resolved: 01-04-2024 12-29-2023 Chronic Other liver diseases (1 source) Abnormal levels of other serum enzymes; Translations: [ABNORMAL LEVELS OTHER SERUM ENZYMES] Onset: 08-27-2022 Episodic Other lower respiratory disease (1 source) Solitary pulmonary nodule; Translations: [Lung nodule] Onset: 08-13-2023 Episodic Other nervous system disorders (20 sources) Postoperative pain ; Translations: [Other acute postprocedural pain] Onset: 01-03-2024 01-03-2024 Episodic Other nervous system disorders (2 sources) Other acute postprocedural pain; Translations: [Post-op pain] Onset: 01-03-2024 Episodic Other skin disorders (20 sources) Broken skin; Translations: [Other skin changes] Onset: 01-17-2024 01-17-2024 Episodic Other skin disorders (1 source) Other skin changes; Translations: [Skin irritation] Onset: 01-17-2024 Episodic Residual codes; unclassified (1 source) Other specified postprocedural states; Translations: [PONV (postoperative nausea and vomiting)] Onset: 08-13-2023 Episodic Residual codes; unclassified (1 source) Artificial opening status, unspecified; Translations: [History of creation of ostomy (HCC)] Onset: 01-17-2024 Episodic Results Test Name Value Interpretation Reference Range Facility Office Visiton 05-26-2025 Follow-up visit [id number] Roberto Sue 1960 F Date Provider Department Center 05/26/2025 Denis-HONG FERNANDEZ CARD [facility] Family History Problem Relation Age of Onset Stroke Mother Other Father Hypertension Sister Atrial fibrillation Sister Sleep apnea Brother Atrial fibrillation Brother Family Status - Relation Status Age at Mother Father Sister Brother Level of Service:27996 ID OFFICE/OUTPATIENT ESTABLISHED MOD MDM 30 MIN Reason for Visit and Comments: Hyperlipidemia [182] - Recently started on atorvastatin. She's taking it every other day and tolerating that, minimal myalgias. Transient Ischemic Attack [993658] - Recent TIA, treated at [facility]. All workup was normal. Denies recurrent stroke-like symptoms. Normal [facility] A1C with Estimated Average G malvin 04-11-2025 Glucose [Mass/Vol] 108 mg/dL Normal [facility] Comment on above: Result Comment: PERF ORMED BY: [facility] [address] [place] [address] PATHOLOGIST REST ROOM MATRON JIM OLVERA M.D. Performed By: #### P T, [id number], A1C WTH eA, MG, CMP, LIPID, TSH3 wRFLX, PTT, HS TROP, [id number], CBC ####[facility] [id number] [place] [address] [facility] HbA1c (Bld) [Mass fraction] 5.4 % Normal 4.3-5.6 [facility] Comment on above: Result Comment: Incr eased risk for diabetes: 5.7 - 6.4 diabetes: >6.4 glycemic control for adults with diabetes: <7.0 Performed By: #### P T, [id number], A1C WTH eA, MG, CMP, LIPID, TSH3 wRFLX, PTT, HS TROP, [id number], CBC ####[address] Complete Blood Count Auto Di ffon 04-11-2025 Basophils (Bld) [#/Vol] 0.0 10*3/uL Normal 0.0-0.2 [facility] Comment on above: Result Comment: PERF ORMED BY: [address] [place] [address] PATHOLOG[address] REST ROOM MATRON JIM OLVERA M.D. Performed By: #### P T, [id number], A1C WTH eA, MG, CMP, LIPID, TSH3 wRFLX, PTT, HS TROP, [id number], CBC ####[address] Basophils/100 WBC (Bld) 0.5 % Normal . [facility] Comment on above: Performed By: #### P T, [id number], A1C WTH eA, MG, CMP, LIPID, TSH3 wRFLX, PTT, HS TROP, [id number], CBC ####[address] Eosinophils (Bld) [#/Vol] 0.1 10*3/uL Normal 0.0-0.45 [facility] Comment on above: Performed By: #### P T, [id number], A1C WTH eA, MG, CMP, LIPID, TSH3 wRFLX, PTT, HS TROP, [id number], CBC ####[place] [address] [place] Eosinophils/100 WBC (Bld) 1.9 % Normal . [facility] Comment on above: Performed By: #### P T, [id number], A1C WTH eA, MG, CMP, LIPID, TSH3 wRFLX, PTT, HS TROP, [id number], CBC ####[address] Erythrocyte distribution width (RBC) [Ratio] 14.0 % Normal 11.9-15.3 [facility] Comment on above: Performed By: #### P T, [id number], A1C WTH eA, MG, CMP, LIPID, TSH3 wRFLX, PTT, HS TROP, [id number], CBC ####[address] Hematocrit (Bld) [Volume fraction] 37.2 % Normal 34.0-46.4 [facility] Comment on above: Performed By: #### P T, [id number], A1C WTH eA, MG, CMP, LIPID, TSH3 wRFLX, PTT, HS TROP, [id number], CBC ####[address] Hemoglobin (Bld) [Mass/Vol] 12.6 g/dL Normal 11.8-15.4 [facility] Comment on above: Performed By: #### P T, [id number], A1C WTH eA, MG, CMP, LIPID, TSH3 wRFLX, PTT, HS TROP, [id number], CBC ####[address] Lymphocytes (Bld) [#/Vol] 2.2 10*3/uL Normal 1.00-4.8 [facility] Comment on above: Performed By: #### P T, [id number], A1C WTH eA, MG, CMP, LIPID, TSH3 wRFLX, PTT, HS TROP, [id number], CBC ####[address] Lymphocytes/100 WBC (Bld) 47.0 % Normal . [facility] Comment on above: Performed By: #### P T, [id number], A1C WTH eA, MG, CMP, LIPID, TSH3 wRFLX, PTT, HS TROP, [id number], CBC ####[address] MCH (RBC) [Entitic mass] 30.0 pg Normal 24.7-34.3 [facility] Comment on above: Performed By: #### P T, [id number], A1C WTH eA, MG, CMP, LIPID, TSH3 wRFLX, PTT, HS TROP, [id number], CBC ####[address] MCV (RBC) [Entitic vol] 88.4 fL Normal 80-100 [facility] Comment on above: Performed By: #### P T, [id number], A1C WTH eA, MG, CMP, LIPID, TSH3 wRFLX, PTT, HS TROP, [id number], CBC ####[address] Mean Corpuscular HGB Conc 33.9 g/dL Normal 32.0-35.0 [facility] Comment on above: Performed By: #### P T, [id number], A1C WTH eA, MG, CMP, LIPID, TSH3 wRFLX, PTT, HS TROP, [id number], CBC ####[address] Monocytes (Bld) [#/Vol] 0.2 10*3/uL Normal 0.0-0.8 [facility] Comment on above: Performed By: #### P T, [id number], A1C WTH eA, MG, CMP, LIPID, TSH3 wRFLX, PTT, HS TROP, [id number], CBC ####[address] Monocytes/100 WBC (Bld) 4.9 % Normal . [facility] Comment on above: Performed By: #### P T, [id number], A1C WTH eA, MG, CMP, LIPID, TSH3 wRFLX, PTT, HS TROP, [id number], CBC ####[address] Neutrophils (Bld) [#/Vol] 2.2 10*3/uL Normal 1.8-7.7 [facility] Comment on above: Performed By: #### P T, [id number], A1C WTH eA, MG, CMP, LIPID, TSH3 wRFLX, PTT, HS TROP, [id number], CBC ####[address] Neutrophils/100 WBC (Bld) 45.7 % Normal . [facility] Comment on above: Performed By: #### P T, [id number], A1C WTH eA, MG, CMP, LIPID, TSH3 wRFLX, PTT, HS TROP, [id number], CBC ####[address] NRBC% 0.4 /100{WBC} Normal 0-0.5 [facility] Comment on above: Performed By: #### P T, [id number], A1C WTH eA, MG, CMP, LIPID, TSH3 wRFLX, PTT, HS TROP, [id number], CBC ####[address] Platelet mean volume (Bld) [Entitic vol] 9.6 fL Normal 6.3-10.7 [facility] Comment on above: Performed By: #### P T, [id number], A1C WTH eA, MG, CMP, LIPID, TSH3 wRFLX, PTT, HS TROP, [id number], CBC ####[address] Platelets (Bld) [#/Vol] 122 10*3/uL Low 150-450 [facility] Comment on above: Performed By: #### P T, [id number], A1C WTH eA, MG, CMP, LIPID, TSH3 wRFLX, PTT, HS TROP, [id number], CBC ####[address] RBC (Bld) [#/Vol] 4.22 10*6/uL Normal 3.60-5.00 [facility] Comment on above: Performed By: #### P T, [id number], A1C WTH eA, MG, CMP, LIPID, TSH3 wRFLX, PTT, HS TROP, [id number], CBC ####[address] WBC (Bld) [#/Vol] 4.8 10*3/uL Normal 3.8-11.6 [facility] Comment on above: Performed By: #### P T, [id number], A1C WTH eA, MG, CMP, LIPID, TSH3 wRFLX, PTT, HS TROP, [id number], CBC ####[address] White Blood Count 4.8 [CFU]/mL Normal 3.8-11.6 [facility] Comment on above: Performed By: #### P T, [id number], A1C WTH eA, MG, CMP, LIPID, TSH3 wRFLX, PTT, HS TROP, [id number], CBC ####[address] Comprehensive Metabolic Pane luna 04-11-2025 Albumin [Mass/Vol] 3.9 g/dL Normal 3.5-5.7 [facility] Comment on above: Order Comment: FASTI NG Y Performed By: #### P T, [id number], A1C WTH eA, MG, CMP, LIPID, TSH3 wRFLX, PTT, HS TROP, [id number], CBC ####[address] Albumin/Globulin [Mass ratio] 1.6 {ratio} Normal [facility] Comment on above: Order Comment: FASTI NG Y Performed By: #### P T, [id number], A1C WTH eA, MG, CMP, LIPID, TSH3 wRFLX, PTT, HS TROP, [id number], CBC ####[place] [id number] [facility] ALP [Catalytic activity/Vol] 54 U/L Normal 34-104 [facility] Comment on above: Order Comment: FASTI NG Y Performed By: #### P T, [id number], A1C WTH eA, MG, CMP, LIPID, TSH3 wRFLX, PTT, HS TROP, [id number], CBC ####[place] [id number] [facility] ALT [Catalytic activity/Vol] 15 U/L Normal 7-52 [facility] Comment on above: Order Comment: FASTI NG Y Performed By: #### P T, [id number], A1C WTH eA, MG, CMP, LIPID, TSH3 wRFLX, PTT, HS TROP, [id number], CBC ####[place] [id number] [facility] Anion gap [Moles/Vol] 10.8 mmol/L Normal 6.0-15.0 [facility] Comment on above: Order Comment: FASTI NG Y Performed By: #### P T, [id number], A1C WTH eA, MG, CMP, LIPID, TSH3 wRFLX, PTT, HS TROP, [id number], CBC ####[address] AST [Catalytic activity/Vol] 17 U/L Normal 13-39 [facility] Comment on above: Order Comment: FASTI NG Y Performed By: #### P T, [id number], A1C WTH eA, MG, CMP, LIPID, TSH3 wRFLX, PTT, HS TROP, [id number], CBC ####[place] [id number] [facility] Bilirubin [Mass/Vol] 0.6 mg/dL Normal 0.3-1.0 [facility] Comment on above: Order Comment: FASTI NG Y Performed By: #### P T, [id number], A1C WTH eA, MG, CMP, LIPID, TSH3 wRFLX, PTT, HS TROP, [id number], CBC ####[place] [id number] [facility] Calcium [Mass/Vol] 9.1 mg/dL Normal 8.6-10.3 [facility] Comment on above: Order Comment: FASTI NG Y Performed By: #### P T, [id number], A1C WTH eA, MG, CMP, LIPID, TSH3 wRFLX, PTT, HS TROP, [id number], CBC ####[address] Chloride [Moles/Vol] 105 mmol/L Normal 98-107 [facility] Comment on above: Order Comment: FASTI NG Y Performed By: #### P T, [id number], A1C WTH eA, MG, CMP, LIPID, TSH3 wRFLX, PTT, HS TROP, [id number], CBC ####[address] CO2 [Moles/Vol] 26.9 mmol/L Normal 21.0-31.0 [facility] Comment on above: Order Comment: FASTI NG Y Performed By: #### P T, [id number], A1C WTH eA, MG, CMP, LIPID, TSH3 wRFLX, PTT, HS TROP, [id number], CBC ####[address] Creatinine [Mass/Vol] 0.92 mg/dL Normal 0.60-1.20 [facility] Comment on above: Order Comment: FASTI NG Y Performed By: #### P T, [id number], A1C WTH eA, MG, CMP, LIPID, TSH3 wRFLX, PTT, HS TROP, [id number], CBC ####[address] Creatinine Clr Calc Pharmacy 68.07 Normal [facility] Comment on above: Order Comment: FASTI NG Y Performed By: #### P T, [id number], A1C WTH eA, MG, CMP, LIPID, TSH3 wRFLX, PTT, HS TROP, [id number], CBC ####[address] GFR/1.73 sq M.predicted MDRD (S/P/Bld) [Vol rate/Area] mL/min/{1.73_m2} Normal [facility] Comment on above: Order Comment: FASTI NG Y Performed By: #### P T, [id number], A1C WTH eA, MG, CMP, LIPID, TSH3 wRFLX, PTT, HS TROP, [id number], CBC ####[place] [id number] Globulin (S) [Mass/Vol] 2.4 g/dL Normal [facility] Comment on above: Order Comment: FASTI NG Y Performed By: #### P T, [id number], A1C WTH eA, MG, CMP, LIPID, TSH3 wRFLX, PTT, HS TROP, [id number], CBC ####[address] Glucose [Mass/Vol] 83 mg/dL Normal 70-100 [facility] Comment on above: Order Comment: FASTI NG Y Result Comment: [facility] Glucose Reference Range is dependent on time and content of last meal. Glucose of more than 200 mg/dL in a nonstressed, ambulatory subject supports the diagnosis of Diabetes Mellitus. ADA recommended reference range Performed By: #### P T, [id number], A1C WTH eA, MG, CMP, LIPID, TSH3 wRFLX, PTT, HS TROP, [id number], CBC ####[address] Potassium [Moles/Vol] 3.7 mmol/L Normal 3.5-5.1 [facility] Comment on above: Order Comment: FASTI NG Y Performed By: #### P T, [id number], A1C WTH eA, MG, CMP, LIPID, TSH3 wRFLX, PTT, HS TROP, [id number], CBC ####[place] [id number] [facility] Protein [Mass/Vol] 6.3 g/dL Low 6.4-8.9 [facility] Comment on above: Order Comment: FASTI NG Y Performed By: #### P T, [id number], A1C WTH eA, MG, CMP, LIPID, TSH3 wRFLX, PTT, HS TROP, [id number], CBC ####[facility] Sodium [Moles/Vol] 139 mmol/L Normal 136-145 [facility] Comment on above: Order Comment: FASTI NG Y Performed By: #### P T, [id number], A1C WTH eA, MG, CMP, LIPID, TSH3 wRFLX, PTT, HS TROP, [id number], CBC ####[place] [id number] [place] [id number] [facility] Urea nitrogen [Mass/Vol] 12 mg/dL Normal 7-25 [facility] Comment on above: Order Comment: FASTI NG Y Performed By: #### P T, [id number], A1C WTH eA, MG, CMP, LIPID, TSH3 wRFLX, PTT, HS TROP, [id number], CBC ####[place] [id number] [place] [address] [facility] ECH echo transthoracicon ECH echo transthoracic [facility] [address] Echocardiogram Signed Patient: Nancy Sue MR#: [id number] 36 : 1960 Acct:[id number] Age/Sex: 65 / F ADM Date: 04/10/25 Loc: Room: [address] [place] [address] Type: ADM INOo Attending Dr: Simba Mulligan MD Ordering Provider: Simba Mulligan MD Date of Service: 04/10/2510/04/1737 ECH/ECH echo transthoracic: Source of Emboli Copies to: MD Pineda Smith MD B 12:42 PM Patient Location: : 1960 Gender: Female (MM/DD/YYYY) Age: 65 Years Ordering Physician: Simba Mulligan Height: 65 in Weight: 206.573 lb Performed By: ANDRÉS Cordero BSA: 2.01 m2 BP: 125 / 87 mmHg HR: 84 bpm Reason For Study: Source of Emboli History: colon cancer + + Interpretation Summary Ejection Fraction = 65-70%. The left ventricular size and thickness are normal. No regional wall motion abnormalities noted. No left ventricular thrombus or mass is seen. There is no comparison study available. Procedure/Quality: A two-dimensional transthoracic echocardiogram with color flow, Doppler and injection of contrast agent Definity was performed. The study was technically fair in quality. Left Ventricle: The left ventricular size and thickness are normal. Ejection Fraction = 65-70%. Inadequate for diastolic assessment. No regional wall motion abnormalities noted. No left ventricular thrombus or mass is seen. Left Atrium: The left atrium appears normal in size. Right Atrium: The right atrium appears normal in size. Right Ventricle: The right ventricle is normal in size and function. Aortic Valve: The aortic valve is normal in structure. No hemodynamically significant valvular aortic stenosis. No aortic regurgitation is present. Mitral Valve: The mitral valve is moderately sclerotic. There is mild mitral annular calcification. No significant mitral valve stenosis. There is no mitral regurgitation noted. Tricuspid Valve: The tricuspid valve is normal in structure. No tricuspid regurgitation. Pulmonic Valve: The pulmonic valve is not well visualized. No significant pulmonic regurgitation. Arteries: The aortic root is normal size. Pericardium/Pleura: No pericardial effusion seen. IVC/Hepatic Veins: The inferior vena cava is normal in size, with a normal collapsibility index. MMode/2D Measurements Calculations IVSd (0.7-1.1 cm): 1.70 cm LVIDd (3.7-5.4 cm): 4.3 cm LVPWd (0.7-1.1 cm): 1.32 cm LVIDs (2.3-3.6 cm): 2.9 cm LA dimension (2.3-4.0 cm): 3.5 LVOT diam: 1.96 cm cm FS: 31.8 % LVOT area: 3.0 cm2 EDV(Teich): 81.1 ml Ao root area: 7.9 cm2 ESV(Teich): 32.3 ml Ao root diam (2.0-3.2 cm): 3.2 cm EF(Teich): 60.2 % asc Aorta Diam: 3.8 cm LA A2 area: 21.5 cm2 LA A4 area: 20.5 cm2 LA length (vol): 5.4 cm LA vol: 69.0 ml LA vol index: 34.4 ml/m2 Doppler Measurements Calculations E/E' med: 11.1 Ao V2 max: 147.7 cm/sec E/E' lat: 10.2 Ao max P.7 mmHg MV E max lizbeth: 85.4 cm/sec Ao mean P.7 mmHg MV A max lizbeth: 56.8 cm/sec Ao V2 mean: 114.8 cm/sec MV E/A: 1.50 Ao V2 VTI: 34.3 cm ALEC(I,D): 2.09 cm2 ALEC(V,D): 1.90 cm2 MV V2 VTI: 32.8 cm MV mean P.84 mmHg MV V2 mean: 39.8 cm/sec MV dec time: 0.27 sec MV dec slope: 310.8 cm/sec?? LV V1 max: 93.1 cm/sec LV V1 max P.5 mmHg LV V1 mean: 63.8 cm/sec LV V1 mean P.86 mmHg LV V1 VTI: 23.7 cm + + + + + -+ + : Electronically : : : : signed by: Pineda : : David : : : : Ese : : : : on: 04/11/2025, : : : : 5:50 PM : + -+ + Tech Comments No previous echo. Transcribed By: SCV Performed At: 04/11/25 1242 Signed By: Pineda Mulligan MD 04/11/25 1750 Normal [facility] Lipid Panelon 04-11-2025 Cholesterol [Mass/Vol] 176 mg/dL Normal 140-200 [facility] Comment on above: Order Comment: RELL Richards Result Comment: Chol less than 200 mg/dl low risk Chol 201-239 mg/dl borderline risk Chol 240 mg/dl and greater high risk Performed By: #### P T, [id number], A1C WTH eA, MG, CMP, LIPID, TSH3 wRFLX, PTT, HS TROP, [id number], CBC ####[facility] [id number] [place] [id number] [facility] Cholesterol in HDL [Mass/Vol] 37 mg/dL Normal 23-92 [facility] Comment on above: Order Comment: RELL Richards Result Comment: HDL CHOL ATP-III CLASSIFICATION Cardiovascular Risk HDL > or equal to 60 mg/dL LOW HDL < 40 mg/dL HIGH Performed By: #### P T, [id number], A1C WTH eA, MG, CMP, LIPID, TSH3 wRFLX, PTT, HS TROP, [id number], CBC ####[facility] [id number] [place] [address] [facility] Cholesterol.total/Chol esterol in HDL [Mass ratio] 4.8 {ratio} Normal <5.0 [facility] Comment on above: Order Comment: RELL Richards Performed By: #### P T, [id number], A1C WTH eA, MG, CMP, LIPID, TSH3 wRFLX, PTT, HS TROP, [id number], CBC ####[place] [id number] [address] LDL Cholesterol,Calculated 110 mg/dL High 0-100 [facility] Comment on above: Order Comment: FAST[place]in[place] BALLESTEROS Y Result Comment: LDL ATP III CLASSIFICATION LDL less than 100 mg/dL Optimal LDL 100-129 mg/dL Near or above optimal LDL 130-159 mg/dL Borderline high LDL 160-189 mg/dL High LDL greater than 189 mg/dL Very high Performed By: #### P T, [id number], A1C WTH eA, MG, CMP, LIPID, TSH3 wRFLX, PTT, HS TROP, [id number], CBC ####[place] [id number] [address] Triglyceride w/Reflex 143 mg/dL Normal 0-149 [facility] Comment on above: Order Comment: FASTI FAVIAN Y Result Comment: TRIG ATP III CLASSIFICATION TRIG less than 150 mg/dL Normal TRIG 150-199 mg/dL Borderline high TRIG 200-500 mg/dL High TRIG greater than 500 mg/dL Very high Standard traceable to the Center for Disease Conrtrol and Prevention (CDC) test method. Performed By: #### P T, [id number], A1C WTH eA, MG, CMP, LIPID, TSH3 wRFLX, PTT, HS TROP, [id number], CBC ####[address] VLDL CHOLESTEROL 28 mg/dL Normal [facility] Comment on above: Order Comment: FASTI NG Y Performed By: #### P T, [id number], A1C WTH eA, MG, CMP, LIPID, TSH3 wRFLX, PTT, HS TROP, [id number], CBC ####[place] [id number] [place] [id number] [facility] Magnesiumon 04-11-2025 Magnesium [Mass/Vol] 2.1 mg/dL Normal 1.9-2.7 [facility] Comment on above: Order Comment: FASTI NG Y Performed By: #### P T, [id number], A1C WTH eA, MG, CMP, LIPID, TSH3 wRFLX, PTT, HS TROP, [id number], CBC ####[facility] [place] [address] [facility] Partial Thromboplastin Timeo n 04-11-2025 aPTT Coag (Bld) [Time] 30.5 s Normal 25.1-36.5 Th e [facility] Comment on above: Result Comment: A he matocrit value greater than 55% may lead to inaccurate results in coagulation testing. Patients having hematocrit values >55% require a special collection tube for coagulation studies. Please contact the laboratory at [phone] for redraw instructions. PERFORMED BY: [facility] [address] [place] [address] [address] MATRON JIM OLVERA M.D. Performed By: #### P T, [id number], A1C WTH eA, MG, CMP, LIPID, TSH3 wRFLX, PTT, HS TROP, [id number], CBC ####[place] [address] [place] [address] [facility] Prothrombin Time INRon 04-11 INR Coag (PPP) [Relative time] 1.1 {INR} Normal [facility] Comment on above: Result Comment: INR Therapeutic Range A) Pre- and Peroperative OAT started two weeks before surgery. NOT HIP SURGERY: 1.5 - 2.5 HIP SURGERY: 2 - 3 B) Primary and secondary prevention of venous THROMBOSIS: 2 - 3 C) Active venous thrombosis, pulmonary embolism and prevention of recurrent venous thrombosis: 2 - 3 D) Prevention of arterial thromboembolism including patients with mechanical heart valves: 3 - 4.5 Performed By: #### P T, [id number], A1C WTH eA, MG, CMP, LIPID, TSH3 wRFLX, PTT, HS TROP, [id number], CBC ####[place] [address] [place] [address] [facility] PT Coag (PPP) [Time] 12.1 s Normal 9.0-12.9 [facility] Comment on above: Result Comment: A he matocrit value greater than 55% may lead to inaccurate results in coagulation testing. Patients having hematocrit values >55% require a special collection tube for coagulation studies. Please contact the laboratory at [phone] for redraw instructions. Performed By: #### P T, [id number], A1C WTH eA, MG, CMP, LIPID, TSH3 wRFLX, PTT, HS TROP, [id number], CBC ####[facility] [place] [address] [facility] Thyroid Stim Hormone w/Rflxo n 04-11-2025 Thyroid Stim Hormone w/Rflx 2.06 u[iU]/mL Normal 0.45-5.33 [facility] Comment on above: Order Comment: FASTI NG Y Performed By: #### P T, [id number], A1C WTH eA, MG, CMP, LIPID, TSH3 wRFLX, PTT, HS TROP, [id number], CBC ####[place] [address] [place] [address] [facility] Troponin I High Sensitivityo n 04-11-2025 Troponin I High Sensitivity <3 Normal 0-15 [facility] Comment on above: Result Comment: The Troponin units of report have been changed to meet the Chest Pain Accreditation requirement, element EC5.M1l2. Troponin units are changed from pg/ml to ng/L. Also, the decimal is removed and results are in whole numbers. PERFORMED BY: [facility] [address] [place] [id number] PATHOLOGIST REST ROOM MATRON JIM OLVERA M.D. Performed By: #### P T, [id number], A1C WTH eA, MG, CMP, LIPID, TSH3 wRFLX, PTT, HS TROP, [id number], CBC ####[place] [address] [place] [address] [facility] Vit. B12/Folate Profileon Cobalamin (Vitamin B12) [Mass/Vol] 228 pg/mL Normal 180-914 [facility] Comment on above: Order Comment: FASTI NG Y Performed By: #### P T, [id number], A1C WTH eA, MG, CMP, LIPID, TSH3 wRFLX, PTT, HS TROP, [id number], CBC ####[place] [address] [place] [address] [facility] Folate 10.5 ng/mL Normal >5.9 [facility] Comment on above: Order Comment: FASTI NG Y Result Comment: Gemini te reference range: >5.9 ng/ml The WHO technical consultation on folate and vitamin b12 deficiencies has determined that folate concentrations less than 4 ng/ml are considered deficient. Performed By: #### P T, [id number], A1C WTH eA, MG, CMP, LIPID, TSH3 wRFLX, PTT, HS TROP, [id number], CBC ####[place] [address] [place] [address] [facility] Vitamin D 25 Hydroxy Totalon 04-11-2025 Vitamin D 25 Hydroxy Total 27.9 ng/mL Low 30-100 [facility] Comment on above: Order Comment: FASTI NG Y Result Comment: RAYO MIN D STATUS 25(OH)VITAMIN D RANGE (ng/mL) Deficient <20 Insufficient 20 to <30 Sufficient 30 to 100 Reference: Joseph MF,Cyndi NC, Marilin NORIEGA, et al. Evaluation,treatment, and prevention of vitamin D deficiency; an Endocrine Society clinical practice guideline. JCEM. 2010; 96(7):1911-30. PERFORMED BY: [facility] [address] [place] [address] PATH[address] MATRON JIM OLVERA M.D. Performed By: #### P T, [id number], A1C WTH eA, MG, CMP, LIPID, TSH3 wRFLX, PTT, HS TROP, [id number], CBC ####[address] [address] [facility] Appearance of UrineOrdered B y: Jairo Cuenca on 04-10-2025 Appearance (U) Clear Normal Clear [facility] Comment on above: Order Comment: Name Collection Type:: Clean-Voided Midstream Performed By: #### A DDONUAKITTY, CUU ####[address] [address] [facility] Bacteria [Presence] in Urine by AutomatedOrdered By: Jairo Cuenca on 04-10-2025 Bacteria Auto Ql (U) None seen [HPF] None Seen [facility] Basic Metabolic Panelon 08 Creatinine Clr Calc Pharmacy 60.24 Normal [facility] Comment on above: Result Comment: PERF ORMED BY: [place] [address] PATHOLOG[address] ROOM MATRON JIM OLVERA M.D. Performed By: #### C BC, BMP, PTT, HS TROP, PT, CK ####[address] GFR/1.73 sq M.predicted MDRD (S/P/Bld) [Vol rate/Area] 58.600 mL/min/{1.73_m2} Normal [facility] Comment on above: Performed By: #### C BC, BMP, PTT, HS TROP, PT, CK ####[address] Basophils [#/volume] in Bloo d by Automated countOrdered By: Jairo Cuenca on 04-10-2025 Basophils (Bld) [#/Vol] 0.0 10*3/uL Normal 0.0-0.2 [facility] Comment on above: Result Comment: PERF ORMED BY: [place] [address] PATH[address] MATRON JIM OLVERA M.D. Performed By: #### C BC, BMP, PTT, HS TROP, PT, CK #### [facility] [address] [place] [address] [place] Basophils/100 leukocytes in Blood by Automated countOrdered By: Jairo Cuenca on 04-10-2025 Basophils/100 WBC (Bld) 0.8 % Normal . [facility] Comment on above: Performed By: #### C BC, BMP, PTT, HS TROP, PT, CK #### [facility] [address] [place] [address] Bilirubin Test strip Ql (U)O rdered By: Jairo Cuenca on 04-10-2025 Bilirubin Ql (U) Negative Negative [facility] CT angio neckon 04-10-2025 CT angio neck [facility] [address] [place] [address] [place] [address] CT Scan Report Signed Patient: Nancy Sue MR#: [id number] 35 : 1960 Acct:[id number] Age/Sex: 65 / F ADM Date: 04/10/25 Loc: ER Room: Type: [facility] ER Attending Dr: Copies to: Jairo Cuenca PA-C Ordering Provider: Jairo Cuenca PA-C Date of Service: 04/10/25 CT/CT angio neck: acute stroke/neuro deficits ([id number]) CT/CT angio head: acute stroke/neuro deficits CT angio head, CT angio neck 04/10/2025 1:56 PM SIGNS AND SYMPTOMS: Imbalance, right-sided facial droop, speech difficulty CONTRAST: 80 mL of intravenous Isovue-370 TECHNIQUE: Multi-detector CT angiography axial slices of the head and neck were obtained during intravenous administration of IV contrast material. Sagittal, coronal, and 3-D reconstructions were performed and viewed on a separate workstation. CT was performed with one or more of the following dose reduction techniques: Automated exposure control, adjustment of the mA and/or kV according to patient size, or use of iterative reconstruction technique. Stenoses were measured using the NASCET criteria. COMPARISON: None. FINDINGS: CTA HEAD: The superior cerebellar arteries, posterior inferior cerebellar arteries, and the basilar artery are within normal limits. The posterior cerebral arteries are unremarkable. The intracranial segments of the internal carotid arteries are within normal limits. There are normal anterior and middle cerebral arteries. Anterior communicating artery is patent. Posterior communicating arteries are present. The deep venous system and dural venous systems appear to be patent. No bony abnormalities are appreciated. CTA NECK: There is a normal three-vessel arch. The subclavian arteries are within normal limits. The vertebral arteries arise from the subclavian arteries and are normal in course and caliber up to the skull base. Calcified plaque is noted in the carotid bifurcations without significant stenosis. Visualized lung parenchyma is clear. Degenerative changes are noted in the cervical spine. No acute bony abnormalities are identified. The paraspinous soft tissues are within normal limits. CT/CT angio head IMPRESSION: No evidence of focal stenosis, aneurysmal dilatation, dissection or occlusion. Impression dictated by: Isai Geller M.D. 04/10/2025 2:30 PM Dictation Location: RADIO-PC-24 Transcribed By: YANIRA 04/10/25 1430 Dictated By: Isai Geller II, MD 04/10/25 1418 Signed By: 04/10/25 1430 Normal [facility] CT head stroke alert wo cono n 04-10-2025 CT head stroke alert wo con [facility] [address] CT Scan Report Signed Patient: Nancy Sue MR#: [id number] 35 : 1960 Acct:[id number] Age/Sex: 65 / F ADM Date: 04/10/25 Loc: ER Room: Type: PRE ER Attending Dr: Copies to: Jairo Cuenca PA-C Ordering Provider: Jairo Cuenca PA-C Date of Service: 04/10/25 CT/CT head stroke alert wo con: acute stroke/neuro deficits CT head stroke alert wo con 04/10/2025 1:51 PM SIGNS AND SYMPTOMS: acute stroke/neuro deficits, facial droop, altered mental status TECHNIQUE:Multi-detector CT axial slices of the brain were obtained without IV contrast. CT was performed with one or more of the following dose reduction techniques: Automated exposure control, adjustment of the mA and/or kV according to patient size, or use of iterative reconstruction technique. COMPARISON: None. FINDINGS: There is no shift of the midline structures, acute intracranial bleeding, mass effects, or evidence of acute ischemia. Atherosclerotic changes are noted in the intracranial segments of the internal carotid arteries. The ventricular system is normal in size. The brainstem and the cerebellum are unremarkable. The visualized intraorbital contents, the visualized paranasal sinuses, and the infratemporal soft tissues show no acute abnormality. The osseous structures in the skull base and the calvarium show no abnormality. CT/CT head stroke alert wo con IMPRESSION: No acute intracranial pathology. Findings were discussed with Jairo Cuenca at 1:53 PM on a 09/29/2024. Impression dictated by: Isai Geller M.D. 04/10/2025 1:54 PM Dictation Location: RADIO-PC-24 Transcribed By: YANIRA 04/10/25 1354 Dictated By: Isai Geller II, MD 04/10/25 1351 Signed By: 04/10/25 1354 Normal [facility] Calcium [Mass/volume] in Ser um or PlasmaOrdered By: Jairo Cuenca on 04-10-2025 Calcium [Mass/Vol] 9.2 mg/dL Normal 8.6-10.3 [facility] Comment on above: Performed By: #### C BC, BMP, PTT, HS TROP, PT, CK ####[facility] [id number] [place] [address] [facility] Capillary blood glucose isaias urement by glucometer (mass/volume)Ordered By: Jairo Cuenca on 04-10-2025 Glucose [Mass/Vol] 109 mg/dL Normal [facility] Comment on above: Random Glucose Refer ence Range is dependent on time and content of last meal. Glucose of more than 200 mg/dL in a nonstressed, ambulatory subject supports the diagnosis of Diabetes Mellitus. Result Comment: [place] Glucose Reference Range is dependent on time and content of last meal. Glucose of more than 200 mg/dL in a nonstressed, ambulatory subject supports the diagnosis of Diabetes Mellitus. PERFORMED BY: [facility] [address] [place] [address] [address] MATRON JIM OLVERA M.D. Performed By: #### G ELIANA #### Point of Care testing , Carbon dioxide, total [Moles /volume] in Serum or PlasmaOrdered By: Jairo Cuenca on 04-10-2025 CO2 [Moles/Vol] 24.7 mmol/L Normal 21.0-31.0 [facility] Comment on above: Performed By: #### C BC, BMP, PTT, HS TROP, PT, CK ####[facility] [id number] [place] [address] [facility] Chloride [Moles/volume] in S vasyl or PlasmaOrdered By: Jairo Cuenca on 04-10-2025 Chloride [Moles/Vol] 107 mmol/L Normal 98-107 [facility] Comment on above: Performed By: #### C BC, BMP, PTT, HS TROP, PT, CK ####[address] Color of Urine by AutoOrdere d By: Jairo Cuenca on 04-10-2025 Color (U) Light-yellow Normal Yellow [facility] Comment on above: Order Comment: Name Collection Type:: Clean-Voided Midstream Performed By: #### A DDONUAPLUS, CUU ####[address] Complete Blood Count Auto Di ffon 04-10-2025 Mean Corpuscular HGB Conc 33.6 g/dL Normal 32.0-35.0 [facility] Comment on above: Performed By: #### C BC, BMP, PTT, HS TROP, PT, CK #### [address] Monocytes/100 WBC (Bld) 26.79 % High 0.00-20.00 [facility] Comment on above: Result Comment: For adults in ED, MDW > 20.0 may be associated with a higher risk of sepsis during the first 12 hrs of hospital admission Performed By: #### C BC, BMP, PTT, HS TROP, PT, CK #### [address] NRBC% 0.2 /100{WBC} Normal 0-0.5 [facility] Comment on above: Performed By: #### C BC, BMP, PTT, HS TROP, PT, CK #### [address] White Blood Count 5.5 [CFU]/mL Normal 3.8-11.6 [facility] Comment on above: Performed By: #### C BC, BMP, PTT, HS TROP, PT, CK #### [address] Creatine kinase [Enzymatic a ctivity/volume] in Serum or PlasmaOrdered By: Jairo Cuenca on 04-10-2025 CK [Catalytic activity/Vol] 50 U/L Normal 30-223 [facility] Comment on above: Performed By: #### C BC, BMP, PTT, HS TROP, PT, CK ####[address] [address] [facility] Creatinine [Mass/volume] in Serum or PlasmaOrdered By: Jairo Cuenca on 04-10-2025 Creatinine [Mass/Vol] 1.05 mg/dL Normal 0.60-1.20 [facility] Comment on above: Performed By: #### C BC, BMP, PTT, HS TROP, PT, CK ####[address] [address] [facility] Dipstick and Microscopicon 0 04-10-2025 Bacteria,Urine None Seen Normal None Seen [facility] Comment on above: Order Comment: Name Collection Type:: Clean-Voided Midstream Performed By: #### A DDONUAPLUS, CUU ####[address] [address] [facility] Bilirubin,Urine Negative Normal Negative [facility] Comment on above: Order Comment: Name Collection Type:: Clean-Voided Midstream Performed By: #### A DDONUAPLUS, CUU ####[address] [address] [facility] Glucose Ql (U) Normal Normal Normal [facility] Comment on above: Order Comment: Name Collection Type:: Clean-Voided Midstream Performed By: #### A DDONUAPLUS, CUU ####[address] [address] [facility] Hyaline Casts,Urine None Normal 0-8 [facility] Comment on above: Order Comment: Name Collection Type:: Clean-Voided Midstream Performed By: #### A DDONUAPLUS, CUU ####[address] [address] [facility] Mucus,Urine Rare Normal [facility] Comment on above: Order Comment: Name Collection Type:: Clean-Voided Midstream Result Comment: PERF ORMED BY: [facility] [address] [place] [id number] PATHOLOGIST REST ROOM MATRON JIM OLVERA M.D. Performed By: #### A DDONUAPLUS, CUU ####[facility] [place] [address] [place] Nitrite,Urine Negative Normal Negative [facility] Comment on above: Order Comment: Name Collection Type:: Clean-Voided Midstream Performed By: #### A DDONUAPLUS, CUU ####[address] [address] [facility] Occult Blood,Urine Negative Normal Negative [facility] Comment on above: Order Comment: Name Collection Type:: Clean-Voided Midstream Result Comment: PERF ORMED BY: [facility] [address] [place] [place] [id number] PATHOLOGIST REST ROOM MATRON JIM OLVERA M.D. Performed By: #### A DDONUAPLUS, CUU ####[address] [address] [facility] Protein,Urine Negative Normal Negative [facility] Comment on above: Order Comment: Name Collection Type:: Clean-Voided Midstream Performed By: #### A DDONUAPLUS, CUU ####[address] [address] [facility] RBC,Urine 1-2 Normal 0-4 [facility] Comment on above: Order Comment: Name Collection Type:: Clean-Voided Midstream Performed By: #### A DDONUAPLUS, CUU ####[address] [address] [facility] Specificy [place],Urine 1.036 High 1.001-1.03 0 [facility] Comment on above: Order Comment: Name Collection Type:: Clean-Voided Midstream Performed By: #### A DDONUAPLUS, CUU ####[address] [address] [place] Squamous Epithelial Cell,Urine 1-2 Normal 0-2 [facility] Comment on above: Order Comment: Name Collection Type:: Clean-Voided Midstream Performed By: #### A DDONUAPLUS, CUU ####[address] [address] [facility] Urobilinogen,Urine Normal Normal Normal [facility] Comment on above: Order Comment: Name Collection Type:: Clean-Voided Midstream Performed By: #### A DDONUAPLUS, CUU ####[place] [address] WBC,Urine 5-9 Normal 0-4 [facility] Comment on above: Order Comment: Name Collection Type:: Clean-Voided Midstream Performed By: #### A DDONUAPLUS, CUU ####[facility] ECG 12 lead ECGon 04-10-2025 ECG 12 lead ECG [facility] [address] [place] [address] [place] [address] Electrocardiograph Report Signed Patient: Nancy Sue MR#: [id number] 35 : 1960 Acct:[id number] Age/Sex: 65 / F ADM Date: 04/10/25 Loc: Room: [address] [place] [address] Type: ADM INOo Attending Dr: Simba Mulligan MD Ordering Provider: Jairo Cuenca PA-C Date of Service: 04/10/2510/04/1334 ECG/ECG 12 lead ECG: Neuro Symptoms/Deficit Copies to: Test Reason : Blood Pressure : */* mmHG Vent. Rate : 77 BPM Atrial Rate : 77 BPM P-R Int : 144 ms QRS Dur : 98 ms QT Int : 380 ms P-R-T Axes : 41 -66 33 degrees QTcB Int : 430 ms Normal sinus rhythm with sinus arrhythmia Left axis deviation Confirmed by Gabby Joshua MD ([id number]) on 04/10/2025 6:34:43 PM Referred By: Electronically Signed By: Gabby Joshua MD Transcribed By: MUS Signed By Gabby Joshua MD 10/04 3029 Normal [facility] Eosinophils [#/volume] in Bl ood by Automated countOrdered By: Jairo Cuenca on 04-10-2025 Eosinophils (Bld) [#/Vol] 0.1 10*3/uL Normal 0.0-0.45 [facility] Comment on above: Performed By: #### C BC, BMP, PTT, HS TROP, PT, CK #### [facility] [address] Eosinophils/100 leukocytes i n Blood by Automated countOrdered By: Jairo Cuenca on 04-10-2025 Eosinophils/100 WBC (Bld) 1.4 % Normal . [facility] Comment on above: Performed By: #### C BC, BMP, PTT, HS TROP, PT, CK #### [facility] [address] Epithelial cells.squamous [# /area] in Urine sediment by Automated countOrdered By: Jairo Cuenca on 04-10-2025 Epithelial cells.squamous Auto (Urine sed) [#/Area] 1-2 [HPF] 0-2 [facility] Erythrocyte distribution wid th [Ratio] by Automated countOrdered By: Jairo Cuenca on 04-10-2025 Erythrocyte distribution width (RBC) [Ratio] 14.1 % Normal 11.9-15.3 [facility] Comment on above: Performed By: #### C BC, BMP, PTT, HS TROP, PT, CK #### [facility] [address] Erythrocytes [#/area] in Uri ne sediment by Automated countOrdered By: Jairo Cuenca on 04-10-2025 RBC Auto (Urine sed) [#/Area] 1-2 [HPF] 0-4 [facility] Erythrocytes [#/volume] in B lood by Automated countOrdered By: Jairo Cuenca on 04-10-2025 RBC (Bld) [#/Vol] 4.64 10*6/uL Normal 3.60-5.00 [facility] Comment on above: Performed By: #### C BC, BMP, PTT, HS TROP, PT, CK #### [facility] [address] Glucose [Mass/volume] in Ser um or PlasmaOrdered By: Jairo Cuenca on 04-10-2025 Glucose [Mass/Vol] 100 mg/dL Normal 70-100 [facility] Comment on above: ADA recommended refe rence rangeRandom Glucose Reference Range is dependent on time and content of last meal. Glucose of more than 200 mg/dL in a nonstressed, ambulatory subject supports the diagnosis of Diabetes Mellitus. Result Comment: [facility] Glucose Reference Range is dependent on time and content of last meal. Glucose of more than 200 mg/dL in a nonstressed, ambulatory subject supports the diagnosis of Diabetes Mellitus. ADA recommended reference range Performed By: #### C BC, BMP, PTT, HS TROP, PT, CK ####[facility] [id number] Glucose [Mass/volume] in Uri ne by Test stripOrdered By: Jairo Cuenca on 04-10-2025 Glucose Test strip (U) [Mass/Vol] Normal mg/dL Normal [facility] Hematocrit [Volume Fraction] of Blood by Automated countOrdered By: Jairo Cuenca on 04-10-2025 Hematocrit (Bld) [Volume fraction] 40.8 % Normal 34.0-46.4 [facility] Comment on above: Performed By: #### C BC, BMP, PTT, HS TROP, PT, CK #### [facility] [address] Hemoglobin Test strip Ql (U) Ordered By: Jairo Cuenca on 04-10-2025 Hemoglobin Ql (U) Negative Negative [facility] Hemoglobin [Mass/volume] in BloodOrdered By: Jairo Cuenca on 04-10-2025 Hemoglobin (Bld) [Mass/Vol] 13.7 g/dL Normal 11.8-15.4 [facility] Comment on above: Performed By: #### C BC, BMP, PTT, HS TROP, PT, CK #### [facility] [address] Hyaline casts [#/area] in Ur ine sediment by Automated countOrdered By: Jairo Cuenca on 04-10-2025 Hyaline casts Auto (Urine sed) [#/Area] None [LPF] 0-8 [facility] INR in Platelet poor plasma by Coagulation assayOrdered By: Jairo Cuenca on 04-10-2025 INR Coag (PPP) [Relative time] 1.0 {INR} Normal [facility] Comment on above: INR Therapeutic Rang e A) Pre- and Peroperative OAT started two weeks before surgery. NOT HIP SURGERY: 1.5 - 2.5 HIP SURGERY: 2 - 3B) Primary and secondary prevention of venous THROMBOSIS: 2 - 3C) Active venous thrombosis, pulmonary embolismand prevention of recurrent venous thrombosis: 2 - 3D) Prevention of arterial thromboembolismincluding patients with mechanical heart valves: 3 - 4.5 Result Comment: INR Therapeutic Range A) Pre- and Peroperative OAT started two weeks before surgery. NOT HIP SURGERY: 1.5 - 2.5 HIP SURGERY: 2 - 3 B) Primary and secondary prevention of venous THROMBOSIS: 2 - 3 C) Active venous thrombosis, pulmonary embolism and prevention of recurrent venous thrombosis: 2 - 3 D) Prevention of arterial thromboembolism including patients with mechanical heart valves: 3 - 4.5 Performed By: #### C BC, BMP, PTT, HS TROP, PT, CK #### [facility] [address] Ketones [Presence] in Urine by Test stripOrdered By: Jairo Cuenca on 04-10-2025 Ketones Ql (U) Negative Normal Negative [facility] Comment on above: Order Comment: Name Collection Type:: Clean-Voided Midstream Performed By: #### A DDONUAPLUS, CUU ####[facility] Leukocyte esterase [Presence ] in Urine by Test stripOrdered By: Jairo Cuenca on 04-10-2025 Leukocyte esterase Test strip Ql (U) 3+ Normal Negative [facility] Comment on above: Order Comment: Name Collection Type:: Clean-Voided Midstream Performed By: #### A DDONUAPLUS, CUU ####[facility] Leukocytes [#/area] in Urine sediment by Automated countOrdered By: Jairo Cuenca on 04-10-2025 WBC Auto (Urine sed) [#/Area] 5-9 [HPF] High 0-4 [facility] Leukocytes [#/volume] correc britney for nucleated erythrocytes in Blood by Automated counOrdered By: Jairo Cuenca on 04-10-2025 WBC corrected for nucl RBC Auto (Bld) [#/Vol] 5.5 10*3/uL 3.8-11.6 [facility] Leukocytes [#/volume] in Blo od by Automated countOrdered By: Jairo Cuenca on 04-10-2025 WBC (Bld) [#/Vol] 5.5 10*3/uL Normal 3.8-11.6 [facility] Comment on above: Performed By: #### C BC, BMP, PTT, HS TROP, PT, CK #### [facility] [address] Lymphocytes [#/volume] in Bl ood by Automated countOrdered By: Jairo Cuenca on 04-10-2025 Lymphocytes (Bld) [#/Vol] 1.8 10*3/uL Normal 1.00-4.8 [facility] Comment on above: Performed By: #### C BC, BMP, PTT, HS TROP, PT, CK #### [facility] [address] Lymphocytes/100 leukocytes i n Blood by Automated countOrdered By: Jairo Cuenca on 04-10-2025 Lymphocytes/100 WBC (Bld) 33.0 % Normal . [facility] Comment on above: Performed By: #### C BC, BMP, PTT, HS TROP, PT, CK #### [facility] [address] MCH [Entitic mass] by Automa britney countOrdered By: Jairo Cuenca on 04-10-2025 MCH (RBC) [Entitic mass] 29.6 pg Normal 24.7-34.3 [facility] Comment on above: Performed By: #### C BC, BMP, PTT, HS TROP, PT, CK #### [facility] [address] [place] [address] MCHC Auto (RBC) [Mass/Vol]Or dered By: Jairo Cuenca on 04-10-2025 MCHC (RBC) [Mass/Vol] 33.6 g/dL 32.0-35.0 [facility] MCV [Entitic volume] by Auto mated countOrdered By: Jairo Cuenca on 04-10-2025 MCV (RBC) [Entitic vol] 87.9 fL Normal 80-100 [facility] Comment on above: Performed By: #### C BC, BMP, PTT, HS TROP, PT, CK #### [facility] [address] MR head/brain wo conon 04-10 MR head/brain wo con [facility] [address] [place] [address] [place] [address] MRI Report Signed Patient: Nancy Sue MR#: [id number] 36 : 1960 Acct:[id number] Age/Sex: 65 / F ADM Date: 04/10/25 Loc: Room: [address] [place] [address] Type: ADM INOo Attending Dr: Simba Mulligan MD Copies to: Simba Mulligan MD Ordering Provider: Simba Mulligan MD Date of Service: 04/10/25 MR/MR head/brain wo con: Facial droop, slurred speech, dysequilibrium EXAMINATION: MRI OF THE BRAIN WITHOUT CONTRAST CLINICAL HISTORY: Facial droop, slurred speech, disequilibrium COMPARISON: CTA 01/27/2025 TECHNIQUE: Multiecho, multiplanar imaging of the brain was performed without enhancement. No restricted diffusion. Ventricles and sulci normal size and configuration for the patient's age. No shift midline structure. Basal cisterns are patent. Minimal scattered foci periventricular and subcortical prolongation identified, but given the degree white matter changes, this is likely within normal limits for the patient's age. No shift midline structures. Basal cisterns obtained. Major intracranial arterial vascular flow voids preserved. [id number]-mexfbswp paranasal sinus mucosal thickening. MR/MR head/brain wo con IMPRESSION: No acute intracranial process by MRI. Saqh-qg-jhlodhvq paranasal sinus mucosal thickening. Essentially unremarkable MRI brain performed for the patient's age. Impression dictated by: Raudel Ascencio M.D. 04/10/2025 9:58 PM Dictation Location: [place] [address] Transcribed By: [facility] 04/10/252157 Dictated By: Raudel Ascencio MD 04/10/252151 Signed By: 04/10/252157 Normal [facility] Monocyte distribution width [Entitic volume] in Blood by AutomatedOrdered By: Jairo Cuenca on 04-10-2025 Monocyte distribution width Auto (Bld) [Entitic vol] 26.79 % High 0.00-20.00 [facility] Comment on above: For adults in ED, MD W > 20.0 may be associated with a higher risk of sepsis during the first 12 hrs of hospital admission Monocytes [#/volume] in Bloo d by Automated countOrdered By: Jairo Cuenca on 04-10-2025 Monocytes (Bld) [#/Vol] 0.2 10*3/uL Normal 0.0-0.8 [facility] Comment on above: Performed By: #### C BC, BMP, PTT, HS TROP, PT, CK #### [facility] [address] [place] [address] [place] Monocytes/100 leukocytes in Blood by Automated countOrdered By: Jairo Ceunca on 04-10-2025 Monocytes/100 WBC (Bld) 3.6 % Normal . [facility] Comment on above: Performed By: #### C BC, BMP, PTT, HS TROP, PT, CK #### [facility] [address] [place] [address] [place] Mucus [Presence] in Urine by AutomatedOrdered By: Jairo Cuenca on 04-10-2025 Mucus Auto Ql (U) Rare [LPF] [facility] Neutrophils [#/volume] in Bl ood by Automated countOrdered By: Jairo Cuenca on 04-10-2025 Neutrophils (Bld) [#/Vol] 3.3 10*3/uL Normal 1.8-7.7 [facility] Comment on above: Performed By: #### C BC, BMP, PTT, HS TROP, PT, CK #### [facility] [address] [place] [address] [place] Neutrophils/100 leukocytes i n Blood by Automated countOrdered By: Jairo Cuenca on 04-10-2025 Neutrophils/100 WBC (Bld) 61.2 % Normal . [facility] Comment on above: Performed By: #### C BC, BMP, PTT, HS TROP, PT, CK #### [facility] [address] [place] [address] [place] Nitrite Test strip Ql (U)Ord ered By: Jairo Cuenca on 04-10-2025 Nitrite Ql (U) Negative Negative [facility] No Panel InformationOrdered By: Jairo Cuenca on 04-10-2025 Estimated GFR (CKD-EPI) 58.600 mL/Min [facility] Creatinine Clearance (Chem 60.24 [facility] Nucleated erythrocytes [Pres ence] in Blood by Automated countOrdered By: Jairo Cuenca on 04-10-2025 Nucleated RBC Auto Ql (Bld) 0.2 /100{WBC} 0-0.5 [facility] Partial Thromboplastin Timeo n 04-10-2025 aPTT Coag (Bld) [Time] 30.8 s Normal 25.1-36.5 [facility] Comment on above: Result Comment: A he matocrit value greater than 55% may lead to inaccurate results in coagulation testing. Patients having hematocrit values >55% require a special collection tube for coagulation studies. Please contact the laboratory at [phone] for redraw instructions. PERFORMED BY: [place] [address] PATH[address] RO[address] MATRON JIM OLVERA M.D. Performed By: #### C BC, BMP, PTT, HS TROP, PT, CK ####[facility] [id number] Platelet mean volume [Entiti c volume] in Blood by Automated countOrdered By: Jairo Cuenca on 04-10-2025 Platelet mean volume (Bld) [Entitic vol] 9.4 fL Normal 6.3-10.7 [facility] Comment on above: Performed By: #### C BC, BMP, PTT, HS TROP, PT, CK #### [facility] [address] [place] [address] [place] Platelets [#/volume] in Bloo d by Automated countOrdered By: Jairo Cuenca on 04-10-2025 Platelets (Bld) [#/Vol] 139 10*3/uL Low 150-450 [facility] Comment on above: Performed By: #### C BC, BMP, PTT, HS TROP, PT, CK #### [facility] [address] [place] [id number] [facility] Potassium [Moles/volume] in Serum or PlasmaOrdered By: Jairo Cuenca on 04-10-2025 Potassium [Moles/Vol] 4.6 mmol/L Normal 3.5-5.1 [facility] Comment on above: Hemolysis is present at a level that could interfere with the result.Contact lab if redraw is required Result Comment: Hemo lysis is present at a level that could interfere with the result. Contact lab if redraw is required Performed By: #### C BC, BMP, PTT, HS TROP, PT, CK ####[facility] Protein Test strip (U) [Mass /Vol]Ordered By: Jairo Cuenca on 04-10-2025 Protein (U) [Mass/Vol] Negative Negative [facility] Prothrombin time (PT)Ordered By: Jairo Cuenca on 04-10-2025 PT Coag (PPP) [Time] 11.6 s Normal 9.0-12.9 [facility] Comment on above: A hematocrit value g reater than 55% may lead to inaccurate results in coagulation testing. Patients having hematocrit values >55% require a special collection tube for coagulation studies. Please contact the laboratory at [phone] for redraw instructions. Result Comment: A he matocrit value greater than 55% may lead to inaccurate results in coagulation testing. Patients having hematocrit values >55% require a special collection tube for coagulation studies. Please contact the laboratory at [phone] for redraw instructions. Performed By: #### C BC, BMP, PTT, HS TROP, PT, CK #### [facility] [address] [place] [id number] [facility] Serum or plasma anion gap de terminationOrdered By: Jairo Cuenca on 04-10-2025 Anion gap [Moles/Vol] 10.9 mmol/L Normal 6.0-15.0 [facility] Comment on above: Performed By: #### C BC, BMP, PTT, HS TROP, PT, CK ####[facility] [id number] [place] [id number] [facility] Sodium [Moles/volume] in Ser um or PlasmaOrdered By: Jairo Cuenca on 04-10-2025 Sodium [Moles/Vol] 138 mmol/L Normal 136-145 [facility] Comment on above: Performed By: #### C BC, BMP, PTT, HS TROP, PT, CK ####[facility] [place] [id number] [facility] Specific gravity Test strip (U) [Rel density]Ordered By: Jairo Cuenca on 04-10-2025 Specific gravity (U) [Rel density] 1.036 High 1.001-1.03 0 [facility] Troponin I High Sensitivityo n 04-10-2025 Troponin I High Sensitivity <3 Normal 0-15 [facility] Comment on above: Result Comment: The Troponin units of report have been changed to meet the Chest Pain Accreditation requirement, element EC5.M1l2. Troponin units are changed from pg/ml to ng/L. Also, the decimal is removed and results are in whole numbers. PERFORMED BY: [facility] [address] [place] [id number] PATHOLOGIST REST ROOM MATRON JIM OLVERA M.D. Performed By: #### C BC, BMP, PTT, HS TROP, PT, CK ####[place] [id number] [place] [id number] [facility] Troponin I.cardiac [Mass/vol ume] in Serum or Plasma by Detection limit <= 0.01 ng/mLOrdered By: Jairo Cuenca on 04-10-2025 Troponin I.cardiac DL <= 0.01 ng/mL [Mass/Vol] < 3 ng/L 0-15 [facility] Comment on above: The Troponin units o f report have been changed to meet the Chest Pain Accreditation requirement, element EC5.M1l2. Troponin units are changed from pg/ml to ng/L. Also, the decimal is removed and results are in whole numbers. Urea nitrogen [Mass/volume] in Serum or PlasmaOrdered By: Jairo Cuenca on 04-10-2025 Urea nitrogen [Mass/Vol] 14 mg/dL Normal 7-25 [facility] Comment on above: Performed By: #### C BC, BMP, PTT, HS TROP, PT, CK ####[place] [id number] [facility] Urine Cultureon 04-10-2025 Bacteria identified Cx Nom (U) <9,000 colonies/ml mixed bacterial skin contaminants 2 Days PERFORMED BY: [place] [id number] PATHOLOGIST REST ROOM MATRON JIM OLVERA M.D. Normal [facility] Comment on above: Performed By: #### A ALEXIS SEVERINO ####[place] [id number] [facility] Urobilinogen Test strip (U) [Mass/Vol]Ordered By: Jairo Cuenca on 04-10-2025 Urobilinogen (U) [Mass/Vol] Normal mg/dL Normal [facility] X-ray reportOrdered By: Robert Wilcox on 04-10-2025 Study report [facility] [place] [address] XRay Report Signed Patient: Nancy Sue MR#: [id number] : 1960 Acct:[id number] Age/Sex: 65 / F ADM Date: 5 Loc: ER Room: Type: PRE ER Attending Dr: Copies to: Jairo Cuenca PA-C~ Ordering Provider: Jairo Cuenca PA-C Date of Service: 04/10/25 XR/XR chest 1V portable: Neuro Symptoms/Deficit SINGLE VIEW CHEST CLINICAL HISTORY: Stroke alert. Slurred speech. COMPARISON: None FINDINGS: Right-sided port tip in the SVC. Heart is normal in size. No consolidation pneumothorax pleural effusion or free air. XR/XR chest 1V portable IMPRESSION: NO ACUTE FINDINGS Impression dictated by: Dao Wilcox Jr., D.OLawrence 04/10/2025 1:57 PM Dictation Location: [place] [address] Transcribed By: [facility] 04/10/25 1357 Dictated By: Dao Wilcox Jr, DO 04/10/25 1356 Signed By: 04/10/25 1357 [facility] XR chest 1V portableon 04-10 XR chest 1V portable [facility] Main [address] [address] XRay Report Signed Patient: Nancy Sue MR#: [id number] 36 : 1960 Acct:[id number] Age/Sex: 65 / F ADM Date: 04/10/25 Loc: ER Room: Type: PRE ER Attending Dr: Copies to: Jairo Cuenca PA-C Ordering Provider: Jairo Cuenca PA-C Date of Service: 04/10/25 XR/XR chest 1V portable: Neuro Symptoms/Deficit SINGLE VIEW CHEST CLINICAL HISTORY: Stroke alert. Slurred speech. COMPARISON: None FINDINGS: Right-sided port tip in the SVC. Heart is normal in size. No consolidation pneumothorax pleural effusion or free air. XR/XR chest 1V portable IMPRESSION: NO ACUTE FINDINGS Impression dictated by: Dao Wilcox Jr., D.OLawrence 04/10/2025 1:57 PM Dictation Location: [place] [address] Transcribed By: [facility] 04/10/25 1357 Dictated By: Dao Wilcox Jr, DO 04/10/25 1356 Signed By: 04/10/25 1357 Normal [facility] XR foot LT 2Von 04-10-2025 XR foot LT 2V [facility] Main [place] [id number] XRay Report Signed Patient: Nancy Sue MR#: [id number] 36 : 1960 Acct:[id number] Age/Sex: 65 / F ADM Date: 04/10/25 Loc: Room: 6C3781-5 Type: ADM INOo Attending Dr: Simba Mulligan MD Copies to: Simba Mulligan MD Ordering Provider: Simba Mulligan MD Date of Service: 04/10/25 XR/XR foot LT 2V: Third digit left foot with swelling, concern for fracture 2 views left foot INDICATION: Third digits swelling and bruising status post injury COMPARISON: None FINDINGS: No fracture dislocation identified. Moderate posterior calcaneal enthesophyte formation. Mild plantar calcaneal enthesophyte formation. Otherwise minimal degenerative changes. XR/XR foot LT 2V IMPRESSION: Negative acute osseous abnormality. Impression dictated by: Raudel Ascencio M.D. 04/10/2025 11:18 PM Dictation Location: [place] [address] Transcribed By: [facility] 04/10/252317 Dictated By: Raudel Ascencio MD 04/10/252315 Signed By: 04/10/252317 Normal [facility] aPTT in Platelet poor plasma by Coagulation assayOrdered By: Jairo Cuenca on 04-10-2025 aPTT Coag (PPP) [Time] 30.8 s 25.1-36.5 [facility] Comment on above: A hematocrit value g reater than 55% may lead to inaccurate results in coagulation testing. Patients having hematocrit values >55% require a special collection tube for coagulation studies. Please contact the laboratory at [phone] for redraw instructions. pH of Urine by Test stripOrd ered By: Jairo Cuenca on 04-10-2025 pH (U) 5.5 [pH] Normal 5.0-9.0 [facility] Comment on above: Order Comment: Name Collection Type:: Clean-Voided Midstream Performed By: #### A ALEXIS SEVERINO ####[facility] [id number] [place] [address] [facility] CNOVSPon 02-18-2025 CNOVSP Visit (SP) Office ([facility]) -- NANCY SUE ([id number]) 1960 F Date Time Provider Department 02/18/25 10:30 AM JAUN COFFEY During your visit today, we recorded the following information about you: Temperature Pulse Respiration Blood pressure 97.4 degrees 80/minute 16/minute 138/79 Weight Height 97.6 kg 1.626 m Jaun Coffey PA-C 02/18/2025 10:59 AM Signed NAME: Nancy Sue CLINIC NO.: [id number] DATE OF SERVICE: February 18, 2025 (Goldy) Some elements in this clinic note that are critical to medical decision making have been carefully reviewed and included from a prior clinic note dated: November 03, 2024 (Dianne) Referring Provider: Kaley Francois Additional Clinicians involved in Nancy Sue's care: Dr. Justin Buckner, Dr. 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 She had rectal bleeding that started in February 2023. Surprisingly not iron deficient. PET showed mesenteric and retroperitoneal LN's. Most consistent with stage IV disease. 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 Final path at resection was Stage I - no treatment response noted on pathology evaluation. Started FOLFOX on 08/29/2023. Cancer Staging Cancer of sigmoid (HCC) Staging form: Colon and Rectum, AJCC 8th Edition - Clinical stage from 06/29/2023: Stage IVB (cTX, cNX, cM1b) - Signed by Jose Wing MD on 07/20/2023 - Pathologic stage from 01/03/2024: Stage I (ypT2, pN0, cM0) - Signed by Jose Wing MD on 01/13/2024 LN's identified are borderline - may be Overstaged. Pulmonary GPS Biopsy of Right lung lesion - Carcinoid. SUMMARIZED PLAN OF CARE: Discussed results of recent CT scan as stable and no evidence of disease. Plan is to follow up in 6 months with repeat imaging and labs Next colonoscopy is due in June 2027 Port flush every 3 months _- HPI: CASE HISTORY: Reverse Chronological Order 02/09/2025 - CT CAP w/ con: Chest: 1. No interval change since 10/27/24. 2. Several subcentimeter nodular opacities measuring up to 7 mm, stable since 06/22/23. 3. Findings compatible with previous granulomatous disease. A/P: 1. No interval change since 10/27/24. 2. Mild splenomegaly and mild to moderate abdominal lymphadenopathy, stable. 3. Cholelithiasis. 4. Nonobstructing left renal stones. 10/27/2024 - CT CAP: Chest: Stable CT of the chest. Stable appearance of bilateral nodular opacities. No new nodules are identified. No evidence of bulky intrathoracic lymphadenopathy. A/P: Postsurgical changes, without evidence of new abdominal or pelvic metastatic disease. Intra-abdominal lymphadenopathy which is either stable or slightly decreased in size when compared to prior exam. New fluid collection within a surgical scar, likely representing a seroma or hematoma. 10/27/2024 - CEA: 0.8 02/22/2024-02/24/2024 - Admitted for ileostomy closure 01/17/2024-01/19/2024 - Admitted at [facility] for skin irritation at stoma site 01/11/2024 - CEA: 0.7 12/28/2023 - Laparoscopic converted to open low anterior resection, Splenic flexure mobilization, Diverting loop ileostomy, Flexible Sigmoidoscopy: Dr. Alessandro Resendiz. Hepatic artery lymph node, excision: - One lymph node, negative for malignancy (0/1). B. Sigmoid colon and proximal rectum, resection: - Residual invasive adenocarcinoma (see synoptic report). - One additional tubular adenoma. - Diverticular disease with associated focal active inflammation. - Sixteen lymph nodes, negative for malignancy (0/16). C. Distal donut, excision: - Segment of rectum with no diagnostic abnormality. 11/07/2023 - CT CAP: Chest: Streaky scarring/discoid atelectasis in the left upper lobe, increased since 08/13/23. Several subcentimeter nodular opacities measuring up to 8 mm, stable since 06/22/23. Findings compatible with previous granulomatous disease. A/P: Mild splenomegaly, increased in size since 06/22/23. Zury-zp-uuhznayj abdominal lymphadenopathy, stable. Increased streaky reticulation of the pelvic fat may represent post therapy changes or edema. Previously noted thickening of the rectosigmoid colon wall is less conspicuous. Sigmoid colon diverticulosis without evidence of diverticulitis. Nonobstructing left renal stones. 11/07/2023 - CEA: 1.2 08/29/2023-11/21/2023 - 5 cycles FOLFOX 08/29/2023 - CEA: 2.5 08/22/2023 - TB-FNA Right lower Lobe: - Neoplastic cells present derived from low-grade neuroendocrine tumor 07/13/2023 - CT PET: Intense uptake along more than 7 cm of the sigmoid colon consistent with known primary, associated with mildly prominent with mild-to-mo (more content not included)... Normal [facility] ([facility]) -- NANCY SUE ([id number]) 1960 F Date Time Provider Department 02/18/25 PENELOPE MORENO During your visit today, we recorded the following information about you: Penelope Moreno RN 02/18/2025 11:[address] Lee's office calls to ask if pt has had a recent colonoscopy or if she is due for one. Pt's record shows that she had a screening colonoscopy done on 08/04/24 w/ recommendations to repeat in 3 years due to her personal h/o colon cancer. Antonia @ Dr Lee's office notified of the above. Copy of the pt's colonoscopy report faxed to [phone] for their records. No further questions noted. Penelope Moreno RN Allergies As of Date: 02/18/2025 Noted Allergy Reaction [id number] REDUCTASE INHIBIT*06/18/2022 14 - Other: See Comments 16 - Unknown 17 - Myalgia Comments: myalgias Date Reviewed: 02/18/2025 Reviewed by: Jaun Coffey PA-C - Fully Assessed Prescriptions as of 02/18/2025 - enteric contrast (will be provided with radiology test) For CT CHESTABD/PEL W IVCON Routine order Administer, As Directed One Time Only, via Oral, Rectal, both Oral and Rectal, Enteric Tube, Stoma or Indwelling Catheter, Enteric Contrast as designated per enteric contrast guidelines - iv contrast (will be provided with [...] in the CT contrast administration guidelines link. - ibuprofen (MOTRIN) 200 mg tablet Take 2 tablets by mouth every 6 hours. - iron glycinate,polysacch cmplx (IRON BIS GLYCIN-FE P-SAC CMPLX ORAL) Take 20 mg by mouth once daily. - collagen, hydrolysate, bovine, (COLLAGEN, HYDR, BOVINE,, BULK,) 100 % powd Take 1 Dose by mouth once daily. - levothyroxine (SYNTHROID) 50 mcg tablet Take 50 mcg by mouth once daily. - Pramoxine-Hydrocortisone (ANALPRAM-HC) 1-1 % rectal cream 1 g by RECTAL route two times a day as needed (rectal discomfort). - omega 0-rcn-tem-fish oil 120-180-500 mg cap Take 500 mg by mouth once daily. Problem List As Of Date 02/18/2025 Noted Resolved Rectal cancer (HCC) [C20] 06/08/2023 Cancer of sigmoid (HCC) [C18.7] 07/03/2023 HLD (hyperlipidemia) [E78.5] 08/10/2023 HTN (hypertension) [I10] 08/10/2023 Morbid obesity (HCC) [E66.01] 08/10/2023 Hypothyroidism [E03.9] 08/10/2023 PONV (postoperative nausea and vomiting) [R11.2*08/13/2023 Iron deficiency anemia [D50.9] 09/12/2023 Colon cancer (HCC) [C18.9] 12/28/2023 Encounter for ostomy care education [Z71.89] 12/29/2023 01/04/2024 Ileostomy bag changed (HCC) [Z43.2] 12/29/2023 01/04/2024 Ileostomy present (HCC) [Z93.2] 12/29/2023 Postoperative pain [G89.18] 01/03/2024 Skin breakdown [R23.8] 01/17/2024 Irritant contact dermatitis associated with fec*01/19/[address] (HCC) [Z93.2] 02/22/2024 Encounter Status:Closed by PENELOPE MORENO on 02/18/25 Normal [facility] CBC W Auto Differential pane l (Bld)on 02-09-2025 Basophils (Bld) [#/Vol] [facility] Basophils/100 WBC (Bld) 0.5 % [facility] Differential cell count method Nom (Bld) Auto [facility] Eosinophils (Bld) [#/Vol] 0.12 10*3/uL [facility] Eosinophils/100 WBC (Bld) 2.8 % [facility] Erythrocyte distribution width (RBC) [Ratio] 13.6 % 11.5 - 15.0 % [facility] Hematocrit (Bld) [Volume fraction] 37.3 % 36.0 - 46.0 % [facility] Hemoglobin (Bld) [Mass/Vol] 12.5 g/dL 11.5 - 15.5 g/dL [facility] Immature granulocytes (Bld) [#/Vol] [facility] Immature granulocytes/100 WBC (Bld) 0.2 % [facility] Interpretation and review of laboratory results Abnormal [facility] Lymphocytes (Bld) [#/Vol] 1.84 10*3/uL [facility] Lymphocytes/100 WBC (Bld) 43.3 % [facility] MCH (RBC) [Entitic mass] 29.6 pg 26.0 - 34.0 pg [facility] MCHC (RBC) [Mass/Vol] 33.5 g/dL 30.5 - 36.0 g/dL [facility] MCV (RBC) [Entitic vol] 88.2 fL 80.0 - 100.0 fL [facility] Monocytes (Bld) [#/Vol] 0.16 10*3/uL [facility] Monocytes/100 WBC (Bld) 3.8 % [facility] Neutrophils (Bld) [#/Vol] 2.1 10*3/uL [facility] Neutrophils/100 WBC (Bld) 49.4 % [facility] Nucleated RBC (Bld) [#/Vol] NINF [facility] Nucleated RBC/100 WBC (Bld) [Ratio] 0 % /100 WBC [facility] Platelet mean volume (Bld) [Entitic vol] 11.5 fL 9.0 - 12.7 fL [facility] Platelets (Bld) [#/Vol] 121 10*3/uL Low [facility] Comment on above: Results checked and verified.No clot detected. RBC (Bld) [#/Vol] 4.23 10*6/uL 3.90 - 5.20 m/uL [facility] WBC (Bld) [#/Vol] 4.25 10*3/uL [facility] Basophils (Bld) [#/Vol] 10*3/uL Normal <0.11 [facility] Comment on above: Order Comment: Speci men Type: BLOOD SPECIMENOrdering Facility: [facility] Address: [address] [place] [address] Performed By: #### 5 7021-8 ####[facility] LABCLIA [id number] [place] [address] Basophils/100 WBC (Bld) 0.5 % Normal [facility] Comment on above: Order Comment: Speci men Type: BLOOD SPECIMENOrdering Facility: [facility] Address: [address] [place] [address] Performed By: #### 5 7021-8 ####[facility] LABCLIA [id number] [place] [address] Differential cell count method Nom (Bld) Auto Normal [facility] Comment on above: Order Comment: Speci men Type: BLOOD SPECIMENOrdering Facility: [facility] Address: [address] [place] [address] Performed By: #### 5 7021-8 ####[facility] LABCLIA [id number] [place] [address] Eosinophils (Bld) [#/Vol] 0.12 10*3/uL Normal <0.46 [facility] Comment on above: Order Comment: Speci men Type: BLOOD SPECIMENOrdering Facility: [facility] Address: [address] [place] [address] Performed By: #### 5 7021-8 ####[facility] LABCLIA [id number] [place] [address] Eosinophils/100 WBC (Bld) 2.8 % Normal [facility] Comment on above: Order Comment: Speci men Type: BLOOD SPECIMENOrdering Facility: [facility] Address: [address] [place] [address] Performed By: #### 5 7021-8 ####[facility] LABCLIA [id number] [place] [address] Erythrocyte distribution width (RBC) [Ratio] 13.6 % Normal 11.5-15.0 [facility] Comment on above: Order Comment: Speci men Type: BLOOD SPECIMENOrdering Facility: [facility] Address: [address] [place] [address] Performed By: #### 5 7021-8 ####[facility] LABCLIA [id number] [place] [address] Hematocrit (Bld) [Volume fraction] 37.3 % Normal 36.0-46.0 [facility] Comment on above: Order Comment: Speci men Type: BLOOD SPECIMENOrdering Facility: [facility] Address: [address] [place] [address] Performed By: #### 5 7021-8 ####[facility] LABIA [id number] [place] [address] Hemoglobin (Bld) [Mass/Vol] 12.5 g/dL Normal 11.5-15.5 [facility] Comment on above: Order Comment: Speci men Type: BLOOD SPECIMENOrdering Facility: [facility] Address: [address] [place] [address] Performed By: #### 5 7021-8 ####[facility] LABCLIA [id number] [place] [address] Immature granulocytes (Bld) [#/Vol] 10*3/uL Normal <0.10 [facility] Comment on above: Order Comment: Speci men Type: BLOOD SPECIMENOrdering Facility: [facility] Address: [address] [place] [address] Performed By: #### 5 7021-8 ####[facility] LABCLIA [id number] [place] [address] Immature granulocytes/100 WBC (Bld) 0.2 % Normal [facility] Comment on above: Order Comment: Speci men Type: BLOOD SPECIMENOrdering Facility: [facility] Address: [address] [place] [address] Performed By: #### 5 7021-8 ####[facility] LABCLIA [id number] [place] [address] Lymphocytes (Bld) [#/Vol] 1.84 10*3/uL Normal 1.00-4.00 [facility] Comment on above: Order Comment: Speci men Type: BLOOD SPECIMENOrdering Facility: [facility] Address: [address] [place] [address] Performed By: #### 5 7021-8 ####[facility] LABCLIA [id number] [place] [address] Lymphocytes/100 WBC (Bld) 43.3 % Normal [facility] Comment on above: Order Comment: Speci men Type: BLOOD SPECIMENOrdering Facility: [facility] Address: [address] [place] [address] Performed By: #### 5 7021-8 ####[facility] LABCLIA [id number] [place] [address] MCH (RBC) [Entitic mass] 29.6 pg Normal 26.0-34.0 [facility] Comment on above: Order Comment: Speci men Type: BLOOD SPECIMENOrdering Facility: [facility] Address: [address] [place] [address] Performed By: #### 5 7021-8 ####[facility] LABCLIA [id number] [place] [address] MCHC (RBC) [Mass/Vol] 33.5 g/dL Normal 30.5-36.0 [facility] Comment on above: Order Comment: Speci men Type: BLOOD SPECIMENOrdering Facility: [facility] Address: [address] [place] [address] Performed By: #### 5 7021-8 ####[facility] LABIA [id number] [place] [address] MCV (RBC) [Entitic vol] 88.2 fL Normal 80.0-100.0 [facility] Comment on above: Order Comment: Speci men Type: BLOOD SPECIMENOrdering Facility: [facility] Address: [address] [place] [address] Performed By: #### 5 7021-8 ####[facility] LABIA [id number] [place] [address] Monocytes (Bld) [#/Vol] 0.16 10*3/uL Normal <0.87 [facility] Comment on above: Order Comment: Speci men Type: BLOOD SPECIMENOrdering Facility: [facility] Address: [address] [place] [address] Performed By: #### 5 7021-8 ####[facility] LABIA [id number] [place] [address] Monocytes/100 WBC (Bld) 3.8 % Normal [facility] Comment on above: Order Comment: Speci men Type: BLOOD SPECIMENOrdering Facility: [facility] Address: [address] [place] [address] Performed By: #### 5 7021-8 ####[facility] LABCLIA [id number] [place] [address] Neutrophils (Bld) [#/Vol] 2.10 10*3/uL Normal 1.45-7.50 [facility] Comment on above: Order Comment: Speci men Type: BLOOD SPECIMENOrdering Facility: [facility] Address: [address] [place] [address] Performed By: #### 5 7021-8 ####[facility] LABCLIA [id number] [place] [address] Neutrophils/100 WBC (Bld) 49.4 % Normal [facility] Comment on above: Order Comment: Speci men Type: BLOOD SPECIMENOrdering Facility: [facility] Address: [address] [place] [address] Performed By: #### 5 7021-8 ####[facility] LABCLIA [id number] [place] [address] Nucleated RBC (Bld) [#/Vol] 10*3/uL Normal <0.01 [facility] Comment on above: Order Comment: Speci men Type: BLOOD SPECIMENOrdering Facility: [facility] Address: [address] [place] [address] Performed By: #### 5 7021-8 ####[facility] LABCLIA [id number] [place] [address] Nucleated RBC/100 WBC (Bld) [Ratio] 0.0 /100 WBC Normal [facility] Comment on above: Order Comment: Speci men Type: BLOOD SPECIMENOrdering Facility: [facility] Address: [address] [place] [address] Performed By: #### 5 7021-8 ####[facility] LABCLIA [id number] [place] [address] Platelet mean volume (Bld) [Entitic vol] 11.5 fL Normal 9.0-12.7 [facility] Comment on above: Order Comment: Speci men Type: BLOOD SPECIMENOrdering Facility: [facility] Address: [address] [place] [address] Performed By: #### 5 7021-8 ####[facility] LABCLIA [id number] [place] [address] Platelets (Bld) [#/Vol] 121 10*3/uL Low 150-400 [facility] Comment on above: Order Comment: Speci men Type: BLOOD SPECIMENOrdering Facility: [facility] Address: [address] [place] [address] Result Comment: Resu lts checked and verified.No clot detected. Performed By: #### 5 7021-8 ####[facility] LABIA [id number] [place] [address] RBC (Bld) [#/Vol] 4.23 10*6/uL Normal 3.90-5.20 [facility] Comment on above: Order Comment: Speci men Type: BLOOD SPECIMENOrdering Facility: [facility] Address: [address] [place] [address] Performed By: #### 5 7021-8 ####[facility] LABIA [id number] [place] [address] WBC (Bld) [#/Vol] 4.25 10*3/uL Normal 3.70-11.00 [facility] Comment on above: Order Comment: Speci men Type: BLOOD SPECIMENOrdering Facility: [facility] Address: [address] [place] [address] Performed By: #### 5 7021-8 ####[facility] LABCLIA [id number] [place] [address] CEA SerPl-mCncon 02-09-2025 Carcinoembryonic Ag [Mass/Vol] 0.7 ng/mL Normal <=2.9 [facility] Comment on above: Order Comment: Speci men Type: BLOOD SPECIMENOrdering Facility: [facility] Address: [address] [place] [address] Result Comment: Carc inoembryonic antigen test is used as an aid in monitoring response to treatment or recurrence in patients with established colorectal, breast, lung, prostatic, pancreatic, and ovarian carcinomas. Clinical correlation is required. The Carcinoembryonic antigen test was performed using the [employer] [place] [employer] DXI paramagnetic particle chemiluminescent immunoassay method. Results obtained with different assay methods or kits cannot be used interchangeably. Performed By: #### 2 039-6 ####[facility] LABCLIA [id number] [place] [id number] [place] CT ABD/PEL W IVCONon 025 CT ABD/PEL W IVCON * * *Final Report* * * DATE OF EXAM: Feb 09 2025 12:07PM [facility] 0530 - CT ABD/PEL W IVCON / PROCEDURE REASON: multiple diagnoses * * * * Physician Interpretation * * * * RESULT: EXAMINATION: CT ABDOMEN AND PELVIS WITH IV CONTRAST CLINICAL HISTORY: Colon cancer follow-up TECHNIQUE: CT of the abdomen and pelvis was performed using standard technique, scanning from just above the dome of the diaphragm to the symphysis pubis. MQ: CTAP_3 Contrast: IV: 100 ml of Omnipaque 350 Oral: 500 ml of Omni 240 10-25ml diluted with water CT Radiation dose: Integrated Dose-length product (DLP) for this visit = 1476 mGy*cm. CT Dose Reduction Employed: mAs-kVp adjusted based on patient size-age COMPARISON: 10/27/24 RESULT: Liver: No mass. Biliary: No bile duct dilation. Cholelithiasis. Spleen: No mass. Mildly enlarged measuring 14-15 cm in length, stable. Pancreas: No mass or duct dilation. Adrenals: No mass. Kidneys: 1-2 mm nonobstructing left renal stones. No evidence of hydronephrosis or suspicious enhancing renal mass. GI tract: No evidence of bowel obstruction. A surgical staple line is noted in the rectosigmoid colon. Lymph nodes: Abdominal lymphadenopathy, stable. For example (short axis measurement): 1.0 cm left paraceliac (3:34) 1.9 cm portacaval (3: 45) Mesentery/Peritoneum: No ascites or mass. Retroperitoneum: No mass. Vasculature: - Abdominal aorta and iliac arteries: Atherosclerotic calcifications without aneurysm. - Celiac and SMA: Patent without stenosis. - Portal venous system (SMV, splenic vein, portal vein and branches): Patent with portosystemic venous collaterals. - Hepatic veins: Patent. Pelvis: No mass, ascites or fluid collection. Urinary bladder is decompressed. Bones/Soft Tissues: Sclerotic foci in the right superior acetabulum and left proximal femur are stable, most likely bone islands. No new osseous abnormalities. Fat-containing umbilical hernia. Lower thorax: A chest CT performed will be reported separately. Tray Checker (topogram) images: No additional findings. IMPRESSION: 1. No interval change since 10/27/24. 2. Mild splenomegaly and mild to moderate abdominal lymphadenopathy, stable. 3. Cholelithiasis. 4. Nonobstructing left renal stones. Transcribe Date/Time: Feb 09 2025 2:33P Dictated by: PAULETTE VALDIVIA MD This examination was interpreted and the report reviewed and electronically signed by: PAULETTE VALDIVIA MD on Feb 09 2025 3:01PM EST Thank you for allowing us to participate in the care of your patient. Should there be any questions regarding this interpretation, please call [phone]. If you are unable to reach us at the number above, please feel free to contact [facility] eRadiology at [phone]. [id number] Normal [facility] CT Abdomen and Pelvis W cont rast Demarco 02-09-2025 IMPRESSION: 1. No interval change since 10/27/24. 2. Mild splenomegaly and mild to moderate abdominal lymphadenopathy, stable. 3. Cholelithiasis. 4. Nonobstructing left renal stones. Transcribe Date/Time: Feb 09 2025 2:33P Dictated by: PAULETTE VALDIVIA MD This examination was interpreted and the report reviewed and electronically signed by: PAULETTE VALDIVIA MD on Feb 09 2025 3:01PM EST Thank you for allowing us to participate in the care of your patient. Should there be any questions regarding this interpretation, please call [phone]. If you are unable to reach us at the number above, please feel free to contact [facility] eRadiology at [phone]. DIVISION OF RADIOLOGY * * *Final Report* * * DATE OF EXAM: Feb 09 2025 12:07PM [facility] 0530 - CT ABD/PEL W IVCON / PROCEDURE REASON: multiple diagnoses * * * * Physician Interpretation * * * * RESULT: EXAMINATION: CT ABDOMEN AND PELVIS WITH IV CONTRAST CLINICAL HISTORY: Colon cancer follow-up TECHNIQUE: CT of the abdomen and pelvis was performed using standard technique, scanning from just above the dome of the diaphragm to the symphysis pubis. MQ: CTAP_3 Contrast: IV: 100 ml of Omnipaque 350 Oral: 500 ml of Omni 240 10-25ml diluted with water CT Radiation dose: Integrated Dose-length product (DLP) for this visit = 1476 mGy*cm. CT Dose Reduction Employed: mAs-kVp adjusted based on patient size-age COMPARISON: 10/27/24 RESULT: Liver: No mass. Biliary: No bile duct dilation. Cholelithiasis. Spleen: No mass. Mildly enlarged measuring 14-15 cm in length, stable. Pancreas: No mass or duct dilation. Adrenals: No mass. Kidneys: 1-2 mm nonobstructing left renal stones. No evidence of hydronephrosis or suspicious enhancing renal mass. GI tract: No evidence of bowel obstruction. A surgical staple line is noted in the rectosigmoid colon. Lymph nodes: Abdominal lymphadenopathy, stable. For example (short axis measurement): 1.0 cm left paraceliac (3:34) 1.9 cm portacaval (3: 45) Mesentery/Peritoneum: No ascites or mass. Retroperitoneum: No mass. Vasculature: - Abdominal aorta and iliac arteries: Atherosclerotic calcifications without aneurysm. - Celiac and SMA: Patent without stenosis. - Portal venous system (SMV, splenic vein, portal vein and branches): Patent with portosystemic venous collaterals. - Hepatic veins: Patent. Pelvis: No mass, ascites or fluid collection. Urinary bladder is decompressed. Bones/Soft Tissues: Sclerotic foci in the right superior acetabulum and left proximal femur are stable, most likely bone islands. No new osseous abnormalities. Fat-containing umbilical hernia. Lower thorax: A chest CT performed will be reported separately. Tray Checker (topogram) images: No additional findings. DIVISION OF RADIOLOGY Provider, [facility] - 02/09/2025 * * *Final Report* * * DATE OF EXAM: Feb 09 2025 12:07PM [facility] 0530 - CT ABD/PEL W IVCON / PROCEDURE REASON: multiple diagnoses * * * * Physician Interpretation * * * * RESULT: EXAMINATION: CT ABDOMEN AND PELVIS WITH IV CONTRAST CLINICAL HISTORY: Colon cancer follow-up TECHNIQUE: CT of the abdomen and pelvis was performed using standard technique, scanning from just above the dome of the diaphragm to the symphysis pubis. MQ: CTAP_3 Contrast: IV: 100 ml of Omnipaque 350 Oral: 500 ml of Omni 240 10-25ml diluted with water CT Radiation dose: Integrated Dose-length product (DLP) for this visit = 1476 mGy*cm. CT Dose Reduction Employed: mAs-kVp adjusted based on patient size-age COMPARISON: 10/27/24 RESULT: Liver: No mass. Biliary: No bile duct dilation. Cholelithiasis. Spleen: No mass. Mildly enlarged measuring 14-15 cm in length, stable. Pancreas: No mass or duct dilation. Adrenals: No mass. Kidneys: 1-2 mm nonobstructing left renal stones. No evidence of hydronephrosis or suspicious enhancing renal mass. GI tract: No evidence of bowel obstruction. A surgical staple line is noted in the rectosigmoid colon. Lymph nodes: Abdominal lymphadenopathy, stable. For example (short axis measurement): 1.0 cm left paraceliac (3:34) 1.9 cm portacaval (3: 45) Mesentery/Peritoneum: No ascites or mass. Retroperitoneum: No mass. Vasculature: - Abdominal aorta and iliac arteries: Atherosclerotic calcifications without aneurysm. - Celiac and SMA: Patent without stenosis. - Portal venous system (SMV, splenic vein, portal vein and branches): Patent with portosystemic venous collaterals. - Hepatic veins: Patent. Pelvis: No mass, ascites or fluid collection. Urinary bladder is decompressed. Bones/Soft Tissues: Sclerotic foci in the right superior acetabulum and left proximal femur are stable, most likely bone islands. No new osseous abnormalities. Fat-containing umbilical hernia. Lower thorax: A chest CT performed will be reported separately. Tray Checker (topogram) images: No additional findings. IMPRESSION IMPRESSION: 1. No interval change since 10/27/24. 2. Mild splenomegaly and mild to moderate abdominal lymphadenopathy, stable. 3. Cholelithiasis. 4. Nonobstructing left renal stones. Transcribe Date/Time: Feb 09 2025 2:33P Dictated by: PAULETTE VALDIVIA MD This examination was interpreted and the report reviewed and electronically signed by: PAULETTE VALDIVIA MD on Feb 09 2025 3:01PM EST Thank you for allowing us to participate in the care of your patient. Should there be any questions regarding this interpretation, please call [phone]. If you are unable to reach us at the number above, please feel free to contact [facility] eRadiology at [phone]. [facility] CT Abdomen and Pelvis W cont rast IVOrdered By: [facility] Provider on 02-09-[address] [facility] [address] CHEST W IVCONon CT CHEST W IVCON * * *Final Report* * * DATE OF EXAM: Feb 09 2025 12:07PM [facility] 0539 - CT CHEST W IVCON / PROCEDURE REASON: multiple diagnoses * * * * Physician Interpretation * * * * RESULT: EXAMINATION: CHEST CT WITH CONTRAST CLINICAL HISTORY: Colon cancer follow-up Technique: Spiral CT acquisition of the chest from the thoracic inlet to the upper abdomen following IV contrast. MQ: CTCW_6 Contrast: 100 mL Omnipaque [address] Radiation dose: Integrated Dose-length product (DLP) for this visit = 1476 mGy*cm CT Dose Reduction Employed: mAs-kVp adjusted based on patient size-age Comparison: 10/27/24, 11/07/23, 06/22/23 RESULT: Limitations: None. Lines, tubes, and devices: Right-sided Port-A-Cath Lung parenchyma and airways: Punctate calcified granulomas are noted. Noncalcified subcentimeter nodular opacities and groundglass opacities measuring up to 7 mm, stable since 06/22/23. For example: Right lower lobe (4:126 , 127) Left upper lobe (4: 47) No new airspace opacities. The central airways are patent. Pleural space: No pleural effusion. No pleural thickening. Lower neck, lymph nodes, and mediastinum: The imaged thyroid gland is normal. Calcified mediastinal and right hilar lymph nodes are identified. No evidence of enlarged noncalcified mediastinal lymph nodes. Heart, pericardium, and thoracic vessels: The thoracic aorta and main pulmonary artery are normal in caliber. The cardiac chambers are normal in size. Atherosclerotic coronary artery calcifications are noted. Mitral annular calcifications are noted. No pericardial effusion or thickening. Bones and soft tissues: No new osseous abnormalities. Upper abdomen: Please refer to the abdomen CT scan report for the abdomen findings. Tray Checker (topogram) images: No additional findings. IMPRESSION: 1. No interval change since 10/27/24. 2. Several subcentimeter nodular opacities measuring up to 7 mm, stable since 06/22/23. 3. Findings compatible with previous granulomatous disease. Transcribe Date/Time: Feb 09 2025 2:19P Dictated by: PAULETTE VALDIVIA MD This examination was interpreted and the report reviewed and electronically signed by: PAULETTE VALDIVIA MD on Feb 09 2025 2:43PM EST Thank you for allowing us to participate in the care of your patient. Should there be any questions regarding this interpretation, please call [phone]. If you are unable to reach us at the number above, please feel free to contact [facility] eRadiology at [phone]. [id number] Normal [facility] CT Chest W contrast Demarco IMPRESSION: 1. No interval change since 10/27/24. 2. Several subcentimeter nodular opacities measuring up to 7 mm, stable since 06/22/23. 3. Findings compatible with previous granulomatous disease. Transcribe Date/Time: Feb 09 2025 2:19P Dictated by: PAULETTE VALDIVIA MD This examination was interpreted and the report reviewed and electronically signed by: PAULETTE VALDIVIA MD on Feb 09 2025 2:43PM EST Thank you for allowing us to participate in the care of your patient. Should there be any questions regarding this interpretation, please call [phone]. If you are unable to reach us at the number above, please feel free to contact [facility] eRadiology at [phone]. DIVISION OF RADIOLOGY * * *Final Report* * * DATE OF EXAM: Feb 09 2025 12:07PM [facility] 0539 - CT CHEST W IVCON / PROCEDURE REASON: multiple diagnoses * * * * Physician Interpretation * * * * RESULT: EXAMINATION: CHEST CT WITH CONTRAST CLINICAL HISTORY: Colon cancer follow-up Technique: Spiral CT acquisition of the chest from the thoracic inlet to the upper abdomen following IV contrast. MQ: CTCW_6 Contrast: 100 mL Omnipaque [address] Radiation dose: Integrated Dose-length product (DLP) for this visit = 1476 mGy*cm CT Dose Reduction Employed: mAs-kVp adjusted based on patient size-age Comparison: 10/27/24, 11/07/23, 06/22/23 RESULT: Limitations: None. Lines, tubes, and devices: Right-sided Port-A-Cath Lung parenchyma and airways: Punctate calcified granulomas are noted. Noncalcified subcentimeter nodular opacities and groundglass opacities measuring up to 7 mm, stable since 06/22/23. For example: Right lower lobe (4:126 , 127) Left upper lobe (4: 47) No new airspace opacities. The central airways are patent. Pleural space: No pleural effusion. No pleural thickening. Lower neck, lymph nodes, and mediastinum: The imaged thyroid gland is normal. Calcified mediastinal and right hilar lymph nodes are identified. No evidence of enlarged noncalcified mediastinal lymph nodes. Heart, pericardium, and thoracic vessels: The thoracic aorta and main pulmonary artery are normal in caliber. The cardiac chambers are normal in size. Atherosclerotic coronary artery calcifications are noted. Mitral annular calcifications are noted. No pericardial effusion or thickening. Bones and soft tissues: No new osseous abnormalities. Upper abdomen: Please refer to the abdomen CT scan report for the abdomen findings. Tray Checker (topogram) images: No additional findings. DIVISION OF RADIOLOGY Provider, [facility] - 02/09/2025 * * *Final Report* * * DATE OF EXAM: Feb 09 2025 12:07PM [facility] 0539 - CT CHEST W IVCON / PROCEDURE REASON: multiple diagnoses * * * * Physician Interpretation * * * * RESULT: EXAMINATION: CHEST CT WITH CONTRAST CLINICAL HISTORY: Colon cancer follow-up Technique: Spiral CT acquisition of the chest from the thoracic inlet to the upper abdomen following IV contrast. MQ: CTCW_6 Contrast: 100 mL Omnipaque [address] Radiation dose: Integrated Dose-length product (DLP) for this visit = 1476 mGy*cm CT Dose Reduction Employed: mAs-kVp adjusted based on patient size-age Comparison: 10/27/24, 11/07/23, 06/22/23 RESULT: Limitations: None. Lines, tubes, and devices: Right-sided Port-A-Cath Lung parenchyma and airways: Punctate calcified granulomas are noted. Noncalcified subcentimeter nodular opacities and groundglass opacities measuring up to 7 mm, stable since 06/22/23. For example: Right lower lobe (4:126 , 127) Left upper lobe (4: 47) No new airspace opacities. The central airways are patent. Pleural space: No pleural effusion. No pleural thickening. Lower neck, lymph nodes, and mediastinum: The imaged thyroid gland is normal. Calcified mediastinal and right hilar lymph nodes are identified. No evidence of enlarged noncalcified mediastinal lymph nodes. Heart, pericardium, and thoracic vessels: The thoracic aorta and main pulmonary artery are normal in caliber. The cardiac chambers are normal in size. Atherosclerotic coronary artery calcifications are noted. Mitral annular calcifications are noted. No pericardial effusion or thickening. Bones and soft tissues: No new osseous abnormalities. Upper abdomen: Please refer to the abdomen CT scan report for the abdomen findings. Tray Checker (topogram) images: No additional findings. IMPRESSION IMPRESSION: 1. No interval change since 10/27/24. 2. Several subcentimeter nodular opacities measuring up to 7 mm, stable since 06/22/23. 3. Findings compatible with previous granulomatous disease. Transcribe Date/Time: Feb 09 2025 2:19P Dictated by: PAULETTE VALDIVIA MD This examination was interpreted and the report reviewed and electronically signed by: PAULETTE VALDIVIA MD on Feb 09 2025 2:43PM EST Thank you for allowing us to participate in the care of your patient. Should there be any questions regarding this interpretation, please call [phone]. If you are unable to reach us at the number above, please feel free to contact [facility] eRadiology at [phone]. [facility] Comprehensive metabolic 2000 panelOrdered By: Yevgeniy Kuo on 02-09-2025 Albumin [Mass/Vol] 4.1 g/dL 3.9 - 4.9 g/dL [facility] ALP [Catalytic activity/Vol] 72 U/L 34 - 123 U/L [facility] ALT [Catalytic activity/Vol] 15 U/L 7 - 38 U/L [facility] Anion gap [Moles/Vol] 8 mmol/L 8 - 15 mmol/L [facility] AST [Catalytic activity/Vol] 18 U/L 13 - 35 U/L [facility] Bilirubin [Mass/Vol] 0.3 mg/dL 0.2 - 1 .3 mg/dL [facility] Calcium [Mass/Vol] 9.5 mg/dL 8.5 - 10. 2 mg/dL [facility] Chloride [Moles/Vol] 106 mmol/L 98 - 10 7 mmol/L [facility] CO2 [Moles/Vol] 25 mmol/L 22 - 30 mmol/L [facility] Creatinine [Mass/Vol] 0.95 mg/dL 0.58 - 0.96 mg/dL [facility] GFR/1.73 sq M.predicted among non-blacks MDRD (S/P/Bld) [Vol rate/Area] 66 mL/min/{1.73_m2} - PINF [facility] Comment on above: Estimated Glomerular Filtration Rate (eGFR) is calculated using the 2020 CKD-EPI creatinine equation. This equation utilizes serum creatinine, sex, and age as parameters. The creatinine assay has traceable calibration to isotope dilution-mass spectrometry. Refer to KDIGO guidelines for clinical interpretation. In patients with unstable renal function, e.g. those with acute kidney injury, the eGFR may not accurately reflect actual GFR. Glucose [Mass/Vol] 121 mg/dL High 74 - 99 mg/dL [facility] Comment on above: The [place] Diab[employer] Association (ADA) provides guidance for cutoff values [...] Standards of Medical Care in Diabetes 2016, [place] [employer]. Diabetes Care. 2016.39(Suppl 1). Interpretation and review of laboratory results Abnormal [facility] Potassium [Moles/Vol] 3.9 mmol/L 3.7 - 5.1 mmol/L [facility] Protein [Mass/Vol] 6.3 g/dL 6.3 - 8.0 g/dL [facility] Sodium [Moles/Vol] 139 mmol/L 136 - 144 mmol/L [facility] Urea nitrogen [Mass/Vol] 14 mg/dL 7 - 21 mg/dL [facility] Comprehensive metabolic 2000 panelon 02-09-2025 Albumin [Mass/Vol] 4.1 g/dL Normal 3.9-4.9 [facility] Comment on above: Order Comment: Speci men Type: BLOOD SPECIMENOrdering Facility: [facility] Address: [address] [place] [address] Performed By: #### 2 4323-8 ####[facility] LABCLIA [id number] [place] [address] ALP [Catalytic activity/Vol] 72 U/L Normal 34-123 [facility] Comment on above: Order Comment: Speci men Type: BLOOD SPECIMENOrdering Facility: [facility] Address: [address] [place] [address] Performed By: #### 2 4323-8 ####[facility] LABCLIA [id number] [place] [address] ALT [Catalytic activity/Vol] 15 U/L Normal 7-38 [facility] Comment on above: Order Comment: Speci men Type: BLOOD SPECIMENOrdering Facility: [facility] Address: [address] [place] [address] Performed By: #### 2 4323-8 ####[facility] LABCLIA [id number] [place] [address] Anion gap [Moles/Vol] 8 mmol/L Normal 8-15 [facility] Comment on above: Order Comment: Speci men Type: BLOOD SPECIMENOrdering Facility: [facility] Address: [address] [place] [address] Performed By: #### 2 4323-8 ####[facility] LABCLIA [id number] [place] [address] AST [Catalytic activity/Vol] 18 U/L Normal 13-35 [facility] Comment on above: Order Comment: Speci men Type: BLOOD SPECIMENOrdering Facility: [facility] Address: [address] [place] [address] Performed By: #### 2 4323-8 ####[facility] LABCLIA [id number] [place] [address] Bilirubin [Mass/Vol] 0.3 mg/dL Normal 0.2-1.3 [facility] Comment on above: Order Comment: Speci men Type: BLOOD SPECIMENOrdering Facility: [facility] Address: [address] [place] [address] Performed By: #### 2 4323-8 ####[facility] LABCLIA [id number] [place] [address] Calcium [Mass/Vol] 9.5 mg/dL Normal 8.5-10.2 [facility] Comment on above: Order Comment: Speci men Type: BLOOD SPECIMENOrdering Facility: [facility] Address: [address] [place] [address] Performed By: #### 2 4323-8 ####[facility] LABCLIA [id number] [place] [address] Chloride [Moles/Vol] 106 mmol/L Normal 98-107 [facility] Comment on above: Order Comment: Speci men Type: BLOOD SPECIMENOrdering Facility: [facility] Address: [address] [place] [address] Performed By: #### 2 4323-8 ####[facility] LABCLIA [id number] [place] [address] CO2 [Moles/Vol] 25 mmol/L Normal 22-30 [facility] Comment on above: Order Comment: Speci men Type: BLOOD SPECIMENOrdering Facility: [facility] Address: [address] [place] [address] Performed By: #### 2 4323-8 ####[facility] LABCLIA [id number] [place] [address] Creatinine [Mass/Vol] 0.95 mg/dL Normal 0.58-0.96 [facility] Comment on above: Order Comment: Fatou nava Type: BLOOD SPECIMENOrdering Facility: [facility] Address: [address] [place] [address] Performed By: #### 2 4323-8 ####[facility] LABCLIA [id number] [place] [address] Creatinine and Glomerular filtration rate.predicted panel (S/P/Bld) 66 mL/min/1.73m??? Normal >=60 [facility] Comment on above: Order Comment: Fatou nava Type: BLOOD SPECIMENOrdering Facility: [facility] Address: [address] [place] [address] Result Comment: Kelsey mated Glomerular Filtration Rate [...] actual GFR. Performed By: #### 2 4323-8 ####[facility] LABCLIA [id number] [place] [address] Glucose [Mass/Vol] 121 mg/dL High 74-99 [facility] Comment on above: Order Comment: Fatou nava Type: BLOOD SPECIMENOrdering Facility: [facility] Address: [address] [place] [address] Result Comment: The [place] Diabetes Association (ADA) provides guidance for cutoff [...] Standards of Medical Care in Diabetes 2016, [place] [employer]. Diabetes Care. 2016.39(Suppl 1). Performed By: #### 2 4323-8 ####[facility] LABCLIA [id number] [place] [address] Potassium [Moles/Vol] 3.9 mmol/L Normal 3.7-5.1 [facility] Comment on above: Order Comment: Speci men Type: BLOOD SPECIMENOrdering Facility: [facility] Address: [address] [place] [address] Performed By: #### 2 4323-8 ####[facility] LABCLIA [id number] [place] [address] Protein [Mass/Vol] 6.3 g/dL Normal 6.3-8.0 [facility] Comment on above: Order Comment: Speci men Type: BLOOD SPECIMENOrdering Facility: [facility] Address: [address] [place] [address] Performed By: #### 2 4323-8 ####[facility] LABCLIA [id number] [place] [address] Sodium [Moles/Vol] 139 mmol/L Normal 136-144 [facility] Comment on above: Order Comment: Speci men Type: BLOOD SPECIMENOrdering Facility: [facility] Address: [address] [place] [address] Performed By: #### 2 4323-8 ####[facility] LABCLIA [id number] [place] [address] Urea nitrogen [Mass/Vol] 14 mg/dL Normal 7-21 [facility] Comment on above: Order Comment: Speci men Type: BLOOD SPECIMENOrdering Facility: [facility] Address: [address] [place] [address] Performed By: #### 2 4323-8 ####[facility] LABCLIA [id number] [place] [address] No Panel Informationon 02-09 Radiology Study observation (narrative) [facility] CNOVSPon 11-03-2024 CNOVSP Visit (SP) Office (H EMASA) -- LONJAIMENANCY Adrian ([id number]) 1960 F Date Time Provider Department 11/03/24 9:20 AM JOSE WING During your visit today, we recorded the following information about you: Temperature Pulse Respiration Blood pressure 96.9 degrees 78/minute 16/minute 163/83 Weight Height 102.2 kg 1.626 m Jose Wing MD 11/03/2024 7:57 PM Signed NAME: Nancy Sue CLINIC NO.: [id number] DATE OF SERVICE: November 03, 2024 (Dianne) Some elements in this clinic note that are critical to medical decision making have been carefully reviewed and included from a prior clinic note dated: July 14, 2024 (Dianne) Referring Provider: Kaley Francois Additional Clinicians involved in Nancy Sue's care: Dr. Justin Buckner, Dr. 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 Final path at resection was Stage I - no treatment response noted on pathology evaluation. Started FOLFOX on 08/29/2023. Cancer Staging Cancer of sigmoid (HCC) Staging form: Colon and Rectum, AJCC 8th Edition - Clinical stage from 06/29/2023: Stage IVB (cTX, cNX, cM1b) - Signed by Jose Wing MD on 07/20/2023 - Pathologic stage from 01/03/2024: Stage I (ypT2, pN0, cM0) - Signed by Jose Wing MD on 01/13/2024 LN's identified are borderline - may be Overstaged. Pulmonary GPS Biopsy of Right lung lesion - Carcinoid. PLAN: CT CAP with labs (with port) in 3 months RTC in 1 week after to review _- HPI: CASE HISTORY: Reverse Chronological Order 10/27/2024 - CT CAP: Chest: Stable CT of the chest. Stable appearance of bilateral nodular opacities. No new nodules are identified. No evidence of bulky intrathoracic lymphadenopathy. A/P: Postsurgical changes, without evidence of new abdominal or pelvic metastatic disease. Intra-abdominal lymphadenopathy which is either stable or slightly decreased in size when compared to prior exam. New fluid collection within a surgical scar, likely representing a seroma or hematoma. 10/27/2024 - CEA: 0.8 02/22/2024-02/24/2024 - Admitted for ileostomy closure 01/17/2024-01/19/2024 - Admitted at [facility] for skin irritation at stoma site 01/11/2024 - CEA: 0.7 12/28/2023 - Laparoscopic converted to open low anterior resection, Splenic flexure mobilization, Diverting loop ileostomy, Flexible Sigmoidoscopy: Dr. Alessandro Yanes Hepatic artery lymph node, excision: - One lymph node, negative for malignancy (0/1). B. Sigmoid colon and proximal rectum, resection: - Residual invasive adenocarcinoma (see synoptic report). - One additional tubular adenoma. - Diverticular disease with associated focal active inflammation. - Sixteen lymph nodes, negative for malignancy (0/16). C. Distal donut, excision: - Segment of rectum with no diagnostic abnormality. 11/07/2023 - CT CAP: Chest: Streaky scarring/discoid atelectasis in the left upper lobe, increased since 08/13/23. Several subcentimeter nodular opacities measuring up to 8 mm, stable since 06/22/23. Findings compatible with previous granulomatous disease. A/P: Mild splenomegaly, increased in size since 06/22/23. Lfuy-wn-yvnljtbs abdominal lymphadenopathy, stable. Increased streaky reticulation of the pelvic fat may represent post therapy changes or edema. Previously noted thickening of the rectosigmoid colon wall is less conspicuous. Sigmoid colon diverticulosis without evidence of diverticulitis. Nonobstructing left renal stones. 11/07/2023 - CEA: 1.2 08/29/2023-11/21/2023 - 5 cycles FOLFOX 08/29/2023 - CEA: 2.5 08/22/2023 - TB-FNA Right lower Lobe: - Neoplastic cells present derived from low-grade neuroendocrine tumor 07/13/2023 - CT PET: Intense uptake along more than 7 cm of the sigmoid colon consistent with known primary, associated with mildly prominent with lcga-no-zywbqhph FDG uptake in upper mesenteric and retroperitoneal lymphadenopathy. 0.7 cm right lower lobe lung nodule, below PET resolution. 07/06/2023 - CT Pelvis: Irregular circumferential distal sigmoid colonic wall thickening, extending over a length of 8 cm, compatible with known sigmoid colonic neoplasm. No metastatic disease within the pelvis. 06/22/2023 - CT CAP: Right lower lobe subcentimeter pulmonary nodules, larg (more content not included)... Normal [facility] CBC W Auto Differential pane l (Bld)on 10-27-2024 Basophils (Bld) [#/Vol] [facility] Basophils/100 WBC (Bld) 0.2 % [facility] Differential cell count method Nom (Bld) Auto [facility] Eosinophils (Bld) [#/Vol] 0.09 10*3/uL [facility] Eosinophils/100 WBC (Bld) 2 % [facility] Erythrocyte distribution width (RBC) [Ratio] 13.6 % 11.5 - 15.0 % [facility] Hematocrit (Bld) [Volume fraction] 37 % 36.0 - 46.0 % [facility] Hemoglobin (Bld) [Mass/Vol] 12.4 g/dL 11.5 - 15.5 g/dL [facility] Immature granulocytes (Bld) [#/Vol] NINF [facility] Immature granulocytes/100 WBC (Bld) 0.2 % [facility] Interpretation and review of laboratory results Abnormal [facility] Lymphocytes (Bld) [#/Vol] 1.53 10*3/uL [facility] Lymphocytes/100 WBC (Bld) 34.2 % [facility] MCH (RBC) [Entitic mass] 29.4 pg 26.0 - 34.0 pg [facility] MCHC (RBC) [Mass/Vol] 33.5 g/dL 30.5 - 36.0 g/dL [facility] MCV (RBC) [Entitic vol] 87.7 fL 80.0 - 100.0 fL [facility] Monocytes (Bld) [#/Vol] 0.25 10*3/uL [facility] Monocytes/100 WBC (Bld) 5.6 % [facility] Neutrophils (Bld) [#/Vol] 2.58 10*3/uL [facility] Neutrophils/100 WBC (Bld) 57.8 % [facility] Nucleated RBC (Bld) [#/Vol] NINF [facility] Nucleated RBC/100 WBC (Bld) [Ratio] 0 % /100 WBC [facility] Platelet mean volume (Bld) [Entitic vol] 10.6 fL 9.0 - 12.7 fL [facility] Platelets (Bld) [#/Vol] 117 10*3/uL Low [facility] Comment on above: Results checked and verified.No clot detected. RBC (Bld) [#/Vol] 4.22 10*6/uL 3.90 - 5.20 m/uL [facility] WBC (Bld) [#/Vol] 4.47 10*3/uL [facility] Basophils (Bld) [#/Vol] 10*3/uL Normal <0.11 [facility] Comment on above: Order Comment: Speci men Type: BLOOD SPECIMENOrdering Facility: [facility] Address: [address] [place] [address] Performed By: #### 5 7021-8 ####[facility] LABCLIA [id number] [place] [address] Basophils/100 WBC (Bld) 0.2 % Normal [facility] Comment on above: Order Comment: Speci men Type: BLOOD SPECIMENOrdering Facility: [facility] Address: [address] [place] [address] Performed By: #### 5 7021-8 ####[facility] LABCLIA [id number] [place] [address] Differential cell count method Nom (Bld) Auto Normal [facility] Comment on above: Order Comment: Speci men Type: BLOOD SPECIMENOrdering Facility: [facility] Address: [address] [place] [address] Performed By: #### 5 7021-8 ####[facility] LABCLIA [id number] [place] [address] Eosinophils (Bld) [#/Vol] 0.09 10*3/uL Normal <0.46 [facility] Comment on above: Order Comment: Speci men Type: BLOOD SPECIMENOrdering Facility: [facility] Address: [address] [place] [address] Performed By: #### 5 7021-8 ####[facility] LABCLIA [id number] [place] [address] Eosinophils/100 WBC (Bld) 2.0 % Normal [facility] Comment on above: Order Comment: Speci men Type: BLOOD SPECIMENOrdering Facility: [facility] Address: [address] [place] [address] Performed By: #### 5 7021-8 ####[facility] LABCLIA [id number] [place] [address] Erythrocyte distribution width (RBC) [Ratio] 13.6 % Normal 11.5-15.0 [facility] Comment on above: Order Comment: Speci men Type: BLOOD SPECIMENOrdering Facility: [facility] Address: [address] [place], [place] [address] Performed By: #### 5 7021-8 ####[facility] LABCLIA [id number] [place] [address] Hematocrit (Bld) [Volume fraction] 37.0 % Normal 36.0-46.0 [facility] Comment on above: Order Comment: Speci men Type: BLOOD SPECIMENOrdering Facility: [facility] Address: [address] [place] [address] Performed By: #### 5 7021-8 ####[facility] LABCLIA [id number] [place] [address] Hemoglobin (Bld) [Mass/Vol] 12.4 g/dL Normal 11.5-15.5 [facility] Comment on above: Order Comment: Speci men Type: BLOOD SPECIMENOrdering Facility: [facility] Address: [address] [place] [address] Performed By: #### 5 7021-8 ####[facility] LABCLIA [id number] [place] [address] Immature granulocytes (Bld) [#/Vol] 10*3/uL Normal <0.10 [facility] Comment on above: Order Comment: Speci men Type: BLOOD SPECIMENOrdering Facility: [facility] Address: [address] [place] [address] Performed By: #### 5 7021-8 ####[facility] LABCLIA [id number] [place] [address] Immature granulocytes/100 WBC (Bld) 0.2 % Normal [facility] Comment on above: Order Comment: Speci men Type: BLOOD SPECIMENOrdering Facility: [facility] Address: [address] [place] [address] Performed By: #### 5 7021-8 ####[facility] LABCLIA [id number] [place] [address] Lymphocytes (Bld) [#/Vol] 1.53 10*3/uL Normal 1.00-4.00 [facility] Comment on above: Order Comment: Speci men Type: BLOOD SPECIMENOrdering Facility: [facility] Address: [address] [place] [address] Performed By: #### 5 7021-8 ####[facility] LABCLIA [id number] [place] [address] Lymphocytes/100 WBC (Bld) 34.2 % Normal [facility] Comment on above: Order Comment: Speci men Type: BLOOD SPECIMENOrdering Facility: [facility] Address: [address] [place] [address] Performed By: #### 5 7021-8 ####[facility] LABCLIA [id number] [place] [address] MCH (RBC) [Entitic mass] 29.4 pg Normal 26.0-34.0 [facility] Comment on above: Order Comment: Speci men Type: BLOOD SPECIMENOrdering Facility: [facility] Address: [address] [place] [address] Performed By: #### 5 7021-8 ####[facility] LABCLIA [id number] [place] [address] MCHC (RBC) [Mass/Vol] 33.5 g/dL Normal 30.5-36.0 [facility] Comment on above: Order Comment: Speci men Type: BLOOD SPECIMENOrdering Facility: [facility] Address: [address] [place] [address] Performed By: #### 5 7021-8 ####[facility] LABCLIA [id number] [place] [address] MCV (RBC) [Entitic vol] 87.7 fL Normal 80.0-100.0 [facility] Comment on above: Order Comment: Speci men Type: BLOOD SPECIMENOrdering Facility: [facility] Address: [address] [place] [address] Performed By: #### 5 7021-8 ####[facility] LABCLIA [id number] [place] [address] Monocytes (Bld) [#/Vol] 0.25 10*3/uL Normal <0.87 [facility] Comment on above: Order Comment: Speci men Type: BLOOD SPECIMENOrdering Facility: [facility] Address: [address] [place] [address] Performed By: #### 5 7021-8 ####[facility] LABCLIA [id number] [place] [address] Monocytes/100 WBC (Bld) 5.6 % Normal [facility] Comment on above: Order Comment: Speci men Type: BLOOD SPECIMENOrdering Facility: [facility] Address: [address] [place] [address] Performed By: #### 5 7021-8 ####[facility] LABCLIA [id number] [place] [address] Neutrophils (Bld) [#/Vol] 2.58 10*3/uL Normal 1.45-7.50 [facility] Comment on above: Order Comment: Speci men Type: BLOOD SPECIMENOrdering Facility: [facility] Address: [address] [place] [address] Performed By: #### 5 7021-8 ####[facility] LABCLIA [id number] [place] [address] Neutrophils/100 WBC (Bld) 57.8 % Normal [facility] Comment on above: Order Comment: Speci men Type: BLOOD SPECIMENOrdering Facility: [facility] Address: [address] [place] [address] Performed By: #### 5 7021-8 ####[facility] LABCLIA [id number] [place] [address] Nucleated RBC (Bld) [#/Vol] 10*3/uL Normal <0.01 [facility] [facility] Comment on above: Order Comment: Speci men Type: BLOOD SPECIMENOrdering Facility: [facility] Address: [address] [place] [address] Performed By: #### 5 7021-8 ####[facility] LABCLIA [id number] [place] [address] Nucleated RBC/100 WBC (Bld) [Ratio] 0.0 /100 WBC Normal [facility] Comment on above: Order Comment: Speci men Type: BLOOD SPECIMENOrdering Facility: [facility] Address: [address] [place] [address] Performed By: #### 5 7021-8 ####[facility] LABCLIA [id number] [place] [address] Platelet mean volume (Bld) [Entitic vol] 10.6 fL Normal 9.0-12.7 [facility] Comment on above: Order Comment: Speci men Type: BLOOD SPECIMENOrdering Facility: [facility] Address: [address] [place] [address] Performed By: #### 5 7021-8 ####[facility] LABCLIA [id number] [place] [address] Platelets (Bld) [#/Vol] 117 10*3/uL Low 150-400 [facility] Comment on above: Order Comment: Speci men Type: BLOOD SPECIMENOrdering Facility: [facility] Address: [address] [place] [address] Result Comment: Resu lts checked and verified.No clot detected. Performed By: #### 5 7021-8 ####[facility] LABCLIA [id number] [place] [address] RBC (Bld) [#/Vol] 4.22 10*6/uL Normal 3.90-5.20 [facility] Comment on above: Order Comment: Speci men Type: BLOOD SPECIMENOrdering Facility: [facility] Address: [address] [place] [address] Performed By: #### 5 7021-8 ####[facility] LABCLIA [id number] [place] [address] WBC (Bld) [#/Vol] 4.47 10*3/uL Normal 3.70-11.00 [facility] Comment on above: Order Comment: Speci men Type: BLOOD SPECIMENOrdering Facility: [facility] Address: [address] [place] [address] Performed By: #### 5 7021-8 ####[facility] LABCLIA [id number] [place] [address] CEA SerPl-ncon 10-27-2024 Carcinoembryonic Ag [Mass/Vol] 0.8 ng/mL Normal <=2.9 [facility] Comment on above: Order Comment: Speci men Type: BLOOD SPECIMENOrdering Facility: [facility] Address: [address] [place] [address] Result Comment: Carc inoembryonic antigen test is used as an aid in monitoring response to treatment or recurrence in patients with established colorectal, breast, lung, prostatic, pancreatic, and ovarian carcinomas. Clinical correlation is required. The Carcinoembryonic antigen test was performed using the [employer] [place] [employer] DXI paramagnetic particle chemiluminescent immunoassay method. Results obtained with different assay methods or kits cannot be used interchangeably. Performed By: #### 2 039-6 ####[facility] LABCLIA [id number] [place] [address] [place] ABD/PEL W IVCONon 025 CT ABD/PEL W IVCON * * *Final Report* * * DATE OF EXAM: Oct 27 2024 10:31AM [facility] 0530 - CT ABD/PEL W IVCON / PROCEDURE REASON: Malignant neoplasm of sigmoid colon (HCC) * * * * Physician Interpretation * * * * RESULT: EXAMINATION: CT ABDOMEN AND PELVIS WITH IV CONTRAST CLINICAL HISTORY: Malignant neoplasm of sigmoid colon. TECHNIQUE: CT of the abdomen and pelvis was performed using standard technique, scanning from just above the dome of the diaphragm to the symphysis pubis. MQ: CTAP_3 Contrast: IV: 100 ml of Omnipaque 350 Oral: 500 ml of Omni 240 10-25ml diluted with water CT Radiation dose: Integrated Dose-length product (DLP) for this visit = 1645 mGy*cm. CT Dose Reduction Employed: Automated exposure control (AEC) COMPARISON: CT performed 10/30/2023 RESULT: Liver: No mass. Biliary: There is cholelithiasis without evidence of acute cholecystitis. No biliary ductal dilation is seen. Spleen: No mass. The spleen is mildly enlarged measuring 14.8 cm in craniocaudal dimension. Pancreas: No mass or duct dilation. Adrenals: No mass. Kidneys: A 4 mm nonobstructing calculus is seen in the interpolar region of the left kidney. No hydronephrosis is seen in either kidney. GI tract: The stomach and small bowel are unremarkable. There is no evidence of small bowel obstruction or wall thickening. Postsurgical changes are seen in the rectosigmoid colon. The colon is otherwise unremarkable. Lymph nodes: Multiple prominent upper abdominal lymph nodes are visualized. These include the following: Gastrohepatic ligament (3:30) 1.3 cm, previously 1.2 cm Portacaval (3:47) 1.7 cm, previously 2 cm Periportal (3:40) 0.8 cm, previously 1.4 cm Retrocaval (3:41) 1 cm, stable Mesentery/Peritoneum: No ascites or mass. Retroperitoneum: No mass. Vasculature: - Abdominal aorta and iliac arteries: Atherosclerotic calcifications without aneurysm. - Celiac and SMA: Patent without stenosis. - Portal venous system (SMV, splenic vein, portal vein and branches): Patent. - Hepatic veins: Patent. Pelvis: The urinary bladder is unremarkable. No pelvic mass or fluid collection is seen. Bones/Soft Tissues: There is a 2.7 x 2.6 cm fluid collection within a surgical scar, superficial to the rectus muscles (3:122), likely representing a seroma or hematoma. Superficial soft tissues are otherwise unremarkable. Degenerative changes are seen in the lumbar spine. No destructive osseous lesions are seen. Lower thorax: Unremarkable. Localizer images: No additional findings. IMPRESSION: 1. Postsurgical changes, without evidence of new abdominal or pelvic metastatic disease. 2. Intra-abdominal lymphadenopathy which is either stable or slightly decreased in size when compared to prior exam. 3. New fluid collection within a surgical scar, likely representing a seroma or hematoma. Transcribe Date/Time: Oct 27 2024 2:05P Dictated by: JUDITH JOLLEY MD This examination was interpreted and the report reviewed and electronically signed by: JUDITH JOLLEY MD on Oct 27 2024 3:35PM EST Thank you for allowing us to participate in the care of your patient. Should there be any questions regarding this interpretation, please call [phone]. If you are unable to reach us at the number above, please feel free to contact [facility] eRadiology at [phone]. [id number] Normal [facility] CT Abdomen and Pelvis W cont rast Demarco 10-27-2024 IMPRESSION: 1. Postsurgical changes, without evidence of new abdominal or pelvic metastatic disease. 2. Intra-abdominal lymphadenopathy which is either stable or slightly decreased in size when compared to prior exam. 3. New fluid collection within a surgical scar, likely representing a seroma or hematoma. Transcribe Date/Time: Oct 27 2024 2:05P Dictated by: JUDITH JOLLEY MD This examination was interpreted and the report reviewed and electronically signed by: JUDITH JOLLEY MD on Oct 27 2024 3:35PM EST Thank you for allowing us to participate in the care of your patient. Should there be any questions regarding this interpretation, please call [phone]. If you are unable to reach us at the number above, please feel free to contact [facility] eRadiology at [phone]. DIVISION OF RADIOLOGY * * *Final Report* * * DATE OF EXAM: Oct 27 2024 10:31AM [facility] 0530 - CT ABD/PEL W IVCON / PROCEDURE REASON: Malignant neoplasm of sigmoid colon (HCC) * * * * Physician Interpretation * * * * RESULT: EXAMINATION: CT ABDOMEN AND PELVIS WITH IV CONTRAST CLINICAL HISTORY: Malignant neoplasm of sigmoid colon. TECHNIQUE: CT of the abdomen and pelvis was performed using standard technique, scanning from just above the dome of the diaphragm to the symphysis pubis. MQ: CTAP_3 Contrast: IV: 100 ml of Omnipaque 350 Oral: 500 ml of Omni 240 10-25ml diluted with water CT Radiation dose: Integrated Dose-length product (DLP) for this visit = 1645 mGy*cm. CT Dose Reduction Employed: Automated exposure control (AEC) COMPARISON: CT performed 10/30/2023 RESULT: Liver: No mass. Biliary: There is cholelithiasis without evidence of acute cholecystitis. No biliary ductal dilation is seen. Spleen: No mass. The spleen is mildly enlarged measuring 14.8 cm in craniocaudal dimension. Pancreas: No mass or duct dilation. Adrenals: No mass. Kidneys: A 4 mm nonobstructing calculus is seen in the interpolar region of the left kidney. No hydronephrosis is seen in either kidney. GI tract: The stomach and small bowel are unremarkable. There is no evidence of small bowel obstruction or wall thickening. Postsurgical changes are seen in the rectosigmoid colon. The colon is otherwise unremarkable. Lymph nodes: Multiple prominent upper abdominal lymph nodes are visualized. These include the following: Gastrohepatic ligament (3:30) 1.3 cm, previously 1.2 cm Portacaval (3:47) 1.7 cm, previously 2 cm Periportal (3:40) 0.8 cm, previously 1.4 cm Retrocaval (3:41) 1 cm, stable Mesentery/Peritoneum: No ascites or mass. Retroperitoneum: No mass. Vasculature: - Abdominal aorta and iliac arteries: Atherosclerotic calcifications without aneurysm. - Celiac and SMA: Patent without stenosis. - Portal venous system (SMV, splenic vein, portal vein and branches): Patent. - Hepatic veins: Patent. Pelvis: The urinary bladder is unremarkable. No pelvic mass or fluid collection is seen. Bones/Soft Tissues: There is a 2.7 x 2.6 cm fluid collection within a surgical scar, superficial to the rectus muscles (3:122), likely representing a seroma or hematoma. Superficial soft tissues are otherwise unremarkable. Degenerative changes are seen in the lumbar spine. No destructive osseous lesions are seen. Lower thorax: Unremarkable. Localizer images: No additional findings. DIVISION OF RADIOLOGY Provider, [facility] - 10/27/2024 * * *Final Report* * * DATE OF EXAM: Oct 27 2024 10:31AM [facility] 0530 - CT ABD/PEL W IVCON / PROCEDURE REASON: Malignant neoplasm of sigmoid colon (HCC) * * * * Physician Interpretation * * * * RESULT: EXAMINATION: CT ABDOMEN AND PELVIS WITH IV CONTRAST CLINICAL HISTORY: Malignant neoplasm of sigmoid colon. TECHNIQUE: CT of the abdomen and pelvis was performed using standard technique, scanning from just above the dome of the diaphragm to the symphysis pubis. MQ: CTAP_3 Contrast: IV: 100 ml of Omnipaque 350 Oral: 500 ml of Omni 240 10-25ml diluted with water CT Radiation dose: Integrated Dose-length product (DLP) for this visit = 1645 mGy*cm. CT Dose Reduction Employed: Automated exposure control (AEC) COMPARISON: CT performed 10/30/2023 RESULT: Liver: No mass. Biliary: There is cholelithiasis without evidence of acute cholecystitis. No biliary ductal dilation is seen. Spleen: No mass. The spleen is mildly enlarged measuring 14.8 cm in craniocaudal dimension. Pancreas: No mass or duct dilation. Adrenals: No mass. Kidneys: A 4 mm nonobstructing calculus is seen in the interpolar region of the left kidney. No hydronephrosis is seen in either kidney. GI tract: The stomach and small bowel are unremarkable. There is no evidence of small bowel obstruction or wall thickening. Postsurgical changes are seen in the rectosigmoid colon. The colon is otherwise unremarkable. Lymph nodes: Multiple prominent upper abdominal lymph nodes are visualized. These include the following: Gastrohepatic ligament (3:30) 1.3 cm, previously 1.2 cm Portacaval (3:47) 1.7 cm, previously 2 cm Periportal (3:40) 0.8 cm, previously 1.4 cm Retrocaval (3:41) 1 cm, stable Mesentery/Peritoneum: No ascites or mass. Retroperitoneum: No mass. Vasculature: - Abdominal aorta and iliac arteries: Atherosclerotic calcifications without aneurysm. - Celiac and SMA: Patent without stenosis. - Portal venous system (SMV, splenic vein, portal vein and branches): Patent. - Hepatic veins: Patent. Pelvis: The urinary bladder is unremarkable. No pelvic mass or fluid collection is seen. Bones/Soft Tissues: There is a 2.7 x 2.6 cm fluid collection within a surgical scar, superficial to the rectus muscles (3:122), likely representing a seroma or hematoma. Superficial soft tissues are otherwise unremarkable. Degenerative changes are seen in the lumbar spine. No destructive osseous lesions are seen. Lower thorax: Unremarkable. Localizer images: No additional findings. IMPRESSION IMPRESSION: 1. Postsurgical changes, without evidence of new abdominal or pelvic metastatic disease. 2. Intra-abdominal lymphadenopathy which is either stable or slightly decreased in size when compared to prior exam. 3. New fluid collection within a surgical scar, likely representing a seroma or hematoma. Transcribe Date/Time: Oct 27 2024 2:05P Dictated by: JUDITH JOLLEY MD This examination was interpreted and the report reviewed and electronically signed by: JUDITH JOLLEY MD on Oct 27 2024 3:35PM EST Thank you for allowing us to participate in the care of your patient. Should there be any questions regarding this interpretation, please call [phone]. If you are unable to reach us at the number above, please feel free to contact [facility] eRadiology at [phone]. [facility] CT Abdomen and Pelvis W cont rast IVOrdered By: [facility] Provider on 10-27-2024 [facility] CT CHEST W IVCONon CT CHEST W IVCON * * *Final Report* * * DATE OF EXAM: Oct 27 2024 10:31AM [facility] 0539 - CT CHEST W IVCON / PROCEDURE REASON: Malignant neoplasm of sigmoid colon (HCC) * * * * Physician Interpretation * * * * RESULT: EXAMINATION: CHEST CT WITH CONTRAST CLINICAL HISTORY: History of colon cancer. Technique: Spiral CT acquisition of the chest from the thoracic inlet to the upper abdomen following IV contrast. MQ: CTCW_6 Contrast: 100 mL Omnipaque [address] Radiation dose: Integrated Dose-length product (DLP) for this visit = 1645 mGy*cm CT Dose Reduction Employed: Automated exposure control (AEC) Comparison: CT chest performed 11/07/2023 RESULT: Limitations: None. Lines, tubes, and devices: None. Lung parenchyma and airways: No lobar consolidation is noted. Bilateral nodular opacities are again noted. These include the following: Right lower lobe (4:84) 2 mm, stable Right lower lobe (4:130) 5 mm, stable Left upper lobe (4:50) 5 mm, stable The central airways are widely patent. Pleural space: No pleural effusion. No pleural thickening. Lower neck, lymph nodes, and mediastinum: The imaged thyroid gland is normal. No lymphadenopathy in the supraclavicular, axillary, mediastinal, or hilar regions. Heart, pericardium, and thoracic vessels: The thoracic aorta and main pulmonary artery are normal in caliber. The cardiac chambers are normal in size. No coronary artery atherosclerotic calcifications are noted, although the study is not optimized for coronary assessment. No pericardial effusion or thickening. Bones and soft tissues: No destructive bone lesion. Chest wall is unremarkable. Upper abdomen: A dedicated CT of the abdomen and pelvis was performed concurrently and is reported separately. Localizer images: No additional findings. IMPRESSION: 1. Stable CT of the chest. Stable appearance of bilateral nodular opacities. No new nodules are identified. 2. No evidence of bulky intrathoracic lymphadenopathy. Transcribe Date/Time: Oct 27 2024 1:49P Dictated by: JUDITH JOLLEY MD This examination was interpreted and the report reviewed and electronically signed by: JUDITH JOLLEY MD on Oct 27 2024 2:01PM EST Thank you for allowing us to participate in the care of your patient. Should there be any questions regarding this interpretation, please call [phone]. If you are unable to reach us at the number above, please feel free to contact [facility] at [phone]. [id number] Normal [facility] CT Chest W contrast Demarco IMPRESSION: 1. Stable CT of the chest. Stable appearance of bilateral nodular opacities. No new nodules are identified. 2. No evidence of bulky intrathoracic lymphadenopathy. Transcribe Date/Time: Oct 27 2024 1:49P Dictated by: JUDITH JOLLEY MD This examination was interpreted and the report reviewed and electronically signed by: JUDITH JOLLEY MD on Oct 27 2024 2:01PM EST Thank you for allowing us to participate in the care of your patient. Should there be any questions regarding this interpretation, please call [phone]. If you are unable to reach us at the number above, please feel free to contact [facility] eRadiology at [phone]. DIVISION OF RADIOLOGY * * *Final Report* * * DATE OF EXAM: Oct 27 2024 10:31AM [facility] 0539 - CT CHEST W IVCON / PROCEDURE REASON: Malignant neoplasm of sigmoid colon (HCC) * * * * Physician Interpretation * * * * RESULT: EXAMINATION: CHEST CT WITH CONTRAST CLINICAL HISTORY: History of colon cancer. Technique: Spiral CT acquisition of the chest from the thoracic inlet to the upper abdomen following IV contrast. MQ: CTCW_6 Contrast: 100 mL Omnipaque [address] Radiation dose: Integrated Dose-length product (DLP) for this visit = 1645 mGy*cm CT Dose Reduction Employed: Automated exposure control (AEC) Comparison: CT chest performed 11/07/2023 RESULT: Limitations: None. Lines, tubes, and devices: None. Lung parenchyma and airways: No lobar consolidation is noted. Bilateral nodular opacities are again noted. These include the following: Right lower lobe (4:84) 2 mm, stable Right lower lobe (4:130) 5 mm, stable Left upper lobe (4:50) 5 mm, stable The central airways are widely patent. Pleural space: No pleural effusion. No pleural thickening. Lower neck, lymph nodes, and mediastinum: The imaged thyroid gland is normal. No lymphadenopathy in the supraclavicular, axillary, mediastinal, or hilar regions. Heart, pericardium, and thoracic vessels: The thoracic aorta and main pulmonary artery are normal in caliber. The cardiac chambers are normal in size. No coronary artery atherosclerotic calcifications are noted, although the study is not optimized for coronary assessment. No pericardial effusion or thickening. Bones and soft tissues: No destructive bone lesion. Chest wall is unremarkable. Upper abdomen: A dedicated CT of the abdomen and pelvis was performed concurrently and is reported separately. Localizer images: No additional findings. DIVISION OF RADIOLOGY Provider, [facility] - 10/27/2024 * * *Final Report* * * DATE OF EXAM: Oct 27 2024 10:31AM [facility] 0539 - CT CHEST W IVCON / PROCEDURE REASON: Malignant neoplasm of sigmoid colon (HCC) * * * * Physician Interpretation * * * * RESULT: EXAMINATION: CHEST CT WITH CONTRAST CLINICAL HISTORY: History of colon cancer. Technique: Spiral CT acquisition of the chest from the thoracic inlet to the upper abdomen following IV contrast. MQ: CTCW_6 Contrast: 100 mL Omnipaque [address] Radiation dose: Integrated Dose-length product (DLP) for this visit = 1645 mGy*cm CT Dose Reduction Employed: Automated exposure control (AEC) Comparison: CT chest performed 11/07/2023 RESULT: Limitations: None. Lines, tubes, and devices: None. Lung parenchyma and airways: No lobar consolidation is noted. Bilateral nodular opacities are again noted. These include the following: Right lower lobe (4:84) 2 mm, stable Right lower lobe (4:130) 5 mm, stable Left upper lobe (4:50) 5 mm, stable The central airways are widely patent. Pleural space: No pleural effusion. No pleural thickening. Lower neck, lymph nodes, and mediastinum: The imaged thyroid gland is normal. No lymphadenopathy in the supraclavicular, axillary, mediastinal, or hilar regions. Heart, pericardium, and thoracic vessels: The thoracic aorta and main pulmonary artery are normal in caliber. The cardiac chambers are normal in size. No coronary artery atherosclerotic calcifications are noted, although the study is not optimized for coronary assessment. No pericardial effusion or thickening. Bones and soft tissues: No destructive bone lesion. Chest wall is unremarkable. Upper abdomen: A dedicated CT of the abdomen and pelvis was performed concurrently and is reported separately. Localizer images: No additional findings. IMPRESSION IMPRESSION: 1. Stable CT of the chest. Stable appearance of bilateral nodular opacities. No new nodules are identified. 2. No evidence of bulky intrathoracic lymphadenopathy. Transcribe Date/Time: Oct 27 2024 1:49P Dictated by: JUDITH JOLLEY MD This examination was interpreted and the report reviewed and electronically signed by: JUDITH JOLLEY MD on Oct 27 2024 2:01PM EST Thank you for allowing us to participate in the care of your patient. Should there be any questions regarding this interpretation, please call [phone]. If you are unable to reach us at the number above, please feel free to contact [facility] eRadiology at [phone]. [facility] Comprehensive metabolic 2000 panelOrdered By: Lyudmila Kim on 10-27-2024 Albumin [Mass/Vol] 4.4 g/dL 3.9 - 4.9 g/dL [facility] ALP [Catalytic activity/Vol] 66 U/L 34 - 123 U/L [facility] ALT [Catalytic activity/Vol] 17 U/L 7 - 38 U/L [facility] Anion gap [Moles/Vol] 9 mmol/L 8 - 15 mmol/L [facility] AST [Catalytic activity/Vol] 18 U/L 13 - 35 U/L [facility] Bilirubin [Mass/Vol] 0.4 mg/dL 0.2 - 1 .3 mg/dL [facility] Calcium [Mass/Vol] 9.4 mg/dL 8.5 - 10. 2 mg/dL [facility] Chloride [Moles/Vol] 103 mmol/L 98 - 10 7 mmol/L [facility] CO2 [Moles/Vol] 27 mmol/L 22 - 30 mmol/L [facility] Creatinine [Mass/Vol] 0.99 mg/dL High 0.58 - 0.96 mg/dL [facility] GFR/1.73 sq M.predicted among non-blacks MDRD (S/P/Bld) [Vol rate/Area] 63 mL/min/{1.73_m2} - PINF [facility] Comment on above: Estimated Glomerular Filtration Rate (eGFR) is calculated using the 2020 CKD-EPI creatinine equation. This equation utilizes serum creatinine, sex, and age as parameters. The creatinine assay has traceable calibration to isotope dilution-mass spectrometry. Refer to KDIGO guidelines for clinical interpretation. In patients with unstable renal function, e.g. those with acute kidney injury, the eGFR may not accurately reflect actual GFR. Glucose [Mass/Vol] 99 mg/dL 74 - 99 mg/dL [facility] Comment on above: The [place] [employer] (ADA) provides guidance for cutoff values [...] Standards of Medical Care in Diabetes 2016, [place] [employer]. Diabetes Care. 2016.39(Suppl 1). Interpretation and review of laboratory results Abnormal [facility] Potassium [Moles/Vol] 3.8 mmol/L 3.7 - 5.1 mmol/L [facility] Protein [Mass/Vol] 6.6 g/dL 6.3 - 8.0 g/dL [facility] Sodium [Moles/Vol] 139 mmol/L 136 - 144 mmol/L [facility] Urea nitrogen [Mass/Vol] 15 mg/dL 7 - 21 mg/dL [facility] Comprehensive metabolic 2000 panelon 10-27-2024 Albumin [Mass/Vol] 4.4 g/dL Normal 3.9-4.9 [facility] Comment on above: Order Comment: Speci men Type: BLOOD SPECIMENOrdering Facility: [facility] Address: [address] [place] [address] Performed By: #### 2 4323-8 ####[facility] LABCLIA [id number] [place] [address] ALP [Catalytic activity/Vol] 66 U/L Normal 34-123 [facility] Comment on above: Order Comment: Speci men Type: BLOOD SPECIMENOrdering Facility: [facility] Address: [address] [place] [address] Performed By: #### 2 4323-8 ####[facility] LABCLIA [id number] [place] [address] ALT [Catalytic activity/Vol] 17 U/L Normal 7-38 [facility] Comment on above: Order Comment: Speci men Type: BLOOD SPECIMENOrdering Facility: [facility] Address: [address] [place] [address] Performed By: #### 2 4323-8 ####[facility] LABCLIA [id number] [place] [address] Anion gap [Moles/Vol] 9 mmol/L Normal 8-15 [facility] Comment on above: Order Comment: Speci men Type: BLOOD SPECIMENOrdering Facility: [facility] Address: [address] [place] [address] Performed By: #### 2 4323-8 ####[facility] LABCLIA [id number] [place] [address] AST [Catalytic activity/Vol] 18 U/L Normal 13-35 [facility] Comment on above: Order Comment: Speci men Type: BLOOD SPECIMENOrdering Facility: [facility] Address: [address] [place] [address] Performed By: #### 2 4323-8 ####[facility] LABCLIA [id number] [place] [address] Bilirubin [Mass/Vol] 0.4 mg/dL Normal 0.2-1.3 [facility] Comment on above: Order Comment: Speci men Type: BLOOD SPECIMENOrdering Facility: [facility] Address: [address] [place] [address] Performed By: #### 2 4323-8 ####[facility] LABCLIA [id number] [place] [address] Calcium [Mass/Vol] 9.4 mg/dL Normal 8.5-10.2 [facility] Comment on above: Order Comment: Speci men Type: BLOOD SPECIMENOrdering Facility: [facility] Address: [address] [place] [address] Performed By: #### 2 4323-8 ####[facility] LABCLIA [id number] [place] [address] Chloride [Moles/Vol] 103 mmol/L Normal 98-107 [facility] Comment on above: Order Comment: Speci men Type: BLOOD SPECIMENOrdering Facility: [facility] Address: [address] [place] [address] Performed By: #### 2 4323-8 ####[facility] LABCLIA [id number] [place] [address] CO2 [Moles/Vol] 27 mmol/L Normal 22-30 [facility] Comment on above: Order Comment: Speci men Type: BLOOD SPECIMENOrdering Facility: [facility] Address: [address] [place] [address] Performed By: #### 2 4323-8 ####[facility] LABCLIA [id number] [place] [address] Creatinine [Mass/Vol] 0.99 mg/dL High 0.58-0.96 [facility] Comment on above: Order Comment: Fatou nava Type: BLOOD SPECIMENOrdering Facility: [facility] Address: [address] [place] [address] Performed By: #### 2 4323-8 ####[facility] LABCLIA [id number] [place] [address] Creatinine and Glomerular filtration rate.predicted panel (S/P/Bld) 63 mL/min/1.73m??? Normal >=60 [facility] Comment on above: Order Comment: Fatou nava Type: BLOOD SPECIMENOrdering Facility: [facility] Address: [address] [place] [address] Result Comment: Kelsey mated Glomerular Filtration Rate [...] actual GFR. Performed By: #### 2 4323-8 ####[facility] LABCLIA [id number] [place] [address] Glucose [Mass/Vol] 99 mg/dL Normal 74-99 [facility] Comment on above: Order Comment: Fatou nava Type: BLOOD SPECIMENOrdering Facility: [facility] Address: [address] [place] [address] Result Comment: The [place] [employer] (ADA) provides guidance for cutoff [...] Standards of Medical Care in Diabetes 2016, [place] [employer]. Diabetes Care. 2016.39(Suppl 1). Performed By: #### 2 4323-8 ####[facility] LABCLIA [id number] [place] [address] Potassium [Moles/Vol] 3.8 mmol/L Normal 3.7-5.1 [facility] Comment on above: Order Comment: Speci men Type: BLOOD SPECIMENOrdering Facility: [facility] Address: [address] [place] [address] Performed By: #### 2 4323-8 ####[facility] LABCLIA [id number] [place] [address] Protein [Mass/Vol] 6.6 g/dL Normal 6.3-8.0 [facility] Comment on above: Order Comment: Speci men Type: BLOOD SPECIMENOrdering Facility: [facility] Address: [address] [place] [address] Performed By: #### 2 4323-8 ####[facility] LABCLIA [id number] [place] [address] Sodium [Moles/Vol] 139 mmol/L Normal 136-144 [facility] Comment on above: Order Comment: Speci men Type: BLOOD SPECIMENOrdering Facility: [facility] Address: [address] [place] [address] Performed By: #### 2 4323-8 ####[facility] LABCLIA [id number] [place] [address] Urea nitrogen [Mass/Vol] 15 mg/dL Normal 7-21 [facility] Comment on above: Order Comment: Speci men Type: BLOOD SPECIMENOrdering Facility: [facility] Address: [address] [place] [address] Performed By: #### 2 4323-8 ####[facility] LABCLIA [id number] [place] [address] FERRITINon 10-27-2024 Ferritin [Mass/Vol] 53.9 ng/mL 14.7 - 205.1 ng/mL [facility] FOLATE, SERUMon 10-27-2024 Folate [Mass/Vol] 8.5 ng/mL 4.7 - PINF ng/mL [facility] Ferritin SerPl-mCncon 2024 Ferritin [Mass/Vol] 53.9 ng/mL Normal 14.7-205.1 [facility] Comment on above: Order Comment: Speci men Type: BLOOD SPECIMENOrdering Facility: [facility] Address: [address] [place] [address] Performed By: #### 5 0190-8, 21319, 6-4, 8 ####[facility] LABCLIA [id number] [place] [address] [place] Folate SerPl-mCncon 10-27-19 Folate [Mass/Vol] 8.5 ng/mL Normal >4.7 [facility] Comment on above: Order Comment: Speci men Type: BLOOD SPECIMENOrdering Facility: [facility] Address: [address] [place] [address] Performed By: #### 5 0190-8, 21319, 2275-4, 8 ####[facility] LABCLIA [id number] [place] [address] [place] Iron and Iron binding capaci ty panelon 10-27-2024 Interpretation and review of laboratory results Normal [facility] Iron [Mass/Vol] 60 ug/dL 41 - 186 ug/dL [facility] Iron binding capacity [Mass/Vol] 341 ug/dL 232 - 386 ug/dL [facility] Iron/TIBC [Molar ratio] 17.6 % 15.0 - 57.0 % [facility] Iron [Mass/Vol] 60 ug/dL Normal 41-186 [facility] Comment on above: Order Comment: Speci men Type: BLOOD SPECIMENOrdering Facility: [facility] Address: [address] [place] [address] Performed By: #### 5 0190-8, 9, 2275-12, 2284-04 ####[facility] LABCLIA [id number] [address] [address] [place] Iron binding capacity [Mass/Vol] 341 ug/dL Normal 232-386 [facility] Comment on above: Order Comment: Speci men Type: BLOOD SPECIMENOrdering Facility: [facility] Address: [address] [place], [place] [address] Performed By: #### 5 0190-8, 9, 2275-12, 2284-04 ####[facility] LABCLIA [id number] [address] [address] [place] Iron/TIBC [Molar ratio] 17.6 % Normal 15.0-57.0 [facility] Comment on above: Order Comment: Speci men Type: BLOOD SPECIMENOrdering Facility: [facility] Address: [address] [place] [address] Performed By: #### 5 0190-8, 9, 2275-12, 2284-04 ####[facility] LABCLIA [id number] [place] [id number] [place] No Panel Informationon 10-27 Interpretation and review of laboratory results Normal [facility] Radiology Study observation (narrative) [facility] VITAMIN B12on 10-27-2024 Cobalamin (Vitamin B12) [Mass/Vol] 314 pg/mL 232 - 1245 pg/mL [facility] Vit B12 SerPl-mCncon 025 Cobalamin (Vitamin B12) [Mass/Vol] 314 pg/mL Normal 232-1245 [facility] Comment on above: Order Comment: Speci men Type: BLOOD SPECIMENOrdering Facility: [facility] Address: [address] [place] [address] Performed By: #### 5 0190-8, 9, 2275-12, 2284-04 ####[facility] LABCLNAPOLEON [id number] [place] [id number] [place] ANES POSTPROC EVALon 024 ANES POSTPROC EVAL HNO ID: [id number] Author: MATHEW CORNEJO MD Service: Anesthesiology Author Type: Anesthesiologist Type: Anesthesia Postprocedure Evaluation Filed: 08/04/2024 08:48 Note Text: POST ANESTHESIA EVALUATION NOTE : 1960 Procedure Summary Date: 08/04/24 Room / Location: [facility] Endoscopy - ENDO Anesthesia Start: 732 Anesthesia Stop: 799 Procedure: COLONOSCOPY SCREENING Diagnosis: History of colon cancer (High risk colon cancer surveillance: Personal history of colon cancer) Scheduled Providers: Kaley Francois MD; Mathew Cornejo I, MD; Luisa Beard APRN.TUBE REBUILDER Responsible Provider: Mathew Cornejo I, MD Anesthesia Type: MAC ASA Status: 3 Anesthesia Type: MAC Last Vitals Vitals Value Taken Time BP 123/66 08/04/24 0830 Temp 36 ?C (96.8 ?F) 08/04/24 0829 HR SpO2 62 08/04/24 0831 Resp 15 08/04/24 0830 SpO2 94 % 08/04/24 0831 Vitals shown include unfiled device data. Post Anesthesia Patient Status Patient Evaluation: PACU. PACU/ICU Patient Condition: stable. Anticipated Disposition: phase 2 then home. Neurological Status: aware and responsive. Pulmonary Status: breathing comfortably on room air Airway Control: returned to baseline unsupported. Cardiovascular Status: stable. Pain Management: clinically adequate Postoperative Hydration: acceptable. Intraoperative Events: no significant anesthesia events Post Operative Nausea/Vomiting Status: no significant post operative nausea or vomiting Recommendation: continue current plan of care. Anesthesia Observations No Documentation SIGNATURE: Mathew Cornejo MD PATIENT NAME: Nancy Sue DATE: August 04, 2024 TIME: 8:48 AM CSN: [id number] Normal [facility] ANES PRE-OPon 08-04-2024 ANES PRE-OP HNO ID: [id number] Author: MATHEW CORNEJO MD Service: Anesthesiology Author Type: Anesthesiologist Type: Anesthesia Preprocedure Evaluation Filed: 08/04/2024 07:12 Note Text: ANESTHESIOLOGY DAY OF SURGERY NOTE : 1960 Procedure Information Date/Time: 08/04/24 0730 Scheduled providers: Kaley Francois MD; Mathew Cornejo I, MD; Luisa Beard APRN.TUBE REBUILDER Procedure: COLONOSCOPY SCREENING Location: [facility] Endoscopy - ENDO Estimated body mass index is 37.33 kg/m? as calculated from the following: Height as of 07/14/24: 162.6 cm (5' 4.02 ). Weight as of 07/14/24: 98.7 kg (217 lb 9.5 oz). Most recent hematocrit and potassium results: Hematocrit 36.0 07/14/2024 Hematocrit (POCT) 34 12/28/2023 Potassium 4.7 07/14/2024 Potassium (POCT) 4.3 12/28/2023 Relevant Problems ANESTHESIA (+) PONV (postoperative nausea and vomiting) CARDIO (+) HTN (hypertension) ENDO (+) Hypothyroidism I - PHYSICAL EVALUATION AIRWAY Patient intubated: No. Tracheostomy tube not present Mallampati: III. TM distance: >3 FB. Neck ROM: full ROM without neurological symptoms. Mouth opening: adequate. Short neck: no. Thick neck: yes DENTAL Dental findings: teeth intact. II - ANESTHESIA PLAN ASA Score: 3 Anesthetic Plan: MAC NPO Status: adequate Beta Konstantin Monitoring Plan Monitoring plan: standard ASA. Post Procedure Analgesic Plan Informed Consent Anesthetic risks, benefits, alternatives, personnel and consent discussed: yes. Patient / Responsible Alliance Party agrees to proceed: yes Patient / Surrogate agrees to blood products: blood products not planned DNR status not reviewed with patient and/or family prior to surgery. Significant changes in the patient condition since the History and Physical, not otherwise documented in primary service progress note: no. No vitals data found for the desired time range. Outpatient Medications as of 08/04/2024 Medication Sig - iv contrast (will be provided with [...] in the CT contrast administration guidelines link. - enteric contrast (will be provided with radiology test) For CT CHESTABD/PEL W IVCON Routine order Administer, As Directed One Time Only, via Oral, Rectal, both Oral and Rectal, Enteric Tube, Stoma or Indwelling Catheter, Enteric Contrast as designated per enteric contrast guidelines - ibuprofen (MOTRIN) 200 mg tablet Take 2 tablets by mouth every 6 hours. - iron glycinate,polysacch cmplx (IRON BIS GLYCIN-FE P-SAC CMPLX ORAL) Take 20 mg by mouth once daily. - collagen, hydrolysate, bovine, (COLLAGEN, HYDR, BOVINE,, BULK,) 100 % powd Take 1 Dose by mouth once daily. - ondansetron (ZOFRAN) 8 mg tablet Take 1 tablet by mouth every 8 hours as needed for nausea/vomiting. (Patient not taking: Reported on 06/19/2024) - prochlorperazine (COMPAZINE) 10 mg tablet Take 1 tablet by mouth every 6 hours as needed. (Patient not taking: Reported on 06/19/2024) - levothyroxine (SYNTHROID) 50 mcg tablet Take 50 mcg by mouth once daily. - Pramoxine-Hydrocortisone (ANALPRAM-HC) 1-1 % rectal cream 1 g by RECTAL route two times a day as needed (rectal discomfort). - omega 7-ocf-isp-fish oil 120-180-500 mg cap Take 500 mg by mouth once daily. No current facility-administered medications on file as of 08/04/2024. I have interviewed and examined the patient. I have reviewed the medical record and/or the pre-anesthesia evaluation, pertinent labs, and test results. This contains updated information obtained within 48 hours of Surgery/Procedure. SIGNATURE: Mathew Cornejo MD PATIENT NAME: Nancy Sue DATE: August 04, 2024 TIME: 7:11 AM CSN: [id number] Normal [facility] Colonoscopyon 08-04-2024 Colonoscopy [facility] Gastrointestinal Endoscopy Patient Name: Nancy Sue Procedure Date: 08/04/2024 7:06 AM Date of : 1960 Admit Type: Outpatient Age: 64 Room: [place] [address] Gender: Female Note Status: Finalized Attending MD: Kaley Francois MD, [id number] Procedure: Colonoscopy Indications: High risk colon cancer surveillance: Personal history of colon cancer Providers: Kaley Francois MD, Marielena Platt RN, Desiree Christina, MONET Patient Profile: This is a 64 year [...] present medications. Procedure Code(s): --- Professional --- 73980, Colonoscopy, flexible; with biopsy, single or multiple Diagnosis Code(s): --- Professional --- Z12.11, Encounter for screening for malignant neoplasm of colon Z85.038, Personal history of other malignant neoplasm of large intestine D12.8, Benign neoplasm of rectum D49.0, Neoplasm of unspecified behavior of digestive system Z98.0, Intestinal bypass and anastomosis status CPT copyright 2020 [employer] [place]. All rights reserved. The codes documented in this report are preliminary and upon powder room attendant review may be revised to meet current compliance requirements. Attending Participation: I personally performed the entire procedure without the assistance of a fellow, resident or surgical services manager. Scope In: 7:3 (more content not included)... Normal [facility] Colonoscopy Study observatio non 08-04-2024 [facility] Gastrointestinal Endoscopy Patient Name: Nancy Sue Procedure Date: 08/04/2024 7:06 AM Date of : 1960 Admit Type: Outpatient Age: 64 Room: [place] [address] Gender: Female Note Status: Finalized Attending MD: Kaley Francois MD, [id number] Procedure: Colonoscopy Indications: High risk colon cancer [...] Patient has a contact number available for emerge (more content not included)... PROVATION [facility] Radiology Study observation (narrative) [facility] HISTORY PHYSICALon HISTORY PHYSICAL HNO ID: [id number] Author: ALPA HART MD Service: Colorectal Author Type: Resident Type: H&P Filed: 08/04/2024 07:29 Note Text: -- Attestation signed by Kaley Francois MD at 08/04/2024 7:56 AM I evaluated the patient and personally participated in the freed components. I agree with the resident's findings and plan as documented and have discussed the case and management of the patient's care with the resident. Signature: Kaley Francois MD Service Date: 08/04/2024 -- UPDATED HISTORY AND PHYSICAL EXAMINATION FOR SCOPE SERVICE DATE: 08/04/2024 SERVICE TIME: 7:28 AM The prior History and Physical (completed in the past 30 days) has been reviewed and the patient has been examined. The contents accurately reflect the patient's condition with the following additions or revisions since the HANDP was completed. HPI: This is a 64 year old female who presents for surveillance scope (sigmoid cancer s/p chemo f/b LAR on 12/2023). Last scope: 06/2023 Symptoms: No Family history: Yes, brother Antiplatelets/Anticoagulan t: No HISTORY: PAST MEDICAL HISTORY Diagnosis Date Anemia High cholesterol HTN (hypertension) Hypothyroidism PAST SURGICAL HISTORY Procedure Laterality Date ;TOTAL HYSTERECTMY TUBE(S) AND/OR OVARY BRONCHOSCOPY W/PLACEMENT TRACHEAL STENT COLECTOMY PARTIAL W/ANASTOMOSIS 12/28/2023 laparoscopic converted to open COLONOSCOPY SCREENING LIPOMA (MEDIUM) Prior to Admission medications as of 08/04/24 0724 Medication Sig Last Dose Taking ibuprofen (MOTRIN) 200 mg tablet Take 2 tablets by mouth every 6 hours. Yes iron glycinate,polysacch cmplx (IRON BIS GLYCIN-FE P-SAC CMPLX ORAL) Take 20 mg by mouth once daily. Past Week Yes levothyroxine (SYNTHROID) 50 mcg tablet Take 50 mcg by mouth once daily. 08/03/2024 Yes omega 7-lxp-wwu-fish oil 120-180-500 mg cap Take 500 mg by mouth once daily. Past Week Yes iv contrast (will be provided with [...] Contrast as designated per enteric contrast guidelines collagen, hydrolysate, bovine, (COLLAGEN, HYDR, BOVINE,, BULK,) 100 % powd Take 1 Dose by mouth once daily. ondansetron (ZOFRAN) 8 mg tablet Take 1 tablet by mouth every 8 hours as needed for nausea/vomiting. Patient not taking: Reported on 06/19/2024 prochlorperazine (COMPAZINE) 10 mg tablet Take 1 tablet by mouth every 6 hours as needed. Patient not taking: Reported on 06/19/2024 Pramoxine-Hydrocortisone (ANALPRAM-HC) 1-1 % rectal cream 1 g by RECTAL route two times a day as needed (rectal discomfort). Unknown ALLERGIES Allergen Reactions Offeghh-Syg-Tvf Red* Other: See Comments, Unknown, Myalgia myalgias PAST ANESTHESIA HISTORY: No history of adverse event ASA Class: Examination indicates no changes. AIRWAY: LUNGS: CTA with no wheezing CARDIAC: RRR with no murmurs Provisional Diagnosis/Treatment Plan: - Proceed with colonoscopy - Consent obtained -> Advised the patient of the risks of the procedure including, but no limited to: allergic reactions to medications, possibility or missing a significant lesion, bleeding (including delayed bleeding) and perforation (possibly necessitating surgical intervention). Alpa Hart MD [facility] NURSING PROGon 08-04-2024 NURSING PROG HNO ID: [id number] Author: LIN LUO RN Service: Nursing Author Type: Registered Nurse Type: Nursing Progress Note Filed: 08/04/2024 08:06 Note Text: PATIENT EDUCATION TOPIC: PROCEDURE / SURGERY: Pre Procedure Teaching: colonoscopy PATIENT NAME: Nancy Sue PATIENT LOCATION: Room/bed info not found READINESS TO LEARN COGNITIVE ABILITY: Alert and oriented MOTIVATION TO LEARN: Interested FAMILY SUPPORT: Unable to assess - Family not present INSTRUCTION PROVIDED TO: Patient PATIENT LEARNS BEST BY: Verbal Instruction FACTORS AFFECTING LEARNING: None PHYSICAL LIMITATIONS AFFECTING LEARNING: None LEARNING RESPONSE DIAGNOSIS: ADULT: colonoscopy PATIENT/FAMILY RESPONSE: Verbalizes understanding of: PRE-PROCEDURE INSTRUCTIONS-Correct action to take to follow pre-procedure instructions METHOD OF INSTRUCTION: Verbal instruction FOLLOW-UP PLAN: Patient instructed to call with any further issues Follow up phone call. INSTRUCTIONAL AIDS USED: NA SUPPLEMENTAL MATERIAL PROVIDED TO PATIENT: None REFERRAL (RECOMMENDATION): None Electronically Signed By: Lin Luo [facility] NURSING PROG HNO ID: [id number] Author: LIN LUO RN Service: Nursing Author Type: Registered Nurse Type: Nursing Progress Note Filed: 08/04/2024 07:20 Note Text: PATIENT EDUCATION TOPIC: PROCEDURE / SURGERY: Pre Procedure Teaching: colonoscopy PATIENT NAME: Nancy Sue PATIENT LOCATION: Room/bed info not found READINESS TO LEARN COGNITIVE ABILITY: Alert and oriented MOTIVATION TO LEARN: Interested FAMILY SUPPORT: Unable to assess - Family not present INSTRUCTION PROVIDED TO: Patient PATIENT LEARNS BEST BY: Verbal Instruction FACTORS AFFECTING LEARNING: None PHYSICAL LIMITATIONS AFFECTING LEARNING: None LEARNING RESPONSE DIAGNOSIS: ADULT: colonoscopy PATIENT/FAMILY RESPONSE: Verbalizes understanding of: PRE-PROCEDURE INSTRUCTIONS-Correct action to take to follow pre-procedure instructions METHOD OF INSTRUCTION: Verbal instruction FOLLOW-UP PLAN: TBD INSTRUCTIONAL AIDS USED: NA SUPPLEMENTAL MATERIAL PROVIDED TO PATIENT: None REFERRAL (RECOMMENDATION): None Electronically Signed By: Lin Luo [facility] SURGICAL PATHOLOGYon 024 CASE REPORT [facility] Comment on above: Order Comment: Speci men Type: BLOOD SPECIMEN [facility] Address: [address] [place] [address] Result Comment: Surg ical Pathology Report Case: [id number] Authorizing Provider: Kaley Francois MD Collected: 08/04/2024 07:52 AM Ordering Location: [facility] Received: 08/04/2024 09:33 AM Endoscopy - ENDO Pathologist: Rosalina Galo MD Specimens: A) - Rectum, Polyp B) - Rectum, Biopsy, rectal lesion Performed By: #### 2 4321-2, , 2776-09 #### [facility] CLIA [id number] [address] [place] [address] DIAGNOSIS COMMENT A, B. Multiple addit ional H AND E levels were examined. No epithelial dysplasia is identified. [facility] Comment on above: Order Comment: Speci men Type: BLOOD SPECIMEN [facility] Address: [address] [place] [address] Performed By: #### 2 4321-2, , 2776-09 #### [facility] CLIA [id number] [address] [place] [address] [place] FINAL DIAGNOSIS [facility] Comment on above: Order Comment: Speci men Type: BLOOD SPECIMEN [facility] Address: [address] [place] [address] Result Comment: A. R ectum, polyp, biopsy: - Rectal mucosa with a small reactive lymphoid aggregate, see comment. B. Rectum, lesion, biopsy: - Rectal mucosa with mild hyperplastic epithelial changes and mild architectural distortion, see comment. Performed By: #### 2 4321-2, , 2776-09 #### [facility] CLIA [id number] [address] [place] [address] FINAL PERFORMING LAB Normal [facility] Comment on above: Order Comment: Speci men Type: BLOOD SPECIMEN [facility] Address: [address] [place] [address] Result Comment: Diag nostic interpretation performed at [facility], [address] [place] [address] CLIA# [id number] Unhairing Machine Operator: Rivas Bourne M.D. Performed By: #### 2 4321-2, , 2776-09 #### [facility] CLIA [id number] [address] [place] [address] GROSS DESCRIPTION Normal [facility] Comment on above: Order Comment: Speci men Type: BLOOD SPECIMEN [facility] Address: [address] [place] [address] Result Comment: A. R ectum, Polyp Received in formalin is one piece of chavez, soft tissue measuring 0.4 x 0.2 x 0.1 cm. Totally submitted in one cassette. B. Rectum, Biopsy Received in formalin is one piece of chavez, soft tissue measuring 0.3 x 0.2 x 0.1 cm. Totally submitted in one cassette. Gross examination performed at [facility], [address] [place] [address] August 04, 2024 11:39 AM Performed By: #### 2 4321-2, , 2776-09 #### [facility] CLIA [id number] [address] [place] [address] [place] CBC W Auto Differential pane l (Bld)on 07-14-2024 Basophils (Bld) [#/Vol] [facility] Basophils/100 WBC (Bld) 0.4 % [facility] Differential cell count method Nom (Bld) Auto [facility] Eosinophils (Bld) [#/Vol] 0.11 10*3/uL [facility] Eosinophils/100 WBC (Bld) 2.1 % [facility] Erythrocyte distribution width (RBC) [Ratio] 14.4 % 11.5 - 15.0 % [facility] Hematocrit (Bld) [Volume fraction] 36.0 % 36.0 - 46.0 % [facility] [facility] Hemoglobin (Bld) [Mass/Vol] 12.0 g/dL 11.5 - 15.5 g/dL [facility] Immature granulocytes (Bld) [#/Vol] [facility] Immature granulocytes/100 WBC (Bld) 0.2 % [facility] Interpretation and review of laboratory results Abnormal [facility] Lymphocytes (Bld) [#/Vol] 1.91 10*3/uL [facility] Lymphocytes/100 WBC (Bld) 37.2 % [facility] MCH (RBC) [Entitic mass] 29.3 pg 26.0 - 34.0 pg [facility] MCHC (RBC) [Mass/Vol] 33.3 g/dL 30.5 - 36.0 g/dL [facility] MCV (RBC) [Entitic vol] 87.8 fL 80.0 - 100.0 fL [facility] Monocytes (Bld) [#/Vol] 0.29 10*3/uL [facility] Monocytes/100 WBC (Bld) 5.6 % [facility] Neutrophils (Bld) [#/Vol] 2.80 10*3/uL [facility] Neutrophils/100 WBC (Bld) 54.5 % [facility] Nucleated RBC (Bld) [#/Vol] [facility] Nucleated RBC/100 WBC (Bld) [Ratio] 0.0 % /100 WBC [facility] Platelet mean volume (Bld) [Entitic vol] 10.9 fL 9.0 - 12.7 fL [facility] Platelets (Bld) [#/Vol] 134 10*3/uL Low [facility] Comment on above: No clot detected.Res ults checked and verified. RBC (Bld) [#/Vol] 4.10 10*6/uL 3.90 - 5.20 m/uL [facility] WBC (Bld) [#/Vol] 5.14 10*3/uL [facility] Basophils (Bld) [#/Vol] 10*3/uL Normal <0.11 [facility] Comment on above: Order Comment: Speci men Type: BLOOD SPECIMENOrdering Facility: [facility] Address: [address] [place] [address] Performed By: #### 5 7021-8 ####[facility] LABCLIA [id number] [place] [address] Basophils/100 WBC (Bld) 0.4 % Normal [facility] Comment on above: Order Comment: Speci men Type: BLOOD SPECIMENOrdering Facility: [facility] Address: [address] [place] [address] Performed By: #### 5 7021-8 ####[facility] LABCLIA [id number] [place] [address] Differential cell count method Nom (Bld) Auto Normal [facility] Comment on above: Order Comment: Speci men Type: BLOOD SPECIMENOrdering Facility: [facility] Address: [address] [place] [address] Performed By: #### 5 7021-8 ####[facility] LABCLIA [id number] [place] [address] Eosinophils (Bld) [#/Vol] 0.11 10*3/uL Normal <0.46 [facility] Comment on above: Order Comment: Speci men Type: BLOOD SPECIMENOrdering Facility: [facility] Address: [address] [place] [address] Performed By: #### 5 7021-8 ####[facility] LABCLIA [id number] [place] [address] Eosinophils/100 WBC (Bld) 2.1 % Normal [facility] Comment on above: Order Comment: Speci men Type: BLOOD SPECIMENOrdering Facility: [facility] Address: [address] [place] [address] Performed By: #### 5 7021-8 ####[facility] LABCLIA [id number] [place] [address] Erythrocyte distribution width (RBC) [Ratio] 14.4 % Normal 11.5-15.0 [facility] Comment on above: Order Comment: Speci men Type: BLOOD SPECIMENOrdering Facility: [facility] Address: [address] [place] [address] Performed By: #### 5 7021-8 ####[facility] LABCLIA [id number] [place] [address] Hematocrit (Bld) [Volume fraction] 36.0 % Normal 36.0-46.0 [facility] Comment on above: Order Comment: Speci men Type: BLOOD SPECIMENOrdering Facility: [facility] Address: [address] [place] [address] Performed By: #### 5 7021-8 ####[facility] LABIA [id number] [place] [address] Hemoglobin (Bld) [Mass/Vol] 12.0 g/dL Normal 11.5-15.5 [facility] Comment on above: Order Comment: Speci men Type: BLOOD SPECIMENOrdering Facility: [facility] Address: [address] [place] [address] Performed By: #### 5 7021-8 ####[facility] LABCLIA [id number] [place] [address] Immature granulocytes (Bld) [#/Vol] 10*3/uL Normal <0.10 [facility] Comment on above: Order Comment: Speci men Type: BLOOD SPECIMENOrdering Facility: [facility] Address: [address] [place] [address] Performed By: #### 5 7021-8 ####[facility] LABCLIA [id number] [place] [address] Immature granulocytes/100 WBC (Bld) 0.2 % Normal [facility] Comment on above: Order Comment: Speci men Type: BLOOD SPECIMENOrdering Facility: [facility] Address: [address] [place] [address] Performed By: #### 5 7021-8 ####[facility] LABCLIA [id number] [place] [address] Lymphocytes (Bld) [#/Vol] 1.91 10*3/uL Normal 1.00-4.00 [facility] Comment on above: Order Comment: Speci men Type: BLOOD SPECIMENOrdering Facility: [facility] Address: [address] [place] [address] Performed By: #### 5 7021-8 ####[facility] LABCLIA [id number] [place] [address] Lymphocytes/100 WBC (Bld) 37.2 % Normal [facility] Comment on above: Order Comment: Speci men Type: BLOOD SPECIMENOrdering Facility: [facility] Address: [address] [place] [address] Performed By: #### 5 7021-8 ####[facility] LABCLIA [id number] [place] [address] MCH (RBC) [Entitic mass] 29.3 pg Normal 26.0-34.0 [facility] Comment on above: Order Comment: Speci men Type: BLOOD SPECIMENOrdering Facility: [facility] Address: [address] [place] [address] Performed By: #### 5 7021-8 ####[facility] LABIA [id number] [place] [address] MCHC (RBC) [Mass/Vol] 33.3 g/dL Normal 30.5-36.0 [facility] Comment on above: Order Comment: Speci men Type: BLOOD SPECIMENOrdering Facility: [facility] Address: [address] [place] [address] Performed By: #### 5 7021-8 ####[facility] LABIA [id number] [place] [address] MCV (RBC) [Entitic vol] 87.8 fL Normal 80.0-100.0 [facility] Comment on above: Order Comment: Speci men Type: BLOOD SPECIMENOrdering Facility: [facility] Address: [address] [place] [address] Performed By: #### 5 7021-8 ####[facility] LABCLIA [id number] [place] [address] Monocytes (Bld) [#/Vol] 0.29 10*3/uL Normal <0.87 [facility] Comment on above: Order Comment: Speci men Type: BLOOD SPECIMENOrdering Facility: [facility] Address: [address] [place] [address] Performed By: #### 5 7021-8 ####[facility] LABIA [id number] [place] [address] Monocytes/100 WBC (Bld) 5.6 % Normal [facility] Comment on above: Order Comment: Speci men Type: BLOOD SPECIMENOrdering Facility: [facility] Address: [address] [place] [address] Performed By: #### 5 7021-8 ####[facility] LABCLIA [id number] [place] [address] Neutrophils (Bld) [#/Vol] 2.80 10*3/uL Normal 1.45-7.50 [facility] Comment on above: Order Comment: Speci men Type: BLOOD SPECIMENOrdering Facility: [facility] Address: [address] [place] [address] Performed By: #### 5 7021-8 ####[facility] LABCLIA [id number] [place] [address] Neutrophils/100 WBC (Bld) 54.5 % Normal [facility] Comment on above: Order Comment: Speci men Type: BLOOD SPECIMENOrdering Facility: [facility] Address: [address] [place] [address] Performed By: #### 5 7021-8 ####[facility] LABCLIA [id number] [place] [address] Nucleated RBC (Bld) [#/Vol] 10*3/uL Normal <0.01 [facility] Comment on above: Order Comment: Speci men Type: BLOOD SPECIMENOrdering Facility: [facility] Address: [address] [place] [address] Performed By: #### 5 7021-8 ####[facility] LABCLIA [id number] [place] [address] Nucleated RBC/100 WBC (Bld) [Ratio] 0.0 /100 WBC Normal [facility] Comment on above: Order Comment: Speci men Type: BLOOD SPECIMENOrdering Facility: [facility] Address: [address] [place] [address] Performed By: #### 5 7021-8 ####[facility] LABCLIA [id number] [place] [address] Platelet mean volume (Bld) [Entitic vol] 10.9 fL Normal 9.0-12.7 [facility] Comment on above: Order Comment: Speci men Type: BLOOD SPECIMENOrdering Facility: [facility] Address: [address] [place] [address] Performed By: #### 5 7021-8 ####[facility] LABCLIA [id number] [place] [address] Platelets (Bld) [#/Vol] 134 10*3/uL Low 150-400 [facility] Comment on above: Order Comment: Speci men Type: BLOOD SPECIMENOrdering Facility: [facility] Address: [address] [place] [address] Result Comment: No c lot detected.Results checked and verified. Performed By: #### 5 7021-8 ####[facility] LABCLIA [id number] [place] [address] RBC (Bld) [#/Vol] 4.10 10*6/uL Normal 3.90-5.20 [facility] Comment on above: Order Comment: Speci men Type: BLOOD SPECIMENOrdering Facility: [facility] Address: [address] [place], [place] [address] Performed By: #### 5 7021-8 ####[facility] LABIA [id number] [place] [address] WBC (Bld) [#/Vol] 5.14 10*3/uL Normal 3.70-11.00 [facility] Comment on above: Order Comment: Speci men Type: BLOOD SPECIMENOrdering Facility: [facility] Address: [address] [place], [place] [address] Performed By: #### 5 7021-8 ####[facility] LABIA [id number] [place] [address] CNOVSPon 07-14-2024 CNOVS Visit (SP) Office ([facility]) -- NANCY SUE ([id number]) 1960 F Date Time Provider Department 07/14/24 10:40 AM JOSE WING During your visit today, we recorded the following information about you: Temperature Pulse Respiration Blood pressure 97.7 degrees 61/minute 16/minute 152/74 Weight Height 98.7 kg 1.626 m Jose Wing MD 07/15/2024 6:36 AM Signed NAME: Nancy Sue CLINIC NO.: [id number] DATE OF SERVICE: July 14, 2024 (Dianne) Some elements in this clinic note that are critical to medical decision making have been carefully reviewed and included from a prior clinic note dated: January 11, 2024 (Dianne) Referring Provider: Kaley Francois Additional Clinicians involved in Nancy Sue's care: Dr. Justin Buckner, Dr. 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 Final path at resection was Stage I - no treatment response noted on pathology evaluation. Started FOLFOX on 08/29/2023. Cancer Staging Cancer of sigmoid (HCC) Staging form: Colon and Rectum, AJCC 8th Edition - Clinical stage from 06/29/2023: Stage IVB (cTX, cNX, cM1b) - Signed by Jose Wing MD on 07/20/2023 - Pathologic stage from 01/03/2024: Stage I (ypT2, pN0, cM0) - Signed by Jose Wing MD on 01/13/2024 LN's identified are borderline - may be Overstaged. Pulmonary GPS Biopsy of Right lung lesion - Carcinoid. PLAN: Add CEA to today's labs Triage to call with results of iron studies CT CAP with labs (with port) in 3 months RTC in 1 week after to review _- HPI: CASE HISTORY: Reverse Chronological Order 02/22/2024-02/24/2024 - Admitted for ileostomy closure 01/17/2024-01/19/2024 - Admitted at [facility] for skin irritation at stoma site 12/28/2023 - Laparoscopic converted to open low anterior resection, Splenic flexure mobilization, Diverting loop ileostomy, Flexible Sigmoidoscopy A. Hepatic artery lymph node, excision: - One lymph node, negative for malignancy (0/1). B. Sigmoid colon and proximal rectum, resection: - Residual invasive adenocarcinoma (see synoptic report). - One additional tubular adenoma. - Diverticular disease with associated focal active inflammation. - Sixteen lymph nodes, negative for malignancy (0/16). C. Distal donut, excision: - Segment of rectum with no diagnostic abnormality. 11/07/2023 - CT CAP: Chest: Streaky scarring/discoid atelectasis in the left upper lobe, increased since 08/13/23. Several subcentimeter nodular opacities measuring up to 8 mm, stable since 06/22/23. Findings compatible with previous granulomatous disease. A/P: Mild splenomegaly, increased in size since 06/22/23. Ksqk-oy-kfccurfm abdominal lymphadenopathy, stable. Increased streaky reticulation of the pelvic fat may represent post therapy changes or edema. Previously noted thickening of the rectosigmoid colon wall is less conspicuous. Sigmoid colon diverticulosis without evidence of diverticulitis. Nonobstructing left renal stones. 08/29/2023-11/21/2023 - 5 cycles FOLFOX 08/22/2023 - TB-FNA Right lower Lobe: - Neoplastic cells present derived from low-grade neuroendocrine tumor 07/13/2023 - CT PET: Intense uptake along more than 7 cm of the sigmoid colon consistent with known primary, associated with mildly prominent with ddoq-hr-wntfvuzn FDG uptake in upper mesenteric and retroperitoneal [...] periaortic retroperitoneal lymph node measures 1.5 x 1. (more content not included)... Normal [facility] CNPNon 07-14-2024 CNPN Telephone ([facility]) -- NANCY SUE ([id number]) 1960 F Date Time Provider Department 07/14/24 OJSE WING During your visit today, we recorded the following information about you: Melton Montse Felix 07/14/2024 10:43 AM Signed Ai Palomino RN 07/15/2024 8:25 AM Signed Jose Wing MD P Rust Triage Pool Iron sat was just a little bit low - bt overall anemia is improving so no need for iron. CEA did not get added - we will check next time. Pt notified and agreeable to plan of care. Pt denies any questions, needs or concerns at this time. Ai Palomino RN Allergies As of Date: 07/14/2024 Noted Allergy Reaction VXYOUOI-QUZ-OJL REDUCTASE INHIBIT*06/18/2022 14 - Other: See Comments 16 - Unknown 17 - Myalgia Comments: myalgias Date Reviewed: 07/14/2024 Reviewed by: Micheline Velez MA - Fully Assessed Reason for Visit: Results [95] Prescriptions as of 07/15/2024 - iv contrast (will be provided with [...] in the CT contrast administration guidelines link. - enteric contrast (will be provided with radiology test) For CT CHESTABD/PEL W IVCON Routine order Administer, As Directed One Time Only, via Oral, Rectal, both Oral and Rectal, Enteric Tube, Stoma or Indwelling Catheter, Enteric Contrast as designated per enteric contrast guidelines - ibuprofen (MOTRIN) 200 mg tablet Take 2 tablets by mouth every 6 hours. - iron glycinate,polysacch cmplx (IRON BIS GLYCIN-FE P-SAC CMPLX ORAL) Take 20 mg by mouth once daily. - collagen, hydrolysate, bovine, (COLLAGEN, HYDR, BOVINE,, BULK,) 100 % powd Take 1 Dose by mouth once daily. - ondansetron (ZOFRAN) 8 mg tablet Take 1 tablet by mouth every 8 hours as needed for nausea/vomiting. - prochlorperazine (COMPAZINE) 10 mg tablet Take 1 tablet by mouth every 6 hours as needed. - levothyroxine (SYNTHROID) 50 mcg tablet Take 50 mcg by mouth once daily. - Pramoxine-Hydrocortisone (ANALPRAM-HC) 1-1 % rectal cream 1 g by RECTAL route two times a day as needed (rectal discomfort). - omega 7-xau-byx-fish oil 120-180-500 mg cap Take 500 mg by mouth once daily. Problem List As Of Date 07/14/2024 Noted Resolved Rectal cancer (HCC) [C20] 06/08/2023 Cancer of sigmoid (HCC) [C18.7] 07/03/2023 HLD (hyperlipidemia) [E78.5] 08/10/2023 HTN (hypertension) [I10] 08/10/2023 Morbid obesity (HCC) [E66.01] 08/10/2023 Hypothyroidism [E03.9] 08/10/2023 PONV (postoperative nausea and vomiting) [R11.2*08/13/2023 Iron deficiency anemia [D50.9] 09/12/2023 Colon cancer (HCC) [C18.9] 12/28/2023 Encounter for ostomy care education [Z71.89] 12/29/2023 01/04/2024 Ileostomy bag changed (HCC) [Z43.2] 12/29/2023 01/04/2024 Ileostomy present (HCC) [Z93.2] 12/29/2023 Postoperative pain [G89.18] 01/03/2024 Skin breakdown [R23.8] 01/17/2024 Irritant contact dermatitis associated with fec*01/19/[address] (HCC) [Z93.2] 02/22/2024 Encounter Status:Closed by AI PALOMINO on 07/15/24 Normal [facility] Comprehensive metabolic 2000 panelOrdered By: Sara Jni on 07-14-2024 Albumin [Mass/Vol] 4.0 g/dL 3.9 - 4.9 g/dL [facility] ALP [Catalytic activity/Vol] 66 U/L 34 - 123 U/L [facility] ALT [Catalytic activity/Vol] 21 U/L 7 - 38 U/L [facility] Anion gap [Moles/Vol] 10 mmol/L 8 - 15 mmol/L [facility] AST [Catalytic activity/Vol] 25 U/L 13 - 35 U/L [facility] Bilirubin [Mass/Vol] 0.2 mg/dL 0.2 - 1 .3 mg/dL [facility] Calcium [Mass/Vol] 9.2 mg/dL 8.5 - 10. 2 mg/dL [facility] Chloride [Moles/Vol] 106 mmol/L 98 - 10 7 mmol/L [facility] CO2 [Moles/Vol] 25 mmol/L 22 - 30 mmol/L [facility] Creatinine [Mass/Vol] 1.00 mg/dL High 0.58 - 0.96 mg/dL [facility] GFR/1.73 sq M.predicted among non-blacks MDRD (S/P/Bld) [Vol rate/Area] 63 mL/min/{1.73_m2} - PINF [facility] Comment on above: Estimated Glomerular Filtration Rate (eGFR) is calculated using the 2020 CKD-EPI creatinine equation. This equation utilizes serum creatinine, sex, and age as parameters. The creatinine assay has traceable calibration to isotope dilution-mass spectrometry. Refer to KDIGO guidelines for clinical interpretation. In patients with unstable renal function, e.g. those with acute kidney injury, the eGFR may not accurately reflect actual GFR. Glucose [Mass/Vol] 106 mg/dL High 74 - 99 mg/dL [facility] Comment on above: The [place] [employer] (ADA) provides guidance for cutoff values [...] Standards of Medical Care in Diabetes 2016, [place] [employer]. Diabetes Care. 2016.39(Suppl 1). Interpretation and review of laboratory results Abnormal [facility] Potassium [Moles/Vol] 4.7 mmol/L 3.7 - 5.1 mmol/L [facility] Protein [Mass/Vol] 6.6 g/dL 6.3 - 8.0 g/dL [facility] Sodium [Moles/Vol] 141 mmol/L 136 - 144 mmol/L [facility] Urea nitrogen [Mass/Vol] 16 mg/dL 7 - 21 mg/dL [facility] Comprehensive metabolic 2000 panelon 07-14-2024 Albumin [Mass/Vol] 4.0 g/dL Normal 3.9-4.9 [facility] Comment on above: Order Comment: Speci men Type: BLOOD SPECIMENOrdering Facility: [facility] Address: [address] [place] [address] Performed By: #### 2 4323-8 ####[facility] LABCLIA [id number] [place] [address] ALP [Catalytic activity/Vol] 66 U/L Normal 34-123 [facility] Comment on above: Order Comment: Speci men Type: BLOOD SPECIMENOrdering Facility: [facility] Address: [address] [place] [address] Performed By: #### 2 4323-8 ####[facility] LABCLIA [id number] [place] [address] ALT [Catalytic activity/Vol] 21 U/L Normal 7-38 [facility] Comment on above: Order Comment: Speci men Type: BLOOD SPECIMENOrdering Facility: [facility] Address: [address] [place] [address] Performed By: #### 2 4323-8 ####[facility] LABCLIA [id number] [place] [address] Anion gap [Moles/Vol] 10 mmol/L Normal 8-15 [facility] Comment on above: Order Comment: Speci men Type: BLOOD SPECIMENOrdering Facility: [facility] Address: [address] [place] [address] Performed By: #### 2 4323-8 ####[facility] LABCLIA [id number] [place] [address] AST [Catalytic activity/Vol] 25 U/L Normal 13-35 [facility] Comment on above: Order Comment: Speci men Type: BLOOD SPECIMENOrdering Facility: [facility] Address: [address] [place] [address] Performed By: #### 2 4323-8 ####[facility] LABCLIA [id number] [place] [address] Bilirubin [Mass/Vol] 0.2 mg/dL Normal 0.2-1.3 [facility] Comment on above: Order Comment: Speci men Type: BLOOD SPECIMENOrdering Facility: [facility] Address: [address] [place] [address] Performed By: #### 2 4323-8 ####[facility] LABCLIA [id number] [place] [address] Calcium [Mass/Vol] 9.2 mg/dL Normal 8.5-10.2 [facility] Comment on above: Order Comment: Speci men Type: BLOOD SPECIMENOrdering Facility: [facility] Address: [address] [place] [address] Performed By: #### 2 4323-8 ####[facility] LABCLIA [id number] [place] [address] Chloride [Moles/Vol] 106 mmol/L Normal 98-107 [facility] Comment on above: Order Comment: Speci men Type: BLOOD SPECIMENOrdering Facility: [facility] Address: [address] [place] [address] Performed By: #### 2 4323-8 ####[facility] LABCLIA [id number] [place] [address] CO2 [Moles/Vol] 25 mmol/L Normal 22-30 [facility] Comment on above: Order Comment: Speci men Type: BLOOD SPECIMENOrdering Facility: [facility] Address: [address] [place] [address] Performed By: #### 2 4323-8 ####[facility] LABCLIA [id number] [place] [address] Creatinine [Mass/Vol] 1.00 mg/dL High 0.58-0.96 [facility] Comment on above: Order Comment: Speci men Type: BLOOD SPECIMENOrdering Facility: [facility] Address: [address] [place] [address] Performed By: #### 2 4323-8 ####[facility] LABCLIA [id number] [place] [address] Creatinine and Glomerular filtration rate.predicted panel (S/P/Bld) 63 mL/min/1.73m??? Normal >=60 [facility] Comment on above: Order Comment: Speci men Type: BLOOD SPECIMENOrdering Facility: [facility] Address: [address] [place] [address] Result Comment: Kelsey mated Glomerular Filtration Rate [...] actual GFR. Performed By: #### 2 4323-8 ####[facility] LABCLIA [id number] [place] [address] Glucose [Mass/Vol] 106 mg/dL High 74-99 [facility] Comment on above: Order Comment: Speci men Type: BLOOD SPECIMENOrdering Facility: [facility] Address: [address] [place], [place] [address] Result Comment: The [place] [employer] (ADA) provides guidance for cutoff [...] Standards of Medical Care in Diabetes 2016, [place] [employer]. Diabetes Care. 2016.39(Suppl 1). Performed By: #### 2 4323-8 ####[facility] LABCLIA [id number] [place] [address] Potassium [Moles/Vol] 4.7 mmol/L Normal 3.7-5.1 [facility] Comment on above: Order Comment: Speci men Type: BLOOD SPECIMENOrdering Facility: [facility] Address: [address] [place] [address] Performed By: #### 2 4323-8 ####[facility] LABCLIA [id number] [place] [address] Protein [Mass/Vol] 6.6 g/dL Normal 6.3-8.0 [facility] Comment on above: Order Comment: Venkati men Type: BLOOD SPECIMENOrdering Facility: [facility] Address: [address] [place] [address] Performed By: #### 2 4323-8 ####[facility] LABCLIA [id number] [place] [address] Sodium [Moles/Vol] 141 mmol/L Normal 136-144 [facility] Comment on above: Order Comment: Speci men Type: BLOOD SPECIMENOrdering Facility: [facility] Address: [address] [place] [address] Performed By: #### 2 4323-8 ####[facility] LABCLIA [id number] [place] [address] Urea nitrogen [Mass/Vol] 16 mg/dL Normal 7-21 [facility] Comment on above: Order Comment: Speci men Type: BLOOD SPECIMENOrdering Facility: [facility] Address: [address] [place] [address] Performed By: #### 2 4323-8 ####[facility] LABCLIA [id number] [place] [address] FERRITINon 07-14-2024 Ferritin [Mass/Vol] 42.6 ng/mL 14.7 - 205.1 ng/mL [facility] FOLATE, SERUMon 07-14-2024 Folate [Mass/Vol] 11.0 ng/mL 4.7 - PINF ng/mL [facility] Ferritin SerPl-mCncon 2023 Ferritin [Mass/Vol] 42.6 ng/mL Normal 14.7-205.1 [facility] Comment on above: Order Comment: Speci men Type: BLOOD SPECIMENOrdering Facility: [facility] Address: [address] [place] [address] Performed By: #### 5 0190-8, 2132-9, 2284-8, 2276-4 ####[facility] LABCLIA [id number] [facility] [id number] [address] [place] Folate SerPl-mCncon 07-14-20 24 Folate [Mass/Vol] 11.0 ng/mL Normal >4.7 [facility] Comment on above: Order Comment: Speci men Type: BLOOD SPECIMENOrdering Facility: [facility] Address: [address] [place], [place] [address] Performed By: #### 5 0190-8, 9, 2284-04, 2275-12 ####[facility] LABCLIA [id number] [place] [id number] [place] Iron and Iron binding capaci ty panelon 07-14-2024 Interpretation and review of laboratory results Abnormal [facility] Iron [Mass/Vol] 41 ug/dL 41 - 186 ug/dL [facility] Iron binding capacity [Mass/Vol] 336 ug/dL 232 - 386 ug/dL [facility] Iron/TIBC [Molar ratio] 12.2 % Low 15.0 - 57.0 % [facility] Iron [Mass/Vol] 41 ug/dL Normal 41-186 [facility] Comment on above: Order Comment: Speci men Type: BLOOD SPECIMENOrdering Facility: [facility] Address: [address] [place] [address] Performed By: #### 5 0190-8, 2132-05, 2284-04, 2275-12 ####[facility] LABCLIA [id number] [place] [address] [place] Iron binding capacity [Mass/Vol] 336 ug/dL Normal 232-386 [facility] Comment on above: Order Comment: Speci men Type: BLOOD SPECIMENOrdering Facility: [facility] Address: [address] [place] [address] Performed By: #### 5 0190-8, 2132-05, 2284-04, 2275-12 ####[facility] LABCLIA [id number] [place] [id number] [place] Iron/TIBC [Molar ratio] 12.2 % Low 15.0-57.0 [facility] Comment on above: Order Comment: Speci men Type: BLOOD SPECIMENOrdering Facility: [facility] Address: [address] [place] [address] Performed By: #### 5 0190-8, 2132-9, 2284-8, 6-4 ####[facility] LABCLIA [id number] [address] No Panel Informationon 07-14 Interpretation and review of laboratory results Normal [facility] VITAMIN B12on 07-14-2024 Cobalamin (Vitamin B12) [Mass/Vol] 314 pg/mL 232 - 1245 pg/mL [facility] Vit B12 SerPl-mCncon 024 Cobalamin (Vitamin B12) [Mass/Vol] 314 pg/mL Normal 232-1245 [facility] Comment on above: Order Comment: Speci men Type: BLOOD SPECIMENOrdering Facility: [facility] Address: [address] [place] [address] [place] [address] Performed By: #### 5 0190-8, 2132-9, 2284-8, 2276-4 ####[facility] LABCLIA [id number] [address] CNPNon 06-23-2024 CNPN Telephone (HEMTSA) -- NANCY SUE ([id number]) 1960 F Date Time Provider Department 06/23/24 PENELOPE MORENO HEMTSA During your visit today, we recorded the following information about you: Penelope Moreno, MONET 06/23/2024 8:07 AM Signed Kaley Francois MD Abhyankar, Vivek, MD; Penelope Moreno, RN; P Rust Clerical Pool Great! Thanks! Previous Messages ----- Message ----- From: Jose Wing MD Sent: 06/21/2024 2:39 PM EDT To: Kaley Francois MD; Penelope Moreno, RN; * Hi AJ - hope you're well! Thanks for the update - I agree - will get her back in and at least get labs for her. Discuss CT's for following NET. Brenda Webb. ----- Message ----- From: Kaley Francois MD Sent: 06/19/2024 10:00 AM EDT To: MD Giuseppe Reyes, I saw Nancy today; doing great. Doing her surveillance 1 year c/scope soon. Not sure if you're planning on surveillance CTs on her, given that she was technically a stage I on final path. I advised her to reschedule her appt with you (she had cancelled the February). She will probably need CTs for her NET anyway right? Parul Webb Rebecca, MONET 06/23/2024 8:07 AM Signed Clerical: Please schedule labs AND f/u w/ Brenda. Thanks! MONET Hatch Kristen 06/23/2024 8:41 AM Signed Spoke with patient. Pt is scheduled for labs and to see Dr Montalvo on 07/14. Pt requested this date. Luisa Deng Allergies As of Date: 06/23/2024 Noted Allergy Reaction SAINADQ-FQQ-CHB REDUCTASE INHIBIT*06/18/2022 14 - Other: See Comments 16 - Unknown 17 - Myalgia Comments: myalgias Date Reviewed: 06/19/2024 Reviewed by: Chica Morgan OCCA - Fully Assessed Reason for Visit: Appointment [186] Prescriptions as of 06/23/2024 - gabapentin (NEURONTIN) 300 mg capsule Take 1 capsule by mouth every 8 hours for 10 doses. - loperamide (IMODIUM) 2 mg cap(s) Take 2 capsules by mouth three times a day before meals. - lactobacillus rhamnosus (CULTURELLE) 10 billion cell capsule Take 1 capsule by mouth once daily. - ibuprofen (MOTRIN) 200 mg tablet Take 2 tablets by mouth every 6 hours. - iv contrast (will be provided with [...] in the CT contrast administration guidelines link. - enteric contrast (will be provided with radiology test) For CT CHESTABD/PEL W IVCON Routine order Administer, As Directed One Time Only, via Oral, Rectal, both Oral and Rectal, Enteric Tube, Stoma or Indwelling Catheter, Enteric Contrast as designated per enteric contrast guidelines - Ascorbic Qrup-Wqoagihku-Kcz (EMERGEN-C) 1,000 mg pwep Take 1 Packet by mouth once daily. - iron glycinate,polysacch cmplx (IRON BIS GLYCIN-FE P-SAC CMPLX ORAL) Take 20 mg by mouth once daily. - collagen, hydrolysate, bovine, (COLLAGEN, HYDR, BOVINE,, BULK,) 100 % powd Take 1 Dose by mouth once daily. - ondansetron (ZOFRAN) 8 mg tablet Take 1 tablet by mouth every 8 hours as needed for nausea/vomiting. - prochlorperazine (COMPAZINE) 10 mg tablet Take 1 tablet by mouth every 6 hours as needed. - levothyroxine (SYNTHROID) 50 mcg tablet Take 50 mcg by mouth once daily. - Pramoxine-Hydrocortisone (ANALPRAM-HC) 1-1 % rectal cream 1 g by RECTAL route two times a day as needed (rectal discomfort). - omega 3-fbl-grc-fish oil 120-180-500 mg cap Take 500 mg by mouth once daily. Problem List As Of Date 06/23/2024 Noted Resolved Rectal cancer (HCC) [C20] 06/08/2023 Cancer of sigmoid (HCC) [C18.7] 07/03/2023 HLD (hyperlipidemia) [E78.5] 08/10/2023 HTN (hypertension) [I10] 08/10/2023 Morbid obesity (HCC) [E66.01] 08/10/2023 Hypothyroidism [E03.9] 08/10/2023 PONV (postoperative nausea and vomiting) [R11.2*08/13/2023 Iron deficiency anemia [D50.9] 09/12/2023 Colon cancer (HCC) [C18.9] 12/28/2023 Encounter for ostomy care education [Z71.89] 12/29/2023 01/04/2024 Ileostomy bag changed (HCC) [Z43.2] 12/29/2023 01/04/2024 Ileostomy present (HCC) [Z93.2] 12/29/2023 Postoperative pain [G89.18] 01/03/2024 Skin breakdown [R23.8] 01/17/2024 Irritant contact dermatitis associated with fec*01/19/[address] (HCC) [Z93.2] 02/22/2024 Encounter Status:Closed by PENELOPE MORENO on 06/23/24 [facility] CNOVon 06-19-2024 CNOV Office Visit ([facility] ) -- NANCY SUE ([id number]) 1960 F Date Time Provider Department 06/19/24 9:00 AM KALEY FRANCOIS [facility] During your visit today, we recorded the following information about you: Temperature Pulse Blood pressure 97 degrees 75/minute 151/75 Kaley Francois MD 06/19/2024 10:00 AM Signed [facility] June 19, 2024 Nancy Sue 64 year old Brief History Nancy Sue is a 64 year old woman with 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 Pt had RLL nodule on CT chest which was biopsied, and consistent with low grade NET. She completed 5 cycles without change in RP LNs and decision made to proceed with surgery after TB discussion. She is now s/p laparoscopic converted to open LAR/DLI on 12/28/23 and laparoscopic incisional biopsy of hepatic artery lymph node by Dr. Menezes, which was negative for metastatic cancer and likely reactive due to cirrhosis. Final path with ypT2N0 sigmoid cancer, s/p Ileostomy Closure on 02/22/2024. Oncology surveillance with Dr Alves- last seen 01/11/2024 Interval events Patient states that she is feeling well and has returned to her baseline with regards to her BM. She denies any abdominal pain. Her prior ostomy site is mildly itchy but does not bother her. She is tolerating a diet, and has returned to all of her ADLs. Abdominal surgery: hysterectomy followed by bilateral subbilateral salpingo-oophorectomy PAST MEDICAL HISTORY Diagnosis Date Anemia High cholesterol HTN (hypertension) Hypothyroidism PAST SURGICAL HISTORY Procedure Laterality Date ;TOTAL HYSTERECTMY TUBE(S) AND/OR OVARY BRONCHOSCOPY W/PLACEMENT TRACHEAL STENT COLECTOMY PARTIAL W/ANASTOMOSIS 12/28/2023 laparoscopic converted to open COLONOSCOPY SCREENING LIPOMA (MEDIUM) Current Outpatient Medications Medication Sig Dispense Refill ibuprofen (MOTRIN) 200 mg tablet Take 2 tablets by mouth every 6 hours. iron glycinate,polysacch cmplx (IRON BIS GLYCIN-FE P-SAC CMPLX ORAL) Take 20 mg by mouth once daily. collagen, hydrolysate, bovine, (COLLAGEN, HYDR, BOVINE,, BULK,) 100 % powd Take 1 Dose by mouth once daily. levothyroxine (SYNTHROID) 50 mcg tablet Take 50 mcg by mouth once daily. Pramoxine-Hydrocortisone (ANALPRAM-HC) 1-1 % rectal cream 1 g by RECTAL route two times a day as needed (rectal discomfort). omega 9-xbt-keu-fish oil 120-180-500 mg cap Take 500 mg by mouth once daily. gabapentin (NEURONTIN) 300 mg capsule Take 1 capsule by mouth every 8 hours for 10 doses. 10 capsule 0 loperamide (IMODIUM) 2 mg cap(s) Take 2 capsules by mouth three times a day before meals. 90 capsule 1 lactobacillus rhamnosus (CULTURELLE) 10 billion cell capsule Take 1 capsule by mouth once daily. 30 capsule 0 iv contrast (will be provided with radiology [...] contrast administration guidelines link. 1 Each 0 enteric contrast (will be provided with radiology test) For CT CHESTABD/PEL W IVCON Routine order Administer, As Directed One Time Only, via Oral, Rectal, both Oral and Rectal, Enteric Tube, Stoma or Indwelling Catheter, Enteric Contrast as designated per enteric contrast guidelines 1 Each 0 Ascorbic Ssec-Bmysmsozt-Jhm (EMERGEN-C) 1,000 mg pwep Take 1 Packet by mouth once daily. ondansetron (ZOFRAN) 8 mg tablet Take 1 tablet by mouth every 8 hours as needed for nausea/vomiting. (Patient not taking: Reported on 06/19/2024) 90 tablet 1 prochlorperazine (COMPAZINE) 10 mg tablet Take 1 tablet by mouth every 6 hours as needed. (Patient not taking: Reported on 06/19/2024) 100 tablet 1 No current facility-administered medications for this visit. ALLERGIES Allergen Reactions Eoeeyzo-Env-Zdc Red* Other: See Comments, Unknown, Myalgia myalgias FAMILY HISTORY Problem Relation Age of Onset Stroke Mother COPD Father Heart Father Colon Cancer Brother Social History Tobacco Use Smoking status: Never Smokeless tobacco: Never Vaping Use Vaping status: Never Used Substance Use Topics Alcohol use: Yes Comment: 2 drinks a couple times a month Drug use: Never Physical Exam: BP 151/75 (BP Site: Left Arm, BP Position: Sitting, BP Cuff Size: Regular Adult) Pulse 75 Temp 36.1 ?C (97 ?F) SpO2 98% General Appearance: Well appearing, alert, in no acute distress, well-hydrated, well nourished. Abdomen: soft, non tender, non distended. Prior ostomy site, with mildly excoriated scar but intact. Laparotomy (more content not included)... Normal [facility] Basic metabolic 2000 panelon 02-24-2024 Anion gap [Moles/Vol] 8 mmol/L Normal 8-15 [facility] Comment on above: Order Comment: Speci men Type: BLOOD SPECIMENOrdering Facility: [facility] Address: [address] [place] [address] Performed By: #### 2 4321-2 ####[facility]ORYCLIA [id number] [place] [address] [place] Calcium [Mass/Vol] 8.5 mg/dL Normal 8.5-10.2 [facility] Comment on above: Order Comment: Speci men Type: BLOOD SPECIMENOrdering Facility: [facility] Address: [address] [place] [address] Performed By: #### 2 4321-2 ####[facility]ORYCLIA [id number] [place] [id number] [place] Chloride [Moles/Vol] 103 mmol/L Normal 98-107 [facility] Comment on above: Order Comment: Speci men Type: BLOOD SPECIMENOrdering Facility: [facility] Address: [address] [place] [address] Performed By: #### 2 4321-2 ####[facility]ATORYCLIA [id number] [place] [address] [place] CO2 [Moles/Vol] 25 mmol/L Normal 22-30 [facility] Comment on above: Order Comment: Speci men Type: BLOOD SPECIMENOrdering Facility: [facility] Address: [address] [place] [address] Performed By: #### 2 4321-2 ####[facility]ORYCLIA [id number] [place] [id number] [place] Creatinine [Mass/Vol] 1.02 mg/dL High 0.58-0.96 [facility] Comment on above: Order Comment: Speci men Type: BLOOD SPECIMENOrdering Facility: [facility] Address: [address] [place] [address] Performed By: #### 2 4321-2 ####[facility]ORYCLIA [id number] [place] [id number] [place] Creatinine and Glomerular filtration rate.predicted panel (S/P/Bld) 61 mL/min/1.73m??? Normal >=60 [facility] Comment on above: Order Comment: Speci men Type: BLOOD SPECIMENOrdering Facility: [facility] Address: [address] [place] [address] Result Comment: Kelsey mated Glomerular Filtration Rate [...] reflect actual GFR. Performed By: #### 2 4321-2 ####[facility]ORYCLIA [id number] [place] [id number] [place] Glucose [Mass/Vol] 99 mg/dL Normal 74-99 [facility] Comment on above: Order Comment: Speci men Type: BLOOD SPECIMENOrdering Facility: [facility] Address: [address] [place] [address] Result Comment: The [place] [employer] (ADA) provides guidance for cutoff [...] Standards of Medical Care in Diabetes 2016, [place] [employer]. Diabetes Care. 2016.39(Suppl 1). Performed By: #### 2 4321-2 ####[facility]ATORYCLIA [id number] [place] [id number] [place] Potassium [Moles/Vol] 4.1 mmol/L Normal 3.7-5.1 [facility] Comment on above: Order Comment: Speci men Type: BLOOD SPECIMENOrdering Facility: [facility] Address: [address] [place] [address] Performed By: #### 2 4321-2 ####[facility]ATORYCLIA [id number] [place] [id number] [place] Sodium [Moles/Vol] 136 mmol/L Normal 136-144 [facility] Comment on above: Order Comment: Speci men Type: BLOOD SPECIMENOrdering Facility: [facility] Address: [address] [place] [address] Performed By: #### 2 4321-2 ####[facility]ORYCLIA [id number] [place] [id number] [place] Urea nitrogen [Mass/Vol] 17 mg/dL Normal 7-21 [facility] Comment on above: Order Comment: Speci men Type: BLOOD SPECIMENOrdering Facility: [facility] Address: [address] [place] [address] Performed By: #### 2 4321-2 ####[facility]ORYCLIA [id number] [place] [id number] [place] CBC W Auto Differential pane l (Bld)on 02-24-2024 Basophils (Bld) [#/Vol] 10*3/uL Normal <0.11 [facility] Comment on above: Order Comment: Speci men Type: BLOOD SPECIMEN [facility] Address: [address] [place] [address] Performed By: #### 2 4321-2, 2776-09, #### [facility] CLIA [id number] [address] [place] [address] [place] Basophils/100 WBC (Bld) 0.3 % Normal [facility] Comment on above: Order Comment: Speci men Type: BLOOD SPECIMEN [facility] Address: [address] [place] [address] Performed By: #### 2 4321-2, 2776-09, #### [facility] CLIA [id number] [place] [id number] [place] Differential cell count method Nom (Bld) Auto Normal [facility] Comment on above: Order Comment: Speci men Type: BLOOD SPECIMEN [facility] Address: [address] [place] [address] Performed By: #### 2 4321-2, 2776-09, #### [facility] CLIA [id number] [place] [id number] [place] Eosinophils (Bld) [#/Vol] 0.18 10*3/uL Normal <0.46 [facility] Comment on above: Order Comment: Speci men Type: BLOOD SPECIMEN [facility] Address: [address] [place] [address] Performed By: #### 2 4321-2, 2776-09, #### [facility] CLIA [id number] [address] [place] [address] [place] Eosinophils/100 WBC (Bld) 4.7 % Normal [facility] Comment on above: Order Comment: Speci men Type: BLOOD SPECIMEN [facility] Address: [address] [place] [address] Performed By: #### 2 4321-2, 2776-09, #### [facility] CLIA [id number] [address] [place] [address] [place] Erythrocyte distribution width (RBC) [Ratio] 12.8 % Normal 11.5-15.0 [facility] Comment on above: Order Comment: Speci men Type: BLOOD SPECIMEN [facility] Address: [address] [place] [address] Performed By: #### 2 4321-2, 2776-09, #### [facility] CLIA [id number] [address] [place] [address] [place] Hematocrit (Bld) [Volume fraction] 31.1 % Low 36.0-46.0 [facility] Comment on above: Order Comment: Speci men Type: BLOOD SPECIMEN [facility] Address: [address] [place] [address] Performed By: #### 2 4321-2, 2776-09, #### [facility] CLIA [id number] [address] [place] [address] [place] Hemoglobin (Bld) [Mass/Vol] 10.3 g/dL Low 11.5-15.5 [facility] Comment on above: Order Comment: Speci men Type: BLOOD SPECIMEN [facility] Address: [address] [place] [address] Performed By: #### 2 4321-2, 2776-09, #### [facility] CLIA [id number] [address] [place] [address] [place] Immature granulocytes (Bld) [#/Vol] 10*3/uL Normal <0.10 [facility] Comment on above: Order Comment: Speci men Type: BLOOD SPECIMEN [facility] Address: [address] [place] [address] Performed By: #### 2 4321-2, 2776-09, #### [facility] CLIA [id number] [address] [place] [address] [place] Immature granulocytes/100 WBC (Bld) 0.3 % Normal [facility] Comment on above: Order Comment: Speci men Type: BLOOD SPECIMEN [facility] Address: [address] [place] [address] Performed By: #### 2 4320-2, 2776-09, #### [facility] CLIA [id number] [address] [place] [address] [place] Lymphocytes (Bld) [#/Vol] 1.36 10*3/uL Normal 1.00-4.00 [facility] Comment on above: Order Comment: Speci men Type: BLOOD SPECIMEN [facility] Address: [address] [place] [address] Performed By: #### 2 4320-2, 2776-09, #### [facility] CLIA [id number] [address] [place] [address] [place] Lymphocytes/100 WBC (Bld) 35.3 % Normal [facility] Comment on above: Order Comment: Speci men Type: BLOOD SPECIMEN [facility] Address: [address] [place] [address] Performed By: #### 2 4321-2, 2776-09, #### [facility] CLIA [id number] [address] [place] [address] [place] MCH (RBC) [Entitic mass] 29.3 pg Normal 26.0-34.0 [facility] Comment on above: Order Comment: Speci men Type: BLOOD SPECIMEN [facility] Address: [address] [place] [address] Performed By: #### 2 4321-2, 2776-09, #### [facility] CLIA [id number] [address] [place] [address] [place] MCHC (RBC) [Mass/Vol] 33.1 g/dL Normal 30.5-36.0 [facility] Comment on above: Order Comment: Speci men Type: BLOOD SPECIMEN [facility] Address: [address] [place] [address] Performed By: #### 2 4321-2, 2776-09, #### [facility] CLIA [id number] [address] [place] [address] [place] MCV (RBC) [Entitic vol] 88.6 fL Normal 80.0-100.0 [facility] Comment on above: Order Comment: Speci men Type: BLOOD SPECIMEN [facility] Address: [address] [place] [address] Performed By: #### 2 4321-2, 2776-09, #### [facility] CLIA [id number] [address] [place] [address] [place] Monocytes (Bld) [#/Vol] 0.18 10*3/uL Normal <0.87 [facility] Comment on above: Order Comment: Speci men Type: BLOOD SPECIMEN [facility] Address: [address] [place] [address] Performed By: #### 2 4321-2, 2776-09, #### [facility] CLIA [id number] [address] [place] [address] [place] Monocytes/100 WBC (Bld) 4.7 % Normal [facility] Comment on above: Order Comment: Speci men Type: BLOOD SPECIMEN [facility] Address: [address] [place] [address] Performed By: #### 2 4321-2, 2776-09, #### [facility] CLIA [id number] [address] [place], [place] [id number] [place] Neutrophils (Bld) [#/Vol] 2.11 10*3/uL Normal 1.45-7.50 [facility] Comment on above: Order Comment: Speci men Type: BLOOD SPECIMEN [facility] Address: [address] [place] [address] Performed By: #### 2 4321-2, 2776-09, #### [facility] CLIA [id number] [address] [place], [place] [address] [place] Neutrophils/100 WBC (Bld) 54.7 % Normal [facility] Comment on above: Order Comment: Speci men Type: BLOOD SPECIMEN [facility] Address: [address] [place] [address] Performed By: #### 2 4321-2, 2776-09, #### [facility] CLIA [id number] [address] [place], [place] [id number] [place] Nucleated RBC (Bld) [#/Vol] 10*3/uL Normal <0.01 [facility] Comment on above: Order Comment: Speci men Type: BLOOD SPECIMEN [facility] Address: [address] [place] [address] Performed By: #### 2 4321-2, 2776-09, #### [facility] CLIA [id number] [address] [place], [place] [address] [place] Nucleated RBC/100 WBC (Bld) [Ratio] 0.0 /100 WBC Normal [facility] Comment on above: Order Comment: Speci men Type: BLOOD SPECIMEN [facility] Address: [address] [place] [address] Performed By: #### 2 4321-2, 2776-09, #### [facility] CLIA [id number] [address] [place], [place] [address] [place] Platelet mean volume (Bld) [Entitic vol] 11.1 fL Normal 9.0-12.7 [facility] Comment on above: Order Comment: Speci men Type: BLOOD SPECIMEN [facility] Address: [address] [place] [address] Performed By: #### 2 4321-2, 2777-1, #### [facility] CLIA [id number] [address] [place] [address] [place] Platelets (Bld) [#/Vol] 99 10*3/uL Low 150-400 [facility] Comment on above: Order Comment: Speci men Type: BLOOD SPECIMEN [facility] Address: [address] [place] [address] Result Comment: No c lot detected. Performed By: #### 2 4321-2, 27703-10, #### [facility] CLIA [id number] [address] [place] [address] [place] RBC (Bld) [#/Vol] 3.51 10*6/uL Low 3.90-5.20 [facility] Comment on above: Order Comment: Speci men Type: BLOOD SPECIMEN [facility] Address: [address] [place] [address] Performed By: #### 2 4321-2, 27703-10, #### [facility] CLIA [id number] [address] [place] [address] [place] WBC (Bld) [#/Vol] 3.85 10*3/uL Normal 3.70-11.00 [facility] [facility] Comment on above: Order Comment: Speci men Type: BLOOD SPECIMEN Ordering Facility[facility] Address: [address] [place] [address] Performed By: #### 2 4321-2, 2777-1, #### [facility] CLIA [id number] [address] [place], [place] [address] [place] CNDSon 02-24-2024 CNDS HNO ID: [id number] Author: MALORIE GONCALVES MD Service: Colorectal Author Type: Resident Type: Discharge Summary Filed: 02/24/2024 20:26 Note Text: -- Attestation signed by Kaley Francois MD at 02/25/2024 12:55 PM I agree with the resident's findings and plan as documented and have discussed the case and management of the patient's care with the resident. Signature: Kaley Francois MD -- DISCHARGE SUMMARY PATIENT NAME: Nancy Sue ADMISSION DATE: 02/22/2024 DISCHARGE DATE: 02/24/2024 Attending: Kaley Francois MD Reason for Hospitalization: Principal Problem: Ileostomy in place (HCC) (POA: Yes) Resolved Problems: * No resolved hospital problems. * Operations During Hospitalization: Ileostomy closure Procedures During Hospitalization: None Hospital Course: The patient was admitted to the hospital and transferred to the OR and a loop ileostomy closure was performed. Patient tolerated the procedure well and was transferred to the regular nursing floor. No complications were encountered. Daily labs were ordered and reviewed to follow up progress of patients medical condition. Lovenox was ordered for prophylaxis of deep vein thrombosis. Diet was gradually advanced. After toleration of a full diet and adequate pain control, patient was discharged in a stable condition. Labs and Procedures Pending at Discharge: No pending results. Patient Condition at Discharge: Stable Discharge Disposition: Home with Self Care Information Provided to Patient: Patient given copy of Discharge Instructions Discharge Medications: Medication List START taking these medications gabapentin 300 mg capsule Commonly known as: NEURONTIN Take 1 capsule by mouth every 8 hours for 10 doses. oxyCODONE IR 5 mg immediate release tablet Commonly known as: ROXICODONE Take 1 to 2 tablets by mouth every 6 hours as needed for up to 5 days. CHANGE how you take these medications * ibuprofen 200 mg tablet Commonly known as: MOTRIN Take 2 tablets by mouth every 6 hours. What changed: Another medication with the same name was added. Make sure you understand how and when to take each. * ibuprofen 400 mg tablet Commonly known as: MOTRIN Take 1 tablet by mouth every 8 hours for 7 days. Patient should start on February 25, 2024. Start taking on: February 25, 2024 What changed: You were already taking a medication with the same name, and this prescription was added. Make sure you understand how and when to take each. * This list has 2 medication(s) that are the same as other medications prescribed for you. Read the directions carefully, and ask your doctor or other care provider to review them with you. CONTINUE taking these medications acetaminophen 500 mg tablet Commonly known as: TYLENOL EXTRA STRENGTH Take 2 tablets by mouth every 6 hours as needed for pain for up to 7 days. collagen, hydr (bovine) (bulk) 100 % Powd EMERGEN-C 1,000 mg Pwep Generic drug: Ascorbic Mkob-Wgybsfcvz-Qtn enteric contrast (will be provided with radiology test) For CT CHESTABD/PEL W IVCON Routine order Administer, As Directed One Time Only, via Oral, Rectal, both Oral and Rectal, Enteric Tube, Stoma or Indwelling Catheter, Enteric Contrast as designated per enteric contrast guidelines IRON BIS GLYCIN-FE P-SAC CMPLX ORAL iv contrast (will be provided with radiology [...] in the CT contrast administration guidelines link. lactobacillus rhamnosus 10 billion cell capsule Commonly known as: CULTURELLE Take 1 capsule by mouth once daily. levothyroxine 50 mcg tablet Commonly known as: SYNTHROID loperamide 2 mg cap(s) Commonly known as: IMODIUM Take 2 capsules by mouth three times a day before meals. omega 7-ghg-wyt-fish oil 120-180-500 mg Cap ondansetron 8 mg tablet Commonly known as: ZOFRAN Take 1 tablet by mouth every 8 hours as needed for nausea/vomiting. Pramoxine-Hydrocortisone 1-1 % rectal cream Commonly known as: ANALPRAM-HC prochlorperazine 10 mg tablet Commonly known as: COMPAZINE Take 1 tablet by mouth every 6 hours as needed. Where to Get Your Medications These medications were sent to [facility] [address] [address] Hours: Sunday-Sunday: 7am-7pm, Sat: 9am-1pm acetaminophen 500 mg tablet gabapentin 300 mg capsule ibuprofen 400 mg tablet oxyCODONE IR (more content not included)... Normal [facility] NURSING PROGon 02-24-2024 NURSING PROG HNO ID: [id number] Author: SHREYA YANG RN Service: ? Author Type: Registered Nurse Type: Nursing Progress Note Filed: 02/24/2024 12:28 Note Text: Discharge instructions given to pt and . Verbalizes understanding and questions answered. IV removed. Pt left unit ambulatory in stable condition with belongings. Normal [facility] Basic metabolic 2000 panelon 02-23-2024 Anion gap [Moles/Vol] 9 mmol/L Normal 8-15 [facility] Comment on above: Order Comment: Spectrinidad nava Type: BLOOD SPECIMEN Ordering Facility[facility] Address: [address] [place] [address] Performed By: #### 2 4321-2, 2776-09, #### [facility] CLIA [id number] [place] [address] [place] Calcium [Mass/Vol] 9.1 mg/dL Normal 8.5-10.2 [facility] Comment on above: Order Comment: Fatou men Type: BLOOD SPECIMEN Ordering Facility: [facility] Address: [address] [place] [address] Performed By: #### 2 4321-2, 27703-10, #### [facility] CLIA [id number] [address] [place] [address] [place] Chloride [Moles/Vol] 105 mmol/L Normal 98-107 [facility] Comment on above: Order Comment: Speci men Type: BLOOD SPECIMEN Ordering Facility: [facility] Address: [address] [place] [address] Performed By: #### 2 4321-2, 2777-1, #### [facility] CLIA [id number] [place] [address] [place] CO2 [Moles/Vol] 23 mmol/L Normal 22-30 [facility] Comment on above: Order Comment: Speci men Type: BLOOD SPECIMEN Ordering Facility[facility] Address: [address] [place] [address] Performed By: #### 2 4321-2, 2777-1, #### [facility] CLIA [id number] [address] [place] [address] [place] Creatinine [Mass/Vol] 1.01 mg/dL High 0.58-0.96 [facility] Comment on above: Order Comment: Speci men Type: BLOOD SPECIMEN Ordering [facility] Address: [address] [place] [address] Performed By: #### 2 4321-2, 2777-1, #### [facility] CLIA [id number] [address] [place] [address] [place] Creatinine and Glomerular filtration rate.predicted panel (S/P/Bld) 62 mL/min/1.73m??? Normal >=60 [facility] Comment on above: Order Comment: Speci men Type: BLOOD SPECIMEN Ordering [facility] Address: [address] [place] [address] Result Comment: Kelsey mated Glomerular Filtration Rate [...] reflect actual GFR. Performed By: #### 2 4321-2, 2777, #### [facility] CLIA [id number] [place], [place] [id number] [place] Glucose [Mass/Vol] 119 mg/dL High 74-99 [facility] Comment on above: Order Comment: Fatou nava Type: BLOOD SPECIMEN Order[facility] Address: [address] [place] [address] Result Comment: The [place] [employer] (ADA) provides guidance for cutoff [...] Standards of Medical Care in Diabetes 2016, [place] [employer]. Diabetes Care. 2016.39(Suppl 1). Performed By: #### 2 4321-2, 2776-09, #### [facility] CLIA [id number] [place], [place] [address] [place] Potassium [Moles/Vol] 5.3 mmol/L High 3.7-5.1 [facility] Comment on above: Order Comment: Fatou nava Type: BLOOD SPECIMEN Order[facility] Address: [address] [place] [address] Performed By: #### 2 4321-2, 2777-, #### [facility] CLIA [id number] [place], [place] [address] [place] Sodium [Moles/Vol] 137 mmol/L Normal 136-144 [facility] Comment on above: Order Comment: Fatou nava Type: BLOOD SPECIMEN Order[facility] Facility[facility] Address: [address] [place] [address] Performed By: #### 2 4321-2, 2776-09, #### [facility] CLIA [id number] [place], [place] [address] [place] Urea nitrogen [Mass/Vol] 18 mg/dL Normal 7-21 [facility] Comment on above: Order Comment: Speci men Type: BLOOD SPECIMEN Order[facility] Address: [address] [place] [address] Performed By: #### 2 4321-2, 2776-09, #### [facility] CLIA [id number] [address] [place] [id number] [place] CBC W Auto Differential pane l (Bld)on 02-23-2024 Basophils (Bld) [#/Vol] 10*3/uL Normal <0.11 [facility] Comment on above: Order Comment: Speci men Type: BLOOD SPECIMEN Order[facility] Address: [address] [place] [address] Performed By: #### 2 1-2, 2776-09, #### [facility] CLIA [id number] [address] [place], [place] [address] [place] Basophils/100 WBC (Bld) 0.2 % Normal [facility] Comment on above: Order Comment: Speci men Type: BLOOD SPECIMEN [facility] Address: [address] [place] [address] Performed By: #### 2 4321-2, 2776-09, #### [facility] CLIA [id number] [address] [place], [place] [address] [place] Differential cell count method Nom (Bld) Auto Normal [facility] Comment on above: Order Comment: Speci men Type: BLOOD SPECIMEN [facility] Address: [address] [place] [address] Performed By: #### 2 4321-2, 2776-09, #### [facility] CLIA [id number] [address] [place], [place] [address] [place] Eosinophils (Bld) [#/Vol] 10*3/uL Normal <0.46 [facility] Comment on above: Order Comment: Speci men Type: BLOOD SPECIMEN Ordering [facility] Address: [address] [place] [address] Performed By: #### 2 4321-2, 2776-09, #### [facility] CLIA [id number] [address] [place] [address] [place] Eosinophils/100 WBC (Bld) 0.0 % Normal [facility] Comment on above: Order Comment: Speci men Type: BLOOD SPECIMEN Ordering [facility] Address: [address] [place] [address] Performed By: #### 2 4321-2, 2776-09, #### [facility] CLIA [id number] [address] [place] [address] [place] Erythrocyte distribution width (RBC) [Ratio] 12.7 % Normal 11.5-15.0 [facility] Comment on above: Order Comment: Speci men Type: BLOOD SPECIMEN [facility] Address: [address] [place] [address] Performed By: #### 2 4321-2, 2776-09, #### [facility] CLIA [id number] [address] [place] [address] [place] Hematocrit (Bld) [Volume fraction] 33.4 % Low 36.0-46.0 [facility] Comment on above: Order Comment: Speci men Type: BLOOD SPECIMEN Ordering [facility] Address: [address] [place] [address] Performed By: #### 2 4321-2, 2776-09, #### [facility] CLIA [id number] [address] [place] [address] [place] Hemoglobin (Bld) [Mass/Vol] 11.0 g/dL Low 11.5-15.5 [facility] Comment on above: Order Comment: Speci men Type: BLOOD SPECIMEN Order[facility] Address: [address] [place] [address] Performed By: #### 2 4321-2, 2776-09, #### [facility] CLIA [id number] [address] [place] [address] [place] Immature granulocytes (Bld) [#/Vol] 0.03 10*3/uL Normal <0.10 [facility] Comment on above: Order Comment: Speci men Type: BLOOD SPECIMEN Order[facility] Address: [address] [place] [address] Performed By: #### 2 4321-2, 2776-09, #### [facility] CLIA [id number] [address] [place] [address] [place] Immature granulocytes/100 WBC (Bld) 0.5 % Normal [facility] Comment on above: Order Comment: Speci men Type: BLOOD SPECIMEN Order[facility] Address: [address] [place] [address] Performed By: #### 2 4320-2, 2776-09, #### [facility] CLIA [id number] [address] [place] [address] [place] Lymphocytes (Bld) [#/Vol] 0.87 10*3/uL Low 1.00-4.00 [facility] Comment on above: Order Comment: Speci men Type: BLOOD SPECIMEN Order[facility] Address: [address] [place] [address] Performed By: #### 2 4320-2, 2776-09, #### [facility] CLIA [id number] [address] [place] [address] [place] Lymphocytes/100 WBC (Bld) 14.0 % Normal [facility] Comment on above: Order Comment: Speci men Type: BLOOD SPECIMEN [facility] Address: [address] [place] [address] Performed By: #### 2 4321-2, 2776-09, #### [facility] CLIA [id number] [address] [place] [address] [place] MCH (RBC) [Entitic mass] 29.2 pg Normal 26.0-34.0 [facility] Comment on above: Order Comment: Speci men Type: BLOOD SPECIMEN [facility] Address: [address] [place] [address] Performed By: #### 2 4321-2, 2776-09, #### [facility] CLIA [id number] [address] [place] [address] [place] MCHC (RBC) [Mass/Vol] 32.9 g/dL Normal 30.5-36.0 [facility] Comment on above: Order Comment: Speci men Type: BLOOD SPECIMEN Order[facility] Address: [address] [place] [address] Performed By: #### 2 4321-2, 2776-09, #### [facility] CLIA [id number] [address] [place] [address] [place] MCV (RBC) [Entitic vol] 88.6 fL Normal 80.0-100.0 [facility] Comment on above: Order Comment: Speci men Type: BLOOD SPECIMEN [facility] Address: [address] [place] [address] Performed By: #### 2 432-2, 2776-09, #### [facility] CLIA [id number] [address] [place] [address] [place] Monocytes (Bld) [#/Vol] 0.32 10*3/uL Normal <0.87 [facility] Comment on above: Order Comment: Speci men Type: BLOOD SPECIMEN [facility] Address: [address] [place] [address] Performed By: #### 2 4321-2, 2776-09, #### [facility] CLIA [id number] [address] [place] [address] [place] Monocytes/100 WBC (Bld) 5.1 % Normal [facility] Comment on above: Order Comment: Speci men Type: BLOOD SPECIMEN [facility] Address: [address] [place] [address] Performed By: #### 2 4321-2, 2776-09, #### [facility] CLIA [id number] [address] [place], [place] [address] [place] Neutrophils (Bld) [#/Vol] 5.00 10*3/uL Normal 1.45-7.50 [facility] Comment on above: Order Comment: Speci men Type: BLOOD SPECIMEN [facility] Address: [address] [place] [address] Performed By: #### 2 4321-2, 2776-09, #### [facility] CLIA [id number] [address] [place], [place] [address] [place] Neutrophils/100 WBC (Bld) 80.2 % Normal [facility] Comment on above: Order Comment: Speci men Type: BLOOD SPECIMEN [facility] Address: [address] [place] [address] Performed By: #### 2 4321-2, 2776-09, #### [facility] CLIA [id number] [address] [place], [place] [address] [place] Nucleated RBC (Bld) [#/Vol] 10*3/uL Normal <0.01 [facility] Comment on above: Order Comment: Speci men Type: BLOOD SPECIMEN [facility] Address: [address] [place] [address] Performed By: #### 2 4321-2, 2776-09, #### [facility] CLIA [id number] [address] [place], [place] [address] [place] Nucleated RBC/100 WBC (Bld) [Ratio] 0.0 /100 WBC Normal [facility] Comment on above: Order Comment: Speci men Type: BLOOD SPECIMEN [facility] Address: [address] [place] [address] Performed By: #### 2 4321-2, 2776-09, #### [facility] CLIA [id number] [address] [place], [place] [address] [place] Platelet mean volume (Bld) [Entitic vol] 11.3 fL Normal 9.0-12.7 [facility] Comment on above: Order Comment: Speci men Type: BLOOD SPECIMEN [facility] Address: [address] [place] [address] Performed By: #### 2 4321-2, 2777-1, #### [facility] CLIA [id number] [address] [place], [place] [address] [place] Platelets (Bld) [#/Vol] 126 10*3/uL Low 150-400 [facility] Comment on above: Order Comment: Speci men Type: BLOOD SPECIMEN [facility] Address: [address] [place] [address] Performed By: #### 2 4321-2, 27703-10, #### [facility] CLIA [id number] [address] [place] [address] [place] RBC (Bld) [#/Vol] 3.77 10*6/uL Low 3.90-5.20 [facility] Comment on above: Order Comment: Speci men Type: BLOOD SPECIMEN [facility] Address: [address] [place] [address] Performed By: #### 2 4321-2, 27703-10, #### [facility] CLIA [id number] [address] [place] [address] [place] WBC (Bld) [#/Vol] 6.23 10*3/uL Normal 3.70-11.00 [facility] Comment on above: Order Comment: Speci men Type: BLOOD SPECIMEN [facility] Address: [address] [place] [address] Performed By: #### 2 4321-2, 27703-10, #### [facility] CLIA [id number] [address] [place], [place] [address] [place] NURSING PROGon 02-23-2024 NURSING PROG HNO ID: [id number] Author: REYES STERN, MONET Service: ? Author Type: Registered Nurse Type: Nursing Progress Note Filed: 02/23/2024 05:42 Note Text: Other: Discussed ordered pain meds with ptx. Ptx states that pain is controlled with scheduled doses of ordered pain meds. Dressing over old ostomy site remains intact, no discharge noted. Bowel sounds hypoactive, (+) tenderness on R lower quadrant area described as aching, pressure-like, bearable. 0500: Had BM, small amount. [facility] PT EDon 02-23-2024 PT ED HNO ID: [id number] Author: MAYA CORTES RD Service: Nutrition Therapy Author Type: Registered Dietitian Type: Patient Education Filed: 02/23/2024 13:51 Note Text: NUTRITION THERAPY PATIENT EDUCATION SERVICE DATE: 02/23/2024 SERVICE TIME: 1:50 PM TOPIC: Diet: GI soft LEARNING ASSESSMENT Individuals Assessed: Patient Preferred Learning Method: No Preference Barriers to Learning: None Evident LEARNING RESPONSE Instruction Provided to: Patient and family member Patient / Family Response: Verbalizes Understanding Method of Instruction: Written instruction/Handouts Verbal instruction Material(s) Provided to Patient: G/L for GI Soft Diet Follow-Up Plan: Follow-up with Primary Care MNT Billing: $ Initial Assessment: 1-15 minutes SIGNATURE: Maya Cortes RD PATIENT NAME: Nancy Sue DATE: February 23, 2024 TIME: 1:50 PM PAGER: [facility] ANES POSTPROC EVALon 024 ANES POSTPROC EVAL HNO ID: [id number] Author: YADIRA DORADO MD Service: Pain Management Author Type: Anesthesiologist Type: Anesthesia Postprocedure Evaluation Filed: 02/22/2024 18:49 Note Text: POST ANESTHESIA EVALUATION NOTE : 1960 Procedure Summary Date: 02/22/24 Room / Location: OR01A / [facility] OR Anesthesia Start: 1616 Anesthesia Stop: 1828 Procedures: CLOSURE ILEOSTOMY (Abdomen) SIGMOIDOSCOPY FLEXIBLE (Colon Sigmoid) Diagnosis: Attention to ileostomy (HCC) Malignant neoplasm of sigmoid colon (HCC) (Attention to ileostomy (HCC) [Z43.2]) (Malignant neoplasm of sigmoid colon (HCC) [C18.7]) Surgeons: Kaley Francois MD Responsible Provider: Yadira Dorado MD Anesthesia Type: general ASA Status: 3 Anesthesia Type: general Airway Type: ETT Last Vitals Vitals Value Taken Time BP 139/72 02/22/24 1845 Temp 37.5 ?C (99.5 ?F) 02/22/24 1827 Pulse 82 02/22/24 1848 Resp 18 02/22/24 1848 SpO2 99 % 02/22/24 1848 Vitals shown include unfiled device data. Post Anesthesia Patient Status Patient Evaluation: PACU. PACU/ICU Patient Condition: stable. Anticipated Disposition: inpatient floor planned admission. Neurological Status: aware and responsive. Pulmonary Status: breathing comfortably on supplemental oxygen Airway Control: returned to baseline unsupported. Cardiovascular Status: stable. Pain Management: clinically adequate - multimodal analgesia pain management approach Postoperative Hydration: acceptable. Intraoperative Events: no significant anesthesia events Post Operative Nausea/Vomiting Status: no significant post operative nausea or vomiting Recommendation: continue current plan of care. Anesthesia Observations No Documentation SIGNATURE: Yadira Dorado MD PATIENT NAME: Nancy Sue DATE: February 22, 2024 TIME: 6:49 PM CSN: [id number] [facility] ANES PRE-OPon 02-22-2024 ANES PRE-OP HNO ID: [id number] Author: YADIRA DORADO MD Service: Anesthesiology Author Type: Anesthesiologist Type: Anesthesia Preprocedure Evaluation Filed: 02/22/2024 15:35 Note Text: ANESTHESIOLOGY DAY OF SURGERY NOTE : 1960 Procedure Information Date/Time: 02/22/24 1350 Procedures: CLOSURE ILEOSTOMY (Abdomen) SIGMOIDOSCOPY FLEXIBLE (Colon Sigmoid) Location: [facility] OR01A / [facility] OR Surgeons: Kaley Francois MD Estimated body mass index is 34.81 kg/m? as calculated from the following: Height as of 01/30/24: 162.6 cm (5' 4 ). Weight as of 01/30/24: 92 kg (202 lb 13.2 oz). Most recent hematocrit and potassium results: Hematocrit 39.4 01/30/2024 Hematocrit (POCT) 34 12/28/2023 Potassium 4.8 01/30/2024 Potassium (POCT) 4.3 12/28/2023 Relevant Problems ANESTHESIA (+) PONV (postoperative nausea and vomiting) CARDIO (+) HTN (hypertension) ENDO (+) Hypothyroidism I - PHYSICAL EVALUATION AIRWAY Patient intubated: No. Tracheostomy tube not present Mallampati: II. TM distance: >3 FB. Neck ROM: full ROM without neurological symptoms. Mouth opening: adequate. Short neck: no. Thick neck: no DENTAL Normal dental observations. Dental findings: teeth intact. Additional exam findings: yes. CARDIOVASCULAR Normal cardiovascular observations. Rhythm: regular Rate: normal PULMONARY Normal pulmonary observations. Breath sounds clear to auscultation. II - ANESTHESIA PLAN ASA Score: 3 Anesthetic Plan: general Airway type: ETT The patient is not a current smoker. NPO Status: adequate Beta Konstantin Monitoring Plan Monitoring plan: standard ASA. Post Procedure Analgesic Plan Postoperative analgesic plan: multimodal analgesia. Informed Consent Anesthetic risks, benefits, alternatives, personnel and consent discussed: yes. Patient / Responsible Alliance Party agrees to proceed: yes Patient / Surrogate agrees to blood products: yes Significant changes in the patient condition since the History and Physical, not otherwise documented in primary service progress note: no. Potential Anesthesia issues that may suggest increased risk of complications or contraindication to planned procedure: none. Vitals Value Taken Time BP 126/74 02/22/24 1336 Pulse 85 02/22/24 1336 Resp 14 02/22/24 1336 Temp 36.7 ?C (98.1 ?F) 02/22/24 1336 SpO2 98 % 02/22/24 1336 Facility-Administered Medications as of 02/22/2024 Medication Dose Route Frequency lidocaine (PF) 10 mg/mL (1 %) 1-2 mg injection (XYLOCAINE) 0.1-0.2 mL INTRADERMAL PRN lactated ringers iv infusion 5-30 mL/hr INTRAVENOUS CONTINUOUS NaCl 0.9% iv flush bag 20 mL INTRAVENOUS PRN heparin 5,000 Units injection 5,000 Units SUBCUTANEOUS ONCE [COMPLETED] acetaminophen 1,000 mg tab(s) (TYLENOL) 1,000 mg ORAL Pre-Op Once [COMPLETED] gabapentin 300 mg cap(s) (NEURONTIN) 300 mg ORAL Pre-Op Once cefTRIAXone 2 g in D5W 100 mL Vial-Bag (ROCEPHIN) 2 g INTRAVENOUS Pre-Op Once metroNIDAZOLE iv piggyback 500 mg in NaCl (iso-osmotic) 100 mL (FLAGYL) 500 mg INTRAVENOUS Pre-Op Once [COMPLETED] alvimopan 12 mg cap(s) (ENTEREG) 12 mg ORAL Pre-Op Once [COMPLETED] promethazine 12.5 mg tab(s) (PHENERGAN) 12.5 mg ORAL Pre-Op Once lactated ringers iv infusion 30 mL/hr INTRAVENOUS CONTINUOUS Outpatient Medications as of 02/22/2024 Medication Sig loperamide (IMODIUM) 2 mg cap(s) Take 2 capsules by mouth three times a day before meals. acetaminophen (TYLENOL EXTRA STRENGTH) 500 mg tablet Take 2 tablets by mouth every 6 hours as needed for pain. levothyroxine (SYNTHROID) 50 mcg tablet Take 50 mcg by mouth once daily. [] enoxaparin (LOVENOX) 40 mg/0.4 mL Inject 0.4 mL subcutaneously once daily for 21 days. lactobacillus rhamnosus (CULTURELLE) 10 billion cell capsule Take 1 capsule by mouth once daily. ibuprofen (MOTRIN) 200 mg tablet Take 2 tablets by mouth every 6 hours. iv contrast (will be provided with radiology [...] Contrast as designated per enteric contrast guidelines Ascorbic Yjue-Jvivouuuw-Ynn (EMERGEN-C) 1,000 mg pwep Take 1 Packet by mouth once daily. iron glycinate,polysacch cmplx (IRON BIS GLYCIN-FE P-SAC CMPLX ORAL) Take 20 mg by mouth once daily. collagen, hydrolysate, bovine, (COLLAGEN, HYDR, BOVINE,, BULK,) 100 % powd Take 1 Dose by (more content not included)... Normal [facility] BRIEF OP NOTon 02-22-2024 BRIEF OP NOT HNO ID: [id number] Author: PINEDA NGO MD Service: Colorectal Author Type: Resident Type: Brief Op Note Filed: 02/22/2024 18:21 Note Text: Patient Name: Nancy Sue Log ID: [id number] Surgery Date: 02/22/2024 Incision/Procedure Start Time: 4:44 PM Incision Close/Procedure End Time: 6:10 PM Surgeon(s) and Professor Of English(s): Surgeon(s) and Role: * Kaley Francois MD - Primary * Malorie Goncalves MD - Resident - Assisting * Pineda Ngo MD - Resident - Assisting Anesthesia: General (endotracheal) Procedures: 1. Loop ileostomy closure Findings: - Dense adhesions around the stoma - Stapled zhpq-qd-qwct anastomosis of loop ileostomy Complications: no immediate complications EBL: 20 mL Wound Classification: Class 3, operative wound contaminated with stoma closure Counts: Correct Specimens: ID Type Source Tests Collected by Time Destination 1 : Blood Blood TYPE + SCREEN Kaley Francois MD 02/22/2024 4:32 PM A : ileostomy trimming Tissue Small Bowel, Ileostomy SURGICAL PATHOLOGY Kaley Francois MD 02/22/2024 5:34 PM Drains/Devices/Prosthetics : - None Preoperative Diagnosis: Ileostomy in place Postop Diagnosis: Same Postop Plan of Care: - PACU then RNF - Multimodal pain control - NPO with sips/chips/meds, mIVF, antiemetics prn - DVT PPx Pineda Ngo MD General Surgery (Res) February 22, 2024 6:19 PM P: [phone] [facility] NURSING PROGon 02-22-2024 NURSING PROG HNO ID: [id number] Author: REYES STERN RN Service: ? Author Type: Registered Nurse Type: Nursing Progress Note Filed: 02/23/2024 04:42 Note Text: Transfer Note: PATIENT NAME: Nancy Sue Patient Location: [place] [address]/[place] [address] Room: [place] [address] Patient transferred into room/unit [place] [address] in stable condition. Actions taken: Oriented to room and plan of care, call light within reach. [facility] NURSING PROG HNO ID: [id number] Author: JERRY KIMBALL RN Service: Nursing Author Type: Registered Nurse Type: Nursing Progress Note Filed: 02/22/2024 21:11 Note Text: Pt has been ready from d/c from PACU since 2044. Pt will remain in PACU until nurse on PK3C is able to take report. [facility] OPERATIVE NOon 02-22-2024 OPERATIVE NO HNO ID: [id number] Author: KALEY FRANCOIS MD Service: Colorectal Author Type: Physician Type: Operative Report Filed: 02/22/2024 22:19 Note Text: COLON AND RECTAL SURGERY OPERATIVE REPORT PATIENT NAME: Nancy Sue ADMISSION DATE: 02/22/2024 LOG ID: [id number] SURGERY/PROCEDURE DATE: 02/22/2024 INCISION/PROCEDURE START TIME: 4:44 PM INCISION CLOSE/PROCEDURE END TIME: 6:10 PM AGE: [age] year old SEX: female SURGEON(S)/PROCEDURALIST(S ) AND LEAF STRIPPER(S): Surgeon(s) and Role: * Kaley Francois MD - Primary * Malorie Goncalves MD - Resident - Assisting * Pineda Ngo MD - Resident - Assisting No Additional Staff ANESTHESIA: General PREOPERATIVE DIAGNOSIS (ES): Attention to ileostomy POSTOPERATIVE DIAGNOSIS (ES): Same NAME OF OPERATION: Ileostomy Closure Flexible sigmoidoscopy INDICATIONS FOR PROCEDURE: 63 year old woman s/p laparoscopic converted to open LAR/DLI on 12/28/23 for sigmoid cancer. Pt now presenting for ileostomy closure. R/B/A was discussed with patient and informed consent was obtained OPERATIVE FINDINGS: Dense adhesion between stoma and abdominal wall. DESCRIPTION OF PROCEDURE: After obtaining informed consent, the patient was brought to the operating room and placed in the supine position. Appropriate preoperative mechanical and chemical deep venous thrombosis prophylaxis, as well as preoperative prophylactic parenteral antibiotics were given. General endotracheal anesthesia was gently induced. Bilateral lower extremity pneumatic compression devices were applied and all pressure points were cushioned. A Calix cathter was inserted. A flexible sigmoidoscopy was performed confirming a patent colorectal anastomosis, that is well healed. The abdomen was then preped and draped in the standard sterile fashion. A circumferential incision was made around the ostomy at the mucocutaneous junction. We made our way around circumferentially to divide all adhesions and connective tissue to the ostomy and associated mesentery. This was taken down to the fascia where the ostomy was freed from the fascia as well. There was dense adhesions between the stoma and abdominal wall, which require meticulous dissection. At this point the small intestine came outside the peritoneal cavity. After obtaining sufficient bowel length to perform an anastomosis, both segments of ileum were aligned, mesenteric windows were made at the proximal and distal transection point. Antimesenteric enterotomies were murray. Making sure to not incorporate mesentery or adjacent tissues, a stapled ixtl-lo-oqse functional end-to-end ileo-ileal anastomosis was made with a FATUMA 80 surgical stapler (purple load). The anastomosis was evaluated through the common enterotomy and no bleeding was visualized. After this, a TA 90 surgical stapler (green load) was used to transect ileostomy trimming, making sure the FATUMA staple lines were offset. The specimen, including the loop ileostomy edges was sent to pathology. The anastomosis appeared to be well vascularized, widely patent, and without tension or torsion. The TA staple line was reinforced with interrupted lembert using 3'0 vicryl. The corner of the FATUMA staple line was reinforced with one 3 vicryl suture. The mesenteric defect was closed with running 3'0 silk. The anastomosis was returned to the abdomen and hemostasis was assured. The ileum distal to the anastomosis, equating to the TI, was noted to be adherent to the midline incision. It did not appear obstructed and decision was made to leave it in place. The fascia was closed with interrupted figure of 8 using 0' PDS suture. The wound was irrigated and the ostomy site was narrowed with a 2-0 Vicryl pursestring suture and packing was placed. ESTIMATED BLOOD LOSS: 25cc SPECIMENS: ileostomy trimming DRAINS: None COMPLICATIONS: None INTRAOPERATIVE FLUIDS: See anesthesia record. SPONGE/INSTRUMENT/NEEDLE COUNTS: Correct x2. PRESENCE STATEMENT: I was present for the entire procedure as I have dictated above. Kaley Francois M.D. Department of Surgery Division of Colon and Rectal Surgery [facility] PT EDon 02-22-2024 PT ED HNO ID: [id number] Author: PURVI CRISOSTOMO, RN Service: ? Author Type: Registered Nurse Type: Patient Education Filed: 02/22/2024 13:39 Note Text: PATIENT EDUCATION TOPIC: PROCEDURE / SURGERY: Pre-op Teaching: Protocols PATIENT NAME: Nancy Sue PATIENT LOCATION: [facility] OR POOL/[facility] OR POOL READINESS TO LEARN COGNITIVE ABILITY: Alert and oriented MOTIVATION TO LEARN: Interested FAMILY SUPPORT: None - Unavailable/disinterested INSTRUCTION PROVIDED TO: Patient PATIENT LEARNS BEST BY: Individual Instruction FACTORS AFFECTING LEARNING: None PHYSICAL LIMITATIONS AFFECTING LEARNING: None LEARNING RESPONSE DIAGNOSIS: ADULT: Well Adult PATIENT/FAMILY RESPONSE: Information received as demonstrated by interest and questions METHOD OF INSTRUCTION: Individual instruction FOLLOW-UP PLAN: Complete - No need for follow-up INSTRUCTIONAL AIDS USED: NA SUPPLEMENTAL MATERIAL PROVIDED TO PATIENT: None REFERRAL (RECOMMENDATION): None Electronically Signed By: Purvi Crisostomo [facility] SURGICAL PATHOLOGYon 024 CASE REPORT [facility] Comment on above: Order Comment: Spectrinidad nava Type: BLOOD SPECIMEN Ordering Facility: [facility] Address: [address] [place] [address] Result Comment: Surg ical Pathology Report Case: [id number] Authorizing Provider: Kaley Francois MD Collected: 02/22/2024 05:34 PM Ordering Location: [facility] Received: 02/24/2024 07:32 PM Operating Room Pathologist: Jhoan Crespo MD Specimen: Small Bowel, Ileostomy, ileostomy trimming Performed By: #### 2 4321-2, , 2776-09 #### [facility] CLIA [id number] [address] [place] [address] [place] CLINICAL HISTORY Normal [facility] Comment on above: Order Comment: Fatou nava Type: BLOOD SPECIMEN Ordering Facility: [facility] Address: [address] [place] [address] Result Comment: Pre- op diagnosis: Attention to ileostomy (HCC) [Z43.2] Malignant neoplasm of sigmoid colon (HCC) [C18.7] Performed By: #### 2 4321-2, 66155-9, 277- #### [facility] CLIA [id number] [address] [place] [address] FINAL DIAGNOSIS Normal [facility] Comment on above: Order Comment: Speci men Type: BLOOD SPECIMEN Ordering Facility: [facility] Address: [address] [place] [address] Result Comment: Ileo stomy, excision: - Enterocutaneous tissue with focal nonspecific inflammatory changes, foreign body giant cell reaction, and fibrous adhesion, consistent with ostomy site. JEL 02/26/2024 Performed By: #### 2 4321-2, 93136-0, 2777-1 #### [facility] CLIA [id number] [address] [place] [address] FINAL PERFORMING LAB Normal [facility] Comment on above: Order Comment: Speci men Type: BLOOD SPECIMEN Ordering Facility: [facility] Address: [address] [place] [address] Result Comment: Diag nostic interpretation performed at [facility], [address] [place] [address] CLIA# [id number] Unhairing Machine Operator: Isai Ku M.D. Performed By: #### 2 4321-2, 58085-9, 2776- #### [facility] CLIA [id number] [address] [place] [address] GROSS DESCRIPTION Normal [facility] Comment on above: Order Comment: Speci men Type: BLOOD SPECIMEN Ordering Facility: [facility] Address: [address] [place] [address] Result Comment: A. S mall Bowel, Ileostomy Received in formalin designated ileostomy trimmings is a Y-shaped segment of bowel with one arm of the Y measuring 5.5 cm in length and averaging 2.8 cm in circumference and the other arm of the Y measuring 7 cm in length and averaging 3.5 cm in circumference. The two segments come together at a cutaneous rim and opening, ostomy site, measuring 2 cm in diameter. The cutaneous tissue is chavez-maldonado and smooth. The adjacent mucosa protrudes through the opening and is chavez-red and granular. The remainder the mucosal surface is chavez with normal mucosal ridges. No masses are grossly appreciated. A uniforms sales representative section of the perpendicular ostomy site is submitted in 1 cassette. BF February 25, 2024 2:53 PM Gross examination performed at [facility], [address] [place] [address] CLIA # [id number] Performed By: #### 2 4321-2, 72020-0, 2777-1 #### [facility] CLIA [id number] [place] TYPE + SCREENon 02-22-2024 ABO A Normal [facility] Comment on above: Order Comment: Speci men Type: BLOOD SPECIMENOrdering Facility: [facility] Address: [address] [place] [address] Performed By: #### T SCR ####[facility] [id number] [address] HISTORICAL AB SCR STATUS Negative [facility] Comment on above: Order Comment: Speci men Type: BLOOD SPECIMENOrdering Facility: [facility] Address: [address] [place] [address] Performed By: #### T SCR ####[facility] [id number] [place] [address] [place] Rh Nom (Bld) Positive [facility] Comment on above: Order Comment: Speci men Type: BLOOD SPECIMENOrdering Facility: [facility] Address: [address] [place] [address] Performed By: #### T SCR ####[facility] [id number] [place] [id number] [place] TYPE AND SCREEN EXPIRATION 02/25/2024 23:59 Normal [facility] Comment on above: Order Comment: Speci men Type: BLOOD SPECIMENOrdering Facility: [facility] Address: [address] [place] [address] Performed By: #### T SCR ####[facility] [id number] [place] [id number] [place] RF Colon Views W barium cont rast PRon 02-05-2024 IMPRESSION: No leak or obstruction. Template Clerk: DIANA Transcribe Date/Time: Feb 05 2024 11:04A Dictated by : SARAH WASHBURN MD This examination was interpreted and the report reviewed and electronically signed by: SARAH WASHBURN MD on Feb 05 2024 11:07AM [facility] RADIOLOGY * * *Final Report* * * DATE OF EXAM: Feb 05 2024 10:12AM MMX 5385 - XR COLON SINGLE CONTRAST / PROCEDURE REASON: Attention to ileostomy (HCC) * * * * Physician Interpretation * * * * WATER SOLUBLE CONTRAST ENEMA HISTORY: Preoperative assessment prior to ileostomy takedown. COMPARISON: CT abdomen/pelvis 11/07/2023 TECHNIQUE: Water soluble-contrast enema was performed after insertion of a rectal tube. Spot and overhead images were obtained. Contrast: Rectal: 480 ml of GASTROGRAFIN Fluoroscopy radiation summary: Fluoroscopy time: 1:12 (min:sec). Air kerma: 58.7 mGy. RESULT: Tray Checker: Right lower quadrant ostomy. Enteric anastomotic staple lines in the central pelvis. No dilated bowel. Contrast material flows retrograde through the rectum. Contrast opacifies the colon up to the right colon/cecum without anastomotic leak or obstruction. [facility] RADIOLOGY Provider, [facility] - 02/05/2024 * * *Final Report* * * DATE OF EXAM: Feb 05 2024 10:12AM MMX 5385 - XR COLON SINGLE CONTRAST / PROCEDURE REASON: Attention to ileostomy (HCC) * * * * Physician Interpretation * * * * WATER SOLUBLE CONTRAST ENEMA HISTORY: Preoperative assessment prior to ileostomy takedown. COMPARISON: CT abdomen/pelvis 11/07/2023 TECHNIQUE: Water soluble-contrast enema was performed after insertion of a rectal tube. Spot and overhead images were obtained. Contrast: Rectal: 480 ml of GASTROGRAFIN Fluoroscopy radiation summary: Fluoroscopy time: 1:12 (min:sec). Air kerma: 58.7 mGy. RESULT: Tray Checker: Right lower quadrant ostomy. Enteric anastomotic staple lines in the central pelvis. No dilated bowel. Contrast material flows retrograde through the rectum. Contrast opacifies the colon up to the right colon/cecum without anastomotic leak or obstruction. IMPRESSION IMPRESSION: No leak or obstruction. Template Clerk: DIANA Transcribe Date/Time: Feb 05 2024 11:04A Dictated by : SARAH WASHBURN MD This examination was interpreted and the report reviewed and electronically signed by: SARAH WASHBURN MD on Feb 05 2024 11:07AM EST [facility] Radiology Study observation (narrative) [facility] RF Colon Views W barium cont rast PROrdered By: [facility] Provider on 02-05-2024 [facility] XR COLON SINGLE CONTRASTon 0 02-05-2024 XR COLON SINGLE CONTRAST * * *Final Report* * * DATE OF EXAM: Feb 05 2024 10:12AM MMX 5385 - XR COLON SINGLE CONTRAST / PROCEDURE REASON: Attention to ileostomy (HCC) * * * * Physician Interpretation * * * * WATER SOLUBLE CONTRAST ENEMA HISTORY: Preoperative assessment prior to ileostomy takedown. COMPARISON: CT abdomen/pelvis 11/07/2023 TECHNIQUE: Water soluble-contrast enema was performed after insertion of a rectal tube. Spot and overhead images were obtained. Contrast: Rectal: 480 ml of GASTROGRAFIN Fluoroscopy radiation summary: Fluoroscopy time: 1:12 (min:sec). Air kerma: 58.7 mGy. RESULT: Tray Checker: Right lower quadrant ostomy. Enteric anastomotic staple lines in the central pelvis. No dilated bowel. Contrast material flows retrograde through the rectum. Contrast opacifies the colon up to the right colon/cecum without anastomotic leak or obstruction. IMPRESSION: No leak or obstruction. Template Clerk: DIANA Transcribe Date/Time: Feb 05 2024 11:04A Dictated by : SARAH WASHBURN MD This examination was interpreted and the report reviewed and electronically signed by: SARAH WASHBURN MD on Feb 05 2024 11:07AM EST [id number] Normal [facility] CBC W Auto Differential pane l (Bld)on 01-30-2024 Basophils (Bld) [#/Vol] 0.03 10*3/uL Normal <0.11 [facility] Comment on above: Order Comment: Speci men Type: BLOOD SPECIMEN Ordering Facility: [facility] Address: [address] [place] [address] Performed By: #### 5 7021-8 #### [facility] CLIA [id number] [facility]. [address] [place] Basophils/100 WBC (Bld) 0.5 % Normal [facility] Comment on above: Order Comment: Speci men Type: BLOOD SPECIMEN Ordering Facility: [facility] Address: [address] [place] [address] Performed By: #### 5 7021-8 #### [facility] CLIA [id number] [address] [place] [address] [place] Differential cell count method Nom (Bld) Auto Normal [facility] Comment on above: Order Comment: Speci men Type: BLOOD SPECIMEN Ordering Facility: [facility] Address: [address] [place] [address] Performed By: #### 5 7021-8 #### [facility] CLIA [id number] [address] [place] [address] [place] Eosinophils (Bld) [#/Vol] 0.20 10*3/uL Normal <0.46 [facility] Comment on above: Order Comment: Speci men Type: BLOOD SPECIMEN Ordering Facility: [facility] Address: [address] [place] [address] Performed By: #### 5 7021-8 #### [facility] [place] [id number] [address] [place] Eosinophils/100 WBC (Bld) 3.6 % Normal [facility] Comment on above: Order Comment: Speci men Type: BLOOD SPECIMEN Order[facility] Address: [address] [place] [address] Performed By: #### 5 7021-8 #### [facility] CLIA [id number] [place] Erythrocyte distribution width (RBC) [Ratio] 12.6 % Normal 11.5-15.0 [facility] Comment on above: Order Comment: Speci men Type: BLOOD SPECIMEN Ordering Facility[facility] Address: [address] [place] [address] Performed By: #### 5 7021-8 #### [facility] CLIA [id number] [address] [place] [address] [place] Hematocrit (Bld) [Volume fraction] 39.4 % Normal 36.0-46.0 [facility] Comment on above: Order Comment: Speci men Type: BLOOD SPECIMEN Order[facility] Address: [address] [place] [address] Performed By: #### 5 7021-8 #### [facility] CLIA [id number] [address] [place] [address] [place] Hemoglobin (Bld) [Mass/Vol] 12.6 g/dL Normal 11.5-15.5 [facility] Comment on above: Order Comment: Speci men Type: BLOOD SPECIMEN Order[facility] Address: [address] [place] [address] Performed By: #### 5 7021-8 #### [facility] [place] [id number] [place] [address] [place] Immature granulocytes (Bld) [#/Vol] 10*3/uL Normal <0.10 [facility] Comment on above: Order Comment: Speci men Type: BLOOD SPECIMEN Order[facility] Address: [address] [place] [address] Performed By: #### 5 7021-8 #### [facility] CLIA [id number] [address] [place] [address] [place] Immature granulocytes/100 WBC (Bld) 0.2 % Normal [facility] Comment on above: Order Comment: Speci men Type: BLOOD SPECIMEN Order[facility] Address: [address] [place] [address] Performed By: #### 5 7021-8 #### [facility] CLIA [id number] [address] [place] [address] [place] Lymphocytes (Bld) [#/Vol] 2.00 10*3/uL Normal 1.00-4.00 [facility] Comment on above: Order Comment: Speci men Type: BLOOD SPECIMEN Order[facility] Address: [address] [place] [address] Performed By: #### 5 7021-8 #### [facility] IA [id number] [facility] Lymphocytes/100 WBC (Bld) 36.2 % Normal [facility] Comment on above: Order Comment: Speci men Type: BLOOD SPECIMEN Order[facility] Address: [address] [place] [address] Performed By: #### 5 7021-8 #### [facility] IA [id number] [address] [place] MCH (RBC) [Entitic mass] 29.5 pg Normal 26.0-34.0 [facility] Comment on above: Order Comment: Speci men Type: BLOOD SPECIMEN Order[facility] Address: [address] [place] [address] Performed By: #### 5 7021-8 #### [facility] IA [id number] [address] [place] [address] [place] MCHC (RBC) [Mass/Vol] 32.0 g/dL Normal 30.5-36.0 [facility] Comment on above: Order Comment: Speci men Type: BLOOD SPECIMEN Order[facility] Address: [address] [place] [address] Performed By: #### 5 7021-8 #### [facility] IA [id number] [address] [place] [address] [place] MCV (RBC) [Entitic vol] 92.3 fL Normal 80.0-100.0 [facility] Comment on above: Order Comment: Speci men Type: BLOOD SPECIMEN Order[facility] Address: [address] [place] [address] Performed By: #### 5 7021-8 #### [facility] [place] [id number] [place] [address] [place] Monocytes (Bld) [#/Vol] 0.33 10*3/uL Normal <0.87 [facility] Comment on above: Order Comment: Speci men Type: BLOOD SPECIMEN Order[facility] Address: [address] [place] [address] Performed By: #### 5 7021-8 #### [facility] IA [id number] [address] [place] [address] [place] Monocytes/100 WBC (Bld) 6.0 % Normal [facility] Comment on above: Order Comment: Speci men Type: BLOOD SPECIMEN Order[facility] Address: [address] [place] [address] Performed By: #### 5 7021-8 #### [facility] IA [id number] [address] [place] [id number] [place] Neutrophils (Bld) [#/Vol] 2.96 10*3/uL Normal 1.45-7.50 [facility] Comment on above: Order Comment: Speci men Type: BLOOD SPECIMEN Order[facility] Address: [address] [place] [address] Performed By: #### 5 7021-8 #### [facility] IA [id number] [address] [place] [address] [place] Neutrophils/100 WBC (Bld) 53.5 % Normal [facility] Comment on above: Order Comment: Speci men Type: BLOOD SPECIMEN Order[facility] Address: [address] [place] [address] Performed By: #### 5 7021-8 #### [facility] IA [id number] [address] [place] [address] [place] Nucleated RBC (Bld) [#/Vol] 10*3/uL Normal <0.01 [facility] Comment on above: Order Comment: Speci men Type: BLOOD SPECIMEN Order[facility] Address: [address] [place] [address] Performed By: #### 5 7021-8 #### [facility] IA [id number] [address] [place] [address] [place] Nucleated RBC/100 WBC (Bld) [Ratio] 0.0 /100 WBC Normal [facility] Comment on above: Order Comment: Speci men Type: BLOOD SPECIMEN Ordering Facility: [facility] Address: [address] [place] [address] Performed By: #### 5 7021-8 #### [facility] CLIA [id number] [address] [place] [address] [place] Platelet mean volume (Bld) [Entitic vol] 10.7 fL Normal 9.0-12.7 [facility] Comment on above: Order Comment: Speci men Type: BLOOD SPECIMEN Ordering Facility: [facility] Address: [address] [place] [address] Performed By: #### 5 7021-8 #### [facility] CLIA [id number] [address] [place] [address] [place] Platelets (Bld) [#/Vol] 157 10*3/uL Normal 150-400 [facility] Comment on above: Order Comment: Speci men Type: BLOOD SPECIMEN Ordering Facility: [facility] Address: [address] [place] [address] Performed By: #### 5 7021-8 #### [facility] CLIA [id number] [address] [place] [address] [place] RBC (Bld) [#/Vol] 4.27 10*6/uL Normal 3.90-5.20 [facility] Comment on above: Order Comment: Speci men Type: BLOOD SPECIMEN Ordering Facility: [facility] Address: [address] [place] [address] Performed By: #### 5 7021-8 #### [facility] CLIA [id number] [address] [place] [address] [place] WBC (Bld) [#/Vol] 5.53 10*3/uL Normal 3.70-11.00 [facility] Comment on above: Order Comment: Speci men Type: BLOOD SPECIMEN Ordering Facility: [facility] Address: [address] [place] [address] Performed By: #### 5 7021-8 #### [facility] CLIA [id number] [address] [place] [address] [place] Comprehensive metabolic 2000 panelon 01-30-2024 Albumin [Mass/Vol] 4.4 g/dL Normal 3.9-4.9 [facility] Comment on above: Order Comment: Speci men Type: BLOOD SPECIMEN Ordering Facility: [facility] Address: [address] [place] [address] Performed By: #### 2 4323-8 #### [facility] IA [id number] [address] [place] [address] [place] ALP [Catalytic activity/Vol] 71 U/L Normal 34-123 [facility] Comment on above: Order Comment: Speci men Type: BLOOD SPECIMEN Ordering Facility: [facility] Address: [address] [place] [address] Performed By: #### 2 4323-8 #### [facility] IA [id number] [place] [address] [place] ALT [Catalytic activity/Vol] 42 U/L High 7-38 [facility] Comment on above: Order Comment: Speci men Type: BLOOD SPECIMEN Ordering Facility: [facility] Address: [address] [place] [address] Performed By: #### 2 4323-8 #### [facility] IA [id number] [address] [place] [address] [place] Anion gap [Moles/Vol] 11 mmol/L Normal 9-18 [facility] Comment on above: Order Comment: Speci men Type: BLOOD SPECIMEN Ordering Facility: [facility] Address: [address] [place] [address] Performed By: #### 2 4323-8 #### [facility] IA [id number] [address] [place] [address] [place] AST [Catalytic activity/Vol] 39 U/L High 13-35 [facility] Comment on above: Order Comment: Speci men Type: BLOOD SPECIMEN Ordering [facility] Address: [address] [place] [address] Performed By: #### 2 4323-8 #### [facility] CLIA [id number] [address] [place] [address] [place] Bilirubin [Mass/Vol] 0.3 mg/dL Normal 0.2-1.3 [facility] Comment on above: Order Comment: Speci men Type: BLOOD SPECIMEN Ordering [facility]: [facility] Address: [address] [place] [address] Performed By: #### 2 4323-8 #### [facility] CLIA [id number] [address] [place] [address] [place] Calcium [Mass/Vol] 9.5 mg/dL Normal 8.5-10.2 [facility] Comment on above: Order Comment: Speci men Type: BLOOD SPECIMEN Ordering Facility: [facility] Address: [address] [place] [address] Performed By: #### 2 4323-8 #### [facility] IA [id number] [address] [place] [address] [place] Chloride [Moles/Vol] 106 mmol/L High 97-105 [facility] Comment on above: Order Comment: Speci men Type: BLOOD SPECIMEN Ordering Facility: [facility] Address: [address] [place] [address] Performed By: #### 2 4323-8 #### [facility] IA [id number] [address] [place] [address] [place] CO2 [Moles/Vol] 21 mmol/L Low 22-30 [facility] Comment on above: Order Comment: Speci men Type: BLOOD SPECIMEN Ordering Facility: [facility] Address: [address] [place] [address] Performed By: #### 2 4323-8 #### [facility] IA [id number] [address] [place] [address] [place] Creatinine [Mass/Vol] 1.03 mg/dL High 0.58-0.96 [facility] Comment on above: Order Comment: Speci men Type: BLOOD SPECIMEN Ordering [facility] Address: [address] [place] [address] Performed By: #### 2 4323-8 #### [facility] CLIA [id number] [address] [place] [address] [place] Creatinine and Glomerular filtration rate.predicted panel (S/P/Bld) 61 mL/min/1.73m??? Normal >=60 [facility] Comment on above: Order Comment: Fatou nava Type: BLOOD SPECIMEN Ordering Facility: [facility] Address: [address] [place] [address] Result Comment: Kelsey mated Glomerular Filtration Rate [...] actual GFR. Performed By: #### 2 4323-8 #### [facility] CLIA [id number] [address] [place] [address] [place] Glucose [Mass/Vol] 90 mg/dL Normal 74-99 [facility] Comment on above: Order Comment: Fatou nava Type: BLOOD SPECIMEN Ordering Facility: [facility] Address: [address] [place] [address] Result Comment: The [place] [employer] (ADA) provides guidance for cutoff [...] Standards of Medical Care in Diabetes 2016, [place] [employer]. Diabetes Care. 2016.39(Suppl 1). Performed By: #### 2 4323-8 #### [facility] CLIA [id number] [address] [place] [address] [place] [facility] Potassium [Moles/Vol] 4.8 mmol/L Normal 3.7-5.1 [facility] Comment on above: Order Comment: Speci men Type: BLOOD SPECIMEN Order[facility] Address: [address] [place] [address] Performed By: #### 2 4323-8 #### [facility] CLIA [id number] [address] [place] [address] [place] [facility] Protein [Mass/Vol] 6.9 g/dL Normal 6.3-8.0 [facility] Comment on above: Order Comment: Speci men Type: BLOOD SPECIMEN Ordering [facility] Address: [address] [place] [address] Performed By: #### 2 4323-8 #### [facility] CLIA [id number] [place], [place] [address] [facility] Sodium [Moles/Vol] 138 mmol/L Normal 136-144 [facility] Comment on above: Order Comment: Speci men Type: BLOOD SPECIMEN Ordering Facility[facility] Address: [address] [place] [address] Performed By: #### 2 4323-8 #### [facility] CLIA [id number] [address] [place] [address] [facility] Urea nitrogen [Mass/Vol] 26 mg/dL High 7-21 [facility] Comment on above: Order Comment: Speci men Type: BLOOD SPECIMEN Ordering Facility: [facility] Address: [address] [place] [address] Performed By: #### 2 4323-8 #### [facility] CLIA [id number] [address] [place] [address] [place] HISTORY PHYSICALon HISTORY PHYSICAL HNO ID: [id number] Author: DANELLE OTERO PA-C Service: ? Author Type: Physician Professor Of English Type: H&P Filed: 01/31/2024 09:06 Note Text: HISTORY AND PHYSICAL EXAMINATION SERVICE DATE: 01/30/2024 SERVICE TIME: 9:56 AM PRIMARY CARE PHYSICIAN: Justin Buckner MD Assessment/Plan 1. Pre-op evaluation Surgery scheduled on 02/22/2024. 2. Hypertension, unspecified type BP 124/80. No current Rx medications. Denies any CP, dizziness, double vision, or SYKES PCP following, stable. Last 14 BP Last 14 Encounter BP Readings: Date: BP: 01/30/2024 124/80 01/24/2024 127/69 01/17/2024 123/73 01/17/2024 116/69 01/11/2024 136/83 12/28/2023 112/68 12/19/2023 142/73 11/27/2023 127/70 11/23/2023 133/76 11/21/2023 162/81 11/13/2023 148/86 10/26/2023 116/84 10/24/2023 175/76 10/12/2023 98/63 3. Hyperlipidemia, unspecified hyperlipidemia type No current Rx medication, managing with diet. PCP following. 4. Malignant neoplasm of colon, unspecified part of colon (HCC) 5. Ileostomy present (HCC) S/p laparoscopic converted to open partial colectomy with low pelvic anastomosis with colostomy on 12/28/23 for T2N0 sigmoid cancer. She completed 5 treatments of neoadjuvant chemotherapy. Follows with heme/onc Dr. Jose Wing, last seen 01/11/24. See HPI, having above surgery. 6. PONV (postoperative nausea and vomiting) History of nausea with previous colonoscopies. No issues with most recent surgeries. 7. Hypothyroidism, unspecified type Stable on Levothyroxine (Synthroid). PCP following. 8. Other iron deficiency anemia No longer taking oral iron. CBC from 01/19/24 demonstrates H/H of 12.0/35.0. Asymptomatic, stable. Will get repeat CBC today. 01/31/24: CBC stable with H/H of 12.6/39.4. 9. Obesity (BMI 30-39.9) Body mass index is 34.81 kg/m?. 10. Hyponatremia BMP from 01/19/24 demonstrates Na of 128. Appears to be stable since her colon surgery in December. Will get repeat CMP today. 5/23/24: CMP showed improvement of Na and is now WNL at 138. ANESTHESIA FINDINGS: Intubation History: No history of difficult intubation Significant Anesthesia Considerations: Postop nausea/vomiting; no issues with most recent surgeries Airway Exam: General: Normal appearance Mallampati Score is CLASS II ULBT: Class I - Lower incisors can bite the upper lip above the dawna line Neck: Normal appearance and function, Distance from hyoid to mentum during neck extension is at least 3 finger breaths Mouth: Normal tongue size and Mouth opening greater than 2 finger breaths Dentition: Intact and Caps/crowns Airway History: No abnormal airway history STOP BANG Score: Criteria: Hypertension Age over 50 (63 year old) Score = 2 REASON FOR VISIT: Nancy Sue is a 63 year old female who is scheduled for CLOSURE ILEOSTOMY SIGMOIDOSCOPY FLEXIBLE at the request of Dr. Kaley Francois for consultation. My final recommendation will be communicated back to the requesting physician by way of shared medical record or letter. The patient has the following: ACTIVE PROBLEM LIST Rectal Cancer (Hcc) Cancer of Sigmoid (Hcc) Hld (Hyperlipidemia) Htn (Hypertension) Morbid Obesity (Hcc) Hypothyroidism Ponv (Postoperative Nausea and Vomiting) Iron Deficiency Anemia Colon Cancer (Hcc) Ileostomy Present (Hcc) Postoperative Pain Skin Breakdown Irritant Contact Dermatitis Associated With Fecal Stoma Subjective CHIEF COMPLAINT: Attention to ileostomy (HCC) [Z43.2] Malignant neoplasm of sigmoid colon (HCC) [C18.7] HPI: Patient is a 63 year old female presenting to pre-anesthesia consultation. Patient recently underwent laparoscopic converted to open partial colectomy with low anastomosis and ileostomy. She also completed 5 rounds of neoadjuvant therapy. PAST MEDICAL HISTORY Diagnosis Date Anemia High cholesterol HTN (hypertension) Hypothyroidism PAST SURGICAL HISTORY Procedure Laterality Date ;TOTAL HYSTERECTMY TUBE(S) AND/OR OVARY BRONCHOSCOPY W/PLACEMENT TRACHEAL STENT COLONOSCOPY SCREENING LIPOMA (MEDIUM) FAMILY HISTORY Problem Relation Age of Onset Stroke Mother COPD Father Heart Father Colon Cancer Brother SOCIAL HISTORY: Social History Tobacco Use Smoking status: Never Smokeless tobacco: Never Vaping Use Vaping Use: Never used Substance Use Topics Alcohol use: Yes Comment: 2 drinks a couple times a month Drug use: Never MEDICATIONS: Prior to Admission medications as of 01/24/24 1337 Medication Sig Last Dose Taking loperamide (IMODIUM) 2 mg cap(s) Take 2 capsules by mouth three times a day before meals. lactobacillus rhamnosus (CULTURELLE) 10 billion cell capsule Take 1 capsule by mouth once daily. acetaminophen (TYLENOL EXTRA STRENGTH) 500 mg tablet Take 2 tablets by mouth every 6 hours as needed for pain. ibuprofen (MOTRIN) 200 mg tablet Take 2 tablets by mouth every 6 hours. iv contrast (will be provided with (more content not included)... Normal [facility] Basic metabolic 2000 panelon 01-19-2024 Anion gap [Moles/Vol] 13 mmol/L Normal 9-18 [facility] Comment on above: Order Comment: Speci men Type: BLOOD SPECIMEN Order[facility] Address: [address] [place] [address] Performed By: #### 2 4321-2, 2776-09, #### [facility] CLIA [id number] [address] [place] [address] [place] Calcium [Mass/Vol] 9.6 mg/dL Normal 8.5-10.2 [facility] Comment on above: Order Comment: Speci men Type: BLOOD SPECIMEN Ordering Facility[facility] Address: [address] [place] [address] Performed By: #### 2 4321-2, 2776-09, #### [facility] CLIA [id number] [address] [place] [address] [place] Chloride [Moles/Vol] 95 mmol/L Low 97-105 [facility] Comment on above: Order Comment: Speci men Type: BLOOD SPECIMEN Order[facility] Address: [address] [place] [address] Performed By: #### 2 4321-2, 2776-09, #### [facility] CLIA [id number] [address] [place] [address] [place] CO2 [Moles/Vol] 20 mmol/L Low 22-30 [facility] Comment on above: Order Comment: Speci men Type: BLOOD SPECIMEN Order[facility] Address: [address] [place] [address] Performed By: #### 2 4321-2, 2777 #### [facility] CLIA [id number] [address] [place] [address] [place] Creatinine [Mass/Vol] 0.90 mg/dL Normal 0.58-0.96 [facility] Comment on above: Order Comment: Fatou nava Type: BLOOD SPECIMEN Order[facility] Address: [address] [place] [address] Performed By: #### 2 4321-2, 2776-09, #### [facility] CLIA [id number] [address] [place] [address] [place] Creatinine and Glomerular filtration rate.predicted panel (S/P/Bld) 72 mL/min/1.73m??? Normal >=60 [facility] Comment on above: Order Comment: Fatou nava Type: BLOOD SPECIMEN Order[facility] Address: [address] [place] [address] Result Comment: Kelsey mated Glomerular Filtration Rate [...] reflect actual GFR. Performed By: #### 2 4321-2, 2776-09, #### [facility] CLIA [id number] [place], [place] [id number] [place] Glucose [Mass/Vol] 106 mg/dL High 74-99 [facility] Comment on above: Order Comment: Fatou nava Type: BLOOD SPECIMEN [facility] Address: [address] [place] [address] Result Comment: The [place] [employer] (ADA) provides guidance for cutoff [...] Standards of Medical Care in Diabetes 2016, [place] [employer]. Diabetes Care. 2016.39(Suppl 1). Performed By: #### 2 4321-2, 2776-09, #### [facility] CLIA [id number] [address] [place] [address] [place] Potassium [Moles/Vol] 4.6 mmol/L Normal 3.7-5.1 [facility] Comment on above: Order Comment: Speci men Type: BLOOD SPECIMEN [facility] Address: [address] [place] [address] Performed By: #### 2 4321-2, 2776-09, #### [facility] CLIA [id number] [place] [address] [place] Sodium [Moles/Vol] 128 mmol/L Low 136-144 [facility] Comment on above: Order Comment: Speci men Type: BLOOD SPECIMEN [facility] Address: [address] [place] [address] Performed By: #### 2 4321-2, 2776-09, #### [facility] CLIA [id number] [place] [address] [place] Urea nitrogen [Mass/Vol] 21 mg/dL Normal 7-21 [facility] Comment on above: Order Comment: Speci men Type: BLOOD SPECIMEN [facility] Address: [address] [place] [address] Performed By: #### 2 4321-2, 2776-09, #### [facility] CLIA [id number] [place] [address] [place] CBC panel Auto (Bld)on 01-18 Erythrocyte distribution width (RBC) [Ratio] 12.7 % Normal 11.5-15.0 [facility] Comment on above: Order Comment: Speci men Type: BLOOD SPECIMEN Order[facility] Address: [address] [place] [address] Performed By: #### 2 4321-2, 2776-09, #### [facility] CLIA [id number] [address] [place] [address] [place] Hematocrit (Bld) [Volume fraction] 35.0 % Low 36.0-46.0 [facility] Comment on above: Order Comment: Speci men Type: BLOOD SPECIMEN [facility] Address: [address] [place] [address] Performed By: #### 2 4321-2, 2776-09, #### [facility] CLIA [id number] [address] [place] [address] [place] Hemoglobin (Bld) [Mass/Vol] 12.0 g/dL Normal 11.5-15.5 [facility] Comment on above: Order Comment: Speci men Type: BLOOD SPECIMEN [facility] Address: [address] [place] [address] Performed By: #### 2 4321-2, 2776-09, #### [facility] CLIA [id number] [address] [place] [address] [place] MCH (RBC) [Entitic mass] 29.9 pg Normal 26.0-34.0 [facility] Comment on above: Order Comment: Speci men Type: BLOOD SPECIMEN [facility] Address: [address] [place] [address] Performed By: #### 2 4321-2, 2776-09, #### [facility] CLIA [id number] [address] [place] [address] [place] MCHC (RBC) [Mass/Vol] 34.3 g/dL Normal 30.5-36.0 [facility] Comment on above: Order Comment: Speci men Type: BLOOD SPECIMEN [facility] Address: [address] [place] [address] Performed By: #### 2 4321-2, 2776-09, #### [facility] CLIA [id number] [address] [place], [place] [id number] [place] MCV (RBC) [Entitic vol] 87.3 fL Normal 80.0-100.0 [facility] Comment on above: Order Comment: Speci men Type: BLOOD SPECIMEN [facility] Address: [address] [place] [address] Performed By: #### 2 432-2, 2776-09, #### [facility] CLIA [id number] [address] [place] [address] [place] Nucleated RBC (Bld) [#/Vol] 10*3/uL Normal <0.01 [facility] Comment on above: Order Comment: Speci men Type: BLOOD SPECIMEN [facility] Address: [address] [place] [address] Performed By: #### 2 4320-2, 2776-09, #### [facility] CLIA [id number] [address] [place] [address] [place] Platelet mean volume (Bld) [Entitic vol] 10.2 fL Normal 9.0-12.7 [facility] Comment on above: Order Comment: Speci men Type: BLOOD SPECIMEN [facility] Address: [address] [place] [address] Performed By: #### 2 4321-2, 2776-09, #### [facility] CLIA [id number] [address] [place] [address] [place] Platelets (Bld) [#/Vol] 158 10*3/uL Normal 150-400 [facility] Comment on above: Order Comment: Speci men Type: BLOOD SPECIMEN [facility] Address: [address] [place] [address] Performed By: #### 2 4321-2, 2776-09, #### [facility] CLIA [id number] [address] [place] [address] [place] RBC (Bld) [#/Vol] 4.01 10*6/uL Normal 3.90-5.20 [facility] Comment on above: Order Comment: Speci men Type: BLOOD SPECIMEN [facility] Address: [address] [place] [address] Performed By: #### 2 4321-2, 277-1, #### [facility] CLIA [id number] [address] [place] [address] [place] WBC (Bld) [#/Vol] 4.23 10*3/uL Normal 3.70-11.00 [facility] Comment on above: Order Comment: Speci men Type: BLOOD SPECIMEN [facility] Address: [address] [place] [address] Performed By: #### 2 4321-2, 277-, #### [facility] CLIA [id number] [place] CNDSon 01-19-2024 [facility] HNO ID: [id number] Author: SUSY MERIDA MD Service: Colorectal Author Type: Resident Type: Discharge Summary Filed: 01/19/2024 10:12 Note Text: -- Attestation signed by Kaley Francois MD at 01/19/2024 10:45 AM I evaluated the patient and personally participated in the freed components. I agree with the resident's findings and plan with the following revisions and/or additions: Home today after another WOCN session. F/u next Signature: Kaley Francois MD Service Date: 01/19/2024 -- COLORECTAL SURGERY DISCHARGE SUMMARY PATIENT NAME: Nancy Sue ADMISSION DATE: 01/17/2024 DISCHARGE DATE: 01/19/2024 ATTENDING PHYSICIAN: Kaley Francois MD Code Status: Not on file Highest Readmission Risk Score: 18 The 30 day readmissions risk score is derived from an internally validated risk model which evaluates patient level characteristics, utilization history, medication orders and lab results up until the day of discharge. Patients with a score of 40 or above are considered highest risk for readmission. Specific patient level drivers will be listed at the bottom of the summary. 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 The patient was admitted on 01/16 and wound ostomy care team saw her with the following plan for her pouching: Cleanse skin with soap and water Apply Domeboro soaks to denuded skin for 15 minutes (while controlling output with suction if needed) Pat dry and apply no sting skin prep to denuded skin Once skin prep is dry, apply stoma powder and dust off excess powder Apply Hollihesive petals to denuded skin and caulk with paste Apply a bead of paste around the hole in the ostomy pouch barrier 7. Apply the Gila 1 1/8 deep convex pouch 8. Hold hands over the pouch for 2 minutes, then apply ostomy belt She did not have any further leakage from her stoma and she felt comfortable changing her stoma pouch at home. She was discharged on 01/18. BP 123/73 Pulse 74 Temp 36.6 ?C (97.9 ?F) (Oral) Resp 16 Ht 162.6 cm (5' 4 ) Wt 89.8 kg (198 lb) SpO2 99% BMI 33.99 kg/m? Exam: GENERAL: Alert and oriented, no acute distress, cooperative. LUNGS: Non labored breathing ABDOMEN: soft, non tender, non distended, denuded and erythematous skin around stoma site. Stoma pink and patent with gold liquid output WOUND: clean, dry and intact Active Hospital Problems Diagnosis Date Noted Skin breakdown 01/17/2024 Resolved Hospital Problems No resolved problems to display. Transitions of Care Critical Issues: Follow up in clinic on 01/23 LABS AND PROCEDURES PENDING AT DISCHARGE: No pending results. CONSULTING TEAMS DURING HOSPITALIZATION: [facility] Treatment Team: Attending Provider: Kaley Francois MD PATIENT CONDITION AT DISCHARGE: Stable DISCHARGE DISPOSITION: Home with Self Care INFORMATION PROVIDED TO PATIENT: Discharge Instructions Symptoms or health problems to watch for after I leave the hospital: -Increasing abdominal pain or swelling unrelieved by rest, medication, and ice. -Severe or unrelenting nausea or vomiting. -Fever greater than 101.5?F (38.6?C) or chills. -Unable to take in liquids or solid foods for greater than 24 hours. -Unusual drainage coming from the incision or any increased redness or warmth around the incision. -Shortness of breath. -Chest pain. -Racing heartbeat. -Difficulty urinating. -Bloody, dark, or tarry stool. For these or any other concerning symptom, please call immediately for advice Pain management: You may take Tylenol (acetaminophen) or Ibuprofen every 6-8 hours as needed for your postoperative pain. You may take them together or rotate them every 3 hours. Do not take more than 4000 mg/day of acetaminophen combined. Medications: Please continue taking your home medications and postop medications from your most recent hospitalization for your surgery as prescribed. Lovenox: You are being prescribed a medication called Lovenox. This medication is used to prevent blood clots from forming in your legs. It is VERY important that you take this medication. Please follow the instructions below on how to administer this medication. The nurses will also (more content not included)... [facility] CONSULTon 01-19-2024 CONSULT HNO ID: [id number] Author: CHI BONILLA APRN.WILDFIRE PREVENTION SPECIALIST Service: Wound/Ostomy Author Type: Nurse Practitioner Type: Consults Filed: 01/19/2024 11:45 Note Text: STOMA CARE EDUCATION FOLLOW-UP NOTE Patient Name: Nancy Sue Date: January 19, 2024 Time: 11:30 AM STOMA ASSESSMENT Stoma type: Loop ileostomy Location: RLQ Protrusion: Budded with os pointing down in a deep abdominal crease Mucosal condition and color: Red and moist. Mucocutaneous Junction: Not visible at this time Output: Yes: Effluent Supportive Tissue: Semisoft Pouching System: Marlan 1 1/8 deep convexity pouch remains intact. Time Increment: 35 minutes Supplies Given: Yes: 6 Marlan pouches, adhesive remover, skin barrier, Harsha Hollihesive, stomahesive powder, stomahesive paste and directions of how to pouch ileostomy PATIENT EDUCATION Skin Care Topic: Prevention Dressing/ointments READINESS TO LEARN Cognitive Ability: Alert and oriented Motivation to Learn: Eager Family Support: None - Unavailable/disinterested Instruction Provided To: Patient Patient Learns Best By: Multiple Methods Factors Affecting Learning: None Physical Limitations Affecting Learning: None LEARNING RESPONSE Diagnosis- Skin Impairment: Severe irritant contact dermatitis due to stool leakage from ileostomy Method of Instruction: Individual instruction Written instruction - handouts Verbal instruction Demonstration-Hands on Learning Instructional Aids Used: Hand-out(s) Patient/Family Response: Verbalizes understanding of: Use of powder to absorb excess moisture, how to cut and use Hollihesive to petal around the stoma, use of paste for caulking and application of the Gila deep convexity pouch FOLLOW-UP PLAN: Complete Referral Recommendation: Home Health Agency Signature: Chi Bonilla APRN.CNP This is an electronically created document. IF PRINTED, PLEASE DO NOT REMOVE FROM THE CHART OR MODIFY PRINTED COPY. PATIENT EDUCATION Skin Care Topic: Prevention Dressing/ointments Normal [facility] Magnesium SerPl-mCblessingon 01-18 Magnesium [Mass/Vol] 2.1 mg/dL Normal 1.7-2.3 [facility] Comment on above: Order Comment: Speci men Type: BLOOD SPECIMEN [facility]ing Facility[facility] Address: [address] [place] [address] Performed By: #### 2 4321-2, 2777-1, 06665-2 #### [facility] CLIA [id number] [address] [place] [address] [place] Phosphate SerPl-mCncon 01-18 Phosphate [Mass/Vol] 4.6 mg/dL Normal 2.7-4.8 [facility] Comment on above: Order Comment: Speci men Type: BLOOD SPECIMEN [facility]ing Facility[facility] Address: [address] [place] [address] Performed By: #### 2 4321-2, 2777-1, 51271-0 #### [facility] CLIA [id number] [address] [place] [address] [place] Basic metabolic 2000 panelon 01-18-2024 Anion gap [Moles/Vol] 13 mmol/L Normal 9-18 [facility] Comment on above: Order Comment: Speci men Type: BLOOD SPECIMEN [facility] Address: [address] [place] [address] Performed By: #### 2 4321-2 #### [facility] CLIA [id number] [address] [place] [address] [place] Calcium [Mass/Vol] 9.7 mg/dL Normal 8.5-10.2 [facility] Comment on above: Order Comment: Speci men Type: BLOOD SPECIMEN [facility] Address: [address] [place] [address] Performed By: #### 2 4321-2 #### [facility] CLIA [id number] [address] [place] [address] [place] Chloride [Moles/Vol] 95 mmol/L Low 97-105 [facility] Comment on above: Order Comment: Speci men Type: BLOOD SPECIMEN [facility] Address: [address] [place] [address] Performed By: #### 2 4321-2 #### [facility] CLIA [id number] [address] [place] [address] [place] CO2 [Moles/Vol] 22 mmol/L Normal 22-30 [facility] Comment on above: Order Comment: Speci men Type: BLOOD SPECIMEN Ordering Facility: [facility] Address: [address] [place] [id number] Performed By: #### 2 4321-2 #### [facility] CLIA [id number] [place] [id number] [place] Creatinine [Mass/Vol] 0.92 mg/dL Normal 0.58-0.96 [facility] Comment on above: Order Comment: Fatou nava Type: BLOOD SPECIMEN [facility] Facility[facility] Address: [address] [place] [address] Performed By: #### 2 4321-2 #### [facility] CLIA [id number] [place] [address] [place] Creatinine and Glomerular filtration rate.predicted panel (S/P/Bld) 70 mL/min/1.73m??? Normal >=60 [facility] Comment on above: Order Comment: Fatou nava Type: BLOOD SPECIMEN Ordering Facility: [facility] Address: [address] [place] [address] Result Comment: Kelsey mated Glomerular Filtration Rate [...] reflect actual GFR. Performed By: #### 2 4321-2 #### [facility] CLIA [id number] [place] [address] [place] Glucose [Mass/Vol] 117 mg/dL High 74-99 [facility] Comment on above: Order Comment: Fatou nava Type: BLOOD SPECIMEN [facility] Address: [address] [place] [address] Result Comment: The [place] [employer] (ADA) provides guidance for cutoff [...] Standards of Medical Care in Diabetes 2016, [place] [employer]. Diabetes Care. 2016.39(Suppl 1). Performed By: #### 2 4321-2 #### [facility] CLIA [id number] [place] [address] [place] Potassium [Moles/Vol] 5.0 mmol/L Normal 3.7-5.1 [facility] Comment on above: Order Comment: Speci men Type: BLOOD SPECIMEN [facility] Address: [address] [place] [address] Performed By: #### 2 4321-2 #### [facility] CLIA [id number] [address] [place] [address] [place] Sodium [Moles/Vol] 130 mmol/L Low 136-144 [facility] Comment on above: Order Comment: Speci men Type: BLOOD SPECIMEN [facility] Address: [address] [place] [address] Performed By: #### 2 4321-2 #### [facility] CLIA [id number] [address] [place] [address] [place] Urea nitrogen [Mass/Vol] 20 mg/dL Normal 7-21 [facility] Comment on above: Order Comment: Venkati men Type: BLOOD SPECIMEN [facility] Address: [address] [place] [address] Performed By: #### 2 4321-2 #### [facility] CLIA [id number] [address] [place] [address] [place] Anion gap [Moles/Vol] 12 mmol/L Normal 9-18 [facility] Comment on above: Order Comment: Venkati men Type: BLOOD SPECIMENOrdering Facility: [facility] Address: [address] [place] [address] Performed By: #### 2 4321-2, 2777-1, 32604-0 ####[facility] [id number] [place] [address] [place] Calcium [Mass/Vol] 9.6 mg/dL Normal 8.5-10.2 [facility] Comment on above: Order Comment: Speci men Type: BLOOD SPECIMENOrdering Facility: [facility] Address: [address] [place] [address] Performed By: #### 2 4321-2, 2776-09, ####[facility] [id number] [place] [id number] [place] Chloride [Moles/Vol] 96 mmol/L Low 97-105 [facility] Comment on above: Order Comment: Speci men Type: BLOOD SPECIMENOrdering Facility: [facility] Address: [address] [place] [address] Performed By: #### 2 4321-2, 2776-09, ####[facility] [id number] [place] [id number] [place] CO2 [Moles/Vol] 23 mmol/L Normal 22-30 [facility] Comment on above: Order Comment: Speci men Type: BLOOD SPECIMENOrdering Facility: [facility] Address: [address] [place] [address] Performed By: #### 2 4321-2, 2776-09, ####[facility] [id number] [place] [id number] [place] Creatinine [Mass/Vol] 0.95 mg/dL Normal 0.58-0.96 [facility] Comment on above: Order Comment: Speci men Type: BLOOD SPECIMENOrdering Facility: [facility] Address: [address] [place] [address] Performed By: #### 2 4321-2, 2776-09, ####[facility] [id number] [place] [address] [place] Creatinine and Glomerular filtration rate.predicted panel (S/P/Bld) 67 mL/min/1.73m??? Normal >=60 [facility] Comment on above: Order Comment: Fatou nava Type: BLOOD SPECIMENOrdering Facility: [facility] Address: [address] [place] [address] Result Comment: Kelsey mated Glomerular Filtration Rate [...] reflect actual GFR. Performed By: #### 2 4321-2, 2777-1, ####[facility] [id number] [place] [id number] [place] Glucose [Mass/Vol] 115 mg/dL High 74-99 [facility] Comment on above: Order Comment: Fatou nava Type: BLOOD SPECIMENOrdering Facility: [facility] Address: [address] [place] [address] Result Comment: The [place] Diabetes [employer] (ADA) provides guidance for cutoff [...] Standards of Medical Care in Diabetes 2016, [place] [employer]. Diabetes Care. 2016.39(Suppl 1). Performed By: #### 2 4321-2, 2777-1, ####[facility] [id number] [place] [id number] [place] Potassium [Moles/Vol] Normal [facility] Comment on above: Order Comment: Fatou nava Type: BLOOD SPECIMENOrdering Facility: [facility] Address: [address] [place] [address] Result Comment: Unab le to assay due to interference from hemolysis. Suggest reorder as clinically indicated. Performed By: #### 2 4321-2, 277-, ####[facility] [id number] [place] [id number] [place] Sodium [Moles/Vol] 131 mmol/L Low 136-144 [facility] Comment on above: Order Comment: Speci men Type: BLOOD SPECIMENOrdering Facility: [facility] Address: [address] [place] [address] Performed By: #### 2 4321-2, 2776-09, ####[facility] [id number] [place] [id number] [place] Urea nitrogen [Mass/Vol] 22 mg/dL High 7-21 [facility] Comment on above: Order Comment: Speci men Type: BLOOD SPECIMENOrdering Facility: [facility] Address: [address] [place] [address] Performed By: #### 2 4321-2, 2776-09, ####[facility] [id number] [place] [id number] [place] CBC panel Auto (Bld)on 01-17 Erythrocyte distribution width (RBC) [Ratio] 12.8 % Normal 11.5-15.0 [facility] Comment on above: Order Comment: Speci men Type: BLOOD SPECIMEN [facility] Address: [address] [place] [address] Performed By: #### 2 4321-2, 2776-09, #### [facility] CLIA [id number] [place] [id number] [place] Hematocrit (Bld) [Volume fraction] 33.4 % Low 36.0-46.0 [facility] Comment on above: Order Comment: Speci men Type: BLOOD SPECIMEN [facility] Address: [address] [place] [address] Performed By: #### 2 4321-2, 2776-09, #### [facility] CLIA [id number] [address] [place] [address] [place] Hemoglobin (Bld) [Mass/Vol] 11.6 g/dL Normal 11.5-15.5 [facility] Comment on above: Order Comment: Speci men Type: BLOOD SPECIMEN [facility] Address: [address] [place] [address] Performed By: #### 2 4321-2, 2776-09, #### [facility] CLIA [id number] [address] [place] [address] [place] MCH (RBC) [Entitic mass] 30.5 pg Normal 26.0-34.0 [facility] Comment on above: Order Comment: Speci men Type: BLOOD SPECIMEN [facility] Address: [address] [place] [address] Performed By: #### 2 4321-2, 2776-09, #### [facility] CLIA [id number] [address] [place] [address] [place] MCHC (RBC) [Mass/Vol] 34.7 g/dL Normal 30.5-36.0 [facility] Comment on above: Order Comment: Speci men Type: BLOOD SPECIMEN [facility] Address: [address] [place] [address] Performed By: #### 2 4321-2, 2776-09, #### [facility] CLIA [id number] [address] [place] [address] [place] MCV (RBC) [Entitic vol] 87.9 fL Normal 80.0-100.0 [facility] Comment on above: Order Comment: Speci men Type: BLOOD SPECIMEN [facility] Address: [address] [place] [address] Performed By: #### 2 4321-2, 27703-10, #### [facility] CLIA [id number] [address] [place] [address] [place] Nucleated RBC (Bld) [#/Vol] 10*3/uL Normal <0.01 [facility] Comment on above: Order Comment: Speci men Type: BLOOD SPECIMEN [facility] Address: [address] [place] [address] Performed By: #### 2 4321-2, 2776-09, #### [facility] CLIA [id number] [address] [place] [address] [place] Platelet mean volume (Bld) [Entitic vol] 10.6 fL Normal 9.0-12.7 [facility] Comment on above: Order Comment: Speci men Type: BLOOD SPECIMEN [facility] Address: [address] [place] [address] Performed By: #### 2 4321-2, 2776-09, #### [facility] CLIA [id number] [address] [place] [address] [place] Platelets (Bld) [#/Vol] 169 10*3/uL Normal 150-400 [facility] Comment on above: Order Comment: Speci men Type: BLOOD SPECIMEN [facility] Address: [address] [place] [address] Performed By: #### 2 4321-2, 2776-09, #### [facility] CLIA [id number] [address] [place] [address] [place] RBC (Bld) [#/Vol] 3.80 10*6/uL Low 3.90-5.20 [facility] Comment on above: Order Comment: Speci men Type: BLOOD SPECIMEN [facility] Address: [address] [place] [address] Performed By: #### 2 4321-2, 2776-09, #### [facility] CLIA [id number] [address] [place] [address] [place] WBC (Bld) [#/Vol] 3.43 10*3/uL Low 3.70-11.00 [facility] Comment on above: Order Comment: Speci men Type: BLOOD SPECIMEN [facility] Address: [address] [place] [address] [place] [address] Performed By: #### 2 4321-2, 2777-1, 87591-6 #### [facility] [id number] [address] [place] [address] [place] CONSULTon 01-18-2024 CONSULT HNO ID: [id number] Author: SONY HUTCHINS RN Service: ? Author Type: Registered Nurse Type: Consults Filed: 01/18/2024 14:32 Note Text: STOMA CARE POST-OPERATIVE ASSESSMENT AND PATIENT EDUCATION Patient Name: Nancy Sue Date: January 18, 2024 Time: 2:25 PM ET Care Outcome: peristomal skin assessment, pouch troubleshooting, treatment of denuded peristomal skin, ostomy education ET's Next Scheduled Visit: Sunday01/19/24 STOMA ASSESSMENT Stoma type: Loop ileostomy (os points down at 6 o clock) Diameter: 1 1/8 Location: RLQ Protrusion: Budded but sits in a deep abdominal crease Mucosal condition and color: Red and moist. Franklyn: No Mucocutaneous Junction: Intact Output: Yes: Flatus and Effluent Peristomal Skin: Erythema and severely denuded Location of Skin Impairment: NA Treatment of Skin Impairment: NA Supportive Tissue: Semisoft Pouching System: Pouching process is as follows: Cleanse skin with soap and water Apply Domeboro soaks to denuded skin for 15 minutes (while controlling output with suction if needed) Pat dry and apply no sting skin prep to denuded skin Once skin prep is dry, apply stoma powder and dust off excess powder Apply Hollihesive petals to denuded skin and caulk with paste Apply a bead of paste around the hole in the ostomy pouch barrier 7. Apply the Gila 1 1/8 deep convex pouch 8. Hold hands over the pouch for 2 minutes, then apply ostomy belt Time Increment: 45 minutes Comments: NA Supplies Given: Yes: 4 gila pouches left at bedside PATIENT EDUCATION Skin Care Topic: Prevention Observations READINESS TO LEARN Cognitive Ability: Alert and oriented Motivation to Learn: Eager Interested Family Support: None - Unavailable/disinterested Instruction Provided To: Patient Patient Learns Best By: Multiple Methods Factors Affecting Learning: Emotional Factors: NA Physical Limitations Affecting Learning: None LEARNING RESPONSE Diagnosis- Skin Impairment: NA Method of Instruction: Verbal instruction Demonstration-Hands on Learning Instructional Aids Used: NA Patient/Family Response: Verbalizes understanding of: ostomy pouch change process, but will need reinforcement and additional support FOLLOW-UP PLAN: Reassess Reinforce Supplemental Material Provided to Patient: Patient Education print outs: Referral Recommendation: Home Health Agency Signature: Sony Hutchins RN This is an electronically created document. IF PRINTED, PLEASE DO NOT REMOVE FROM THE CHART OR MODIFY PRINTED COPY. Normal [facility] ED PROV NOTEon 01-18-2024 ED PROV NOTE HNO ID: [id number] Author: SALBADOR BECKETT MD Service: ? Author Type: Physician Type: ED Provider Notes Filed: 01/18/2024 14:38 Note Text: ED Provider Note Patient Name: Nancy Sue : 1960 SERVICE DATE: 01/17/24 History Patient presents with: Ostomy Care: New ostomy site red, open, painful, warm. 63-year-old female status post laparoscopic converted to open low anterior resection, splenic flexure mobilization, diverting loop ileostomy, 12/28/2023 with . Seen in the office today with peristomal skin breakdown weeping skin worsening pain. Difficulty taking care of ostomy at home. Advised to present to ER for colorectal consult/admission. No abdominal pain no nausea vomiting no other symptoms. No cellulitic change PAST MEDICAL HISTORY Diagnosis Date Anemia High cholesterol HTN (hypertension) Hypothyroidism PAST SURGICAL HISTORY Procedure Laterality Date ;TOTAL HYSTERECTMY TUBE(S) AND/OR OVARY BRONCHOSCOPY W/PLACEMENT TRACHEAL STENT COLONOSCOPY SCREENING LIPOMA (MEDIUM) FAMILY HISTORY Problem Relation Age of Onset Stroke Mother COPD Father Heart Father Colon Cancer Brother Social History Tobacco Use Smoking status: Never Smokeless tobacco: Never Vaping Use Vaping Use: Never used Substance and Sexual Activity Alcohol use: Yes Comment: 2 drinks a couple times a month Drug use: Never Sexual activity: Not on file ALLERGIES Allergen Reactions Shziuue-Qgv-Fok Red* Other: See Comments, Unknown, Myalgia myalgias Review of Systems Constitutional: Negative for chills, fatigue and fever. HENT: Negative for congestion and sore throat. Eyes: Negative for pain and visual disturbance. Respiratory: Negative for cough and shortness of breath. Cardiovascular: Negative for chest pain and palpitations. Gastrointestinal: Negative for abdominal pain, diarrhea and vomiting. Genitourinary: Negative for dysuria, flank pain and hematuria. Musculoskeletal: Negative for back pain, myalgias and neck stiffness. Skin: Positive for color change and wound. Negative for rash. Neurological: Negative for weakness and numbness. Psychiatric/Behavioral: Negative for hallucinations and suicidal ideas. Physical Exam Vitals BP Pulse Temp Temp src Resp SpO2 Weight Height 01/17/24 1539 01/17/24 1539 01/17/24 1539 01/18/24 0743 01/17/24 2024 01/17/24 1539 01/17/24 1540 01/17/24 1540 121/70 (!) 101 36.4 ?C (97.5 ?F) Oral 15 99 % 89.8 kg (198 lb) 1.626 m (5' 4 ) Physical Exam Vitals and nursing note reviewed. Constitutional: General: She is not in acute distress. Appearance: She is not diaphoretic. HENT: Head: Normocephalic and atraumatic. Right Ear: External ear normal. Left Ear: External ear normal. Nose: Nose normal. Eyes: General: Right eye: No discharge. Left eye: No discharge. Conjunctiva/sclera: Conjunctivae normal. Pupils: Pupils are equal, round, and reactive to light. Cardiovascular: Rate and Rhythm: Normal rate and regular rhythm. Heart sounds: Normal heart sounds. Pulmonary: Effort: Pulmonary effort is normal. No respiratory distress. Breath sounds: Normal breath sounds. No stridor. No wheezing or rales. Abdominal: General: Bowel sounds are normal. There is no distension. Palpations: Abdomen is soft. Tenderness: There is no abdominal tenderness. Musculoskeletal: General: No tenderness. Normal range of motion. Cervical back: Normal range of motion and neck supple. Skin: General: Skin is warm and dry. Findings: No rash. Comments: Ostomy site as noted. Neurological: General: No focal deficit present. Mental Status: She is alert and oriented to person, place, and time. Psychiatric: Behavior: Behavior normal. Diagnostic Testing ED Labs Ordered and Reviewed BASIC METABOLIC PANEL - Abnormal; Notable for the following components: Result Value Ref Range Glucose 117 (*) 74 - 99 mg/dL BUN 28 (*) 7 - 21 mg/dL Creatinine 1.22 (*) 0.58 - 0.96 mg/dL Sodium 130 (*) 136 - 144 mmol/L Chloride 93 (*) 97 - 105 mmol/L CO2 20 (*) 22 - 30 mmol/L Estimated Glomerular Filtration Rate 50 (*) >=60 mL/min/1.73m? All other components within normal limits COMPLETE BLOOD COUNT AND DIFFERENTIAL Procedures ED Course / Clinical Impression Clinical Impressions as of 01/18/24 1431 History of creation of ostomy (HCC) Skin irritation MDM / Disposition / Plan Seen by colorectal surgery in the department. Admitted to their service. Stable. Declines pain or nausea medication. History and Record Review External record(s) reviewed: prior outpatient record and prior inpatient record. Management Management of the patient was discussed with:admitting team Disposition The patient was admitted. Counseled patient regarding lab results and suspected diagnosis. Admitted to Regular Nursing Floor. SIGNATURE: MD Merary Mehta MICHAEL 01/18/24 1438 Normal [facility] Magnesium [facility] 01-17 Magnesium [Mass/Vol] 2.1 mg/dL Normal 1.7-2.3 [facility] Comment on above: Order Comment: Fatou nava Type: BLOOD SPECIMENOrdering Facility: [facility] Address: [address] [place] [address] Performed By: #### 2 4321-2, 2777-1, 96441-9 ####[facility] [id number] [address] [facility] NURSING PROGon 01-18-2024 NURSING PROG HNO ID: [id number] Author: ANGEL KANG RN Service: ? Author Type: Registered Nurse Type: Nursing Progress Note Filed: 01/18/2024 06:31 Note Text: Ostomy changed this shift twice. Area under stoma red and excoriated. Powder from home used during ostomy changes (stoma powder once and antifungal powder used the other time). Skin prep used around reddened areas prior to bag application. Ostomy draining liquid brown/yellow. Pt tolerated changes well. Normal [facility] [Mass/Vol] Normal [facility] Comment on above: Order Comment: Fatou nava Type: BLOOD SPECIMENOrdering Facility: [facility] Address: [address] [place] [address] Result Comment: Unab le to assay due to interference from hemolysis. Suggest reorder as clinically indicated. Performed By: #### 2 4321-2, 2776-09, ####[facility] [id number] [place] [address] [place] Basic metabolic 2000 panelon 01-17-2024 Anion gap [Moles/Vol] 17 mmol/L Normal 9-18 [facility] Comment on above: Order Comment: Speci men Type: BLOOD SPECIMEN Ordering Facility: [facility] Address: [address] [place] [address] Performed By: #### 2 4321-2, 2776-09, #### [facility] CLIA [id number] [address] [place] [address] [place] Calcium [Mass/Vol] 10.2 mg/dL Normal 8.5-10.2 [facility] Comment on above: Order Comment: Speci men Type: BLOOD SPECIMEN Ordering Facility: [facility] Address: [address] [place] [address] Performed By: #### 2 4321-2, 2776-09, #### [facility] CLIA [id number] [place] [address] [place] Chloride [Moles/Vol] 93 mmol/L Low 97-105 [facility] Comment on above: Order Comment: Speci men Type: BLOOD SPECIMEN Ordering Facility: [facility] Address: [address] [place] [address] Performed By: #### 2 4321-2, 2776-09, #### [facility] CLIA [id number] [address] [place], [place] [address] [place] CO2 [Moles/Vol] 20 mmol/L Low 22-30 [facility] Comment on above: Order Comment: Speci men Type: BLOOD SPECIMEN Ordering Facility: [facility] Address: [address] [place] [address] Performed By: #### 2 4321-2, 2777-1, #### [facility] CLIA [id number] [address] [place] [id number] [place] Creatinine [Mass/Vol] 1.22 mg/dL High 0.58-0.96 [facility] Comment on above: Order Comment: Fatou nava Type: BLOOD SPECIMEN Ordering Facility: [facility] Address: [address] [place] [address] Performed By: #### 2 4321-2, 2777-, #### [facility] CLIA [id number] [address] [place] [address] [place] Creatinine and Glomerular filtration rate.predicted panel (S/P/Bld) 50 mL/min/1.73m??? Low >=60 [facility] Comment on above: Order Comment: Fatou nava Type: BLOOD SPECIMEN Ordering Facility[facility] Address: [address] [place] [address] Result Comment: Kelsey mated Glomerular Filtration Rate [...] reflect actual GFR. Performed By: #### 2 4321-2, 2777-, #### [facility] CLIA [id number] [place], [place] [id number] [place] Glucose [Mass/Vol] 117 mg/dL High 74-99 [facility] Comment on above: Order Comment: Fatou nava Type: BLOOD SPECIMEN Ordering Facility: [facility] Address: [address] [place] [address] Result Comment: The [place] [employer] (ADA) provides guidance for cutoff [...] Standards of Medical Care in Diabetes 2016, [place] [employer]. Diabetes Care. 2016.39(Suppl 1). Performed By: #### 2 4321-2, 2776-09, #### [facility] CLIA [id number] [address] [place] [address] [place] Potassium [Moles/Vol] 5.0 mmol/L Normal 3.7-5.1 [facility] Comment on above: Order Comment: Fatou nava Type: BLOOD SPECIMEN Order[facility] Address: [address] [place] [address] Performed By: #### 2 4321-2, 2776-09, #### [facility] CLIA [id number] [address] [place] [address] [place] Sodium [Moles/Vol] 130 mmol/L Low 136-144 [facility] Comment on above: Order Comment: Fatou nava Type: BLOOD SPECIMEN Order[facility] Address: [address] [place] [address] Performed By: #### 2 4321-2, 2776-09, #### [facility] CLIA [id number] [address] [place] [address] [place] Urea nitrogen [Mass/Vol] 28 mg/dL High 7-21 [facility] Comment on above: Order Comment: Fatou nava Type: BLOOD SPECIMEN Order[facility] Address: [address] [place] [address] Performed By: #### 2 4321-2, 2776-09, #### [facility] CLIA [id number] [address] [place] [address] [place] CBC W Auto Differential pane l (Bld)on 01-17-2024 Basophils (Bld) [#/Vol] 10*3/uL Normal <0.11 [facility] Comment on above: Order Comment: Speci men Type: BLOOD SPECIMEN Ordering [facility] Address: [address] [place] [address] Performed By: #### 2 4321-2, 2776-09, #### [facility] CLIA [id number] [address] [place] [address] [place] Basophils/100 WBC (Bld) 0.4 % Normal [facility] Comment on above: Order Comment: Speci men Type: BLOOD SPECIMEN Ordering [facility] Address: [address] [place] [address] Performed By: #### 2 4321-2, 2776-09, #### [facility] CLIA [id number] [address] [place] [address] [place] Differential cell count method Nom (Bld) Auto Normal [facility] Comment on above: Order Comment: Speci men Type: BLOOD SPECIMEN Ordering [facility] Address: [address] [place] [address] Performed By: #### 2 4321-2, 2776-09, #### [facility] CLIA [id number] [address] [place] [address] [place] Eosinophils (Bld) [#/Vol] 0.12 10*3/uL Normal <0.46 [facility] Comment on above: Order Comment: Speci men Type: BLOOD SPECIMEN Ordering [facility] Address: [address] [place] [address] Performed By: #### 2 4321-2, 2776-09, #### [facility] CLIA [id number] [address] [place] [address] [place] Eosinophils/100 WBC (Bld) 2.1 % Normal [facility] Comment on above: Order Comment: Speci men Type: BLOOD SPECIMEN Ordering [facility] Address: [address] [place] [address] Performed By: #### 2 4321-2, 2776-09, #### [facility] CLIA [id number] [address] [place] [address] [place] Erythrocyte distribution width (RBC) [Ratio] 12.8 % Normal 11.5-15.0 [facility] Comment on above: Order Comment: Speci men Type: BLOOD SPECIMEN Ordering [facility] Address: [address] [place] [address] Performed By: #### 2 4321-2, 2776-09, #### [facility] CLIA [id number] [address] [place] [address] [place] Hematocrit (Bld) [Volume fraction] 39.0 % Normal 36.0-46.0 [facility] Comment on above: Order Comment: Speci men Type: BLOOD SPECIMEN Ordering [facility] Address: [address] [place] [address] Performed By: #### 2 4321-2, 2776-09, #### [facility] CLIA [id number] [address] [place] [address] [place] Hemoglobin (Bld) [Mass/Vol] 13.6 g/dL Normal 11.5-15.5 [facility] Comment on above: Order Comment: Speci men Type: BLOOD SPECIMEN Ordering [facility] Address: [address] [place] [address] Performed By: #### 2 4321-2, 2776-09, #### [facility] CLIA [id number] [address] [place] [address] [place] Immature granulocytes (Bld) [#/Vol] 10*3/uL Normal <0.10 [facility] Comment on above: Order Comment: Speci men Type: BLOOD SPECIMEN Ordering [facility] Address: [address] [place] [address] Performed By: #### 2 4321-2, 2776-09, #### [facility] CLIA [id number] [address] [place] [address] [place] Immature granulocytes/100 WBC (Bld) 0.2 % Normal [facility] Comment on above: Order Comment: Speci men Type: BLOOD SPECIMEN Ordering [facility] Address: [address] [place] [address] Performed By: #### 2 4321-2, 2776-09, #### [facility] CLIA [id number] [address] [place] [address] [place] Lymphocytes (Bld) [#/Vol] 1.80 10*3/uL Normal 1.00-4.00 [facility] Comment on above: Order Comment: Speci men Type: BLOOD SPECIMEN Ordering [facility] Address: [address] [place] [address] Performed By: #### 2 4321-2, 2776-09, #### [facility] CLIA [id number] [address] [place] [address] [place] Lymphocytes/100 WBC (Bld) 31.6 % Normal [facility] Comment on above: Order Comment: Speci men Type: BLOOD SPECIMEN Ordering [facility] Address: [address] [place] [address] Performed By: #### 2 4321-2, 2776-09, #### [facility] CLIA [id number] [address] [place] [address] [place] MCH (RBC) [Entitic mass] 30.2 pg Normal 26.0-34.0 [facility] Comment on above: Order Comment: Speci men Type: BLOOD SPECIMEN Ordering [facility] Address: [address] [place] [address] Performed By: #### 2 4321-2, 2776-09, #### [facility] CLIA [id number] [address] [place], [place] [id number] [place] MCHC (RBC) [Mass/Vol] 34.9 g/dL Normal 30.5-36.0 [facility] Comment on above: Order Comment: Speci men Type: BLOOD SPECIMEN Ordering [facility] Address: [address] [place] [address] Performed By: #### 2 4321-2, 2776-09, #### [facility] CLIA [id number] [address] [place] [address] [place] MCV (RBC) [Entitic vol] 86.5 fL Normal 80.0-100.0 [facility] Comment on above: Order Comment: Speci men Type: BLOOD SPECIMEN Ordering [facility] Address: [address] [place] [address] Performed By: #### 2 4321-2, 2776-09, #### [facility] CLIA [id number] [address] [place] [address] [place] Monocytes (Bld) [#/Vol] 0.47 10*3/uL Normal <0.87 [facility] Comment on above: Order Comment: Speci men Type: BLOOD SPECIMEN Ordering [facility] Address: [address] [place] [address] Performed By: #### 2 432-2, 2776-09, #### [facility] CLIA [id number] [address] [place] [address] [place] Monocytes/100 WBC (Bld) 8.3 % Normal [facility] Comment on above: Order Comment: Speci men Type: BLOOD SPECIMEN Order[facility] Address: [address] [place] [address] Performed By: #### 2 4321-2, 2776-09, #### [facility] CLIA [id number] [address] [place], [place] [address] [place] Neutrophils (Bld) [#/Vol] 3.27 10*3/uL Normal 1.45-7.50 [facility] Comment on above: Order Comment: Speci men Type: BLOOD SPECIMEN Ordering [facility] Address: [address] [place] [address] Performed By: #### 2 4321-2, 2776-09, #### [facility] CLIA [id number] [address] [place], [place] [address] [place] Neutrophils/100 WBC (Bld) 57.4 % Normal [facility] Comment on above: Order Comment: Speci men Type: BLOOD SPECIMEN Ordering [facility] Address: [address] [place] [address] Performed By: #### 2 4321-2, 2776-09, #### [facility] CLIA [id number] [address] [place] [address] [place] Nucleated RBC (Bld) [#/Vol] 10*3/uL Normal <0.01 [facility] Comment on above: Order Comment: Speci men Type: BLOOD SPECIMEN Order[facility] Address: [address] [place] [address] Performed By: #### 2 4321-2, 2776-09, #### [facility] CLIA [id number] [address] [place] [address] [place] Nucleated RBC/100 WBC (Bld) [Ratio] 0.0 /100 WBC Normal [facility] Comment on above: Order Comment: Speci men Type: BLOOD SPECIMEN Order[facility] Address: [address] [place] [address] Performed By: #### 2 4321-2, 2776-09, #### [facility] CLIA [id number] [address] [place] [address] [place] Platelet mean volume (Bld) [Entitic vol] 10.8 fL Normal 9.0-12.7 [facility] Comment on above: Order Comment: Speci men Type: BLOOD SPECIMEN Order[facility] Address: [address] [place] [address] Performed By: #### 2 4321-2, 2776-09, #### [facility] CLIA [id number] [address] [place], [place] [address] [place] Platelets (Bld) [#/Vol] 234 10*3/uL Normal 150-400 [facility] Comment on above: Order Comment: Speci men Type: BLOOD SPECIMEN Order[facility] Address: [address] [place] [address] Result Comment: Resu lts checked and verified.No clot detected. Performed By: #### 2 4321-2, 2777-1, #### [facility] CLIA [id number] [address] [place] [id number] [place] RBC (Bld) [#/Vol] 4.51 10*6/uL Normal 3.90-5.20 [facility] Comment on above: Order Comment: Speci men Type: BLOOD SPECIMEN Order[facility] Address: [address] [place] [address] Performed By: #### 2 4321-2, 2777-1, #### [facility] CLIA [id number] [address] [place] [id number] [place] WBC (Bld) [#/Vol] 5.69 10*3/uL Normal 3.70-11.00 [facility] Comment on above: Order Comment: Speci men Type: BLOOD SPECIMEN Order[facility] Address: [address] [place] [address] Performed By: #### 2 4321-2, 2777-, #### [facility] CLIA [id number] [address] [place] [id number] [facility] CONSULTon 01-17-2024 CONSULT HNO ID: [id number] Author: MICHELINE CARSON MD Service: Colorectal Author Type: Resident Type: Consults Filed: 01/17/2024 20:28 Note Text: -- Attestation signed by Kaley Francois MD at 01/18/2024 9:42 PM I evaluated the patient and personally participated in the freed components. I agree with the resident's findings and plan as documented and have discussed the case and management of the patient's care with the resident. 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 PLAN: - Admit under observation to Colorectal Surgery - WOC consult - Regular diet - Resume imodium 2mg TID - Monitor ostomy output - RNF Discussed with staff Dr. 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 Postoperatively had high Ileostomy output requiring imodium. She was discharged home on 01/02 on imodium 2mg TID. She was seen in clinic on 01/17/2024. Per clinic notes, She has been struggling with ostomy care since she she was discharged home. Inpatient postop she was having difficulty maintaining a pouch even before discharge. She is unable to maintain an ostomy pouch for more than a couple hours. She has had several different home care nurses and has also been to a wound care clinic without any improvement in her symptoms. Over the past several weeks the peristomal skin breakdown, denuded weeping skin, and pain has worsened. Earlier this week she went to a wound clinic without a pouch on, the wound clinic was unable to help. She is unsure about all of the supplies that she has tried. The pouch that has been the most successful has been a convex Coloplast pouch with the entire external tape barrier cut away due to pain when it sits on her skin. Her effluent is thin and green/brown, she had been taking Imodium at discharge from the hospital but was told by another provider to stop taking it because it was making her output more loose and liquidy. She has not had Imodium for several days, she reports the output is always loose and watery, but she feels less than 1 L/day (1 L/day is what she measures, unclear if she is able to measure what leaks out). She denies fevers and chills, she denies new or worsening pain in her abdomen, she is eating denies dizziness and lightheadedness, states her urine is clear and yellow. Her only concern is her inability to maintain an ostomy pouch for more than a day. PAST MEDICAL HISTORY: PAST MEDICAL HISTORY Diagnosis Date Anemia High cholesterol HTN (hypertension) Hypothyroidism PAST SURGICAL HISTORY: PAST SURGICAL HISTORY Procedure Laterality Date ;TOTAL HYSTERECTMY TUBE(S) AND/OR OVARY BRONCHOSCOPY W/PLACEMENT TRACHEAL STENT COLONOSCOPY SCREENING LIPOMA (MEDIUM) FAMILY HISTORY: FAMILY HISTORY Problem Relation Age of Onset Stroke Mother COPD Father Heart Father Colon Cancer Brother SOCIAL HISTORY: Social History Tobacco Use Smoking status: Never Smokeless tobacco: Never Vaping Use Vaping Use: Never used Substance Use Topics Alcohol use: Yes Comment: 2 drinks a couple times a month Drug use: Never MEDICATIONS: Prior to Admission Medications: loperamide (IMODIUM) 2 mg cap(s)Take 1 capsule by mouth three times a day before meals.Disp: 90 capsuleRfl: 1 enoxaparin (LOVENOX) 40 mg/0.4 mLInject 0.4 mL subcutaneously once daily for 21 days.Disp: 8.4 mLRfl: 0 ondansetron (ZOFRAN) 4 mg tabletTake 1 tablet by mouth every 8 hours as needed for nausea/vomiting for up to 15 doses.Disp: 15 tabletRfl: 0 lactobacillus rhamnosus (CULTURELLE) 10 billion cell capsuleTake 1 capsule by mouth once daily.Di (more content not included)... [facility] ED NOTEon 01-17-2024 ED NOTE HNO ID: [id number] Author: CAROLE SALAZAR RN Service: ? Author Type: Registered Nurse Type: ED Notes Filed: 01/17/2024 18:57 Note Text: Bed: 32-ED Expected date: Expected time: Means of arrival: Comments: triage [facility] ED Triage Noteon 01-17-2024 ED Triage Note HNO ID: [id number] Author: CLARIBEL POWERS DO Service: Emergency Medicine Author Type: Physician Type: ED Triage Notes Filed: 01/17/2024 15:40 Note Text: ED TRIAGE PROVIDER NOTE Patient Name: Nancy Seu Service Date: 01/17/24 BRIEF HPI: This is a 63 year old female who presents to the ED with: had recent partial colectomy with ostomy placement. States that skin is irritated below the ostomy bag. Is sore. No abdominal pain. Has had some stool leaking onto the site. No nausea, vomiting, constipation or fever. BRIEF EXAM: NAD Awake and Alert Non labored breathing No focal neurological deficits Abdomen soft, non tender, skin irritated directly below the ostomy bag INITIAL WORKUP AND DECISION MAKING: Orders Placed This Encounter CBC + AUTO DIFF BASIC METABOLIC PANEL SIGNATURE: Claribel Powers DO Normal [facility] NURSING PROGon 01-17-2024 NURSING PROG HNO ID: [id number] Author: ANGEL KANG, MONET Service: ? Author Type: Registered Nurse Type: Nursing Progress Note Filed: 01/17/2024 22:13 Note Text: Transfer Note: PATIENT NAME: Nancy Sue [facility] Patient [facility] into room/unit PK[facility] from the ED in stable condition. Actions taken: No futher actions taken at this time. Will continue to monitor and check with patient. [facility] CBC W Auto Differential pane l (Bld)on 01-11-2024 Basophils (Bld) [#/Vol] 0.03 10*3/uL [facility] Basophils/100 WBC (Bld) 0.5 % [facility] Differential cell count method Nom (Bld) Auto [facility] Eosinophils (Bld) [#/Vol] 0.25 10*3/uL [facility] Eosinophils/100 WBC (Bld) 4.5 % [facility] Erythrocyte distribution width (RBC) [Ratio] 13.6 % 11.5 - 15.0 % [facility] Hematocrit (Bld) [Volume fraction] 34.5 % Low 36.0 - 46.0 % [facility] Hemoglobin (Bld) [Mass/Vol] 11.8 g/dL 11.5 - 15.5 g/dL [facility] Immature granulocytes (Bld) [#/Vol] [facility] Immature granulocytes/100 WBC (Bld) 0.4 % [facility] Interpretation and review of laboratory results Abnormal [facility] Lymphocytes (Bld) [#/Vol] 1.36 10*3/uL [facility] Lymphocytes/100 WBC (Bld) 24.2 % [facility] MCH (RBC) [Entitic mass] 30.4 pg 26.0 - 34.0 pg [facility] MCHC (RBC) [Mass/Vol] 34.2 g/dL 30.5 - 36.0 g/dL [facility] MCV (RBC) [Entitic vol] 88.9 fL 80.0 - 100.0 fL [facility] Monocytes (Bld) [#/Vol] 0.38 10*3/uL [facility] Monocytes/100 WBC (Bld) 6.8 % [facility] Neutrophils (Bld) [#/Vol] 3.57 10*3/uL [facility] Neutrophils/100 WBC (Bld) 63.6 % [facility] Nucleated RBC (Bld) [#/Vol] [facility] Nucleated RBC/100 WBC (Bld) [Ratio] 0.0 % /100 WBC [facility] Platelet mean volume (Bld) [Entitic vol] 10.3 fL 9.0 - 12.7 fL [facility] Platelets (Bld) [#/Vol] 205 10*3/uL [facility] RBC (Bld) [#/Vol] 3.88 10*6/uL Low 3.90 - 5.20 m/uL [facility] WBC (Bld) [#/Vol] 5.61 10*3/uL [facility] Comprehensive metabolic 2000 panelOrdered By: Yevgeniy Kuo on 01-11-2024 Albumin [Mass/Vol] 4.6 g/dL 3.9 - 4.9 g/dL [facility] ALP [Catalytic activity/Vol] 73 U/L 34 - 123 U/L [facility] ALT [Catalytic activity/Vol] 48 U/L High 7 - 38 U/L [facility] Anion gap [Moles/Vol] 12 mmol/L 9 - 18 mmol/L [facility] AST [Catalytic activity/Vol] 49 U/L High 13 - 35 U/L [facility] Bilirubin [Mass/Vol] 0.4 mg/dL 0.2 - 1 .3 mg/dL [facility] Calcium [Mass/Vol] 9.7 mg/dL 8.5 - 10. 2 mg/dL [facility] Chloride [Moles/Vol] 96 mmol/L Low 97 - 10 5 mmol/L [facility] CO2 [Moles/Vol] 24 mmol/L 22 - 30 mmol/L [facility] Creatinine [Mass/Vol] 1.00 mg/dL High 0.58 - 0.96 mg/dL [facility] GFR/1.73 sq M.predicted among non-blacks MDRD (S/P/Bld) [Vol rate/Area] 63 mL/min/{1.73_m2} - PINF [facility] Comment on above: Estimated Glomerular Filtration Rate (eGFR) is calculated using the 2020 CKD-EPI creatinine equation. This equation utilizes serum creatinine, sex, and age as parameters. The creatinine assay has traceable calibration to isotope dilution-mass spectrometry. Refer to KDIGO guidelines for clinical interpretation. In patients with unstable renal function, e.g. those with acute kidney injury, the eGFR may not accurately reflect actual GFR. Glucose [Mass/Vol] 125 mg/dL High 74 - 99 mg/dL [facility] Comment on above: The [place] [employer] (ADA) provides guidance for cutoff values [...] Standards of Medical Care in Diabetes 2016, [place] [employer]. Diabetes Care. 2016.39(Suppl 1). Interpretation and review of laboratory results Abnormal [facility] Potassium [Moles/Vol] 4.5 mmol/L 3.7 - 5.1 mmol/L [facility] Protein [Mass/Vol] 7.2 g/dL 6.3 - 8.0 g/dL [facility] Sodium [Moles/Vol] 132 mmol/L Low 136 - 144 mmol/L [facility] Urea nitrogen [Mass/Vol] 18 mg/dL 7 - 21 mg/dL [facility] CBC panel Auto (Bld)on 01-02 Erythrocyte distribution width (RBC) [Ratio] 14.1 % Normal 11.5-15.0 [facility] Comment on above: Order Comment: Fatou nava Type: BLOOD SPECIMEN Ordering Facility: [facility] Address: [address] [place] [address] Performed By: #### 2 4321-2, 2776-09, #### [facility] CLIA [id number] [address] [place] [address] [place] Hematocrit (Bld) [Volume fraction] 32.3 % Low 36.0-46.0 [facility] Comment on above: Order Comment: Venkati brandy Type: BLOOD SPECIMEN Ordering Facility: [facility] Address: [address] [place] [address] Performed By: #### 2 4321-2, 2777 #### [facility] CLIA [id number] [address] [place] [address] [place] Hemoglobin (Bld) [Mass/Vol] 10.9 g/dL Low 11.5-15.5 [facility] Comment on above: Order Comment: Venkati men Type: BLOOD SPECIMEN Ordering Facility: [facility] Address: [address] [place] [address] Performed By: #### 2 4321-2, 2776-09, #### [facility] CLIA [id number] [address] [place] [address] [place] MCH (RBC) [Entitic mass] 30.6 pg Normal 26.0-34.0 [facility] Comment on above: Order Comment: Speci men Type: BLOOD SPECIMEN Ordering Facility: [facility] Address: [address] [place] [address] Performed By: #### 2 4321-2, 2776-09, #### [facility] CLIA [id number] [address] [place] MCHC (RBC) [Mass/Vol] 33.7 g/dL Normal 30.5-36.0 [facility] Comment on above: Order Comment: Speci men Type: BLOOD SPECIMEN Ordering Facility: [facility] Address: [address] [place] [address] Performed By: #### 2 432-2, 2776-09, #### [facility] CLIA [id number] [address] [place] [address] [place] MCV (RBC) [Entitic vol] 90.7 fL Normal 80.0-100.0 [facility] Comment on above: Order Comment: Speci men Type: BLOOD SPECIMEN Ordering Facility: [facility] Address: [address] [place] [address] Performed By: #### 2 4321-2, 2776-09, #### [facility] CLIA [id number] [place] [address] [place] Nucleated RBC (Bld) [#/Vol] 10*3/uL Normal <0.01 [facility] Comment on above: Order Comment: Speci men Type: BLOOD SPECIMEN Ordering Facility[facility] Address: [address] [place] [address] Performed By: #### 2 4321-2, 2776-09, #### [facility] CLIA [id number] [address] [place], [place] [address] [place] Platelet mean volume (Bld) [Entitic vol] 10.8 fL Normal 9.0-12.7 [facility] Comment on above: Order Comment: Speci men Type: BLOOD SPECIMEN Ordering Facility: [facility] Address: [address] [place] [address] Performed By: #### 2 4321-2, 2777-1, #### [facility] CLIA [id number] [address] [place], [place] [address] [place] Platelets (Bld) [#/Vol] 152 10*3/uL Normal 150-400 [facility] Comment on above: Order Comment: Speci men Type: BLOOD SPECIMEN Ordering Facility[facility] Address: [address] [place] [address] Performed By: #### 2 4321-2, 27703-10, #### [facility] CLIA [id number] [address] [place] [address] [place] RBC (Bld) [#/Vol] 3.56 10*6/uL Low 3.90-5.20 [facility] Comment on above: Order Comment: Speci men Type: BLOOD SPECIMEN Ordering Facility[facility] Address: [address] [place] [address] Performed By: #### 2 4321-2, 2777, #### [facility] CLIA [id number] [address] [place], [place] [address] [place] WBC (Bld) [#/Vol] 4.59 10*3/uL Normal 3.70-11.00 [facility] Comment on above: Order Comment: Speci men Type: BLOOD SPECIMEN Ordering Facility: [facility] Address: [address] [place] [address] Performed By: #### 2 4321-2, 2777-1, #### [facility] CLIA [id number] [address] [place], [place] [address] [place] CNDSon 01-03-2024 CNDS HNO ID: [id number] Author: KALEY FRANCOIS MD Service: Colorectal Author Type: Nurse Practitioner Type: Discharge Summary Filed: 01/04/2024 20:09 Note Text: -- Attestation signed by Kaley Francois MD at 01/04/2024 8:09 PM I evaluated the patient and personally participated in the freed components. I agree with the BENITA's findings and plan as documented and have discussed the case and management of the patient's care with the team. Signature: Kaley Francois MD Service Date: 01/03/2024 -- DISCHARGE SUMMARY PATIENT NAME: Nancy Sue ADMISSION DATE: 12/28/2023 DISCHARGE DATE: 01/03/2024 ATTENDING PHYSICIAN: Kaley Francois MD Code Status: Not on file Highest Readmission Risk Score: 10 The 30 day readmissions risk score is derived from an internally validated risk model which evaluates patient level characteristics, utilization history, medication orders and lab results up until the day of discharge. Patients with a score of 40 or above are considered highest risk for readmission. Specific patient level drivers will be listed at the bottom of the summary. CONSULTING TEAMS DURING HOSPITALIZATION: None Treatment Team: Attending Provider: Kaley Francois MD REASON FOR HOSPITALIZATION: scheduled surgery DIAGNOSIS: Principal Problem: Colon cancer (HCC) (POA: Yes) Active Problems: Cancer of sigmoid (HCC) (POA: Yes) Ileostomy present (HCC) (POA: No) Postoperative pain (POA: Unknown) Resolved Problems: Encounter for ostomy care education (POA: No) Ileostomy bag changed ([facility]) (POA: No) OPERATIONS DURING HOSPITALIZATION: Laparoscopic converted to open low anterior resection, Splenic flexure mobilization, Diverting loop ileostomy, Flexible Sigmoidoscopy PROCEDURES DURING HOSPITALIZATION: No procedures performed HOSPITAL COURSE: Ms Milton segura a 63 year old female who was admitted for scheduled surgery - Laparoscopic converted to open low anterior resection, Splenic flexure mobilization, Diverting loop ileostomy, Flexible Sigmoidoscopy with Dr Francois. Post-op on th regular nursing floor. Pain well controlled. Labs and vitals stable. Diet advanced and tolerated, clear liquids and then GI soft once bowel function returned. Ileostomy functional with flatus and loose stools, high output. Replaced IV fluids, eventually started on imodium TID on 01/01 which brought the output down and was more thick. DVT ppx with lovenox during admission, discharged with 21 days of extended ppx. MIMI drain removed prior to DC. On 01/02 she was discharged home with follow up scheduled. Transitions of Care Critical Issues: Home with lovenox ppx LABS AND PROCEDURES PENDING AT DISCHARGE: Pathology Results (surgical) PATIENT CONDITION AT DISCHARGE: Stable DISCHARGE DISPOSITION: Home with Home Health Discharge Physical Exam: VITAL SIGNS: BP 127/70 Pulse 77 Temp 36.6 ?C (97.9 ?F) (Oral) Resp 17 Ht 164.3 cm (5' 4.69 ) Wt 100.7 kg (222 lb) SpO2 96% BMI 37.30 kg/m? INFORMATION PROVIDED TO PATIENT: discharge instructions ALLERGIES Allergen Reactions Bswqvmh-Pdj-Kfe Red* Other: See Comments, Unknown, Myalgia myalgias DISCHARGE MEDICATION: Medication List START taking these medications acetaminophen 500 mg tablet Commonly known as: TYLENOL EXTRA STRENGTH Take 2 tablets by mouth every 6 hours as needed for pain. enoxaparin 40 mg/0.4 mL Commonly known as: LOVENOX Inject 0.4 mL subcutaneously once daily for 21 days. ibuprofen 200 mg tablet Commonly known as: MOTRIN Take 2 tablets by mouth every 6 hours. lactobacillus rhamnosus 10 billion cell capsule Commonly known as: CULTURELLE Take 1 capsule by mouth once daily. loperamide 2 mg cap(s) Commonly known as: IMODIUM Take 1 capsule by mouth three times a day before meals. oxyCODONE IR 5 mg immediate release tablet Commonly known as: ROXICODONE Take 1 tablet by mouth every 6 hours as needed for pain for up to 25 doses. CHANGE how you take these medications * ondansetron 8 mg tablet Commonly known as: ZOFRAN Take 1 tablet by mouth every 8 hours as needed for nausea/vomiting. What changed: Another medication with the same name was added. Make sure you understand how and when to take each. * ondansetron 4 mg tablet Commonly known as: ZOFRAN Take 1 tablet by mouth every 8 hours as needed for nausea/vomiting for up to 15 doses. What changed: You were already taking a medication with the same name, and this prescription was added. Make sure you understand how and when to take each. * This list has 2 medication(s) that are the same as other medications prescribed for you. Read the directions carefully, and ask your doctor or other care provider to review them with you. CONTINUE taking these medications collagen, hydr (bovine) (b (more content not included)... Normal [facility] CONSULTon 01-03-2024 CONSULT HNO ID: [id number] Author: GAYATHRI LOVE RN Service: ? Author Type: Registered Nurse Type: Consults Filed: 01/03/2024 10:31 Note Text: STOMA CARE POST-OPERATIVE ASSESSMENT AND PATIENT EDUCATION Patient Name: Nancy Sue Date: January 03, 2024 Time: 10:21 AM ET Care Outcome: Consulted for leaking pouch, continued education with patient on ostomy care. ET's Next Scheduled Visit: Complete STOMA ASSESSMENT Stoma type: Loop ileostomy Diameter: 30 mm Location: RLQ Protrusion: Budded Mucosal condition and color: Red and moist. Franklyn: No Mucocutaneous Junction: Intact Output: Yes: Effluent Peristomal Skin: Clear and intact Location of Skin Impairment: NA Treatment of Skin Impairment: NA Supportive Tissue: Semisoft Pouching System: Providence 2 piece convex red - Adapt Cera thicker moldable ring folded in half and placed from 2 to 10 o'clock, stoma paste applied to ring of flange Time Increment: 30 minutes Comments: NA Supplies Given: Yes: 5 Providence 1-piece Convex pouching system provided to patient, with Adapt Cera ring and stoma paste, stoma belt also provided. PATIENT EDUCATION Skin Care Topic: Prevention READINESS TO LEARN Cognitive Ability: Alert and oriented Motivation to Learn: Interested Family Support: Unable to assess - Family not present Instruction Provided To: Patient Patient Learns Best By: Individual Instruction Demonstration Multiple Methods Factors Affecting Learning: None Physical Limitations Affecting Learning: None LEARNING RESPONSE Diagnosis- Skin Impairment: High Risk Method of Instruction: Verbal instruction Demonstration-Hands on Learning Instructional Aids Used: Hand-out(s) Patient/Family Response: Performs skill independently: patient able to remove pouch and understands how to clean and measure stoma. Patient stated she will change pouch in mornings prior to eating. Patient verbally understands how to change pouch and has been watching videos on pouch changes. FOLLOW-UP PLAN: Complete Supplemental Material Provided to Patient: Provided prior visit Referral Recommendation: Home Health Agency Signature: Gayathri Love RN, MSN, CWOCN This is an electronically created document. IF PRINTED, PLEASE DO NOT REMOVE FROM THE CHART OR MODIFY PRINTED COPY. Normal [facility] Basic metabolic 2000 panelon 01-02-2024 Anion gap [Moles/Vol] 13 mmol/L Normal 9-18 [facility] Comment on above: Order Comment: Speci men Type: BLOOD SPECIMEN Ordering Facility[facility] Address: [address] [place] [address] Performed By: #### 2 4321-2, , 2776-09 #### [facility] CLIA [id number] [address] [place] [address] [place] Calcium [Mass/Vol] 9.1 mg/dL Normal 8.5-10.2 [facility] Comment on above: Order Comment: Speci men Type: BLOOD SPECIMEN Ordering Facility[facility] Address: [address] [place] [id number] Performed By: #### 2 4321-2, , 2776-09 #### [facility] CLIA [id number] [address] [place] [id number] [place] Chloride [Moles/Vol] 102 mmol/L Normal 97-105 [facility] Comment on above: Order Comment: Speci men Type: BLOOD SPECIMEN Ordering Facility[facility] Address: [address] [place] [address] Performed By: #### 2 4321-2, 05383-62776-09 #### [facility] CLIA [id number] [address] [place] [address] [place] CO2 [Moles/Vol] 27 mmol/L Normal 22-30 [facility] Comment on above: Order Comment: Fatou nava Type: BLOOD SPECIMEN Order[facility] Facility[facility] Address: [address] [place] [address] Performed By: #### 2 4321-2, , 2776-09 #### [facility] CLIA [id number] [address] [place] [address] [place] Creatinine [Mass/Vol] 0.79 mg/dL Normal 0.58-0.96 [facility] Comment on above: Order Comment: Fatou nava Type: BLOOD SPECIMEN Ordering Facility[facility] Address: [address] [place] [address] Performed By: #### 2 432-2, , 2776-09 #### [facility] CLIA [id number] [address] [place] [address] [place] Creatinine and Glomerular filtration rate.predicted panel (S/P/Bld) 84 mL/min/1.73m??? Normal >=60 [facility] Comment on above: Order Comment: Fatou nava Type: BLOOD SPECIMEN Order[facility] Facility[facility] Address: [address] [place] [address] Result Comment: Kelsey mated Glomerular Filtration Rate [...] reflect actual GFR. Performed By: #### 2 4321-2, , 2776-09 #### [facility] CLIA [id number] [place] [address] [place] Glucose [Mass/Vol] 110 mg/dL High 74-99 [facility] Comment on above: Order Comment: Fatou nava Type: BLOOD SPECIMEN Order[facility] Facility[facility] Address: [address] [place] [address] Result Comment: The [place] [employer] (ADA) provides guidance for cutoff [...] Standards of Medical Care in Diabetes 2016, [place] [employer]. Diabetes Care. 2016.39(Suppl 1). Performed By: #### 2 4321-2, , 2776-09 #### [facility] CLIA [id number] [address] [place] [address] [place] Potassium [Moles/Vol] 4.1 mmol/L Normal 3.7-5.1 [facility] Comment on above: Order Comment: Speci men Type: BLOOD SPECIMEN Order[facility] Facility[facility] Address: [address] [place] [address] Performed By: #### 2 4321-2, , 2776-09 #### [facility] CLIA [id number] [address] [place] [address] [place] Sodium [Moles/Vol] 142 mmol/L Normal 136-144 [facility] Comment on above: Order Comment: Speci men Type: BLOOD SPECIMEN Order[facility] Address: [address] [place] [address] Performed By: #### 2 4321-2, , 2776-09 #### [facility] CLIA [id number] [address] [place] [address] [place] Urea nitrogen [Mass/Vol] 10 mg/dL Normal 7-21 [facility] Comment on above: Order Comment: Speci men Type: BLOOD SPECIMEN Order[facility] Address: [address] [place] [address] Performed By: #### 2 4321-2, , 2776-09 #### [facility] CLIA [id number] [address] [place] [id number] [place] CASE MANAGEMon 01-02-2024 CASE MANAGEM HNO ID: [id number] Author: JULIETTE CADET LSW Service: ? Author Type: Rack Worker Type: Care Mgt Progress Note Filed: 01/02/2024 15:29 Note Text: CARE MANAGEMENT PROGRESS NOTE SERVICE DATE: 01/02/2024 SERVICE TIME: 3:30 LOS: 5 days [facility] is still trying to get approval from patients [facility] plan for home nursing SIGNATURE: KELY Choi PATIENT NAME: Nancy Sue DATE: January 02, 2024 TIME: 3:29 PM PAGER/CONTACT #: [phone] [facility] CONSULTon 01-02-2024 CONSULT HNO ID: [id number] Author: GAYATHRI LOVE RN Service: ? Author Type: Registered Nurse Type: Consults Filed: 01/02/2024 15:22 Note Text: ANCILLARY OSTOMY CARE PROGRESS NOTE SERVICE DATE: 01/02/2024 SERVICE TIME: 1115 am Coloplast 1 piece flat pouching system intact, patient asked about Harsha product to compare. Ostomy - Harsha 1-piece flat pouching system provided to patient. Signed patient up for [facility] [employer]: SIGNATURE: Gayathri Love RN, MSN, CWOCN PATIENT NAME: Nancy Sue DATE: January 02, 2024 TIME: 3:19 PM [facility] Magnesium SerPl-mCncon 01-01 Magnesium [Mass/Vol] 1.9 mg/dL Normal 1.7-2.3 [facility] Comment on above: Order Comment: Speci men Type: BLOOD SPECIMEN Order[facility] Address: [address] [place] [address] Performed By: #### 2 4321-2, , 2776-09 #### [facility] CLIA [id number] [address] [place] [id number] [place] Phosphate SerPl-mCncon 01-01 Phosphate [Mass/Vol] 4.0 mg/dL Normal 2.7-4.8 [facility] Comment on above: Order Comment: Speci men Type: BLOOD SPECIMEN Order[facility] Address: [address] [place] [address] Performed By: #### 2 4321-2, 31871-1, 2776-09 #### [facility] CLIA [id number] [address] [place] [address] [place] Basic metabolic 2000 panelon 01-01-2024 Anion gap [Moles/Vol] 12 mmol/L Normal 9-18 [facility] Comment on above: Order Comment: Speci men Type: BLOOD SPECIMEN [facility] Address: [address] [place] [address] Performed By: #### 2 4321-2, 2776-09, #### [facility] CLIA [id number] [address] [place] [address] [place] Calcium [Mass/Vol] 9.1 mg/dL Normal 8.5-10.2 [facility] Comment on above: Order Comment: Speci men Type: BLOOD SPECIMEN Order[facility] Address: [address] [place] [address] Performed By: #### 2 4321-2, 2776-09, #### [facility] CLIA [id number] [address] [place] [address] [place] Chloride [Moles/Vol] 103 mmol/L Normal 97-105 [facility] Comment on above: Order Comment: Speci men Type: BLOOD SPECIMEN Order[facility] Address: [address] [place] [address] Performed By: #### 2 4321-2, 2776-09, #### [facility] CLIA [id number] [address] [place], [place] [address] [place] CO2 [Moles/Vol] 26 mmol/L Normal 22-30 [facility] Comment on above: Order Comment: Speci men Type: BLOOD SPECIMEN [facility] Address: [address] [place] [id number] Performed By: #### 2 4321-2, 2777-, #### [facility] CLIA [id number] [address] [place] [id number] [place] Creatinine [Mass/Vol] 0.79 mg/dL Normal 0.58-0.96 [facility] Comment on above: Order Comment: Fatou men Type: BLOOD SPECIMEN [facility] Address: [address] [place] [address] Performed By: #### 2 4321-2, 2777, #### [facility] CLIA [id number] [address] [place] [address] [place] Creatinine and Glomerular filtration rate.predicted panel (S/P/Bld) 84 mL/min/1.73m??? Normal >=60 [facility] Comment on above: Order Comment: Fatou nava Type: BLOOD SPECIMEN Order[facility] Address: [address] [place] [address] Result Comment: Kelsey mated Glomerular Filtration Rate [...] reflect actual GFR. Performed By: #### 2 4321-2, 2777, #### [facility] CLIA [id number] [address] [place] [address] [place] Glucose [Mass/Vol] 103 mg/dL High 74-99 [facility] Comment on above: Order Comment: Fatou nava Type: BLOOD SPECIMEN Order[facility] Address: [address] [place] [address] Result Comment: The [place] Diabetes [employer] (ADA) provides guidance for cutoff [...] Standards of Medical Care in Diabetes 2016, [place] [employer]. Diabetes Care. 2016.39(Suppl 1). Performed By: #### 2 4321-2, 2776-09, #### [facility] CLIA [id number] [place] [address] [place] Potassium [Moles/Vol] 4.1 mmol/L Normal 3.7-5.1 [facility] Comment on above: Order Comment: Fatou nava Type: BLOOD SPECIMEN Order[facility] Address: [address] [place] [address] Performed By: #### 2 4321-2, 2776-09, #### [facility] CLIA [id number] [address] [place] [address] [place] Sodium [Moles/Vol] 141 mmol/L Normal 136-144 [facility] Comment on above: Order Comment: Fatou nava Type: BLOOD SPECIMEN [facility] Address: [address] [place] [address] Performed By: #### 2 4321-2, 2776-09, #### [facility] CLIA [id number] [address] [place] [address] [place] Urea nitrogen [Mass/Vol] 12 mg/dL Normal 7-21 [facility] Comment on above: Order Comment: Fatou nava Type: BLOOD SPECIMEN Order[facility] Address: [address] [place] [address] Performed By: #### 2 4321-2, 2776-09, #### [facility] CLIA [id number] [place] [address] [place] CASE MANAGEMon 01-01-2024 CASE MANAGEM HNO ID: [id number] Author: JULIETTE CADET LSW Service: ? Author Type: Rack Worker Type: Care Mgt Progress Note Filed: 01/01/2024 16:13 Note Text: CARE MANAGEMENT PROGRESS NOTE SERVICE DATE: 01/01/2024 SERVICE TIME: 2:00 LOS: 4 days Home health agencies are responding that when they call to verify patients insurance they are being told patient is not covered. SW had patient call her insurance to try to rectify any issues and will try again to have the home cares verify benefits. There were 2 interested agencies, [facility], [place] and [facility] Patient might not have home care when discharged. SIGNATURE: KELY Choi PATIENT NAME: Nancy Sue DATE: January 01, 2024 TIME: 4:11 PM PAGER/CONTACT #: [phone] [facility] CONSULTon 01-01-2024 CONSULT HNO ID: [id number] Author: SONY HUTCHINS RN Service: ? Author Type: Registered Nurse Type: Consults Filed: 01/01/2024 12:30 Note Text: [facility] [address] [place] [address] Dept: [phone] OSTOMY SUPPLY ORDER FORM Patient: Nancy Sue Patient Address: [address] [place] [address] Home Phone Number:[email or web address] Gender: female Date of : 1960 Type of Stoma: Item and Description Qty 30 Day Use Adhesive Removers: Harsha Adapt wipes #7760 30 day use - 2 Boxes Moldable Ring: Coloplast Brava 4.2mm Moldable # [id number] 30 day use - 2 Boxes One Piece Ostomy Pouch Item Type: Coloplast Sensura Flat Drainable: Coloplast SenSura Flat Drainable pouch # [id number] 30 day use - 2 Boxes Powder: Harsha Adapt # 7906 30 day use - 2 Boxes Refills: 6 Attending Physician: Dr. Francois For immediate authorization, please contact the physician?s office. SIGNATURE: Sony Hutchins RN PATIENT NAME: Nancy Sue DATE: January 01, 2024 TIME: 12:29 PM CONTACT #: [phone] [facility] CONSULT HNO ID: [id number] Author: SONY HUTCHINS RN Service: ? Author Type: Registered Nurse Type: Consults Filed: 01/01/2024 12:29 Note Text: STOMA CARE POST-OPERATIVE ASSESSMENT AND PATIENT EDUCATION Patient Name: Nancy Sue Date: January 01, 2024 Time: 12:25 PM ET Care Outcome: ostomy education, pouch change hands on ET's Next Scheduled Visit: Complete STOMA ASSESSMENT Stoma type: Loop ileostomy Diameter: 30 mm Location: RLQ Protrusion: Budded but there is a deep crease from 3 to 9 o clock Mucosal condition and color: Red and moist. Franklyn: No Mucocutaneous Junction: Intact Output: Yes: Flatus and Effluent Peristomal Skin: Clear and intact Location of Skin Impairment: NA Treatment of Skin Impairment: NA Supportive Tissue: Semisoft Pouching System: Coloplast Sensura one piece cut to fit drainable pouch (#23734) with a full moldable ring around the stoma and then a second moldable ring folded in half and placed from 3 to 9 o clock Time Increment: 1 hour Comments: NA Supplies Given: Yes: 5 pouches and accessories PATIENT EDUCATION Skin Care Topic: Prevention Observations READINESS TO LEARN Cognitive Ability: Alert and oriented Motivation to Learn: Eager Interested Family Support: High - Very involved in pt care Instruction Provided To: Patient and Spouse Patient Learns Best By: Multiple Methods Factors Affecting Learning: None Physical Limitations Affecting Learning: None LEARNING RESPONSE Diagnosis- Skin Impairment: NA Method of Instruction: Demonstration-Hands on Learning Instructional Aids Used: Hand-out(s) Patient/Family Response: Verbalizes understanding of: ostomy care but will need reinforcement from home health care nursing FOLLOW-UP PLAN: Complete Supplemental Material Provided to Patient: Patient Education print outs: Referral Recommendation: Home Health Agency Signature: Sony Hutchins RN This is an electronically created document. IF PRINTED, PLEASE DO NOT REMOVE FROM THE CHART OR MODIFY PRINTED COPY. Normal [facility] Magnesium SerPl-mCncon 12-31 Magnesium [Mass/Vol] 1.8 mg/dL Normal 1.7-2.3 [facility] Comment on above: Order Comment: Speci men Type: BLOOD SPECIMEN [facility]ing Facility[facility] Address: [address] [place] [address] Performed By: #### 2 4321-2, 2777-1, #### [facility] CLIA [id number] [place] [address] [place] Phosphate SerPl-mCncon 12-31 Phosphate [Mass/Vol] 3.5 mg/dL Normal 2.7-4.8 [facility] Comment on above: Order Comment: Speci men Type: BLOOD SPECIMEN Ordering Facility: [facility] Address: [facility] [place] [address] Performed By: #### 2 4321-2, 2777-1, #### [facility] CLIA [id number] [place] [address] [place] CONSULTon 12-31-2023 CONSULT HNO ID: [id number] Author: GAYATHRI LOVE RN Service: ? Author Type: Registered Nurse Type: Consults Filed: 12/31/2023 10:47 Note Text: STOMA CARE POST-OPERATIVE ASSESSMENT AND PATIENT EDUCATION Patient Name: Nancy Sue Date: December 31, 2023 Time: 10:38 AM ET Care Outcome: Ostomy education and assessment, how to empty, education on diet/hydration, hygiene, reviewed how to measure stoma, cut flange and change the pouch ET's Next Scheduled Visit: 01/01/2024 11:30am reassess and reinforce, patient teaching with . STOMA ASSESSMENT Stoma type: Loop ileostomy Diameter: 30 mm Location: RUQ Protrusion: Budded Mucosal condition and color: Red and moist. Franklyn: Yes : franklyn removed today Mucocutaneous Junction: Intact Output: Yes: Effluent Peristomal Skin: Clear and intact Location of Skin Impairment: NA Treatment of Skin Impairment: NA Supportive Tissue: Semisoft Pouching System: Coloplast Sensura one piece cut to fit drainable pouch (#23630) used Brava Ring folded in half to deep crease from 3-9 o'clock and one full ring to bag of flange with a drainable pouch. Time Increment: 45 minutes Comments: NA Supplies Given: No PATIENT EDUCATION Skin Care Topic: Prevention READINESS TO LEARN Cognitive Ability: Alert and oriented Motivation to Learn: Interested Family Support: Unable to assess - Family not present - patients will be available for teaching tomorrow Instruction Provided To: Patient Patient Learns Best By: Individual Instruction Verbal Instruction Demonstration Multiple Methods Factors Affecting Learning: None Physical Limitations Affecting Learning: None LEARNING RESPONSE Diagnosis- Skin Impairment: High Risk Method of Instruction: Individual instruction Verbal instruction Demonstration-Hands on Learning Instructional Aids Used: NA Patient/Family Response: Verbalizes understanding of: emptying pouch, cleaning around stoma and measuring stoma. Patient with difficulty applying the pouch because patient was in the seated position. FOLLOW-UP PLAN: Reassess Reinforce Supplemental Material Provided to Patient: Ostomy skills kit in the patients room with patient education folder Referral Recommendation: Home Health Agency Signature: Gayathri Love, RN, MSN, CWOCN This is an electronically created document. IF PRINTED, PLEASE DO NOT REMOVE FROM THE CHART OR MODIFY PRINTED COPY. [facility] NURSING PROGon 12-31-2023 NURSING PROG HNO ID: [id number] Author: KYRIE FUNK, RN Service: Nursing Author Type: Registered Nurse Type: Nursing Progress Note Filed: 12/31/2023 20:39 Note Text: Daily Note: 2017- pt resting in bed. Alert and oriented x3. Rates pain 0/10 while at rest. Denies CP, SOB, N/V, N/T. Abdomen tender, +BS, +flatus from stoma and +brown watery stool. Voiding freely. Tolerating CLD. IVF maintained. Independent with I.S. IPC on. Bed alarm on and functioning. Denies other needs at this time, safety maintained. Normal [facility] NURSING PROG HNO ID: [id number] Author: LATOYA CROWDER, MONET Service: Nursing Author Type: Registered Nurse Type: Nursing Progress Note Filed: 12/31/2023 19:04 Note Text: Pleasant and cooperative with care. Pt. AOX3, c/o 4-5 pain in the abdomen, only taking tylenol at this time does not want oxy unless pain in intolerable. PAS on while in bed. Up standby with walker, voiding adequate amounts of yellow urine, Ostomy putting out liquid brown stool, MIMI putting out bloody. Slightly nauseous this shift medicated per MAR. No needs at this time. Call light in reach. Normal [facility] OPERATIVE NOon 12-31-2023 OPERATIVE NO HNO ID: [id number] Author: ANA MENEZES MD Service: General Surgery Author Type: Physician Type: Operative Report Filed: 01/01/2024 10:46 Note Text: [facility] - Operative Report NANCY SUE : 1960 AGE: 63. SEX: F PATIENT TYPE: I HOSP SVC: Surgical LOCATION: [facility] ATTENDING PHYSICIAN: KALEY FRANCOIS CSN NUMBER: [id number] DATE OF SURGERY/PROCEDURE: 12/28/2023 INCISION/PROCEDURE START TIME: 4:18 PM INCISION CLOSE/PROCEDURE END TIME: 10:56 PM PREOPERATIVE DIAGNOSIS: Lymphadenopathy. POSTOPERATIVE DIAGNOSIS: Cirrhosis and lymphadenopathy. SURGEON: Ana Menezes MD LEAF STRIPPER: Amy Pascual MD. SURGERY/PROCEDURE: 1. Diagnostic laparoscopy. 2. Laparoscopic incisional biopsy of hepatic artery lymph node. ANESTHESIA: General endotracheal anesthesia. COMPLICATIONS: None. ESTIMATED BLOOD LOSS: 100 mL. SPECIMENS: Lymph node and frozen section. WOUND CLASS: 1. INDICATIONS: Patient is a pleasant 63-year-old female, who is currently on the operating room table for sigmoid colectomy. She did have lymph nodes that were enlarged in the celiac region and had been classified as an M1 disease. Today during her sigmoid colectomy, the plan is for a biopsy of these lymph nodes and intraoperative frozen section. OPERATIVE FINDINGS: 1. Patient was noted to have a cirrhotic liver morphology. 2. An enlarged hepatic artery lymph node was incised and a generous section was taken down for frozen section, which revealed a normal benign-appearing lymph node. DESCRIPTION OF PROCEDURE: The patient was identified and brought to the operating room, placed supine on the operating table. General anesthesia was induced. The abdomen was prepped and draped in sterile surgical fashion. A stab incision was made in the left upper quadrant and Veress needle was used to obtain pneumoperitoneum. Under direct vision, a 12 mm port was placed in the supraumbilical region and 3 additional 5 mm ports were placed. The pars flaccida was opened up. The hepatic artery lymph node was visualized. It was elevated using the L-hook and a generous piece of it was transected. This was taken down to Pathology and frozen section revealed it to be benign. Her liver was noted to be cirrhotic, which appeared to be a reasonable explanation for her lymphadenopathy. The operative bed was inspected. It was sprayed with Hemoblast. There was no evidence of any bleeding. After the application, at this point I passed off the case to Dr. Francois, who did the rest of the operation. Please see her operative note for details regarding the same. Ana Menezes MD TA:[id number] /[id number] Normal [facility] PT EDon 12-31-2023 PT ED HNO ID: [id number] Author: PRAVIN MARR RD Service: NST-Nutrition Support Team Author Type: Registered Dietitian Type: Patient Education Filed: 12/31/2023 12:02 Note Text: NUTRITION THERAPY PATIENT EDUCATION SERVICE DATE: 12/31/2023 SERVICE TIME: 12:02 PM TOPIC: Diet: GI Soft /Ostomy LEARNING ASSESSMENT Individuals Assessed: Patient and Family Preferred Learning Method: Verbal Instruction and Written Instruction Barriers to Learning: None Evident LEARNING RESPONSE Instruction Provided to: Patient and Family member Patient / Family Response: Performs Independently and Verbalizes Understanding Method of Instruction: Written instruction - handouts Verbal instruction Material(s) Provided to Patient: G/L for GI Soft Diet and Education Materials Provided Nutrition Education CCHS: Guidelines for Gastrointestinal Soft Diet Follow-Up Plan: Follow-up with Primary Care Referral (Recommendation): Primary Care Provider MNT Billing: $ Initial Assessment: 1-15 minutes SIGNATURE: Pravin Marr RD PATIENT NAME: Nancy Seu DATE: December 31, 2023 TIME: 12:02 PM PAGER: Normal [facility] Basic metabolic 2000 panelon 12-30-2023 Anion gap [Moles/Vol] 9 mmol/L Normal 9-18 [facility] Comment on above: Order Comment: Speci men Type: BLOOD SPECIMEN [facility] Address: [address] [place] [address] Performed By: #### 2 4321-2 #### [facility] CLIA [id number] [place] [address] [place] Calcium [Mass/Vol] 8.5 mg/dL Normal 8.5-10.2 [facility] Comment on above: Order Comment: Speci men Type: BLOOD SPECIMEN Ordering Facility[facility] Address: [address] [place] [address] Performed By: #### 2 4321-2 #### [facility] CLIA [id number] [address] [place] [address] [place] Chloride [Moles/Vol] 107 mmol/L High 97-105 [facility] Comment on above: Order Comment: Speci men Type: BLOOD SPECIMEN [facility] Address: [address] [place] [address] Performed By: #### 2 4321-2 #### [facility] CLIA [id number] [address] [place] [address] [place] CO2 [Moles/Vol] 24 mmol/L Normal 22-30 [facility] Comment on above: Order Comment: Speci men Type: BLOOD SPECIMEN [facility] Address: [address] [place] [address] Performed By: #### 2 4321-2 #### [facility] CLIA [id number] [address] [place] [address] [place] Creatinine [Mass/Vol] 0.93 mg/dL Normal 0.58-0.96 [facility] Comment on above: Order Comment: Speci men Type: BLOOD SPECIMEN [facility] Address: [address] [place] [address] Performed By: #### 2 4321-2 #### [facility] CLIA [id number] [address] [place] [address] [place] Creatinine and Glomerular filtration rate.predicted panel (S/P/Bld) 69 mL/min/1.73m??? Normal >=60 [facility] Comment on above: Order Comment: Speci men Type: BLOOD SPECIMEN [facility] Address: [address] [place] [address] Result Comment: Kelsey mated Glomerular Filtration Rate [...] reflect actual GFR. Performed By: #### 2 4321-2 #### [facility] CLIA [id number] [address] [place] [address] [place] Glucose [Mass/Vol] 99 mg/dL Normal 74-99 [facility] Comment on above: Order Comment: Fatou nava Type: BLOOD SPECIMEN [facility] Address: [address] [place] [address] Result Comment: The [place] [employer] (ADA) provides guidance for cutoff [...] Standards of Medical Care in Diabetes 2016, [place] [employer]. Diabetes Care. 2016.39(Suppl 1). Performed By: #### 2 4321-2 #### [facility] CLIA [id number] [address] [place] [address] [place] Potassium [Moles/Vol] 4.7 mmol/L Normal 3.7-5.1 [facility] Comment on above: Order Comment: Fatou nava Type: BLOOD SPECIMEN [facility] Address: [address] [place] [address] Performed By: #### 2 4321-2 #### [facility] CLIA [id number] [address] [place] [address] [place] Sodium [Moles/Vol] 140 mmol/L Normal 136-144 [facility] Comment on above: Order Comment: Fatou nava Type: BLOOD SPECIMEN [facility] Address: [address] [place] [address] Performed By: #### 2 4321-2 #### [facility] CLIA [id number] [place] [address] [place] Urea nitrogen [Mass/Vol] 16 mg/dL Normal 03-30 [facility] Comment on above: Order Comment: Speci men Type: BLOOD SPECIMEN [facility] Address: [address] [place] [address] Performed By: #### 2 4321-2 #### [facility] CLIA [id number] [place] [address] [place] CBC W Auto Differential pane l (Bld)on 12-30-2023 Basophils (Bld) [#/Vol] 10*3/uL Normal <0.11 [facility] Comment on above: Order Comment: Speci men Type: BLOOD SPECIMENOrdering Facility: [facility] Address: [address] [place] [address] Performed By: #### 5 7021-8 ####[facility] [id number] [place] [address] [place] Basophils/100 WBC (Bld) 0.4 % Normal [facility] Comment on above: Order Comment: Speci men Type: BLOOD SPECIMENOrdering Facility: [facility] Address: [address] [place] [address] Performed By: #### 5 7021-8 ####[facility] [id number] [place] [address] [place] Differential cell count method Nom (Bld) Auto Normal [facility] Comment on above: Order Comment: Speci men Type: BLOOD SPECIMENOrdering Facility: [facility] Address: [address] [place] [address] Performed By: #### 5 7021-8 ####[facility]IA [id number] [place] [id number] [place] Eosinophils (Bld) [#/Vol] 0.04 10*3/uL Normal <0.46 [facility] Comment on above: Order Comment: Speci men Type: BLOOD SPECIMENOrdering Facility: [facility] Address: [address] [place] [address] Performed By: #### 5 7021-8 ####[facility] [id number] [place] [address] [place] Eosinophils/100 WBC (Bld) 0.8 % Normal [facility] Comment on above: Order Comment: Speci men Type: BLOOD SPECIMENOrdering Facility: [facility] Address: [address] [place] [address] Performed By: #### 5 7021-8 ####[facility] [id number] [address] [place] Erythrocyte distribution width (RBC) [Ratio] 14.7 % Normal 11.5-15.0 [facility] Comment on above: Order Comment: Speci men Type: BLOOD SPECIMENOrdering Facility: [facility] Address: [address] [place] [address] Performed By: #### 5 7021-8 ####[facility] [id number] [place] [address] [place] Hematocrit (Bld) [Volume fraction] 28.2 % Low 36.0-46.0 [facility] Comment on above: Order Comment: Speci men Type: BLOOD SPECIMENOrdering Facility: [facility] Address: [address] [place] [address] Performed By: #### 5 7021-8 ####[facility] [id number] [place] [address] [place] Hemoglobin (Bld) [Mass/Vol] 9.2 g/dL Low 11.5-15.5 [facility] Comment on above: Order Comment: Speci men Type: BLOOD SPECIMENOrdering Facility: [facility] Address: [address] [place] [address] Performed By: #### 5 7021-8 ####[facility] [id number] [address] Immature granulocytes (Bld) [#/Vol] 10*3/uL Normal <0.10 [facility] Comment on above: Order Comment: Speci men Type: BLOOD SPECIMENOrdering Facility: [facility] Address: [address] [place] [address] Performed By: #### 5 7021-8 ####[facility] [id number] [place] [id number] [place] Immature granulocytes/100 WBC (Bld) 0.4 % Normal [facility] Comment on above: Order Comment: Speci men Type: BLOOD SPECIMENOrdering Facility: [facility] Address: [address] [place] [address] Performed By: #### 5 7021-8 ####[facility]IA [id number] [place] [address] [place] Lymphocytes (Bld) [#/Vol] 1.51 10*3/uL Normal 1.00-4.00 [facility] Comment on above: Order Comment: Speci men Type: BLOOD SPECIMENOrdering Facility: [facility] Address: [address] [place] [address] Performed By: #### 5 7021-8 ####[facility]ORYCLIA [id number] [place] [address] [place] Lymphocytes/100 WBC (Bld) 30.8 % Normal [facility] Comment on above: Order Comment: Speci men Type: BLOOD SPECIMENOrdering Facility: [facility] Address: [address] [place] [address] Performed By: #### 5 7021-8 ####[facility]ORYCLIA [id number] [place] [id number] [place] MCH (RBC) [Entitic mass] 30.7 pg Normal 26.0-34.0 [facility] Comment on above: Order Comment: Speci men Type: BLOOD SPECIMENOrdering Facility: [facility] Address: [address] [place] [address] Performed By: #### 5 7021-8 ####[facility]ORYCLIA [id number] [place] [address] [place] MCHC (RBC) [Mass/Vol] 32.6 g/dL Normal 30.5-36.0 [facility] Comment on above: Order Comment: Speci men Type: BLOOD SPECIMENOrdering Facility: [facility] Address: [address] [place] [address] Performed By: #### 5 7021-8 ####[facility] [id number] [place] [id number] [place] MCV (RBC) [Entitic vol] 94.0 fL Normal 80.0-100.0 [facility] Comment on above: Order Comment: Speci men Type: BLOOD SPECIMENOrdering Facility: [facility] Address: [address] [place] [address] Performed By: #### 5 7021-8 ####[facility] [id number] [place] [address] [place] Monocytes (Bld) [#/Vol] 0.30 10*3/uL Normal <0.87 [facility] Comment on above: Order Comment: Speci men Type: BLOOD SPECIMENOrdering Facility: [facility] Address: [address] [place] [address] Performed By: #### 5 7021-8 ####[facility] [id number] [place] [address] [place] Monocytes/100 WBC (Bld) 6.1 % Normal [facility] Comment on above: Order Comment: Speci men Type: BLOOD SPECIMENOrdering Facility: [facility] Address: [address] [place] [address] Performed By: #### 5 7021-8 ####[facility] [id number] [place] [id number] [place] Neutrophils (Bld) [#/Vol] 3.02 10*3/uL Normal 1.45-7.50 [facility] Comment on above: Order Comment: Speci men Type: BLOOD SPECIMENOrdering Facility: [facility] Address: [address] [place] [address] Performed By: #### 5 7021-8 ####[facility] [id number] [place] [id number] [place] Neutrophils/100 WBC (Bld) 61.5 % Normal [facility] Comment on above: Order Comment: Speci men Type: BLOOD SPECIMENOrdering Facility: [facility] Address: [address] [place] [address] Performed By: #### 5 7021-8 ####[facility]ORYCLIA [id number] [place] [id number] [place] Nucleated RBC (Bld) [#/Vol] 10*3/uL Normal <0.01 [facility] Comment on above: Order Comment: Speci men Type: BLOOD SPECIMENOrdering Facility: [facility] Address: [address] [place] [address] Performed By: #### 5 7021-8 ####[facility] [id number] [place] [id number] [place] Nucleated RBC/100 WBC (Bld) [Ratio] 0.0 /100 WBC Normal [facility] Comment on above: Order Comment: Speci men Type: BLOOD SPECIMENOrdering Facility: [facility] Address: [address] [place] [address] Performed By: #### 5 7021-8 ####[facility] [id number] [place] [address] [place] Platelet mean volume (Bld) [Entitic vol] 11.0 fL Normal 9.0-12.7 [facility] Comment on above: Order Comment: Speci men Type: BLOOD SPECIMENOrdering Facility: [facility] Address: [address] [place] [address] Performed By: #### 5 7021-8 ####[facility] [id number] [place] [id number] [place] Platelets (Bld) [#/Vol] 84 10*3/uL Low 150-400 [facility] Comment on above: Order Comment: Speci men Type: BLOOD SPECIMENOrdering Facility: [facility] Address: [address] [place] [address] Result Comment: No c lot detected. Performed By: #### 5 7021-8 ####[facility] [id number] [place] [id number] [place] RBC (Bld) [#/Vol] 3.00 10*6/uL Low 3.90-5.20 [facility] Comment on above: Order Comment: Speci men Type: BLOOD SPECIMENOrdering Facility: [facility] Address: [address] [place] [address] Performed By: #### 5 7021-8 ####[facility] [id number] [address] WBC (Bld) [#/Vol] 4.91 10*3/uL Normal 3.70-11.00 [facility] Comment on above: Order Comment: Speci men Type: BLOOD SPECIMENOrdering Facility: [facility] Address: [address] [place] [address] Performed By: #### 5 7021-8 ####[facility] [id number] [address] ANES POSTPROC EVALon 024 ANES POSTPROC EVAL HNO ID: [id number] Author: JOHNNA OHARA DO Service: Anesthesiology Author Type: Anesthesiologist Type: Anesthesia Postprocedure Evaluation Filed: 12/29/2023 04:42 Note Text: POST ANESTHESIA EVALUATION NOTE : 1960 Procedure Summary Date: 12/28/23 Room / Location: OR11 / [facility] OR Anesthesia Start: 1533 Anesthesia Stop: 2351 Procedures: LAPAROSCOPIC COLECTOMY SIGMOID COLON W/ COLORECTAL ANASTOMOSIS (Abdomen) SIGMOIDOSCOPY FLEXIBLE (Colon Sigmoid) ILEOSTOMY (Abdomen) RESECTION COLON LOW ANTERIOR TAKE-DOWN SPLENIC FLEXURE PERFORMED W/ PARTIAL COLECTOMY LAPAROSCOPIC ABDOMINAL LYMPHADENECTOMY REGIONAL INCLUDING CELIAC GASTRIC PORTAL PERIPANCREATIC W/ OR W/O PARA-AORTIC AND VENA CAVAL NODES (Abdomen) Diagnosis: Cancer of sigmoid colon (HCC) Lymphadenopathy, abdominal (Cancer of sigmoid colon (HCC) [C18.7]) Surgeons: Kaley Francois MD; Ana Menezes MD Responsible Provider: Johnna Ohara DO Anesthesia Type: general ASA Status: 2 Anesthesia Type: general Airway Type: ETT Last Vitals Vitals Value Taken Time BP 135/71 12/29/23 0110 Temp 36.6 ?C (97.9 ?F) 12/29/23 0045 HR SpO2 101 12/29/23 0047 Resp 17 12/29/23 0110 SpO2 94 % 12/29/23 011 Vitals shown include unfiled device data. Post Anesthesia Patient Status Patient Evaluation: PACU. PACU/ICU Patient Condition: stable. Anticipated Disposition: inpatient floor planned admission. Neurological Status: aware and responsive. Pulmonary Status: breathing comfortably on supplemental oxygen Airway Control: returned to baseline unsupported. Cardiovascular Status: stable. Pain Management: clinically adequate - multimodal analgesia pain management approach Postoperative Hydration: acceptable. Intraoperative Events: no significant anesthesia events Post Operative Nausea/Vomiting Status: no significant post operative nausea or vomiting Recommendation: further care per PACU/ICU/floor team. Anesthesia Observations No Documentation SIGNATURE: Johnna Ohara DO PATIENT NAME: Nancy Sue DATE: December 29, 2023 TIME: 4:42 AM CSN: [id number] [facility] BRIEF OP NOTon 12-29-2023 BRIEF OP NOT HNO ID: [id number] Author: NAKUL CHINO MD Service: Colorectal Author Type: Resident Type: Brief Op Note Filed: 12/29/2023 00:13 Note Text: GENERAL SURGERY BRIEF OP NOTE LOG ID: [id number] Surgery/Procedure Date: 12/28/2023 Incision/Procedure Start Time: 4:18 PM Incision Close/Procedure End Time: 10:56 PM Surgeon(s) and Professor Of English(s): Surgeon(s) and Role: Panel 1: * Kaley Francois MD - Primary * Nakul Chino MD - Resident - Assisting Panel 2: * Ana Menezes MD - Primary * Amy Pascual MD - Resident - Assisting No Additional Staff Procedure(s): Procedure(s) with comments: LAPAROSCOPIC COLECTOMY SIGMOID COLON W/ COLORECTAL ANASTOMOSIS - Laparoscopic colectomy converted to open, low anterior resection, splenic flexture immobilization, diverting loop ileostomy, flexible sigmoidoscopy LAPAROSCOPIC ABDOMINAL LYMPHADENECTOMY REGIONAL INCLUDING CELIAC GASTRIC PORTAL PERIPANCREATIC W/ OR W/O PARA-AORTIC AND VENA CAVAL NODES SIGMOIDOSCOPY FLEXIBLE ILEOSTOMY - Diverting Loop Ileostomy RESECTION COLON LOW ANTERIOR TAKE-DOWN SPLENIC FLEXURE PERFORMED W/ PARTIAL COLECTOMY - Splenic Flexture Immobilization Anesthesia: General Findings: Significantly adhered sigmoid colon with significant adhesions EEA stapler used to create colorectal anastomosis (approx 9 cm from anal verge) - 2 intact doughnut rings of tissue on stapler, negative leak test, anastomosis patent and without signs of ischemia on flexible sigmoidoscopy Diverting loop ileostomy created using bowel approximately 50 cm from ileocecal valva Please see operative report for full details Drains: Yes, MIMI x1 IV Fluids: Per anesthesia report Estimated Blood Loss: 500 mls Estimated Urine Output: Per anesthesia report Specimens: ID Type Source Tests Collected by Time Destination A : hepatic artery lymph node Tissue Lymph Node SURGICAL PATHOLOGY Kaley Francois MD 12/28/2023 4:27 PM B : Sigmoid Colon, Upper Rectum Tissue Colon, Sigmoid, Resection SURGICAL PATHOLOGY Kaley Francois MD 12/28/2023 9:13 PM C : Distal Rectal Margin Tissue Colon, Donut, Resection SURGICAL PATHOLOGY Kaley Francois MD 12/28/2023 9:59 PM Wound Classification: Class 3, operative wound contaminated with presence of acute non-purulent inflammation Complications: None Pre-Op/Pre-Procedure Diagnosis: Pre-Op Diagnosis Codes: * Cancer of sigmoid colon (HCC) [C18.7] * Lymphadenopathy, abdominal [R59.0] Post-Op/Post-Procedure Diagnosis: Same SIGNATURE: Nakul Chino MD PATIENT NAME: Nancy Sue DATE: December 29, 2023 TIME: 12:08 AM PAGER/CONTACT #: Normal [facility] Basic metabolic 2000 panelon 12-29-2023 Anion gap [Moles/Vol] 13 mmol/L Normal 9-18 [facility] Comment on above: Order Comment: Speci men Type: BLOOD SPECIMENOrdering Facility: [facility] Address: [address] [place] [address] Performed By: #### 2 4321-2 ####[facility] LABORATORYCLIA [id number] [place] [address] [place] Calcium [Mass/Vol] 8.7 mg/dL Normal 8.5-10.2 [facility] Comment on above: Order Comment: Speci men Type: BLOOD SPECIMENOrdering Facility: [facility] Address: [address] [place] [address] Performed By: #### 2 4321-2 ####[facility] LABORATORYCLIA [id number] [place] [id number] [place] Chloride [Moles/Vol] 105 mmol/L Normal 97-105 [facility] Comment on above: Order Comment: Speci men Type: BLOOD SPECIMENOrdering Facility: [facility] Address: [address] [place] [address] Performed By: #### 2 4321-2 ####MAY[facility] LABORATORYCLIA [id number] [place] [id number] [place] CO2 [Moles/Vol] 21 mmol/L Low 22-30 [facility] Comment on above: Order Comment: Speci men Type: BLOOD SPECIMENOrdering Facility: [facility] Address: [address] [place] [address] Performed By: #### 2 4321-2 ####[facility] LABORATORYCLIA [id number] [place] [id number] [place] Creatinine [Mass/Vol] 0.75 mg/dL Normal 0.58-0.96 [facility] Comment on above: Order Comment: Speci men Type: BLOOD SPECIMENOrdering Facility: [facility] Address: [address] [place] [address] Performed By: #### 2 4321-2 ####MA[facility] LABORATORYCLIA [id number] [place] [id number] [facility] Creatinine and Glomerular filtration rate.predicted panel (S/P/Bld) 89 mL/min/1.73m??? Normal >=60 [facility] Comment on above: Order Comment: Speci men Type: BLOOD SPECIMENOrdering Facility: [facility] Address: [address] [place] [address] Result Comment: Kelsey mated Glomerular Filtration Rate [...] reflect actual GFR. Performed By: #### 2 4321-2 ####[facility] LABORATORYCLIA [id number] [place] [id number] [place] Glucose [Mass/Vol] 156 mg/dL High 74-99 [facility] Comment on above: Order Comment: Fatou nava Type: BLOOD SPECIMENOrdering Facility: [facility] Address: [address] [place] [address] Result Comment: The [place] [employer] (ADA) provides guidance for cutoff [...] Standards of Medical Care in Diabetes 2016, [place] [employer]. Diabetes Care. 2016.39(Suppl 1). Performed By: #### 2 4321-2 ####H[facility] LABORATORYCLIA [id number] [place] [id number] [place] Potassium [Moles/Vol] 4.6 mmol/L Normal 3.7-5.1 [facility] Comment on above: Order Comment: Fatou nava Type: BLOOD SPECIMENOrdering Facility: [facility] Address: [address] [place] [address] Performed By: #### 2 4321-2 ####H[facility] LABORATORYCLIA [id number] [place] [id number] [place] Sodium [Moles/Vol] 139 mmol/L Normal 136-144 [facility] Comment on above: Order Comment: Fatou nava Type: BLOOD SPECIMENOrdering Facility: [facility] Address: [address] [place] [address] Performed By: #### 2 4321-2 ####[facility] LABORATORYCLIA [id number] [place] [id number] [place] Urea nitrogen [Mass/Vol] 13 mg/dL Normal 7- [facility] Comment on above: Order Comment: Speci men Type: BLOOD SPECIMENOrdering Facility: [facility] Address: [address] [place] [address] Performed By: #### 2 4321-2 ####[facility] LABORATORYCLIA [id number] [place] [id number] [place] CBC W Auto Differential pane l (Bld)on 12-29-2023 Basophils (Bld) [#/Vol] 10*3/uL Normal <0.11 [facility] Comment on above: Order Comment: Speci men Type: BLOOD SPECIMEN [facility] Address: [address] [place] [address] Performed By: #### 2 4321-2, 2776-09, #### [facility] CLIA [id number] [address] [place] [address] [place] Basophils/100 WBC (Bld) 0.1 % Normal [facility] Comment on above: Order Comment: Speci men Type: BLOOD SPECIMEN [facility] Address: [address] [place] [address] Performed By: #### 2 4321-2, 2776-09, #### [facility] CLIA [id number] [address] [place], [place] [id number] [place] Differential cell count method Nom (Bld) Auto Normal [facility] Comment on above: Order Comment: Speci men Type: BLOOD SPECIMEN [facility] Address: [address] [place] [address] Performed By: #### 2 4321-2, 2776-09, #### [facility] CLIA [id number] [place], [place] [id number] [place] Eosinophils (Bld) [#/Vol] 10*3/uL Normal <0.46 [facility] Comment on above: Order Comment: Speci men Type: BLOOD SPECIMEN [facility] Address: [address] [place] [address] Performed By: #### 2 4321-2, 2776-09, #### [facility] CLIA [id number] [address] [place] [address] [place] Eosinophils/100 WBC (Bld) 0.0 % Normal [facility] Comment on above: Order Comment: Speci men Type: BLOOD SPECIMEN [facility] Address: [address] [place] [address] Performed By: #### 2 4321-2, 2776-09, #### [facility] CLIA [id number] [address] [place] [address] [place] Erythrocyte distribution width (RBC) [Ratio] 14.4 % Normal 11.5-15.0 [facility] Comment on above: Order Comment: Speci men Type: BLOOD SPECIMEN [facility] Address: [address] [place] [address] Performed By: #### 2 4321-2, 2776-09, #### [facility] CLIA [id number] [address] [place] [address] [place] Hematocrit (Bld) [Volume fraction] 31.9 % Low 36.0-46.0 [facility] Comment on above: Order Comment: Speci men Type: BLOOD SPECIMEN [facility] Address: [address] [place] [address] Performed By: #### 2 4321-2, 2776-09, #### [facility] CLIA [id number] [address] [place] [address] [place] Hemoglobin (Bld) [Mass/Vol] 10.7 g/dL Low 11.5-15.5 [facility] Comment on above: Order Comment: Speci men Type: BLOOD SPECIMEN [facility] Address: [address] [place] [address] Performed By: #### 2 4321-2, 2776-09, #### [facility] CLIA [id number] [address] [place] [address] [place] Immature granulocytes (Bld) [#/Vol] 0.03 10*3/uL Normal <0.10 [facility] Comment on above: Order Comment: Speci men Type: BLOOD SPECIMEN [facility] Address: [address] [place] [address] Performed By: #### 2 4321-2, 2776-09, #### [facility] CLIA [id number] [address] [place] [address] [place] Immature granulocytes/100 WBC (Bld) 0.4 % Normal [facility] Comment on above: Order Comment: Speci men Type: BLOOD SPECIMEN [facility] Address: [address] [place] [address] Performed By: #### 2 4321-2, 2776-09, #### [facility] CLIA [id number] [address] [place] [address] [place] Lymphocytes (Bld) [#/Vol] 0.64 10*3/uL Low 1.00-4.00 [facility] Comment on above: Order Comment: Speci men Type: BLOOD SPECIMEN [facility] Address: [address] [place] [address] Performed By: #### 2 4321-2, 2776-09, #### [facility] CLIA [id number] [address] [place] [address] [place] Lymphocytes/100 WBC (Bld) 7.6 % Normal [facility] Comment on above: Order Comment: Speci men Type: BLOOD SPECIMEN [facility] Address: [address] [place] [address] Performed By: #### 2 4321-2, 2776-09, #### [facility] CLIA [id number] [address] [place] [address] [place] MCH (RBC) [Entitic mass] 30.7 pg Normal 26.0-34.0 [facility] Comment on above: Order Comment: Speci men Type: BLOOD SPECIMEN [facility] Address: [address] [place] [address] Performed By: #### 2 4321-2, 2776-09, #### [facility] CLIA [id number] [address] [place], [place] [id number] [place] MCHC (RBC) [Mass/Vol] 33.5 g/dL Normal 30.5-36.0 [facility] Comment on above: Order Comment: Speci men Type: BLOOD SPECIMEN [facility] Address: [address] [place] [address] Performed By: #### 2 4321-2, 2776-09, #### [facility] CLIA [id number] [address] [place] [address] [place] MCV (RBC) [Entitic vol] 91.7 fL Normal 80.0-100.0 [facility] Comment on above: Order Comment: Speci men Type: BLOOD SPECIMEN [facility] Address: [address] [place] [address] Performed By: #### 2 432-2, 2776-09, #### [facility] CLIA [id number] [address] [place] [address] [place] Monocytes (Bld) [#/Vol] 0.37 10*3/uL Normal <0.87 [facility] Comment on above: Order Comment: Speci men Type: BLOOD SPECIMEN [facility] Address: [address] [place] [address] Performed By: #### 2 4321-2, 2776-09, #### [facility] CLIA [id number] [address] [place] [address] [place] Monocytes/100 WBC (Bld) 4.4 % Normal [facility] Comment on above: Order Comment: Speci men Type: BLOOD SPECIMEN [facility] Address: [address] [place] [address] Performed By: #### 2 4321-2, 2777- #### [facility] CLIA [id number] [address] [place] [address] [place] Neutrophils (Bld) [#/Vol] 7.37 10*3/uL Normal 1.45-7.50 [facility] Comment on above: Order Comment: Speci men Type: BLOOD SPECIMEN [facility] Address: [address] [place] [address] Performed By: #### 2 4321-2, 2776-09, #### [facility] CLIA [id number] [address] [place] [address] [place] Neutrophils/100 WBC (Bld) 87.5 % Normal [facility] Comment on above: Order Comment: Speci men Type: BLOOD SPECIMEN [facility] Address: [address] [place] [address] Performed By: #### 2 4321-2, 2776-09, #### [facility] CLIA [id number] [address] [place] [address] [place] Nucleated RBC (Bld) [#/Vol] 10*3/uL Normal <0.01 [facility] Comment on above: Order Comment: Speci men Type: BLOOD SPECIMEN [facility] Address: [address] [place] [address] Performed By: #### 2 4321-2, 2776-09, #### [facility] CLIA [id number] [address] [place] [address] [place] Nucleated RBC/100 WBC (Bld) [Ratio] 0.0 /100 WBC Normal [facility] Comment on above: Order Comment: Speci men Type: BLOOD SPECIMEN [facility] Address: [address] [place] [address] Performed By: #### 2 4321-2, 2776-09, #### [facility] CLIA [id number] [address] [place], [place] [address] [place] Platelet mean volume (Bld) [Entitic vol] 11.5 fL Normal 9.0-12.7 [facility] Comment on above: Order Comment: Speci men Type: BLOOD SPECIMEN [facility] Address: [address] [place] [address] Performed By: #### 2 4321-2, 27703-10, #### [facility] CLIA [id number] [address] [place] [address] [place] Platelets (Bld) [#/Vol] 96 10*3/uL Low 150-400 [facility] Comment on above: Order Comment: Speci men Type: BLOOD SPECIMEN [facility] Address: [address] [place] [address] Performed By: #### 2 4321-2, 2776-09, #### [facility] CLIA [id number] [address] [place] [address] [place] RBC (Bld) [#/Vol] 3.48 10*6/uL Low 3.90-5.20 [facility] Comment on above: Order Comment: Speci men Type: BLOOD SPECIMEN [facility] Address: [address] [place] [address] Performed By: #### 2 4321-2, 2776-09, #### [facility] CLIA [id number] [address] [place] [address] [place] WBC (Bld) [#/Vol] 8.42 10*3/uL Normal 3.70-11.00 [facility] Comment on above: Order Comment: Speci men Type: BLOOD SPECIMEN [facility] Address: [address] [place] [address] Performed By: #### 2 4321-2, 27703-10, #### [facility] CLIA [id number] [address] [place], [place] [address] [facility] CONSULTon 12-29-2023 CONSULT HNO ID: [id number] Author: CHI BONILLA APRN.[employer] SPECIALIST Service: Wound/Ostomy Author Type: Nurse Practitioner Type: Consults Filed: 12/29/2023 13:45 Note Text: OSTOMY SERVICE CONSULT COMMUNITY SERVICE COORDINATOR SERVICE DATE: 12/29/2023 SERVICE TIME: 1:00 PM NEXT VISIT: 12/31/2023 @ 10 AM Consultation requested by Nakul Chino MD for diverting loop ostomy. Any final recommendations will be communicated back to the requesting provider by way of shared medical record. Surgery: Laparoscopic colectomy converted to open, low anterior resection, splenic flexture immobilization, diverting loop ileostomy, flexible sigmoidoscopy Date of Surgery: 12/28/2023 Surgeon: Kaley Francois MD Subjective Nancy Sue is a 63 year old female is being seen with the admitting diagnosis of colon cancer. REVIEW OF SYSTEMS GENERAL: No weight loss, malaise or fevers RESPIRATORY: Negative for cough, dyspnea or shortness of breath CARDIOVASCULAR: Negative for chest pain or palpitations SKIN: Negative for lesions, rash, and itching PAST MEDICAL HISTORY Diagnosis Date Anemia High cholesterol HTN (hypertension) Hypothyroidism PAST SURGICAL HISTORY Procedure Laterality Date ;TOTAL HYSTERECTMY TUBE(S) AND/OR OVARY BRONCHOSCOPY W/PLACEMENT TRACHEAL STENT COLONOSCOPY SCREENING LIPOMA (MEDIUM) Current Facility-Administered Medications Medication Dose Route Frequency levothyroxine 50 mcg tab(s) (SYNTHROID) 50 mcg ORAL DAILY (6 AM) enoxaparin 40 mg injection (LOVENOX) 40 mg SUBCUTANEOUS q 24 HR NaCl 0.9% iv flush bag 20 mL INTRAVENOUS PRN lactated ringers iv infusion 75 mL/hr INTRAVENOUS CONTINUOUS alvimopan 12 mg cap(s) (ENTEREG) 12 mg ORAL BID ondansetron (PF) 4 mg injection (ZOFRAN) 4 mg INTRAVENOUS q 6 H PRN acetaminophen 1,000 mg tab(s) (TYLENOL) 1,000 mg ORAL q 6 H gabapentin 300 mg cap(s) (NEURONTIN) 300 mg ORAL q 8 H methocarbamol 1 g injection (ROBAXIN) 1 g INTRAVENOUS q 8 H naloxone 0.1 mg injection (NARCAN) 0.1 mg INTRAVENOUS q 2 MIN PRN NaCl 0.9% iv infusion 5-30 mL/hr INTRAVENOUS CONTINUOUS HYDROmorphone MANAGER SUBWAY 0.5 mg/mL in NaCl 0.9% 100 mL INTRAVENOUS CONTINUOUS keTORolac 15 mg injection (Toradol) 15 mg INTRAVENOUS q 6 H ALLERGIES Allergen Reactions Opmncln-Cmp-Pnz Red* Other: See Comments, Unknown, Myalgia myalgias Objective PHYSICAL EXAM: BP 106/63 Pulse 86 Temp (Src) 99 (Oral) Resp 16 SpO2 97% O2 Therapy: Nasal Cannula, Liters: 2.00 General: Alert, no distress, cooperative Skin: Skin color, texture, turgor normal. No rashes or lesions. Abdomen: Abdomen soft, non-tender, ileostomy intubated red and moist Stoma type: Loop ileostomy Diameter: 30 mm Location: RUQ Protrusion: Budded with franklyn intact Mucosal condition and color: Red and moist Mucocutaneous junction: Intact Peristomal Skin: Clear and intact Location of Skin Impairment: NA Supportive Tissue: Semisoft Character of output: Serosanguinous effluent Emptying frequency per day: TBD Current pouching system: [employer] [place] Flex flat cut-to-fit flange, used [employer] Cera Ring folded in half to cover franklyn and deep crease from 3-9 o'clock and one full ring to bag of flange with a drainable pouch Current wearing time: TBD Impression/Recommendations OSTOMY CARE EDUCATION: Today's Teaching Consisted of: Diet, Pouch care, Fluid intake, Bathing, Hygiene, and Clothing Supplemental Material: Pouch change Instruction Sheet [facility] Pre Op Kit with sample practice bags and Harsha Ileostomy Discharge Instructions Method of Instruction: Individual instruction Written instruction - handouts Verbal instruction Demonstration-Hands on Learning Factors Affecting Learning: Emotional Factors: Anxious Instruction Provided To: Patient PLAN: Recommend discharge with home care for ostomy teaching needs: Continue education and assit ordering supplies. I spent 60 minutes in this visit, with more than 50% of the time devoted to patient counseling. Thank you for including the ostomy service in the care of this patient. SIGNATURE: Chi Bonilla APRN.MONTEZ PATIENT NAME: Nancy Sue DATE: December 29, 2023 TIME: 1:34 PM Normal [facility] CONSULT PROGon 12-29-2023 CONSULT PROG HNO ID: [id number] Author: PHILLIP FLANAGAN MD Service: General Surgery Author Type: Resident Type: Consult Progress Note Filed: 12/29/2023 15:57 Note Text: HEPATOBILIARY SURGERY CONSULT PROGRESS NOTE Nancy Sue [id number] ADMISSION DATE: 12/28/2023 Patient Active Hospital Problem List: Colon cancer (HCC) (12/28/2023) Encounter for ostomy care education (12/29/2023) Ileostomy bag changed (HCC) (12/29/2023) Ileostomy present (HCC) (12/29/2023) POD: 1 Day Post-Op Procedure(s) and Anesthesia Type: Panel 1: * LAPAROSCOPIC COLECTOMY SIGMOID COLON W/ COLORECTAL ANASTOMOSIS - General * SIGMOIDOSCOPY FLEXIBLE - General * ILEOSTOMY * RESECTION COLON LOW ANTERIOR * TAKE-DOWN SPLENIC FLEXURE PERFORMED W/ PARTIAL COLECTOMY Panel 2: * LAPAROSCOPIC ABDOMINAL LYMPHADENECTOMY REGIONAL INCLUDING CELIAC GASTRIC PORTAL PERIPANCREATIC W/ OR W/O PARA-AORTIC AND VENA CAVAL NODES - General ASSESSMENT AND PLAN Nancy Sue is a 63 year old female who is now s/p open low anterior resection with colorectal anastomosis, laparoscopic splenic flexure mobilization, and flexible sigmoidoscopy(CORS) and laparoscopic Hepatic artery LN biopsy(Dr. Menezes). Currently doing well - F/u path - HPB surgery will sign off, please reach out with questions - Remainder of care per primary team Plan of care discussed with staff, Dr. Clif Flanagan MD General Surgery Resident Service Pager: [phone] After 6PM + Weekends: [phone] SUBJECTIVE: No acute events overnight. Pain well controlled. OBJECTIVE: BP 104/50 Pulse 75 Temp 36.6 ?C (97.9 ?F) (Oral) Resp 18 SpO2 97% There is no height or weight on file to calculate BMI. GENERAL: Alert and oriented, no acute distress, cooperative. LUNGS: Non labored breathing on RA ABDOMEN: soft, appropriately tender, non distended, MIMI SS INCISIONS: clean, dry and intact EXTREMITIES: warm, well perfused Labs: CBC, Coags, BMP, Mg, Phos Recent Labs 12/29/23 0429 WBC 8.42 HB 10.7* HCT 31.9* PLT 96* NA 139 K 4.6 CHLOR 105 CO2 21* BUN 13 CREAT 0.75 GLUC 156* CA 8.7 Liver Function, Amylase, AND Lipase I/O past 24h: Intake/Output Summary (Last 24 hours) at 12/29/2023 1555 Last data filed at 12/29/2023 1340 Gross per 24 hour Intake 6213 ml Output 1940 ml Net 4273 ml LDA: Lines, Drains, and Airways Line Duration Peripheral 12/28/23 1304 [facility] Left Hand 22 Gauge 1 day Peripheral 12/28/23 1544 Right 16 Gauge 1 day Peripheral 12/28/23 1546 Right Hand 18 Gauge 1 day Drain Duration Colostomy 12/28/23 RUQ <1 day Drain/Tube 12/28/23 2211 [facility] Left Anterior;Upper Quadrant <1 day Indwelling Urinary Catheter 12/28/23 1610 [facility] Calix 16 Fr <1 day SURGERY/PROCEDURE: Procedure(s) and Anesthesia Type: Panel 1: * LAPAROSCOPIC COLECTOMY SIGMOID COLON W/ COLORECTAL ANASTOMOSIS - General * SIGMOIDOSCOPY FLEXIBLE - General * ILEOSTOMY * RESECTION COLON LOW ANTERIOR * TAKE-DOWN SPLENIC FLEXURE PERFORMED W/ PARTIAL COLECTOMY Panel 2: * LAPAROSCOPIC ABDOMINAL LYMPHADENECTOMY REGIONAL INCLUDING CELIAC GASTRIC PORTAL PERIPANCREATIC W/ OR W/O PARA-AORTIC AND VENA CAVAL NODES - General [facility] NURSING PROGon 12-29-2023 NURSING PROG HNO ID: [id number] Author: SANDIE MUÑOZ RN Service: ? Author Type: Registered Nurse Type: Nursing Progress Note Filed: 12/29/2023 02:41 Note Text: Pt drowsy, arousable, stays awake for assessment. Daughter and at bedside when first up to floor. Tolerating Ice chips. Pain controlled with MANAGER SUBWAY dilaudid , tylenol, robaxin, neurontin. [facility] ANES PRE-OPon 12-28-2023 ANES PRE-OP HNO ID: [id number] Author: YADIRA DORADO MD Service: Pain Management Author Type: Anesthesiologist Type: Anesthesia Preprocedure Evaluation Filed: 12/28/2023 16:24 Note Text: ANESTHESIOLOGY DAY OF SURGERY NOTE : 1960 Procedure Information Anesthesia Start Date/Time: 12/28/23 1533 Procedures: LAPAROSCOPIC COLECTOMY SIGMOID COLON W/ COLORECTAL ANASTOMOSIS (Abdomen) LAPAROSCOPIC ABDOMINAL LYMPHADENECTOMY REGIONAL INCLUDING CELIAC GASTRIC PORTAL PERIPANCREATIC W/ OR W/O PARA-AORTIC AND VENA CAVAL NODES (Abdomen) Location: [facility] / [facility] Surgeons: Kaley Francois MD; Ana Menezes MD Estimated body mass index is 37.45 kg/m? as calculated from the following: Height as of 12/19/23: 164.3 cm (5' 4.69 ). Weight as of 12/19/23: 101.1 kg (222 lb 14.2 oz). Most recent hematocrit and potassium results: Hematocrit 40.6 12/19/2023 Potassium 4.4 12/19/2023 Relevant Problems ANESTHESIA (+) PONV (postoperative nausea and vomiting) CARDIO (+) HTN (hypertension) ENDO (+) Hypothyroidism I - PHYSICAL EVALUATION AIRWAY Patient intubated: No. Tracheostomy tube not present Mallampati: III. TM distance: >3 FB. Neck ROM: full ROM without neurological symptoms. Mouth opening: adequate. Short neck: no. Thick neck: no DENTAL Dental findings: teeth intact. Additional exam findings: no II - ANESTHESIA PLAN ASA Score: 2 Anesthetic Plan: general Airway type: ETT The patient is not a current smoker. NPO Status: adequate Beta Konstantin Monitoring Plan Monitoring plan: standard ASA. Post Procedure Analgesic Plan Postoperative analgesic plan: multimodal analgesia and parenteral or oral opioids. Informed Consent Anesthetic risks, benefits, alternatives, personnel and consent discussed: yes. Patient / Responsible Alliance Party agrees to proceed: yes Patient / Surrogate agrees to blood products: Yes Vitals Value Taken Time BP 147/83 12/28/23 1305 Pulse Resp 20 12/28/23 1305 Temp 36.4 ?C (97.5 ?F) 12/28/23 1305 SpO2 99 % 12/28/23 1305 Facility-Administered Medications as of 12/28/2023 Medication Dose Route Frequency - lidocaine (PF) 10 mg/mL (1 %) 1-2 mg injection (XYLOCAINE) 0.1-0.2 mL INTRADERMAL ONCE - lactated ringers iv infusion 30 mL/hr INTRAVENOUS CONTINUOUS - [COMPLETED] acetaminophen 1,000 mg tab(s) (TYLENOL) 1,000 mg ORAL Pre-Op Once - [COMPLETED] gabapentin 300 mg cap(s) (NEURONTIN) 300 mg ORAL Pre-Op Once - [COMPLETED] heparin 5,000 Units injection 5,000 Units SUBCUTANEOUS ONCE - [COMPLETED] alvimopan 12 mg cap(s) (ENTEREG) 12 mg ORAL Pre-Op Once - [COMPLETED] metroNIDAZOLE iv piggyback 500 mg in NaCl (iso-osmotic) 100 mL (FLAGYL) 500 mg INTRAVENOUS Pre-Op Once - [COMPLETED] cefTRIAXone 2 g in D5W 100 mL Vial-Bag (ROCEPHIN) 2 g INTRAVENOUS Pre-Op Once - NaCl 0.9% iv flush bag 20 mL INTRAVENOUS PRN - lactated ringers iv infusion 5-30 mL/hr INTRAVENOUS CONTINUOUS - lidocaine (PF) 10 mg/mL (1 %) 1-2 mg injection (XYLOCAINE) 0.1-0.2 mL INTRADERMAL PRN Outpatient Medications as of 12/28/2023 Medication Sig - neomycin 500 mg tablet Take 2 tablets by mouth as directed. Take 2 tablets at 6 pm, again at 7 pm and at 11 pm the evening prior to surgery - metroNIDAZOLE (FLAGYL) 500 mg tablet Take 1 tablet by mouth as directed. Take 1 tablet at 6 pm, another at 7 pm and again at 11 pm, the evening prior to surgery - levothyroxine (SYNTHROID) 50 mcg tablet Take 50 mcg by mouth once daily. - iv contrast [...] link. (Patient not taking: Reported on 11/13/2023) - enteric contrast (will be provided with radiology test) For CT CHESTABD/PEL W IVCON Routine order Administer, As Directed One Time Only, via Oral, Rectal, both Oral and Rectal, Enteric Tube, Stoma or Indwelling Catheter, Enteric Contrast as designated per enteric contrast guidelines (Patient not taking: Reported on 11/13/2023) - Ascorbic Mbrf-Onkmzcufz-Azz (EMERGEN-C) 1,000 mg pwep Take 1 Packet by mouth once daily. - iron glycinate,polysacch cmplx (IRON BIS GLYCIN-FE P-SAC CMPLX ORAL) Take 20 mg by mouth once daily. - collagen, hydrolysate, bovine, (COLLAGEN, HYDR, BOVINE,, BULK,) 100 % powd Take 1 Dose by mouth once daily. - ondansetron (ZOFRAN) 8 mg tablet Take 1 tablet by mouth every 8 hours as needed for nausea/vomiting. - prochlorperazine (COMPAZINE) 10 mg tablet Take 1 tablet by mouth every 6 hours as needed. - folic acid 1 mg tablet Take 1 mg by mouth once daily. - acetaminophen/diphenhydram ine (TYLENOL PM (more content not included)... [facility] BRIEF OP NOTon 12-28-2023 BRIEF OP NOT HNO ID: [id number] Author: AMY PASCUAL MD Service: General Surgery Author Type: Fellow Type: Brief Op Note Filed: 12/28/2023 18:24 Note Text: BRIEF OPERATIVE / PROCEDURE NOTE LOG ID: [id number] SURGERY/PROCEDURE DATE: 12/28/2023 INCISION/PROCEDURE START TIME: 4:18 PM INCISION CLOSE/PROCEDURE END TIME: SURGEON(S)/PROCEDURALIST(S ) AND LEAF STRIPPER(S): Surgeon(s) and Role: Panel 1: * Kaley Francois MD - Primary Panel 2: * Ana Menezes MD - Primary * Amy Pascual MD - Resident - Assisting No Additional Staff SURGERY/PROCEDURE(S): Laparoscopic Hepatic artery LN biopsy ANESTHESIA: General FINDINGS: Cirrhotic liver ESTIMATED BLOOD LOSS: minimal SPECIMENS: ID Type Source Tests Collected by Time Destination A : hepatic artery lymph node Tissue Lymph Node SURGICAL PATHOLOGY Kaley Francois MD 12/28/2023 4:27 PM COMPLICATIONS: None PRE-OP/PRE-PROCEDURE DIAGNOSIS: Metastatic colon cancer to abdominal LN POST-OP/POST-PROCEDURE DIAGNOSIS: No LN metastasis SIGNATURE: Amy Pascual MD PATIENT NAME: Nancy Sue DATE: December 28, 2023 TIME: 6:22 PM [facility] CONFIRM BLOOD TYPEon 024 ABO A [facility] Comment on above: Order Comment: Speci men Type: BLOOD SPECIMENOrdering Facility: [facility] Address: [address] [place] [address] Performed By: #### C ONABO ####[facility] [id number] [address] Rh Nom (Bld) Positive Normal [facility] Comment on above: Order Comment: Speci men Type: BLOOD SPECIMENOrdering Facility: [facility] Address: [address] [place] [address] Performed By: #### C ONABO ####[facility] [id number] [address] OPERATIVE NOon 12-28-2023 OPERATIVE NO HNO ID: [id number] Author: KALEY FRANCOIS MD Service: Colorectal Author Type: Physician Type: Operative Report Filed: 12/29/2023 17:10 Note Text: COLON AND RECTAL SURGERY OPERATIVE REPORT PATIENT NAME: Nancy Sue ADMISSION DATE: 12/28/2023 LOG ID: [id number] SURGERY/PROCEDURE DATE: 12/28/2023 INCISION/PROCEDURE START TIME: 4:18 PM INCISION CLOSE/PROCEDURE END TIME: 10:56 PM AGE: [age] year old SEX: female SURGEON(S)/PROCEDURALIST(S ) AND LEAF STRIPPER(S): Surgeon(s) and Role: Panel 1: * Kaley Francois MD - Primary * Nakul Chino MD - Resident - Assisting Panel 2: * Ana Menezes MD - Primary * Amy Pascual MD - Resident - Assisting No Additional Staff ANESTHESIA: General PREOPERATIVE DIAGNOSIS (ES): Sigmoid colon cancer POSTOPERATIVE DIAGNOSIS (ES): Same NAME OF OPERATION: Laparoscopic converted to open low anterior resection Splenic flexure mobilization Diverting loop ileostomy Flexible Sigmoidoscopy 22 modifier for difficult splenic flexure and pelvic dissection INDICATIONS FOR PROCEDURE: 63 y/o woman with sigmoid cancer, s/p neoadjuvant chemo for presumed stage IV disease during FDG avid portocaval/paraceliac nodes. These nodes were presumed to be metastatic disease but remained stable on chemotherapy. Tumor board consensus was to proceed with the nodes sampling and colectomy for the primary. R/B/A was discussed with patient and informed consent was obtained. OPERATIVE FINDINGS: Intra-op frozen of Hepatic artery LN by Dr. Hernandez was negative for mets. No peritoneal diease, cirrhotic liver. Pelvic scarring from prior hysterectomy and friable fatty tissue. Distal sigmoid mass with colorectal anastomosis with 28EEA, ~9cm from anal verge. DESCRIPTION OF PROCEDURE: The patient was brought to the operating room and placed under general anesthesia without complication. Calix was inserted and the patient was then placed in the lithotomy position. The abdomen was prepped and draped in normal sterile fashion. The patient received appropriate preop antibiotics and DVT prophylaxis. A surgical time-out was performed. Dr. Hernandez completed his portion of the surgery then I took over. Bilateral laparoscopic TAP block was completed using 0.5% marcaine mixed with exparel. Patient already had a RUQ, and two left sided 5mm ports. I added a RLQ and left mid abdomen 5mm ports to facilitate my portion of the surgery. The liver was inspected and appeared cirrhotic but no evidence of mets, as was the remainder of the peritoneal cavity. The omentum was adherent to the anterior abdominal wall, which was mobilized using a liagsure. I then turned my attention to the pelvis. The sigmoid colon appeared sucked in with multiple adhesions to the structures in the pelvis including the side wall, vagina, as well as small bowel mesentery. I was unable to identify the mass or tattoo. We performed a flex sig, which confirmed location of the mass in distal sigmoid and tattoo in the upper rectum. I decided to start with a lateral to medial approach; the lateral attachments of the sigmoid colon and descending colon were divided along the White line of Toldt. The colon was mobilized medially by dissecting the colonic mesentery off the retroperitoneal tissue. This was a difficult dissection as her mesentery was very friable and the planes were fused. The left ureter was identified and swept out of harm's way. I turned my attention towards the pelvic dissection. I was able to mobilize the sigmoid colon from the sidewall and mobilize the vaginal cuff sharply using endoshears. However, the sigmoid colon remains sucked in and I was able to completely mobilize it from the pelvis. I attempted medial dissection to try to enter the TME plane; first I mobilize the small bowel away by sharply dividing adhesions. Multiple attempt made to enter medial plane or presacral plane lead to multiple bleeding. At this point, I decided I will need to convert to open to complete the pelvic dissection. I packed the pelvis with [employer] tech to allow me to complete the splenic flexure mobilization laparoscopic. The patient was then placed in slight reverse trendelenburg position with the left side up. The omentum was retracted cephalad above the transverse colon and the transverse colon was identified. The attachments of the omentum to the transverse colon were then taken with the ligasure to enter into the lesser sac and the posterior wall of the stomach was identified. Again, this was a difficult dissection due to fusion of the planes and friability of her fatty tissue.The remaining attachments of the omentum to the transverse colon as the colon extended distally towards the spleen were then transected. This allowed us to take the superior lateral and posterior attachments of the splenic flexure to elevate the colon and its mesocolon off of Gerota's fascia. The remaining attachme (more content not included)... [facility] PT EDon 12-28-2023 PT ED HNO ID: [id number] Author: KAPIL NASCIMENTO, RN Service: ? Author Type: Registered Nurse Type: Patient Education Filed: 12/28/2023 12:51 Note Text: PATIENT EDUCATION TOPIC: PROCEDURE / SURGERY: Pre-op Teaching: Logistics Protocols Complication Prevention PATIENT NAME: Nancy PATIENT LOCATION: [facility] OR POOL/[facility] OR POOL READINESS TO LEARN COGNITIVE ABILITY: Alert and oriented MOTIVATION TO LEARN: Interested FAMILY SUPPORT: Unable to assess - Family not present INSTRUCTION PROVIDED TO: Patient PATIENT LEARNS BEST BY: Individual Instruction Verbal Instruction FACTORS AFFECTING LEARNING: None PHYSICAL LIMITATIONS AFFECTING LEARNING: None LEARNING RESPONSE DIAGNOSIS: ADULT: PATIENT/FAMILY RESPONSE: Verbalizes understanding of: PRE-OPERATIVE INSTRUCTIONS-Correct action to take to follow pre-operative instructions METHOD OF INSTRUCTION: Individual instruction Verbal instruction FOLLOW-UP PLAN: Complete - No need for follow-up INSTRUCTIONAL AIDS USED: NA SUPPLEMENTAL MATERIAL PROVIDED TO PATIENT: None REFERRAL (RECOMMENDATION): None Electronically Signed By: Kapil Nascimento [facility] SURGICAL PATHOLOGYon 024 BLOCK FOR ADDITIONAL BIOMARKERS/MOLECULAR STUDIES B5 [facility] Comment on above: Order Comment: Speci men Type: BLOOD SPECIMEN [facility] Address: [address] [place] [address] Performed By: #### 2 4321-2, 97351-6, 2777-1 #### [facility] CLIA [id number] [address] [place] [address] [place] CASE REPORT Normal [facility] Comment on above: Order Comment: Speci men Type: BLOOD SPECIMEN [facility] Address: [address] [place] [address] Result Comment: Surg ical Pathology Report Case: [id number] Authorizing Provider: Kaley Francois MD Collected: 12/28/2023 04:27 PM Ordering Location: [facility] Received: 12/28/2023 04:54 PM Operating Room Pathologist: Jhoan Crespo MD Intraop: Margoth Peace MD Specimens: A) - Lymph Node, hepatic artery lymph node B) - Colon, Sigmoid, Resection, Sigmoid Colon, Upper Rectum C) - Colon, Donut, Resection, Distal Rectal Margin Performed By: #### 2 4321-2, 85035-8, 2776- #### [facility] CLIA [id number] [address] [place] [address] CLINICAL HISTORY Normal [facility] Comment on above: Order Comment: Speci men Type: BLOOD SPECIMEN [facility] Address: [address] [place] [address] Result Comment: [place] roscopic colectomy converted to open, lower interior resection, immobilization Pre-op diagnosis: Cancer of sigmoid colon (HCC) [C18.7] Performed By: #### 2 4321-2, , 2776- #### [facility] CLIA [id number] [address] [place] [address] FINAL DIAGNOSIS Normal [facility] Comment on above: Order Comment: Speci men Type: BLOOD SPECIMEN [facility] Address: [address] [place] [address] Result Comment: A. H epatic artery lymph node, excision: - One lymph node, negative for malignancy (0/1). B. Sigmoid colon and proximal rectum, resection: - Residual invasive adenocarcinoma (see synoptic report). - One additional tubular adenoma. - Diverticular disease with associated focal active inflammation. - Sixteen lymph nodes, negative for malignancy (0/16). C. Distal donut, excision: - Segment of rectum with no diagnostic abnormality. JEL 01/02/2024 Performed By: #### 2 4321-2, , 2776-09 #### [facility] CLIA [id number] [address] [place] [address] FINAL PERFORMING LAB Normal [facility] Comment on above: Order Comment: Speci men Type: BLOOD SPECIMEN [facility] Address: [address] [place] [address] Result Comment: Diag nostic interpretation performed at [facility], [address] [place] [address] CLIA# [id number] Unhairing Machine Operator: Isai Ku M.D. Performed By: #### 2 4321-2, , 2776-09 #### [facility] CLIA [id number] [address] [place] [address] GROSS DESCRIPTION A. Lymph Node Normal [facility] Comment on above: Order Comment: Speci men Type: BLOOD SPECIMEN [facility] Address: [address] [place] [address] Result Comment: Rece ived fresh for intraoperative frozen diagnosis designated hepatic artery lymph node is a fragment of tissue consistent with one lymph node measuring 0.5 x 0.4 x 0.3 cm. The specimen is serially sectioned and totally submitted for frozen then for permanent in cassette FSA1. B. Colon, Sigmoid, Resection Received in formalin designated sigmoid colon, upper rectum is a segment of bowel measuring 21.8 cm in length and averaging 3.5 cm in circumference. The specimen appears to have been transected distally at or above the level of the anterior peritoneal reflection. The mesorectal soft tissue is grossly complete. Photographs were taken. The proximal margin is inked blue. The distal margin is inked orange, and the soft tissue margins are inked black. Examination of the mucosal surface reveals a chavez puckered lesion on the left lateral bowel wall, measuring 1.4 x 0.6 cm and located 3.7 cm from the distal margin and 19.7 cm from the proximal margin. Adjacent to the lesion on the posterior wall is a sessile polyp measuring 0.7 x 0.4 x 0.4 cm and located 3.5 cm from the distal margin and 18.3 cm from the proximal margin. Sectioning of the puckered lesion reveals possible residual tumor grossly invading into the muscularis propria and located 4.2 cm in the mesenteric margin and 5.1 cm from the posterior circumferential (radial) margin. The remainder of the mucosal surface is chavez-pink with normal mucosal ridges. Sectioning reveals tattoo ink within the bowel wall distal to the area of lesion. Sectioning also reveals multiple diverticula. None of the diverticula are grossly abscessed or perforated. The bowel wall averages 0.5 cm in thickness. The serosal surface is chavez-purple and smooth with rare adhesions. Sectioning of the attached soft tissue reveals multiple chavez to chavez-red lymph nodes measuring up to 0.6 cm in greatest dimension. The lesion and polyp are totally submitted along with uniforms sales representative sections as follows: B1 perpendicular proximal and distal margins, B2 perpendicular mesenteric margin, B3 perpendicular posterior circumferential (radial) margin, B4-B7 lesion totally submitted, B8 polyp totally submitted, B9-B10 diverticula, B11 12 cm from distal margin, B12-B15 one lymph node bisected and totally submitted per cassette, B16 four lymph nodes totally submitted, B17 three lymph nodes totally submitted, B18 four lymph nodes totally submitted. December 31, 2023 2:38 PM Gross examination performed at [facility], [address] [place] [address] CLIA # [id number] C. Colon, Donut, Resection Received in formalin designated distal rectal margin colon donut is a ring of bowel which measures 0.6 cm in length by 2.4 cm in circumference. Sectioning does not reveal any masses. Aerosol Supervisor sections are submitted in one cassette. December 31, 2023 1:43 PM Gross examination performed at [facility], [address] [place] [address] CLIA # [id number] Performed By: #### 2 4321-2, 21957-2, 2777-1 #### [facility] CLIA [id number] [address] [place] [address] [place] INTRAOPERATIVE DIAGNOSIS A. Lymph Node Normal [facility] Comment on above: Order Comment: Speci men Type: BLOOD SPECIMEN [facility] Address: [address] [place] [address] Result Comment: FSA1 : Hepatic artery lymph node - One lymph node, negative for carcinoma. (Dr. Peace) BF December 31, 2023 9:40 AM Gross examination performed at [facility], [address] [place] [id number] CLIA # [id number] Performed By: #### 2 4321-2, 27473-9, 2777-1 #### [facility] CLIA [id number] [place] [address] [place] SYNOPTIC REPORT Normal [facility] Comment on above: Order Comment: Speci men Type: BLOOD SPECIMEN [facility] Address: [address] [place] [address] Result Comment: COLO N AND RECTUM: Resection, Including Transanal Disk Excision of Rectal Neoplasms COLON AND RECTUM: RESECTION - All Specimens 8th Edition - Protocol posted: 03/01/2022 SPECIMEN Procedure: Low anterior resection TUMOR Tumor Site: Sigmoid colon Histologic Type: Adenocarcinoma Histologic Grade: G2, moderately differentiated Tumor Size: Greatest dimension (Centimeters): 1.4 cm Tumor Extent: Invades into muscularis propria Macroscopic Tumor Perforation: Not identified Lymphovascular Invasion: Not identified Perineural Invasion: Not identified Treatment Effect: Absent, with extensive residual cancer and no evident tumor regression (poor or no response, score 3) MARGINS Margin Status for Invasive Carcinoma: All margins negative for invasive carcinoma Distance from Invasive Carcinoma to Radial (Circumferential) Margin: 51 mm Distance from Invasive Carcinoma to Distal Margin: 43 mm Margin Status for Non-Invasive Tumor: All margins negative for high-grade dysplasia / intramucosal carcinoma and low-grade dysplasia REGIONAL LYMPH NODES Regional Lymph Node Status: : All regional lymph nodes negative for tumor Number of Lymph Nodes Examined: 16 Tumor Deposits: Not identified PATHOLOGIC STAGE CLASSIFICATION (pTNM, AJCC 8th Edition) Reporting of pT, pN, and (when applicable) pM categories is based on information available to the pathologist at the time the report is issued. As per the AJCC (Chapter 1, 8th Ed.) it is the managing physician???s responsibility to establish the final pathologic stage based upon all pertinent information, including but potentially not limited to this pathology report. TNM Descriptors: y (post-treatment) pT Category: pT2 pN Category: pN0 Performed By: #### 2 4321-2, 64401-2, 2777-1 #### [id number] [address] [place] [address] [place] CBC W Auto Differential pane l (Bld)on 11-21-2023 Basophils (Bld) [#/Vol] <0.11 k/uL [facility] Basophils/100 WBC (Bld) 0.5 % [facility] Differential cell count method Nom (Bld) Auto [facility] Eosinophils (Bld) [#/Vol] 0.16 10*3/uL <0.46 k/uL [facility] Eosinophils/100 WBC (Bld) 4.3 % [facility] Erythrocyte distribution width (RBC) [Ratio] 17.2 % High 11.5 - 15.0 % [facility] Hematocrit (Bld) [Volume fraction] 37.3 % 36.0 - 46.0 % [facility] Hemoglobin (Bld) [Mass/Vol] 12.1 g/dL 11.5 - 15.5 g/dL [facility] Immature granulocytes (Bld) [#/Vol] <0.10 k/uL [facility] Immature granulocytes/100 WBC (Bld) 0.5 % [facility] Lymphocytes (Bld) [#/Vol] 1.21 10*3/uL 1.00 - 4.00 k/uL [facility] Lymphocytes/100 WBC (Bld) 32.8 % [facility] MCH (RBC) [Entitic mass] 29.2 pg 26.0 - 34.0 pg [facility] MCHC (RBC) [Mass/Vol] 32.4 g/dL 30.5 - 36.0 g/dL [facility] MCV (RBC) [Entitic vol] 90.1 fL 80.0 - 100.0 fL [facility] Monocytes (Bld) [#/Vol] 0.30 10*3/uL <0.87 k/uL [facility] Monocytes/100 WBC (Bld) 8.1 % [facility] Neutrophils (Bld) [#/Vol] 1.98 10*3/uL 1.45 - 7.50 k/uL [facility] Neutrophils/100 WBC (Bld) 53.8 % [facility] Nucleated RBC (Bld) [#/Vol] <0.01 k/uL [facility] Nucleated RBC/100 WBC (Bld) [Ratio] 0.0 /100 WBC [facility] Platelet mean volume (Bld) [Entitic vol] 10.2 fL 9.0 - 12.7 fL [facility] Platelets (Bld) [#/Vol] 101 10*3/uL Low 150 - 400 k/uL [facility] RBC (Bld) [#/Vol] 4.14 10*6/uL 3.90 - 5.20 m/uL [facility] WBC (Bld) [#/Vol] 3.69 10*3/uL Low 3.70 - 11.00 k/uL [facility] Comprehensive metabolic 2000 panelon 11-21-2023 Albumin [Mass/Vol] 4.2 g/dL 3.9 - 4.9 g/dL [facility] ALP [Catalytic activity/Vol] 69 U/L 34 - 123 U/L [facility] ALT [Catalytic activity/Vol] 35 U/L 7 - 38 U/L [facility] Anion gap [Moles/Vol] 11 mmol/L 9 - 18 mmol/L [facility] AST [Catalytic activity/Vol] 43 U/L High 13 - 35 U/L [facility] Bilirubin [Mass/Vol] 0.5 mg/dL 0.2 - 1 .3 mg/dL [facility] Calcium [Mass/Vol] 9.5 mg/dL 8.5 - 10. 2 mg/dL [facility] Chloride [Moles/Vol] 107 mmol/L High 97 - 10 5 mmol/L [facility] CO2 [Moles/Vol] 25 mmol/L 22 - 30 mmol/L [facility] Creatinine [Mass/Vol] 0.84 mg/dL 0.58 - 0.96 mg/dL [facility] Estimated Glomerular Filtration Rate 78 mL/min/1.73m >=60 mL/min/1.7 3m [facility] Glucose [Mass/Vol] 110 mg/dL High 74 - 99 mg/dL [facility] Potassium [Moles/Vol] 4.3 mmol/L 3.7 - 5.1 mmol/L [facility] Protein [Mass/Vol] 6.8 g/dL 6.3 - 8.0 g/dL [facility] Sodium [Moles/Vol] 143 mmol/L 136 - 144 mmol/L [facility] Urea nitrogen [Mass/Vol] 14 mg/dL 7 - 21 mg/dL [facility] CEA BLDon 11-08-2023 Carcinoembryonic Ag [Mass/Vol] 1.2 ng/mL [facility] - 2.9 ng/mL [facility] Comment on above: Carcinoembryonic ant igen test is used as an aid in monitoring response to treatment or recurrence in patients with established colorectal, breast, lung, prostatic, pancreatic, and ovarian carcinomas. Clinical correlation is required. The Carcinoembryonic antigen test was performed using the [employer] DXI paramagnetic particle chemiluminescent immunoassay method. Results obtained with different assay methods or kits cannot be used interchangeably. Carcinoembryonic Ag [Mass/Vo l]on 11-08-2023 Interpretation and review of laboratory results Normal [facility] CBC W Auto Differential pane l (Bld)on 11-07-2023 Basophils (Bld) [#/Vol] 0.03 10*3/uL [facility] Basophils/100 WBC (Bld) 0.5 % [facility] Differential cell count method Nom (Bld) Auto [facility] Eosinophils (Bld) [#/Vol] 0.18 10*3/uL [facility] Eosinophils/100 WBC (Bld) 3.2 % [facility] Erythrocyte distribution width (RBC) [Ratio] 16.6 % High 11.5 - 15.0 % [facility] Hematocrit (Bld) [Volume fraction] 35.1 % Low 36.0 - 46.0 % [facility] Hemoglobin (Bld) [Mass/Vol] 11.7 g/dL 11.5 - 15.5 g/dL [facility] Immature granulocytes (Bld) [#/Vol] 0.06 10*3/uL [facility] Immature granulocytes/100 WBC (Bld) 1.1 % [facility] Interpretation and review of laboratory results Abnormal [facility] Lymphocytes (Bld) [#/Vol] 1.42 10*3/uL [facility] Lymphocytes/100 WBC (Bld) 25.0 % [facility] MCH (RBC) [Entitic mass] 29.4 pg 26.0 - 34.0 pg [facility] MCHC (RBC) [Mass/Vol] 33.3 g/dL 30.5 - 36.0 g/dL [facility] MCV (RBC) [Entitic vol] 88.2 fL 80.0 - 100.0 fL [facility] Monocytes (Bld) [#/Vol] 0.45 10*3/uL NINF [facility] Monocytes/100 WBC (Bld) 7.9 % [facility] Neutrophils (Bld) [#/Vol] 3.53 10*3/uL [facility] Neutrophils/100 WBC (Bld) 62.3 % [facility] Nucleated RBC (Bld) [#/Vol] NINF [facility] Nucleated RBC/100 WBC (Bld) [Ratio] 0.0 % /100 WBC [facility] Platelet mean volume (Bld) [Entitic vol] 10.8 fL 9.0 - 12.7 fL [facility] Platelets (Bld) [#/Vol] 72 10*3/uL Low [facility] Comment on above: Results checked and verified.No clot detected. RBC (Bld) [#/Vol] 3.98 10*6/uL 3.90 - 5.20 m/uL [facility] WBC (Bld) [#/Vol] 5.67 10*3/uL [facility] CT Abdomen and Pelvis W cont rast Demarco 11-07-2023 IMPRESSION: 1. Mild splenomegaly, increased in size since 06/22/23. 2. Sfdy-aj-hxkeblpe abdominal lymphadenopathy, stable. 3. Increased streaky reticulation of the pelvic fat may represent post therapy changes or edema. 4. Previously noted thickening of the rectosigmoid colon wall is less conspicuous. 5. Sigmoid colon diverticulosis without evidence of diverticulitis. 6. Nonobstructing left renal stones. Transcribe Date/Time: Nov 07 2023 12:29P Dictated by: PAULETTE VALDIVIA MD This examination was interpreted and the report reviewed and electronically signed by: PAULETTE VALDIVIA MD on Nov 07 2023 1:15PM EST Thank you for allowing us to participate in the care of your patient. Should there be any questions regarding this interpretation, please call [phone]. If you are unable to reach us at the number above, please feel free to contact [facility] eRadiology at [phone]. DIVISION OF RADIOLOGY * * *Final Report* * * DATE OF EXAM: Nov 07 2023 9:31AM [facility] 0530 - CT ABD/PEL W IVCON / PROCEDURE REASON: Malignant neoplasm of descending colon (HCC) * * * * Physician Interpretation * * * * RESULT: EXAMINATION: CT ABDOMEN AND PELVIS WITH IV CONTRAST CLINICAL HISTORY: Colon cancer follow-up TECHNIQUE: CT of the abdomen and pelvis was performed using standard technique, scanning from just above the dome of the diaphragm to the symphysis pubis. MQ: CTAP_3 Contrast: IV: 150 ml of Omnipaque 300 Oral: 500 ml of Omni 240 10-25ml diluted with water CT Radiation dose: Integrated Dose-length product (DLP) for this visit = 1516 mGy*cm. CT Dose Reduction Employed: Automated exposure control (AEC) COMPARISON: PET/CT scan dated 07/13/23, CT abdomen dated 06/22/23, CT pelvis dated 07/06/23. RESULT: Liver: No mass. Biliary: No bile duct dilation. Cholelithiasis. Spleen: No mass. Mildly enlarged measuring 16-17 cm in length, previously 14 cm, increased. Pancreas: No mass or duct dilation. Adrenals: No mass. Kidneys: 1-2 mm nonobstructing left renal stones. No evidence of hydronephrosis or suspicious enhancing renal mass. GI tract: No evidence of bowel obstruction. Previously described wall thickening in the rectosigmoid colon is less conspicuous. Sigmoid colon diverticulosis is noted without evidence of diverticulitis. Lymph nodes: Abdominal lymphadenopathy, stable since 06/22/23. For example (short axis measurement): 1.2 cm gastrohepatic ligament (3:23), previously 1.0 cm 1.1 cm left paraceliac (3:34), previously 1.0 cm 2.0 cm portacaval (3:42), previously 1.8 cm 1.4 cm periportal (3:35), previously 1.3 cm Mesentery/Peritoneum: No ascites or mass. Retroperitoneum: No mass. Vasculature: - Abdominal aorta and iliac arteries: Atherosclerotic calcifications without aneurysm. - Celiac and SMA: Patent without stenosis. - Portal venous system (SMV, splenic vein, portal vein and branches): Patent with portosystemic venous collaterals. - Hepatic veins: Patent. Pelvis: No mass, ascites or fluid collection. Increased streaky reticulation of the pelvic fat (3:106) may represent post therapy changes or edema. Bones/Soft Tissues: Sclerotic foci in the right superior acetabulum and left proximal femur are stable, most likely bone islands. No new osseous abnormalities. Fat-containing umbilical hernia. Lower thorax: A chest CT performed will be reported separately. Tray Checker (topogram) images: No additional findings. DIVISION [facility] RADIOLOGY [facility] * * *Final Report* * * DATE OF EXAM: Nov 07 2023 9:31AM [facility] 0530 - CT ABD/PEL W IVCON / PROCEDURE REASON: Malignant neoplasm of descending colon (HCC) * * * * Physician Interpretation * * * * RESULT: EXAMINATION: CT ABDOMEN AND PELVIS WITH IV CONTRAST CLINICAL HISTORY: Colon cancer follow-up TECHNIQUE: CT of the abdomen and pelvis was performed using standard technique, scanning from just above the dome of the diaphragm to the symphysis pubis. MQ: CTAP_3 Contrast: IV: 150 ml of Omnipaque 300 Oral: 500 ml of Omni 240 10-25ml diluted with water CT Radiation dose: Integrated Dose-length product (DLP) for this visit = 1516 mGy*cm. CT Dose Reduction Employed: Automated exposure control (AEC) COMPARISON: PET/CT scan dated 07/13/23, CT abdomen dated 06/22/23, CT pelvis dated 07/06/23. RESULT: Liver: No mass. Biliary: No bile duct dilation. Cholelithiasis. Spleen: No mass. Mildly enlarged measuring 16-17 cm in length, previously 14 cm, increased. Pancreas: No mass or duct dilation. Adrenals: No mass. Kidneys: 1-2 mm nonobstructing left renal stones. No evidence of hydronephrosis or suspicious enhancing renal mass. GI tract: No evidence of bowel obstruction. Previously described wall thickening in the rectosigmoid colon is less conspicuous. Sigmoid colon diverticulosis is noted without evidence of diverticulitis. Lymph nodes: Abdominal lymphadenopathy, stable since 06/22/23. For example (short axis measurement): 1.2 cm gastrohepatic ligament (3:23), previously 1.0 cm 1.1 cm left paraceliac (3:34), previously 1.0 cm 2.0 cm portacaval (3:42), previously 1.8 cm 1.4 cm periportal (3:35), previously 1.3 cm Mesentery/Peritoneum: No ascites or mass. Retroperitoneum: No mass. Vasculature: - Abdominal aorta and iliac arteries: Atherosclerotic calcifications without aneurysm. - Celiac and SMA: Patent without stenosis. - Portal venous system (SMV, splenic vein, portal vein and branches): Patent with portosystemic venous collaterals. - Hepatic veins: Patent. Pelvis: No mass, ascites or fluid collection. Increased streaky reticulation of the pelvic fat (3:106) may represent post therapy changes or edema. Bones/Soft Tissues: Sclerotic foci in the right superior acetabulum and left proximal femur are stable, most likely bone islands. No new osseous abnormalities. Fat-containing umbilical hernia. Lower thorax: A chest CT performed will be reported separately. Tray Checker (topogram) images: No additional findings. IMPRESSION IMPRESSION: 1. Mild splenomegaly, increased in size since 06/22/23. 2. Albj-zp-dawdbpyk abdominal lymphadenopathy, stable. 3. Increased streaky reticulation of the pelvic fat may represent post therapy changes or edema. 4. Previously noted thickening of the rectosigmoid colon wall is less conspicuous. 5. Sigmoid colon diverticulosis without evidence of diverticulitis. 6. Nonobstructing left renal stones. Transcribe Date/Time: Nov 07 2023 12:29P Dictated by: PAULETTE VALDIVIA MD This examination was interpreted and the report reviewed and electronically signed by: PAULETTE VALDIVIA MD on Nov 07 2023 1:15PM EST Thank you for allowing us to participate in the care of your patient. Should there be any questions regarding this interpretation, please call [phone]. If you are unable to reach us at the number above, please feel free to contact [facility] eRadiology at [phone]. [facility] CT Abdomen and Pelvis W cont rast IVOrdered By: [facility] Provider on 11-07-2023 [facility] [address] Chest W contrast Demarco IMPRESSION: 1. Streaky scarring/discoid atelectasis in the left upper lobe, increased since 08/13/23. 2. Several subcentimeter nodular opacities measuring up to 8 mm, stable since 06/22/23. 3. Findings compatible with previous granulomatous disease. Transcribe Date/Time: Nov 07 2023 12:16P Dictated by: PAULETTE VALDIVIA MD This examination was interpreted and the report reviewed and electronically signed by: PAULETTE VALDIVIA MD on Nov 07 2023 1:14PM EST Thank you for allowing us to participate in the care of your patient. Should there be any questions regarding this interpretation, please call [phone]. If you are unable to reach us at the number above, please feel free to contact [facility] at [phone]. DIVISION OF RADIOLOGY * * *Final Report* * * DATE OF EXAM: Nov 07 2023 9:31AM [facility] 0539 - CT CHEST W IVCON / PROCEDURE REASON: Malignant neoplasm of descending colon (HCC) * * * * Physician Interpretation * * * * RESULT: EXAMINATION: CHEST CT WITH CONTRAST CLINICAL HISTORY: Colon cancer follow-up Technique: Spiral CT acquisition of the chest from the thoracic inlet to the upper abdomen following IV contrast. MQ: CTCW_6 Contrast: 150 mL Omnipaque [address] Radiation dose: Integrated Dose-length product (DLP) for this visit = 1516 mGy*cm CT Dose Reduction Employed: Automated exposure control (AEC) Comparison: CT chest dated 08/13/23, 06/22/23 RESULT: Limitations: None. Lines, tubes, and devices: Right-sided Port-A-Cath Lung parenchyma and airways: Punctate right lower lobe nodular opacity (4:76) was more clearly calcified on the prior study. Additional calcified granulomas are noted. Noncalcified subcentimeter nodular opacities and groundglass opacities measuring up to 7 mm, stable since 06/22/23. For example: Right lower lobe (4:122, 123) Left upper lobe (4:42) Streaky scarring/discoid atelectasis in the left upper lobe, increased. The central airways are patent. Pleural space: No pleural effusion. No pleural thickening. Lower neck, lymph nodes, and mediastinum: The imaged thyroid gland is normal. Calcified mediastinal and right hilar lymph nodes are identified. No evidence of enlarged noncalcified mediastinal lymph nodes. Heart, pericardium, and thoracic vessels: The thoracic aorta and main pulmonary artery are normal in caliber. The cardiac chambers are normal in size. Atherosclerotic coronary artery calcifications are noted. Mitral annular calcifications are noted. No pericardial effusion or thickening. Bones and soft tissues: No new osseous abnormalities. Upper abdomen: Please refer to the abdomen CT scan report for the abdomen findings. Tray Checker (topogram) images: No additional findings. DIVISION OF RADIOLOGY Provider, Billy Sharma - 11/07/2023 * * *Final Report* * * DATE OF EXAM: Nov 07 2023 9:31AM [facility] 0539 - CT CHEST W IVCON / PROCEDURE REASON: Malignant neoplasm of descending colon (HCC) * * * * Physician Interpretation * * * * RESULT: EXAMINATION: CHEST CT WITH CONTRAST CLINICAL HISTORY: Colon cancer follow-up Technique: Spiral CT acquisition of the chest from the thoracic inlet to the upper abdomen following IV contrast. MQ: CTCW_6 Contrast: 150 mL Omnipaque [address] Radiation dose: Integrated Dose-length product (DLP) for this visit = 1516 mGy*cm CT Dose Reduction Employed: Automated exposure control (AEC) Comparison: CT chest dated 08/13/23, 06/22/23 RESULT: Limitations: None. Lines, tubes, and devices: Right-sided Port-A-Cath Lung parenchyma and airways: Punctate right lower lobe nodular opacity (4:76) was more clearly calcified on the prior study. Additional calcified granulomas are noted. Noncalcified subcentimeter nodular opacities and groundglass opacities measuring up to 7 mm, stable since 06/22/23. For example: Right lower lobe (4:122, 123) Left upper lobe (4:42) Streaky scarring/discoid atelectasis in the left upper lobe, increased. The central airways are patent. Pleural space: No pleural effusion. No pleural thickening. Lower neck, lymph nodes, and mediastinum: The imaged thyroid gland is normal. Calcified mediastinal and right hilar lymph nodes are identified. No evidence of enlarged noncalcified mediastinal lymph nodes. Heart, pericardium, and thoracic vessels: The thoracic aorta and main pulmonary artery are normal in caliber. The cardiac chambers are normal in size. Atherosclerotic coronary artery calcifications are noted. Mitral annular calcifications are noted. No pericardial effusion or thickening. Bones and soft tissues: No new osseous abnormalities. Upper abdomen: Please refer to the abdomen CT scan report for the abdomen findings. Tray Checker (topogram) images: No additional findings. IMPRESSION IMPRESSION: 1. Streaky scarring/discoid atelectasis in the left upper lobe, increased since 08/13/23. 2. Several subcentimeter nodular opacities measuring up to 8 mm, stable since 06/22/23. 3. Findings compatible with previous granulomatous disease. Transcribe Date/Time: Nov 07 2023 12:16P Dictated by: PAULETTE VALDIVIA MD This examination was interpreted and the report reviewed and electronically signed by: PAULETTE VALDIVIA MD on Nov 07 2023 1:14PM EST Thank you for allowing us to participate in the care of your patient. Should there be any questions regarding this interpretation, please call [phone]. If you are unable to reach us at the number above, please feel free to contact [facility] eRadiology at [phone]. [facility] Comprehensive metabolic 2000 panelOrdered By: Lyudmila Kim on 11-07-2023 Albumin [Mass/Vol] 4.0 g/dL 3.9 - 4.9 g/dL [facility] ALP [Catalytic activity/Vol] 78 U/L 34 - 123 U/L [facility] ALT [Catalytic activity/Vol] 30 U/L 7 - 38 U/L [facility] Anion gap [Moles/Vol] 9 mmol/L 9 - 18 mmol/L [facility] AST [Catalytic activity/Vol] 37 U/L High 13 - 35 U/L [facility] Bilirubin [Mass/Vol] 0.4 mg/dL 0.2 - 1 .3 mg/dL [facility] Calcium [Mass/Vol] 9.5 mg/dL 8.5 - 10. 2 mg/dL [facility] Chloride [Moles/Vol] 109 mmol/L High 97 - 10 5 mmol/L [facility] CO2 [Moles/Vol] 26 mmol/L 22 - 30 mmol/L [facility] Creatinine [Mass/Vol] 0.85 mg/dL 0.58 - 0.96 mg/dL [facility] GFR/1.73 sq M.predicted among non-blacks MDRD (S/P/Bld) [Vol rate/Area] 77 mL/min/{1.73_m2} - PINF [facility] Comment on above: Estimated Glomerular Filtration Rate (eGFR) is calculated using the 2020 CKD-EPI creatinine equation. This equation utilizes serum creatinine, sex, and age as parameters. The creatinine assay has traceable calibration to isotope dilution-mass spectrometry. Refer to KDIGO guidelines for clinical interpretation. In patients with unstable renal function, e.g. those with acute kidney injury, the eGFR may not accurately reflect actual GFR. Glucose [Mass/Vol] 115 mg/dL High 74 - 99 mg/dL [facility] Comment on above: The [place] [employer] (ADA) provides guidance for cutoff values [...] Standards of Medical Care in Diabetes 2016, [place] [employer]. Diabetes Care. 2016.39(Suppl 1). Interpretation and review of laboratory results Abnormal [facility] Potassium [Moles/Vol] 4.2 mmol/L 3.7 - 5.1 mmol/L [facility] Protein [Mass/Vol] 6.9 g/dL 6.3 - 8.0 g/dL [facility] Sodium [Moles/Vol] 144 mmol/L 136 - 144 mmol/L [facility] Urea nitrogen [Mass/Vol] 12 mg/dL 7 - 21 mg/dL [facility] No Panel Informationon 11-07 Radiology Study observation (narrative) [facility] CBC W Auto Differential pane l (Bld)on 10-24-2023 Basophils (Bld) [#/Vol] 0.03 10*3/uL <0.11 k/uL [facility] Basophils/100 WBC (Bld) 0.7 % [facility] Differential cell count method Nom (Bld) Auto [facility] Eosinophils (Bld) [#/Vol] 0.21 10*3/uL <0.46 k/uL [facility] Eosinophils/100 WBC (Bld) 4.8 % [facility] Erythrocyte distribution width (RBC) [Ratio] 15.5 % High 11.5 - 15.0 % [facility] Hematocrit (Bld) [Volume fraction] 37.0 % 36.0 - 46.0 % [facility] Hemoglobin (Bld) [Mass/Vol] 12.2 g/dL 11.5 - 15.5 g/dL [facility] Immature granulocytes (Bld) [#/Vol] 0.03 10*3/uL <0.10 k/uL [facility] Immature granulocytes/100 WBC (Bld) 0.7 % [facility] Lymphocytes (Bld) [#/Vol] 1.55 10*3/uL 1.00 - 4.00 k/uL [facility] Lymphocytes/100 WBC (Bld) 35.3 % [facility] MCH (RBC) [Entitic mass] 28.5 pg 26.0 - 34.0 pg [facility] MCHC (RBC) [Mass/Vol] 33.0 g/dL 30.5 - 36.0 g/dL [facility] MCV (RBC) [Entitic vol] 86.4 fL 80.0 - 100.0 fL [facility] Monocytes (Bld) [#/Vol] 0.33 10*3/uL <0.87 k/uL [facility] Monocytes/100 WBC (Bld) 7.5 % [facility] Neutrophils (Bld) [#/Vol] 2.24 10*3/uL 1.45 - 7.50 k/uL [facility] Neutrophils/100 WBC (Bld) 51.0 % [facility] Nucleated RBC (Bld) [#/Vol] <0.01 k/uL [facility] Nucleated RBC/100 WBC (Bld) [Ratio] 0.0 /100 WBC [facility] Platelet mean volume (Bld) [Entitic vol] 11.3 fL 9.0 - 12.7 fL [facility] Platelets (Bld) [#/Vol] 81 10*3/uL Low 150 - 400 k/uL [facility] RBC (Bld) [#/Vol] 4.28 10*6/uL 3.90 - 5.20 m/uL [facility] WBC (Bld) [#/Vol] 4.39 10*3/uL 3.70 - 11.00 k/uL [facility] Comprehensive metabolic 2000 panelon 10-24-2023 Albumin [Mass/Vol] 4.1 g/dL 3.9 - 4.9 g/dL [facility] ALP [Catalytic activity/Vol] 78 U/L 34 - 123 U/L [facility] ALT [Catalytic activity/Vol] 31 U/L 7 - 38 U/L [facility] Anion gap [Moles/Vol] 10 mmol/L 9 - 18 mmol/L [facility] AST [Catalytic activity/Vol] 35 U/L 13 - 35 U/L [facility] Bilirubin [Mass/Vol] 0.2 mg/dL 0.2 - 1 .3 mg/dL [facility] Calcium [Mass/Vol] 9.7 mg/dL 8.5 - 10. 2 mg/dL [facility] Chloride [Moles/Vol] 107 mmol/L High 97 - 10 5 mmol/L [facility] CO2 [Moles/Vol] 26 mmol/L 22 - 30 mmol/L [facility] Creatinine [Mass/Vol] 0.84 mg/dL 0.58 - 0.96 mg/dL [facility] Estimated Glomerular Filtration Rate 78 mL/min/1.73m >=60 mL/min/1.7 3m [facility] Glucose [Mass/Vol] 150 mg/dL High 74 - 99 mg/dL [facility] Potassium [Moles/Vol] 4.4 mmol/L 3.7 - 5.1 mmol/L [facility] Protein [Mass/Vol] 7.1 g/dL 6.3 - 8.0 g/dL [facility] Sodium [Moles/Vol] 143 mmol/L 136 - 144 mmol/L [facility] Urea nitrogen [Mass/Vol] 10 mg/dL 7 - 21 mg/dL [facility] ANES POSTPROC EVALon 023 ANES POSTPROC EVAL HNO ID: [id number] Author: Fern Reynolds MD Service: Anesthesiology Author Type: Physician Type: Anesthesia Postprocedure Evaluation Filed: 08/22/2023 2:30 PM Note Text: POST ANESTHESIA EVALUATION NOTE : 1960 Procedure Summary Date: 08/22/23 Room / Location: GI TRAVEL [facility]ART / GI Anesthesia Start: 747 Anesthesia Stop: 918 Procedures: FLEX BRONCHOSCOPY W/ NAVIGATIONAL IMAGE GUIDANCE (Lung) BRONCHOSCOPY FLEXIBLE WITH C-ARM (Lung) BRONCHOSCOPY,RIGID/FLEXIBL E W/ FLUORO,W/ENDOBRONCHIAL ULTRASOUND (EBUS) GUIDED TRANSTRACHEAL/ TRANSBRONCHIAL ASPIRATION/BIOPSY,1 OR 2 MEDIASTINAL AND/OR HILAR LYMPH NODE STATIONS/STRUCTURES (Lung) Diagnosis: Lung nodule (Lung nodule [R91.1]) Surgeons: Dao Dixon MD Responsible Provider: eFrn Reynolds MD Anesthesia Type: general ASA Status: [...] August 22, 2023 TIME: 2:28 PM CSN: [id number] [facility] ANES PRE-OPon 08-22-2023 ANES PRE-OP HNO ID: [id number] Author: Fern Reynolds MD Service: Anesthesiology Author Type: Physician Type: Anesthesia Preprocedure Evaluation Filed: 08/22/2023 7:42 AM Note Text: ANESTHESIOLOGY DAY OF SURGERY NOTE : 1960 Procedure Information Date/Time: 08/22/23 6730 Procedures: FLEX BRONCHOSCOPY W/ NAVIGATIONAL IMAGE GUIDANCE (Lung) BRONCHOSCOPY FLEXIBLE WITH C-ARM (Lung) BRONCHOSCOPY,RIGID/FLEXIBL E W/ FLUORO,W/ENDOBRONCHIAL ULTRASOUND (EBUS) GUIDED TRANSTRACHEAL/ TRANSBRONCHIAL ASPIRATION/BIOPSY,1 OR 2 MEDIASTINAL AND/OR HILAR LYMPH NODE STATIONS/STRUCTURES (Lung) Location: GI TRAVEL CART / GI Surgeons: Dao Dixon MD Estimated body [...] and consent discussed: yes. Patient / Responsible [employer] agrees to proceed: yes Patient / [...] Medications as of 08/22/2023 Medication Sig - acetaminophen/diphenhydram ine (TYLENOL PM ORAL) Take 1 Dose by mouth as needed. - levothyroxine (SYNTHROID) 50 mcg tablet Take 50 mcg by mouth once daily. - omega 7-vrt-hly-fish oil 120-180-500 mg cap Take 500 mg [...] August 22, 2023 TIME: 7:21 AM CSN: [id number] [facility] CYTOLOGY NON-GYNon 3 ADEQUACY INTERPRETATION Normal [facility] Comment on above: Order Comment: Speci men Type: BLOOD SPECIMEN Ordering Facility: [facility] Address: [address] [place] [address] Result Comment: A: # 1,3,5: Non-diagnostic #2: Atypical cells present #4: Lesion cells present, favor low-grade neuroendocrine tumor Dr. Franklin Ku/Jose Gan Each letter in the above intra-procedural assessment refers to a unique site. The specific site is indicated in the final diagnosis portion of the report. Each number in this assessment references a discrete evaluation episode. Intra-procedural assessment performed at [facility], [address] [place] [address] Performed By: #### 2 [id number], , [id number] #### [facility] CLIA [id number] [address] [place] [address] [place] CASE REPORT Normal [facility] Comment on above: Order Comment: Speci men Type: BLOOD SPECIMEN Ordering Facility: [facility] Address: [address] [place] [address] Result Comment: [facility] Cytology Report Case: [id number] Authorizing Provider: Dao Dixon MD Collected: 08/22/2023 08:09 AM Ordering Location: [facility] Received: 08/22/2023 10:37 AM Endoscopy - ENDO Pathologist: Isai Ku MD Specimen: TRANSBRONCHIAL FINE-NEEDLE ASPIRATION, RIGHT LOWER LOBE, RIGHT LOWER LOBE NODULE Performed By: #### 2 4321-2, , 2776-09 #### [facility] CLIA [id number] [address] [place] [address] [place] CLINICAL HISTORY Colon adenocarcinoma Normal [facility] Comment on above: Order Comment: Speci men Type: BLOOD SPECIMEN Ordering Facility: [facility] Address: [address] [place] [address] Performed By: #### 2 4321-2, , 2776-09 #### [facility] CLIA [id number] [address] [place] [address] [place] DIAGNOSIS COMMENT Normal [facility] Comment on above: Order Comment: Speci men Type: BLOOD SPECIMEN Ordering Facility: [facility] Address: [address] [id number] Result Comment: The following immunohistochemical stains with [...] been determined by the performing laboratory within [facility]???s Fran Gomez [facility] Pathology and Laboratory Medicine [place] ([facility], [facility], [facility], [facility] [place], [facility], [facility], or [facility]) in a manner consistent with CLIA requirements. One or more of these tests have not been cleared or approved by the FDA. [facility] is regulated under CLIA as qualified to perform high-complexity testing. These tests are used for clinical purposes. They should not be regarded as investigational or for research. Positive and negative controls stain appropriately. Performed By: #### 2 4321-2, 07799-5, 2777-1 #### [facility] CLIA [id number] FINAL DIAGNOSIS Normal [facility] Comment on above: Order Comment: Fatou nava Type: BLOOD SPECIMEN Ordering Facility[facility] Address: [address] [id number] Result Comment: A - TRANSBRONCHIAL FINE-NEEDLE ASPIRATION, RIGHT LOWER LOBE - RIGHT LOWER LOBE NODULE Neoplastic cells present derived from low-grade neuroendocrine tumor (see comment). The following cell blocks were associated with this case: A1 Cell Block, Alcohol Fixed Performed By: #### 2 4321-2, 60403-8, 2777-1 #### [facility] CLIA [id number] [address] FINAL PERFORMING LAB Normal [facility] Comment on above: Order Comment: Speci men Type: BLOOD SPECIMEN Ordering Facility[facility] Address: [address] [place] [address] Result Comment: Tech nical component, truss driver helper screening performed at [facility], [address] [place] [address] CLIA# [id number] Diagnostic interpretation performed at [facility], [address] [place] [address] CLIA# [id number] Unhairing Machine Operator: Isai Ku M.D. Performed By: #### 2 4321-2, , 2776-09 #### [facility] CLIA [id number] [address] [place] [address] [place] GROSS DESCRIPTION Normal [facility] Comment on above: Order Comment: Speci men Type: BLOOD SPECIMEN Ordering Facility[facility] Address: [address] [place] [address] Result Comment: A. T RANSBRONCHIAL FINE-NEEDLE ASPIRATION, RIGHT LOWER LOBE 30 cc clear red CytoLyt with material. ThinPrep and Cell Block prepared and 10 smears (5 air dried and 5 fixed). Performed By: #### 2 4321-2, , 2776-09 #### [facility] CLIA [id number] [address] [place] [address] [place] ORDER COMMENT Normal [facility] Comment on above: Order Comment: Speci men Type: BLOOD SPECIMEN Ordering Facility[facility] Address: [address] [place] [address] Result Comment: Pre- op diagnosis: Lung nodule [R91.1] Performed By: #### 2 4321-2, , 2776-09 #### [facility] CLIA [id number] [address] [place] [address] [place] NURSING PROGon 08-22-2023 NURSING PROG HNO ID: [id number] Author: Mesha Luis, RN Service: Nursing Author Type: Registered Nurse [...] (RECOMMENDATION): None Electronically Signed By: Mesha Luis [facility] NURSING PROG HNO ID: [id number] Author: Radha Gee RN Service: ? Author Type: Registered Nurse Type: Nursing Progress Note Filed: 08/22/2023 7:09 AM Note Text: PATIENT EDUCATION TOPIC: PROCEDURE / SURGERY: Procedure/Surgery: Lung Vision PATIENT NAME: Nancy Sue PATIENT LOCATION: ENDO POOL/FV ENDO POOL READINESS TO LEARN COGNITIVE ABILITY: Alert and oriented MOTIVATION TO LEARN: Eager FAMILY SUPPORT: None - Unavailable/disinterested INSTRUCTION PROVIDED [...] (RECOMMENDATION): None Electronically Signed By: Radha Gee [facility] XR CHEST 1V FRONTALon 2022 XR [...] with real-time interoperative findings and procedure note. Template Clerk: PSCB Transcribe Date/Time: Aug 22 2023 9:22A Dictated by : PENELOPE JIN MD This examination was interpreted and the report reviewed and electronically signed by: PENELOPE JIN MD on Aug 22 2023 9:55AM EST [id number] [facility] BRIEF OP NOTon 08-15-2023 BRIEF OP NOT HNO ID: [id number] Author: Aydin Jerez MD Service: ? Author Type: Physician Type: Brief Op Note Filed: 08/15/2023 4:05 PM Note Text: BRIEF OP NOTE LOG ID: [id number] SURGERY/PROCEDURE DATE: 08/15/2023 INCISION/PROCEDURE START TIME: 3:49 PM INCISION CLOSE/PROCEDURE END TIME: 4:03 PM Surgeon(s)/Proceduralist(s ) and Professor Of English(s): Aydin Jerez MD -- IR Staff Procedure(s): Venous access port placement Sedation/Anesthesia: Moderate sedation Findings: Successful placement of a right-sided chest port via a patent right internal jugular vein. Estimated Blood Loss: Minimal Specimens: None Complications: None Pre-Op/Pre-Procedure Diagnosis/Indication: Colon cancer Post-Op/Post-Procedure Diagnosis/Indication: Same as pre-procedure SIGNATURE: Aydin Jerez MD PATIENT NAME: Nancy Sue DATE: August 15, 2023 TIME: 4:05 PM PAGER/CONTACT #: [phone] [facility] HISTORY PHYSICALon HISTORY PHYSICAL HNO ID: [id number] Author: Aydin Jerez MD Service: ? Author [...] DATE: August 15, 2023 TIME: 3:15 PM [facility] IR FLU GD YOSSI CVA PLACEon IR FLU GD YOSSI CVA PLACE * * *Final Report* * * DATE OF EXAM: Aug 15 2023 4:03PM [facility] 7444 - IR FLU GD YOSSI [...] adhesive Patient discharg (more content not included)... [facility] IR PORTOCATH PLACEMENTon IR PORTOCATH PLACEMENT * * *Final Report * * * DATE OF EXAM: Aug 15 2023 4:03PM [facility] 8966 - IR PORTOCATH PLACEMENT / [...] adhesive Patient discharge (more content not included)... [facility] US VASCULAR ACCESS GUIDEo n 08-15-2023 US VASCULAR ACCESS GUIDE * * *Final Report* * * DATE OF EXAM: Aug 15 2023 4:03PM [facility] 7765 - US VASCULAR ACCESS GUIDE / PROCEDURE REASON: Malignant [...] adhesive Patient disc (more content not included)... [facility] PT EDon 08-15-2023 PT ED HNO ID: [id number] Author: Yoni Doan RN Service: Nursing Author [...] (RECOMMENDATION): None Electronically Signed By: Yoni Doan [facility] CNOVon 08-13-2023 CNOV Office Visit (PUFAMO ) -- NANCY SUE ([id number]) 1960 F Date Time Provider Department 08/13/23 10:00 AM DAO DIXON During your visit today, we recorded the following information about you: Pulse Blood pressure Weight Height 77/minute 163/86 102.1 kg 1.626 m Dao Dixon MD 08/13/2023 10:36 AM Signed Interventional Pulmonary Consultation Date of Service: August 13, 2023 Patient: Nancy Sue Medical Record: [id number] Primary Care Physician: Justin Buckner MD Referring Provider: Dianne History of [...] no other significant medical history. Patient B/R [place]; a few jackson ago had a nursing home cold , with prolonged cough, went away [...] on File Prior to Visit Medication Sig acetaminophen/diphenhydram ine (TYLENOL PM ORAL) Take by mouth. iv [...] % rectal cream Refill(s) 0, as directed Hlzsv-5-AJB-EPA-Fish Oil (FISH OIL) 1,000 mg (120 mg-180 [...] and smooth (more content not included)... Normal [facility] CT CHEST WO IVCONon 08-13-20 CT [...] abdomen is otherwise stable without acute abnormality. Tray Checker (topogram) images: No additional findings. IMPRESSION: Stable to minimally increase in size of a 8 mm indeterminant right lower lobe nodule, previously 7 mm, which was not FDG avid on prior PET/CT. Additional sub-6 mm pulmonary nodules are unchanged. Continued attention on follow-up in 3 to 6 months is suggested. No thoracic lymphadenopathy. Template Clerk: PSCB Transcribe Date/Time: Aug 13 2023 12:20P Dictated by : VADIM FERREIRA MD This examination was interpreted and the report reviewed and electronically signed by: VADIM FERREIRA MD on Aug 13 2023 12:35PM EST [id number] Normal [facility] ECG COMPLETEon 08-13-2023 ECG COMPLETE Ventricular Rate : 6 7 BPM Atrial Rate : 67 BPM P-R Interval : 140 ms QRS Duration : 106 ms Q-T Interval : 420 ms QTC Calculation(Bazett) : 444 ms Calculated P Trinidad : 36 degrees Calculated R Trinidad : -66 degrees Calculated T Trinidad : 13 degrees Sinus rhythm Inferior infarct, old Abnormal ECG Confirmed by MD WOODWARD EMILE ([id number]) on 08/21/2023 1:22:11 PM NAME : NANCY SUE PID : [id number] : 1960 Gender : Female Race : ORD : [id number] Procedure Date : Aug 13 2023 08:09:07 Edit Date : Aug 21 2023 13:22:11 Diagnosis: Sinus rhythm Inferior infarct, old Abnormal ECG Confirmed by MD WOODWARD EMILE ([id number]) on 08/21/2023 1:22:11 PM Test Reason : HCS Location : 400 : [facility] Overread By : MD WOODWARD EMILE Edited By : MD WOODWARD EMILE Referred By : DAO DIXON Acquired by : CHELY RHODES Normal [facility] HISTORY PHYSICALon 3 HISTORY PHYSICAL HNO ID: [id number] Author: Dao Dixon MD Service: ? Author Type: Physician Type: HANDP Filed: 08/13/2023 10:36 AM Note Text: Interventional Pulmonary Consultation Date of Service: August 13, 2023 Patient: Nancy Sue Medical Record: [id number] Primary Care Physician: Justin Buckner MD Referring Provider: Dianne History of [...] no other significant medical history. Patient B/R [place]; a few jackson ago had a nursing home cold , with prolonged cough, went away [...] on File Prior to Visit Medication Sig acetaminophen/diphenhydram ine (TYLENOL PM ORAL) Take by mouth. iv [...] % rectal cream Refill(s) 0, as directed Xepty-5-MYE-EPA-Fish Oil (FISH OIL) 1,000 mg (120 mg-180 [...] That isabela (more content not included)... Normal [facility] CNPNon 08-10-2023 CNPN Telephone (AVXRPR) -- NANCY SUE ([id number]) 1960 F Date Time Provider Department 08/10/23 NYA STERLING AVXRPR During your visit today, we recorded the following information about you: Nya Sterling RN 08/10/2023 9:22 AM Signed You are scheduled for a port placement, On 08/15/2023. You are to arrive at 2 pm and Report to [facility]: Enter through [facility] entrance. Proceed to [...] Labs: Lab-work needs to be drawn? No.. Director Cardiology/Transportation: How will you be arriving for your procedure? Private car. You will need a responsible adult to accompany you to and from the procedure. please call [phone] with any questions __ Allergies As of Date: 08/10/2023 Noted Allergy Reaction CRESTOR (ROSUVASTATIN) 06/05/2023 17 - Myalgia JBXULEJ-HFS-DCR REDUCTASE INHIBIT*06/18/2022 14 - Other: See Comments 17 - Myalgia 16 - Unknown Comments: myalgias Date Reviewed: 07/20/2023 Reviewed by: Nena Jarquin Ma - Fully Assessed Prescriptions as of 08/10/2023 - acetaminophen/diphenhydram ine (TYLENOL PM ORAL) Take by mouth. - [...] rectal cream Refill(s) 0, as directed - Elemn-6-HZZ-EPA-Fish Oil (FISH OIL) 1,000 mg (120 mg-180 mg) cap Take 4,000 mg by mouth. Problem List As Of Date 08/10/2023 Noted Resolved Rectal cancer (HCC) [C20] 06/08/2023 Malignant neoplasm of sigmoid colon (HCC) [C18.*07/03/2023 Encounter Status:Closed [facility]AVXRPR[facility] -- NANCY SUE ([id number]) 1960 F Date Time Provider Department 08/09/23 VANGIE MONTEJO (RN) [facility] During your visit today, we recorded the following information about you: Vangie Montejo RN 08/09/2023 9:19 AM Signed Called patient to give pre procedure instructions, no answer left voice message with call back number. Allergies As of Date: 08/09/2023 Noted Allergy Reaction CRESTOR (ROSUVASTATIN) 06/05/2023 17 - Myalgia RAWCCVV-UXM-PEA REDUCTASE INHIBIT*06/18/2022 14 - Other: See Comments 17 - Myalgia 16 - Unknown Comments: myalgias Date Reviewed: 07/20/2023 Reviewed by: Nena Jarquin Ma - Fully Assessed Reason for Visit: Radiology Pre Procedure Instructions [1506] Prescriptions as of 08/09/2023 - acetaminophen/diphenhydram ine (TYLENOL PM ORAL) Take by mouth. - [...] rectal cream Refill(s) 0, as directed - Slbye-6-QRO-EPA-Fish Oil (FISH OIL) 1,000 mg (120 mg-180 mg) cap Take 4,000 mg by mouth. Problem List As Of Date 08/09/2023 Noted Resolved Rectal cancer (HCC) [C20] 06/08/2023 Malignant neoplasm of sigmoid colon (HCC) [C18.*07/03/2023 Encounter Status:Closed by VANGIE MONTEJO on 08/09/23 [facility] CBC W Auto Differential pane l (Bld)on 07-13-2023 Basophils (Bld) [#/Vol] 0.04 10*3/uL [facility] [place] Basophils/100 WBC (Bld) 0.8 % [facility] Differential cell count method Nom (Bld) Auto [facility] Eosinophils (Bld) [#/Vol] 0.23 10*3/uL [facility] [place] Eosinophils/100 WBC (Bld) 4.7 % [facility] Erythrocyte distribution width (RBC) [Ratio] 13.7 % 11.5 - 15.0 % [facility] Hematocrit (Bld) [Volume fraction] 39.6 % 36.0 - 46.0 % [facility] Hemoglobin (Bld) [Mass/Vol] 13.0 g/dL 11.5 - 15.5 g/dL [facility] Immature granulocytes (Bld) [#/Vol] [facility] [place] Immature granulocytes/100 WBC (Bld) 0.2 % [facility] Lymphocytes (Bld) [#/Vol] 2.25 10*3/uL [facility] Lymphocytes/100 WBC (Bld) 45.7 % [facility] MCH (RBC) [Entitic mass] 28.6 pg 26.0 - 34.0 pg [facility] MCHC (RBC) [Mass/Vol] 32.8 g/dL 30.5 - 36.0 g/dL [facility] MCV (RBC) [Entitic vol] 87.2 fL 80.0 - 100.0 fL [facility] Monocytes (Bld) [#/Vol] 0.30 10*3/uL [facility] [place] Monocytes/100 WBC (Bld) 6.1 % [facility] Neutrophils (Bld) [#/Vol] 2.09 10*3/uL [facility] Neutrophils/100 WBC (Bld) 42.5 % [facility] Nucleated RBC (Bld) [#/Vol] NINF [facility] Nucleated RBC/100 WBC (Bld) [Ratio] 0.0 % /100 WBC [facility] Platelet mean volume (Bld) [Entitic vol] 11.7 fL 9.0 - 12.7 fL [facility] Platelets (Bld) [#/Vol] 161 10*3/uL [facility] RBC (Bld) [#/Vol] 4.54 10*6/uL 3.90 - 5.20 m/uL [facility] WBC (Bld) [#/Vol] 4.92 10*3/uL [facility] Comprehensive metabolic 2000 panelOrdered By: Yevgeniy Kuo on 07-13-2023 Albumin [Mass/Vol] 4.8 g/dL 3.9 - 4.9 g/dL [facility] ALP [Catalytic activity/Vol] 70 U/L 34 - 123 U/L [facility] ALT [Catalytic activity/Vol] 36 U/L 7 - 38 U/L [facility] Anion gap [Moles/Vol] 10 mmol/L 9 - 18 mmol/L [facility] AST [Catalytic activity/Vol] 35 U/L 13 - 35 U/L [facility] Bilirubin [Mass/Vol] 0.3 mg/dL 0.2 - 1 .3 mg/dL [facility] Calcium [Mass/Vol] 9.4 mg/dL 8.5 - 10. 2 mg/dL [facility] Chloride [Moles/Vol] 104 mmol/L 97 - 10 5 mmol/L [facility] CO2 [Moles/Vol] 27 mmol/L 22 - 30 mmol/L [facility] Creatinine [Mass/Vol] 0.91 mg/dL 0.58 - 0.96 mg/dL [facility] GFR/1.73 sq M.predicted among non-blacks MDRD (S/P/Bld) [Vol rate/Area] 71 mL/min/{1.73_m2} - PINF [facility] Comment on above: Estimated Glomerular Filtration Rate (eGFR) is calculated using the 2020 CKD-EPI creatinine equation. This equation utilizes serum creatinine, sex, and age as parameters. The creatinine assay has traceable calibration to isotope dilution-mass spectrometry. Refer to KDIGO guidelines for clinical interpretation. In patients with unstable renal function, e.g. those with acute kidney injury, the eGFR may not accurately reflect actual GFR. Glucose [Mass/Vol] 107 mg/dL High 74 - 99 mg/dL [facility] Comment on above: The [place] Diab[employer] Association (ADA) provides guidance for cutoff values [...] Standards of Medical Care in Diabetes 2016, [place] [employer]. Diabetes Care. 2016.39(Suppl 1). Interpretation and review of laboratory results Abnormal [facility] Potassium [Moles/Vol] 4.2 mmol/L 3.7 - 5.1 mmol/L [facility] Protein [Mass/Vol] 7.3 g/dL 6.3 - 8.0 g/dL [facility] Sodium [Moles/Vol] 141 mmol/L 136 - 144 mmol/L [facility] Urea nitrogen [Mass/Vol] 20 mg/dL 7 - 21 mg/dL [facility] GLUCOSE, BLOOD (POC)on 07-13 Glucose [Mass/Vol] 113 mg/dL Abnormal 74 - 99 mg/dL [facility] Comment on above: Location:[facility], [address] [place] [address] , [place], [place], [address] The Accu-Chek Inform II glucose meter has not been approved for testing on patients receiving intensive medical intervention or therapy and results from this point of care glucose test should not be used for patient management decisions in these cases. Inaccurate results may also occur from other interfering factors, such as N-acetylcysteine (blood concentrations of greater than 5mg/dL), galactose, extremes of hematocrit (<10 or >65), or high doses of ascorbic acid (vitamin C) greater than 3mg/dL. Consider alternate testing mechanisms (e.g. core lab, blood gas instrument) in the above situations. Interpretation and review of laboratory results Abnormal [facility] PET+CT Guidance for localiza tion of tumor of Skull base to mid-thigh-- W 18F-FDG Demarco 07-13-2023 IMPRESSION: 1. HEAD and NECK: No evidence of focal uptake to suggest FDG avid neoplastic process.. 2. CHEST: No evidence of focal uptake to suggest FDG avid neoplastic process.. 0.7 cm right lower lobe lung nodule, below PET resolution, for follow-up. 3. ABDOMEN/PELVIS: Intense uptake along more than 7 cm of the sigmoid colon consistent with known primary, associated with mildly prominent with ijhp-qu-qxrwgnxu FDG uptake in upper mesenteric and retroperitoneal lymphadenopathy. 4. EXTREMITIES/SKELETON: No evidence of focal uptake to suggest FDG avid neoplastic process.. Transcribe Date/Time: Jul 13 2023 10:18A Dictated by: NATHANAEL BERNABE MD This examination was interpreted and the report reviewed and electronically signed by: NATHANAEL BERNABE MD on Jul 13 2023 10:44AM EST Thank you for allowing us to participate in the care of your patient. Should there be any questions regarding this interpretation, please call [phone]. If you are unable to reach us at the number above, please feel free to contact [facility] eRadiology at [phone]. DIVISION OF RADIOLOGY * * *Final Report* * * DATE OF EXAM: Jul 13 2023 10:01AM NRN [id number] - NM PET/CT SKULL-THIGH INIT / PROCEDURE REASON: multiple diagnoses * * * * Physician Interpretation * * * * RESULT: WHOLE [REGIONAL] BODY PET-CT SCAN CLINICAL HISTORY: Malignant neoplasm of the sigmoid colon. INDICATION: Initial treatment strategy. TECHNIQUE: PET-CT scan: Approximately 60 minutes following the IV administration of F-18 FDG (14.4 mCi of F-18 FDG), PET and non contrast CT images were acquired from the skull base through proximal thigh. PET images were reconstructed with and without attenuation correction using attenuation coefficients. The blood glucose level before FDG injection is 113 mg/dL CT Radiation dose: Integrated Dose-length product (DLP) for this visit = 319 mGy*cm. CT Dose Reduction Employed: Automatic exposure control used (AED) COMPARISON: FDG PET-CT: None CORRELATION: CT of the chest, abdomen and pelvis 06/22/2023 RESULTS: Liver SUV max 3.3 Mediastinal blood pool SUV max 2.4 Topogram review: Unremarkable, no acute findings. No retained foreign body. Head and Neck: No evidence of focal uptake to suggest FDG avid neoplastic process in the limited scanned region. No FDG avid cervical lymphadenopathy.. No significant anatomical abnormality to the limits of low dose noncontrast CT scan. Chest: No evidence of focal uptake to suggest FDG avid neoplastic process. Tiny calcified granuloma in the right lung base. 0.7 cm right lower lobe nodule with no abnormal uptake likely below PET resolution. No FDG avid axillary, mediastinal, or hilar lymphadenopathy. No significant anatomical abnormality to the limits of low dose noncontrast CT scan. Abdomen and Pelvis: Diffuse bowel FDG uptake likely physiologic, except for region of the sigmoid colon wall thickening and SUV max reaching 16.3 measuring more than 7 cm likely representing known primary.. Several mildly enlarged periceliac, periportal, and retroperitoneal lymph nodes appreciated, including 2.0 x 1.8 cm portacaval liver SUV max 2.6, 1.4 x 1.3 cm periceliac node with SUV max 2.9,, and left para-aortic upper retroperitoneal lymph node measuring 1.7 x 1.6 cm with SUV max 2.2. No suspicious liver or splenic lesions. Extremities/Skeleton: No evidence of focal uptake to suggest FDG avid neoplastic process. No evidence of suspicious bone lesions. No significant anatomical abnormality to the limits of low dose noncontrast CT scan. DIVISION OF RADIOLOGY Provider, [facility] - 07/13/2023 * * *Final Report* * * DATE OF EXAM: Jul 13 2023 10:01AM NRN [id number] - NM PET/CT SKULL-THIGH INIT / PROCEDURE REASON: multiple diagnoses * * * * Physician Interpretation * * * * RESULT: WHOLE [REGIONAL] BODY PET-CT SCAN CLINICAL HISTORY: Malignant neoplasm of the sigmoid colon. INDICATION: Initial treatment strategy. TECHNIQUE: PET-CT scan: Approximately 60 minutes following the IV administration of F-18 FDG (14.4 mCi of F-18 FDG), PET and non contrast CT images were acquired from the skull base through proximal thigh. PET images were reconstructed with and without attenuation correction using attenuation coefficients. The blood glucose level before FDG injection is 113 mg/dL CT Radiation dose: Integrated Dose-length product (DLP) for this visit = 319 mGy*cm. CT Dose Reduction Employed: Automatic exposure control used (AED) COMPARISON: FDG PET-CT: None CORRELATION: CT of the chest, abdomen and pelvis 06/22/2023 RESULTS: Liver SUV max 3.3 Mediastinal blood pool SUV max 2.4 Topogram review: Unremarkable, no acute findings. No retained foreign body. Head and Neck: No evidence of focal uptake to suggest FDG avid neoplastic process in the limited scanned region. No FDG avid cervical lymphadenopathy.. No significant anatomical abnormality to the limits of low dose noncontrast CT scan. Chest: No evidence of focal uptake to suggest FDG avid neoplastic process. Tiny calcified granuloma in the right lung base. 0.7 cm right lower lobe nodule with no abnormal uptake likely below PET resolution. No FDG avid axillary, mediastinal, or hilar lymphadenopathy. No significant anatomical abnormality to the limits of low dose noncontrast CT scan. Abdomen and Pelvis: Diffuse bowel FDG uptake likely physiologic, except for region of the sigmoid colon wall thickening and SUV max reaching 16.3 measuring more than 7 cm likely representing known primary.. Several mildly enlarged periceliac, periportal, and retroperitoneal lymph nodes appreciated, including 2.0 x 1.8 cm portacaval liver SUV max 2.6, 1.4 x 1.3 cm periceliac node with SUV max 2.9,, and left para-aortic upper retroperitoneal lymph node measuring 1.7 x 1.6 cm with SUV max 2.2. No suspicious liver or splenic lesions. Extremities/Skeleton: No evidence of focal uptake to suggest FDG avid neoplastic process. No evidence of suspicious bone lesions. No significant anatomical abnormality to the limits of low dose noncontrast CT scan. IMPRESSION IMPRESSION: 1. HEAD and NECK: No evidence of focal uptake to suggest FDG avid neoplastic process.. 2. CHEST: No evidence of focal uptake to suggest FDG avid neoplastic process.. 0.7 cm right lower lobe lung nodule, below PET resolution, for follow-up. 3. ABDOMEN/PELVIS: Intense uptake along more than 7 cm of the sigmoid colon consistent with known primary, associated with mildly prominent with [id number] FDG uptake in upper mesenteric and retroperitoneal lymphadenopathy. 4. EXTREMITIES/SKELETON: No evidence of focal uptake to suggest FDG avid neoplastic process.. Transcribe Date/Time: Jul 13 2023 10:18A Dictated by: NATHANAEL BERNABE MD This examination was interpreted and the report reviewed and electronically signed by: NATHANAEL BERNABE MD on Jul 13 2023 10:44AM EST Thank you for allowing us to participate in the care of your patient. Should there be any questions regarding this interpretation, please call [phone]. If you are unable to reach us at the number above, please feel free to contact [facility] eRadiology at [phone]. [facility] Radiology Study observation (narrative) [facility] PET+CT Guidance for localiza tion of tumor of Skull base to mid-thigh-- W [id number] IVOrdered By: Ccf Provider on 07-13-2023 [facility] CT Pelvis W contrast Demarco IMPRESSION: 1. Irregular circumferential distal sigmoid colonic wall thickening, extending over a length of 8 cm, compatible with known sigmoid colonic neoplasm. 2. No metastatic disease within the pelvis. Transcribe Date/Time: Jul 06 2023 11:40A Dictated by: CARLENE ROBLES MD This examination was interpreted and the report reviewed and electronically signed by: CARLENE ROBLES MD on Jul 06 2023 11:56AM EST Thank you for allowing us to participate in the care of your patient. Should there be any questions regarding this interpretation, please call [phone]. If you are unable to reach us at the number above, please feel free to contact [facility] eRadiology at [phone]. DIVISION OF RADIOLOGY * * *Final Report* * * DATE OF EXAM: Jul 06 2023 9:12AM [facility] 0555 - CT PELVIS W IVCON / PROCEDURE REASON: Malignant neoplasm of sigmoid colon (HCC) * * * * Physician Interpretation * * * * RESULT: EXAMINATION: CT PELVIS WITH IV CONTRAST CLINICAL HISTORY: Sigmoid colon cancer TECHNIQUE: CT of the pelvis was performed using standard technique, scanning from just above the iliac crests through the pelvic floor. Contrast: IV: 150 ml of Omnipaque 300 CT Radiation dose: Integrated Dose-length product (DLP) for this visit = 986 mGy*cm. CT Dose Reduction Employed: Automated exposure control (AEC) COMPARISON: CT abdomen 06/22/2023 RESULT: There is irregular circumferential distal sigmoid colonic wall thickening and increased mucosal enhancement over a length of 8 cm (series 2, image 46), compatible with the known sigmoid colonic neoplasm. There are more sigmoid colonic diverticula, without associated inflammation. No pelvic lymphadenopathy or fluid collection. The urinary bladder is unremarkable. Uterus is absent. No destructive lytic or blastic osseous abnormality. Degenerative changes involve the hips and lower lumbar spine Tray Checker (topogram) images: No additional findings. DIVISION OF RADIOLOGY Provider, [facility] - 07/06/2023 * * *Final Report* * * DATE OF EXAM: Jul 06 2023 9:12AM [facility] 0555 - CT PELVIS W IVCON / PROCEDURE REASON: Malignant neoplasm of sigmoid colon (HCC) * * * * Physician Interpretation * * * * RESULT: EXAMINATION: CT PELVIS WITH IV CONTRAST CLINICAL HISTORY: Sigmoid colon cancer TECHNIQUE: CT of the pelvis was performed using standard technique, scanning from just above the iliac crests through the pelvic floor. Contrast: IV: 150 ml of Omnipaque 300 CT Radiation dose: Integrated Dose-length product (DLP) for this visit = 986 mGy*cm. CT Dose Reduction Employed: Automated exposure control (AEC) COMPARISON: CT abdomen 06/22/2023 RESULT: There is irregular circumferential distal sigmoid colonic wall thickening and increased mucosal enhancement over a length of 8 cm (series 2, image 46), compatible with the known sigmoid colonic neoplasm. There are more sigmoid colonic diverticula, without associated inflammation. No pelvic lymphadenopathy or fluid collection. The urinary bladder is unremarkable. Uterus is absent. No destructive lytic or blastic osseous abnormality. Degenerative changes involve the hips and lower lumbar spine Tray Checker (topogram) images: No additional findings. IMPRESSION IMPRESSION: 1. Irregular circumferential distal sigmoid colonic wall thickening, extending over a length of 8 cm, compatible with known sigmoid colonic neoplasm. 2. No metastatic disease within the pelvis. Transcribe Date/Time: Jul 06 2023 11:40A Dictated by: CARLENE ROBLES MD This examination was interpreted and the report reviewed and electronically signed by: CARLENE ROBLES MD on Jul 06 2023 11:56AM EST Thank you for allowing us to participate in the care of your patient. Should there be any questions regarding this interpretation, please call [phone]. If you are unable to reach us at the number above, please feel free to contact [facility] eRadiology at [phone]. [facility] Radiology Study observation (narrative) [facility] CT Pelvis W contrast IVOrder ed By: Ccf Provider on 07-06-2023 [facility] CEA BLDon 07-02-2023 Carcinoembryonic Ag [Mass/Vol] 1.5 ng/mL <=2.9 ng/mL [facility] ERYTHROPOIETIN/EPOon 023 Erythropoietin (EPO) Qn 10.5 mIU/mL 2.6 - 18.5 mIU/mL [facility] FERRITIN BLDon 06-30-2023 Ferritin [Mass/Vol] 87.7 ng/mL 14.7 - 205.1 ng/mL [facility] FOLATE SERUMon 06-30-2023 Folate [Mass/Vol] 6.0 ng/mL >4.7 ng/mL [facility] Iron and Iron binding capaci ty panelon 06-30-2023 Iron [Mass/Vol] 53 ug/dL 41 - 186 ug/dL [facility] Iron binding capacity [Mass/Vol] 359 ug/dL 232 - 386 ug/dL [facility] Iron/TIBC [Molar ratio] 14.8 % Low 15.0 - 57.0 % [facility] VITAMIN B12 BLOODon 06-30-20 Cobalamin (Vitamin B12) [Mass/Vol] 422 pg/mL 232 - 1,245 pg/mL [facility] CBC W Auto Differential pane l (Bld)on 06-29-2023 Basophils (Bld) [#/Vol] 0.03 10*3/uL <0.11 k/uL [facility] Basophils/100 WBC (Bld) 0.7 % [facility] Differential cell count method Nom (Bld) Auto [facility] Eosinophils (Bld) [#/Vol] 0.16 10*3/uL <0.46 k/uL [facility] Eosinophils/100 WBC (Bld) 3.5 % [facility] Erythrocyte distribution width (RBC) [Ratio] 13.3 % 11.5 - 15.0 % [facility] Hematocrit (Bld) [Volume fraction] 37.5 % 36.0 - 46.0 % [facility] Hemoglobin (Bld) [Mass/Vol] 12.2 g/dL 11.5 - 15.5 g/dL [facility] Immature granulocytes (Bld) [#/Vol] <0.10 k/uL [facility] Immature granulocytes/100 WBC (Bld) 0.0 % [facility] Lymphocytes (Bld) [#/Vol] 1.84 10*3/uL 1.00 - 4.00 k/uL [facility] Lymphocytes/100 WBC (Bld) 40.5 % [facility] MCH (RBC) [Entitic mass] 28.7 pg 26.0 - 34.0 pg [facility] MCHC (RBC) [Mass/Vol] 32.5 g/dL 30.5 - 36.0 g/dL [facility] MCV (RBC) [Entitic vol] 88.2 fL 80.0 - 100.0 fL [facility] Monocytes (Bld) [#/Vol] 0.28 10*3/uL <0.87 k/uL [facility] Monocytes/100 WBC (Bld) 6.2 % [facility] Neutrophils (Bld) [#/Vol] 2.23 10*3/uL 1.45 - 7.50 k/uL [facility] Neutrophils/100 WBC (Bld) 49.1 % [facility] Nucleated RBC (Bld) [#/Vol] <0.01 k/uL [facility] Nucleated RBC/100 WBC (Bld) [Ratio] 0.0 /100 WBC [facility] Platelet mean volume (Bld) [Entitic vol] 10.9 fL 9.0 - 12.7 fL [facility] Platelets (Bld) [#/Vol] 139 10*3/uL Low 150 - 400 k/uL [facility] RBC (Bld) [#/Vol] 4.25 10*6/uL 3.90 - 5.20 m/uL [facility] WBC (Bld) [#/Vol] 4.54 10*3/uL 3.70 - 11.00 k/uL [facility] Comprehensive metabolic 2000 panelon 06-29-2023 Albumin [Mass/Vol] 4.3 g/dL 3.9 - 4.9 g/dL [facility] ALP [Catalytic activity/Vol] 67 U/L 34 - 123 U/L [facility] ALT [Catalytic activity/Vol] 30 U/L 7 - 38 U/L [facility] Anion gap [Moles/Vol] 11 mmol/L 9 - 18 mmol/L [facility] AST [Catalytic activity/Vol] 34 U/L 13 - 35 U/L [facility] Bilirubin [Mass/Vol] 0.4 mg/dL 0.2 - 1 .3 mg/dL [facility] Calcium [Mass/Vol] 9.4 mg/dL 8.5 - 10. 2 mg/dL [facility] Chloride [Moles/Vol] 105 mmol/L 97 - 10 5 mmol/L [facility] CO2 [Moles/Vol] 27 mmol/L 22 - 30 mmol/L [facility] Creatinine [Mass/Vol] 0.86 mg/dL 0.58 - 0.96 mg/dL [facility] Estimated Glomerular Filtration Rate 76 mL/min/1.73m >=60 mL/min/1.7 3m [facility] Glucose [Mass/Vol] 112 mg/dL High 74 - 99 mg/dL [facility] Potassium [Moles/Vol] 4.4 mmol/L 3.7 - 5.1 mmol/L [facility] Protein [Mass/Vol] 6.9 g/dL 6.3 - 8.0 g/dL [facility] Sodium [Moles/Vol] 143 mmol/L 136 - 144 mmol/L [facility] Urea nitrogen [Mass/Vol] 12 mg/dL 7 - 21 mg/dL [facility] RETIC COUNTon 06-29-2023 Reticulocytes (Bld) [#/Vol] 0.08350 10*3/uL 0.018 - 0.100 M/uL [facility] Reticulocytes (Bld) [#/Vol]o n 06-29-2023 Reticulocytes/100 RBC (Bld) 1.6 % 0.4 - 2.0 % [facility] CT Abdomen W contrast Demarco 1 IMPRESSION: 1. Mild upper abdominal mesenteric and retroperitoneal adenopathy, as above. Correlation with follow-up examinations is recommended given the patient's history. 2. Mild, diffuse hepatic steatosis is noted. 3. Mild splenomegaly, as detailed above. 4. A small amount of cholelithiasis is appreciated. Transcribe Date/Time: Jun 22 2023 10:31A Dictated by: ANNY JIMENEZ MD This examination was interpreted and the report reviewed and electronically signed by: ANNY JIMENEZ MD on Jun 22 2023 1:30PM EST Thank you for allowing us to participate in the care of your patient. Should there be any questions regarding this interpretation, please call [phone]. If you are unable to reach us at the number above, please feel free to [facility] at [phone]. DIVISION OF RADIOLOGY * * *Final Report* * * DATE OF EXAM: Jun 22 2023 8:49AM [facility] 0533 - CT ABDOMEN W IVCON / PROCEDURE REASON: Rectal cancer (HCC) * * * * Physician Interpretation * * * * RESULT: EXAMINATION: CT ABDOMEN WITH IV CONTRAST CLINICAL HISTORY: Rectal carcinoma TECHNIQUE: CT of the abdomen was performed using standard technique, scanning from just above the dome of the diaphragm to the iliac crest. MQ: CTAbdW_4 Contrast: IV: 150 ml of Omnipaque 300 Oral: 500 ml of Omni 240 10-25ml diluted with water CT Radiation dose: Integrated Dose-length product (DLP) for this visit = 1605 mGy*cm. CT Dose Reduction Employed: mAs-kVp adjusted based on patient size-age COMPARISON: None. RESULT: Liver: Mild, diffuse hepatic steatosis. No mass. Biliary Tract: No bile duct dilation. A small amount of cholelithiasis is noted. Spleen: Mild splenomegaly, the spleen measures approximately 13.4 cm in maximal craniocaudal length. No mass. Pancreas: No mass or ductal dilatation. Adrenal glands: No mass. Kidneys: No enhancing mass or hydronephrosis. GI Tract: No bowel wall thickening or dilation. Lymph nodes: Several mildly enlarged periceliac/periportal lymph [...] and gastrohepatic ligament lymph nodes are identified. Mesentery/Peritoneum: No ascites or mass. Retroperitoneum: No mass. Vasculature: - Abdominal aorta and iliac arteries: Atherosclerotic calcifications without aneurysm. - Celiac and SMA: Patent. - Portal venous system (SMV, splenic vein, portal vein and branches): Patent. - Hepatic veins: Patent. Bones/Soft Tissues: Degenerative change involving the lumbar spine. Small fat-containing periumbilical abdominal hernia is noted. Lower Thorax: A CT examination of the chest has been performed concurrently and will be dictated separately. Tray Checker (topogram) images: No additional findings. DIVISION OF RADIOLOGY Provider, [facility] - 06/22/2023 * * *Final Report* * * DATE OF EXAM: Jun 22 2023 8:49AM [facility] 0533 - CT ABDOMEN W IVCON / PROCEDURE REASON: Rectal cancer (HCC) * * * * Physician Interpretation * * * * RESULT: EXAMINATION: CT ABDOMEN WITH IV CONTRAST CLINICAL HISTORY: Rectal carcinoma TECHNIQUE: CT of the abdomen was performed using standard technique, scanning from just above the dome of the diaphragm to the iliac crest. MQ: CTAbdW_4 Contrast: IV: 150 ml of Omnipaque 300 Oral: 500 ml of Omni 240 10-25ml diluted with water CT Radiation dose: Integrated Dose-length product (DLP) for this visit = 1605 mGy*cm. CT Dose Reduction Employed: mAs-kVp adjusted based on patient size-age COMPARISON: None. RESULT: Liver: Mild, diffuse hepatic steatosis. No mass. Biliary Tract: No bile duct dilation. A small amount of cholelithiasis is noted. Spleen: Mild splenomegaly, the spleen measures approximately 13.4 cm in maximal craniocaudal length. No mass. Pancreas: No mass or ductal dilatation. Adrenal glands: No mass. Kidneys: No enhancing mass or hydronephrosis. GI Tract: No bowel wall thickening or dilation. Lymph nodes: Several mildly enlarged periceliac/periportal lymph [...] and gastrohepatic ligament lymph nodes are identified. Mesentery/Peritoneum: No ascites or mass. Retroperitoneum: No mass. Vasculature: - Abdominal aorta and iliac arteries: Atherosclerotic calcifications without aneurysm. - Celiac and SMA: Patent. - Portal venous system (SMV, splenic vein, portal vein and branches): Patent. - Hepatic veins: Patent. Bones/Soft Tissues: Degenerative change involving the lumbar spine. Small fat-containing periumbilical abdominal hernia is noted. Lower Thorax: A CT examination of the chest has been performed concurrently and will be dictated separately. Tray Checker (topogram) images: No additional findings. IMPRESSION IMPRESSION: 1. Mild upper abdominal mesenteric and retroperitoneal adenopathy, as above. Correlation with follow-up examinations is recommended given the patient's history. 2. Mild, diffuse hepatic steatosis is noted. 3. Mild splenomegaly, as detailed above. 4. A small amount of cholelithiasis is appreciated. Transcribe Date/Time: Jun 22 2023 10:31A Dictated by: ANNY JIMENEZ MD This examination was interpreted and the report reviewed and electronically signed by: ANNY JIMENEZ MD on Jun 22 2023 1:30PM EST Thank you for allowing us to participate in the care of your patient. Should there be any questions regarding this interpretation, please call [phone]. If you are unable to reach us at the number above, please feel free to contact [facility] eRadiology at [phone]. [facility] CT Chest W contrast Demarco IMPRESSION: 1. Right lower lobe subcentimeter pulmonary nodules, larger measuring 0.7 cm. Correlation with follow-up examinations is recommended, as the possibility of metastases is not excluded. 2. No substantial intrathoracic adenopathy is appreciated. Transcribe Date/Time: Jun 22 2023 10:21A Dictated by: ANNY JIMENEZ MD This examination was interpreted and the report reviewed and electronically signed by: ANNY JIMENEZ MD on Jun 22 2023 1:29PM EST Thank you for allowing us to participate in the care of your patient. Should there be any questions regarding this interpretation, please call [phone]. If you are unable to reach us at the number above, please feel free to contact [facility]Radiology at [phone]. DIVISION OF RADIOLOGY * * *Final Report* * * DATE OF EXAM: Jun 22 2023 8:49AM [facility] 0539 - CT CHEST W IVCON / PROCEDURE REASON: Rectal cancer (HCC) * * * * Physician Interpretation * * * * RESULT: EXAMINATION: CHEST CT WITH CONTRAST CLINICAL HISTORY: Rectal carcinoma Technique: Spiral CT acquisition of the chest from the thoracic inlet to the upper abdomen following IV contrast. MQ: CTCW_6 Contrast: 150 mL Omnipaque [address] Radiation dose: Integrated Dose-length product (DLP) for this visit = 1605 mGy*cm CT Dose Reduction Employed: mAs-kVp adjusted based on patient size-age Comparison: None. RESULT: Limitations: None. Lines, tubes, and devices: None. Lung parenchyma , airways, and pleural space: No consolidative process or pleural effusion. The trachea and major airways appear patent. No consolidative process or pleural effusion. The trachea and major airways appear patent. 0.7 cm soft tissue density nodule within the medial right lower lobe, image 123, series 4 is appreciated. 0.5 cm groundglass nodule within the posterior right lower lobe, image 121, series 4 is noted. Densely calcified posterior right lower lobe granuloma is noted. Lower neck, lymph nodes, and mediastinum: The visualized thyroid gland is unremarkable. No substantial supraclavicular or axillary lymphadenopathy is identified. Partially calcified subcentimeter anterior mediastinal lymph node measures 6 mm in short axis, image 55, series 3. Subcarinal and right hilar granulomatous calcification is identified. No substantial mediastinal or hilar adenopathy is identified. Heart, pericardium, and thoracic vessels: The thoracic aorta is normal in caliber. Coronary artery calcification is noted. No substantial pericardial effusion. Bones/Soft Tissues: Degenerative change involving the thoracic spine is appreciated. No osseous destructive process. Tray Checker (topogram) images: No additional findings. DIVISION OF RADIOLOGY Provider, [facility] - 06/22/2023 * * *Final Report* * * DATE OF EXAM: Jun 22 2023 8:49AM [facility] 0539 - CT CHEST W IVCON / PROCEDURE REASON: Rectal cancer (HCC) * * * * Physician Interpretation * * * * RESULT: EXAMINATION: CHEST CT WITH CONTRAST CLINICAL HISTORY: Rectal carcinoma Technique: Spiral CT acquisition of the chest from the thoracic inlet to the upper abdomen following IV contrast. MQ: CTCW_6 Contrast: 150 mL Omnipaque [address] Radiation dose: Integrated Dose-length product (DLP) for this visit = 1605 mGy*cm CT Dose Reduction Employed: mAs-kVp adjusted based on patient size-age Comparison: None. RESULT: Limitations: None. Lines, tubes, and devices: None. Lung parenchyma , airways, and pleural space: No consolidative process or pleural effusion. The trachea and major airways appear patent. No consolidative process or pleural effusion. The trachea and major airways appear patent. 0.7 cm soft tissue density nodule within the medial right lower lobe, image 123, series 4 is appreciated. 0.5 cm groundglass nodule within the posterior right lower lobe, image 121, series 4 is noted. Densely calcified posterior right lower lobe granuloma is noted. Lower neck, lymph nodes, and mediastinum: The visualized thyroid gland is unremarkable. No substantial supraclavicular or axillary lymphadenopathy is identified. Partially calcified subcentimeter anterior mediastinal lymph node measures 6 mm in short axis, image 55, series 3. Subcarinal and right hilar granulomatous calcification is identified. No substantial mediastinal or hilar adenopathy is identified. Heart, pericardium, and thoracic vessels: The thoracic aorta is normal in caliber. Coronary artery calcification is noted. No substantial pericardial effusion. Bones/Soft Tissues: Degenerative change involving the thoracic spine is appreciated. No osseous destructive process. Tray Checker (topogram) images: No additional findings. IMPRESSION IMPRESSION: 1. Right lower lobe subcentimeter pulmonary nodules, larger measuring 0.7 cm. Correlation with follow-up examinations is recommended, as the possibility of metastases is not excluded. 2. No substantial intrathoracic adenopathy is appreciated. Transcribe Date/Time: Jun 22 2023 10:21A Dictated by: ANNY JIMENEZ MD This examination was interpreted and the report reviewed and electronically signed by: ANNY JIMENEZ MD on Jun 22 2023 1:29PM EST Thank you for allowing us to participate in the care of your patient. Should there be any questions regarding this interpretation, please call [phone]. If you are unable to reach us at the number above, please feel free to contact [facility] eRadiology at [phone]. [facility] Panel InformationOrdered By: Ccf Provider on 06-22-2023 [facility] No Panel Informationon 06-22 Radiology Study observation (narrative) [facility] SIGMOIDOSCOPYon 06-08-2023 [facility] MG MAMM SCREEN 3D HUDSON CADon 11-29-2022 MG MAMM SCREEN 3D HUDSON CAD Patient: NANCY SUE Exam Date: 11/29/2022 : 1960 Gender:F Ordering : DR JUSTIN BUCKNER . Admission #: [id number] Family : Order #: [id number] CLICK HERE TO VIEW EXAM RADIOLOGY REPORT [...] breast cancer at age 74. LOCATION: [facility] BREAST COMPOSITION: Scattered areas fibroglandular density. FINDINGS: [...] M.D. on 11/29/2022 at 13:07 Normal [facility] CELIAC ANTIBODIES PROFILEon 08-23-2022 Deamidated Gliadin Abs, IgA 3 units Normal 0-19 [facility] Comment on above: Result Comment: Nega tive 0 - 19 Weak Positive 20 - 30 Moderate to Strong Positive >30 Performed By: #### C ELIAC #### [facility] [address] [place] [address] Dr. Donovan Cruz Deamidated Gliadin Abs, IgG 2 units Normal 0-19 [facility] Comment on above: Result Comment: Nega tive 0 - 19 Weak Positive 20 - 30 Moderate to Strong Positive >30 Performed By: #### C ELIACP #### [facility] [address] [place] [address] Dr. Donovan Cruz Endomysial Antibody IgA Negative Normal Negative [facility] Comment on above: Performed By: #### C ELIACP #### [facility] [address] [address] [address] Donovan Cruz Immunoglobulin A, Qn, Serum 117 mg/dL Normal 87-352 [facility] Comment on above: Performed By: #### C ELIACP #### [facility] [address] [place] [address] Dr. Donovan Cruz t-Transglutaminase (tTG) IgA <2 Normal 0-3 [facility] Comment on above: Result Comment: Nega tive 0 - 3 Weak Positive 4 - 10 Positive >10 . Tissue Transglutaminase (tTG) has been identified as the endomysial antigen. Studies have demonstr- ated that endomysial IgA antibodies have over 99% specificity for gluten sensitive enteropathy. Performed By: #### C ELIACP #### [facility] [address] [place] [address] Dr. Donovan Cruz t-Transglutaminase (tTG) IgG <2 Normal 0-5 [facility] Comment on above: Result Comment: Nega tive 0 - 5 Weak Positive 6 - 9 Positive >9 Performed By: #### C ELIACP #### [facility] [address] [place] [address] Dr. Donovan Cruz HEPATITIS PANEL, ACUTEon HBsAg Screen Negative Normal Negative [facility] Comment on above: Performed By: #### H EPACUT #### [facility] [address] [place] [address] Dr. Donovan Cruz HCV AB <0.1 Normal 0.0-0.9 [facility] Comment on above: Performed By: #### H EPACUT #### [facility] [address] [place], [place] [id number] Dr. Donovan Cruz Hep A Ab, IgM Negative Normal Negative [facility] Comment on above: Performed By: #### H EPACUT #### [facility] [address] [place] [address] Dr. Donovan Cruz Hep B Core Ab, IgM Negative Normal Negative [facility] Comment on above: Performed By: #### H EPACUT #### [facility] [address] [place] [address] Dr. Donovan Cruz Interpretation: Comment Normal [facility] Comment on above: Result Comment: Nega tive Not infected with HCV, unless recent infection is suspected or other evidence exists to indicate HCV infection. Performed By: #### H EPACUT #### [facility] [address] [place] [address] Dr. Donovan Cruz FREE T3on 08-22-2022 FREE T3 2.19 pg/mlL Normal 2.18-3.98 [facility] Comment on above: Performed By: #### C BC #### [facility] [address] [place] [address] Dr. Donovan Cruz PROF 14(COMP METB)on 022 Albumin [Mass/Vol] 3.5 g/dL Normal 3.4-5.0 [facility] Comment on above: Performed By: #### T 4, FT3, CMP, TSH #### [facility] [address] [place] [address] Dr. Donovan Cruz Albumin/Globulin [Mass ratio] 1.0 {ratio} Normal [facility] Comment on above: Performed By: #### T 4, FT3, CMP, TSH #### [facility] [address] [place] [address] Dr. Donovan Cruz ALP [Catalytic activity/Vol] 68 U/L Normal 46-116 [facility] Comment on above: Performed By: #### T 4, FT3, CMP, TSH #### [facility] [address] [place] [address] Dr. Donovan Cruz ALT [Catalytic activity/Vol] 70 U/L Critically high 14-59 [facility] Comment on above: Performed By: #### T 4, FT3, CMP, TSH #### [facility] [address] [address] [address] Donovan Cruz Anion gap [Moles/Vol] 12.7 mmol/L Normal [facility] Comment on above: Performed By: #### T 4, FT3, CMP, TSH #### [facility] [address] [address] [address] Donovan Cruz AST [Catalytic activity/Vol] 42 U/L Critically high 15-37 [facility] Comment on above: Performed By: #### T 4, FT3, CMP, TSH #### [facility] [address] [place] [address] Dr. Donovan Cruz Bilirubin [Mass/Vol] 0.4 mg/dL Normal 0.2-1.0 [facility] Comment on above: Performed By: #### T 4, FT3, CMP, TSH #### [facility] [address] [place] [address] Dr. Donovan Cruz Calcium [Mass/Vol] 8.8 mg/dL Normal 8.5-10.1 [facility] Comment on above: Performed By: #### T 4, FT3, CMP, TSH #### [facility] [address] [place] [address] Dr. Donovan Cruz Chloride [Moles/Vol] 102 mmol/L Normal 98-107 [facility] Comment on above: Performed By: #### T 4, FT3, CMP, TSH #### [facility] [address] [place] [address] Dr. Donovan Cruz CO2 [Moles/Vol] 29.6 mmol/L Normal 21.0-32.0 [facility] Comment on above: Performed By: #### T 4, FT3, CMP, TSH #### [facility] [address] [place] [address] Dr. Donovan Cruz Creatinine [Mass/Vol] 0.91 mg/dL Normal 0.55-1.02 [facility] Comment on above: Performed By: #### T 4, FT3, CMP, TSH #### [facility] [address] [address] [address] Donovan Cruz EGFR-AF ERITREAN >60 Normal >=60 [facility] Comment on above: Performed By: #### T 4, FT3, CMP, TSH #### [facility] [address] [address] [address] Donovan Cruz EGFR-NON AF ERITREAN >60 Normal >=60 [facility] Comment on above: Performed By: #### T 4, FT3, CMP, TSH #### [facility] [address] [address] [address] Donovan Cruz Globulin (S) [Mass/Vol] 3.5 g/dL Normal [facility] Comment on above: Performed By: #### T 4, FT3, CMP, TSH #### [facility] [address] [place] [address] Dr. Donovan Cruz Glucose [Mass/Vol] 116 mg/dL Critically high 74-106 [facility] Comment on above: Performed By: #### T 4, FT3, CMP, TSH #### [facility] [address] [address] [address] Donovan Cruz Potassium [Moles/Vol] 4.3 mmol/L Normal 3.5-5.1 [facility] Comment on above: Performed By: #### T 4, FT3, CMP, TSH #### [facility] [address] [place] [address] Dr. Donovan Cruz Protein [Mass/Vol] 7.0 g/dL Normal 6.4-8.2 [facility] Comment on above: Performed By: #### T 4, FT3, CMP, TSH #### [facility] [address] [address] [address] Donovan Cruz Sodium [Moles/Vol] 140 mmol/L Normal 136-145 [facility] Comment on above: Performed By: #### T 4, FT3, CMP, TSH #### [facility] [address] [place] [address] Dr. Donovan Cruz Urea nitrogen [Mass/Vol] 14.0 mg/dL Normal 7.0-18.0 [facility] Comment on above: Performed By: #### T 4, FT3, CMP, TSH #### [facility] [address] [place] [address] Dr. Donovan Cruz Urea nitrogen/Creatinine [Mass ratio] 15.4 mg/mg Normal [facility] Comment on above: Performed By: #### T 4, FT3, CMP, TSH #### [facility] [address] [place] [address] Dr. Donovan Cruz T4on 08-22-2022 T4 [Mass/Vol] 9.30 ug/dL Normal 4.80-13.90 [facility] Comment on above: Performed By: #### T 4, FT3, CMP, TSH #### [facility] [address] [place] [address] Dr. Donovan Cruz TSHon 08-22-2022 TSH 2.470 uIU/mL Normal 0.358-3.74 0 [facility] Comment on above: Performed By: #### C BC #### [facility] [address] [place] [address] Dr. Donovan Cruz CBC AUTO DIFFon 07-07-2022 BASO # 0.0 103/ul Normal 0.0-0.1 [facility] Comment on above: Performed By: #### C BC #### [facility] [address] [place] [address] Dr. Donovan Cruz Basophils/100 WBC (Bld) 0.4 % Normal 0.2-2.0 [facility] Comment on above: Performed By: #### C BC #### [facility] [address] [place] [address] Dr. Donovan Cruz EO # 0.2 103/ul Normal 0.0-0.7 [facility] Comment on above: Performed By: #### C BC #### [facility] [address] [place] [address] Dr. Donovan Cruz Eosinophils/100 WBC (Bld) 3.6 % Normal 0.9-7.0 [facility] Comment on above: Performed By: #### C BC #### [facility] [address] [place] [address] Dr. Donovan Cruz Erythrocyte distribution width (RBC) [Ratio] 12.8 % Normal 11.0-15.0 [facility] Comment on above: Performed By: #### C BC #### [facility] [address] [place] [address] Dr. Donovan Cruz Hematocrit (Bld) [Volume fraction] 39.7 % Normal 36.0-48.0 [facility] Comment on above: Performed By: #### C BC #### [facility] [address] [place] [address] Dr. Donovan Cruz Hemoglobin (Bld) [Mass/Vol] 13.3 g/dL Normal 12.0-16.0 [facility] Comment on above: Performed By: #### C BC #### [facility] [address] [place] [address] Dr. Donovan Cruz IG # 0.01 10e3/ul Normal 0.00-0.03 [facility] Comment on above: Performed By: #### C BC #### [facility] [address] [place] [address] Dr. Donovan Cruz IG % 0.2 % Normal 0.0-0.5 [facility] Comment on above: Performed By: #### C BC #### [facility] [address] [place] [address] Dr. Donovan Cruz LYMPH # 2.2 103/ul Normal 1.2-3.8 [facility] Comment on above: Performed By: #### C BC #### [facility] [address] [place] [address] Dr. Donovan Cruz Lymphocytes/100 WBC (Bld) 45.1 % Normal 20.5-60.0 [facility] Comment on above: Performed By: #### C BC #### [facility] [address] [place] [address] Dr. Donovan Cruz MANUAL DIFF REQ NO Normal [facility] Comment on above: Performed By: #### C BC #### [facility] [address] [place] [address] Dr. Donovan Cruz MCH (RBC) [Entitic mass] 30.4 pg Normal 26.7-34.0 [facility] Comment on above: Performed By: #### C BC #### [facility] [address] [place] [address] Dr. Donovan Cruz MCHC (RBC) [Mass/Vol] 33.5 g/dL Normal 29.9-35.2 [facility] Comment on above: Performed By: #### C BC #### [facility] [address] [place] [address] Dr. Donovan Cruz MCV (RBC) [Entitic vol] 90.6 fL Normal 81.0-99.0 [facility] Comment on above: Performed By: #### C BC #### [facility] [address] [place] [address] Dr. Donovan Cruz MONO # 0.3 103/ul Normal 0.3-0.8 [facility] Comment on above: Performed By: #### C BC #### [facility] [address] [place] [address] Dr. Donovan Cruz Monocytes/100 WBC (Bld) 5.8 % Normal 1.7-12.0 [facility] Comment on above: Performed By: #### C BC #### [facility] [address] [place] [address] Dr. Donovan Cruz NEUT # 2.2 103/ul Normal 1.4-6.5 [facility] Comment on above: Performed By: #### C BC #### [facility] [address] [place] [address] Dr. Donovan Cruz Neutrophils/100 WBC (Bld) 44.9 % Normal 43.0-75.0 [facility] Comment on above: Performed By: #### C BC #### [facility] [address] [place] [address] Dr. Donovan Cruz Platelet mean volume (Bld) [Entitic vol] 11.2 fL Normal 9.5-13.5 [facility] Comment on above: Performed By: #### C BC #### [facility] [address] [place] [address] Dr. Donovan Cruz PLT 158 103/ul Normal 150-450 [facility] Comment on above: Performed By: #### C BC #### [facility] [address] [place] [address] Dr. Donovan Cruz RBC 4.38 106/ul Normal 4.20-5.40 [facility] Comment on above: Performed By: #### C BC #### [facility] [address] [place] [address] Dr. Donovan Cruz WBC 5.0 103/ul Normal 4.0-11.0 [facility] Comment on above: Performed By: #### C BC #### [facility] [address] [place] [address] Dr. Donovan Cruz GLYCOHEMOGLOBIN A1Con 2021 ADA RECOMMENDATION SEE BELOW Normal [facility] Comment on above: Result Comment: ADA RECOMMENDED LIMIT 4.0 - 6.0 ADA THERAPEUTIC TARGET < 7.0 ACTION SUGGESTED > 7.0 Performed By: #### A 1C #### [facility] [address] [place] [address] Dr. Donovan Cruz Glucose [Mass/Vol] 114 mg/dL Normal [facility] Comment on above: Performed By: #### A 1C #### [facility] [address] [place] [address] Dr. Donovan Cruz HbA1c (Bld) [Mass fraction] 5.6 % Normal 4.5-6.2 [facility] Comment on above: Performed By: #### A 1C #### [facility] [address] [place] [address] Dr. Donovan Cruz LIPID PROFILEon 07-07-2022 CHOL-HDL RATIO NORM SEE BELOW Normal [facility] Comment on above: Result Comment: 3.3 - 4.4 LOW RISK 4.4 - 7.1 AVERAGE RISK 7.1 - 11.0 MODERATE RISK >11.0 HIGH RISK Performed By: #### T SH, CMP, LIPID #### [facility] [address] [place] [address] Dr. Donovan Cruz Cholesterol [Mass/Vol] 215 mg/dL Critically high <=200 [facility] Comment on above: Performed By: #### T SH, CMP, LIPID #### [facility] [address] [address] [address] Donovan Cruz Cholesterol in HDL [Mass/Vol] 40 mg/dL Normal 40-60 [facility] Comment on above: Performed By: #### T SH, CMP, LIPID #### [facility] [address] [address] [address] Donovan Cruz Cholesterol in LDL [Mass/Vol] 146.8 mg/dL Normal [facility] Comment on above: Performed By: #### T SH, CMP, LIPID #### [facility] [address] [address] [address] Donovan Cruz Cholesterol.total/Chol esterol in HDL [Mass ratio] 5.4 {ratio} Normal [facility] Comment on above: Performed By: #### T SH, CMP, LIPID #### [facility] [address] [address] [address] Donovan Cruz HDL NORMAL > or = 60 mg/dl - LO W CARDIOVASCULAR RISK <40 mg/dl - HIGH CARDIOVASCULAR RISK Normal [facility] Comment on above: Performed By: #### T SH, CMP, LIPID #### [facility] [address] [place] [address] Dr. Donovan Cruz LDL CALC NORMAL SEE BELOW Normal [facility] Comment on above: Result Comment: <100 mg/dl OPTIMAL 100 - 129 mg/dl NEAR OR ABOVE OPTIMAL 130 - 159 mg/dl BORDERLINE HIGH 160 - 189 mg/dl HIGH >190 mg/dl VERY HIGH Performed By: #### T SH, CMP, LIPID #### [facility] [address] [place] [address] Dr. Donovan Cruz Triglyceride [Mass/Vol] 141 mg/dL Normal <=150 [facility] Comment on above: Performed By: #### T SH, CMP, LIPID #### [facility] [address] [place] [address] Dr. Donovan Cruz VLDL CALC 28.2 mg/dL Normal [facility] Comment on above: Performed By: #### T SH, CMP, LIPID #### [facility] [address] [place], [place] [id number] Dr. Donovan Cruz PROF 14(COMP METB)on 022 Albumin [Mass/Vol] 3.7 g/dL Normal 3.4-5.0 [facility] Comment on above: Performed By: #### T SH, CMP, LIPID #### [facility] [address] [address] [address] Donovan Cruz Albumin/Globulin [Mass ratio] 1.1 {ratio} Normal [facility] Comment on above: Performed By: #### T SH, CMP, LIPID #### [facility] [address] [address] [address] Donovan Cruz ALP [Catalytic activity/Vol] 66 U/L Normal 46-116 [facility] Comment on above: Performed By: #### T SH, CMP, LIPID #### [facility] [address] [place] [address] Dr. Donovan Cruz ALT [Catalytic activity/Vol] 83 U/L Critically high 14-59 [facility] Comment on above: Performed By: #### T SH, CMP, LIPID #### [facility] [address] [address] [address] Donovan Cruz Anion gap [Moles/Vol] 10.1 mmol/L Normal [facility] Comment on above: Performed By: #### T SH, CMP, LIPID #### [facility] [address] [place] [address] Dr. Donovan Cruz AST [Catalytic activity/Vol] 53 U/L Critically high 15-37 [facility] Comment on above: Performed By: #### T SH, CMP, LIPID #### [facility] [address] [address] [address] Donovan Cruz Bilirubin [Mass/Vol] 0.3 mg/dL Normal 0.2-1.0 [facility] Comment on above: Performed By: #### T SH, CMP, LIPID #### [facility] [address] [place] [address] Dr. Donovan Cruz Calcium [Mass/Vol] 9.1 mg/dL Normal 8.5-10.1 [facility] Comment on above: Performed By: #### T SH, CMP, LIPID #### [facility] [address] [address] [address] Donovan Cruz Chloride [Moles/Vol] 105 mmol/L Normal 98-107 [facility] Comment on above: Performed By: #### T SH, CMP, LIPID #### [facility] [address] [address] [address] Donovan Cruz CO2 [Moles/Vol] 30.1 mmol/L Normal 21.0-32.0 [facility] Comment on above: Performed By: #### T SH, CMP, LIPID #### [facility] [address] [address] [address] Donovan Cruz Creatinine [Mass/Vol] 0.91 mg/dL Normal 0.55-1.02 [facility] Comment on above: Performed By: #### T SH, CMP, LIPID #### [facility] [address] [place] [address] Dr. Donovan Cruz EGFR-AF ERITREAN >60 Normal >=60 [facility] Comment on above: Performed By: #### T SH, CMP, LIPID #### [facility] [address] [place] [address] Dr. Donovan Cruz EGFR-NON AF ERITREAN >60 Normal >=60 [facility] Comment on above: Performed By: #### T SH, CMP, LIPID #### [facility] [address] [address] [address] Donovan Cruz Globulin (S) [Mass/Vol] 3.4 g/dL Normal [facility] Comment on above: Performed By: #### T SH, CMP, LIPID #### [facility] [address] [address] [address] Donovan Cruz Glucose [Mass/Vol] 113 mg/dL Critically high 74-106 [facility] Comment on above: Performed By: #### T SH, CMP, LIPID #### [facility] [address] [place] [address] Dr. Donovan Curz Potassium [Moles/Vol] 4.2 mmol/L Normal 3.5-5.1 [facility] Comment on above: Performed By: #### T SH, CMP, LIPID #### [facility] [address] [address] [address] Donovan Cruz Protein [Mass/Vol] 7.1 g/dL Normal 6.4-8.2 [facility] Comment on above: Performed By: #### T SH, CMP, LIPID #### [facility] [address] [address] [address] Donovan Cruz Sodium [Moles/Vol] 141 mmol/L Normal 136-145 [facility] Comment on above: Performed By: #### T SH, CMP, LIPID #### [facility] [address] [place] [address] Dr. Donovan Cruz Urea nitrogen [Mass/Vol] 14.0 mg/dL Normal 7.0-18.0 [facility] Comment on above: Performed By: #### T SH, CMP, LIPID #### [facility] [address] [place] [address] Dr. Donovan Cruz Urea nitrogen/Creatinine [Mass ratio] 15.4 mg/mg Normal [facility] Comment on above: Performed By: #### T SH, CMP, LIPID #### [facility] [address] [place] [address] Dr. Donovan Cruz TSHon 07-07-2022 TSH 5.438 uIU/mL Critically high 0.358-3.74 0 [facility] Comment on above: Performed By: #### T SH, CMP, LIPID #### [facility] [address] [place] [address] Dr. Donovan Cruz Vital Signs Date Time Vital Sign Value Performing Clinician Facility 05-27-2025 11:06040 Body height 165.1 cm Justin Buckner MD Work Phone: [facility] 05-27-2025 11:06-040 Body mass index (BMI) [Ratio] 34.4 kg/m2 Justin Buckner MD Work Phone: [facility] 05-27-2025 11:06040 Body weight 93.89 kg Justin Buckner MD Work Phone: [facility] 05-27-2025 11:06-0400 Diastolic blood pressure 88 mm[Hg] Justin Buckner MD Work Phone: [facility] 05-27-2025 11:06-0400 Heart rate 80 /min Justin Buckner MD Work Phone: [facility] 05-27-2025 11:06-0400 SaO2% (BldA) [Mass fraction] 99 % Justin Buckner MD Work Phone: [facility] 05-27-2025 11:06-0400 Systolic blood pressure 132 mm[Hg] Justin Buckner MD Work Phone: [facility] 04-11-2025 16:00-0400 Body temperature 97.7 [degF] Justin Buckner MD Work Phone: [facility] 04-11-2025 16:00-0400 Diastolic blood pressure 89 mm[Hg] Justin Buckner MD Work Phone: [facility] 04-11-2025 16:00-0400 Heart rate 67 /min Justin Buckner MD Work Phone: [facility] 04-11-2025 16:00-0400 Respiratory rate 15 /min Justin Buckner MD Work Phone: [facility] 04-11-2025 16:00-0400 SaO2% (BldA) [Mass fraction] 98 % Justin Buckner MD Work Phone: [facility] 04-11-2025 16:00-0400 Systolic blood pressure 158 mm[Hg] Justin Buckner MD Work Phone: [facility] 04-11-2025 05:36-0400 Body weight 93.7 kg Justin Buckner MD Work Phone: [facility] 04-10-2025 17:56-0400 Body height 165.1 cm Justin Buckner MD Work Phone: [facility] 04-10-2025 16:49-0400 Diastolic blood pressure 75 mm[Hg] Justin Buckner MD Work Phone: [facility] 04-10-2025 16:49-0400 Heart rate 75 /min Justin Buckner MD Work Phone: [facility] 04-10-2025 16:49-0400 Respiratory rate 18 /min Justin Buckner MD Work Phone: [facility] 04-10-2025 16:49-0400 SaO2% (BldA) [Mass fraction] 98 % Justin Buckner MD Work Phone: [facility] 04-10-2025 16:49-0400 Systolic blood pressure 125 mm[Hg] Justin Buckner MD Work Phone: [facility] 04-10-2025 13:34-0400 Body height 165.1 cm Justin Buckner MD Work Phone: [facility] 04-10-2025 13:34-0400 Body temperature 98.2 [degF] Justin Buckner MD Work Phone: [facility] 04-10-2025 13:34-0400 Body weight 95.5 kg Justin Buckner MD Work Phone: [facility] 02-18-2025 10:32-0400 Body height 162.6 cm Jaun Goldy PA-C Work Phone: [facility] 02-18-2025 10:32-0400 Body mass index (BMI) [Ratio] 36.92 kg/m2 Jaun Goldy PA-C Work Phone: [facility] 02-18-2025 10:32-0400 Body temperature 97.39 [degF] Jaun Goldy PA-C Work Phone: [facility] 02-18-2025 10:32-0400 Body weight 97.6 kg Jaun Goldy PA-C Work Phone: [facility] 02-18-2025 10:32-0400 Diastolic blood pressure 79 mm[Hg] Jaun Goldy PA-C Work Phone: [facility] 02-18-2025 10:32-0400 Heart rate 80 /min Jaunсергей Blancaser PA-C Work Phone: [facility] 02-18-2025 10:32-0400 Respiratory rate 16 /min Jaunсергей Blancaser PA-C Work Phone: [facility] 02-18-2025 10:32-0400 SaO2% (BldA) [Mass fraction] 98 % Jaunсергей Blancaser PA-C Work Phone: [facility] 02-18-2025 10:32-0400 Systolic blood pressure 138 mm[Hg] Jaun Blancaser PA-C Work Phone: [facility] 11-03-2024 09:11-0500 Body height 162.6 cm Jose Wing MD Work Phone: [facility] 11-03-2024 09:11-0500 Body mass index (BMI) [Ratio] 38.66 kg/m2 Jose Wing MD Work Phone: [facility] [facility] 11-03-2024 09:11-0500 Body temperature 96.91 [degF] Jsoe Wing MD Work Phone: [facility] 11-03-2024 09:11-0500 Body weight 102.2 kg Jose Wing MD Work Phone: [facility] 11-03-2024 09:11-0500 Diastolic blood pressure 83 mm[Hg] Jose Wing MD Work Phone: [facility] 11-03-2024 09:11-0500 Heart rate 78 /min Jose Wing MD Work Phone: [facility] 11-03-2024 09:11-0500 Respiratory rate 16 /min Jose Wing MD Work Phone: [facility] 11-03-2024 09:11-0500 SaO2% (BldA) [Mass fraction] 97 % Jose Wing MD Work Phone: [facility] 11-03-2024 09:11-0500 Systolic blood pressure 163 mm[Hg] Jose Wing MD Work Phone: [facility] 08-04-2024 08:30-0500 Diastolic blood pressure 66 mm[Hg] Kaley Francois MD Work Phone: [facility] 08-04-2024 08:30-0500 Heart rate 59 /min Kaley Francois MD Work Phone: [facility] 08-04-2024 08:30-0500 Respiratory rate 18 /min Kaley Francois MD Work Phone: [facility] 08-04-2024 08:30-0500 SaO2% (BldA) [Mass fraction] 96 % Kaley Francois MD Work Phone: [facility] 08-04-2024 08:30-0500 Systolic blood pressure 123 mm[Hg] Kaley Francois MD Work Phone: [facility] 08-04-2024 08:29-0500 Body temperature 96.8 [degF] Kaley Francois MD Work Phone: [facility] 07-14-2024 10:20-0500 Body height 162.6 cm Jose Wing MD Work Phone: [facility] 07-14-2024 10:20-0500 Body mass index (BMI) [Ratio] 37.33 kg/m2 Jose Wing MD Work Phone: [facility] 07-14-2024 10:20-0500 Body temperature 97.7 [degF] Jose Wing MD Work Phone: [facility] 07-14-2024 10:20-0500 Body weight 98.7 kg Jose Wing MD Work Phone: [facility] 07-14-2024 10:20-0500 Diastolic blood pressure 74 mm[Hg] Jose Wing MD Work Phone: [facility] 07-14-2024 10:20-0500 Heart rate 61 /min Jose Wing MD Work Phone: [facility] 07-14-2024 10:20-0500 Respiratory rate 16 /min Jose Wing MD Work Phone: [facility] 07-14-2024 10:20-0500 SaO2% (BldA) [Mass fraction] 96 % Jose Wing MD Work Phone: [facility] 07-14-2024 10:20-0500 Systolic blood pressure 152 mm[Hg] Jose Wing MD Work Phone: [facility] 06-19-2024 09:01-0400 Body temperature 97 [degF] Kaley Francois MD Work Phone: [facility] 06-19-2024 09:01-0400 Diastolic blood pressure 75 mm[Hg] Kaley Francois MD Work Phone: [facility] 06-19-2024 09:01-0400 Heart rate 75 /min Kaley Francois MD Work Phone: [facility] 06-19-2024 09:01-0400 SaO2% (BldA) [Mass fraction] 98 % Kaley Francois MD Work Phone: [facility] 06-19-2024 09:01-0400 Systolic blood pressure 151 mm[Hg] Kaley Francois MD Work Phone: [facility] 03-20-2024 12:24-0400 Body temperature 97.3 [degF] Mesha Ortega APRN.WILDFIRE PREVENTION SPECIALIST Work Phone: [facility] 03-20-2024 12:24-0400 Diastolic blood pressure 69 mm[Hg] Mesha Ortega APRN.WILDFIRE PREVENTION SPECIALIST Work Phone: [facility] 03-20-2024 12:24-0400 Heart rate 77 /min Mesha Ortega COMMUNITY SERVICE COORDINATOR.WILDFIRE PREVENTION SPECIALIST Work Phone: [facility] 03-20-2024 12:24-0400 SaO2% (BldA) [Mass fraction] 98 % Mesha Ortega COMMUNITY SERVICE COORDINATOR.WILDFIRE PREVENTION SPECIALIST Work Phone: [facility] 03-20-2024 12:24-0400 Systolic blood pressure 151 mm[Hg] Mesha Ortega COMMUNITY SERVICE COORDINATOR.WILDFIRE PREVENTION SPECIALIST Work Phone: [facility] 01-30-2024 10:00-0400 Body height 162.6 cm Pacc 2 Work Phone: [facility] 01-30-2024 10:00-0400 Body mass index (BMI) [Ratio] 34.81 kg/m2 Pacc 2 Work Phone: [facility] 01-30-2024 10:00-0400 Body temperature 98.2 [degF] Pacc 2 Work Phone: [facility] 01-30-2024 10:00-0400 Body weight 92 kg Pacc 2 Work Phone: [facility] 01-30-2024 10:00-0400 Diastolic blood pressure 80 mm[Hg] Pacc 2 Work Phone: [facility] 01-30-2024 10:00-0400 Heart rate 64 /min Pacc 2 Work Phone: [facility] 01-30-2024 10:00-0400 Respiratory rate 16 /min Pacc 2 Work Phone: [facility] 01-30-2024 10:00-0400 SaO2% (BldA) [Mass fraction] 99 % Pacc 2 Work Phone: [facility] 01-30-2024 10:00-0400 Systolic blood pressure 124 mm[Hg] Pacc 2 Work Phone: [facility] 01-24-2024 13:38-0400 Body temperature 97 [degF] Kaley Francois MD Work Phone: [facility] 01-24-2024 13:38-0400 Diastolic blood pressure 69 mm[Hg] Kaley Francois MD Work Phone: [facility] 01-24-2024 13:38-0400 Heart rate 87 /min Kaley Francois MD Work Phone: [facility] 01-24-2024 13:38-0400 SaO2% (BldA) [Mass fraction] 99 % Kaley Francois MD Work Phone: [facility] 01-24-2024 13:38-0400 Systolic blood pressure 127 mm[Hg] Kaley Francois MD Work Phone: [facility] 01-17-2024 14:22-0400 Body temperature 97 [degF] Mesha Ortega COMMUNITY SERVICE COORDINATORLawrenceWILDFIRE PREVENTION SPECIALIST Work Phone: [facility] 01-17-2024 14:22-0400 Diastolic blood pressure 69 mm[Hg] Mesha Ortega COMMUNITY SERVICE COORDINATOR.WILDFIRE PREVENTION SPECIALIST Work Phone: [facility] 01-17-2024 14:22-0400 Heart rate 104 /min Mesha Ortega COMMUNITY SERVICE COORDINATORLawrenceWILDFIRE PREVENTION SPECIALIST Work Phone: [facility] 01-17-2024 14:22-0400 SaO2% (BldA) [Mass fraction] 98 % Mesha Ortega COMMUNITY SERVICE COORDINATOR.WILDFIRE PREVENTION SPECIALIST Work Phone: [facility] 01-17-2024 14:22-0400 Systolic blood pressure 116 mm[Hg] Mesha Ortega COMMUNITY SERVICE COORDINATOR.WILDFIRE PREVENTION SPECIALIST Work Phone: [facility] 01-11-2024 14:53-0400 Body height 164.3 cm Jose Wing MD Work Phone: [facility] 01-11-2024 14:53-0400 Body mass index (BMI) [Ratio] 34.3 kg/m2 Jose Wing MD Work Phone: [facility] 01-11-2024 14:53-0400 Body temperature 97.59 [degF] Jose Wing MD Work Phone: [facility] 01-11-2024 14:53-0400 Body weight 92.6 kg Jose Wing MD Work Phone: [facility] 01-11-2024 14:53-0400 Diastolic blood pressure 83 mm[Hg] Jose Wing MD Work Phone: [facility] 01-11-2024 14:53-0400 Heart rate 88 /min Jose Wing MD Work Phone: [facility] 01-11-2024 14:53-0400 Respiratory rate 18 /min Jose Wing MD Work Phone: [facility] 01-11-2024 14:53-0400 SaO2% (BldA) [Mass fraction] 99 % Jose Wing MD Work Phone: [facility] 01-11-2024 14:53-0400 Systolic blood pressure 136 mm[Hg] Jose Wing MD Work Phone: [facility] 12-19-2023 07:30-0400 Body height 164.3 cm Pacc 3 Work Phone: [facility] 12-19-2023 07:30-0400 Body temperature 97.81 [degF] Pacc 3 Work Phone: [facility] 12-19-2023 07:30-0400 Body weight 101.1 kg Pacc 3 Work Phone: [facility] 12-19-2023 07:30-0400 Diastolic blood pressure 73 mm[Hg] Pacc 3 Work Phone: [facility] 12-19-2023 07:30-0400 Heart rate 74 /min Pacc 3 Work Phone: [facility] 12-19-2023 07:30-0400 Respiratory rate 16 /min Pacc 3 Work Phone: [facility] 12-19-2023 07:30-0400 SaO2% (BldA) [Mass fraction] 98 % Pacc 3 Work Phone: [facility] 12-19-2023 07:30-0400 Systolic blood pressure 142 mm[Hg] Pacc 3 Work Phone: [facility] 11-23-2023 11:01-0400 Body temperature 98.29 [degF] Chair [place] Work Phone: [facility] 11-23-2023 11:01-0400 Diastolic blood pressure 76 mm[Hg] Chair Rosy Work Phone: [facility] 11-23-2023 11:01-0400 Heart rate 78 /min Chair [place] Work Phone: [facility] 11-23-2023 11:01-0400 Respiratory rate 18 /min Chair [place] Work Phone: [facility] 11-23-2023 11:01-0400 SaO2% (BldA) [Mass fraction] 96 % Chair [place] Work Phone: [facility] 11-23-2023 11:01-0400 Systolic blood pressure 133 mm[Hg] Chair Rosy Work Phone: [facility] 11-21-2023 09:09-0400 Body height 164.3 cm Jose Wing MD Work Phone: [facility] 11-21-2023 09:09-0400 Body temperature 97 [degF] Jose Wing MD Work Phone: [facility] 11-21-2023 09:09-0400 Body weight 101.3 kg Jose Wing MD Work Phone: [facility] 11-21-2023 09:09-0400 Diastolic blood pressure 81 mm[Hg] Jose Wing MD Work Phone: [facility] 11-21-2023 09:09-0400 Heart rate 70 /min Jose Wing MD Work Phone: [facility] 11-21-2023 09:09-0400 Respiratory rate 16 /min Jose Wing MD Work Phone: [facility] 11-21-2023 09:09-0400 SaO2% (BldA) [Mass fraction] 97 % Jose Wing MD Work Phone: [facility] 11-21-2023 09:09-0400 Systolic blood pressure 162 mm[Hg] Jose Wing MD Work Phone: [facility] 10-26-2023 10:26-0500 Body temperature 98.1 [degF] Chair [place] Work Phone: [facility] 10-26-2023 10:26-0500 Diastolic blood pressure 84 mm[Hg] Chair [place] Work Phone: [facility] 10-26-2023 10:26-0500 Heart rate 85 /min Chair [place] Work Phone: [facility] 10-26-2023 10:26-0500 Respiratory rate 16 /min Chair [place] Work Phone: [facility] 10-26-2023 10:26-0500 SaO2% (BldA) [Mass fraction] 96 % Chair [place] Work Phone: [facility] 10-26-2023 10:26-0500 Systolic blood pressure 116 mm[Hg] Chair [place] Work Phone: [facility] 10-24-2023 09:09-0500 Body height 164.3 cm Jose Wing MD Work Phone: [facility] 10-24-2023 09:09-0500 Body temperature 97.81 [degF] Jose Wing MD Work Phone: [facility] 10-24-2023 09:09-0500 Body weight 100.4 kg Jose Wing MD Work Phone: [facility] 10-24-2023 09:09-0500 Diastolic blood pressure 76 mm[Hg] Jose Wing MD Work Phone: [facility] 10-24-2023 09:09-0500 Heart rate 76 /min Jose Wing MD Work Phone: [facility] 10-24-2023 09:09-0500 Respiratory rate 16 /min Jose Wing MD Work Phone: [facility] 10-24-2023 09:09-0500 SaO2% (BldA) [Mass fraction] 97 % Jose Wing MD Work Phone: [facility] 10-24-2023 09:09-0500 Systolic blood pressure 175 mm[Hg] Jose Wing MD Work Phone: [facility] 10-12-2023 10:57-0500 Body temperature 98.01 [degF] Chair [place] Work Phone: [facility] 10-12-2023 10:57-0500 Diastolic blood pressure 63 mm[Hg] Chair Rosy Work Phone: [facility] 10-12-2023 10:57-0500 Heart rate 107 /min Chair [place] Work Phone: [facility] 10-12-2023 10:57-0500 Respiratory rate 18 /min Chair Rosy Work Phone: [facility] 10-12-2023 10:57-0500 Systolic blood pressure 98 mm[Hg] Chair [place] Work Phone: [facility] 08-13-2023 13:14-0500 Body height 165.1 cm Pacc 3 Work Phone: [facility] 08-13-2023 13:14-0500 Body temperature 97.9 [degF] Pacc 3 Work Phone: [facility] 08-13-2023 13:14-0500 Body weight 102.06 kg Pacc 3 Work Phone: [facility] 08-13-2023 13:14-0500 Diastolic blood pressure 88 mm[Hg] Pacc 3 Work Phone: [facility] 08-13-2023 13:14-0500 Heart rate 79 /min Pacc 3 Work Phone: [facility] 08-13-2023 13:14-0500 Respiratory rate 20 /min Pacc 3 Work Phone: [facility] 08-13-2023 13:14-0500 SaO2% (BldA) [Mass fraction] 97 % Pacc 3 Work Phone: [facility] 08-13-2023 13:14-0500 Systolic blood pressure 144 mm[Hg] Pacc 3 Work Phone: [facility] 08-13-2023 09:50-0500 Body height 162.6 cm Dao Dixon MD Work Phone: [facility] 08-13-2023 09:50-0500 Body weight 102.06 kg Dao Dixon MD Work Phone: [facility] 08-13-2023 09:50-0500 Diastolic blood pressure 86 mm[Hg] Dao Dixon MD Work Phone: [facility] 08-13-2023 09:50-0500 Heart rate 77 /min Dao Dixon MD Work Phone: [facility] 08-13-2023 09:50-0500 SaO2% (BldA) [Mass fraction] 97 % Dao Dixon MD Work Phone: [facility] 08-13-2023 09:50-0500 Systolic blood pressure 163 mm[Hg] Dao Dixon MD Work Phone: [facility] 06-29-2023 11:13-0400 Body height 164 cm Jose Wing MD Work Phone: [facility] 06-29-2023 11:13-0400 Body temperature 97.39 [degF] Jose Wing MD Work Phone: [facility] 06-29-2023 11:13-0400 Body weight 102.78 kg Jose Wing MD Work Phone: [facility] 06-29-2023 11:13-0400 Diastolic blood pressure 77 mm[Hg] Jose Wing MD Work Phone: [facility] 06-29-2023 11:13-0400 Heart rate 64 /min Jose Wing MD Work Phone: [facility] 06-29-2023 11:13-0400 Respiratory rate 16 /min Jose Wing MD Work Phone: [facility] 06-29-2023 11:13-0400 SaO2% (BldA) [Mass fraction] 98 % Jose Wing MD Work Phone: [facility] 06-29-2023 11:13-0400 Systolic blood pressure 159 mm[Hg] Jose Wing MD Work Phone: [facility] 06-08-2023 14:41-0400 Diastolic blood pressure 78 mm[Hg] Kaley Francois MD Work Phone: [facility] 06-08-2023 14:41-0400 Heart rate 60 /min Kaley Francois MD Work Phone: [facility] 06-08-2023 14:41-0400 Respiratory rate 15 /min Kaley Francois MD Work Phone: [facility] 06-08-2023 14:41-0400 SaO2% (BldA) [Mass fraction] 99 % Kaley Francois MD Work Phone: [facility] 06-08-2023 14:41-0400 Systolic blood pressure 145 mm[Hg] Kaley Francois MD Work Phone: [facility] 06-08-2023 14:05-0400 Body temperature 97.5 [degF] Kaley Francois MD Work Phone: [facility] 05-08-2023 13:46-0400 Blood Pressure Location Salbador HEADLEYMax[facility] [place] 05-08-2023 13:46-0400 Diastolic blood pressure 88 mm[Hg] Salbador NILL [facility] [place] 05-08-2023 13:46-0400 Heart rate 80 /min Salbador NILL [facility] [place] 05-08-2023 13:46-0400 Respiratory rate 16 /min Salbador NILL [facility] [place] 05-08-2023 13:46-0400 Systolic blood pressure 128 mm[Hg] Salbador KAYODEL [facility] [place] Encounters Encounter Date Encounter Type Care Provider Facility Start: 05-27-2025 End: 05-27-2025 ambulatory Justin Buckner MD Work Phone: [facility] Work Phone: Start: 05-27-2025 End: 05-27-2025 Patient encounter procedure Damaris Chavarria [facility] Neurology Work Phone: Start: 05-27-2025 End: 05-27-2025 ambulatory Lab/[facility] Jaren Rosy Work Phone: Hematology/Oncology Comment on above: 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); Malignant neoplasm of sigmoid colon (HCC) Start: 05-26-2025 End: 05-26-2025 ambulatory [facility] Start: 04-10-2025 End: 04-11-2025 ambulatory Simba Mulligan Facility:[facility] Start: 04-10-2025 Evaluation and management of inpatient Simba Mulligan MD -3 [facility] Work Phone: Start: 04-10-2025 Non-patient / Non-visit Ketan jason [facility] Neurology Work Phone: Start: 04-10-2025 observation encounter Justin Buckner MD Work Phone: [facility] Work Phone: Start: 02-18-2025 End: 02-18-2025 Telephone encounter Penelope Moreno RN Work Phone: Hematology/Oncology Start: 02-18-2025 End: 02-18-2025 Office outpatient visit 15 minutes Jaun Coffey PA-C Work Phone: Hematology/Oncology Comment on above: 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) Start: 02-18-2025 End: 02-18-2025 ambulatory JUSTIN BUCKNER Facility:[facility] Start: 02-10-2025 End: 02-10-2025 Follow-up encounter Jose Wing MD Work Phone: Hematology/Oncology Comment on above: Care Coordination (S can Results) Start: 02-09-2025 ambulatory [facility] Facility: [facility] Start: 02-09-2025 End: 02-09-2025 Subsequent hospital visit by physician Arrival Time Radiology Work Phone: Radiology [facility] Comment on above: Malignant neoplasm o f sigmoid colon (HCC) [C18.7] Start: 11-03-2024 End: 11-03-2024 ambulatory JUSTIN SITA Facility:[facility] Start: 11-03-2024 End: 11-03-2024 Office outpatient visit 25 minutes Jose Wing MD Work Phone: Hematology/Oncology Comment on above: Malignant neoplasm o f sigmoid colon (HCC) (Primary Dx); Thrombocytopenia (HCC); Fatty liver Start: 10-27-2024 End: 10-27-2024 ambulatory [facility] Facility:[facility] Start: 10-27-2024 End: 10-27-2024 Subsequent hospital visit by physician Arrival Time Radiology Work Phone: Radiology [facility] Comment on above: Malignant neoplasm o f sigmoid colon (HCC) [C18.7] Start: 08-04-2024 ambulatory LUISA PINEDATZ Facilit y:[facility] Start: 08-04-2024 End: 08-04-2024 Subsequent hospital visit by physician Kaley Francois MD Work Phone: [facility] Endoscopy - ENDO Comment on above: History of colon can cer [Z85.038] Start: 07-28-2024 End: 07-28-2024 ambulatory Kaley Francois MD Work Phone: [facility] Endoscopy - ENDO Comment on above: bowel prep instructi ons Start: 07-28-2024 End: 07-28-2024 E-mail encounter from caregiver Kaley Francois MD Work Phone: [facility] Endoscopy - ENDO Start: 07-14-2024 End: 07-15-2024 Telephone encounter Jose Wing MD Work Phone: [facility] Comment on above: Results Start: 07-14-2024 End: 07-14-2024 Office outpatient visit 25 minutes Jose Wing MD Work Phone: Hematology/Oncology Comment on above: Malignant neoplasm o f sigmoid colon (HCC) (Primary Dx) Start: 07-14-2024 End: 07-14-2024 ambulatory Lab/Port Jaren Acosta Work Phone: Hematology/Oncology Comment on above: Malignant neoplasm o f sigmoid colon (HCC) Start: 06-23-2024 End: 06-23-2024 Telephone encounter Penelope Moreno RN Work Phone: Hematology/Oncology Comment on above: Appointment Start: 06-19-2024 End: 06-19-2024 ambulatory JUSTIN BUCKNER Facility:[facility] Start: 06-19-2024 End: 06-19-2024 Patient encounter procedure Kaley Francois MD Work Phone: Colorectal Surgery Comment on above: History of colon can cer (Primary Dx) Start: 03-28-2024 Telephone encounter Kaley peck MD Work Phone: Colorectal Surgery Comment on above: Patient Update Start: 03-20-2024 End: 03-20-2024 Patient encounter procedure Mesha Ortega COMMUNITY SERVICE COORDINATOR.WILDFIRE PREVENTION SPECIALIST Work Phone: Colorectal Surgery Comment on above: Follow-up examinatio n after colorectal surgery (Primary Dx) Start: 03-07-2024 Telephone encounter Kaley peck MD Work Phone: Colorectal Surgery Comment on above: Patient Question Start: 02-29-2024 Telephone encounter Kaley peck MD Work Phone: Colorectal Surgery Comment on above: Post Op; Wound Care Start: 02-22-2024 End: 02-24-2024 Evaluation and management of inpatient [facility] Facility:[facility] Start: 02-07-2024 Telephone encounter Kaley peck MD Work Phone: Colorectal Surgery Comment on above: Medication Question Start: 02-05-2024 ambulatory [facility] Facili ty:[facility] Start: 02-05-2024 End: 02-05-2024 Subsequent hospital visit by physician Gi/Gu 2 [facility] (I-Stat) Work Phone: Radiology Comment on above: Attention to ileosto my (HCC) [Z43.2] Start: 01-30-2024 End: 01-31-2024 ambulatory [facility] Facility:[facility] Start: 01-30-2024 Encounter for other preprocedural examination [facility] Start: 01-30-2024 End: 01-30-2024 Admission to establishment [facility] [address] Work Phone: Pre Anesthesia Start: 01-30-2024 End: 01-30-2024 Patient encounter procedure Pacc 2 Work Phone: Pre Anesthesia Comment on above: Pre-op evaluation (P rimary Dx); Hypertension, unspecified type; Hyperlipidemia, unspecified hyperlipidemia type; Ileostomy present (HCC); PONV (postoperative nausea and vomiting); Hypothyroidism, unspecified type; Other iron deficiency anemia; Malignant neoplasm of colon, unspecified part of colon (HCC); Obesity (BMI 30-39.9); Hyponatremia Start: 01-30-2024 End: 01-30-2024 Preprocedural examination done Pac 2 Work Phone: [facility] Work Phone: Start: 01-24-2024 End: 01-24-2024 Patient encounter procedure Kaley Francois MD Work Phone: Colorectal Surgery Comment on above: Attention to ileosto my (HCC) (Primary Dx); Preoperative examination Start: 01-24-2024 End: 01-24-2024 Preprocedural examination done Kaley Francois MD Work Phone: [facility] Start: 01-17-2024 Emergency department patient visit JUSTIN BUCKNER Facility:[facility] Start: 01-17-2024 End: 01-17-2024 Patient encounter procedure Mesha Ortega APRN.WILDFIRE PREVENTION SPECIALIST Work Phone: Colorectal Surgery Comment on above: Follow-up examinatio n after colorectal surgery (Primary Dx); Encounter for ostomy care education; Ileostomy present (HCC) Start: 01-15-2024 Telephone encounter Kaley peck MD Work Phone: Colorectal Surgery Comment on above: 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 - H ospital Follow Up Start: 01-15-2024 End: 01-15-2024 ambulatory MD Justin Buckner Work Phone: [facility] Work Phone: Start: 01-15-2024 End: 01-15-2024 Discharged Recurring MD Justin Buckner Work Phone: [facility]-Enterostomal Therapy Work Phone: Start: 01-13-2024 Admission to [facility] Kaley Francois MD Work Phone: COLORECTAL SURGERY Comment on above: Medication for Skin irritation/ Unable to wear Osty Bag Start: 01-13-2024 ambulatory Kaley marques MD Work Phone: COLORECTAL SURGERY Start: 01-11-2024 End: 01-11-2024 Office outpatient visit 40 minutes Jose Wing MD Work Phone: Hematology/Oncology Comment on above: Malignant neoplasm o f sigmoid colon (HCC) (Primary Dx); Morbid obesity (HCC) Start: 01-11-2024 End: 01-11-2024 ambulatory Lab/Port Jaren Rosy Work Phone: Hematology/Oncology Comment on above: Malignant neoplasm o f sigmoid colon (HCC) Start: 01-03-2024 Orders Only Kaley marques MD Work Phone: Colorectal Surgery Comment on above: Malignant neoplasm o f sigmoid colon (HCC) (Primary Dx) Start: 12-28-2023 End: 01-03-2024 Evaluation and management of inpatient KALEY VEGA Facility:[facility] Start: 12-19-2023 End: 12-19-2023 Admission to establishment [facility] 3 Work Phone: [place] Start: 12-19-2023 End: 12-19-2023 ambulatory [facility] 3 Work Phone: Pre Anesthesia Comment [...] Start: 12-19-2023 End: 12-19-2023 Preprocedural examination done [facility] 3 Work Phone: [facility] Work Phone: Start: 11-28-2023 Telephone encounter Penelope palomo RN Work Phone: Hematology/Oncology Comment on above: Care Coordination (S urgery Update; Appointments) Start: 11-23-2023 End: 11-23-2023 ambulatory Chair 20 Rosy Work Phone: Hematology/Oncology Comment on above: Malignant neoplasm o f sigmoid colon (HCC) (Primary Dx); Rectal cancer (HCC) Start: 11-22-2023 Telephone encounter Kaley peck MD Work Phone: General Surgery Comment on above: Opened In Error Start: 11-21-2023 End: 11-21-2023 Nutrition therapy Eliza Abernathy RD Work Phone: Nutrition Therapy Comment on above: Nutrition Assessment Start: 11-21-2023 End: 11-21-2023 Office outpatient visit 25 minutes Jose Wing MD Work Phone: Hematology/Oncology Comment on above: Malignant neoplasm o f sigmoid colon (HCC) (Primary Dx) Start: 11-21-2023 End: 11-21-2023 ambulatory Lab/Port Jaren Rosy Work Phone: Hematology/Oncology Comment on above: Malignant neoplasm o f sigmoid colon (HCC) Malignant neoplasm o f sigmoid colon (HCC) (Primary Dx) Start: 11-07-2023 End: 11-07-2023 Subsequent hospital visit by physician Arrival Time Radiology Work Phone: Radiology Pet CT Comment on above: Malignant neoplasm o f descending colon (HCC) [C18.6] Start: 10-26-2023 End: 10-26-2023 ambulatory Chair 20 Rosy Work Phone: Hematology/Oncology Comment on above: Malignant neoplasm o f sigmoid colon (HCC) (Primary Dx); Rectal cancer (HCC) Start: 10-24-2023 End: 10-24-2023 Office outpatient visit 40 minutes Jose Wing MD Work Phone: Hematology/Oncology Comment on above: Malignant neoplasm o f descending colon (HCC) (Primary Dx) Start: 10-24-2023 End: 10-24-2023 ambulatory Lab/Port Jaren [place] Work Phone: Hematology/Oncology Comment on above: Malignant neoplasm o f sigmoid colon (HCC) Other iron deficienc y anemia (Primary Dx); Malignant neoplasm of sigmoid colon (HCC) Start: 10-18-2023 Telephone encounter Penelope palomo RN Work Phone: Hematology/Oncology Comment on above: Care Coordination (P roductive Cough) Start: 10-16-2023 Telephone encounter Penelope palomo RN Work Phone: Hematology/Oncology Comment on above: Care Coordination (I nsurance Denial) Start: 10-12-2023 End: 10-12-2023 ambulatory Chair 20 Rosy Work Phone: Hematology/Oncology Comment on above: Malignant neoplasm o f sigmoid colon (HCC) (Primary Dx); Rectal cancer (HCC) Start: 08-30-2023 Telephone encounter Neel CUELLO Work Phone: [employer] [facility] Comment on above: Results Start: 08-29-2023 End: 08-29-[address] Work Phone: [place] Start: 08-29-2023 End: 08-29-2023 Nutrition therapy Eliza Abernathy RD Work Phone: Nutrition Therapy Comment on above: Nutrition Assessment Start: 08-24-2023 Telephone encounter Penelope palomo RN Work Phone: Hematology/Oncology Comment on above: Care Coordination (P t Update) Start: 08-22-2023 End: 08-22-2023 ambulatory DAO DIXON Facility:[facility] Start: 08-21-2023 End: 08-21-2023 ambulatory Neel aJunsiva KHUSHBOO Work Phone: [facility] [facility] Comment on above: Malignant neoplasm o f sigmoid colon (HCC) (Primary Dx); Family history of colon cancer; Family history of brain cancer First Time Treatment Education (Oxaliplatin, Leucovorin, & 5FU) Start: 08-21-2023 Telephone encounter Jose del valle MD Work Phone: Hematology/Oncology Start: 08-21-2023 End: 08-21-2023 Telemedicine consultation with patient Neel Cyr KHUSHBOO Work Phone: [facility] Start: 08-15-2023 End: 08-15-2023 ambulatory AYDIN JEREZ Facility:[facility] Start: 08-14-2023 Telephone encounter Penelope palomo RN Work Phone: Hematology/Oncology Comment on above: Care Coordination (A ntiemetics) Start: 08-13-2023 End: 08-13-2023 [facility] Work Phone: [place] Start: 08-13-2023 End: 08-13-2023 [facility] 3 Work Phone: Pre Anesthesia Comment on above: Pre-op evaluation (P rimary Dx); Hyperlipidemia, unspecified hyperlipidemia type; Hypertension, unspecified type; Class 2 obesity with body mass index (BMI) of 38.0 to 38.9 in adult, unspecified obesity type, unspecified whether serious comorbidity present; Hypothyroidism, unspecified type; PONV (postoperative nausea and vomiting); Rectal cancer (HCC) Start: 08-13-2023 End: 08-13-2023 Preprocedural examination done [facility] Work Phone: [facility] Work Phone: Start: 08-13-2023 End: 08-13-2023 Patient encounter procedure Dao Dixon MD Work Phone: Pulmonology Comment on above: Lung nodule (Primary Dx); Rectal cancer (HCC) Start: 08-13-2023 End: 08-13-2023 ambulatory DAO DIXON Facility:[facility] Start: 08-13-2023 ambulatory DAO DIXON Facili ty:[facility] Start: 08-13-2023 End: 08-13-2023 Subsequent hospital visit by physician Ekg/Stress [facility] Work Phone: Cardiovascular Testing Comment on above: Lung nodule [R91.1] Start: 08-10-2023 Telephone encounter Nya Sterling RN [facility] Radiology Procedure Start: 07-26-2023 Telephone encounter Jose del valle MD Work Phone: [facility] Comment on above: Appointment Referral Information (Port Placement) Start: 07-20-2023 Telephone encounter Jose del valle MD Work Phone: [facility] [employer] Comment on above: Consult Start: 07-13-2023 End: 07-13-2023 Subsequent hospital visit by physician Arrival Time Radiology Work Phone: Radiology Pet CT Comment on above: Malignant neoplasm o f sigmoid colon (HCC) [C18.7] Start: 07-06-2023 End: 07-06-2023 Subsequent hospital visit by physician Arrival Time Radiology Work Phone: Radiology Pet CT Comment on above: Malignant neoplasm o f sigmoid colon (HCC) [C18.7] Start: 07-04-2023 Telephone encounter Ai Bansal Hematology/Oncology Comment on above: Results Start: 06-29-2023 Telephone encounter Jose del valle MD Work Phone: [facility] [employer] Comment on above: Results Start: 06-29-2023 End: 06-29-2023 Office outpatient new 60 minutes Jose Wing MD Work Phone: Hematology/Oncology Comment on above: Malignant neoplasm o f sigmoid colon (HCC) (Primary Dx); Iron deficiency anemia due to chronic blood loss Start: 06-25-2023 Telephone encounter Kaley peck MD Work Phone: Colorectal Surgery Comment on above: Patient Question Start: 06-22-2023 End: 06-22-2023 Subsequent hospital visit by physician Arrival Time Radiology Work Phone: Radiology Pet CT Comment on above: Rectal cancer (HCC) [C20] Start: 06-21-2023 Orders Only Kaley marques MD Work Phone: Colorectal Surgery Comment on above: Rectosigmoid cancer (HCC) (Primary Dx) 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 Facility:[facility] Start: 08-22-2022 End: 08-23-[address] JUSTIN BUCKNER . Facility:[facility] Start: 07-07-2022 End: 07-08-2022 ambulatory BELEN BLOOM Facility: Procedures Date Procedure Procedure Detail Performing Clinician Start: 04-10-2025 Carcinoembryonic antigen cea Simba Mulligan Comment on above: Order Comment: Comme nt Add on to previous lab draw CANNOT ADD - NO GOLD TOP DRAWN - NOTIFIED NURSE ON 3T Result Comment: Seri al tumor marker results determined by assays using different manufacturers or methods may not be comparable. [facility] knit goods press hand and method: CANDIDO UNICEL DXI, 2 SITE IMMUNOENZYMATIC ?SANDWICH? ASSAY. PERFORMED BY: [place] [address] PATHOLOGIST REST ROOM MATRON JIM OLVERA M.D. Performed By: #### C #### [address] Start: 04-10-2025 CT angiography of head Justin Buckner MD Work Phone: Start: 04-10-2025 CT angiography of ne ck vessels Justin Buckner MD Work Phone: Start: 04-10-2025 CT of head without contrast Justin Buckner MD Work Phone: Start: 04-10-2025 Plain chest X-ray Beena Buckner MD Work Phone: Start: 02-09-2025 Ct abdomen & pelvis w/contrast material Jose Wing MD Work Phone: Start: 02-09-2025 Ct thorax w/contrast material Jose Wing MD Work Phone: Start: 02-09-2025 Blood count complete auto&auto difrntl wbc Jose Wing MD Work Phone: Start: 10-27-2024 Ct abdomen & pelvis w/contrast material Jose Wing MD Work Phone: Start: 10-27-2024 Ct thorax w/contrast material Jose Wing MD Work Phone: Start: 10-27-2024 Blood count complete auto&auto difrntl wbc Jose Wing MD Work Phone: Start: 08-04-2024 Colonoscopy flx dx w /collj spec when pfrmd Kaley Francois MD Work Phone: Start: 08-04-2024 Colonoscopy Kaley peck MD Work Phone: Start: 07-14-2024 Blood count complete auto&auto difrntl wbc Jose Wing MD Work Phone: Start: 02-22-2024 Antibody screen JUSTIN BUCKNER Comment on above: Order Comment: Speci men Type: BLOOD SPECIMENOrdering Facility: [facility] Address: [address] [place] [address] Performed By: #### T [facility] ####MAYO BLOOD BANKIA [id number] [address] [place] Start: 02-05-2024 Radiologic exam colo n single contrast study Kaley Francois MD Work Phone: Start: 01-11-2024 Blood count complete auto&auto difrntl wbc Jose Wing MD Work Phone: Start: 11-21-2023 Blood count complete auto&auto difrntl wbc Jose Wing MD Work Phone: Start: 11-07-2023 Ct abdomen & pelvis w/contrast material Jose Wing MD Work Phone: Start: 11-07-2023 Ct thorax w/contrast material Jose Wing MD Work Phone: Start: 11-07-2023 Blood count complete auto&auto difrntl wbc Jose Wing MD Work Phone: Start: 10-24-2023 Blood count complete auto&auto difrntl wbc Jose Wing MD Work Phone: Start: 08-13-2023 Ecg routine ecg w/le ast 12 lds i&r only Dao Dixon MD Work Phone: Start: 08-13-2023 Ct thorax w/o contra st material Dao Dixon MD Work Phone: Start: 07-13-[address] atten uation skull base mid-thigh Jose Wing MD Work Phone: Start: 07-13-2023 End: 07-13-2023 Blood count complete auto&auto difrntl wbc Jose Wing MD Work Phone: Start: 07-06-2023 Ct pelvis w/contrast material Kaley Francois MD Work Phone: Start: 06-22-2023 Ct abdomen w/contras t material Kaley Francois MD Work Phone: Start: 06-22-2023 Ct thorax w/contrast material Kaley Francois MD Work Phone: Start: 06-08-2023 Sigmoidoscopy flx dx w/collj spec br/wa if pfrmd Kaley Francois MD Work Phone: Start: 03-10-2020 Colonoscopy Salbador NI LL Colonoscopy Salbador NILL Excision of lipoma Salbador N ILL Comment on above: right flank Fallopian tube excision Keyon LEE Vaginal hysterectomy Salbador LEE Plan of Treatment Date Care Activity Detail Author Start: 03-27-2033 Urine microalbumin profile DTaP,Tdap,Td Vaccine (3 - Td or Tdap) [facility] Start: 06-08-2028 Colorectal Cancer Screening Colorectal Cancer Screening [facility] Start: 06-08-2028 Screening for malignant neoplasm of colon [facility] Start: 06-08-2028 SIGMOIDOSCOPY SIGMOIDOSCOPY [facility] Start: 02-10-2028 Diabetes Screening Diabetes Screening [facility] Start: 10-27-2027 Diabetes Screening Diabetes Screening [facility] Start: 07-14-2027 Diabetes Screening Diabetes Screening [facility] Start: 02-23-2027 Diabetes Screening Diabetes Screening [facility] Start: 01-29-2027 Diabetes Screening Diabetes Screening [facility] Start: 01-18-2027 Diabetes Screening Diabetes Screening [facility] Start: 01-16-2027 Diabetes Screening Diabetes Screening [facility] Start: 01-10-2027 Diabetes Screening Diabetes Screening [facility] Start: 01-01-2027 Diabetes Screening Diabetes Screening [facility] Start: 12-18-2026 Diabetes Screening Diabetes Screening [facility] Start: 11-20-2026 Diabetes Screening Diabetes Screening [facility] Start: 10-24-2026 Diabetes Screening Diabetes Screening [facility] Start: 10-10-2026 Diabetes Screening Diabetes Screening [facility] Start: 08-29-2026 Diabetes Screening Diabetes Screening [facility] Start: 07-13-2026 Diabetes Screening Diabetes Screening [facility] Start: 06-29-2026 Diabetes Screening Diabetes Screening [facility] Start: 08-27-2025 End: 08-27-2025 Follow-up encounter 08/27/2025 1:40 PM EST Visit (SP) Office Hematology/Oncology [facility] [place] [address] Jose Wing MD [address] [place] [address] 6 month follow up after CT scans Hematology/Oncology Comment on above: 6 [address] follow up after [address] scans Start: 08-20-2025 End: 08-20-2025 Carcinoembryonic Ag [Mass/volume] in Serum or Plasma CARCINOEMBRYONIC ANTIGEN Lab Routine Malignant neoplasm of rectum (HCC) Expected: 08/20/2025 (Approximate), Expires: 08/20/2025 [facility] Comment on above: Expected: 08/20/2025 (Approximate), Expi res: 08/20/2025 Start: 08-20-2025 End: 08-20-2025 CBC W Auto Differential panel - Blood COMPLETE BLOOD COUNT AND DIFFERENTIAL Lab Routine Malignant neoplasm of rectum (HCC) Expected: 08/20/2025 (Approximate), Expires: 08/20/2025 [facility] Comment on above: Expected: 08/20/2025 (Approximate), Expi res: 08/20/2025 Start: 08-20-2025 End: 08-20-2025 Comprehensive metabolic 2000 panel - Serum or Plasma COMPREHENSIVE METABOLIC PANEL Lab Routine Malignant neoplasm of rectum (HCC) Expected: 08/20/2025 (Approximate), Expires: 08/20/2025 [facility] Comment on above: Expected: 08/20/2025 (Approximate), Expi res: 08/20/2025 Start: 08-20-2025 End: 03-20-2026 CT Abdomen and Pelvis W contrast IV CT ABD/PEL W IVCON Radiology Routine Malignant neoplasm of rectum (HCC) Expected: 08/20/2025 (Approximate), Expires: 03/20/2026 [facility] Work Phone: Comment on above: Expected: 08/20/2025 (Approximate), Expi res: 03/20/2026 Start: 08-20-2025 End: 03-20-2026 CT Chest W contrast IV CT CHEST W IVCON Radiology Routine Malignant neoplasm of rectum (HCC) Expected: 08/20/2025 (Approximate), Expires: 03/20/2026 [facility] Comment on above: Expected: 08/20/2025 (Approximate), Expi res: 03/20/2026 Start: 08-20-2025 End: 08-20-2025 Patient encounter procedure 08/20/2025 8:45 AM EST Appointment Radiology Pet CT [address] [place] [address] [place] [address] CT CAP W IV port Radiology Pet CT Comment on above: CT CAP W IV port Start: 08-04-2025 Screening for malignant neoplasm of colon Colonoscopy [facility] Start: 05-21-2025 End: 05-21-2025 ambulatory 05/21/2025 9:00 AM EDT [facility] Hematology/Oncology [address] [facility] [place] [address] [facility] Hematology/Oncology Comment on above: [facility] Start: 04-13-2025 Comprehensive metabolic 2000 panel - Serum or Plasma [facility] Start: 04-13-2025 [facility] Start: 04-12-2025 Comprehensive metabolic 2000 panel - Serum or Plasma [facility] Start: 04-12-2025 [facility] Start: 04-11-2025 aPTT in Platelet poor plasma by Coagulation assay [facility] Start: 04-11-2025 Comprehensive metabolic 1999 panel - Serum or Plasma [facility] Start: 04-11-2025 End: 04-11-2025 [facility] Start: 04-10-2025 MRI of head MR head/brain wo con [facility] Start: 04-10-2025 Referral to neurologist [facility] Start: 04-10-2025 End: 04-10-2025 [facility] Start: 04-10-2025 Urine culture [facility] Start: 04-10-2025 Hospital admission [facility] Start: 04-10-2025 Bacteria identified in Urine by Culture Urine Culture [facility] Start: 02-18-2025 End: 02-18-2025 Follow-up encounter 02/18/2025 10:20 AM EDT Visit (SP) Office Hematology/Oncology [address] [place] [address] Jose Wing MD [address] [facility] [place] [address] 3 month follow up after ct scans and lab Hematology/Oncology Comment on above: 3 month follow up after [address] scans and lab Start: 02-16-2025 End: 02-16-2025 Follow-up encounter 02/16/2025 9:00 AM EDT Visit (SP) Office Hematology/Oncology [address] [facility] [place] [address] Jose Wing MD [address] [facility] [place] [address] 3 month follow up after ct scans and lab Hematology/Oncology Comment on above: 3 month follow up after ct scans and lab Start: 02-09-2025 End: 02-09-2025 Patient encounter procedure 02/09/2025 10:15 AM EDT Appointment Radiology Pet CT [address] [facility] [place] [address] Ct CAP with contrast lab port draw Radiology Pet CT Comment on above: Ct CAP with contrast lab port draw Start: 01-31-2025 End: 11-03-2025 Carcinoembryonic Ag [Mass/volume] in Serum or Plasma CARCINOEMBRYONIC ANTIGEN Lab Routine Malignant neoplasm of sigmoid colon (HCC) Thrombocytopenia (HCC) Fatty liver Expected: 01/31/2025 (Approximate), Expires: 11/03/2025 [facility] Comment on above: Expected: 01/31/2025 (Approximate), Expi res: 11/03/2025 Start: 01-31-2025 End: 11-03-2025 CBC W Auto Differential panel - Blood COMPLETE BLOOD COUNT AND DIFFERENTIAL Lab Routine Malignant neoplasm of sigmoid colon (HCC) Thrombocytopenia (HCC) Fatty liver Expected: 01/31/2025 (Approximate), Expires: 11/03/2025 [facility] Comment on above: Expected: 01/31/2025 (Approximate), Expi res: 11/03/2025 Start: 01-31-2025 End: 11-03-2025 Comprehensive metabolic 2000 panel - Serum or Plasma COMPREHENSIVE METABOLIC PANEL Lab Routine Malignant neoplasm of sigmoid colon (HCC) Thrombocytopenia (HCC) Fatty liver Expected: 01/31/2025 (Approximate), Expires: 11/03/2025 [facility] Comment on above: Expected: 01/31/2025 (Approximate), Expi res: 11/03/2025 Start: 01-31-2025 End: 12-03-2025 CT Abdomen and Pelvis W contrast IV CT ABD/PEL W IVCON Radiology Routine Malignant neoplasm of sigmoid colon (HCC) Thrombocytopenia (HCC) Fatty liver Expected: 01/31/2025 (Approximate), Expires: 12/03/2025 [facility] Work Phone: Comment on above: Expected: 01/31/2025 (Approximate), Expi res: 12/03/2025 Start: 01-31-2025 End: 12-03-2025 CT Chest W contrast IV CT CHEST W IVCON Radiology Routine Malignant neoplasm of sigmoid colon (HCC) Thrombocytopenia (HCC) Fatty liver Expected: 01/31/2025 (Approximate), Expires: 12/03/2025 [facility] Comment on above: Expected: 01/31/2025 (Approximate), Expi res: 12/03/2025 Start: 01-23-2025 BP Controlled (<130/80) BP Controlled (<130/80) [facility] in Start: 01-16-2025 BP Controlled (<130/80) BP Controlled (<130/80) [facility] Start: 11-24-2024 Covid-19 Vaccine (8 - Pfizer risk season) Covid-19 Vaccine (8 - Pfizer risk season) [facility] Start: 11-03-2024 End: 11-03-2024 Follow-up encounter 11/03/2024 9:20 AM EST Visit (SP) Office Hematology/Oncology [address] [place] [address] [place] [address] Jose Wing MD [address] [facility] [address] 3 month follow up for ct and lab results Hematology/Oncology Comment on above: 3 month follow up for [address] and lab results Start: 10-27-2024 End: 10-27-2024 Patient encounter procedure 10/27/2024 9:15 AM EST Appointment Radiology Pet CT [address] [facility] [place] [address] Ct CAP with contrast and lab port draw Radiology Pet CT Comment on above: Ct CAP with contrast and lab port draw Start: 10-14-2024 End: 01-13-2025 Carcinoembryonic Ag [Mass/volume] in Serum or Plasma CARCINOEMBRYONIC ANTIGEN Lab Routine Malignant neoplasm of sigmoid colon (HCC) Expected: 10/14/2024 (Approximate), Expires: 01/13/2025 [facility] Comment on above: Expected: 10/14/2024 (Approximate), Expi res: 01/13/2025 Start: 10-14-2024 End: 07-14-2025 CBC W Auto Differential panel - Blood COMPLETE BLOOD COUNT AND DIFFERENTIAL Lab Routine Malignant neoplasm of sigmoid colon (HCC) Expected: 10/14/2024 (Approximate), Expires: 07/14/2025 [facility] Comment on above: Expected: 10/14/2024 (Approximate), Expi res: 07/14/2025 Start: 10-14-2024 End: 07-14-2025 Cobalamin (Vitamin B12) [Mass/volume] in Serum or Plasma VITAMIN B12 Lab Routine Malignant neoplasm of sigmoid colon (HCC) Expected: 10/14/2024 (Approximate), Expires: 07/14/2025 [facility] Comment on above: Expected: 10/14/2024 (Approximate), Expi res: 07/14/2025 Start: 10-14-2024 End: 07-14-2025 Comprehensive metabolic 2000 panel - Serum or Plasma COMPREHENSIVE METABOLIC PANEL Lab Routine Malignant neoplasm of sigmoid colon (HCC) Expected: 10/14/2024 (Approximate), Expires: 07/14/2025 [facility] Comment on above: Expected: 10/14/2024 (Approximate), Expi res: 07/14/2025 Start: 10-14-2024 End: 08-13-2025 CT Abdomen and Pelvis W contrast IV CT ABD/PEL W IVCON Radiology Routine Malignant neoplasm of sigmoid colon (HCC) Expected: 10/14/2024 (Approximate), Expires: 08/13/2025 [facility] Comment on above: Expected: 10/14/2024 (Approximate), Expi res: 08/13/2025 Start: 10-14-2024 End: 08-13-2025 CT Chest W contrast IV CT CHEST W IVCON Radiology Routine Malignant neoplasm of sigmoid colon (HCC) Expected: 10/14/2024 (Approximate), Expires: 08/13/2025 [facility] Comment on above: Expected: 10/14/2024 (Approximate), Expi res: 08/13/2025 Start: 10-14-2024 End: 07-14-2025 Ferritin [Mass/volume] in Serum or Plasma FERRITIN Lab Routine Malignant neoplasm of sigmoid colon (HCC) Expected: 10/14/2024 (Approximate), Expires: 07/14/2025 [facility] Comment on above: Expected: 10/14/2024 (Approximate), Expi res: 07/14/2025 Start: 10-14-2024 End: 07-14-2025 Folate [Mass/volume] in Serum or Plasma FOLATE, SERUM Lab Routine Malignant neoplasm of sigmoid colon (HCC) Expected: 10/14/2024 (Approximate), Expires: 07/14/2025 [facility] Comment on above: Expected: 10/14/2024 (Approximate), Expi res: 07/14/2025 Start: 10-14-2024 End: 07-14-2025 Iron and Iron binding capacity panel - Serum or Plasma IRON AND TIBC Lab Routine Malignant neoplasm of sigmoid colon (HCC) Expected: 10/14/2024 (Approximate), Expires: 07/14/2025 [facility] Comment on above: Expected: 10/14/2024 (Approximate), Expi res: 07/14/2025 Start: 09-10-2024 Advance Directive Discussion Advance Directive Discussion [facility] Start: 08-18-2024 End: 08-18-2024 Follow-up encounter Hematology/Oncology Comment on above: follow up Start: 08-04-2024 End: 08-04-2024 Patient encounter procedure 08/04/2024 7:30 AM EST Appointment [facility] End[facility] - ENDO [id number] [place] [address] [place] [address] [place] [address] History of colon cancer [Z85.038] [facility] - ENDO Comment on above: History of colon cancer [Z85.038] Start: 07-22-2024 Covid-19 Vaccine () Covid-19 Vaccine () [facility] Start: 07-14-2024 End: 10-13-2024 Carcinoembryonic Ag [Mass/volume] in Serum or Plasma CARCINOEMBRYONIC ANTIGEN Lab Routine Malignant neoplasm of sigmoid colon (HCC) Expected: 07/14/2024, Expires: 10/13/2024 [facility] Work Phone: Comment on above: Expected: 07/14/2024, Expires: Start: 07-14-2024 End: 07-14-2024 Follow-up encounter Hematology/Oncology Comment on above: follow up lab per message/PORT draw follow up lab/PORT d raw Start: 07-01-2024 End: 07-01-2024 Patient encounter procedure 07/01/2024 9:00 AM EDT Office Visit Colorectal Surgery [address] [place] [address] [place] [address] [place] [address] 3 months follow up per KW Colorectal Surgery Comment on above: 3 months follow up per KW Start: 06-19-2024 End: 06-19-2024 Patient encounter procedure 06/19/2024 9:00 AM EDT Office Visit Colorectal Surgery [address] [id number] [place] [address] [place] [address] follow up illeosotmy Colorectal Surgery Comment on above: follow up illeosotmy Start: 05-11-2024 Covid-19 Vaccine ( season) Covid-19 Vaccine () [facility] Start: 05-11-2024 Influenza vaccination [facility] Start: 04-12-2024 End: 07-12-2024 Carcinoembryonic Ag [Mass/volume] in Serum or Plasma CARCINOEMBRYONIC ANTIGEN Lab Routine Malignant neoplasm of sigmoid colon (HCC) Expected: 04/12/2024 (Approximate), Expires: 07/12/2024 [facility] Comment on above: Expected: 04/12/2024 (Approximate), Expi res: 07/12/2024 Start: 04-12-2024 End: 01-10-2025 CBC W Auto Differential panel - Blood COMPLETE BLOOD COUNT AND DIFFERENTIAL Lab Routine Malignant neoplasm of sigmoid colon (HCC) Expected: 04/12/2024 (Approximate), Expires: 01/10/2025 [facility] Work Phone: Comment on above: Expected: 04/12/2024 (Approximate), Expi res: 01/10/2025 Start: 04-12-2024 End: 01-10-2025 Cobalamin (Vitamin B12) [Mass/volume] in Serum or Plasma VITAMIN B12 Lab Routine Malignant neoplasm of sigmoid colon (HCC) Expected: 04/12/2024 (Approximate), Expires: 01/10/2025 [facility] Comment on above: Expected: 04/12/2024 (Approximate), Expi res: 01/10/2025 Start: 04-12-2024 End: 01-10-2025 Comprehensive metabolic 2000 panel - Serum or Plasma COMPREHENSIVE METABOLIC PANEL Lab Routine Malignant neoplasm of sigmoid colon (HCC) Expected: 04/12/2024 (Approximate), Expires: 01/10/2025 [facility] Comment on above: Expected: 04/12/2024 (Approximate), Expi res: 01/10/2025 Start: 04-12-2024 End: 01-10-2025 Ferritin [Mass/volume] in Serum or Plasma FERRITIN Lab Routine Malignant neoplasm of sigmoid colon (HCC) Expected: 04/12/2024 (Approximate), Expires: 01/10/2025 [facility] Comment on above: Expected: 04/12/2024 (Approximate), Expi res: 01/10/2025 Start: 04-12-2024 End: 01-10-2025 Folate [Mass/volume] in Serum or Plasma FOLATE, SERUM Lab Routine Malignant neoplasm of sigmoid colon (HCC) Expected: 04/12/2024 (Approximate), Expires: 01/10/2025 [facility] Comment on above: Expected: 04/12/2024 (Approximate), Expi res: 01/10/2025 Start: 04-12-2024 End: 01-10-2025 Iron and Iron binding capacity panel - Serum or Plasma IRON AND TIBC Lab Routine Malignant neoplasm of sigmoid colon (HCC) Expected: 04/12/2024 (Approximate), Expires: 01/10/2025 [facility] Comment on above: Expected: 04/12/2024 (Approximate), Expi res: 01/10/2025 Start: 04-11-2024 End: 04-11-2024 Follow-up encounter Hematology/Oncology Comment on above: 3 month follow up lab/PORT draw Start: 03-20-2024 End: 03-20-2024 Patient encounter procedure 03/20/2024 12:20 PM EDT Office Visit Colorectal Surgery [address] [facility] [address] [place], [place] [id number] Mesha Ortega APRN.[employer]ILD[employer] PREVENTION SPECIALIST [address] [facility] [address] [place] [address] post op/closure ileostomey/02/21/[place] Colorectal Surgery Comment on above: post op/closure ileostomey/02/21/[place] Start: 02-22-2024 End: 02-22-2024 Admission to same day surgery center 02/22/2024 7:30 AM EDT - 02/22/2024 10:10 AM EDT Surgery [facility] Operating Room [id number] [place] [address] [place] [address] [place] [address] CLOSURE ILEOSTOMY [facility] Comment on above: CLOSURE ILEOSTOMY Start: 02-22-2024 End: 02-22-2024 Closure enterostomy lg/small intestine CLOSURE ILEOSTOMY Attention to ileostomy (HCC) Malignant neoplasm of sigmoid colon (HCC) 02/22/2024 7:30 AM EDT [facility] OR Start: 02-22-2024 End: 02-22-2024 Sigmoidoscopy flx dx w/collj spec br/wa if pfrmd SIGMOIDOSCOPY FLEXIBLE Attention to ileostomy (HCC) Malignant neoplasm of sigmoid colon (HCC) 02/22/2024 7:30 AM EDT [facility] OR Start: 02-22-2024 Subsequent hospital visit by physician [facility] Comment on above: Attention to ileostomy (HCC) [Z43.2], Ma lignant neoplasm of sigmoid colon (HCC) [C18.7] Start: 02-07-2024 End: 05-08-2024 CBC W Auto Differential panel - Blood COMPLETE BLOOD COUNT AND DIFFERENTIAL Lab Routine Preoperative examination Expected: 02/07/2024 (Approximate), Expires: 05/08/2024 [facility] Comment on above: Expected: 02/07/2024 (Approximate), Expi res: 05/08/2024 Start: 02-07-2024 End: 05-08-2024 Comprehensive metabolic 2000 panel - Serum or Plasma COMPREHENSIVE METABOLIC PANEL Lab Routine Attention to ileostomy (HCC) Preoperative examination Expected: 02/07/2024 (Approximate), Expires: 05/08/2024 [facility] Comment on above: Expected: 02/07/2024 (Approximate), Expi res: 05/08/2024 Start: 02-05-2024 End: 02-05-2024 Patient encounter procedure 02/05/2024 9:00 AM EDT Appointment Radiology [address] [place] [address] [facility]GE Attention to ileostomy (HCC) [Z43.2], Dr Kaley Francois, order in [employer], sched w/pt Radiology Comment on above: GGE Attention to ileostomy (HCC) [Z43.2] , Dr Kaley Francois, order in [employer], sched w/pt Start: 02-03-2024 Advance Directive Discussion Advance Directive Discussion [facility] Start: 02-03-2024 Screening for osteoporosis Bone Density Screening [facility] Start: 01-24-2024 End: 02-23-2025 RF Colon Views W barium contrast ID XR COLON SINGLE CONTRAST Radiology Routine Attention to ileostomy (HCC) Expected: 01/24/2024, Expires: 02/23/2025 [facility] Comment on above: Expected: 01/24/2024, Expires: Start: 01-17-2024 End: 01-17-2024 Patient encounter procedure 01/17/2024 2:20 PM EDT Office Visit Colorectal Surgery [address] [place] [address] Mesha Ortega APRN.[employer] PRE[employer] SPECIALIST [address], [place] [place] [id number] post op 12/27 partial colectomy Colorectal Surgery Comment on above: post op 12/27 partial colectomy Start: 01-11-2024 End: 04-11-2024 Carcinoembryonic Ag [Mass/volume] in Serum or Plasma [facility] Work Phone: Comment on above: Expected: 01/11/2024, Expires: Start: 01-11-2024 End: 04-11-2024 Comprehensive metabolic 2000 panel - Serum or Plasma COMP METABOLIC PANEL Lab Routine Malignant neoplasm of sigmoid colon (HCC) Expected: 01/11/2024, Expires: 04/11/2024 [facility] Work Phone: Comment on above: Expected: 01/11/2024, Expires: Start: 01-11-2024 End: 01-11-2024 Follow-up encounter 01/11/2024 10:00 AM EDT Visit (SP) Office Hematology[facility]Oncology [address] [facility] [place] [address] Jose Wing MD [address] [facility] [place] [address] follow up Hematology/Oncology Comment on above: follow up Start: 01-11-2024 End: 01-11-2024 ambulatory 01/11/2024 9:45 AM EDT Infusion Center Hematology/Oncology [address] [facility] [place] [address] CBC, CMP, CEA Hematology/Oncology Comment on above: CBC, CMP, CEA Start: 01-09-2024 Medicare Annual Wellness Visit Medicare Annual Wellness Visit [facility] Start: 11-07-2023 End: 10-24-2024 Carcinoembryonic Ag [Mass/volume] in Serum or Plasma CEA BLD Lab Routine Malignant neoplasm of descending colon (HCC) Expected: 11/07/2023 (Approximate), Expires: 10/24/2024 [facility] Work Phone: Comment on above: Expected: 11/07/2023 (Approximate), Expi res: 10/24/2024 Start: 11-07-2023 End: 10-24-2024 CBC W Auto Differential panel - Blood CBC + DIFF Lab Routine Malignant neoplasm of descending colon (HCC) Expected: 11/07/2023 (Approximate), Expires: 10/24/2024 [facility] Work Phone: Comment on above: Expected: 11/07/2023 (Approximate), Expi res: 10/24/2024 Start: 11-07-2023 End: 10-24-2024 Comprehensive metabolic 2000 panel - Serum or Plasma COMP METABOLIC PANEL Lab Routine Malignant neoplasm of descending colon (HCC) Expected: 11/07/2023 (Approximate), Expires: 10/24/2024 [facility] Work Phone: Comment on above: Expected: 11/07/2023 (Approximate), Expi res: 10/24/2024 Start: 11-07-2023 End: 11-22-2024 CT Abdomen and Pelvis W contrast IV CT ABD/PEL W IVCON Radiology Routine Malignant neoplasm of descending colon (HCC) Expected: 11/07/2023 (Approximate), Expires: 11/22/2024 [facility] Work Phone: Comment on above: Expected: 11/07/2023 (Approximate), Expi res: 11/22/2024 Start: 11-07-2023 End: 11-22-2024 CT Chest W contrast IV CT CHEST W IVCON Radiology Routine Malignant neoplasm of descending colon (HCC) Expected: 11/07/2023 (Approximate), Expires: 11/22/2024 [facility] Work Phone: Comment on above: Expected: 11/07/2023 (Approximate), Expi res: 11/22/2024 Start: 09-10-2023 Behavioral Health Screening Behavioral Health Screening [facility] Start: 09-10-2023 Depression Assessment Depression Assessment [facility] Start: 08-29-2023 End: 08-21-2024 Carcinoembryonic Ag [Mass/volume] in Serum or Plasma CEA BLD Lab Routine Malignant neoplasm of sigmoid colon (HCC) Iron deficiency anemia due to chronic blood loss Expected: 08/29/2023 (Approximate), Expires: 08/21/2024 [facility] Work Phone: Comment on above: Expected: 08/29/2023 (Approximate), Expi res: 08/21/2024 Start: 08-29-2023 End: 08-21-2024 CBC W Auto Differential panel - Blood CBC + DIFF Lab Routine Malignant neoplasm of sigmoid colon (HCC) Iron deficiency anemia due to chronic blood loss Expected: 08/29/2023 (Approximate), Expires: 08/21/2024 [facility] Work Phone: Comment on above: Expected: 08/29/2023 (Approximate), Expi res: 08/21/2024 Start: 08-29-2023 End: 08-21-2024 Cobalamin (Vitamin B12) [Mass/volume] in Serum or Plasma VITAMIN B12 BLOOD Lab Routine Malignant neoplasm of sigmoid colon (HCC) Iron deficiency anemia due to chronic blood loss Expected: 08/29/2023 (Approximate), Expires: 08/21/2024 [facility] Work Phone: Comment on above: Expected: 08/29/2023 (Approximate), Expi res: 08/21/2024 Start: 08-29-2023 End: 08-21-2024 Comprehensive metabolic 2000 panel - Serum or Plasma COMP METABOLIC PANEL Lab Routine Malignant neoplasm of sigmoid colon (HCC) Iron deficiency anemia due to chronic blood loss Expected: 08/29/2023 (Approximate), Expires: 08/21/2024 [facility] Work Phone: Comment on above: Expected: 08/29/2023 (Approximate), Expi res: 08/21/2024 Start: 08-29-2023 End: 08-21-2024 Ferritin [Mass/volume] in Serum or Plasma FERRITIN BLD Lab Routine Malignant neoplasm of sigmoid colon (HCC) Iron deficiency anemia due to chronic blood loss Expected: 08/29/2023 (Approximate), Expires: 08/21/2024 [facility] Work Phone: Comment on above: Expected: 08/29/2023 (Approximate), Expi res: 08/21/2024 Start: 08-29-2023 End: 08-21-2024 Folate [Mass/volume] in Serum or Plasma FOLATE SERUM Lab Routine Malignant neoplasm of sigmoid colon (HCC) Iron deficiency anemia due to chronic blood loss Expected: 08/29/2023 (Approximate), Expires: 08/21/2024 [facility] Work Phone: Comment on above: Expected: 08/29/2023 (Approximate), Expi res: 08/21/2024 Start: 08-29-2023 End: 08-21-2024 Iron and Iron binding capacity panel - Serum or Plasma IRON + TIBC Lab Routine Malignant neoplasm of sigmoid colon (HCC) Iron deficiency anemia due to chronic blood loss Expected: 08/29/2023 (Approximate), Expires: 08/21/2024 [facility] Work Phone: Comment on above: Expected: 08/29/2023 (Approximate), Expi res: 08/21/2024 Start: 08-21-2023 End: 11-20-2023 MISC SEND OUT TST 1 [facility] Work Phone: Comment on above: Expected: 08/21/2023, Expires: Start: 08-04-2023 Covid-19 Vaccine (2022- season) Covid-19 Vaccine ( season) [facility] Start: 06-29-2023 End: 06-29-2024 CBC W Auto Differential panel - Blood CBC + DIFF Lab Routine Malignant neoplasm of sigmoid colon (HCC) Iron deficiency anemia due to chronic blood loss Expected: 06/29/2023, Expires: 06/29/2024 [facility] Work Phone: Comment on above: Expected: 06/29/2023, Expires: Start: 06-29-2023 End: 06-29-2024 Comprehensive metabolic 2000 panel - Serum or Plasma COMP METABOLIC PANEL Lab Routine Malignant neoplasm of sigmoid colon (HCC) Iron deficiency anemia due to chronic blood loss Expected: 06/29/2023, Expires: 06/29/2024 [facility] Work Phone: Comment on above: Expected: 06/29/2023, Expires: Start: 05-11-2023 Covid-19 Vaccine ( season) Covid-19 Vaccine ( season) [facility] Start: 05-11-2023 Influenza vaccination [facility] Start: 02-09-2023 Screening for malignant neoplasm of colon Cologuard (FIT-DNA) [facility] Start: 09-10-2022 Depression Assessment Depression Assessment [facility] Start: 2019 Hepatitis B Vaccine (1 of 3 - Risk 3-dose series) Hepatitis B Vaccine (1 of 3 - Risk 3-dose series) [facility] Start: 2009 Pneumococcal Vaccine: 50+ (1 of 1 - PCV) Pneumococcal Vaccine: 50+ (1 of 1 - PCV) [facility] Start: 2009 Shingrix Vaccine (1 of 2) Shingrix Vaccine (1 of 2) [facility] Start: 02-03-2004 Cologuard (FIT-DNA) Cologuard (FIT-DNA) [facility] Start: 02-03-2004 Colonoscopy Colonoscopy [facility] Start: 02-03-[address] COLONOGRAPHY [facility] Start: 02-03-2004 Diabetes Screening Diabetes Screening [facility] Start: 02-03-2004 Fecal Occult Blood Fecal Occult Blood [facility] Start: 02-03-2004 Lipid 1996 panel - Serum or Plasma Lipid Screening [facility] Start: 02-03-2004 Lipid panel Lipid Screening [facility] Start: 02-03-2004 Screening for malignant neoplasm of colon [facility] Start: 1999 Mammography Mammogram Screening [facility] Start: 1999 Screening for malignant neoplasm of breast Mammogram Screening [facility] Start: 1989 HPV Testing HPV Testing [facility] Start: 1989 Screening for malignant neoplasm of cervix HPV Testing [facility] Start: 02-03-1980 Pap Testing Pap Testing [facility] Start: 02-03-1980 Screening for malignant neoplasm of cervix Pap Testing [facility] Start: 1978 Hepatitis A Vaccine (1 of 2 - Risk 2-dose series) Hepatitis A Vaccine (1 of 2 - Risk 2-dose series) [facility] Start: 1978 Pneumococcal Vaccine: 50+ (1 of 2 - PCV) Pneumococcal Vaccine: 50+ (1 of 2 - PCV) [facility] Start: 1978 Urine microalbumin profile DTaP,Tdap,Td Vaccine (1 - Tdap) [facility] Start: 1977 Annual PCP Team Chronic Disease Visit Annual PCP Team Chronic Disease Visit [facility] Start: 1977 Anxiety Screening Anxiety Screening [facility] Start: 1977 BP Controlled (<130/80) BP Controlled (<130/80) [facility] Start: 1977 Depression Screening Depression Screening [facility] Start: 1977 Hepatitis C Screening Hepatitis C Screening [facility] Start: 1977 Hepatitis C screening Hepatitis C Screening [facility] Start: 1977 HIV Screening HIV Screening [facility] Start: 1977 HIV screening HIV Screening [facility] Start: 1970 Screening for malignant neoplasm of cervix Cervical Cancer Screening [facility] Start: 1965 Pneumococcal vaccination [facility] Start: 1965 Pneumococcal Vaccine: 65+ (1 of 2 - PCV) Pneumococcal Vaccine: 65+ (1 of 2 - PCV) [facility] Carcinoembryonic Ag [Mass/volume] in Serum or Plasma CARCINOEMBRYONIC ANTIGEN Lab Routine Malignant neoplasm of sigmoid colon (HCC) 10/27/2024 8:59 AM EST [facility] Work Phone: Carcinoembryonic Ag [Mass/volume] in Serum or Plasma CARCINOEMBRYONIC ANTIGEN Lab Routine Malignant neoplasm of sigmoid colon (HCC) Thrombocytopenia Fatty liver 02/09/2025 9:43 AM EDT [facility] Work Phone: Closure enterostomy lg/small intestine CLOSURE ILEOSTOMY Attention to ileostomy (HCC) Malignant neoplasm of sigmoid colon (HCC) [facility] ECG COMPLETE ECG COMPLETE ECG Routine Lung nodule 08/13/2023 8:09 AM EST [facility] Work Phone: End: 01-23-2025 Flexible sigmoidoscopy study SIGMOIDOSCOPY Endoscopy Routine Attention to ileostomy (HCC) 1 Occurrences starting 01/24/2024 until 01/23/2025 [facility] Work Phone: Comment on above: 1 Occurrences starting 01/24/2024 until 01/23/2025 OUTSIDE SURG PATH SL LISETTE REVIEW OUTSIDE SURG PATH SLIDE REVIEW Lab Routine Ordered: 06/12/2023 [facility] Work Phone: Comment on above: Ordered: 06/12/2023 Patient Education Know your Meds [facility] Work Phone: Patient referral [facility] Work Phone: End: 07-28-[address] attenuation skull base mid-thigh NM PET/CT SKULL-THIGH INITIAL Radiology Routine Malignant neoplasm of sigmoid colon (HCC) Iron deficiency anemia due to chronic blood loss 1 Occurrences starting 06/29/2023 until 07/28/2024 [facility] Work Phone: Comment on above: 1 Occurrences starting 06/29/2023 until 07/28/2024 End: 06-19-2025 Screening colonoscopy COLONOSCOPY SCREENING Endoscopy Routine History of colon cancer 1 Occurrences starting 06/19/2024 until 06/19/2025 [facility] Work Phone: Comment on above: 1 Occurrences starting 06/19/2024 until 06/19/2025 Sigmoidoscopy flx dx w/collj spec br/wa if pfrmd SIGMOIDOSCOPY FLEXIBLE Attention to ileostomy (HCC) Malignant neoplasm of sigmoid colon (HCC) [facility] SURGICAL PATHOLOGY [facility] Work Phone: Comment on above: Release Upon Ordering for 1 Occurrences starting 08/04/2024, 1 completed [facility] Immunizations Immunization Date Immunization Notes Care Provider Aaron lemons 05-27-2024 influenza, high dose seasonal, preservative-free [facility] Work Phone: [facility] 06-27-2023 respiratory syncytia l virus (RSV) vaccine, adjuvanted (AREXVY) Jose Wing MD Work Phone: [facility] 06-09-2023 Influenza, injectabl e, Madin [place] Canine Kidney, preservative free, quadrivalent Jose Wing MD Work Phone: [facility] 06-09-2023 influenza virus vaccine, unspecified formulation Mesha Ortega APRN.[facility] Work Phone: [facility] 03-27-2023 tetanus toxoid, redu juancho diphtheria toxoid, and acellular pertussis vaccine, adsorbed Jose Wing MD Work Phone: [facility] 06-21-2022 influenza, injectabl e, quadrivalent, contains preservative Jose Wing MD Work Phone: [facility] 06-21-2022 influenza virus vaccine, unspecified formulation Kaley Francois MD Work Phone: [facility] 06-07-2022 SARS-CoV-2 (COVID-19 ) [id number] Salbador LEE [facility] Comment on above: Result Comment: 2022: [id number] 12-24-2021 SARS-CoV-2 mRNA ([id number] se) vaccine Salbador LEE [facility] 06-13-2021 SARS-CoV-2 (COVID-19 ) mRNA BNT-162b2 vax Salbador LEE [facility] 11-16-2020 SARS-CoV-2 (COVID-19 ) mRNA BNT-162b2 vax Salbador LEE [facility] Comment on above: Result Comment: 2022: [id number] 10-26-2020 SARS-CoV-2 (COVID-19 ) mRNA BNT-162b2 erica LEE [facility] Comment on above: Result Comment: 2022: [id number] 05-27-2020 influenza, injectabl e, quadrivalent, contains preservative Jose Wing MD Work Phone: [facility] 07-16-2019 influenza, injectabl e, quadrivalent, contains preservative Jose Wing MD Work Phone: [facility] 06-23-2019 influenza, seasonal, injectable Jose Wing MD Work Phone: [facility] 04-01-2019 zoster vaccine recombinant Jose Wing MD Work Phone: [facility] 10-02-2018 zoster vaccine recombinant Jose Wing MD Work Phone: [facility] 06-18-2018 influenza, injectabl e, quadrivalent, contains preservative Jose Wing MD Work Phone: [facility] 07-17-2017 influenza, injectabl e, quadrivalent, contains preservative Jose Wing MD Work Phone: [facility] 07-01-2015 influenza, seasonal, injectable, preservative free Jose Wing MD Work Phone: [facility] 01-22-2015 zoster vaccine, live Jose hollis MD Work Phone: [facility] 06-02-2013 tetanus toxoid, redu juancho diphtheria toxoid, and acellular pertussis vaccine, adsorbed Jose Wing MD Work Phone: [facility] Payers Date Payer Category Payer Self-pay 2025 Private Health Insurance [employer]MO MED ICARE SUPPLEMENT Member Subscriber Plan / Payer (Effective 2025-Present) Name: Nancy Sue Relation to Subscriber: Self Name: Nancy Sue Payer ID: Not on file Type: Indemnity Address: [place] [id number] 2024 Medicare [id number] 2024 Medicare [id number] 2023 Medicare [id number] 2021 Unknown [id number] 1960 Unknown [id number] 1960 Unknown [id number] 1959 Unknown [id number] 1960 Unknown [id number] 1960 Unknown [id number] Unknown [id number] Social History Date Type Detail Facility Start: 05-08-2023 End: 06-29-2023 Tobacco smoking status Never smoked tobacco (finding) [facility] Start: 06-04-2023 Tobacco smoking status Never [facility] Start: 06-05-2023 End: 02-24-2024 Sex Assigned At Female [facility] Start: 06-05-2023 [facility] Start: 06-05-2023 End: 02-24-2024 History of Social function [facility] Start: 1960 Sex Assigned At Not on file [facility] Start: 06-29-2023 Tobacco use and exposure Smokeless tobacco non-user [facility] Start: 06-29-2023 End: 11-03-2024 Alcohol intake Current drinker of alcohol (finding) [facility] Start: 06-29-2023 Alcohol Comment socially [facility] Start: 08-13-2023 Alcohol Comment 2 drinks a cou ple times a month [facility] Has the citysocializer, [employer], or water [employer] threatened to shut off services in your home in past 12Mo No [facility] (I/We) worried wheth er (my/our) food would run out before (I/we) got money to buy more. Never true [facility] Start: 1960 Sex Assigned At Female F [facility] Sex Female (finding) [facility] Medical Equipment Procedure Code Equipment Code Equipment Origin al Text Equipment Identifier Dates Power Port-08/15/2023 [id number] Sta rt: 08-15-2023 Hemoblast Bellow s And 1 Ea Short 10 Cm Cannula - [id number] Start: 12-28-2023 Laparoscopic Applicators - [id number] Start: 12-28-2023 Goals Date Patient Goal Desired Activity /State Functional Status Date Assessment Result Facility 04-10-2025 Functional status Patient at Baseline [facility] Work Phone: 02-24-2024 Are you deaf, or do you have serious difficulty hearing No 02/24/2024 12:04 PM Shreya Nam, MONET [facility] 02-24-2024 Are you blind, or do you have serious difficulty seeing, even when wearing glasses No 02/24/2024 12:04 PM Shreya Nam, MONET No [facility] 02-24-2024 Do you have serious difficulty walking or climbing stairs No 02/24/2024 12:04 PM Shreya Nam, MONET [facility] 02-24-2024 Do you have difficul ty dressing or bathing No 02/24/2024 12:04 PM Shreya Nam RN No [facility] 02-24-2024 Because of a physica l, mental, or emotional condition, do you have difficulty doing errands alone such as visiting a physician's office or shopping No 02/24/2024 12:04 PM Shreya Nam RN No [facility] 05-08-2023 Functional Status N/A [facility] Mental Status Date Assessment Result Facility 04-10-2025 Cognitive function Cognitive Sta tus Patient at Baseline [facility] Work Phone: 02-24-2024 Because of a physica l, mental, or emotional condition, do you have serious difficulty concentrating, remembering, or making decisions No 02/24/2024 12:04 PM Shreya Nam RN No [facility] Clinical Notes 06-08-2023 to 05-26-2025 Note Date & Type Note Facility 05-26-2025 Note Cardiovascular Medic ine [facility] SUBJECTIVE Chief Complaint Patient presents with Hyperlipidemia Recently started on atorvastatin. She's taking it every other day and tolerating that, minimal myalgias. Transient Ischemic Attack Recent TIA, treated at [facility]. All workup was normal. Denies recurrent stroke-like symptoms. Nancy Sue is a 65 y.o. female here for follow-up. Last seen Jun, 2022. PMHx: HTN, colon CA HPI 05/26/2025 Last month she presented to [facility] with c/o left sided facial droop/drooling, slurred speech, some trouble walking. She didn't have any confusion. Sx's lasted and then improved. She was diagnosed with a TIA. She notes prior to event, she wasn't doing anything strenuous. She was in the bottom of her boat and she couldn't walk up the stairs. Her saw her and noticed that she had the facial droop and drooling. She has since then been on ASA and lipitor. She notes hx of statin intolerance while on pravastatin. Currently tolerating Lipitor every other day. She has mild muscle/joint aching. PSH: no pertinent cardiac surgery or procedures. FMH- no early heart disease, mother with hx of stroke, father with pacemaker, 2 brothers and sister with hx of a.fib. Social- Never a smoker, social alcohol and denied illicit drug use. Problem List[1] Medical History[2] Family History[3] Social History[4] Allergies[5] OBJECTIVE Visit Vitals BP 126/80 (BP Location: Left arm, Patient Position: Sitting) Pulse 84 Ht 1.676 m (5' 6 ) Wt 93.4 kg (206 lb) SpO2 97% BMI 33.25 kg/m??? Smoking Status Never BSA 2.09 m??? Medications: Current Medications[6] Physical Exam Vitals reviewed. Constitutional: Appearance: Normal appearance. HENT: Head: Normocephalic and atraumatic. Right Ear: External ear normal. Left Ear: External ear normal. Eyes: Extraocular Movements: Extraocular movements intact. Conjunctiva/sclera: Conjunctivae normal. Pupils: Pupils are equal, round, and reactive to light. Neck: Vascular: No carotid bruit. Cardiovascular: Rate and Rhythm: Normal rate and regular rhythm. Pulses: Normal pulses. Heart sounds: Normal heart sounds. Comments: Premature beat heard on exam Pulmonary: Effort: Pulmonary effort is normal. Breath sounds: Normal breath sounds. Abdominal: General: Bowel sounds are normal. Palpations: Abdomen is soft. Musculoskeletal: Cervical back: Neck supple. Right lower leg: Edema present. Left lower leg: Edema present. Comments: Trace BLE edema on exam Skin: General: Skin is warm and dry. Neurological: General: No focal deficit present. Mental Status: She is alert and oriented to person, place, and time. Psychiatric: Mood and Affect: Mood normal. Behavior: Behavior normal. Thought Content: Thought content normal. Judgment: Judgment normal. Labs: No results found for: EXTCMP , BMPR1A , CBCDIF , BNP , LASAP , RED No visits with results within 6 Month(s) from this visit. Latest known visit with results is: No results found for any previous visit. Labs 04/11/2025 Cr 0.92, BUN 12, eGFR >60, K 3.7, Na 139, AST 17, ALT 15 Mag 2.1 Chol 176, HDL 37, trig 143, calc LDL 110 WBC 4.8, hgb 12.6, plt 122 04/11/17- CBC normal, K+ 4.7, BUN 22, CR 0.81- normal AST 45, ALT 60, ALP 61- slightly elevated LDL 78, Chol 144, HDL 45, Trig 116 Testing/Procedures: ECHO 04/10/2025 EF 65-70% No RWMA No LV thrombus or mass seen LA/RA normal in size No significant valvular dysfunction 09/28/15 Echo Stress test 09/28/2015- EKG reviewed 09/13/2015- ASSESSMENT/PLAN: Diagnoses and all orders for this visit: TIA (transient ischemic attack) - Cardiac event monitor; Future - Comprehensive metabolic panel; Future - Lipid panel; Future - Complete Echo (TTE) w/wo Imaging Agent, Strain, 3D, Bubble Study; Future Mixed hyperlipidemia - Comprehensive metabolic panel; Future - Lipid panel; Future #TIA -Occurred in April,. ECHO during her admission did not include a bubble study. -Will order for a repeat TTE with a bubble study to rule out PFO/ASD. -Will also place an event monitor to rule out arrhythmias specifically a.fib/flutter. #HLD -Recent LDL was 110. -Given recent TIA event, recommend LDL <70. -Currently tolerating atorvastatin 20mg every other day with minimal myalgias. -Will recheck lipid levels to see how this has helped. Of note, she has a prior hx of intolerance to pravastatin and rosuvastatin. Follow up in about 3 months (around 08/25/2025). Hong Fernandez, MONTEZ [facility] Cardiovascular Medicine [1] Patient Active Problem List Diagnosis Abnormal liver enzymes Diverticulitis Electrocardiogram abnormal Lipoma of skin Nonalcoholic fatty liver disease GERD (gastroesophageal reflux disease) Elevated blood pressure reading without diagnosis of hypertension Mixed hyperlipidemia BMI 38.0-38.9,adult Change in bowel habits Div (more content not included)... [facility] 04-10-2025 Evaluation note Diagnosis Onset Date Resolution TIA (transient ischemic attack) acute April 10 3:02pm [facility] Work Phone: 1(747) 150-107508-01-2025 Evaluation note* Diagnosis Onset Date Resolution Status Admit Date History of colon cancer acute A ugust 2024 3:02pm TIA (transient ischemic attack) acut e April 10, 2025 3:02pm [facility] Work Phone: 1(373) 461-699908-01-2025 Radiology Diagnostic study [facility] [place] [address] [place] [address] CT Scan Report Signed Patient: Nancy Sue MR#: [id number] : 1960 Acct:[id number] Age/Sex: 65 / F ADM Date: 5 Loc: ER Room: Type: [facility] ER Attending Dr: Copies to: Jairo Cuenca PA-C~ Ordering Provider: Jairo Cuenca PA-C Date of Service: 04/10/25 CT/CT angio neck: acute stroke/neuro deficits ([id number]) CT/CT angio head: acute stroke/neuro deficits CT angio head, CT angio neck 04/10/2025 1:56 PM SIGNS AND SYMPTOMS: Imbalance, right-sided facial droop, speech difficulty CONTRAST: 80 mL of intravenous Isovue-370 TECHNIQUE: Multi-detector CT angiography axial slices of the head and neck were obtained during intravenous administration of IV contrast material. Sagittal, coronal, and 3-D reconstructions were performed and viewed on a separate workstation. CT was performed with one or more of the following dosereduction techniques: Automated exposure control, adjustment of the mA and/or kV accordingto patient size, or use of iterative reconstruction technique. Stenoses were measured using the NASCET criteria. COMPARISON: None. FINDINGS: CTA HEAD: The superior cerebellar arteries, posterior inferior cerebellar arteries, and the basilar artery are within normal limits. The posterior cerebral arteries areunremarkable. The intracranial segments of the internal carotid arteries are within normal limits. There are normal anterior and middle cerebral arteries. Anterior communicating artery is patent. Posterior communicating arteries are present. The deep venous system and dural venous systems appear to be patent. No bony abnormalities are appreciated. CTA NECK: There is a normal three-vessel arch. The subclavian arteries are within normal limits. The vertebral arteries arise from the subclavian arteries and are normal in course and caliber up to the skull base. Calcified plaque is noted inthe carotid bifurcations without significant stenosis. Visualized lung parenchyma is clear. Degenerative changes are noted in the cervical spine. No acutebony abnormalities are identified. The paraspinous soft tissues are within normal limits. CT/CT angio head IMPRESSION: No evidence of focal stenosis, aneurysmal dilatation, dissection or occlusion. Impression dictated by: Isai Geller M.D. 04/10/2025 2:30 PM Dictation Location: [place] [address] Transcribed By: YANIRA 04/10/25 1430 Dictated By: Isai Geller II, MD 04/10/25 1418 Signed By: 04/10/25 1430 [facility] Work Phone: 1(809) 506-742008-01-2025 Radiology Diagnostic study [facility] [place] [address] [place] [address] CT Scan Report Signed Patient: Nancy Sue MR#: [id number] : 1960 Acct:[id number] Age/Sex: 65 / F ADM Date: 5 Loc: ER Room: Type: PRE ER Attending Dr: Copies to: Jairo Cuenca PA-C~ Ordering Provider: Jairo Cuenca PA-C Date of Service: 04/10/25 CT/CT head stroke alert wo con: acute stroke/neuro deficits CT head stroke alert wo con 04/10/2025 1:51 PM SIGNS AND SYMPTOMS: ^acute stroke/neuro deficits, facial droop, altered mental status TECHNIQUE:Multi-detector CT axial slices of the brain were obtained without IV contrast. CT was performed with one or more of the following dose reduction techniques: Automated exposure control, adjustment of the mA and/or kV accordingto patient size, or use of iterative reconstruction technique. COMPARISON: None. FINDINGS: There is no shift of the midline structures, acute intracranial bleeding, mass effects, or evidence of acute ischemia. Atherosclerotic changes are noted in the intracranial segments of the internal carotid arteries. The ventricular system is normal in size. The brainstem and the cerebellum are unremarkable. The visualized intraorbital contents, the visualized paranasal sinuses, and the infratemporal soft tissues show no acute abnormality. The osseous structures in the skull base and the calvarium show no abnormality. CT/CT head stroke alert wo con IMPRESSION: No acute intracranial pathology. Findings were discussed with Jairo Cuenca at 1:53 PM on a 09/29/2024. Impression dictated by: Isai Geller M.D. 04/10/2025 1:54 PM Dictation Location: [place] [address] Transcribed By: YANIRA 04/10/25 1354 Dictated By: Isai Geller II, MD 04/10/25 1351 Signed By: 04/10/25 1354 [facility] Work Phone: 1(283) 151-497906-11-2025 Telephone encounter Note* Telephone Encounter - Penelope Moreno RN - 02/18/2025 11:[address] Lee's office calls to ask if pt has had a recent colonoscopy or if she is due for one. Pt's record shows that she had a screening colonoscopy done on 08/04/24 w/ recommendations to repeat in 3 years due to her personal h/o colon cancer. Antonia @ Dr Lee's office notified of the above. Copy of the pt's colonoscopy report faxed to [phone] for their records. No further questions noted. Penelope Moreno RN [facility] Work Phone: 1(810) 380-408606-11-2025 Miscellaneous Notes* Telephone Encounter - Penelope Moreno RN - 02/18/2025 11:[address] Lee's office calls to ask if pt has had a recent colonoscopy or if she is due for one. Pt's record shows that she had a screening colonoscopy done on 08/04/24 w/ recommendations to repeat in 3 years due to her personal h/o colon cancer. Antonia @ Dr Lee's office notified of the above. Copy of the pt's colonoscopy report faxed to [phone] for their records. No further questions noted. Penelope Moreno RN documented [facility] NoteHNO ID: [id number] Author: JAUN COFFEY PA-C Service: ? Author Type: Physician Professor Of English Type: Progress Notes Filed: 02/18/2025 10:59 Note Text: NAME: Nancy Sue CLINIC NO.: [id number] DATE OF SERVICE: February 18, 2025 (Goldy) Some elements in this clinic note that are critical to medical decision making have been carefully reviewed and included from a prior clinic note dated: November 03, 2024 (Dianne) Referring Provider: Kaley Francois Additional Clinicians involved in Nancy Sue's care: Dr. Justin Buckner, Dr. 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 She had rectal bleeding that started in February 2023. Surprisingly not iron deficient. PET showed mesenteric and retroperitoneal LN's. Most consistent with stage IV disease. 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 Final path at resection was Stage I - no treatment response noted on pathology evaluation. Started FOLFOX on 08/29/2023. Cancer Staging Cancer of sigmoid (HCC) Staging form: Colon and Rectum, AJCC 8th Edition - Clinical stage from 06/29/2023: Stage IVB (cTX, cNX, cM1b) - Signed by Jose Wing MD on 07/20/2023 - Pathologic stage from 01/03/2024: Stage I (ypT2, pN0, cM0) - Signed by Jose Wing MD on 01/13/2024 LN's identified are borderline - may be Overstaged. Pulmonary GPS Biopsy of Right lung lesion - Carcinoid. SUMMARIZED PLAN OF CARE: Discussed results of recent CT scan as stable and no evidence of disease. Plan is to follow up in 6 months with repeat imaging and labs Next colonoscopy is due in June 2027 Port flush every 3 months HPI: CASE HISTORY: Reverse Chronological Order 02/09/2025 - CT CAP w/ con: Chest: 1. No interval change since 10/27/24. 2. Several subcentimeter nodular opacities measuring up to 7 mm, stable since 06/22/23. 3. Findings compatible with previous granulomatous disease. A/P: 1. No interval change since 10/27/24. 2. Mild splenomegaly and mild to moderate abdominal lymphadenopathy, stable. 3. Cholelithiasis. 4. Nonobstructing left renal stones. 10/27/2024 - CT CAP: Chest: Stable CT of the chest. Stable appearance of bilateral nodular opacities. No new nodules are identified. No evidence of bulky intrathoracic lymphadenopathy. A/P: Postsurgical changes, without evidence of new abdominal or pelvic metastatic disease. Intra-abdominal lymphadenopathy which is either stable or slightly decreased in size when compared to prior exam. New fluid collection within a surgical scar, likely representing a seroma or hematoma. 10/27/2024 - CEA: 0.8 02/22/2024-02/24/2024 - Admitted for ileostomy closure 01/17/2024-01/19/2024 - Admitted at [facility] for skin irritation at stoma site 01/11/2024 - CEA: 0.7 12/28/2023 - Laparoscopic converted to open low anterior resection, Splenic flexure mobilization, Diverting loop ileostomy, Flexible Sigmoidoscopy: Dr. Francois A. Hepatic artery lymph node, excision: - One lymph node, negative for malignancy (0/1). B. Sigmoid colon and proximal rectum, resection: - Residual invasive adenocarcinoma (see synoptic report). - One additional tubular adenoma. - Diverticular disease with associated focal active inflammation. - Sixteen lymph nodes, negative for malignancy (0/16). C. Distal donut, excision: - Segment of rectum with no diagnostic abnormality. 11/07/2023 - CT CAP: Chest: Streaky scarring/discoid atelectasis in the left upper lobe, increased since 08/13/23. Several subcentimeter nodular opacities measuring up to 8 mm, stable since 06/22/23. Findings compatible with previous granulomatous disease. A/P: Mild splenomegaly, increased in size since 06/22/23. Wrrv-ix-kwdnncdb abdominal lymphadenopathy, stable. Increased streaky reticulation of the pelvic fat may represent post therapy changes or edema. Previously noted thickening of the rectosigmoid colon wall is less conspicuous. Sigmoid colon diverticulosis without evidence of diverticulitis. Nonobstructing left renal stones. 11/07/2023 - CEA: 1.2 08/29/2023-11/21/2023 - 5 cycles FOLFOX 08/29/2023 - CEA: 2.5 08/22/2023 - TB-FNA Right lower Lobe: - Neoplastic cells present derived from low-grade neuroendocrine tumor 07/13/2023 - CT PET: Intense uptake along more than 7 cm of the sigmoid colon consistent with known primary, associated with mildly prominent with tjpe-lr-ojxhysim FDG uptake in upper mesenteric and retroperitoneal lymphadenopathy. 0.7 cm right lower lobe lung nodule, below PET resolution. 07/06/2023 - CT Pelvis: Irregular circumferential distal sigmoid colonic wall thickening, extending over a length of 8 cm, compatible with known sigmoid colonic neoplasm. (more content not included)...[facility]06-11-2025 History of Present illness Narrative* Jaun Coffey PA-C - 02/18/2025 8:17 AM EDT Images from the original note were not included. NAME: Nancy Sue CLINIC NO.: [id number] DATE OF SERVICE: February 18, 2025 (Goldy) Some elements in this clinic note that are critical to medical decision making have been carefully reviewed and included from a prior clinic note dated: November 03, 2024 (Dianne) Referring Provider: Kaley Francois Additional Clinicians involved in Nancy Sue's care: Dr. Justin Buckner, Dr. 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 She had rectal bleeding that started in February 2023. Surprisingly not iron deficient. PET showed mesenteric and retroperitoneal LN's. Most consistent with stage IV disease. 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 Final path at resection was Stage I - no treatment response noted on pathology evaluation. Started FOLFOX on 08/29/2023. Cancer Staging Cancer of sigmoid (HCC) Staging form: Colon and Rectum, AJCC 8th Edition - Clinical stage from 06/29/2023: Stage IVB (cTX, cNX, cM1b) - Signed by Jose Wing MD on 07/20/2023 - Pathologic stage from 01/03/2024: Stage I (ypT2, pN0, cM0) - Signed by Jose Wing MD on 01/13/2024 LN's identified are borderline - may be Overstaged. Pulmonary GPS Biopsy of Right lung lesion - Carcinoid. SUMMARIZED PLAN OF CARE: Discussed results of recent CT scan as stable and no evidence of disease. Plan is to follow up in 6 months with repeat imaging and labs Next colonoscopy is due in June 2027 Port flush every 3 months HPI: CASE HISTORY: Reverse Chronological Order 02/09/2025 - CT CAP w/ con: Chest: 1. No interval change since 10/27/24. 2. Several subcentimeter nodular opacities measuring up to 7 mm, stable since 06/22/23. 3. Findings compatible with previous granulomatous disease. A/P: 1. No interval change since 10/27/24. 2. Mild splenomegaly and mild to moderate abdominal lymphadenopathy, stable. 3. Cholelithiasis. 4. Nonobstructing left renal stones. 10/27/2024 - CT CAP: Chest: Stable CT of the chest. Stable appearance of bilateral nodular opacities. No new nodules areidentified. No evidence of bulky intrathoracic lymphadenopathy. A/P: Postsurgical changes, without evidence of new abdominal or pelvic metastatic disease. Intra-abdominal lymphadenopathy which is either stable or slightly decreased in size when compared to prior exam. New fluid collection within a surgical scar, likely representing a seroma or hematoma. 10/27/2024 - CEA: 0.8 02/22/2024-02/24/2024 - Admitted for ileostomy closure 01/17/2024-01/19/2024 - Admitted at [facility] for skin irritation at stoma site 01/11/2024 - CEA: 0.7 12/28/2023 - Laparoscopic converted to open low anterior resection, Splenic flexure mobilization, Diverting loop ileostomy, Flexible Sigmoidoscopy: Dr. Francois A. Hepatic artery lymph node, excision: - One lymph node, negative for malignancy (0/1). B. Sigmoid colon and proximal rectum, resection: - Residual invasive adenocarcinoma (see synoptic report). - One additional tubular adenoma. - Diverticular disease with associated focal active inflammation. - Sixteen lymph nodes, negative for malignancy (0/16). C. Distal donut, excision: - Segment of rectum with no diagnostic abnormality. 11/07/2023 - CT CAP: Chest: Streaky scarring/discoid atelectasis in the left upper lobe, increased since 08/13/23. Several subcentimeter nodular opacities measuring up to 8 mm, stable since 06/22/23. Findings compatible with previous granulomatous disease. A/P: Mild splenomegaly, increased in size since 06/22/23. Zxfb-xc-fiypzlso abdominal lymphadenopathy, stable. Increased streaky reticulation of the pelvic fat may represent post therapy changes or edema. Previously noted thickening of the rectosigmoid colon wall is less conspicuous. Sigmoid colon diverticulosis without evidence of diverticulitis. Nonobstructing left renal stones. 11/07/2023 - CEA: 1.2 08/29/2023-11/21/2023 - 5 cycles FOLFOX 08/29/2023 - CEA: 2.5 08/22/2023 - TB-FNA Right lower Lobe: - Neoplastic cells present derived from low-grade neuroendocrine tumor 07/13/2023 - CT PET: Intense uptake along more than 7 cm of the sigmoid colon consistent with known primary, associated with mildly prominent with jiju-ja-fypxnpqu FDG uptake in upper mesenteric and retroperitoneal lymphadenopathy. 0.7 cm right lower lobe lung nodule, below PET resolution. 07/06/2023 - CT Pelvis: Irregular circumferential distal sigmoid colonic wall thickening, extending over a length of 8 cm, compatible with known sigmoid colonic neoplasm. No metastatic disease within the pelvis. 06/22/2023 - CT CAP: Right lower lobe subcentimeter pulmonary nodules, larger [...] measures 1.5 x 1.0 cm, image 36, series6 Additional subcentimeter retroperitoneal and gastrohepatic ligament lymph nodes are identified. 06/08/2023 - Flex Sig: Dr. Francois - Malignant tumor in the distal sigmoid colon 06/05/2023 - CEA: 1.4 05/30/2023 - Colonoscopy Dr. Lee 3 polyps and recto-sigmoid mass - Invasive mod. Diff adenoca. 02/2023 - Bowel pressure and rectal bleeding Updated Visit, February 18, 2025: Nancy returns for follow up. Overall doing well. No new medical changes. She is taking probiotics now, but not routinely as she forgets. Denies any pain, cough, shortness of breath, or worsening bowel complaints. Her labs remain stable. She does still have her port. Updated Visit, November 03, 2024: Nancy returns for a follow up, Leoncio is in the lobby. Recent CT CAP shows stable bilateral lung opacities and stable intra-abdominal lymphadenopathy, some intra-abdominal lymphadenopathy has decreased in size. There is a new fluid collection in her surgical scar that likely represents a seroma or hematoma. Platelets remain decreased, hemoglobin has improved and is within normal range. Planning a vacation to [facility]. Updated Visit, July 14, 2024: Nancy returns today for a follow up. She is doing well overall. She has a colonoscopy scheduled forthe end of the month. Platelets remain low per her normal, she is not anemic. Iron studies are pending. Updated Visit, January 11, 2024: Nancy returns today with Leoncio. Lymph node pathology was negative. She will have an ostomy bag for 2 months. We discussed the lack of change to her tumor after chemotherapy - continued chemotherapy is unlikely to help in the future. She is not anemic and platelets are normal. Updated Visit, November 21, 2023: Nancy returns [...] break from therapy and a trip to [place]. She was thrombocytopenic and mildlyneutropenic at last visit causing a delay. Reviewed [...] is looking forward to a trip to [place] 10/01 - 10/06. Updated Visit, September 12, [...] signs/symptoms of infection. No bleeding or abnormal bruising.Overall, she is doing well and wishes to proceed with treatment as planned. Updated Visit, September 07, 2023: Nancy Sue returns for scheduled follow-up. She received cycle 1 FOLFOX on 08/29/2023. Right after treatment the same day she had developed cold sensitivity. Overall, she tolerated treatment well. She denies any mouth sores. No significant diarrhea. She has not had any further blood in her stoolssince Maple. She remains on 1 oral iron pills [...] treatment. Updated Visit, July 27, 2023: Virtual Visit Discussed with nancy and Leoncio plan from tumor board review. Discussed lung lesion and need for biopsy. As well as potentially overstated and subsequent overstaging LN of retroperitoneum and upper mesenteric LN stations. Patient and agree with the plan. Updated Visit, July 20, 2023: Nancy returns today with Leoncio and daughter Jennifer for follow up. I reviewed her recent PET CTwith them, we should likely plan on chemotherapy as next steps as her disease can be classified as Stage 4. I will bring her case to the tumor board in order to get a broader range of recommendations, in the meantime I will start preparing to start her on chemotherapy. She reports still having somebloody stools, which she feels may have been a little worse lately than in the past. She would liketo have a second opinion in addition to the tumor board recommendations. Her daughter Jennifer works in cardiology. This was a very lengthy and emotional discussion as it was unexpected by us all. Initial Visit, June 29, 2023: Nancy Sue presents today Hematology and Oncology evaluation. She is a 63 year old female who hadchanges in bowel habits and presumed hemorrhoidal bleeding for 3 months. She underwent colonoscopy and was found to have a recto-sigmoid mass that was not obstructing by Dr Lee. Path consistent withmalignancy. Staging studies incomplete but she does have selwyn-hepatis nodes that are concerning for metastatic disease. Additionally, lung nodules also concerning for metastasis. Continues to have bowel pressure. Rectal bleeding. Here with Leoncio who is a pollution control chemist and getting ready to retire. 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 REVIEW OF SYSTEMS Per HPI and otherwise negative by full review of organ systems. ECOG PERFORMANCE STATUS: 0 PHYSICAL EXAMINATION: Vitals: BP 138/79 Pulse 80 Temp (Src) 97.4 (Temporal) Resp 16 Ht 5' 4.016 (1.63m) Wt 215lb 2.7 oz (97.6kg) SpO2 98% BMI 36.92 kg/(m^2). Body surface area is 2.1 meters squared. General: Alert and oriented, no distress, pleasant and cooperative. Heart: Regular, normal S1 and S2, no murmurs, rubs, or gallops Lungs: Clear to auscultation bilaterally Abdomen: Benign Extremities: Feet/ankles without edema ALLERGIES: ALLERGIES Allergen Reactions Zbbztbf-Ldc-Gre Red* Other: See Comments, Unknown, Myalgia myalgias MEDICATIONS: iv contrast (will be provided with radiology test) CT Chest ABD/PEL-Inject, intravenously, once for1 dose.No IV access, insert saline lock prior [...] both Oral and Rectal, Enteric Tube, Stoma orIndwelling Catheter, Enteric Contrast as designated per enteric contrast guidelines ibuprofen (MOTRIN) 200 mg tablet Take 2 tablets by mouth every 6 hours. iron glycinate,polysacch cmplx (IRON BIS GLYCIN-FE P-SAC CMPLX ORAL) Take 20 mg by mouth once daily. collagen, hydrolysate, bovine, (COLLAGEN, HYDR, BOVINE,, BULK,) 100 % powd Take 1 Dose by mouth once daily. prochlorperazine (COMPAZINE) 10 mg tablet Take 1 tablet by mouth every 6 hours as needed. levothyroxine (SYNTHROID) 50 mcg tablet Take 50 mcg by mouth once daily. Pramoxine-Hydrocortisone (ANALPRAM-HC) 1-1 % rectal cream 1 g by RECTAL route two times a day as needed (rectal discomfort). omega 1-jxj-cuw-fish oil 120-180-500 mg cap Take 500 mg by mouth once daily. LABORATORY VALUES: WBC (k/uL) Date Value 02/09/2025 4.25 RBC (m/uL) Date Value 02/09/2025 4.23 Hemoglobin (g/dL) Date Value 02/09/2025 12.5 Hematocrit (%) Date Value 02/09/2025 37.3 MCV (fL) Date Value 02/09/2025 88.2 MCH (pg) Date Value 02/09/2025 29.6 MCHC (g/dL) Date Value 02/09/2025 33.5 RDW-CV (%) Date Value 02/09/2025 13.6 Platelet Count (k/uL) Date Value 02/09/2025 121 (L) MPV (fL) Date Value 02/09/2025 11.5 Glucose (mg/dL) Date Value 02/09/2025 121 (H) BUN (mg/dL) Date Value 02/09/2025 14 Creatinine (mg/dL) Date Value 02/09/2025 0.95 Sodium (mmol/L) Date Value 02/09/2025 139 Potassium (mmol/L) Date Value 02/09/2025 3.9 Chloride (mmol/L) Date Value 02/09/2025 106 CO2 (mmol/L) Date Value 02/09/2025 25 Protein, Total (g/dL) Date Value 02/09/2025 6.3 Albumin (g/dL) Date Value 02/09/2025 4.1 Calcium, Total (mg/dL) Date Value 02/09/2025 9.5 Alkaline Phosphatase (U/L) Date Value 02/09/2025 72 Bilirubin, Total (mg/dL) Date Value 02/09/2025 0.3 AST (U/L) Date Value 02/09/2025 18 ALT (U/L) Date Value 02/09/2025 15 CEA (ng/mL) Date Value 02/09/2025 0.7 10/27/2024 0.8 01/11/2024 0.7 11/07/2023 1.2 09/26/2023 1.4 DIAGNOSIS: (C20) Malignant neoplasm of rectum (HCC) (primary encounter diagnosis) Plan: CT ABD/PEL W IVCON, CT CHEST W IVCON, COMPREHENSIVE METABOLIC PANEL, COMPLETE BLOOD COUNT AND DIFFERENTIAL, CARCINOEMBRYONIC ANTIGEN PAST MEDICAL HISTORY Diagnosis Date Anemia High cholesterol HTN (hypertension) Hypothyroidism PAST SURGICAL HISTORY Procedure Laterality Date ;TOTAL HYSTERECTMY TUBE(S) &/OR OVARY BRONCHOSCOPY W/PLACEMENT TRACHEAL STENT COLECTOMY PARTIAL W/ANASTOMOSIS 12/28/2023 laparoscopic converted to open COLONOSCOPY SCREENING LIPOMA (MEDIUM) Social History Tobacco Use Smoking status: Never Smokeless tobacco: Never Vaping Use Vaping status: Never Used Substance Use Topics Alcohol use: Yes Comment: 2 drinks a couple times a month Drug use: Never FAMILY HISTORY Problem Relation Age of Onset Stroke Mother COPD Father Heart Father Colon Cancer Brother I spent a total of 20 minutes on the date of service which included preparing to see the patient, iwil-pu-wonm patient care, completing clinical documentation, performing a medically appropriate examination, counseling and educating the patient/family/caregiver, ordering medications, tests, or procedures, independently interpreting results (not separately reported), communicating results to the patient/family/caregiver, and care coordination (not separately reported). Jaun Coffey PA-C Hematology and Oncology Services Provided at: [place], [place] CC: Dr. Justin Francois documented in this encounter[facility] Telephone encounter Note * Telephone Encounter - Penelope Moreno RN - 02/10/2025 3:11 PM EDT Pt notified of results and verbalizes understanding. Penelope Moreno RN [facility] Work Phone: [phone] Miscellaneous Notes* Telephone Encounter - Penelope Moreno RN - 02/10/2025 3:11 PM EDT Pt notified of results and verbalizes understanding. Penelope Moreno RN * Telephone Encounter - Penelope Moreno RN - 02/10/2025 2:14 PM EDT Call placed to pt. No answer. Message left requesting call back. Penelope Moreno RN documented in this encounterSelect [facility] Telephone encounter Note * Telephone Encounter - Penelope Moreno RN - 02/10/2025 2:14 PM EDT Call placed to pt. No answer. Message left requesting call back. Penelope Moreno RN [facility]06-[facility] History of Present illness Narrative* Gabby Dempsey RN - 02/09/2025 10:15 AM EDT Radiology Service Progress Note DATE OF SERVICE: February 09, 2025 TIME: 11:06 AM PATIENT WEIGHT: 214LBS PATIENT IDENTITY VERIFICATION COMPLETED USING TWO (2) STANDARD IDENTIFIERS: Name and Date of confirmed by patient verbally. FALL SCREENING: Has the patient had 2 falls in the last year or 1 fall with injury or currently using an Ambulatory Assistive Device (Walker, Cane, Wheelchair, Crutches, etc.)? No PATIENT GENDER DATA: Assigned female at . status: : No status:NO. ALLERGIES: Reviewed and unchanged CONTRAST ALLERGY: No EXAM: CT -CONTRAST INDUCED NEPHROPATHY RISK FACTORS: Patient age > 60 years CREATININE: Creatinine Date Value Ref Range Status 02/09/2025 0.95 0.58 - 0.96 mg/dL Final 10/27/2024 0.99 (H) 0.58 - 0.96 mg/dL Final 07/14/2024 1.00 (H) 0.58 - 0.96 mg/dL Final Estimated Glomerular Filtration Rate Date Value Ref Range Status 02/09/2025 66 >=60 mL/min/1.73m Final Comment: Estimated Glomerular Filtration Rate (eGFR) is calculated using the 2020 CKD-EPI creatinine equation. This equation utilizes serum creatinine, sex, and age as parameters. The creatinine assay has traceable calibration to isotope dilution- mass spectrometry. Refer to KDIGO guidelines for clinical interpretation. In patients with unstable renal function, e.g. those with acute kidney injury, the eGFRmay not accurately reflect actual GFR. P.O.C.T. RESULTS: POC done: Yes, See Lab Tab February 09, 2025 TREATMENT: No Hydration needed. IV SITE: Ambulatory: A power injectable Mediport was accessed in the Right chest with a 0.75 inch 20 gauge needle. Blood Return, Flushed easily with normal saline, Good Blood Return Post Injection, No Complications, and port accessed via sterile technique port flushed with 20 ml NS post scan with good blood return noted port deaccessed IV SITE APPEARANCE: Clean,Dry and Intact SIGNATURE: Gabby Dempsey RN PATIENT NAME: Nancy Sue DATE: February 09, 2025 TIME: 11:06 AM * Penelope Ramos RT(R) - 02/09/2025 10:15 AM EDT Radiology Service Progress Note PATIENT NAME: Nancy Sue DATE OF SERVICE: February 09, 2025 TIME: 12:04 PM PATIENT IDENTITY VERIFICATION COMPLETED USING TWO (2) IDENTIFIERS: Name and Date of confirmedby patient verbally. FALL SCREENING: Has the patient had 2 falls in the last year or 1 fall with injury or currently using an Ambulatory Assistive Device (Walker, Cane, Wheelchair, Crutches, etc.)? No PATIENT GENDER DATA: Assigned female at . status: : No status:NO. PATIENT RELEVANT IMPLANT DATA REVIEWED: Not Applicable PATIENT PRESENTS WITH AN IMPLANTABLE OR ATTACHED HEEL SCOURER: No RADIOLOGY DEPARTMENT: CT; Exam(s) Completed: Chest Abdomen Pelvis PERIPHERAL IV DATA: Not applicable SIGNED BY: RT mIani(R) February 09, 2025 12:04 PM POWER port scanned 08/15/2023 documented in this encounterSelect [facility]06-02-2025 NoteHNO ID: [id number] Author: GABBY DEMPSEY RN Service: ? Author Type: Registered Nurse Type: Progress Notes Filed: 02/09/2025 11:07 Note Text: Radiology Service Progress Note DATE OF SERVICE: February 09, 2025 TIME: 11:06 AM PATIENT WEIGHT: 214LBS PATIENT IDENTITY VERIFICATION COMPLETED USING TWO (2) STANDARD IDENTIFIERS: Name and Date of confirmed by patient verbally. FALL SCREENING: Has the patient had 2 falls in the last year or 1 fall with injury or currently using an Ambulatory Assistive Device (Walker, Cane, Wheelchair, Crutches, etc.)? No PATIENT GENDER DATA: Assigned female at . status: : No status: NO. ALLERGIES: Reviewed and unchanged CONTRAST ALLERGY: No EXAM: CT -CONTRAST INDUCED NEPHROPATHY RISK FACTORS: Patient age > 60 years CREATININE: Creatinine Date Value Ref Range Status 02/09/2025 0.95 0.58 - 0.96 mg/dL Final 10/27/2024 0.99 (H) 0.58 - 0.96 mg/dL Final 07/14/2024 1.00 (H) 0.58 - 0.96 mg/dL Final Estimated Glomerular Filtration Rate Date Value Ref Range Status 02/09/2025 66 >=60 mL/min/1.73m? Final Comment: Estimated Glomerular Filtration Rate (eGFR) is calculated using the 2020 CKD-EPI creatinine equation. This equation utilizes serum creatinine, sex, and age as parameters. The creatinine assay has traceable calibration to isotope dilution-mass spectrometry. Refer to KDIGO guidelines for clinical interpretation. In patients with unstable renal function, e.g. those with acute kidney injury, the eGFR may not accurately reflect actual GFR. P.O.C.T. RESULTS: POC done: Yes, See Lab Tab February 09, 2025 TREATMENT: No Hydration needed. IV SITE: Ambulatory: A power injectable Mediport was accessed in the Right chest with a 0.75 inch 20 gauge needle. Blood Return, Flushed easily with normal saline, Good Blood Return Post Injection, No Complications, and port accessed via sterile technique port flushed with 20 ml NS post scan with good blood return noted port deaccessed IV SITE APPEARANCE: Clean,Dry and Intact SIGNATURE: Gabby Dempsey RN PATIENT NAME: Nancy Sue DATE: February 09, 2025 TIME: 11:06 [facility]06-02-2025 NoteHNO ID: [id number] Author: PENELOPE RAMOS RT(R) Service: ? Author Type: Technologist Type: Progress Notes Filed: 02/09/2025 12:04 Note Text: Radiology Service Progress Note PATIENT NAME: Nancy Sue DATE OF SERVICE: February 09, 2025 TIME: 12:04 PM PATIENT IDENTITY VERIFICATION COMPLETED USING TWO (2) IDENTIFIERS: Name and Date of confirmed by patient verbally. FALL SCREENING: Has the patient had 2 falls in the last year or 1 fall with injury or currently using an Ambulatory Assistive Device (Walker, Cane, Wheelchair, Crutches, etc.)? No PATIENT GENDER DATA: Assigned female at . status: : No status: NO. PATIENT RELEVANT IMPLANT DATA REVIEWED: Not Applicable PATIENT PRESENTS WITH AN IMPLANTABLE OR ATTACHED HEEL SCOURER: No RADIOLOGY DEPARTMENT: CT; Exam(s) Completed: Chest Abdomen Pelvis PERIPHERAL IV DATA: Not applicable SIGNED BY: Penelope Ramos RT(R) February 09, 2025 12:04 PM POWER port scanned [facility]23[facility]02-24[facility] Instructions* Patient Instructions* Kimi Garvey - 11/03/2024 9:[address] CAP with labs (with port) in 3 months RTC in 1 week after to review documented in this encounterSelect [facility]02-24-2025 History of Present illness Narrative* Jose Wing MD - 11/03/2024 9:20 AM EST Images from the original note were not included. NAME: Nancy Sue CLINIC NO.: [id number] DATE OF SERVICE: November 03, 2024 (Dianne) Some elements in this clinic note that are critical to medical decision making have been carefully reviewed and included from a prior clinic note dated: July 14, 2024 (Dianne) Referring Provider: Kaley Francois Additional Clinicians involved in Nancy Sue's care: Dr. Justin Buckner, Dr. 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 systemic therapy. She was diagnosed 05/30/2023 on colonoscopydone for rectal bleeding that started in February 2023. Surprisingly not iron deficient. PET shows mesenteric and retroperitoneal LN's. Most consistent with stage IV disease. 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 Final path at resection was Stage I - no treatment response noted on pathology evaluation. Started FOLFOX on 08/29/2023. Cancer Staging Cancer of sigmoid (HCC) Staging form: Colon and Rectum, AJCC 8th Edition - Clinical stage from 06/29/2023: Stage IVB (cTX, cNX, cM1b) - Signed by Jose Wing MD on 07/20/2023 - Pathologic stage from 01/03/2024: Stage I (ypT2, pN0, cM0) - Signed by Jose Wing MD on 01/13/2024 LN's identified are borderline - may be Overstaged. Pulmonary GPS Biopsy of Right lung lesion - Carcinoid. PLAN: CT CAP with labs (with port) in 3 months RTC in 1 week after to review HPI: CASE HISTORY: Reverse Chronological Order 10/27/2024 - CT CAP: Chest: Stable CT of the chest. Stable appearance of bilateral nodular opacities. No new nodules areidentified. No evidence of bulky intrathoracic lymphadenopathy. A/P: Postsurgical changes, without evidence of new abdominal or pelvic metastatic disease. Intra-abdominal lymphadenopathy which is either stable or slightly decreased in size when compared to prior exam. New fluid collection within a surgical scar, likely representing a seroma or hematoma. 10/27/2024 - CEA: 0.8 02/22/2024-02/24/2024 - Admitted for ileostomy closure 01/17/2024-01/19/2024 - Admitted at [facility] for skin irritation at stoma site 01/11/2024 - CEA: 0.7 12/28/2023 - Laparoscopic converted to open low anterior resection, Splenic flexure mobilization, Diverting loop ileostomy, Flexible Sigmoidoscopy: Dr. Alessandro Yanes Hepatic artery lymph node, excision: - One lymph node, negative for malignancy (0/1). B. Sigmoid colon and proximal rectum, resection: - Residual invasive adenocarcinoma (see synoptic report). - One additional tubular adenoma. - Diverticular disease with associated focal active inflammation. - Sixteen lymph nodes, negative for malignancy (0/16). C. Distal donut, excision: - Segment of rectum with no diagnostic abnormality. 11/07/2023 - CT CAP: Chest: Streaky scarring/discoid atelectasis in the left upper lobe, increased since 08/13/23. Several subcentimeter nodular opacities measuring up to 8 mm, stable since 06/22/23. Findings compatible with previous granulomatous disease. A/P: Mild splenomegaly, increased in size since 06/22/23. Kpfz-dl-spixfazb abdominal lymphadenopathy, stable. Increased streaky reticulation of the pelvic fat may represent post therapy changes or edema. Previously noted thickening of the rectosigmoid colon wall is less conspicuous. Sigmoid colon diverticulosis without evidence of diverticulitis. Nonobstructing left renal stones. 11/07/2023 - CEA: 1.2 08/29/2023-11/21/2023 - 5 cycles FOLFOX 08/29/2023 - CEA: 2.5 08/22/2023 - TB-FNA Right lower Lobe: - Neoplastic cells present derived from low-grade neuroendocrine tumor 07/13/2023 - CT PET: Intense uptake along more than 7 cm of the sigmoid colon consistent with known primary, associated with mildly prominent with yvor-du-fubajagl FDG uptake in upper mesenteric and retroperitoneal lymphadenopathy. 0.7 cm right lower lobe lung nodule, below PET resolution. 07/06/2023 - CT Pelvis: Irregular circumferential distal sigmoid colonic wall thickening, extending over a length of 8 cm, compatible with known sigmoid colonic neoplasm. No metastatic disease within the pelvis. 06/22/2023 - CT CAP: Right lower lobe subcentimeter pulmonary nodules, larger [...] measures 1.5 x 1.0 cm, image 36, series6 Additional subcentimeter retroperitoneal and gastrohepatic ligament lymph nodes are identified. 06/08/2023 - Flex Sig: Dr. Francois - Malignant tumor in the distal sigmoid colon 06/05/2023 - CEA: 1.4 05/30/2023 - Colonoscopy Dr. Lee 3 polyps and recto-sigmoid mass - Invasive mod. Diff adenoca. 02/2023 - Bowel pressure and rectal bleeding Updated Visit, November 03, 2024: Nancy returns for a follow up, Leoncio is in the lobby. Recent CT CAP shows stable bilateral lung opacities and stable intra-abdominal lymphadenopathy, some intra-abdominal lymphadenopathy has decreased in size. There is a new fluid collection in her surgical scar that likely represents a seroma or hematoma. Platelets remain decreased, hemoglobin has improved and is within normal range. Planning a vacation to [facility]. Updated Visit, July 14, 2024: Nancy returns today for a follow up. She is doing well overall. She has a colonoscopy scheduled forthe end of the month. Platelets remain low per her normal, she is not anemic. Iron studies are pending. Updated Visit, January 11, 2024: Nancy returns today with Leoncio. Lymph node pathology was negative. She will have an ostomy bag for 2 months. We discussed the lack of change to her tumor after chemotherapy - continued chemotherapy is unlikely to help in the future. She is not anemic and platelets are normal. Updated Visit, November 21, 2023: Nancy returns [...] break from therapy and a trip to [place]. She was thrombocytopenic and mildlyneutropenic at last visit causing a delay. Reviewed [...] is looking forward to a trip to [place] 10/01 - 10/06. Updated Visit, September 12, [...] signs/symptoms of infection. No bleeding or abnormal bruising.Overall, she is doing well and wishes to proceed with treatment as planned. Updated Visit, September 07, 2023: Nancy Sue returns for scheduled follow-up. She received cycle 1 FOLFOX on 08/29/2023. Right after treatment the same day she had developed cold sensitivity. Overall, she tolerated treatment well. She denies any mouth sores. No significant diarrhea. She has not had any further blood in her stoolssince Alexandrea. She remains on 1 oral iron pills [...] treatment. Updated Visit, July 27, 2023: Virtual Visit Discussed with nancy and Leoncio plan from tumor board review. Discussed lung lesion and need for biopsy. As well as potentially overstated and subsequent overstaging LN of retroperitoneum and upper mesenteric LN stations. Patient and agree with the plan. Updated Visit, July 20, 2023: Nancy returns today with Leoncio and daughter Jennifer for follow up. I reviewed her recent PET CTwith them, we should likely plan on chemotherapy as next steps as her disease can be classified as Stage 4. I will bring her case to the tumor board in order to get a broader range of recommendations, in the meantime I will start preparing to start her on chemotherapy. She reports still having somebloody stools, which she feels may have been a little worse lately than in the past. She would liketo have a second opinion in addition to the tumor board recommendations. Her daughter Jennifer works in cardiology. This was a very lengthy and emotional discussion as it was unexpected by us all. Initial Visit, June 29, 2023: Nancy Sue presents today Hematology and Oncology evaluation. She is a 63 year old female who hadchanges in bowel habits and presumed hemorrhoidal bleeding for 3 months. She underwent colonoscopy and was found to have a recto-sigmoid mass that was not obstructing by Dr Lee. Path consistent withmalignancy. Staging studies incomplete but she does have selwyn-hepatis nodes that are concerning for metastatic disease. Additionally, lung nodules also concerning for metastasis. Continues to have bowel pressure. Rectal bleeding. Here with Leoncio who is a pollution control chemist and getting ready to retire. 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 REVIEW OF SYSTEMS Per HPI and otherwise negative by full review of organ systems. ECOG PERFORMANCE STATUS: 0 PHYSICAL EXAMINATION: Vitals: BP 163/83 Pulse 78 Temp (Src) 96.9 (Temporal) Resp 16 Ht 5' 4.016 (1.63m) Wt 225lb 5 oz (102.2kg) SpO2 97% BMI 38.66 kg/(m^2). Body surface area is 2.15 meters [...] wounds or petechiae. ALLERGIES: ALLERGIES Allergen Reactions Kbfqzmh-Oer-Bey Red* Other: See Comments, Unknown, Myalgia myalgias MEDICATIONS: ibuprofen (MOTRIN) 200 mg tablet Take 2 tablets by mouth every 6 hours. iron glycinate,polysacch cmplx (IRON BIS GLYCIN-FE P-SAC CMPLX ORAL) Take 20 mg by mouth once daily. collagen, hydrolysate, bovine, (COLLAGEN, HYDR, BOVINE,, BULK,) 100 % powd Take 1 Dose by mouth once daily. prochlorperazine (COMPAZINE) 10 mg tablet Take 1 tablet by mouth every 6 hours as needed. levothyroxine (SYNTHROID) 50 mcg tablet Take 50 mcg by mouth once daily. Pramoxine-Hydrocortisone (ANALPRAM-HC) 1-1 % rectal cream 1 g by RECTAL route two times a day as needed (rectal discomfort). omega 8-mrs-ool-fish oil 120-180-500 mg cap Take 500 mg by mouth once daily. iv contrast (will be provided with radiology test) CT Chest ABD/PEL-Inject, intravenously, once for1 dose.No IV access, insert saline lock prior [...] both Oral and Rectal, Enteric Tube, Stoma orIndwelling Catheter, Enteric Contrast as designated per enteric contrast guidelines LABORATORY VALUES: WBC (k/uL) Date Value 10/27/2024 4.47 RBC (m/uL) Date Value 10/27/2024 4.22 Hemoglobin (g/dL) Date Value 10/27/2024 12.4 Hematocrit (%) Date Value 10/27/2024 37.0 MCV (fL) Date Value 10/27/2024 87.7 MCH (pg) Date Value 10/27/2024 29.4 MCHC (g/dL) Date Value 10/27/2024 33.5 RDW-CV (%) Date Value 10/27/2024 13.6 Platelet Count (k/uL) Date Value 10/27/2024 117 (L) MPV (fL) Date Value 10/27/2024 10.6 Glucose (mg/dL) Date Value 10/27/2024 99 BUN (mg/dL) Date Value 10/27/2024 15 Creatinine (mg/dL) Date Value 10/27/2024 0.99 (H) Sodium (mmol/L) Date Value 10/27/2024 139 Potassium (mmol/L) Date Value 10/27/2024 3.8 Chloride (mmol/L) Date Value 10/27/2024 103 CO2 (mmol/L) Date Value 10/27/2024 27 Protein, Total (g/dL) Date Value 10/27/2024 6.6 Albumin (g/dL) Date Value 10/27/2024 4.4 Calcium, Total (mg/dL) Date Value 10/27/2024 9.4 Alkaline Phosphatase (U/L) Date Value 10/27/2024 66 Bilirubin, Total (mg/dL) Date Value 10/27/2024 0.4 AST (U/L) Date Value 10/27/2024 18 ALT (U/L) Date Value 10/27/2024 17 CEA (ng/mL) Date Value 10/27/2024 0.8 01/11/2024 0.7 11/07/2023 1.2 09/26/2023 1.4 08/29/2023 2.5 DIAGNOSIS: (C18.7) Malignant neoplasm of sigmoid colon (HCC) (primary encounter diagnosis) Plan: CT ABD/PEL W IVCON, CT CHEST W IVCON, iv contrast (will be provided with radiology test), enteric contrast (will be provided with radiology test), CARCINOEMBRYONIC ANTIGEN, COMPLETE BLOOD COUNT AND DIFFERENTIAL, COMPREHENSIVE METABOLIC PANEL (D69.6) Thrombocytopenia (HCC) Plan: CT ABD/PEL W IVCON, CT CHEST W IVCON, iv contrast (will be provided with radiology test), enteric contrast (will be provided with radiology test), CARCINOEMBRYONIC ANTIGEN, COMPLETE BLOOD COUNT AND DIFFERENTIAL, COMPREHENSIVE METABOLIC PANEL (K76.0) Fatty liver Plan: CT ABD/PEL W IVCON, CT CHEST W IVCON, iv contrast (will be provided with radiology test), enteric contrast (will be provided with radiology test), CARCINOEMBRYONIC ANTIGEN, COMPLETE BLOOD COUNT AND DIFFERENTIAL, COMPREHENSIVE METABOLIC PANEL PAST MEDICAL HISTORY Diagnosis Date Anemia High cholesterol HTN (hypertension) Hypothyroidism PAST SURGICAL HISTORY Procedure Laterality Date ;TOTAL HYSTERECTMY TUBE(S) &/OR OVARY BRONCHOSCOPY W/PLACEMENT TRACHEAL STENT COLECTOMY PARTIAL W/ANASTOMOSIS 12/28/2023 laparoscopic converted to open COLONOSCOPY SCREENING LIPOMA (MEDIUM) Social History Tobacco Use Smoking status: Never Smokeless tobacco: Never Vaping Use Vaping status: Never Used Substance Use Topics Alcohol use: Yes Comment: 2 drinks a couple times a month Drug use: Never FAMILY HISTORY Problem Relation Age of Onset Stroke Mother COPD Father Heart Father Colon Cancer Brother I spent a total of 30 minutes on the date of service which included preparing to see the patient, lnwd-xa-wgvf patient care, completing clinical documentation, performing a medically appropriate examination, counseling and educating the patient/family/caregiver, ordering medications, tests, or procedures, independently interpreting results (not separately reported), communicating results to the patient/family/caregiver, and care coordination (not separately reported). Jose Wing MD, CPE Hematology and Oncology Services Provided at: [place], [place] Scribe Attestation: This note was scribed by Kimi Garvey on November 03, 2024 under the direction and supervisionof Dr. Jose Wing. I attest that all of the information documented is correct to the best of my knowledge. Provider Attestation: I, Jose Wing MD, attest that all information documented by the above scribe is correct, and was supervised by me and under my direction. CC: Dr. Justin Francois documented in this encounter[facility] NoteHNO ID: [id number] Author: JOSE WING MD Service: ? Author Type: Physician Type: Progress Notes Filed: 11/03/2024 19:57 Note Text: NAME: Nancy Sue [facility] NO.: [id number] DATE OF SERVICE: November 03, 2024 (Dianne) Some elements in this clinic note that are critical to medical decision making have been carefully reviewed and included from a prior clinic note dated: July 14, 2024 (Dianne) Referring Provider: Kaley Francois Additional Clinicians involved in Nancy Sue's care: Dr. Justin Buckner, Dr. 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 Final path at resection was Stage I - no treatment response noted on pathology evaluation. Started FOLFOX on 08/29/2023. Cancer Staging Cancer of sigmoid (HCC) Staging form: Colon and Rectum, AJCC 8th Edition - Clinical stage from 06/29/2023: Stage IVB (cTX, cNX, cM1b) - Signed by Jose Wing MD on 07/20/2023 - Pathologic stage from 01/03/2024: Stage I (ypT2, pN0, cM0) - Signed by Jose Wing MD on 01/13/2024 LN's identified are borderline - may be Overstaged. Pulmonary GPS Biopsy of Right lung lesion - Carcinoid. PLAN: CT CAP with labs (with port) in 3 months RTC in 1 week after to review HPI: CASE HISTORY: Reverse Chronological Order 10/27/2024 - CT CAP: Chest: Stable CT of the chest. Stable appearance of bilateral nodular opacities. No new nodules are identified. No evidence of bulky intrathoracic lymphadenopathy. A/P: Postsurgical changes, without evidence of new abdominal or pelvic metastatic disease. Intra-abdominal lymphadenopathy which is either stable or slightly decreased in size when compared to prior exam. New fluid collection within a surgical scar, likely representing a seroma or hematoma. 10/27/2024 - CEA: 0.8 02/22/2024-02/24/2024 - Admitted for ileostomy closure 01/17/2024-01/19/2024 - Admitted at [facility] for skin irritation at stoma site 01/11/2024 - CEA: 0.7 12/28/2023 - Laparoscopic converted to open low anterior resection, Splenic flexure mobilization, Diverting loop ileostomy, Flexible Sigmoidoscopy: Dr. Alessandro Yanes Hepatic artery lymph node, excision: - One lymph node, negative for malignancy (0/1). B. Sigmoid colon and proximal rectum, resection: - Residual invasive adenocarcinoma (see synoptic report). - One additional tubular adenoma. - Diverticular disease with associated focal active inflammation. - Sixteen lymph nodes, negative for malignancy (0/16). C. Distal donut, excision: - Segment of rectum with no diagnostic abnormality. 11/07/2023 - CT CAP: Chest: Streaky scarring/discoid atelectasis in the left upper lobe, increased since 08/13/23. Several subcentimeter nodular opacities measuring up to 8 mm, stable since 06/22/23. Findings compatible with previous granulomatous disease. A/P: Mild splenomegaly, increased in size since 06/22/23. Goqa-gs-xmdgajpt abdominal lymphadenopathy, stable. Increased streaky reticulation of the pelvic fat may represent post therapy changes or edema. Previously noted thickening of the rectosigmoid colon wall is less conspicuous. Sigmoid colon diverticulosis without evidence of diverticulitis. Nonobstructing left renal stones. 11/07/2023 - CEA: 1.2 08/29/2023-11/21/2023 - 5 cycles FOLFOX 08/29/2023 - CEA: 2.5 08/22/2023 - TB-FNA Right lower Lobe: - Neoplastic cells present derived from low-grade neuroendocrine tumor 07/13/2023 - CT PET: Intense uptake along more than 7 cm of the sigmoid colon consistent with known primary, associated with mildly prominent with kair-sy-ralpfgyr FDG uptake in upper mesenteric and retroperitoneal lymphadenopathy. 0.7 cm right lower lobe lung nodule, below PET resolution. 07/06/2023 - CT Pelvis: Irregular circumferential distal sigmoid colonic wall thickening, extending over a length of 8 cm, compatible with known sigmoid colonic neoplasm. No metastatic disease within the pelvis. 06/22/2023 - CT CAP: Right lower lobe subcentimeter pulmonary nodules, larger measuring 0.7 cm. Correlation with follow-up examinations is recommended, as the possibility of metastases is not excluded Lymph nodes: Several mildly enlarged periceliac/periportal lymph nodes are appreciated, largest measuring approximately 1.7 x 1.3 cm, image 35, series 6. Portacaval adenopathy measures (more content not included)...[facility]02-17-2025 History of Present illness Narrative* Kishan Lee RN - 10/27/2024 9:15 AM EST Radiology Service Progress Note DATE OF SERVICE: October 27, 2024 TIME: 9:40 AM PATIENT WEIGHT: 222LBS PATIENT IDENTITY VERIFICATION COMPLETED USING TWO (2) STANDARD IDENTIFIERS: Name and Date of confirmed by patient verbally. FALL SCREENING: Has the patient had 2 falls in the last year or 1 fall with injury or currently using an Ambulatory Assistive Device (Walker, Cane, Wheelchair, Crutches, etc.)? No PATIENT GENDER DATA: Assigned female at . status: : No status:NO. ALLERGIES: Reviewed and unchanged CONTRAST ALLERGY: No EXAM: CT -CONTRAST INDUCED NEPHROPATHY RISK FACTORS: Patient age > 60 years CREATININE: Creatinine Date Value Ref Range Status 10/27/2024 0.99 (H) 0.58 - 0.96 mg/dL Final 07/14/2024 1.00 (H) 0.58 - 0.96 mg/dL Final 02/24/2024 1.02 (H) 0.58 - 0.96 mg/dL Final Estimated Glomerular Filtration Rate Date Value Ref Range Status 10/27/2024 63 >=60 mL/min/1.73m Final Comment: Estimated Glomerular Filtration Rate (eGFR) is calculated using the 2020 CKD-EPI creatinine equation. This equation utilizes serum creatinine, sex, and age as parameters. The creatinine assay has traceable calibration to isotope dilution- mass spectrometry. Refer to KDIGO guidelines for clinical interpretation. In patients with unstable renal function, e.g. those with acute kidney injury, the eGFRmay not accurately reflect actual GFR. P.O.C.T. RESULTS: POC done: Yes, See Lab Tab October 27, 2024 TREATMENT: N/A IV SITE: Ambulatory: A power injectable Mediport was accessed in the Right chest with a .75 inch 20gauge needle. Blood Return, Flushed easily with normal saline, and No Complications port flushed with 20cc NS post scan via pump IV SITE APPEARANCE: Clean,Dry and Intact SIGNATURE: Kishan Lee RN PATIENT NAME: Nancy Sue DATE: October 27, 2024 TIME: 9:40 AM * Penelope Ramos RT(R) - 10/27/2024 9:15 AM EST Radiology Service Progress Note PATIENT NAME: Nancy Sue DATE OF SERVICE: October 27, 2024 TIME: 10:23 AM PATIENT IDENTITY VERIFICATION COMPLETED USING TWO (2) IDENTIFIERS: Name and Date of confirmedby patient verbally. FALL SCREENING: Has the patient had 2 falls in the last year or 1 fall with injury or currently using an Ambulatory Assistive Device (Walker, Cane, Wheelchair, Crutches, etc.)? No PATIENT GENDER DATA: Assigned female at . status: : No status:NO. PATIENT RELEVANT IMPLANT DATA REVIEWED: Not Applicable PATIENT PRESENTS WITH AN IMPLANTABLE OR ATTACHED HEEL SCOURER: No RADIOLOGY DEPARTMENT: CT; Exam(s) Completed: Chest Abdomen Pelvis PERIPHERAL IV DATA: Not applicable SIGNED BY: LUCIA Diallo) October 27, 2024 10:23 AM POWER port scanned 08/2023 documented in this encounterSelect [facility]02-17-2025 NoteHNO ID: [id number] Author: PENELOPE RAMOS RT(R) Service: ? Author Type: Technologist Type: Progress Notes Filed: 10/27/2024 10:24 Note Text: Radiology Service Progress Note PATIENT NAME: Nancy Sue DATE OF SERVICE: October 27, 2024 TIME: 10:23 AM PATIENT IDENTITY VERIFICATION COMPLETED USING TWO (2) IDENTIFIERS: Name and Date of confirmed by patient verbally. FALL SCREENING: Has the patient had 2 falls in the last year or 1 fall with injury or currently using an Ambulatory Assistive Device (Walker, Cane, Wheelchair, Crutches, etc.)? No PATIENT GENDER DATA: Assigned female at . status: : No status: NO. PATIENT RELEVANT IMPLANT DATA REVIEWED: Not Applicable PATIENT PRESENTS WITH AN IMPLANTABLE OR ATTACHED HEEL SCOURER: No RADIOLOGY DEPARTMENT: CT; Exam(s) Completed: Chest Abdomen Pelvis PERIPHERAL IV DATA: Not applicable SIGNED BY: Penelope Ramos, RT(R) October 27, 2024 10:23 AM POWER port scanned [facility]02-17-2025 NoteHNO ID: [id number] Author: KISHAN LEE RN Service: ? Author Type: Registered Nurse Type: Progress Notes Filed: 10/27/2024 09:42 Note Text: Radiology Service Progress Note DATE OF SERVICE: October 27, 2024 TIME: 9:40 AM PATIENT WEIGHT: 222LBS PATIENT IDENTITY VERIFICATION COMPLETED USING TWO (2) STANDARD IDENTIFIERS: Name and Date of confirmed by patient verbally. FALL SCREENING: Has the patient had 2 falls in the last year or 1 fall with injury or currently using an Ambulatory Assistive Device (Walker, Cane, Wheelchair, Crutches, etc.)? No PATIENT GENDER DATA: Assigned female at . status: : No status: NO. ALLERGIES: Reviewed and unchanged CONTRAST ALLERGY: No EXAM: CT -CONTRAST INDUCED NEPHROPATHY RISK FACTORS: Patient age > 60 years CREATININE: Creatinine Date Value Ref Range Status 10/27/2024 0.99 (H) 0.58 - 0.96 mg/dL Final 07/14/2024 1.00 (H) 0.58 - 0.96 mg/dL Final 02/24/2024 1.02 (H) 0.58 - 0.96 mg/dL Final Estimated Glomerular Filtration Rate Date Value Ref Range Status 10/27/2024 63 >=60 mL/min/1.73m? Final Comment: Estimated Glomerular Filtration Rate (eGFR) is calculated using the 2020 CKD-EPI creatinine equation. This equation utilizes serum creatinine, sex, and age as parameters. The creatinine assay has traceable calibration to isotope dilution-mass spectrometry. Refer to KDIGO guidelines for clinical interpretation. In patients with unstable renal function, e.g. those with acute kidney injury, the eGFR may not accurately reflect actual GFR. P.O.C.T. RESULTS: POC done: Yes, See Lab Tab October 27, 2024 TREATMENT: N/A IV SITE: Ambulatory: A power injectable Mediport was accessed in the Right chest with a .75 inch 20 gauge needle. Blood Return, Flushed easily with normal saline, and No Complications port flushed with 20cc NS post scan via pump IV SITE APPEARANCE: Clean,Dry and Intact SIGNATURE: Kishan Lee RN PATIENT NAME: Nancy Sue DATE: October 27, 2024 TIME: 9:40 [facility]11-25-2024 Nurse Note* Lin Luo RN - 08/04/2024 8:06 AM EST PATIENT EDUCATION TOPIC: PROCEDURE / SURGERY: Pre Procedure Teaching: colonoscopy PATIENT NAME: Nancy Sue PATIENT LOCATION: Room/bed info not found READINESS TO LEARN COGNITIVE ABILITY: Alert and oriented MOTIVATION TO LEARN: Interested FAMILY SUPPORT: Unable to assess - Family not present INSTRUCTION PROVIDED TO: Patient PATIENT LEARNS BEST BY: Verbal Instruction FACTORS AFFECTING LEARNING: None PHYSICAL LIMITATIONS AFFECTING LEARNING: None LEARNING RESPONSE DIAGNOSIS: ADULT: colonoscopy PATIENT/FAMILY RESPONSE: Verbalizes understanding of: PRE-PROCEDURE INSTRUCTIONS-Correct action to take to follow pre-procedure instructions METHOD OF INSTRUCTION: Verbal instruction FOLLOW-UP PLAN: Patient instructed to call with any further issues Follow up phone call. INSTRUCTIONAL AIDS USED: NA SUPPLEMENTAL MATERIAL PROVIDED TO PATIENT: None REFERRAL (RECOMMENDATION): None [facility] Nurse Note* Lin Luo RN - 08/04/2024 8:06 AM EST PATIENT EDUCATION TOPIC: PROCEDURE / SURGERY: Pre Procedure Teaching: colonoscopy PATIENT NAME: Nancy Sue PATIENT LOCATION: Room/bed info not found READINESS TO LEARN COGNITIVE ABILITY: Alert and oriented MOTIVATION TO LEARN: Interested FAMILY SUPPORT: Unable to assess - Family not present INSTRUCTION PROVIDED TO: Patient PATIENT LEARNS BEST BY: Verbal Instruction FACTORS AFFECTING LEARNING: None PHYSICAL LIMITATIONS AFFECTING LEARNING: None LEARNING RESPONSE DIAGNOSIS: ADULT: colonoscopy PATIENT/FAMILY RESPONSE: Verbalizes understanding of: PRE-PROCEDURE INSTRUCTIONS-Correct action to take to follow pre-procedure instructions METHOD OF INSTRUCTION: Verbal instruction FOLLOW-UP PLAN: Patient instructed to call with any further issues Follow up phone call. INSTRUCTIONAL AIDS USED: NA SUPPLEMENTAL MATERIAL PROVIDED TO PATIENT: None REFERRAL (RECOMMENDATION): None * Lin Luo RN - 08/04/2024 7:17 AM EST PATIENT EDUCATION TOPIC: PROCEDURE / SURGERY: Pre Procedure Teaching: colonoscopy PATIENT NAME: Nancy Sue PATIENT LOCATION: Room/bed info not found READINESS TO LEARN COGNITIVE ABILITY: Alert and oriented MOTIVATION TO LEARN: Interested FAMILY SUPPORT: Unable to assess - Family not present INSTRUCTION PROVIDED TO: Patient PATIENT LEARNS BEST BY: Verbal Instruction FACTORS AFFECTING LEARNING: None PHYSICAL LIMITATIONS AFFECTING LEARNING: None LEARNING RESPONSE DIAGNOSIS: ADULT: colonoscopy PATIENT/FAMILY RESPONSE: Verbalizes understanding of: PRE-PROCEDURE INSTRUCTIONS-Correct action to take to follow pre-procedure instructions METHOD OF INSTRUCTION: Verbal instruction FOLLOW-UP PLAN: TBD INSTRUCTIONAL AIDS USED: NA SUPPLEMENTAL MATERIAL PROVIDED TO PATIENT: None REFERRAL (RECOMMENDATION): None documented in this encounterSelect [facility]11-25-2024 History and physical note * Alpa Hart MD - 08/04/2024 7:30 AM EST UPDATED HISTORY AND PHYSICAL EXAMINATION FOR SCOPE SERVICE DATE: 08/04/2024 SERVICE TIME: 7:28 AM The prior History and Physical (completed in the past 30 days) has been reviewed and the patient has been examined. The contents accurately reflect the patient's condition with the following additions or revisions since the H&P was completed. HPI: This is a 64 year old female who presents for surveillance scope (sigmoid cancer s/p chemo f/b LAR on 12/2023). Last scope: 06/2023 Symptoms: No Family history: Yes, brother Antiplatelets/Anticoagulant: No HISTORY: PAST MEDICAL HISTORY Diagnosis Date Anemia High cholesterol HTN (hypertension) Hypothyroidism PAST SURGICAL HISTORY Procedure Laterality Date ;TOTAL HYSTERECTMY TUBE(S) &/OR OVARY BRONCHOSCOPY W/PLACEMENT TRACHEAL STENT COLECTOMY PARTIAL W/ANASTOMOSIS 12/28/2023 laparoscopic converted to open COLONOSCOPY SCREENING LIPOMA (MEDIUM) Prior to Admission medications as of 08/04/24 0724 Medication Sig Last Dose Taking ibuprofen (MOTRIN) 200 mg tablet Take 2 tablets by mouth every 6 hours. Yes iron glycinate,polysacch cmplx (IRON BIS GLYCIN-FE P-SAC CMPLX ORAL) Take 20 mg by mouth once daily. Past Week Yes levothyroxine (SYNTHROID) 50 mcg tablet Take 50 mcg by mouth once daily. 08/03/2024 Yes omega 2-ibx-fmk-fish oil 120-180-500 mg cap Take 500 mg by mouth once daily. Past Week Yes iv contrast (will be provided with radiology test) CT Chest ABD/PEL-Inject, intravenously, once for1 dose.No IV access, insert saline lock prior [...] both Oral and Rectal, Enteric Tube, Stoma orIndwelling Catheter, Enteric Contrast as designated per enteric contrast guidelines collagen, hydrolysate, bovine, (COLLAGEN, HYDR, BOVINE,, BULK,) 100 % powd Take 1 Dose by mouth once daily. ondansetron (ZOFRAN) 8 mg tablet Take 1 tablet by mouth every 8 hours as needed for nausea/vomiting. Patient not taking: Reported on 06/19/2024 prochlorperazine (COMPAZINE) 10 mg tablet Take 1 tablet by mouth every 6 hours as needed. Patient not taking: Reported on 06/19/2024 Pramoxine-Hydrocortisone (ANALPRAM-HC) 1-1 % rectal cream 1 g by RECTAL route two times a day as needed (rectal discomfort). Unknown ALLERGIES Allergen Reactions Auybqel-Nmc-Qhm Red* Other: See Comments, Unknown, Myalgia myalgias PAST ANESTHESIA HISTORY: No history of adverse event ASA Class: Examination indicates no changes. AIRWAY: LUNGS: CTA with no wheezing CARDIAC: RRR with no murmurs Provisional Diagnosis/Treatment Plan: - Proceed with colonoscopy - Consent obtained -> Advised the patient of the risks of the procedure including, but no limited to: allergic reactions to medications, possibility or missing a significant lesion, bleeding (including delayed bleeding) and perforation (possibly necessitating surgical intervention). Alpa Hart MD Associated attestation - Kaley Francois MD - 08/04/2024 7:56 AM EST I evaluated the patient and personally participated in the freed components. I agree with the resident's findings and plan as documented and have discussed the case and management of the patient's carewith the resident. Signature: Kaley Francois MD Service Date: 08/04/2024 [facility] Work Phone: [phone] History and physical note* Alpa Hart MD - 08/04/2024 7:30 AM EST UPDATED HISTORY AND PHYSICAL EXAMINATION FOR SCOPE SERVICE DATE: 08/04/2024 SERVICE TIME: 7:28 AM The prior History and Physical (completed in the past 30 days) has been reviewed and the patient has been examined. The contents accurately reflect the patient's condition with the following additions or revisions since the H&P was completed. HPI: This is a 64 year old female who presents for surveillance scope (sigmoid cancer s/p chemo f/b LAR on 12/2023). Last scope: 06/2023 Symptoms: No Family history: Yes, brother Antiplatelets/Anticoagulant: No HISTORY: PAST MEDICAL HISTORY Diagnosis Date Anemia High cholesterol HTN (hypertension) Hypothyroidism PAST SURGICAL HISTORY Procedure Laterality Date ;TOTAL HYSTERECTMY TUBE(S) &/OR OVARY BRONCHOSCOPY W/PLACEMENT TRACHEAL STENT COLECTOMY PARTIAL W/ANASTOMOSIS 12/28/2023 laparoscopic converted to open COLONOSCOPY SCREENING LIPOMA (MEDIUM) Prior to Admission medications as of 08/04/24 0724 Medication Sig Last Dose Taking ibuprofen (MOTRIN) 200 mg tablet Take 2 tablets by mouth every 6 hours. Yes iron glycinate,polysacch cmplx (IRON BIS GLYCIN-FE P-SAC CMPLX ORAL) Take 20 mg by mouth once daily. Past Week Yes levothyroxine (SYNTHROID) 50 mcg tablet Take 50 mcg by mouth once daily. 08/03/2024 Yes omega 4-epo-tqt-fish oil 120-180-500 mg cap Take 500 mg by mouth once daily. Past Week Yes iv contrast (will be provided with radiology test) CT Chest ABD/PEL-Inject, intravenously, once for1 dose.No IV access, insert saline lock prior [...] both Oral and Rectal, Enteric Tube, Stoma orIndwelling Catheter, Enteric Contrast as designated per enteric contrast guidelines collagen, hydrolysate, bovine, (COLLAGEN, HYDR, BOVINE,, BULK,) 100 % powd Take 1 Dose by mouth once daily. ondansetron (ZOFRAN) 8 mg tablet Take 1 tablet by mouth every 8 hours as needed for nausea/vomiting. Patient not taking: Reported on 06/19/2024 prochlorperazine (COMPAZINE) 10 mg tablet Take 1 tablet by mouth every 6 hours as needed. Patient not taking: Reported on 06/19/2024 Pramoxine-Hydrocortisone (ANALPRAM-HC) 1-1 % rectal cream 1 g by RECTAL route two times a day as needed (rectal discomfort). Unknown ALLERGIES Allergen Reactions Wdybyxs-Itz-Ayi Red* Other: See Comments, Unknown, Myalgia myalgias PAST ANESTHESIA HISTORY: No history of adverse event ASA Class: Examination indicates no changes. AIRWAY: LUNGS: CTA with no wheezing CARDIAC: RRR with no murmurs Provisional Diagnosis/Treatment Plan: - Proceed with colonoscopy - Consent obtained -> Advised the patient of the risks of the procedure including, but no limited to: allergic reactions to medications, possibility or missing a significant lesion, bleeding (including delayed bleeding) and perforation (possibly necessitating surgical intervention). Alpa Hart MD Associated attestation - Kaley Francois MD - 08/04/2024 7:56 AM EST I evaluated the patient and personally participated in the freed components. I agree with the resident's findings and plan as documented and have discussed the case and management of the patient's carewith the resident. Signature: Kaley Francois MD Service Date: 08/04/2024 documented in this encounterSelect [facility] Nurse Note* Lin Luo RN - 08/04/2024 7:17 AM EST PATIENT EDUCATION TOPIC: PROCEDURE / SURGERY: Pre Procedure Teaching: colonoscopy PATIENT NAME: Nancy Sue PATIENT LOCATION: Room/bed info not found READINESS TO LEARN COGNITIVE ABILITY: Alert and oriented MOTIVATION TO LEARN: Interested FAMILY SUPPORT: Unable to assess - Family not present INSTRUCTION PROVIDED TO: Patient PATIENT LEARNS BEST BY: Verbal Instruction FACTORS AFFECTING LEARNING: None PHYSICAL LIMITATIONS AFFECTING LEARNING: None LEARNING RESPONSE DIAGNOSIS: ADULT: colonoscopy PATIENT/FAMILY RESPONSE: Verbalizes understanding of: PRE-PROCEDURE INSTRUCTIONS-Correct action to take to follow pre-procedure instructions METHOD OF INSTRUCTION: Verbal instruction FOLLOW-UP PLAN: TBD INSTRUCTIONAL AIDS USED: NA SUPPLEMENTAL MATERIAL PROVIDED TO PATIENT: None REFERRAL (RECOMMENDATION): None [facility]11-[facility] Telephone encounter Note* Telephone Encounter - Ai Palomino RN - 07/15/2024 8:04 AM EST Images from the original note were not included. Jose Wing MD P Rust Triage Pool Iron sat was just a little bit low - bt overall anemia is improving so no need for iron. CEA did not get added - we will check next time. Pt notified and agreeable to plan of care. Pt denies any questions, needs or concerns at this time. Ai Palomino RN [facility]11-05-2024 Miscellaneous Notes* Telephone Encounter - Ai Palomino RN - 07/15/2024 8:04 AM EST Images from the original note were not included. Jose Wing MD P Rust Triage Pool Iron sat was just a little bit low - bt overall anemia is improving so no need for iron. CEA did not get added - we will check next time. Pt notified and agreeable to plan of care. Pt denies any questions, needs or concerns at this time. Ai Palomino RN * Telephone Encounter - Montse Power - 07/14/2024 10:43 AM EST Images from the original note were not included. documented in this encounterSelect [facility]11-04-2024 Telephone encounter Note * Telephone Encounter - Montse Power - 07/14/2024 10:43 AM EST Images from the original note were not included. [facility] History of Present illness Narrative* Jose Wing MD - 07/14/2024 10:40 AM EST Images from the original note were not included. NAME: Nancy Sue [facility] NO.: [id number] DATE OF SERVICE: July 14, 2024 (Dianne) Some elements in this clinic note that are critical to medical decision making have been carefully reviewed and included from a prior clinic note dated: January 11, 2024 (Dianne) Referring Provider: Kaley Francosi Additional Clinicians involved in Nancy Sue's care: Dr. Justin Buckner, Dr. 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 systemic therapy. She was diagnosed 05/30/2023 on colonoscopydone for rectal bleeding that started in February 2023. Surprisingly not iron deficient. PET shows mesenteric and retroperitoneal LN's. Most consistent with stage IV disease. 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 Final path at resection was Stage I - no treatment response noted on pathology evaluation. Started FOLFOX on 08/29/2023. Cancer Staging Cancer of sigmoid (HCC) Staging form: Colon and Rectum, AJCC 8th Edition - Clinical stage from 06/29/2023: Stage IVB (cTX, cNX, cM1b) - Signed by Jose Wing MD on 07/20/2023 - Pathologic stage from 01/03/2024: Stage I (ypT2, pN0, cM0) - Signed by Joes Wing MD on 01/13/2024 LN's identified are borderline - may be Overstaged. Pulmonary GPS Biopsy of Right lung lesion - Carcinoid. PLAN: Add CEA to today's labs Triage to call with results of iron studies CT CAP with labs (with port) in 3 months RTC in 1 week after to review HPI: CASE HISTORY: Reverse Chronological Order 02/22/2024-02/24/2024 - Admitted for ileostomy closure 01/17/2024-01/19/2024 - Admitted at [facility] for skin irritation at stoma site 12/28/2023 - Laparoscopic converted to open low anterior resection, Splenic flexure mobilization, Diverting loop ileostomy, Flexible Sigmoidoscopy A. Hepatic artery lymph node, excision: - One lymph node, negative for malignancy (0/1). B. Sigmoid colon and proximal rectum, resection: - Residual invasive adenocarcinoma (see synoptic report). - One additional tubular adenoma. - Diverticular disease with associated focal active inflammation. - Sixteen lymph nodes, negative for malignancy (0/16). C. Distal donut, excision: - Segment of rectum with no diagnostic abnormality. 11/07/2023 - CT CAP: Chest: Streaky scarring/discoid atelectasis in the left upper lobe, increased since 08/13/23. Several subcentimeter nodular opacities measuring up to 8 mm, stable since 06/22/23. Findings compatible with previous granulomatous disease. A/P: Mild splenomegaly, increased in size since 06/22/23. Nfgf-ky-cpjmazag abdominal lymphadenopathy, stable. Increased streaky reticulation of the pelvic fat may represent post therapy changes or edema. Previously noted thickening of the rectosigmoid colon wall is less conspicuous. Sigmoid colon diverticulosis without evidence of diverticulitis. Nonobstructing left renal stones. 08/29/2023-11/21/2023 - 5 cycles FOLFOX 08/22/2023 - TB-FNA Right lower Lobe: - Neoplastic cells present derived from low-grade neuroendocrine tumor 07/13/2023 - CT PET: Intense uptake along more than 7 cm of the sigmoid colon consistent with known primary, associated with mildly prominent with rbpu-jz-wrilsrte FDG uptake in upper mesenteric and retroperitoneal [...] measures 1.5 x 1.0 cm, image 36, series6 Additional subcentimeter retroperitoneal and gastrohepatic ligament lymph nodes are identified. 06/08/2023 - Flex Sig Dr. Francois - Malignant tumor in the distal sigmoid colon 05/30/2023 - Colonoscopy Dr. Lee 3 polyps and recto-sigmoid mass - Invasive mod. Diff adenoca. 02/2023 - Bowel pressure and rectal bleeding Updated Visit, July 14, 2024: Nancy returns today for a follow up. She is doing well overall. She has a colonoscopy scheduled forthe end of the month. Platelets remain low per her normal, she is not anemic. Iron studies are pending. Updated Visit, January 11, 2024: Nancy returns today with Leoncio. Lymph node pathology was negative. She will have an ostomy bag for 2 months. We discussed the lack of change to her tumor after chemotherapy - continued chemotherapy is unlikely to help in the future. She is not anemic and platelets are normal. Updated Visit, November 21, 2023: Nancy returns [...] break from therapy and a trip to [place]. She was thrombocytopenic and mildlyneutropenic at last visit causing a delay. Reviewed [...] is looking forward to a trip to [place] 10/01 - 10/06. Updated Visit, September 12, [...] signs/symptoms of infection. No bleeding or abnormal bruising.Overall, she is doing well and wishes to proceed with treatment as planned. Updated Visit, September 07, 2023: Nancy Sue returns for scheduled follow-up. She received cycle 1 FOLFOX on 08/29/2023. Right after treatment the same day she had developed cold sensitivity. Overall, she tolerated treatment well. She denies any mouth sores. No significant diarrhea. She has not had any further blood in her stoolssince Alexandrea. She remains on 1 oral iron pills [...] treatment. Updated Visit, July 27, 2023: Virtual Visit Discussed with nancy and Leoncio plan from tumor board review. Discussed lung lesion and need for biopsy. As well as potentially overstated and subsequent overstaging LN of retroperitoneum and upper mesenteric LN stations. Patient and agree with the plan. Updated Visit, July 20, 2023: Nancy returns today with Leoncio and daughter Jnenifer for follow up. I reviewed her recent PET CTwith them, we should likely plan on chemotherapy as next steps as her disease can be classified as Stage 4. I will bring her case to the tumor board in order to get a broader range of recommendations, in the meantime I will start preparing to start her on chemotherapy. She reports still having somebloody stools, which she feels may have been a little worse lately than in the past. She would liketo have a second opinion in addition to the tumor board recommendations. Her daughter Jennifer works in cardiology. This was a very lengthy and emotional discussion as it was unexpected by us all. Initial Visit, June 29, 2023: Nancy Sue presents today Hematology and Oncology evaluation. She is a 63 year old female who hadchanges in bowel habits and presumed hemorrhoidal bleeding for 3 months. She underwent colonoscopy and was found to have a recto-sigmoid mass that was not obstructing by Dr Lee. Path consistent withmalignancy. Staging studies incomplete but she does have selwyn-hepatis nodes that are concerning for metastatic disease. Additionally, lung nodules also concerning for metastasis. Continues to have bowel pressure. Rectal bleeding. Here with Leoncio who is a pollution control chemist and getting ready to retire. 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 REVIEW OF SYSTEMS Per HPI and otherwise negative by full review of organ systems. ECOG PERFORMANCE STATUS: 0 PHYSICAL EXAMINATION: Vitals: BP 152/74 Pulse 61 Temp (Src) 97.7 (Temporal) Resp 16 Ht 5' 4.016 (1.63m) Wt 217lb 9.5 oz (98.7kg) SpO2 96% BMI 37.33 kg/(m^2). Body surface area is 2.11 meters squared. Exam limited to gross visualization [...] wounds or petechiae. ALLERGIES: ALLERGIES Allergen Reactions Qsxesze-Gbn-Nar Red* Other: See Comments, Unknown, Myalgia myalgias MEDICATIONS: ibuprofen (MOTRIN) 200 mg tablet Take 2 tablets by mouth every 6 hours. iron glycinate,polysacch cmplx (IRON BIS GLYCIN-FE P-SAC CMPLX ORAL) Take 20 mg by mouth once daily. collagen, hydrolysate, bovine, (COLLAGEN, HYDR, BOVINE,, BULK,) 100 % powd Take 1 Dose by mouth once daily. levothyroxine (SYNTHROID) 50 mcg tablet Take 50 mcg by mouth once daily. Pramoxine-Hydrocortisone (ANALPRAM-HC) 1-1 % rectal cream 1 g by RECTAL route two times a day as needed (rectal discomfort). omega 2-ler-oxp-fish oil 120-180-500 mg cap Take 500 mg by mouth once daily. iv contrast (will be provided with radiology test) CT Chest ABD/PEL-Inject, intravenously, once for1 dose.No IV access, insert saline lock prior [...] both Oral and Rectal, Enteric Tube, Stoma orIndwelling Catheter, Enteric Contrast as designated per enteric contrast guidelines ondansetron (ZOFRAN) 8 mg tablet Take 1 tablet by mouth every 8 hours as needed for nausea/vomiting. (Patient not taking: Reported on 06/19/2024) prochlorperazine (COMPAZINE) 10 mg tablet Take 1 tablet by mouth every 6 hours as needed. (Patient not taking: Reported on 06/19/2024) LABORATORY VALUES: WBC (k/uL) Date Value 07/14/2024 5.14 RBC (m/uL) Date Value 07/14/2024 4.10 Hemoglobin (g/dL) Date Value 07/14/2024 12.0 Hematocrit (%) Date Value 07/14/2024 36.0 MCV (fL) Date Value 07/14/2024 87.8 MCH (pg) Date Value 07/14/2024 29.3 MCHC (g/dL) Date Value 07/14/2024 33.3 RDW-CV (%) Date Value 07/14/2024 14.4 Platelet Count (k/uL) Date Value 07/14/2024 134 (L) MPV (fL) Date Value 07/14/2024 10.9 Glucose (mg/dL) Date Value 07/14/2024 106 (H) BUN (mg/dL) Date Value 07/14/2024 16 Creatinine (mg/dL) Date Value 07/14/2024 1.00 (H) Sodium (mmol/L) Date Value 07/14/2024 141 Potassium (mmol/L) Date Value 07/14/2024 4.7 Chloride (mmol/L) Date Value 07/14/2024 106 CO2 (mmol/L) Date Value 07/14/2024 25 Protein, Total (g/dL) Date Value 07/14/2024 6.6 Albumin (g/dL) Date Value 07/14/2024 4.0 Calcium, Total (mg/dL) Date Value 07/14/2024 9.2 Alkaline Phosphatase (U/L) Date Value 07/14/2024 66 Bilirubin, Total (mg/dL) Date Value 07/14/2024 0.2 AST (U/L) Date Value 07/14/2024 25 ALT (U/L) Date Value 07/14/2024 21 CEA (ng/mL) Date Value 01/11/2024 0.7 11/07/2023 1.2 09/26/2023 1.4 08/29/2023 2.5 06/29/2023 1.5 DIAGNOSIS: (C18.7) Malignant neoplasm of sigmoid colon (HCC) (primary encounter diagnosis) Plan: CARCINOEMBRYONIC ANTIGEN, COMPLETE BLOOD COUNT AND DIFFERENTIAL, COMPREHENSIVE METABOLIC PANEL, IRON AND TIBC, FERRITIN, VITAMIN B12, FOLATE, SERUM, CARCINOEMBRYONIC ANTIGEN, CT ABD/PEL W IVCON, CT CHEST W IVCON PAST MEDICAL HISTORY Diagnosis Date Anemia High cholesterol HTN (hypertension) Hypothyroidism PAST SURGICAL HISTORY Procedure Laterality Date ;TOTAL HYSTERECTMY TUBE(S) &/OR OVARY BRONCHOSCOPY W/PLACEMENT TRACHEAL STENT COLECTOMY PARTIAL W/ANASTOMOSIS 12/28/2023 laparoscopic converted to open COLONOSCOPY SCREENING LIPOMA (MEDIUM) Social History Tobacco Use Smoking status: Never Smokeless tobacco: Never Vaping Use Vaping status: Never Used Substance Use Topics Alcohol use: Yes Comment: 2 drinks a couple times a month Drug use: Never FAMILY HISTORY Problem Relation Age of Onset Stroke Mother COPD Father Heart Father Colon Cancer Brother I spent a total of 30 minutes on the date of service which included preparing to see the patient, bsyg-tu-rmnf patient care, completing clinical documentation, performing a medically appropriate examination, counseling and educating the patient/family/caregiver, ordering medications, tests, or procedures, independently interpreting results (not separately reported), communicating results to the patient/family/caregiver, and care coordination (not separately reported). Jose Wing MD, CPE Hematology and Oncology Services Provided at: [place], [place] Scribe Attestation: This note was scribed by Kimi Garvey on July 14, 2024 under the direction and supervision of Dr. Jose Wing. I attest that all of the information documented is correct to the best of myknowledge. Provider Attestation: I, Jose Wing MD, attest that all information documented by the above scribe is correct, and was supervised by me and under my direction. CC: Dr. Justin Francois documented in this encounterSelect [facility]24 Instructions* Patient Instructions* Kimi Garvey - 07/14/2024 10:40 AM EST Add CEA to today's labs Triage to call with results of iron studies CT CAP with labs (with port) in 3 months RTC in 1 week after to review documented in this encounterSelect [facility]11-04-2024 NoteHNO ID: [id number] Author: JOSE WING MD Service: ? Author Type: Physician Type: Progress Notes Filed: 07/15/2024 06:36 Note Text: NAME: Nancy Sue CLINIC NO.: [id number] DATE OF SERVICE: July 14, 2024 (Dianne) Some elements in this clinic note that are critical to medical decision making have been carefully reviewed and included from a prior clinic note dated: January 11, 2024 (Dianne) Referring Provider: Kaley Francois Additional Clinicians involved in Nancy Sue's care: Dr. Justin Buckner, Dr. 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 Final path at resection was Stage I - no treatment response noted on pathology evaluation. Started FOLFOX on 08/29/2023. Cancer Staging Cancer of sigmoid (HCC) Staging form: Colon and Rectum, AJCC 8th Edition - Clinical stage from 06/29/2023: Stage IVB (cTX, cNX, cM1b) - Signed by Jsoe Wing MD on 07/20/2023 - Pathologic stage from 01/03/2024: Stage I (ypT2, pN0, cM0) - Signed by Jose Wing MD on 01/13/2024 LN's identified are borderline - may be Overstaged. Pulmonary GPS Biopsy of Right lung lesion - Carcinoid. PLAN: Add CEA to today's labs Triage to call with results of iron studies CT CAP with labs (with port) in 3 months RTC in 1 week after to review HPI: CASE HISTORY: Reverse Chronological Order 02/22/2024-02/24/2024 - Admitted for ileostomy closure 01/17/2024-01/19/2024 - Admitted at [facility] for skin irritation at stoma site 12/28/2023 - Laparoscopic converted to open low anterior resection, Splenic flexure mobilization, Diverting loop ileostomy, Flexible Sigmoidoscopy A. Hepatic artery lymph node, excision: - One lymph node, negative for malignancy (0/1). B. Sigmoid colon and proximal rectum, resection: - Residual invasive adenocarcinoma (see synoptic report). - One additional tubular adenoma. - Diverticular disease with associated focal active inflammation. - Sixteen lymph nodes, negative for malignancy (0/16). C. Distal donut, excision: - Segment of rectum with no diagnostic abnormality. 11/07/2023 - CT CAP: Chest: Streaky scarring/discoid atelectasis in the left upper lobe, increased since 08/13/23. Several subcentimeter nodular opacities measuring up to 8 mm, stable since 06/22/23. Findings compatible with previous granulomatous disease. A/P: Mild splenomegaly, increased in size since 06/22/23. Wqbo-ua-cuqrwilp abdominal lymphadenopathy, stable. Increased streaky reticulation of the pelvic fat may represent post therapy changes or edema. Previously noted thickening of the rectosigmoid colon wall is less conspicuous. Sigmoid colon diverticulosis without evidence of diverticulitis. Nonobstructing left renal stones. 08/29/2023-11/21/2023 - 5 cycles FOLFOX 08/22/2023 - TB-FNA Right lower Lobe: - Neoplastic cells present derived from low-grade neuroendocrine tumor 07/13/2023 - CT PET: Intense uptake along more than 7 cm of the sigmoid colon consistent with known primary, associated with mildly prominent with nndo-nb-kvhdxcmf FDG uptake in upper mesenteric and retroperitoneal [...] sigmoid colon 05/30/2023 - Colonoscopy Dr. Lee 3 polyps and recto-sigmoid mass - Invasive mod. Diff adenoca. 02/2023 (more content not included)...[facility]10-14-2024 Telephone encounter Note* Telephone Encounter - Luisa Salgado - 06/23/2024 8:39 AM EDT Spoke with patient. Pt is scheduled for labs and to see Dr Montalvo on 07/14. Pt requested this date. Luisa Deng [facility]10-14-[facility]24 Miscellaneous Notes* Telephone Encounter - Luisa Salgado - 06/23/2024 8:39 AM EDT Spoke with patient. Pt is scheduled for labs and to see Dr Montalvo on 07/14. Pt requested this date. Luisa Deng * Telephone Encounter - Penelope Moreno RN - 06/23/2024 8:06 AM EDT Clerical: Please schedule labs & f/u w/ Brenda. Thanks! Penelope Moreno, RN * Telephone Encounter - Penelope Moreno RN - 06/23/2024 8:06 AM EDT Images from the original note were not included. Kaley Francois MD Abhyankar, Vivek, MD; Penelope Moreno, MONET; P Rust Clerical Pool Great! Thanks! Previous Messages ----- Message ----- From: Jose Wing MD Sent: 06/21/2024 2:39 PM EDT To: Kaley Francois MD; Penelope Moreno, MONET; * Hi AJ - hope you're well! Thanks for the update - I agree - will get her back in and at least get labs for her. Discuss CT's for following NET. Best, Brenda. ----- Message ----- From: Kaley Francois MD Sent: 06/19/2024 10:00 AM EDT To: Jose Wing MD Hi Brenda, I saw Nancy today; doing great. Doing her surveillance 1 year c/scope soon. Not sure if you're planning on surveillance CTs on her, given that she was technically a stage I on final path. I advised her to reschedule her appt with you (she had cancelled the February). She will probably need CTs for her NET anyway right? Best, documented in this encounterSelect [facility]10-[facility]-2024 Telephone encounter Note * Telephone Encounter - Penelope Moreno RN - 06/23/2024 8:06 AM EDT Clerical: Please schedule labs & f/u w/ Brenda. Thanks! Penelope Moreno RN [facility] Work Phone: [phone] Telephone encounter Note* Telephone Encounter - Penelpoe Moreno RN - 06/23/2024 8:06 AM EDT Images from the original note were not included. Kaley Francois MD Abhyankar, Vivek, MD; Penelope Moreno, MONET; P Rust Clerical Pool Great! Thanks! Previous Messages ----- Message ----- From: Jose Wing MD Sent: 06/21/2024 2:39 PM EDT To: Kaley Francois MD; Penelope Moreno, MONET; * Hi AJ - hope you're well! Thanks for the update - I agree - will get her back in and at least get labs for her. Discuss CT's for following NET. Brenda Webb. ----- Message ----- From: Kaley Francois MD Sent: 06/19/2024 10:00 AM EDT To: MD Giuseppe Reyes, I saw Nancy today; doing great. Doing her surveillance 1 year c/scope soon. Not sure if you're planning on surveillance CTs on her, given that she was technically a stage I on final path. I advised her to reschedule her appt with you (she had cancelled the February). She will probably need CTs for her NET anyway right? Best, [facility] Nurse Note* Chica Morgan OCCA - 06/19/2024 9:00 AM EDT What is the reason for your visit today? 3 mo f/u, ostomy reversal Who is your referring physician? Are you having poor oral intake? NO Have you had unintentional weight loss of 15 lbs/7 Kg in the last 3-6 months? NO Bowels: regular with some diarrhea Wound: clean & dry Temperature: No Drains: No [facility] History of Present illness Narrative* Kaley Francois MD - 06/19/2024 9:00 AM EDT [facility] June 19, 2024 Nancy Sue 64 year old Brief History Nancy Sue is a 64 year old woman with 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 Pt had RLL nodule on CT chest which was biopsied, and consistent with low grade NET. She completed 5 cycles without change in RP LNs and decision made to proceed with surgery after TB discussion. She is now s/p laparoscopic converted to open LAR/DLI on 12/28/23 and laparoscopic incisional biopsy of hepatic artery lymph node by Dr. Mneezes, which was negative for metastatic cancer and likely reactive due to cirrhosis. Final path with ypT2N0 sigmoid cancer, s/p Ileostomy Closure on 02/22/2024. Oncology surveillance with Dr Alves- last seen 01/11/2024 Interval events Patient states that she is feeling well and has returned to her baseline with regards to her BM. She denies any abdominal pain. Her prior ostomy site is mildly itchy but does not bother her. She is tolerating a diet, and has returned to all of her ADLs. Abdominal surgery: hysterectomy followed by bilateral subbilateral salpingo-oophorectomy PAST MEDICAL HISTORY Diagnosis Date Anemia High cholesterol HTN (hypertension) Hypothyroidism PAST SURGICAL HISTORY Procedure Laterality Date ;TOTAL HYSTERECTMY TUBE(S) &/OR OVARY BRONCHOSCOPY W/PLACEMENT TRACHEAL STENT COLECTOMY PARTIAL W/ANASTOMOSIS 12/28/2023 laparoscopic converted to open COLONOSCOPY SCREENING LIPOMA (MEDIUM) Current Outpatient Medications Medication Sig Dispense Refill ibuprofen (MOTRIN) 200 mg tablet Take 2 tablets by mouth every 6 hours. iron glycinate,polysacch cmplx (IRON BIS GLYCIN-FE P-SAC CMPLX ORAL) Take 20 mg by mouth once daily. collagen, hydrolysate, bovine, (COLLAGEN, HYDR, BOVINE,, BULK,) 100 % powd Take 1 Dose by mouth once daily. levothyroxine (SYNTHROID) 50 mcg tablet Take 50 mcg by mouth once daily. Pramoxine-Hydrocortisone (ANALPRAM-HC) 1-1 % rectal cream 1 g by RECTAL route two times a day as needed (rectal discomfort). omega 6-wxr-sir-fish oil 120-180-500 mg cap Take 500 mg by mouth once daily. gabapentin (NEURONTIN) 300 mg capsule Take 1 capsule by mouth every 8 hours for 10 doses. 10 capsule 0 loperamide (IMODIUM) 2 mg cap(s) Take 2 capsules by mouth three times a day before meals. 90 capsule 1 lactobacillus rhamnosus (CULTURELLE) 10 billion cell capsule Take 1 capsule by mouth once daily. 30capsule 0 iv contrast (will be provided with radiology test) CT Chest ABD/PEL-Inject, intravenously, once for1 dose.No IV access, insert saline lock prior to the beginning of sedation, infusion, injection of imaging exam. Discontinue saline lock post exam. If Pt. has a central line or IVAD, may access for administration according to line specific nursing protocol. Once exam is complete flush line and de-access according to line specific nursing protocol in the CT contrast administration guidelines link.1 Each 0 enteric contrast (will be provided with radiology test) For CT CHESTABD/PEL W IVCON Routine order Administer, As Directed One Time Only, via Oral, Rectal, both Oral and Rectal, Enteric Tube, Stoma orIndwelling Catheter, Enteric Contrast as designated per enteric contrast guidelines 1 Each 0 Ascorbic Fkqq-Umcijmmlm-Fuw (EMERGEN-C) 1,000 mg pwep Take 1 Packet by mouth once daily. ondansetron (ZOFRAN) 8 mg tablet Take 1 tablet by mouth every 8 hours as needed for nausea/vomiting. (Patient not taking: Reported on 06/19/2024) 90 tablet 1 prochlorperazine (COMPAZINE) 10 mg tablet Take 1 tablet by mouth every 6 hours as needed. (Patient not taking: Reported on 06/19/2024) 100 tablet 1 No current facility-administered medications for this visit. ALLERGIES Allergen Reactions Ctsmqek-Ugo-Wpm Red* Other: See Comments, Unknown, Myalgia myalgias FAMILY HISTORY Problem Relation Age of Onset Stroke Mother COPD Father Heart Father Colon Cancer Brother Social History Tobacco Use Smoking status: Never Smokeless tobacco: Never Vaping Use Vaping status: Never Used Substance Use Topics Alcohol use: Yes Comment: 2 drinks a couple times a month Drug use: Never Physical Exam: BP 151/75 (BP Site: Left Arm, BP Position: Sitting, BP Cuff Size: Regular Adult) Pulse 75 Temp 36.1 C (97 F) SpO2 98% General Appearance: Well appearing, alert, in no acute distress, well-hydrated, well nourished. Abdomen: soft, non tender, non distended. Prior ostomy site, with mildly excoriated scar but intact. Laparotomy incision well healed The sensitive examination was discussed with the Patient or Patient's Authorized Aerosol Supervisor. Asapplicable, any other physician, advance practice provider, medical student, or other health professional student that will be observing or involved in the sensitive examination for educational or training purposes was discussed with the Patient or Authorized Aerosol Supervisor. The Patient or Authorized Aerosol Supervisor has agreed to proceed with the sensitive examination. (Sensitive examination includes inspection and/or palpation of the breasts, pelvis, prostate and anorectal regions) Imaging: CT Chest 11/07/2023 IMPRESSION: 1. Streaky scarring/discoid atelectasis in the left upper lobe, increased since 08/13/23. 2. Several subcentimeter nodular opacities measuring up to 8 mm, stable since 06/22/23. 3. Findings compatible with previous granulomatous disease. CT A/P 11/07/2023 IMPRESSION: 1. Mild splenomegaly, increased in size since 06/22/23. 2. Lgvn-wo-vxqvuoge abdominal lymphadenopathy, stable. 3. Increased streaky reticulation of the pelvic fat may represent post therapy changes or edema. 4. Previously noted thickening of the rectosigmoid colon wall is less conspicuous. 5. Sigmoid colon diverticulosis without evidence of diverticulitis. 6. Nonobstructing left renal stones. CT Chest 08/13/2023 IMPRESSION: Stable to minimally increase in size of a 8 mm indeterminant right lower lobe nodule, previously 7 mm, which was not FDG avid on prior PET/CT. Additional sub-6 mm pulmonary nodules are unchanged. Continued attention on follow-up in 3 to 6 months is suggested. No thoracic lymphadenopathy. PET/CT 07/13 IMPRESSION: 1. HEAD and NECK: No evidence of focal uptake to suggest FDG avid neoplastic process.. 2. CHEST: No evidence of focal uptake to suggest FDG avid neoplastic process.. 0.7 cm right lower lobe lung nodule, below PET resolution, for follow-up. 3. ABDOMEN/PELVIS: Intense uptake along more than 7 cm of the sigmoid colon consistent with known primary, associated with mildly prominent with utqo-wb-kvdhtwwk FDG uptake in upper mesenteric and retroperitoneal lymphadenopathy. 4. EXTREMITIES/SKELETON: No evidence of focal uptake to suggest FDG avid neoplastic process.. CT Abdomen 06/22/2023 1. Mild upper abdominal mesenteric and retroperitoneal adenopathy, as above. Correlation with follow-up examinations is recommended given the patient's history. 2. Mild, diffuse hepatic steatosis is noted. 3. Mild splenomegaly, as detailed above. 4. A small amount of cholelithiasis is appreciated. CT pelvis 07/06/2023 1. Irregular circumferential distal sigmoid colonic wall thickening, extending over a length of 8 cm, compatible with known sigmoid colonic neoplasm. 2. No metastatic disease within the pelvis. CT Chest 06/22/2023 1. Right lower lobe subcentimeter pulmonary nodules, larger measuring 0.7 cm. Correlation with follow-up examinations is recommended, as the possibility of metastases is not excluded. 2. No substantial intrathoracic adenopathy is appreciated. Recent CEA 1.2 Surgical Path SPECIMEN Procedure Low anterior resection TUMOR Tumor Site Sigmoid colon Histologic Type Adenocarcinoma Histologic Grade G2, moderately differentiated Tumor Size Greatest dimension (Centimeters): 1.4 cm Tumor Extent Invades into muscularis propria Macroscopic Tumor Perforation Not identified Lymphovascular Invasion Not identified Perineural Invasion Not identified Treatment Effect Absent, with extensive residual cancer and no evident tumor regression (poor or noresponse, score 3) MARGINS Margin Status for Invasive Carcinoma All margins negative for invasive carcinoma Distance from Invasive Carcinoma to Radial (Circumferential) Margin 51 mm Distance from Invasive Carcinoma to Distal Margin 43 mm Margin Status for Non-Invasive Tumor All margins negative for high-grade dysplasia / intramucosal carcinoma and low-grade dysplasia REGIONAL LYMPH NODES Regional Lymph Node Status All regional lymph nodes negative for tumor Number of Lymph Nodes Examined 16 Tumor Deposits Not identified PATHOLOGIC STAGE CLASSIFICATION (pTNM, AJCC 8th Edition) Reporting of pT, pN, and (when applicable) pM categories is based on information available to the pathologist at the time the report is issued. As per the AJCC (Chapter 1, 8th Ed.) it is the managingphysician s responsibility to establish the final pathologic stage based upon all pertinent information, including but potentially not limited to this pathology report. TNM Descriptors y (post-treatment) pT Category pT2 pN Category pN0 . Colonoscopy 05/30/23 - Dr. 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 Pt had RLL nodule on CT chest which was biopsied, and consistent with low grade NET. She completed 5 cycles without change in RP LNs and decision made to proceed with surgery after TB discussion. She is now s/p laparoscopic converted to open LAR/DLI on 12/28/23 and laparoscopic incisional biopsy of hepatic artery lymph node by Dr. Menezes, which was negative for metastatic cancer and likely reactive due to cirrhosis. Final path with ypT2N0 sigmoid cancer, now s/p Ileostomy Closure on 02/22/2024. Patient is overall doing well and having minimal complaints. She is due for her 1 yr C scope and will schedule. Given the initial clinical stage was discrepant with final surgical path, will defer need for surveillance CTs to med/onc. (No imaging typically needed for stage I per NCCN guideline) Medical Decision Making: Data Reviewed: Tests & Documents Reviewed/ordered: Review of prior notes from last clinic note Review of prior operative reports Review of Pathology Review of Imaging: CT Abdomen, CT Pelvis, CT Chest, PET Scan Review of Labs: CEA Review of Procedures / Tests: Colonoscopy I have independently interpreted: CT Abdomen, CT Pelvis I have discussed Nancy Sue's treatment plan and/or results with patient. Risk of morbidity, mortality and/or complications of treatment plan: lane Francois MD Colorectal Surgery documented in [facility] encounter[facility] NoteHNO ID: [id number] Author: KALEY FRANCOIS MD Service: ? 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 Pt had RLL nodule on CT chest which was biopsied, and consistent with low grade NET. She completed 5 cycles without change in RP LNs and decision made to proceed with surgery after TB discussion. She is now s/p laparoscopic converted to open LAR/DLI on 12/28/23 and laparoscopic incisional biopsy of hepatic artery lymph node by Dr. Menezes, which was negative for metastatic cancer and likely reactive due to cirrhosis. Final path with ypT2N0 sigmoid cancer, s/p Ileostomy Closure on 02/22/2024. Oncology surveillance with Dr Alves- last seen 01/11/2024 Interval events Patient states that she is feeling well and has returned to her baseline with regards to her BM. She denies any abdominal pain. Her prior ostomy site is mildly itchy but does not bother her. She is tolerating a diet, and has returned to all of her ADLs. Abdominal surgery: hysterectomy followed by bilateral subbilateral salpingo-oophorectomy PAST MEDICAL HISTORY Diagnosis Date Anemia High cholesterol HTN (hypertension) Hypothyroidism PAST SURGICAL HISTORY Procedure Laterality Date ;TOTAL HYSTERECTMY TUBE(S) AND/OR OVARY BRONCHOSCOPY W/PLACEMENT TRACHEAL STENT COLECTOMY PARTIAL W/ANASTOMOSIS 12/28/2023 laparoscopic converted to open COLONOSCOPY SCREENING LIPOMA (MEDIUM) Current Outpatient Medications Medication Sig Dispense Refill ibuprofen (MOTRIN) 200 mg tablet Take 2 tablets by mouth every 6 hours. iron glycinate,polysacch cmplx (IRON BIS GLYCIN-FE P-SAC CMPLX ORAL) Take 20 mg by mouth once daily. collagen, hydrolysate, bovine, (COLLAGEN, HYDR, BOVINE,, BULK,) 100 % powd Take 1 Dose by mouth once daily. levothyroxine (SYNTHROID) 50 mcg tablet Take 50 mcg by mouth once daily. Pramoxine-Hydrocortisone (ANALPRAM-HC) 1-1 % rectal cream 1 g by RECTAL route two times a day as needed (rectal discomfort). omega 5-gpz-yft-fish oil 120-180-500 mg cap Take 500 mg by mouth once daily. gabapentin (NEURONTIN) 300 mg capsule Take 1 capsule by mouth every 8 hours for 10 doses. 10 capsule 0 loperamide (IMODIUM) 2 mg cap(s) Take 2 capsules by mouth three times a day before meals. 90 capsule 1 lactobacillus rhamnosus (CULTURELLE) 10 billion cell capsule Take 1 capsule by mouth once daily. 30 capsule 0 iv contrast (will be provided with radiology [...] contrast administration guidelines link. 1 Each 0 enteric contrast (will be provided with radiology test) For CT CHESTABD/PEL W IVCON Routine order Administer, As Directed One Time Only, via Oral, Rectal, both Oral and Rectal, Enteric Tube, Stoma or Indwelling Catheter, Enteric Contrast as designated per enteric contrast guidelines 1 Each 0 Ascorbic Qrsw-Whuhwrnul-Xes (EMERGEN-C) 1,000 mg pwep Take 1 Packet by mouth once daily. ondansetron (ZOFRAN) 8 mg tablet Take 1 tablet by mouth every 8 hours as needed for nausea/vomiting. (Patient not taking: Reported on 06/19/2024) 90 tablet 1 prochlorperazine (COMPAZINE) 10 mg tablet Take 1 tablet by mouth every 6 hours as needed. (Patient not taking: Reported on 06/19/2024) 100 tablet 1 No current facility-administered medications for this visit. ALLERGIES Allergen Reactions Vkmkgwn-Wnt-Mgv Red* Other: See Comments, Unknown, Myalgia myalgias FAMILY HISTORY Problem Relation Age of Onset Stroke Mother COPD Father Heart Father Colon Cancer Brother Social History Tobacco Use Smoking status: Never Smokeless tobacco: Never Vaping Use Vaping status: Never Used Substance Use Topics Alcohol use: Yes Comment: 2 drinks a couple times a month Drug use: Never Physical Exam: BP 151/75 (BP Site: Left Arm, BP Position: Sitting, BP Cuff Size: Regular Adult) Pulse 75 Temp 36.1 ?C (97 ?F) SpO2 98% General Appearance: Well appearing, alert, in no acute distress, well-hydrated, well nourished. Abdomen: soft, non tender, non distended. Prior ostomy site, with mildly excoriated scar but intact. Laparotomy incision well healed The sensitive examination was discussed with the Patient or Patient's Authorized Aerosol Supervisor. As applicable, any other physician, advance practice provider, medical student, or other health professional student that will be observing (more content not included)...[facility]10-10-2024 Nurse Note* Chica Morgan OCCA - 06/19/2024 9:00 AM EDT What is the reason for your visit today? 3 mo f/u, ostomy reversal Who is your referring physician? Are you having poor oral intake? NO Have you had unintentional weight loss of 15 lbs/7 Kg in the last 3-6 months? NO Bowels: regular with some diarrhea Wound: clean & dry Temperature: No Drains: No documented in this encounterSelect [facility]07-19-2024 Telephone encounter Note * Telephone Encounter - Pauline Jean Baptiste - 03/28/2024 9:33 AM EDT Patient advised to call in 1 week from last visit and give an update. She states she is doing better. Wound on stomach is healing great. CB# [phone] [facility]07-19-[facility] Miscellaneous Notes* Telephone Encounter - Pauline Jean Baptiste - 03/28/2024 9:33 AM EDT Patient advised to call in 1 week from last visit and give an update. She states she is doing better. Wound on stomach is healing great. CB# [phone] documented in this encounterSelect [facility]07-11-[facility] Nurse Note* Chica Morgan OCCA - 03/20/2024 12:22 PM EDT What is the reason for your visit today? Post op, ostomy reversal Who is your referring physician? Are you having poor oral intake? NO, but believes she needs to drink more water Have you had unintentional weight loss of 15 lbs/7 Kg in the last 3-6 months? NO Bowels: regular Wound: clean & dr, some seepage Temperature: No Drains: No [facility] Nurse Note* Chica Morgan OCCA - 03/20/2024 12:22 PM EDT What is the reason for your visit today? Post op, ostomy reversal Who is your referring physician? Are you having poor oral intake? NO, but believes she needs to drink more water Have you had unintentional weight loss of 15 lbs/7 Kg in the last 3-6 months? NO Bowels: regular Wound: clean & dr, some seepage Temperature: No Drains: No documented in this encounterKathy [place] [id number] History of Present illness Narrative* Mesha Ortega, ROBERTA.WILDFIRE PREVENTION SPECIALIST - 03/20/2024 12:20 PM EDT COLORECTAL SURGERY March 20, 2024 Nancy Sue 64 year old This consult was requested by Dr. Francois and my final recommendations will be communicated to [facility] care provider by way of the shared medical record for internal providers or letter via the [employer] [employer] for external providers. Chief Complaint: post-op visit History of Present Illness: Nancy Sue is a 64 year old female s/p an Ileostomy Closure, Flexible sigmoidoscopy on 02/22/[address] Francois. She presents today for her post-op visit. Feeling very well since her dischargehome. She denies any new or worsening pain, she is no longer taking pain medication narcotics. Denies fevers and chills but reports the past several days she has had upper respiratory and cold symptoms after taking a trip. She is not nauseated and she is eating and drinking well. Denies pain or bloating with mealtime, bowel movements are soft brown, nonbloody, approximately 4 times a day and small-volume. She has not needed to take any Imodium since discharge home. We discussed lifting and activ ity as well as diet advancement in detail. She asks if it is safe to go see a epic cadence analyst for some concerning skin spots and she was encouraged to make this appointment. Only other concern she mentions is her ileostomy closure wound continues to drain a scant amount, the dry gauze she places adheres to the wound, and she notices a small piece of stitch poking through. FINAL DIAGNOSIS Ileostomy, excision: - Enterocutaneous tissue with focal nonspecific inflammatory changes, foreign body giant cell reaction, and fibrous adhesion, consistent with ostomy site. PAST MEDICAL HISTORY Diagnosis Date Anemia High cholesterol HTN (hypertension) Hypothyroidism PAST SURGICAL HISTORY Procedure Laterality Date ;TOTAL HYSTERECTMY TUBE(S) &/OR OVARY BRONCHOSCOPY W/PLACEMENT TRACHEAL STENT COLECTOMY PARTIAL W/ANASTOMOSIS 12/28/2023 laparoscopic converted to open COLONOSCOPY SCREENING LIPOMA (MEDIUM) Current Outpatient Medications Medication Sig Dispense Refill gabapentin (NEURONTIN) 300 mg capsule Take 1 capsule by mouth every 8 hours for 10 doses. 10 capsule 0 loperamide (IMODIUM) 2 mg cap(s) Take 2 capsules by mouth three times a day before meals. 90 capsule 1 lactobacillus rhamnosus (CULTURELLE) 10 billion cell capsule Take 1 capsule by mouth once daily. 30capsule 0 ibuprofen (MOTRIN) 200 mg tablet Take 2 tablets by mouth every 6 hours. iv contrast (will be provided with radiology test) CT Chest ABD/PEL-Inject, intravenously, once for1 dose.No IV access, insert saline lock prior to the beginning of sedation, infusion, injection of imaging exam. Discontinue saline lock post exam. If Pt. has a central line or IVAD, may access for administration according to line specific nursing protocol. Once exam is complete flush line and de-access according to line specific nursing protocol in the CT contrast administration guidelines link.1 Each 0 enteric contrast (will be provided with radiology test) For CT CHESTABD/PEL W IVCON Routine order Administer, As Directed One Time Only, via Oral, Rectal, both Oral and Rectal, Enteric Tube, Stoma orIndwelling Catheter, Enteric Contrast as designated per enteric contrast guidelines 1 Each 0 Ascorbic Bryc-Dajyralpy-Sdg (EMERGEN-C) 1,000 mg pwep Take 1 Packet [...] 6 hours as needed. 100 tablet 1 levothyroxine (SYNTHROID) 50 mcg tablet Take 50 mcg by mouth once daily. Pramoxine-Hydrocortisone (ANALPRAM-HC) 1-1 % rectal cream 1 g by RECTAL route two times a day as needed (rectal discomfort). omega 4-ytx-lya-fish oil 120-180-500 mg cap Take 500 mg by mouth once daily. No current facility-administered medications for this visit. ALLERGIES Allergen Reactions Dauswpu-Njf-Tda Red* Other: See Comments, Unknown, Myalgia myalgias FAMILY HISTORY Problem Relation Age of Onset Stroke Mother COPD Father Heart Father Colon Cancer Brother Social History Tobacco Use Smoking status: Never Smokeless tobacco: Never Vaping Use Vaping Use: Never used Substance Use Topics Alcohol use: Yes Comment: 2 drinks a couple times a month Drug use: Never Physical Exam: BP 151/69 (BP Site: Right Arm, BP Position: Sitting, BP Cuff Size: Regular Adult) Pulse 77 Temp36.3 C (97.3 F) SpO2 98% General Appearance: Well appearing, alert, in no acute distress, well-hydrated, well nourished. Abdomen: soft, non-distended, non-tender. Ileostomy closure site healing, shallow, red/yellow moistwound bed, pursestring suture exposed and pulling through, snipped and removed. Small amount of erythema at inferior border of wound, blanching erythema, non-tender, no induration or warmth. Assessment Assessment and Plan: Nancy Sue is a 64 year old female s/p an Ileostomy Closure, Flexible sigmoidoscopy on 02/22/2024. -doing well post-op, expected recovery course. -she will call in 1 week with an update of the ileostomy closure wound appearance. -OK to slowly advance diet as tolerated. -continue lifting and activity restrictions for 4-6 weeks post-op. -continue probiotics for 1 month post-op. -further follow up with Dr. Francois in 3 months, scheduled for the patient today. Medical Decision Making: Data Reviewed: Tests & Documents Reviewed/ordered: Review of prior notes from hospitalization Review of prior operative reports Review of Pathology I have independently interpreted: n/a I have discussed Nancy uSe's treatment plan and/or results with the patient, Dr. Berger Risk of morbidity, mortality and/or complications of treatment plan: lane Ortega APRN.CNP Colorectal Surgery documented in this encounterSelect [facility]06-[facility] Telephone encounter Note * Telephone Encounter - Ally Conte RN - 03/07/2024 1:34 PM EDT Call returned to patient. No answer. Left detailed message and return call back number to office. LM with reminder of post op appt 03/20. [facility] Miscellaneous Notes* Telephone Encounter - Ally Conte RN - 03/07/2024 1:34 PM EDT Call returned to patient. No answer. Left detailed message and return call back number to office. LM with reminder of post op appt 03/20. * Telephone Encounter - Pauline Jean Baptiste - 03/07/2024 12:33 PM EDT Patient calling asking to speak to nurse. She has some questions regarding swelling in abdominal area and a tingling/pain in the R leg. She had surgery on 02/21 # [id number] documented in this encounterSelect [facility]06-28-2024 Telephone encounter Note * Telephone Encounter - Pauline Jean Baptiste - 03/07/2024 12:33 PM EDT Patient calling asking to speak to nurse. She has some questions regarding swelling in abdominal area and a tingling/pain in the R leg. She had surgery on 02/21 # [phone] [facility] Telephone encounter Note* Telephone Encounter - Ally Conte RN - 02/29/2024 2:41 PM EDT Call returned to [facility] Ivana HEALY. Advised order is correct, DSD to ostomy site. No need to pack. She reports no other needs with discharge instructions and is appreciative of the call back. [facility] Miscellaneous Notes* Telephone Encounter - Ally Conte RN - 02/29/2024 2:41 PM EDT Call returned to [facility] Ivana HEALY. Advised order is correct, DSD to ostomy site. No need to pack. She reports no other needs with discharge instructions and is appreciative of the call back. * Telephone Encounter - Pauline Jean Baptiste - 02/29/2024 2:36 PM EDT Home health nurse calling to get order for wound care. She had reversal and states patient told hershe is just to cover and not pack the hole. She would like orders stating this. CB# [phone] documented in this encounterSelect [facility]06-21-2024 Telephone encounter Note * Telephone Encounter - Pauline Jean Baptiste - 02/29/2024 2:36 PM EDT Home health nurse calling to get order for wound care. She had reversal and states patient told hershe is just to cover and not pack the hole. She would like orders stating this. CB# [phone] [facility]06-[facility]24 NoteHNO ID: [id number] Author: VILMA MAYA RN Service: Care Management Author Type: Registered Nurse Type: Care Mgt Progress Note Filed: 02/24/2024 10:37 Note Text: CARE MANAGEMENT DISCHARGE NOTE SERVICE DATE: February 24, 2024 SERVICE TIME: 10:27am Admission Date: 02/22/2024 LOS: 2 days Discharge Arrangement Referral sent to [facility] to resume for nursing Services Arranged N Provider Name: [facility] Phone: Caregiver Assessment Caregiver is ready, willing and able to meet the patient's needs as recommended by the inter-professional team: Yes Name of Caregiver: [facility] Transportation Arrangements Transportation Arrangements: Car Date of Trip: 02/24/24 Destination: home residence Handoff Communication: Handoff to: Primary Care Physician Primary Care Physician Name/Phone: Justin Buckner M., via derwent Discharge Information Row Name Admission (Current) from 02/22/[address] [facility] Agency [facility] - referral sent Plan is for patient to be medically cleared for discharge today to home, referral sent to [facility] for resumption of care, and message left for the staff x 2, patients to transport home. SIGNATURE: Vilma Maya RN PATIENT NAME: Nancy Sue DATE: February 24, 2024 TIME: 10:27 AM CONTACT #: [phone] [facility] HospitalPkoylvtj06-53-0613 NoteHNO ID: [id number] Author: VILMA MAYA RN Service: Care Management Author Type: Registered Nurse Type: Care Mgt Progress Note Filed: 02/24/2024 10:15 Note Text: CARE MANAGEMENT PROGRESS NOTE SERVICE DATE: 02/24/2024 SERVICE TIME: 10:15am LOS: 2 days IMM Follow Up Copy Given: Yes Copy given to:: Patient Method: In Person SIGNATURE: Vilma Maya RN PATIENT NAME: Nancy Sue DATE: February 24, 2024 TIME: 10:15 AM PAGER/CONTACT #: [phone] [facility] HospitalCfzqhkor92-82-2136 NoteHNO ID: [id number] Author: VILMA MAYA RN Service: Care Management Author Type: Registered Nurse Type: Care Mgt Initial Assessment Filed: 02/24/2024 10:14 Note Text: CARE MANAGEMENT: ASSESSMENT AND DISCHARGE PLAN SERVICE DATE: February 24, 2024 SERVICE TIME: 10:10am PCP: Justin Buckner MD Primary Contact: Extended Emergency Contact Information Primary Emergency Contact: Wendy Sue [facility] Mobile Relation: Spouse Admission Status: Inpatient Insurance Provider: MEDICARE A AND B Discharge Planning requested by: per protocol Potential Transition Plans Home Care Advance Directives Current Advance Directive: Health Care Power of Grant Specialist;Living Will In Chart: No 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 Attempted to Assist with AD Completion: Yes Action: Education Provided (Patient stated has POA paperwork in place) Advance Care Planning HCPOA paperwok on file within [facility] and verified to be current as of date/time of this note: no Legal Next of Kin Hierarchy per [place] Revised Code: Healthcare Power of Grant Specialist - stated has paperwork at home Legal Spouse - Majority of Adult Children (consensus if possible) 2 daughters Majority of Adult Siblings (consensus if possible) 6 siblings Nearest Blood Relative Vilma Maya RN February 24, 2024 Current Living Arrangements and Support Lives with: Spouse/significant other Type of Residence: Private Residence (House) Does the patient have to climb stairs at home?: Yes Support: Family members, Spouse/significant other How do you manage to accomplish the following: Independent: Ambulation;Bathe/Shower;Dress;Meals/Meal Prep;Going to the bathroom;Medication Management;Transportation to appointments/community Current Services/Equipment Current Post-Acute Service(s): None Discharge Planning Patient Goal(s): Be able to go home, General wellness [place] of Choice Explained: [place] of Choice Given: Yes Level of Care Discussed: Home Care Are you interested in bedside delivery of your medications? No Discharge Planning Participant(s): Patient Patient/Family Comments: Caregiver Assessment: Caregiver is ready, willing and able to meet the patient's needs as recommended by the inter-professional team: Yes Name of Caregiver: [facility] Transport at Discharge: Transportation Arrangements: Car Date of Trip: 02/24/24 Destination: home residence Needs Prior to Discharge: Needs Prior to Discharge: Ready for Discharge;Other: See Comment (Awaiting response from [facility]) Post-Acute Discharge Plan: S/p iliostomy closure, plan is to discharge home today, patient is , retired, independent, patient would like to resume [facility], referral sent, , at bedside, to transport home. SIGNATURE: Vilma Maya RN PATIENT NAME: Nancy Sue DATE: February 24, 2024 TIME: 10:10 AM CONTACT #: [phone] [id number] NoteHNO ID: [id number] Author: WENDY MCDONALD MD Service: Colorectal Author Type: Fellow Type: Progress Notes Filed: 02/24/2024 08:47 Note Text: COLORECTAL SURGERY PROGRESS NOTE Name: Nancy Sue SERVICE DATE: 02/24/2024 Subjective INTERVAL history: Feels well. Having bowel movements and passing flatus. No nausea/vomiting Objective PHYSICAL EXAM: BP 107/54 Pulse 61 Temp 36.6 ?C (97.9 ?F) (Oral) Resp 17 Ht 162.6 cm (5' 4 ) Wt 91.6 kg (202 lb) SpO2 95% BMI 34.67 kg/m? Intake/Output Summary (Last 24 hours) at 02/24/2024 0847 Last data filed at 02/24/2024 0436 Gross per 24 hour Intake 1195 ml Output 1000 ml Net 195 ml General: well appearing Abdomen soft appropriately tender. Stoma site healing well. Packing removed and dressing replaced. LABS: Recent Labs 02/24/24 0423 02/23/24 0418 WBC 3.85 6.23 HB 10.3* 11.0* HCT 31.1* 33.4* PLT 99* 126* NA 136 137 K 4.1 5.3* CHLOR 103 105 CO2 25 23 BUN 17 18 CREAT 1.02* 1.01* GLUC 99 119* CA 8.5 9.1 A/P: 64 year old female who is s/p loop ileostomy closure on 02/21. Recovering appropriately. GIS since yesterday. Having bowel function. Home today. Please contact [facility] Team pager for any questions [phone] during the daytime hours from 6a to 6p. Contact [phone] for nights and weekends Wendy Mcdonald MD Colorectal fellowSaint Anne'S HospitalTecvmivb40-21-2128 NoteHNO ID: [id number] Author: WENDY MCDONALD MD Service: Colorectal Author Type: Fellow Type: Progress Notes Filed: 02/23/2024 09:09 Note Text: COLORECTAL SURGERY PROGRESS NOTE Name: Nancy Sue SERVICE DATE: 02/23/2024 Subjective INTERVAL history: Feels well. Had a bowel movement. No flatus yet. No nausea/vomiting Objective PHYSICAL EXAM: BP 107/55 Pulse 66 Temp 36.8 ?C (98.2 ?F) (Oral) Resp 14 Ht 162.6 cm (5' 4 ) Wt 91.6 kg (202 lb) SpO2 93% BMI 34.67 kg/m? Intake/Output Summary (Last 24 hours) at 02/23/2024 0907 Last data filed at 02/23/2024 0538 Gross per 24 hour Intake 2600 ml Output 225 ml Net 2375 ml General: well appearing Abdomen soft appropriately tender LABS: Recent Labs 02/23/24 0418 WBC 6.23 HB 11.0* HCT 33.4* PLT 126* NA 137 K 5.3* CHLOR 105 CO2 23 BUN 18 CREAT 1.01* GLUC 119* CA 9.1 A/P: 64 year old female who is s/p loop ileostomy closure on 02/21. Recovering appropriately. Clears today. Possible GIS in the afternoon. Ambulate. Please contact [facility] Team pager for any questions [phone] during the daytime hours from 6a to 6p. Contact [phone] for nights and weekends Wendy Mcdonald MD Colorectal fellowSaint Anne'S HospitalLjewryfs54-95-0341 NoteHNO ID: [id number] Author: SAMIA BIRMINGHAM MD Service: General Surgery Author Type: Resident Type: Plan of Care Filed: 02/23/2024 01:44 Note Text: GENERAL SURGERY POST-OP CHECK Patient: Nancy Sue Date: February 23, 2024 Time: 1:44 AM POD 0 from Loop ileostomy closure SUBJECTIVE: Patient recovering well post-operatively Pain appropriately managed on current regimen. Patient reports no nausea, vomiting, dyspnea, chest pain, dizziness, reports no flatus Patient was lying in bed OBJECTIVE: BP 126/67 Pulse 93 Temp 36.4 ?C (97.5 ?F) (Oral) Resp 16 Ht 162.6 cm (5' 4 ) Wt 91.6 kg (202 lb) SpO2 96% BMI 34.67 kg/m? General: Resting comfortably in bed, awake, answering questions appropriately Cardiac: Regular rate and rhythm, radial pulses palpable bilaterally Resp: Symmetric chest rise, no use of accessory muscles of respiration, saturating well, lungs clear to auscultation bilaterally Abd: Soft, appropriately tender to palpation, non-distended, incisions clean, dry, and intact, dressing with minimal strikethrough Ext: Warm, well perfused, moving all four extremities spontaneously ASSESSMENT/PLAN: Patient is recovering well post-operatively Continue routine post-op care Samia Birmingham MDSaint Anne'S HospitalSbisvqxs86-50-1250 NoteHNO ID: [id number] Author: JOHNNA OHARA DO Service: Anesthesiology Author Type: Anesthesiologist Type: Anesthesia Procedure Notes Filed: 02/22/2024 16:43 Note Text: ANESTHESIOLOGY PROCEDURE NOTE Peripheral Nerve Block General Information Procedure Start Time/Medication Administration: 02/22/2024 4:07 PM Procedure End time: 02/22/2024 4:09 PM Patient location during procedure: OR Timeout Performed Pre-procedure: timeout performed Consent Obtained: Yes Patient identity confirmed: arm band, care application development team lead and patient sedated or unresponsive Reason for block: post-op pain management/at surgeon's request Staffing Anesthesiologist: Johnna Ohara DO Performed by: anesthesiologist Preparation Sterility Preparation: hand hygiene performed prior to procedure, surgical cap used, mask used, sterile drape used during line insertion, skin prep agent completely dried prior to procedure Site Prep: Chloraprep Pre-Procedure Neuro Exam Location: ABDOMEN Sensory: sensory deficit Motor: pre-existing condition Procedure Details Patient Position: supine Monitoring: Pulse OX, EKG and NIBP Block Type Trunk: TAP block and subcostal Approach: anterior Laterality: right Injection Technique: single-shot Ultrasound Guided: Yes Image in Chart: yes Needle Needle Type: echogenic and stimulating Needle Gauge: 21 G Needle Length: 100 mm Needle Localization: anatomical landmarks and ultrasound Assessment Injection assessment: negative aspiration, incremental injection and local visualized surrounding nerve on ultrasound Medications Administered bupivacaine liposome (PF) 1.3 % (13.3 mg/mL) injection (EXPAREL) - INFILTRATION 133 mg - 02/22/2024 4:07:00 PM bupivacaine (PF) 0.5 % (5 mg/mL) injection - peripheral nerve block 10 mL - 02/22/2024 4:07:00 PM SIGNATURE: Johnna Ohara DO PATIENT NAME: Nancy Sue DATE: February 22, 2024 TIME: 4:40 PM CSN: [id number] NoteHNO ID: [id number] Author: JOHNNA OHARA DO Service: Anesthesiology Author Type: Anesthesiologist Type: Anesthesia Procedure Notes Filed: 02/22/2024 16:39 Note Text: ANESTHESIOLOGY PROCEDURE NOTE Peripheral Nerve Block General Information Procedure Start Time/Medication Administration: 02/22/2024 4:05 PM Procedure End time: 02/22/2024 4:07 PM Patient location during procedure: OR Timeout Performed Pre-procedure: timeout performed Consent Obtained: Yes Patient identity confirmed: arm band, care application development team lead and patient sedated or unresponsive Reason for block: post-op pain management/at surgeon's request Staffing Anesthesiologist: Johnna Ohara DO Performed by: anesthesiologist Preparation Sterility Preparation: hand hygiene performed prior to procedure, surgical cap used, mask used, sterile drape used during line insertion, skin prep agent completely dried prior to procedure Site Prep: Chloraprep Pre-Procedure Neuro Exam Location: ABDOMEN Sensory: sensory deficit Motor: pre-existing condition Procedure Details Patient Position: supine Monitoring: Pulse OX, EKG and NIBP Block Type Trunk: TAP block Approach: anterior Laterality: right Injection Technique: single-shot Ultrasound Guided: Yes Image in Chart: yes Needle Needle Type: echogenic and stimulating Needle Gauge: 21 G Needle Length: 100 mm Needle Localization: anatomical landmarks and ultrasound Assessment Injection assessment: negative aspiration, incremental injection and local visualized surrounding nerve on ultrasound Medications Administered bupivacaine liposome (PF) 1.3 % (13.3 mg/mL) injection (EXPAREL) - INFILTRATION 133 mg - 02/22/2024 4:05:00 PM bupivacaine (PF) 0.5 % (5 mg/mL) injection - peripheral nerve block 10 mL - 02/22/2024 4:05:00 PM SIGNATURE: Johnna Ohara DO PATIENT NAME: Nancy Sue DATE: February 22, 2024 TIME: 4:38 PM CSN: [id number] NoteHNO ID: [id number] Author: KRISTAL DUARTE APRN.TUBE REBUILDER Service: Anesthesiology Author Type: Nurse Senior Information Security Engineer Type: Anesthesia Procedure Notes Filed: 02/22/2024 16:35 Note Text: ANESTHESIOLOGY PROCEDURE NOTE Airway General Information Procedure Start Time/Medication Administration: 02/22/2024 4:23 PM Procedure End Time: 02/22/2024 2:23 PM Patient location during procedure: OR Patient identity confirmed: patient Staffing Anesthesiologist: Yadira Dorado MD TUBE REBUILDER: Kristal Duarte APRN.TUBE REBUILDER Performed by: TUBE REBUILDER Indications and Patient Condition Indications for airway management: anesthesia Preoxygenated: yes anesthesia circuit Patient position: sniffing Method: asleep Cricoid Pressure: Yes Manual In-Line Stabilization: No Difficult Mask: No Final Airway Details Final airway type: endotracheal airway Final Endotracheal Airway: ETT Cuffed: yes Successful intubation technique: direct laryngoscopy Devices used: intubating stylet Blade: Margaret Blade size: #3 ETT size (mm): 7.5 Measured from: lips Measurement (cm): 22 Placement verified by: chest auscultation and capnometry Cormack-Lehane Classification: grade IIb - view of arytenoids or posterior of glottis only Number of attempts at approach: 1 Failed airway: no Unrecognized esophageal intubation: no Airway not difficult SIGNATURE: Kristal Duarte APRN.CRNA PATIENT NAME: Nancy Sue DATE: February 22, 2024 TIME: 4:34 PM CSN: [id number] Telephone encounter Note * Telephone Encounter - Elen Velez RN - 02/07/2024 11:50 AM EDT Returned call. Told her I checked with Dr. Francois and she is fine to take imodium and Metamucil the day before surgery. She should take her thyroid medication the morning of surgery with a small sip of water. [facility]05-30-2024 Miscellaneous Notes* Telephone Encounter - Elen Velez RN - 02/07/2024 11:50 AM EDT Returned call. Told her I checked with Dr. Francois and she is fine to take imodium and Metamucil the day before surgery. She should take her thyroid medication the morning of surgery with a small sip of water. * Telephone Encounter - Pauline Jean Baptiste - 02/07/2024 11:24 AM EDT Patient has surgery scheduled for 02/21. Asking if she is able to continue to take thyroid meds, Imodium and Metamucil up until surgery date # [phone] documented in this encounter[facility] Telephone encounter Note * Telephone Encounter - Pauline Jean Baptiste - 02/07/2024 11:24 AM EDT Patient has surgery scheduled for 02/21. Asking if she is able to continue to take thyroid meds, Imodium and Metamucil up until surgery date CB# [phone] [facility]05-28-2024 NoteHNO ID: [id number] Author: LIN GARCIA RT(Nathalia) Service: Radiology Author Type: Aluminum Siding Applicator Type: Progress Notes Filed: 02/05/2024 10:20 Note Text: Radiology Service Progress Note PATIENT NAME: Nancy Sue DATE OF SERVICE: February 05, 2024 TIME: 10:19 AM PATIENT IDENTITY VERIFICATION COMPLETED USING TWO (2) IDENTIFIERS: Name and Date of confirmed by patient verbally and Name and Date of confirmed by identification band. FALL SCREENING: Has the patient had 2 falls in the last year or 1 fall with injury or currently using an Ambulatory Assistive Device (Walker, Cane, Wheelchair, Crutches, etc.)? No PATIENT GENDER DATA: Female. status: : No status: N/A PATIENT RELEVANT IMPLANT DATA REVIEWED: Not Applicable PATIENT PRESENTS WITH AN IMPLANTABLE OR ATTACHED HEEL SCOURER: No RADIOLOGY DEPARTMENT: General X-ray: Exam(s) Completed: GI/ Procedure(s): Barium enema with water soluable contrast PERIPHERAL IV DATA: Not applicable SIGNED BY: RT Daphne(Nathalia) February 05, 2024 10:19 AM[facility] of Present illness Narrative* Lin Garcia RT(R) - 02/05/2024 9:00 AM EDT Radiology Service Progress Note PATIENT NAME: Nancy Sue DATE OF SERVICE: February 05, 2024 TIME: 10:19 AM PATIENT IDENTITY VERIFICATION COMPLETED USING TWO (2) IDENTIFIERS: Name and Date of confirmedby patient verbally and Name and Date of confirmed by identification band. FALL SCREENING: Has the patient had 2 falls in the last year or 1 fall with injury or currently using an Ambulatory Assistive Device (Walker, Cane, Wheelchair, Crutches, etc.)? No PATIENT GENDER DATA: Female. status: : No status: N/A PATIENT RELEVANT IMPLANT DATA REVIEWED: Not Applicable PATIENT PRESENTS WITH AN IMPLANTABLE OR ATTACHED HEEL SCOURER: No RADIOLOGY DEPARTMENT: General X-ray: Exam(s) Completed: GI/ Procedure(s): Barium enema with watersoluable contrast PERIPHERAL IV DATA: Not applicable SIGNED BY: RT Daphne(R) February 05, 2024 10:19 AM documented in this encounter[facility] History and physical note * Danelle Otero PA-C - 01/30/2024 10:00 AM EDT HISTORY AND PHYSICAL EXAMINATION SERVICE DATE: 01/30/2024 SERVICE TIME: 9:56 AM PRIMARY CARE PHYSICIAN: Justin Buckner MD Assessment/Plan 1. Pre-op evaluation Surgery scheduled on 02/22/2024. 2. Hypertension, unspecified type BP 124/80. No current Rx medications. Denies any CP, dizziness, double vision, or SYKES PCP following, stable. Last 14 BP Last 14 Encounter BP Readings: Date: BP: 01/30/2024 124/80 01/24/2024 127/69 01/17/2024 123/73 01/17/2024 116/69 01/11/2024 136/83 12/28/2023 112/68 12/19/2023 142/73 11/27/2023 127/70 11/23/2023 133/76 11/21/2023 162/81 11/13/2023 148/86 10/26/2023 116/84 10/24/2023 175/76 10/12/2023 98/63 3. Hyperlipidemia, unspecified hyperlipidemia type No current Rx medication, managing with diet. PCP following. 4. Malignant neoplasm of colon, unspecified part of colon (HCC) 5. Ileostomy present (HCC) S/p laparoscopic converted to open partial colectomy with low pelvic anastomosis with colostomy on 12/28/23 for T2N0 sigmoid cancer. She completed 5 treatments of neoadjuvant chemotherapy. Follows with heme/onc Dr. Jose Wing, last seen 01/11/24. See HPI, having above surgery. 6. PONV (postoperative nausea and vomiting) History of nausea with previous colonoscopies. No issues with most recent surgeries. 7. Hypothyroidism, unspecified type Stable on Levothyroxine (Synthroid). PCP following. 8. Other iron deficiency anemia No longer taking oral iron. CBC from 01/19/24 demonstrates H/H of 12.0/35.0. Asymptomatic, stable. Will get repeat CBC today. 9. Obesity (BMI 30-39.9) Body mass index is 34.81 kg/m . 10. Hyponatremia BMP from 01/19/24 demonstrates Na of 128. Appears to be stable since her colon surgery in December. Will get repeat CMP today. ANESTHESIA FINDINGS: Intubation History: No history of difficult intubation Significant Anesthesia Considerations: Postop nausea/vomiting; no issues with most recent surgeries Airway Exam: General: Normal appearance Mallampati Score is CLASS II ULBT: Class I - Lower incisors can bite the upper lip above the dawna line Neck: Normal appearance and function, Distance from hyoid to mentum during neck extension is at least 3 finger breaths Mouth: Normal tongue size and Mouth opening greater than 2 finger breaths Dentition: Intact and Caps/crowns Airway History: No abnormal airway history STOP BANG Score: Criteria: Hypertension Age over 50 (63 year old) Score = 2 REASON FOR VISIT: Nancy Sue is a 63 year old female who is scheduled for CLOSURE ILEOSTOMY SIGMOIDOSCOPY FLEXIBLE at the request of Dr. Kaley Francois for consultation. My final recommendation will be communicated back to the requesting physician by way of shared medical record or letter. The patient has the following: ACTIVE PROBLEM LIST Rectal Cancer (Hcc) Cancer of Sigmoid (Hcc) Hld (Hyperlipidemia) Htn (Hypertension) Morbid Obesity (Hcc) Hypothyroidism Ponv (Postoperative Nausea and Vomiting) Iron Deficiency Anemia Colon Cancer (Hcc) Ileostomy Present (Hcc) Postoperative Pain Skin Breakdown Irritant Contact Dermatitis Associated With Fecal Stoma Subjective CHIEF COMPLAINT: Attention to ileostomy (HCC) [Z43.2] Malignant neoplasm of sigmoid colon (HCC) [C18.7] HPI: Patient is a 63 year old female presenting to pre-anesthesia consultation. Patient recently underwent laparoscopic converted to open partial colectomy with low anastomosis and ileostomy. She also completed 5 rounds of neoadjuvant therapy. PAST MEDICAL HISTORY Diagnosis Date Anemia High [...] couple times a month Drug use: Never MEDICATIONS: Prior to Admission medications as of 01/24/24 1337 Medication Sig Last Dose Taking loperamide (IMODIUM) 2 mg cap(s) Take 2 capsules by mouth three times a day before meals. lactobacillus rhamnosus (CULTURELLE) 10 billion cell capsule Take 1 capsule by mouth once daily. acetaminophen (TYLENOL EXTRA STRENGTH) 500 mg tablet Take 2 tablets by mouth every 6 hours as needed for pain. ibuprofen (MOTRIN) 200 mg tablet Take 2 tablets by mouth every 6 hours. iv contrast (will be provided with radiology test) CT Chest ABD/PEL-Inject, intravenously, once for1 dose.No IV access, insert saline lock prior [...] both Oral and Rectal, Enteric Tube, Stoma orIndwelling Catheter, Enteric Contrast as designated per enteric contrast guidelines Ascorbic Yzoy-Craxrrapb-Hwj (EMERGEN-C) 1,000 mg pwep Take 1 Packet [...] Take 1 mg by mouth once daily. levothyroxine (SYNTHROID) 50 mcg tablet Take 50 mcg by mouth once daily. Pramoxine-Hydrocortisone (ANALPRAM-HC) 1-1 % rectal cream 1 g by RECTAL route two times a day as needed (rectal discomfort). omega 4-npj-ixy-fish oil 120-180-500 mg cap Take 500 mg by mouth once daily. No medication comments found. CURRENT ALLERGIES: ALLERGIES Allergen Reactions Uetoatl-Umj-Nph Red* Other: See Comments, Unknown, Myalgia myalgias COVID-19 Immunization Status Overdue - Covid-19 Vaccine () Overdue since 08/04/2023 06/09/2023 Imm Admin: COVID-19 vaccine, age 12+ yr, season ([employer]) 06/07/2022 Imm Admin: COVID-19 vaccine, age 12+ yr, bivalent ([employer]) 12/24/2021 Imm Admin: COVID-19 original vaccine, age 12+ yr, monovalent ([employer] [place] [employer]) Only the first 3 history entries have been loaded, but more history exists. REVIEW OF SYSTEMS: PAIN ASSESSMENT: General: No weight loss, malaise or fevers. Neuro: No history of TIA's, stroke, CREDIT COUNSELOR tumor, impaired sensorium, hemiplegia, paraplegia or quadraplegia. No neurological symptoms or problems. Respiratory: No history of current cough or dyspnea, or pneumonia in the past 6 weeks. No history of respiratory/pulmonary symptoms or problems. Cardiovascular: +HTN, HLD Negative for Recent LA, Angina, Arrhythmia, CAD, Chest Pain, CHF, DVT/PE GI: +PONV, ileostomy See HPI : No history of dysuria, frequency or incontinence,, stones or chronic kidney disease Endocrine: +hypothyroidism Denies any history of other endocrine symptoms/problems. Hematology: +[place], hyponatremia Denies any history of other hematological symptoms/problems Oncology: +hx colon cancer s/p partial colon resection 12/2023, neoadjuvant chemotherapy Psych: No history of psychiatric symptoms or problems. Musculoskeletal: Negative for joint pain or swelling, back pain or muscle pain. Skin: Negative for lesions, rash and itching. Objective PHYSICAL EXAM: VITALS: BP 124/80 Pulse 64 Temp (Src) 98.2 (Oral) Resp 16 Ht 5' 4 (1.63m) Wt 202 lb 13.2 oz (92.0kg) SpO2 99% BMI 34.80 kg/(m^2). General: Alert and oriented, Obese Skin: Normal color, no rash, no lesions. HEENT: EOM, pupils equal, round and reactive. Cardiovascular: Normal S1 & S2, no rubs, murmurs or gallops. No JVD. Pulse regular. Lungs: Normal breath sounds, no wheezes or crackles. Abdomen: Soft, non-tender, no rigidity. Functioning ileostomy present on right side of abdomen withpink stoma. Extremities: No deformity, no edema or tenderness, no joint swelling or clubbing. Neurological: Normal cognition and motor skills. Pulses: Carotid and radial pulses normal +2. Diagnostic tests reviewed for today's visit: Lab Value Units Date High Low HB 12.0 g/dL 01/19/2024 15.5 11.5 HCT 35.0 % 01/19/2024 46.0 36.0 WBC 4.23 k/uL 01/19/2024 11.00 3.70 PLT 158 k/uL 01/19/2024 400 150 NA 128 mmol/L 01/19/2024 144 136 K 4.6 mmol/L 01/19/2024 5.1 3.7 GLUC 106 mg/dL 01/19/2024 99 74 BUN 21 mg/dL 01/19/2024 21 7 CREAT 0.90 mg/dL 01/19/2024 0.96 0.58 PTSEC No results within date range. INR No results within date range. APTT No results within date range. ALT 48 U/L 01/11/2024 38 7 AST 49 U/L 01/11/2024 35 13 TBILI 0.4 mg/dL 01/11/2024 1.3 0.2 TSH No results within date range. Lab Value Units Date High Low HCGQT No results within date range. UHCG No results within date range. HCG, BODY* No results within date range. Lab Value Units Date High Low ABORHD No results within date range. ABSCREEN No results within date range. No results found for: HBA1C Recent Results (from the past 8760 hour(s)) ECG COMPLETE Collection Time: 08/13/23 8:09 AM Result Value Ventricular Rate 67 Atrial Rate 67 P-R Interval 140 QRS Duration 106 QT Interval 420 QTC Calculation (Bazett) 444 Calculated P Trinidad 36 Calculated R Trinidad -66 Calculated T Trinidad 13 Impression Sinus rhythm Inferior infarct, old Abnormal ECG Confirmed by MD TRACE, KVNG ([id number]) on 08/21/2023 1:22:11 PM METS: Walks 2-3x a week Climb a flight of stairs or walk up a hill (5.50 METs) Patient denies any chest pain or undue shortness of breath with the above physical activity. PLAN This patient is optimally prepared for surgery pending LABS. CONSULTS: Patient does not require consults for optimization at this time. The Following Tests/Procedures Have Been Initiated: No orders of the defined types were placed in this encounter. , EKG not indicated per [facility] protocol Labs reviewed from 01/19/24. CBC, CMP ordered by surgeon- to be completed today. Planned Anesthetic: Per anesthesia choice Instructions Given to Patient: Instructions located in the after visit summary. Patient given verbal and written preop instructions and voices comprehension and compliance. SIGNATURE: Danelle Otero PA-C PATIENT NAME: Nancy Sue DATE: 01/30/2024 TIME: 11:39 AM [facility]05-22-2024 History and physical note* Danelle Otero PA-C - 01/30/2024 10:00 AM EDT HISTORY AND PHYSICAL EXAMINATION SERVICE DATE: 01/30/2024 SERVICE TIME: 9:56 AM PRIMARY CARE PHYSICIAN: Justin Buckner MD Assessment/Plan 1. Pre-op evaluation Surgery scheduled on 02/22/2024. 2. Hypertension, unspecified type BP 124/80. No current Rx medications. Denies any CP, dizziness, double vision, or SYKES PCP following, stable. Last 14 BP Last 14 Encounter BP Readings: Date: BP: 01/30/2024 124/80 01/24/2024 127/69 01/17/2024 123/73 01/17/2024 116/69 01/11/2024 136/83 12/28/2023 112/68 12/19/2023 142/73 11/27/2023 127/70 11/23/2023 133/76 11/21/2023 162/81 11/13/2023 148/86 10/26/2023 116/84 10/24/2023 175/76 10/12/2023 98/63 3. Hyperlipidemia, unspecified hyperlipidemia type No current Rx medication, managing with diet. PCP following. 4. Malignant neoplasm of colon, unspecified part of colon (HCC) 5. Ileostomy present (HCC) S/p laparoscopic converted to open partial colectomy with low pelvic anastomosis with colostomy on 12/28/23 for T2N0 sigmoid cancer. She completed 5 treatments of neoadjuvant chemotherapy. Follows with heme/onc Dr. Jose Wing, last seen 01/11/24. See HPI, having above surgery. 6. PONV (postoperative nausea and vomiting) History of nausea with previous colonoscopies. No issues with most recent surgeries. 7. Hypothyroidism, unspecified type Stable on Levothyroxine (Synthroid). PCP following. 8. Other iron deficiency anemia No longer taking oral iron. CBC from 01/19/24 demonstrates H/H of 12.0/35.0. Asymptomatic, stable. Will get repeat CBC today. 9. Obesity (BMI 30-39.9) Body mass index is 34.81 kg/m . 10. Hyponatremia BMP from 01/19/24 demonstrates Na of 128. Appears to be stable since her colon surgery in December. Will get repeat CMP today. ANESTHESIA FINDINGS: Intubation History: No history of difficult intubation Significant Anesthesia Considerations: Postop nausea/vomiting; no issues with most recent surgeries Airway Exam: General: Normal appearance Mallampati Score is CLASS II ULBT: Class I - Lower incisors can bite the upper lip above the dawna line Neck: Normal appearance and function, Distance from hyoid to mentum during neck extension is at least 3 finger breaths Mouth: Normal tongue size and Mouth opening greater than 2 finger breaths Dentition: Intact and Caps/crowns Airway History: No abnormal airway history STOP BANG Score: Criteria: Hypertension Age over 50 (63 year old) Score = 2 REASON FOR VISIT: Nancy Sue is a 63 year old female who is scheduled for CLOSURE ILEOSTOMY SIGMOIDOSCOPY FLEXIBLE at the request of Dr. Kaley Francois for consultation. My final recommendation will be communicated back to the requesting physician by way of shared medical record or letter. The patient has the following: ACTIVE PROBLEM LIST Rectal Cancer (Hcc) Cancer of Sigmoid (Hcc) Hld (Hyperlipidemia) Htn (Hypertension) Morbid Obesity (Hcc) Hypothyroidism Ponv (Postoperative Nausea and Vomiting) Iron Deficiency Anemia Colon Cancer (Hcc) Ileostomy Present (Hcc) Postoperative Pain Skin Breakdown Irritant Contact Dermatitis Associated With Fecal Stoma Subjective CHIEF COMPLAINT: Attention to ileostomy (HCC) [Z43.2] Malignant neoplasm of sigmoid colon (HCC) [C18.7] HPI: Patient is a 63 year old female presenting to pre-anesthesia consultation. Patient recently underwent laparoscopic converted to open partial colectomy with low anastomosis and ileostomy. She also completed 5 rounds of neoadjuvant therapy. PAST MEDICAL HISTORY Diagnosis Date Anemia High [...] couple times a month Drug use: Never MEDICATIONS: Prior to Admission medications as of 01/24/24 1337 Medication Sig Last Dose Taking loperamide (IMODIUM) 2 mg cap(s) Take 2 capsules by mouth three times a day before meals. lactobacillus rhamnosus (CULTURELLE) 10 billion cell capsule Take 1 capsule by mouth once daily. acetaminophen (TYLENOL EXTRA STRENGTH) 500 mg tablet Take 2 tablets by mouth every 6 hours as needed for pain. ibuprofen (MOTRIN) 200 mg tablet Take 2 tablets by mouth every 6 hours. iv contrast (will be provided with radiology test) CT Chest ABD/PEL-Inject, intravenously, once for1 dose.No IV access, insert saline lock prior [...] both Oral and Rectal, Enteric Tube, Stoma orIndwelling Catheter, Enteric Contrast as designated per enteric contrast guidelines Ascorbic Fooo-Vzshhwbxs-Sxp (EMERGEN-C) 1,000 mg pwep Take 1 Packet [...] Take 1 mg by mouth once daily. levothyroxine (SYNTHROID) 50 mcg tablet Take 50 mcg by mouth once daily. Pramoxine-Hydrocortisone (ANALPRAM-HC) 1-1 % rectal cream 1 g by RECTAL route two times a day as needed (rectal discomfort). omega 7-gyf-rsf-fish oil 120-180-500 mg cap Take 500 mg by mouth once daily. No medication comments found. CURRENT ALLERGIES: ALLERGIES Allergen Reactions Iurnpzh-Ahg-Blo Red* Other: See Comments, Unknown, Myalgia myalgias COVID-19 Immunization Status Overdue - Covid-19 Vaccine ( season) Overdue since 08/04/2023 06/09/2023 Imm Admin: COVID-19 vaccine, age 12+ yr, season ([employer]) 06/07/2022 Imm Admin: COVID-19 vaccine, age 12+ yr, bivalent ([employer]) 12/24/2021 Imm Admin: COVID-19 original vaccine, age 12+ yr, monovalent ([employer]) Only the first 3 history entries have been loaded, but more history exists. REVIEW OF SYSTEMS: PAIN ASSESSMENT: General: No weight loss, malaise or fevers. Neuro: No history of TIA's, stroke, CREDIT COUNSELOR tumor, impaired sensorium, hemiplegia, paraplegia or quadraplegia. No neurological symptoms or problems. Respiratory: No history of current cough or dyspnea, or pneumonia in the past 6 weeks. No history of respiratory/pulmonary symptoms or problems. Cardiovascular: +HTN, HLD Negative for Recent LA, Angina, Arrhythmia, CAD, Chest Pain, CHF, DVT/PE GI: +PONV, ileostomy See HPI : No history of dysuria, frequency or incontinence,, stones or chronic kidney disease Endocrine: +hypothyroidism Denies any history of other endocrine symptoms/problems. Hematology: +[place], hyponatremia Denies any history of other hematological symptoms/problems Oncology: +hx colon cancer s/p partial colon resection 12/2023, neoadjuvant chemotherapy Psych: No history of psychiatric symptoms or problems. Musculoskeletal: Negative for joint pain or swelling, back pain or muscle pain. Skin: Negative for lesions, rash and itching. Objective PHYSICAL EXAM: VITALS: BP 124/80 Pulse 64 Temp (Src) 98.2 (Oral) Resp 16 Ht 5' 4 (1.63m) Wt 202 lb 13.2 oz (92.0kg) SpO2 99% BMI 34.80 kg/(m^2). General: Alert and oriented, Obese Skin: Normal color, no rash, no lesions. HEENT: EOM, pupils equal, round and reactive. Cardiovascular: Normal S1 & S2, no rubs, murmurs or gallops. No JVD. Pulse regular. Lungs: Normal breath sounds, no wheezes or crackles. Abdomen: Soft, non-tender, no rigidity. Functioning ileostomy present on right side of abdomen withpink stoma. Extremities: No deformity, no edema or tenderness, no joint swelling or clubbing. Neurological: Normal cognition and motor skills. Pulses: Carotid and radial pulses normal +2. Diagnostic tests reviewed for today's visit: Lab Value Units Date High Low HB 12.0 g/dL 01/19/2024 15.5 11.5 HCT 35.0 % 01/19/2024 46.0 36.0 WBC 4.23 k/uL 01/19/2024 11.00 3.70 PLT 158 k/uL 01/19/2024 400 150 NA 128 mmol/L 01/19/2024 144 136 K 4.6 mmol/L 01/19/2024 5.1 3.7 GLUC 106 mg/dL 01/19/2024 99 74 BUN 21 mg/dL 01/19/2024 21 7 CREAT 0.90 mg/dL 01/19/2024 0.96 0.58 PTSEC No results within date range. INR No results within date range. APTT No results within date range. ALT 48 U/L 01/11/2024 38 7 AST 49 U/L 01/11/2024 35 13 TBILI 0.4 mg/dL 01/11/2024 1.3 0.2 TSH No results within date range. Lab Value Units Date High Low HCGQT No results within date range. UHCG No results within date range. HCG, BODY* No results within date range. Lab Value Units Date High Low ABORHD No results within date range. ABSCREEN No results within date range. No results found for: HBA1C Recent Results (from the past 8760 hour(s)) ECG COMPLETE Collection Time: 08/13/23 8:09 AM Result Value Ventricular Rate 67 Atrial Rate 67 P-R Interval 140 QRS Duration 106 QT Interval 420 QTC Calculation (Bazett) 444 Calculated P Trinidad 36 Calculated R Trinidad -66 Calculated T Trinidad 13 Impression Sinus rhythm Inferior infarct, old Abnormal ECG Confirmed by MD TRACE, KVNG ([id number]) on 08/21/2023 1:22:11 PM METS: Walks 2-3x a week Climb a flight of stairs or walk up a hill (5.50 METs) Patient denies any chest pain or undue shortness of breath with the above physical activity. PLAN This patient is optimally prepared for surgery pending LABS. CONSULTS: Patient does not require consults for optimization at this time. The Following Tests/Procedures Have Been Initiated: No orders of the defined types were placed in this encounter. , EKG not indicated per [facility] protocol Labs reviewed from 01/19/24. CBC, CMP ordered by surgeon- to be completed today. Planned Anesthetic: Per anesthesia choice Instructions Given to Patient: Instructions located in the after visit summary. Patient given verbal and written preop instructions and voices comprehension and compliance. SIGNATURE: Danelle Otero PA-C PATIENT NAME: Nancy Sue DATE: 01/30/2024 TIME: 11:39 AM documented in this encounterSelect [facility] Instructions* Patient Instructions* Danelle Otero PA-C - 01/29/2024 12:22 PM EDT PATIENT PREOPERATIVE INSTRUCTIONS Kaley Francois MD has scheduled you for your procedure at this surgery center: [facility]: [phone] --[id number] [address]. Please check in on the1st floor at registration desk 6. Your surgeon ordered blood work which should be completed today from 01/24/24. Arrival Time for Surgery: - The Surgery [...] soon as possible and regret any inconvenience. Please read below carefully for your personalized instructions. Dietary Restrictions: - You may have 12 ounces of clear liquids (water, clear juices such as apple juice or gatorade, carbonated beverages, clear tea, black coffee, jello) until 2 hours before scheduled arrival at facility. - Follow bowel prep instructions: clear liquids need to be stopped 2 hours prior to schedule arrival at facility Medications: Unless instructed differently below, stay on all of your medications until your surgery. Approved medications to take the morning of surgery with a sip of water: Levothyroxine (Synthroid) Is Patient Diabetic:No If you start any new medications after today's visit, please contact the surgeon's office. Blood Thinning Medications: - Stop NSAIDS (Ibuprofen, Advil, Aleve, Motrin, Celebrex, Mobic, etc.) 7 days before surgery, as directed by your surgeon. - Stop Aspirin 7 days before surgery, as directed by your surgeon. - Stop Vitamin E, ALL multi-vitamins, herbals and dietary supplements 14 days before surgery. - You may take [...] Procedures: - YOU MUST HAVE A RESPONSIBLE TRUCK DRIVING INSTRUCTOR TAKE YOU HOME. A PATTERN ASSEMBLER OR CQ DEVELOPER CANNOT BE MADE A RESPONSIBLE TRUCK DRIVING INSTRUCTOR. - We recommend that a responsible person stays with you overnight to take care of you. - You cannot stay in a hotel alone after outpatient surgery. You will not be permitted to have yoursurgery, if you do not have someone to take care of you. If you already have an Advance Directive, please fax a copy to [phone] or email to for it to be added to your chart. If you do not have an Advance Directive, you can find the appropriate form and more information at [email or web address]. We recommend that youcomplete the Advance Directive form found on the website and bring it with you the day of your surgery. It can be witnessed and scanned into your chart that day. Danelle Otero PA-C documented in this encounterSelect Medical [facility] Nurse Note* Elen Velez RN - 01/24/2024 2:14 PM EDT Provided phone number to schedule GGE. Scheduled ileostomy reversal and flex sig for 02/22/24. Gave blue folder for education. No bowel prep needed. Labs ordered. [facility] Nurse Note* Elen Velez RN - 01/24/2024 2:14 PM EDT Provided phone number to schedule GGE. Scheduled ileostomy reversal and flex sig for 02/22/24. Gave blue folder for education. No bowel prep needed. Labs ordered. * Chica Morgan OCCA - 01/24/2024 1:37 PM EDT What is the reason for your visit today? Peristomal dermatitis Who is your referring physician? Are you having poor oral intake? NO Have you had unintentional weight loss of 15 lbs/7 Kg in the last 3-6 months? 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 Pt had RLL nodule on CT chest which was biopsied, and consistent with low grade NET. She completed 5 cycles without change in RP LNs and decision made to proceed with surgery after TB discussion. She is now s/p laparoscopic converted to open LAR/DLI on 12/28/23 and laparoscopic incisional biopsy of hepatic artery lymph node by Dr. Menezes, which was negative for metastatic cancer and likely reactive due to cirrhosis. Final path with ypT2N0 sigmoid cancer Interval events: She was admitted to [facility] on 01/17/24 due to peristomal skin breakdown from constant stoma leak. Pouching much improved and no further leaking. Skin is improving. Doing much better. Tolerating diet. Stoma output appropriate in consistency. Maintaining weight andincreasing physical activity. PAST MEDICAL HISTORY Diagnosis Date Anemia High cholesterol HTN (hypertension) Hypothyroidism PAST SURGICAL HISTORY Procedure Laterality Date ;TOTAL HYSTERECTMY TUBE(S) &/OR OVARY BRONCHOSCOPY W/PLACEMENT TRACHEAL STENT COLONOSCOPY SCREENING LIPOMA (MEDIUM) Current Outpatient Medications Medication Sig Dispense Refill loperamide (IMODIUM) 2 mg cap(s) Take 2 capsules by mouth three times a day before meals. 90 capsule 1 enoxaparin (LOVENOX) 40 mg/0.4 mL Inject 0.4 mL subcutaneously once daily for 21 days. 8.4 mL 0 lactobacillus rhamnosus (CULTURELLE) 10 billion cell capsule Take 1 capsule by mouth once daily. 30capsule 0 acetaminophen (TYLENOL EXTRA STRENGTH) 500 mg tablet Take 2 tablets by mouth every 6 hours as needed for pain. ibuprofen (MOTRIN) 200 mg tablet Take 2 tablets by mouth every 6 hours. iv contrast (will be provided with radiology test) CT Chest ABD/PEL-Inject, intravenously, once for1 dose.No IV access, insert saline lock prior to the beginning of sedation, infusion, injection of imaging exam. Discontinue saline lock post exam. If Pt. has a central line or IVAD, may access for administration according to line specific nursing protocol. Once exam is complete flush line and de-access according to line specific nursing protocol in the CT contrast administration guidelines link.1 Each 0 enteric contrast (will be provided with radiology test) For CT CHESTABD/PEL W IVCON Routine order Administer, As Directed One Time Only, via Oral, Rectal, both Oral and Rectal, Enteric Tube, Stoma orIndwelling Catheter, Enteric Contrast as designated per enteric contrast guidelines 1 Each 0 Ascorbic Duzx-Ebzkeknzb-Uzj (EMERGEN-C) 1,000 mg pwep Take 1 Packet [...] Take 1 mg by mouth once daily. levothyroxine (SYNTHROID) 50 mcg tablet Take 50 mcg by mouth once daily. Pramoxine-Hydrocortisone (ANALPRAM-HC) 1-1 % rectal cream 1 g by RECTAL route two times a day as needed (rectal discomfort). omega 8-qxa-amq-fish oil 120-180-500 mg cap Take 500 mg by mouth once daily. No current facility-administered medications for this visit. ALLERGIES Allergen Reactions Gcufnvs-Jgn-Ckb Red* Other: See Comments, Unknown, Myalgia myalgias FAMILY HISTORY Problem Relation Age of Onset Stroke Mother COPD Father Heart Father Colon Cancer Brother Social History Tobacco Use Smoking status: Never Smokeless tobacco: Never Vaping Use Vaping Use: Never used Substance Use Topics Alcohol use: Yes Comment: 2 drinks a couple times a month Drug use: Never Physical Exam: BP 127/69 (BP Site: Right Arm, BP Position: Sitting, BP Cuff Size: Regular Adult) Pulse 87 Temp36.1 C (97 F) SpO2 99% General Appearance: Well appearing, alert, in no acute distress, well-hydrated, well nourished. Abdomen: soft, non distended, non tender. Incision site healing well. Stoma site improving with healing skin. Stoma pink and productive Imaging: CT Chest 11/07/2023 IMPRESSION: 1. Streaky scarring/discoid atelectasis in the left upper lobe, increased since 08/13/23. 2. Several subcentimeter nodular opacities measuring up to 8 mm, stable since 06/22/23. 3. Findings compatible with previous granulomatous disease. CT A/P 11/07/2023 IMPRESSION: 1. Mild splenomegaly, increased in size since 06/22/23. 2. Sjac-dt-frhnlmhm abdominal lymphadenopathy, stable. 3. Increased streaky reticulation of the pelvic fat may represent post therapy changes or edema. 4. Previously noted thickening of the rectosigmoid colon wall is less conspicuous. 5. Sigmoid colon diverticulosis without evidence of diverticulitis. 6. Nonobstructing left renal stones. CT Chest 08/13/2023 IMPRESSION: Stable to minimally increase in size of a 8 mm indeterminant right lower lobe nodule, previously 7 mm, which was not FDG avid on prior PET/CT. Additional sub-6 mm pulmonary nodules are unchanged. Continued attention on follow-up in 3 to 6 months is suggested. No thoracic lymphadenopathy. PET/CT 07/13 IMPRESSION: 1. HEAD and NECK: No evidence of focal uptake to suggest FDG avid neoplastic process.. 2. CHEST: No evidence of focal uptake to suggest FDG avid neoplastic process.. 0.7 cm right lower lobe lung nodule, below PET resolution, for follow-up. 3. ABDOMEN/PELVIS: Intense uptake along more than 7 cm of the sigmoid colon consistent with known primary, associated with mildly prominent with nazy-kx-tsbergjj FDG uptake in upper mesenteric and retroperitoneal lymphadenopathy. 4. EXTREMITIES/SKELETON: No evidence of focal uptake to suggest FDG avid neoplastic process.. CT Abdomen 06/22/2023 1. Mild upper abdominal mesenteric and retroperitoneal adenopathy, as above. Correlation with follow-up examinations is recommended given the patient's history. 2. Mild, diffuse hepatic steatosis is noted. 3. Mild splenomegaly, as detailed above. 4. A small amount of cholelithiasis is appreciated. CT pelvis 07/06/2023 1. Irregular circumferential distal sigmoid colonic wall thickening, extending over a length of 8 cm, compatible with known sigmoid colonic neoplasm. 2. No metastatic disease within the pelvis. CT Chest 06/22/2023 1. Right lower lobe subcentimeter pulmonary nodules, larger measuring 0.7 cm. Correlation with follow-up examinations is recommended, as the possibility of metastases is not excluded. 2. No substantial intrathoracic adenopathy is appreciated. Recent CEA 1.[address] SPECIMEN Procedure Low anterior resection TUMOR Tumor Site Sigmoid colon Histologic Type Adenocarcinoma Histologic Grade G2, moderately differentiated Tumor Size Greatest dimension (Centimeters): 1.4 cm Tumor Extent Invades into muscularis propria Macroscopic Tumor Perforation Not identified Lymphovascular Invasion Not identified Perineural Invasion Not identified Treatment Effect Absent, with extensive residual cancer and no evident tumor regression (poor or noresponse, score 3) MARGINS Margin Status for Invasive Carcinoma All margins negative for invasive carcinoma Distance from Invasive Carcinoma to Radial (Circumferential) Margin 51 mm Distance from Invasive Carcinoma to Distal Margin 43 mm Margin Status for Non-Invasive Tumor All margins negative for high-grade dysplasia / intramucosal carcinoma and low-grade dysplasia REGIONAL LYMPH NODES Regional Lymph Node Status All regional lymph nodes negative for tumor Number of Lymph Nodes Examined 16 Tumor Deposits Not identified PATHOLOGIC STAGE CLASSIFICATION (pTNM, AJCC 8th Edition) Reporting of pT, pN, and (when applicable) pM categories is based on information available to the pathologist at the time the report is issued. As per the AJCC (Chapter 1, 8th Ed.) it is the managingphysician s responsibility to establish the final pathologic stage based upon all pertinent information, including but potentially not limited to this pathology report. TNM Descriptors y (post-treatment) pT Category pT2 pN Category pN0 . 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 Pt had RLL nodule on CT chest which was biopsied, and consistent with low grade NET. She completed 5 cycles without change in RP LNs and decision made to proceed with surgery after TB discussion. She is now s/p laparoscopic converted to open LAR/DLI on 12/28/23 and laparoscopic incisional biopsy of hepatic artery lymph node by Dr. Menezes, which was negative for metastatic cancer and likely reactive due to cirrhosis. Final path with ypT2N0 sigmoid cancer - Reviewed surgical steps, recovery and R/B/A of DLI closure. Informed consent obtained. Will plan for flex sig at time of surgery. Will obtained GGE preop -No need for adjuvant chemo- previously presented TB Continue to improve physical activity Medical Decision Making: Data Reviewed: Tests & Documents Reviewed/ordered: Review of prior notes from last clinic note Review of prior operative reports Review of Pathology Review of Imaging: CT Abdomen, CT Pelvis Review of Procedures / Tests: Colonoscopy I have independently interpreted: CT Abdomen, CT Pelvis I have discussed Nancy Sue's treatment plan and/or results with patient and her . Risk of morbidity, mortality and/or complications of treatment plan: lane Francois MD Colorectal Surgery documented in this encounterSelect Medical [facility] Nurse Note* Chica Morgan OCCA - 01/24/2024 1:37 PM EDT What is the reason for your visit today? Peristomal dermatitis Who is your referring physician? Are you having poor oral intake? NO Have you had unintentional weight loss of 15 lbs/7 Kg in the last 3-6 months? NO Bowels: Wound: skin breakdown Temperature: No Drains: No [facility]05-11-2024 NoteHNO ID: [id number] Author: JHON ABDULLAHI RN Service: Care Management Author Type: Registered Nurse Type: Care Mgt Progress Note Filed: 01/22/2024 11:36 Note Text: 11:35 AM Pt dc 12/19 [facility] called to and requested DC summary AVS and stoma care notes to be sent . All documents were sent.[facility] [id number] NoteHNO ID: [id number] Author: ELIZA QUINTANILLA RN Service: Care Management Author Type: Registered Nurse Type: Care Mgt Progress Note Filed: 01/18/2024 14:59 Note Text: CARE MANAGEMENT UTILIZATION REVIEW COMMITTEE CODE 44 (Admission Status Discrepancy Review) Admission Date: 01/17/2024 Patient's Initial Order is: Inpatient Date Received: January 18, 2024 Date Reviewed: January 18, 2024 , the practitioner responsible for the care of the patient, was consulted and concurs with the determinination made by the UR committee. Under the authority of the Utilization Management Committee, the Physician Advisor, Dr. Diaz Bull, has reviewed the medical record of the above patient. The following recommendation has been made by the Physician Advisor, based upon the current available medical information as of the date of this determination. The patient is appropriate for: Observation Rationale for this decision: Lack of medical necessity for inpatient admission SIGNATURE: Eliza Quintanilla RN PATIENT NAME: Nancy Sue DATE: January 18, 2024 TIME: 2:58 PM Disclaimer: The information in this determination is to be used for utilization management purposes only. The information and recommendation is made pursuant to Medicare Hospital Conditions of Participation (442 CFR Part 482) and is neither a judgment nor an assessment with regard to the appropriateness or quality of the clinical care. Nothing in this document may be used to limit clinical services provided to the above named patient. This form should be used as one part of the process utilized to ensure compliance with [facility] policy regarding Inpatient Admission and Observation Services. The definitions of Inpatient and Observation used in making the determination above are those provided in Medicare Benefit Policy Manual Chapter 1, Section 1 and 10, Chapter 6, Section 20, and the Medicare Claims Processing Manual Chapter 1, Section 50.3 and Chapter 4, Section 290. This recommendation should be considered as only one factor in determining the patient's final level of service along with other pertinent documentation such as the treating physician's order as documented evidence of concurrence.[facility] [id number] NoteHNO ID: [id number] Author: JHON ABDULLAHI RN Service: Care Management Author Type: Registered Nurse Type: Care Mgt Initial Assessment Filed: 01/18/2024 12:46 Note Text: CARE MANAGEMENT: ASSESSMENT AND DISCHARGE PLAN SERVICE DATE: January 18, 2024 SERVICE TIME: 12:43 PM PCP: Justin Buckner MD Primary Contact: Extended Emergency Contact Information Primary Emergency Contact: Wendy Sue [facility] Mobile Relation: Spouse Admission Status: Inpatient Insurance Provider: MEDICARE A AND B Discharge Planning requested by: Per Department Practice Potential Transition Plans Home Care Advance Directives Current Advance Directive: None 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 Attempted to Assist with AD Completion: Yes Action: Education Provided Current Living Arrangements and Support Lives with: Spouse/significant other Type of Residence: Private Residence (House) Support: Spouse/significant other How do you manage to accomplish the following: Independent: Ambulation;Bathe/Shower;Dress;Meals/Meal Prep;Going to the bathroom;Medication Management Needs Assistance: Transportation to appointments/community Current Services/Equipment Current Post-Acute Service(s): Skilled Home Care Discharge Planning Patient Goal(s): Be able to go home, Heal wounds [place] of Choice Explained: [place] of Choice Given: Yes Level of Care Discussed: Home Care (AYDE) Are you interested in bedside delivery of your medications? No Discharge Planning Participant(s): Patient Patient/Family Comments: Caregiver Assessment: Caregiver is ready, willing and able to meet the patient's needs as recommended by the inter-professional team: Yes Name of Caregiver: maria isabele with [facility] Transport at Discharge: Transportation Arrangements: Car Needs Prior to Discharge: Needs Prior to Discharge: Wound Care Post-Acute Discharge Plan: 63 year old female with stage IV disease sigmoid adenocarcinoma s/p systemic chemotherapy who is now s/p laparoscopic converted to open low anterior resection, splenic flexure mobilization, incisional biopsy of hepatic artery lymph node, and diverting loop ileostomy on 12/28/2023 who presents for difficulty pouching stoma leading to peristomal skin breakdown. This CM met with the pt at the bedside for assessment. Pt is alert and oriented x3. She was dc to [facility] with [facility] 01/03 she presents with c/o ostomy leaking. difficulty pouching. A AYDE referrals with the [facility] f2f was sent. Pt lives with her . Anticipate Pt will arrange own transportation at [place], her can assist. CM remains available to assist if further skilled dc needs arise. SIGNATURE: Jhon Abdullahi RN PATIENT NAME: Nancy Sue DATE: January 18, 2024 TIME: 12:42 PM CONTACT #: [id number] NoteHNO ID: [id number] Author: SUSY MERIDA MD Service: Colorectal Author Type: Resident Type: Progress Notes Filed: 01/18/2024 08:49 Note Text: Attestation signed by Kaley Francois MD at 01/18/2024 9:42 PM I evaluated the patient and personally participated in the freed components. I agree with the resident's findings and plan as documented and have discussed the case and management of the patient's care with the resident. 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 Plan: - [facility] team to see today - Imodium 2mg TID - Regular diet - Monitor ostomy output Susy Merida MD General Surgery, PGY-2 Pager: [phone] SUBJECTIVE: No acute events since admission. Pain controlled. OBJECTIVE: BP 126/67 Pulse 74 Temp 36.8 ?C (98.2 ?F) (Oral) Resp 16 Ht 162.6 cm (5' 4 ) Wt 89.8 kg (198 lb) SpO2 96% BMI 33.99 kg/m? Body mass index is 33.99 kg/m?. GENERAL: Alert and oriented, no acute distress, cooperative. LUNGS: Non labored breathing ABDOMEN: soft, non tender, non distended, denuded and erythematous skin around stoma site. Stoma pink and patent with gold liquid output WOUND: clean, dry and intact Labs: CBC, Coags, BMP, Mg, Phos Recent Labs 01/18/24 0732 01/17/24 1641 WBC 3.43* 5.69 HB 11.6 13.6 HCT 33.4* 39.0 PLT 169 234 NA 131* 130* K -- 5.0 CHLOR 96* 93* CO2 23 20* BUN 22* 28* CREAT 0.95 1.22* GLUC 115* 117* CA 9.6 10.2 MG 2.1 -- Liver Function, Amylase, AND Lipase I/O past 24h: Intake/Output Summary (Last 24 hours) at 01/18/2024 0847 Last data filed at 01/18/2024 0530 Gross per 24 hour Intake 2000 ml Output 1250 ml Net 750 ml LDA: Lines, Drains, and Airways Line Duration Peripheral 01/17/242023 [facility] Short Left Antecubital 20 Gauge <1 day Drain Duration Colostomy 12/28/23 RUQ 20 days SURGERY/PROCEDURE: * Surgery not found *[facility] [id number] Nurse Note* Chica Morgan OCCA - 01/17/2024 2:21 PM EDT What is the reason for your visit today? Post op Who is your referring physician? Are you having poor oral intake? NO Have you had unintentional weight loss of 15 lbs/7 Kg in the last 3-6 months? NO Bowels: stoma Wound: redness and moisture around stoma site Temperature: No Drains: No [facility]05-09-2024 Nurse Note* Chica Morgan OCCA - 01/17/2024 2:21 PM EDT What is the reason for your visit today? Post op Who is your referring physician? Are you having poor oral intake? NO Have you had unintentional weight loss of 15 lbs/7 Kg in the last 3-6 months? NO Bowels: stoma Wound: redness and moisture around stoma site Temperature: No Drains: No documented in this [facility] History of Present illness Narrative* Mesha Ortega APRN.CNP - 01/17/2024 2:20 PM EDT COLORECTAL SURGERY January 17, 2024 Nancy Sue 63 year old This consult was requested by Dr. Francois and my final recommendations will be communicated to [facility] care provider by way of the shared medical record for internal providers or letter via the [place] Postal Service for external providers. Chief Complaint: post-op visit History of Present Illness: Nancy Sue is a 63 year old female s/p a Laparoscopic converted to open low anterior resection,Splenic flexure mobilization, Diverting loop ileostomy, Flexible Sigmoidoscopy on 12/28/[address] Francois. She presents today for her post-op visit with her . She has been struggling with ostomy care since she she was discharged home. Inpatient postop she was having difficulty maintaining a pouch even before discharge. She is unable to maintain an ostomy pouch for more than a couple hours. She has had several different home care nurses and has also been to a wound care clinic withoutany improvement in her symptoms. Over the past several weeks the peristomal skin breakdown, denuded weeping skin, and pain has worsened. Earlier this week she went to a wound clinic without a pouch on, the wound clinic was unable to help. She is unsure about all of the supplies that she has tried. The pouch that has been the most successful has been a convex Coloplast pouch with the entire external tape barrier cut away due to pain when it sits on her skin. Her effluent is thin and green/brown,she had been taking Imodium at discharge from the hospital but was told by another provider to stoptaking it because it was making her output more loose and liquidy. She has not had Imodium for several days, she reports the output is always loose and watery, but she feels less than 1 L/day (1 L/day is what she measures, unclear if she is able to measure what leaks out). She denies fevers and chills, she denies new or worsening pain in her abdomen, she is eating deniesdizziness and lightheadedness, states her urine is clear and yellow. Her only concern is her inability to maintain an ostomy pouch for more than a day.. FINAL DIAGNOSIS A. Hepatic artery lymph node, excision: - One lymph node, negative for malignancy (0/1). B. Sigmoid colon and proximal rectum, resection: - Residual invasive adenocarcinoma (see synoptic report). - One additional tubular adenoma. - Diverticular disease with associated focal active inflammation. - Sixteen lymph nodes, negative for malignancy (0/16). C. Distal donut, excision: - Segment of rectum with no diagnostic abnormality. PAST MEDICAL HISTORY Diagnosis Date Anemia High cholesterol HTN (hypertension) Hypothyroidism PAST SURGICAL HISTORY Procedure Laterality Date ;TOTAL HYSTERECTMY TUBE(S) &/OR OVARY BRONCHOSCOPY W/PLACEMENT TRACHEAL STENT COLONOSCOPY SCREENING LIPOMA (MEDIUM) Current Outpatient Medications Medication Sig Dispense Refill loperamide (IMODIUM) 2 mg cap(s) Take 1 capsule by mouth three times a day before meals. 90 capsule1 enoxaparin (LOVENOX) 40 mg/0.4 mL Inject 0.4 mL subcutaneously once daily for 21 days. 8.4 mL 0 ondansetron (ZOFRAN) 4 mg tablet Take 1 tablet by mouth every 8 hours as needed for nausea/vomitingfor up to 15 doses. 15 tablet 0 lactobacillus rhamnosus (CULTURELLE) 10 billion cell capsule Take 1 capsule by mouth once daily. 30capsule 0 acetaminophen (TYLENOL EXTRA STRENGTH) 500 mg tablet Take 2 tablets by mouth every 6 hours as needed for pain. ibuprofen (MOTRIN) 200 mg tablet Take 2 tablets by mouth every 6 hours. neomycin 500 mg tablet Take 2 tablets by mouth as directed. Take 2 tablets at 6 pm, again at 7 pm and at 11 pm the evening prior to surgery 6 tablet 0 iv contrast (will be provided with radiology test) CT Chest ABD/PEL-Inject, intravenously, once for1 dose.No IV access, insert saline lock prior to the beginning of sedation, infusion, injection of imaging exam. Discontinue saline lock post exam. If Pt. has a central line or IVAD, may access for administration according to line specific nursing protocol. Once exam is complete flush line and de-access according to line specific nursing protocol in the CT contrast administration guidelines link.1 Each 0 enteric contrast (will be provided with radiology test) For CT CHESTABD/PEL W IVCON Routine order Administer, As Directed One Time Only, via Oral, Rectal, both Oral and Rectal, Enteric Tube, Stoma orIndwelling Catheter, Enteric Contrast as designated per enteric contrast guidelines 1 Each 0 Ascorbic Gxye-Vpwcomxoc-Mip (EMERGEN-C) 1,000 mg pwep Take 1 Packet [...] a day as needed (rectal discomfort). omega 1-lfm-pat-fish oil 120-180-500 mg cap Take 500 mg by mouth once daily. No current facility-administered medications for this visit. ALLERGIES Allergen Reactions Murojmp-Aru-Cod Red* Other: See Comments, Unknown, Myalgia myalgias FAMILY HISTORY Problem Relation Age of Onset Stroke Mother COPD Father Heart Father Colon Cancer Brother Social History Tobacco Use Smoking status: Never Smokeless tobacco: Never Vaping Use Vaping Use: Never used Substance Use Topics Alcohol use: Yes Comment: 2 drinks a couple times a month Drug use: Never Physical Exam: BP 116/69 (BP Site: Right Arm, BP Position: Sitting, BP Cuff Size: Regular Adult) Pulse 104 Temp 36.1 C (97 F) SpO2 98% General Appearance: Well appearing, alert, in mild distress, well-hydrated, well nourished. Abdomen: Soft, nondistended, appropriately tender. Incisions are healing well. Diverting ileostomy noted right abdomen. Mucosa is red moist and healthy. MCJ is from 2-9 o'clock, separation is small and shallow. Functional os points towards the 6:00. Ileostomy noted to be within a well, from 3-9 o'clock the well is deeper and more pronounced. Peristomal skin is semisoft. She has near circumferential partial-thickness tissue loss, erythema denuded weepy open skin. The peristomal skin breakdown is from 2-10 o'clock. The skin breakdown extends inferiorly approximately 4 to 5 inches. Allopen and is weeping and denuded, tender with exam, bleeds easily. [place] soak was done in the office for 15 minutes. Able to crust her peristomal skin only once due to severe pain from the skin prep. Repouched using a Coloplast deep convex, circumferential moldable ring, 2.0mm moldable ring folded in 3:30 to 9:00, strip paste from 3-9 o'clock next to the moldable ring, strip paced at the edges of 3 and 9:00 to fill spaces. Assessment Assessment and Plan: Nancy Sue is a 63 year old female s/p a Laparoscopic converted to open low anterior resection,Splenic flexure mobilization, Diverting loop ileostomy, Flexible Sigmoidoscopy on 12/28/2023. Severeperistomal skin breakdown that has not been successfully managed outpatient. Likely high ostomy output based on the consistency of the effluent in her pouch today which was thin and bilious. Recommended to get patient presents to the emergency room for inpatient ostomy care. When she is inpatient it is very important that if her pouch leaks that it is removed immediately and [place]'s soaks are completed. She may leak overnight, when this happens do not reinforce the pouch and wait for the ostomy team to evaluate. Dr. Francois and the inpatient team were updated. Patient and her wereagreeable with this plan, patient states relief regarding going back into the hospital for help. Medical Decision Making: Data Reviewed: Tests & Documents Reviewed/ordered: Review of prior notes from hospitalization Review of prior operative reports Review of Pathology I have independently interpreted: n/a I have discussed Nancy Sue's treatment plan and/or results with the patient, Dr. Francois. Risk of morbidity, mortality and/or complications of treatment plan: lane Ortega APRN.MONTEZ Colorectal Surgery documented in this encounterSelect [facility] Telephone encounter Note * Telephone Encounter - Ally Conte RN - 01/15/2024 8:35 AM EDT Call placed to patient based on My Chart message. Since writing message, she followed up at [facility] wound clinic and was treated for skin fungal infection as well as changed pouch to convex and ostomy belt. So far no leakage noted from new pouch. Discussed anatomy and that she has a loop ileostomy. Discussed ensuring pouch adheres to lower aspect of stoma as there are 2 openings. She is concerned with umbilical tenderness from constant cleaning due to leakage, notes small opening in incision. She denies redness to skin surrounding area. Advised to keep area clean and dry. She has a post op appt in 2 days for evaluation. She will call office for any concerns-office number provided. She is feeling well otherwise, keeping up with fluids and staying active in the home. [facility]05-07-2024 Miscellaneous Notes* Telephone Encounter - Ally Conte RN - 01/15/2024 8:35 AM EDT Call placed to patient based on My Chart message. Since writing message, she followed up at [facility] wound clinic and was treated for skin fungal infection as well as changed pouch to convex and ostomy belt. So far no leakage noted from new pouch. Discussed anatomy and that she has a loop ileostomy. Discussed ensuring pouch adheres to lower aspect of stoma as there are 2 openings. She is concerned with umbilical tenderness from constant cleaning due to leakage, notes small opening in incision. She denies redness to skin surrounding area. Advised to keep area clean and dry. She has a post op appt in 2 days for evaluation. She will call office for any concerns-office number provided. She is feeling well otherwise, keeping up with fluids and staying active in the home. documented in this encounterSelect [facility]24 Instructions* Patient Instructions* Kimi Mccain - 01/11/2024 3:13 PM EDT RTC in 3 months Labs same day documented in this encounterSelect Medical [facility]05-03-2024 History of Present illness Narrative* Jose Wing MD - 01/11/2024 2:45 PM EDT Images from the original note were not included. NAME: Roberto Suea CLINIC NO.: [id number] DATE OF SERVICE: January 11, 2024 (Dianne) Some elements in this clinic note that are critical to medical decision making have been carefully reviewed and included from a prior clinic note dated: November 21, 2023 (Dianne) Referring Provider: Kaley Francois Additional Clinicians involved in Nancy Sue's care: Dr. Justin Buckner, Dr. 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 systemic therapy. She was diagnosed 05/30/2023 on colonoscopydone for rectal bleeding that started in February 2023. Surprisingly not iron deficient. PET shows mesenteric and retroperitoneal LN's. Most consistent with stage IV disease. 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 Final path at resection was Stage I - no treatment response noted on pathology evaluation. Started FOLFOX on 08/29/2023. Cancer Staging Cancer of sigmoid (HCC) Staging form: Colon and Rectum, AJCC 8th Edition - Clinical stage from 06/29/2023: Stage IVB (cTX, cNX, cM1b) - Signed by Jose Wing MD on 07/20/2023 - Pathologic stage from 01/03/2024: Stage I (ypT2, pN0, cM0) - Signed by Jose Wing MD on 01/13/2024 LN's identified are borderline - may be Overstaged. Pulmonary GPS Biopsy of Right lung lesion - Carcinoid. PLAN: RTC in 3 months Labs same day HPI: CASE HISTORY: Reverse Chronological Order 12/28/2023 - Laparoscopic converted to open low anterior resection, Splenic flexure mobilization, Diverting loop ileostomy, Flexible Sigmoidoscopy A. Hepatic artery lymph node, excision: - One lymph node, negative for malignancy (0/1). B. Sigmoid colon and proximal rectum, resection: - Residual invasive adenocarcinoma (see synoptic report). - One additional tubular adenoma. - Diverticular disease with associated focal active inflammation. - Sixteen lymph nodes, negative for malignancy (0/16). C. Distal donut, excision: - Segment of rectum with no diagnostic abnormality. 11/07/2023 - CT CAP: Chest: Streaky scarring/discoid atelectasis in the left upper lobe, increased since 08/13/23. Several subcentimeter nodular opacities measuring up to 8 mm, stable since 06/22/23. Findings compatible with previous granulomatous disease. A/P: Mild splenomegaly, increased in size since 06/22/23. Nnas-hq-btnzlnyk abdominal lymphadenopathy, stable. Increased streaky reticulation of [...] known primary, associated with mildly prominent with kpmh-zb-gtdrqcxy FDG uptake in upper mesenteric and retroperitoneal [...] measures 1.5 x 1.0 cm, image 36, series6 Additional subcentimeter retroperitoneal and gastrohepatic ligament lymph nodes are identified. 06/08/2023 - Flex Sig Dr. Francois - Malignant tumor in the distal sigmoid colon 05/30/2023 - Colonoscopy Dr. Lee - 3 polyps and recto-sigmoid mass - Invasive mod. Diff adenoca. 02/2023 - Bowel pressure and rectal bleeding. Updated Visit, January 11, 2024: Nancy returns today with Leoncio. Lymph node pathology was negative. She will have an ostomy bag for 2 months. We discussed the lack of change to her tumor after chemotherapy - continued chemotherapy is unlikely to help in the future. She is not anemic and platelets are normal. Updated Visit, November 21, 2023: Nancy returns [...] break from therapy and a trip to [place]. She was thrombocytopenic and mildlyneutropenic at last visit causing a delay. Reviewed [...] is looking forward to a trip to [place] 10/01 - 10/06. Updated Visit, September 12, [...] signs/symptoms of infection. No bleeding or abnormal bruising.Overall, she is doing well and wishes to proceed with treatment as planned. Updated Visit, September 07, 2023: Nancy Sue returns for scheduled follow-up. She received cycle 1 FOLFOX on 08/29/2023. Right after treatment the same day she had developed cold sensitivity. Overall, she tolerated treatment well. She denies any mouth sores. No significant diarrhea. She has not had any further blood in her stoolssince Alexandrea. She remains on 1 oral iron pills [...] treatment. Updated Visit, July 27, 2023: Virtual Visit Discussed with nancy and Leoncio plan from tumor board review. Discussed lung lesion and need for biopsy. As well as potentially overstated and subsequent overstaging LN of retroperitoneum and upper mesenteric LN stations. Patient and agree with the plan. Updated Visit, July 20, 2023: Nancy returns today with Leoncio and daughter Jennifer for follow up. I reviewed her recent PET CTwith them, we should likely plan on chemotherapy as next steps as her disease can be classified as Stage 4. I will bring her case to the tumor board in order to get a broader range of recommendations, in the meantime I will start preparing to start her on chemotherapy. She reports still having somebloody stools, which she feels may have been a little worse lately than in the past. She would liketo have a second opinion in addition to the tumor board recommendations. Her daughter Jennifer works in cardiology. This was a very lengthy and emotional discussion as it was unexpected by us all. Initial Visit, June 29, 2023: Nancy Sue presents today Hematology and Oncology evaluation. She is a 63 year old female who hadchanges in bowel habits and presumed hemorrhoidal bleeding for 3 months. She underwent colonoscopy and was found to have a recto-sigmoid mass that was not obstructing by Dr Lee. Path consistent withmalignancy. Staging studies incomplete but she does have selwyn-hepatis nodes that are concerning for metastatic disease. Additionally, lung nodules also concerning for metastasis. Continues to have bowel pressure. Rectal bleeding. Here with Leoncio who is a pollution control chemist and getting ready to retire. 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 REVIEW OF SYSTEMS Per HPI and otherwise negative by full review of organ systems. ECOG PERFORMANCE STATUS: 0 PHYSICAL EXAMINATION: Vitals: BP 136/83 Pulse 88 Temp (Src) 97.6 (Temporal) Resp 18 Ht 5' 4.685 (1.64m) Wt 204lb 2.3 oz (92.6kg) SpO2 99% BMI 34.30 kg/(m^2). Body surface area is 2.06 meters squared. Exam limited to gross visualization [...] wounds or petechiae. ALLERGIES: ALLERGIES Allergen Reactions Wresqen-Uwl-Rvu Red* Other: See Comments, Unknown, Myalgia myalgias MEDICATIONS: loperamide (IMODIUM) 2 mg cap(s) Take 1 capsule by mouth three times a day before meals. enoxaparin (LOVENOX) 40 mg/0.4 mL Inject 0.4 mL subcutaneously once daily for 21 days. ondansetron (ZOFRAN) 4 mg tablet Take 1 tablet by mouth every 8 hours as needed for nausea/vomitingfor up to 15 doses. lactobacillus rhamnosus (CULTURELLE) 10 billion cell capsule Take 1 capsule by mouth once daily. acetaminophen (TYLENOL EXTRA STRENGTH) 500 mg tablet Take 2 tablets by mouth every 6 hours as needed for pain. ibuprofen (MOTRIN) 200 mg tablet Take 2 tablets by mouth every 6 hours. neomycin 500 mg tablet Take 2 tablets by mouth as directed. Take 2 tablets at 6 pm, again at 7 pm and at 11 pm the evening prior to surgery enteric contrast (will be provided with radiology test) For CT CHESTABD/PEL W IVCON Routine order Administer, As Directed One Time Only, via Oral, Rectal, both Oral and Rectal, Enteric Tube, Stoma orIndwelling Catheter, Enteric Contrast as designated per enteric contrast guidelines Ascorbic Ujgc-Hkelxsiiz-Sxa (EMERGEN-C) 1,000 mg pwep Take 1 Packet [...] a day as needed (rectal discomfort). omega 2-trt-jqu-fish oil 120-180-500 mg cap Take 500 mg by mouth once daily. iv contrast (will be provided with radiology test) CT Chest ABD/PEL-Inject, intravenously, once for1 dose.No IV access, insert saline lock prior to the beginning of sedation, infusion, injection of imaging exam. Discontinue saline lock post exam. If Pt. has a central line or IVAD, may access for administration according to line specific nursing protocol. Once exam is complete flush line and de-access according to line specific nursing protocol in the CT contrast administration guidelines link. LABORATORY VALUES: WBC (k/uL) Date Value 01/11/2024 5.61 RBC (m/uL) Date Value 01/11/2024 3.88 (L) Hemoglobin (g/dL) Date Value 01/11/2024 11.8 Hematocrit (%) Date Value 01/11/2024 34.5 (L) MCV (fL) Date Value 01/11/2024 88.9 MCH (pg) Date Value 01/11/2024 30.4 MCHC (g/dL) Date Value 01/11/2024 34.2 RDW-CV (%) Date Value 01/11/2024 13.6 Platelet Count (k/uL) Date Value 01/11/2024 205 MPV (fL) Date Value 01/11/2024 10.3 Glucose (mg/dL) Date Value 01/11/2024 125 (H) BUN (mg/dL) Date Value 01/11/2024 18 Creatinine (mg/dL) Date Value 01/11/2024 1.00 (H) Sodium (mmol/L) Date Value 01/11/2024 132 (L) Potassium (mmol/L) Date Value 01/11/2024 4.5 Chloride (mmol/L) Date Value 01/11/2024 96 (L) CO2 (mmol/L) Date Value 01/11/2024 24 Protein, Total (g/dL) Date Value 01/11/2024 7.2 Albumin (g/dL) Date Value 01/11/2024 4.6 Calcium, Total (mg/dL) Date Value 01/11/2024 9.7 Alkaline Phosphatase (U/L) Date Value 01/11/2024 73 Bilirubin, Total (mg/dL) Date Value 01/11/2024 0.4 AST (U/L) Date Value 01/11/2024 49 (H) ALT (U/L) Date Value 01/11/2024 48 (H) CEA (ng/mL) Date Value 11/07/2023 1.2 09/26/2023 1.4 08/29/2023 2.5 06/29/2023 1.5 06/05/2023 1.4 DIAGNOSIS: (C18.7) Malignant neoplasm of sigmoid colon (HCC) (primary encounter diagnosis) Plan: COMPLETE BLOOD COUNT AND DIFFERENTIAL, COMPREHENSIVE METABOLIC PANEL, IRON AND TIBC, FERRITIN, VITAMIN B12, FOLATE, SERUM, CARCINOEMBRYONIC ANTIGEN PAST MEDICAL HISTORY Diagnosis Date Anemia High cholesterol HTN (hypertension) Hypothyroidism PAST SURGICAL HISTORY Procedure Laterality Date ;TOTAL HYSTERECTMY TUBE(S) &/OR OVARY BRONCHOSCOPY W/PLACEMENT TRACHEAL STENT COLONOSCOPY SCREENING LIPOMA (MEDIUM) Social History Tobacco [...] which included preparing to see the patient, nhpe-uf-wlid patient care, completing clinical documentation, performing a medically appropriate examination, counseling and educating the patient/family/caregiver, ordering medications, tests, or procedures, independently interpreting results (not separately reported), communicating results to the patient/family/caregiver, and care coordination (not separately reported). Jose Wing MD, CPE Hematology and Oncology Services Provided at: [place], [place] Scribe Attestation: This note was scribed by Kimi Mccain on January 11, 2024 under the direction and supervision of Dr. Jose Wing. I attest that all of the information documented is correct to the best of my knowledge. Provider Attestation: I, Jose Wing MD, attest that all information documented by the above scribe is correct, and was supervised by me and under my direction. CC: Dr. Justin Francois documented in [facility]24 NoteHNO ID: [id number] Author: ?, ?, ? Service: ? Author Type: ? Type: Plan of Care Filed: 01/08/2024 12:10 Note Text: PHARMACY BEDSIDE DELIVERY SERVICE Patient Name: Nancy Sue The marked outpatient medications were Filled at: [facility] and delivered to the patient's bedside to [id number] Medication List START taking these medications acetaminophen 500 mg tablet Commonly known as: TYLENOL EXTRA STRENGTH Take 2 tablets by mouth every 6 hours as needed for pain. enoxaparin 40 mg/0.4 mL Commonly known as: LOVENOX Inject 0.4 mL subcutaneously once daily for 21 days. ibuprofen 200 mg tablet Commonly known as: MOTRIN Take 2 tablets by mouth every 6 hours. lactobacillus rhamnosus 10 billion cell capsule Commonly known as: CULTURELLE Take 1 capsule by mouth once daily. loperamide 2 mg cap(s) Commonly known as: IMODIUM Take 1 capsule by mouth three times a day before meals. oxyCODONE IR 5 mg immediate release tablet Commonly known as: ROXICODONE Take 1 tablet by mouth every 6 hours as needed for pain for up to 25 doses. CHANGE how you take these medications * ondansetron 8 mg tablet Commonly known as: ZOFRAN Take 1 tablet by mouth every 8 hours as needed for nausea/vomiting. What changed: Another medication with the same name was added. Make sure you understand how and when to take each. * ondansetron 4 mg tablet Commonly known as: ZOFRAN Take 1 tablet by mouth every 8 hours as needed for nausea/vomiting for up to 15 doses. What changed: You were already taking a medication with the same name, and this prescription was added. Make sure you understand how and when to take each. * This list has 2 medication(s) that are the same as other medications prescribed for you. Read the directions carefully, and ask your doctor or other care provider to review them with you. CONTINUE taking these medications collagen, hydr (bovine) (bulk) 100 % Powd EMERGEN-C 1,000 mg Pwep Generic drug: Ascorbic Tbof-Vddjssgns-Mwv enteric contrast (will be provided with radiology test) For CT CHESTABD/PEL W IVCON Routine order Administer, As Directed One Time Only, via Oral, Rectal, both Oral and Rectal, Enteric Tube, Stoma or Indwelling Catheter, Enteric Contrast as designated per enteric contrast guidelines folic acid 1 mg tablet IRON BIS GLYCIN-FE P-SAC CMPLX ORAL iv contrast (will be provided with radiology [...] the CT contrast administration guidelines link. levothyroxine 50 mcg tablet Commonly known as: SYNTHROID neomycin 500 mg tablet Take 2 tablets by mouth as directed. Take 2 tablets at 6 pm, again at 7 pm and at 11 pm the evening prior to surgery omega 6-tke-soi-fish oil 120-180-500 mg Cap Pramoxine-Hydrocortisone 1-1 % rectal cream Commonly known as: ANALPRAM-HC prochlorperazine 10 mg tablet Commonly known as: COMPAZINE Take 1 tablet by mouth every 6 hours as needed. TYLENOL PM ORAL You might also be taking other medications not listed above. If you have questions about any of your other medications, talk to the person who prescribed them or your Primary Care Provider. STOP taking these medications metroNIDAZOLE 500 mg tablet Commonly known as: SERENA Carolerafael Isidro PAGER: [id number] January 08, 2024 12:09 [facility]04-25-2024 NoteHNO ID: [id number] Author: LALO ESPINOZA MD Service: Colorectal Author Type: Resident Type: Progress Notes Filed: 01/03/2024 12:52 Note Text: PROGRESS NOTES - SURGICAL SERVICES SERVICE DATE: 01/03/2024 SERVICE TIME: 12:50 PM Surgery: s/p laparoscopic converted to open low anterior resection with colorectal anastomosis, laparoscopic splenic flexure mobilization, and flexible sigmoidoscopy (12/27) ASSESSMENT AND PLAN Nancy Sue is a 63 yo female with PMH HTN, HLD, and hypothyroidism who is now s/p laparoscopic converted to open low anterior resection with colorectal anastomosis, laparoscopic splenic flexure mobilization, and flexible sigmoidoscopy (12/27) for colon cancer. Recovering well post operatively, continues to have high ostomy output Neuro: Pain control: miladys APAP, gabapentin. Continue PO oxycodone. Cardiac: Vitals HDS. Respiratory: Incentive spirometry. Minimize use of supplemental O2. GI: Diet: Continue GIS. Antiemetic available. Entereg q12. Follow up pathology. Stoma team following. FEN: Electrolytes replete PRN. Continue to monitor stoma output, will continue immodium 2mg with meals today. Renal: Urine output adequate UOP. Creatinine wnl. ID: s/p perioperative abx Heme: Hemoglobin wnl. No clinical evidence of bleeding. Follow-up CBC. Endo: home levothyroxine Wound: c/d/i Lines/Drains: MIMI x1 Prophylaxis: IPCs, enoxaparin 40mg BID PT/OT Dispo: Possible d/c today. Marilyn Delgadillo MD PGY-3 General Surgery January 03, 2024, 12:50 PM Surgery Blue Team [phone] weekdays. Or [phone] weeknights (6pm - 6am) and weekends. SUBJECTIVE INTERVAL HISTORY OF PRESENT ILLNESS: No acute events overnight Continues to have high stoma output @ 2L; however, only 330 during second shift after imodium was added. MEDICATIONS: Current Facility-Administered Medications Medication Dose Route Frequency levothyroxine 50 mcg tab(s) (SYNTHROID) 50 mcg ORAL DAILY (6 AM) enoxaparin 40 mg injection (LOVENOX) 40 mg SUBCUTANEOUS q 24 HR NaCl 0.9% iv flush bag 20 mL INTRAVENOUS PRN ondansetron (PF) 4 mg injection (ZOFRAN) 4 mg INTRAVENOUS q 6 H PRN acetaminophen 1,000 mg tab(s) (TYLENOL) 1,000 mg ORAL q 6 H naloxone 0.1 mg injection (NARCAN) 0.1 mg INTRAVENOUS q 2 MIN PRN oxyCODONE IR 5 mg tab(s) (ROXICODONE) 5 mg ORAL q 4 H PRN lactated ringers 1-999 mL iv bolus 1-999 mL INTRAVENOUS q 8 H lactobacillus rhamnosus 10 billion cell (CULTURELLE) capsule 1 capsule ORAL DAILY melatonin 3 mg tab(s) 3 mg ORAL DAILY (8 PM) loperamide 2 mg cap(s) (IMODIUM) 2 mg ORAL TID before MEALS OBJECTIVE PHYSICAL EXAM: BP 110/72 Pulse 85 Temp 36.5 ?C (97.7 ?F) (Oral) Resp 18 Ht 164.3 cm (5' 4.69 ) Wt 100.7 kg (222 lb) SpO2 97% BMI 37.30 kg/m? Body mass index is 37.3 kg/m?. GENERAL: Alert, no distress, cooperative SKIN: No rashes or lesions. HEAD/SINUSES: Atraumatic EYES: Anicteric, EOMI OROPHARYNX: Oral mucosa moist LUNGS: Nonlabored breathing on room air, symmetric chest rise CARDIAC: Regular rate; extremities warm and well perfused ABDOMEN: Abdomen soft, approp tender, non-distended - Incision: c/d/i - MIMI serosanguinous - Stoma: pink and healthy, liquid enteric output slightly thicker DATA: Date 01/02/24 07 - 01/03/24 0659 01/03/24699 - 01/04/24 0659 Shift 1986-4394 6307-9837 4558-3564 24 Hour Total 1194-3224 6361-0623 7050-1763 24 Hour Total INTAKE PO 910 1030 1100 3040 PO 910 1030 1100 3040 IV 275 275 Volume (mL) (lactated ringers 1-999 mL iv bolus) 275 275 Shift Total 910 1305 1100 3315 OUTPUT Urine 600 880 186 7271 500 500 Void (ml) 600 514 126 5733 500 500 Emesis 0 0 0 Emesis (ml) 0 0 0 Ostomy 1350 111 609 1063 250 250 Output (mL) (Colostomy 12/28/23 RUQ) 1350 820 635 9478 250 250 # of BMs Number of BMs 0 x 0 x Shift Total 1950 3357 793 8062 750 750 Weight (kg) 100.7 100.7 100.7 100.7 100.7 100.7 100.7 100.7 Diagnostic tests reviewed for today's visit: CBC, Coags, BMP, Mg, Phos Recent Labs 01/03/24 0810 01/02/24 0629 01/01/24 0813 WBC 4.59 -- -- HB 10.9* -- -- HCT 32.3* -- -- PLT 152 -- -- NA -- 142 141 K -- 4.1 4.1 CHLOR -- 102 103 CO2 -- 27 26 BUN -- 10 12 CREAT -- 0.79 0.79 GLUC -- 110* 103* CA -- 9.1 9.1 MG -- 1.9 1.8 P -- 4.0 3.5 Liver Function, Amylase, AND LipaseSaint Anne'S [id number] NoteHNO ID: [id number] Author: MARILYN DELGADILLO MD Service: Colorectal Author Type: Resident Type: Progress Notes Filed: 01/02/2024 08:42 Note Text: Attestation signed by Kaley Francois MD at 01/02/2024 5:43 PM I evaluated the patient and personally participated in the freed components. I agree with the resident's findings and plan with the following revisions and/or additions: optimize stoma output with imodium. D/c pending stoma output improvement Signature: Kaley Francois MD Service Date: 01/02/2024 PROGRESS NOTES - SURGICAL SERVICES SERVICE DATE: 01/02/2024 SERVICE TIME: 6:51 AM Surgery: s/p laparoscopic converted to open low anterior resection with colorectal anastomosis, laparoscopic splenic flexure mobilization, and flexible sigmoidoscopy (12/27) ASSESSMENT AND PLAN Nancy Sue is a 63 yo female with PMH HTN, HLD, and hypothyroidism who is now s/p laparoscopic converted to open low anterior resection with colorectal anastomosis, laparoscopic splenic flexure mobilization, and flexible sigmoidoscopy (12/27) for colon cancer. Recovering well post operatively, continues to have high ostomy output Neuro: Pain control: miladys APAP, gabapentin. Continue PO oxycodone. Cardiac: Vitals HDS. Respiratory: Incentive spirometry. Minimize use of supplemental O2. GI: Diet: Continue GIS. Antiemetic available. Entereg q12. Follow up pathology. Stoma team following. Consider MIMI removal. FEN: Electrolytes replete PRN, follow up BMP today. Continue to monitor stoma output, will start immodium 2mg BID with meals today. Renal: Urine output adequate UOP. Creatinine wnl. ID: s/p perioperative abx Heme: Hemoglobin wnl. No clinical evidence of bleeding. Endo: home levothyroxine Wound: c/d/i Lines/Drains: MIMI x1 Prophylaxis: IPCs, enoxaparin 40mg BID PT/OT Dispo: BRYON Delgadillo MD PGY-3 General Surgery January 02, 2024, 8:23 AM Surgery Blue Team [phone] weekdays. Or [phone] weeknights (6pm - 6am) and weekends. SUBJECTIVE INTERVAL HISTORY OF PRESENT ILLNESS: No acute events overnight Continues to have high stoma output - 1770 yesterday Pain under control, she reports she feels much better today. Stoma teaching yesterday went well MEDICATIONS: Current Facility-Administered Medications Medication Dose Route Frequency levothyroxine 50 mcg tab(s) (SYNTHROID) 50 mcg ORAL DAILY (6 AM) enoxaparin 40 mg injection (LOVENOX) 40 mg SUBCUTANEOUS q 24 HR NaCl 0.9% iv flush bag 20 mL INTRAVENOUS PRN ondansetron (PF) 4 mg injection (ZOFRAN) 4 mg INTRAVENOUS q 6 H PRN acetaminophen 1,000 mg tab(s) (TYLENOL) 1,000 mg ORAL q 6 H gabapentin 300 mg cap(s) (NEURONTIN) 300 mg ORAL q 8 H naloxone 0.1 mg injection (NARCAN) 0.1 mg INTRAVENOUS q 2 MIN PRN oxyCODONE IR 5 mg tab(s) (ROXICODONE) 5 mg ORAL q 4 H PRN lactated ringers 1-999 mL iv bolus 1-999 mL INTRAVENOUS q 8 H lactobacillus rhamnosus 10 billion cell (CULTURELLE) capsule 1 capsule ORAL DAILY melatonin 3 mg tab(s) 3 mg ORAL DAILY (8 PM) OBJECTIVE PHYSICAL EXAM: BP 121/55 Pulse 66 Temp 36.3 ?C (97.3 ?F) (Oral) Resp 18 Ht 164.3 cm (5' 4.69 ) Wt 100.7 kg (222 lb) SpO2 96% BMI 37.30 kg/m? Body mass index is 37.3 kg/m?. GENERAL: Alert, no distress, cooperative SKIN: No rashes or lesions. HEAD/SINUSES: Atraumatic EYES: Anicteric, EOMI OROPHARYNX: Oral mucosa moist LUNGS: Nonlabored breathing on room air, symmetric chest rise CARDIAC: Regular rate; extremities warm and well perfused ABDOMEN: Abdomen soft, approp tender, non-distended - Incision: c/d/i - MIMI serosanguinous - Stoma: pink and healthy, liquid enteric output DATA: Date 01/01/24699 - 01/02/2465801/02/24699 - 01/03/24 0659 Shift 0334-9871 1491-8510 4890-8179 24 Hour Total 5126-3072 4196-3733 6103-1067 24 Hour Total INTAKE PO 7628 552 2816 PO 6287 623 4778 Shift Total 1620 788 9011 OUTPUT Urine 800 9297 925 7369 Void (ml) 800 3339 565 0344 Urine Not Saved. 1 x 1 x Emesis 0 0 Emesis (ml) 0 0 Tubes 50 50 Drain/Tube Output (Drain/Tube 12/28/23 2211 Dean Left Anterior;Upper Quadrant) 50 50 Ostomy 875 0712 249 3965 Output (mL) (Colostomy 12/28/23 RUQ) 875 8716 006 1501 # of BMs Number of BMs 0 x 0 x Shift Total 1725 2600 700 5025 Weight (kg) 100.7 100.7 100.7 100.7 100.7 100.7 100.7 100.7 Diagnostic tests reviewed for today's visit: CBC, Coags, BMP, Mg, Phos Recent Labs 01/01/24 0813 NA 141 K 4.1 CHLOR 103 CO2 26 BUN 12 CREAT 0.79 GLUC 103* CA 9.1 MG 1.8 P 3.5 Liver Function, Amylase, AND LipaseSaint Anne'S [id number] NoteHNO ID: [id number] Author: REYES STERN RN Service: ? Author Type: Registered Nurse Type: Nursing Progress Note Filed: 01/01/2024 23:07 Note Text: Other: Ptx requesting for sleeping pill, SROD paged.[facility]'S HospitalYngxrixy27-02-1787 NoteHNO ID: [id number] Author: KALEY FRANCOIS MD Service: Colorectal Author Type: Physician Type: Progress Notes Filed: 01/01/2024 17:07 Note Text: Documentation Query Based on your medical judgment of the clinical indicators outlined below, please clarify the condition: (Please type X next to your response and sign) Clinical Indicators: 12/27 Operative note: NAME OF OPERATION: Laparoscopic converted to open low anterior resection.Splenic flexure mobilization Diverting loop ileostomy. Flexible Sigmoidoscopy Estimated blood loss: 500cc Labs: 12/19/23 12/29/23 12/30/23 Hemoglobin 13.0 10.7 9.2 Hematocrit 40.6 31.9 28.2 Treatment: CBC monitoring Please clarify the diagnosis associated with the above clinical indicators x Acute blood loss anemia Other, please specify [facility] [id number] NoteHNO ID: [id number] Author: LALO ESPINOZA MD Service: Colorectal Author Type: Resident Type: Progress Notes Filed: 01/01/2024 10:03 Note Text: Attestation signed by Kaley Francois MD at 01/01/2024 5:06 PM I evaluated the patient and personally participated in the freed components. I agree with the resident's findings and plan with the following revisions and/or additions: GIS, d/c drain, monitor output. Anticipate improvement of consistency with PO intake. If not, will start antimotility tomorrow. Signature: Kaley Francois MD Service Date: 01/01/2024 PROGRESS NOTES - SURGICAL SERVICES SERVICE DATE: 01/01/2024 SERVICE TIME: 9:59 AM Surgery: s/p laparoscopic converted to open low anterior resection with colorectal anastomosis, laparoscopic splenic flexure mobilization, and flexible sigmoidoscopy (12/27) ASSESSMENT AND PLAN Nancy Sue is a 63 yo female with PMH HTN, HLD, and hypothyroidism who is now s/p laparoscopic converted to open low anterior resection with colorectal anastomosis, laparoscopic splenic flexure mobilization, and flexible sigmoidoscopy (12/27) for colon cancer. Neuro: Pain control: miladys APAP, gabapentin. Continue PO oxycodone. Cardiac: Vitals HDS. Respiratory: Incentive spirometry. Minimize use of supplemental O2. GI: Diet: Advance to GIS. Antiemetic available. Entereg q12. Follow up pathology. Stoma team following. Consider MIMI removal. FEN: HLIV. Electrolytes replete PRN. Monitor stoma output after starting GIS diet, may need to consider thickening agents. Renal: Urine output adequate UOP. Creatinine wnl. ID: s/p perioperative abx Heme: Hemoglobin wnl. No clinical evidence of bleeding. Endo: home levothyroxine Wound: c/d/i Lines/Drains: MIMI x1 Prophylaxis: IPCs, enoxaparin 40mg BID PT/OT Dispo: BRYON Espinoza MD PGY-2 General Surgery Surgery Blue Team [phone] week. Or [phone] weeknights (6pm - 6am) and weekends. SUBJECTIVE INTERVAL HISTORY OF PRESENT ILLNESS: No acute events overnight Pain under control Ostomy working with liquid stool; output is high at 2050 cc Passed TOV Weaned from NC; now ORA MEDICATIONS: Current Facility-Administered Medications Medication Dose Route Frequency levothyroxine 50 mcg tab(s) (SYNTHROID) 50 mcg ORAL DAILY (6 AM) enoxaparin 40 mg injection (LOVENOX) 40 mg SUBCUTANEOUS q 24 HR NaCl 0.9% iv flush bag 20 mL INTRAVENOUS PRN ondansetron (PF) 4 mg injection (ZOFRAN) 4 mg INTRAVENOUS q 6 H PRN acetaminophen 1,000 mg tab(s) (TYLENOL) 1,000 mg ORAL q 6 H gabapentin 300 mg cap(s) (NEURONTIN) 300 mg ORAL q 8 H naloxone 0.1 mg injection (NARCAN) 0.1 mg INTRAVENOUS q 2 MIN PRN oxyCODONE IR 5 mg tab(s) (ROXICODONE) 5 mg ORAL q 4 H PRN lactated ringers 1-999 mL iv bolus 1-999 mL INTRAVENOUS q 8 H lactobacillus rhamnosus 10 billion cell (CULTURELLE) capsule 1 capsule ORAL DAILY OBJECTIVE PHYSICAL EXAM: BP 130/61 Pulse 67 Temp 36.3 ?C (97.3 ?F) (Oral) Resp 18 Ht 164.3 cm (5' 4.69 ) Wt 100.7 kg (222 lb) SpO2 95% BMI 37.30 kg/m? Body mass index is 37.3 kg/m?. GENERAL: Alert, no distress, cooperative SKIN: No rashes or lesions. HEAD/SINUSES: Atraumatic EYES: Anicteric, EOMI OROPHARYNX: Oral mucosa moist LUNGS: Nonlabored breathing on room air, symmetric chest rise CARDIAC: Regular rate; extremities warm and well perfused ABDOMEN: Abdomen soft, approp tender, non-distended - Incision: c/d/i - MIMI serosanguinous - Stoma: pink and healthy DATA: Date 12/31/23699 - 01/01/2465801/01/24699 - 04/24/24 0659 Shift 1922-5784 3483-5023 0376-1785 24 Hour Total 1380-2430 2132-6954 1293-3163 24 Hour Total INTAKE PO 400 076 346 9360 480 480 PO 400 073 643 9438 480 480 IV 1929 027 0091 Volume (mL) (lactated ringers iv infusion) 1064 455 2625 Shift Total 1592 386 447 6532 480 480 OUTPUT Urine 225 260 627 4691 300 300 Void (ml) 225 058 932 1748 300 300 Emesis 0 0 0 0 0 Emesis (ml) 0 0 0 0 0 Tubes 70 55 70 195 0 0 Drain/Tube Output (Drain/Tube 12/28/23 2211 Dean Left Anterior;Upper Quadrant) 70 55 70 195 0 0 Ostomy 625 309 932 5950 350 350 Output (mL) (Colostomy 12/28/23 RUQ) 625 945 686 1791 350 350 # of BMs Number of BMs 0 x 0 x Shift Total 920 1630 1520 4070 650 650 Weight (kg) 100.7 100.7 100.7 100.7 100.7 100.7 100.7 Diagnostic tests reviewed for today's visit: CBC, Coags, BMP, Mg, Phos Recent Labs 01/01/24 0813 12/30/23 0456 WBC -- 4.91 HB -- 9.2* HCT -- 28.2* PLT -- 84* NA 141 140 K 4.1 4.7 CHLOR 103 107* CO2 26 24 BUN 12 16 CREAT 0.79 0.93 GLUC 103* 99 CA 9.1 8.5 MG 1.8 -- P 3.5 -- Liver Function, Amylase, AND LipaseSaint Anne'S HospitalHodlydep50-55-0697 NoteHNO ID: [id number] Author: JHON ABDULLAHI, RN Service: Care Management Author Type: Registered Nurse Type: Care Mgt Initial Assessment Filed: 12/31/2023 16:15 Note Text: CARE MANAGEMENT: ASSESSMENT AND DISCHARGE PLAN SERVICE DATE: December 31, 2023 SERVICE TIME: 4:13 PM PCP: Justin Buckner MD Primary Contact: Extended Emergency Contact Information Primary Emergency Contact: Wendy Sue [facility] Mobile Relation: Spouse Admission Status: Inpatient Insurance Provider: MMO JACKI Discharge Planning requested by: Per Department Practice Potential Transition Plans Home Care Advance Directives Current Advance Directive: None 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 Attempted to Assist with AD Completion: Yes Action: Education Provided Current Living Arrangements and Support Lives with: Spouse/significant other Type of Residence: Private Residence (House) Support: Spouse/significant other How do you manage to accomplish the following: Independent: Ambulation;Bathe/Shower;Dress;Meals/Meal Prep;Going to the bathroom;Medication Management;Transportation to appointments/community Current Services/Equipment Current Post-Acute Service(s): None Discharge Planning Patient Goal(s): Be able to go home, General wellness [place] of Choice Explained: [place] of [place] Given: Yes Level of Care Discussed: Home Care Are you interested in bedside delivery of your medications? No Discharge Planning Participant(s): Patient Patient/Family Comments: Caregiver Assessment: Caregiver is ready, willing and able to meet the patient's needs as recommended by the inter-professional team: Yes Name of Caregiver: C TBD Transport at Discharge: Transportation Arrangements: Car Needs Prior to Discharge: Needs Prior to Discharge: Home Care Order Post-Acute Discharge Plan: The pt is a 63 yo female with PMH HTN, HLD, and hypothyroidism who is now s/p laparoscopic converted to open low anterior resection with colorectal anastomosis, laparoscopic splenic flexure mobilization, and flexible sigmoidoscopy (12/27) for colon cancer. This CM met with the pt at the bedside for assessment. Pt is alert and oriented x3. Pt lives with her . Pt has no DME at home. Pt has no open community services. Pt with new ostomy will benefit from [facility] several [facility] referrals have been initiated to find a [facility] in [facility], and is in net wit MMO Anticipate Pt will arrange own transportation at dc, her can assist. CM remains available to assist if further skilled dc needs arise. SIGNATURE: Jhon Abdullahi RN PATIENT NAME: Nancy Sue DATE: December 31, 2023 TIME: 4:13 PM CONTACT #: [id number] NoteHNO ID: [id number] Author: MARILYN DELGADILLO MD Service: Colorectal Author Type: Resident Type: Progress Notes Filed: 12/31/2023 15:41 Note Text: Attestation signed by Kaley Francois MD at 12/31/2023 4:14 PM I evaluated the patient and personally participated in the freed components. I agree with the resident's findings and plan with the following revisions and/or additions: Stoma function, pain controlled, OOB/Ambulating, tolerating clears. Drain serosang. Plan- ADAT, d/c calix and dPCA. Likely d/c drain tomorrow. Remove stoma franklyn. Anticipate home in 2-3days Signature: Kaley Francois MD Service Date: 12/31/2023 PROGRESS NOTES - SURGICAL SERVICES SERVICE DATE: 12/31/2023 SERVICE TIME: 3:35 PM Surgery: s/p laparoscopic converted to open low anterior resection with colorectal anastomosis, laparoscopic splenic flexure mobilization, and flexible sigmoidoscopy (12/27) ASSESSMENT AND PLAN Nancy Sue is a 63 yo female with PMH HTN, HLD, and hypothyroidism who is now s/p laparoscopic converted to open low anterior resection with colorectal anastomosis, laparoscopic splenic flexure mobilization, and flexible sigmoidoscopy (12/27) for colon cancer. Neuro: Pain control: miladys APAP, gabapentin. DC dPCA, add PO oxycodone Cardiac: Vitals HDS. Respiratory: Incentive spirometry. Minimize use of supplemental O2. GI: Diet: clears. Antiemetic available. Entereg q12. Follow up pathology. Consult to stoma care team, roberto stoma franklyn. Continue MIMI FEN: IV fluids LR at 50 cc/hr. Electrolytes replete PRN. Renal: Urine output adequate UOP. Creatinine wnl. - Discontinue calix ID: s/p perioperative abx Heme: Hemoglobin wnl. No clinical evidence of bleeding. Endo: home levothyroxine Wound: c/d/i Lines/Drains: MIMI x1 Prophylaxis: IPCs, enoxaparin 40mg BID PT/OT Dispo: BRYON Alves MD PGY-4 General Surgery Surgery Blue Team [phone] weekdays. Or [phone] weeknights (6pm - 6am) and weekends. SUBJECTIVE INTERVAL HISTORY OF PRESENT ILLNESS: No acute events overnight Pain under control Ostomy working with liquid stool MEDICATIONS: Current Facility-Administered Medications Medication Dose Route Frequency levothyroxine 50 mcg tab(s) (SYNTHROID) 50 mcg ORAL DAILY (6 AM) enoxaparin 40 mg injection (LOVENOX) 40 mg SUBCUTANEOUS q 24 HR NaCl 0.9% iv flush bag 20 mL INTRAVENOUS PRN lactated ringers iv infusion 50 mL/hr INTRAVENOUS CONTINUOUS alvimopan 12 mg cap(s) (ENTEREG) 12 mg ORAL BID ondansetron (PF) 4 mg injection (ZOFRAN) 4 mg INTRAVENOUS q 6 H PRN acetaminophen 1,000 mg tab(s) (TYLENOL) 1,000 mg ORAL q 6 H gabapentin 300 mg cap(s) (NEURONTIN) 300 mg ORAL q 8 H methocarbamol 1 g injection (ROBAXIN) 1 g INTRAVENOUS q 8 H naloxone 0.1 mg injection (NARCAN) 0.1 mg INTRAVENOUS q 2 MIN PRN OBJECTIVE PHYSICAL EXAM: BP 123/65 Pulse 73 Temp 36.4 ?C (97.5 ?F) (Oral) Resp 18 SpO2 93% There is no height or weight on file to calculate BMI. GENERAL: Alert, no distress, cooperative SKIN: No rashes or lesions. HEAD/SINUSES: Atraumatic EYES: Anicteric, EOMI OROPHARYNX: Oral mucosa moist LUNGS: Nonlabored breathing on 2LNC, symmetric chest rise CARDIAC: Regular rate; extremities warm and well perfused ABDOMEN: Abdomen soft, approp tender, non-distended - Incision: c/d/i - MIMI serosanguinous - Stoma: pink and healthy with red rubber catheter, stool in bowel EXTREMITIES: No peripheral edema DATA: Date 12/30/23 1500 - 12/31/23 0659 12/31/23 0700 - 01/01/24 0659 Shift 1641-8821 9356-6757 24 Hour Total 8284-6809 9889-7693 2763-0562 24 Hour Total INTAKE PO 400 400 PO 400 400 IV 1137 1137 1192 1192 Volume (mL) (lactated ringers iv infusion) 1137 1137 1192 1192 Shift Total 1137 1137 1592 1592 OUTPUT Urine 0468 880 9786 225 225 Void (ml) 225 225 Output ([REMOVED] Indwelling Urinary Catheter 12/28/23 1610 [facility] Calix 16 Fr 12/31/23 0930) 7378 471 1598 Tubes 85 70 225 70 70 Drain/Tube Output (Drain/Tube 12/28/23 2211 [facility] Left Anterior;Upper Quadrant) 85 70 225 70 70 Ostomy 815 659 3119 625 625 Output (mL) (Colostomy 12/28/23 RUQ) 809 198 8109 625 625 Shift Total 2435 1345 4200 920 920 Weight (kg) Diagnostic tests reviewed for today's visit: CBC, Coags, BMP, Mg, Phos Recent Labs 12/30/23 0456 12/29/23 0429 WBC 4.91 8.42 HB 9.2* 10.7* HCT 28.2* 31.9* PLT 84* 96* NA 140 139 K 4.7 4.6 CHLOR 107* 105 CO2 24 21* BUN 16 13 CREAT 0.93 0.75 GLUC 99 156* CA 8.5 8.7 Liver Function, Amylase, AND [place] [id number] NoteHNO ID: [id number] Author: RITESH VIDAL MD Service: Colorectal Author Type: Resident Type: Progress Notes Filed: 12/30/2023 07:56 Note Text: PROGRESS NOTES - SURGICAL SERVICES SERVICE DATE: 12/30/2023 SERVICE TIME: 7:55 AM Surgery: s/p laparoscopic converted to open low anterior resection with colorectal anastomosis, laparoscopic splenic flexure mobilization, and flexible sigmoidoscopy (12/27) ASSESSMENT AND PLAN 63 Y/O F w/ PMHx s/f HTN, HLD, and hypothyroidism who is now s/p laparoscopic converted to open low anterior resection with colorectal anastomosis, laparoscopic splenic flexure mobilization, and flexible sigmoidoscopy (12/27) for colon cancer. Neuro: Pain control: multimodal Cardiac: Vitals HDS. Respiratory: Incentive spirometry. Minimize use of supplemental O2. GI: Diet: limited clears. Antiemetic available. FEN: IV fluids LR at 75 cc/hr. Electrolytes replete PRN. Renal: Urine output adequate UOP. Creatinine wnl. - Continue calix. DC tomorrow POD3 ID: s/p perioperative abx Heme: Hemoglobin wnl. No clinical evidence of bleeding. Endo: glucose wnl. Wound: c/d/i Lines/Drains: MIMI x1 Prophylaxis: IPCs, lovenox PT/OT Dispo: [facility] Ritesh Alves MD PGY-4 General Surgery Surgery Blue Team [phone] week. Or [phone] weeknights (6pm - 6am) and weekends. SUBJECTIVE INTERVAL HISTORY OF PRESENT ILLNESS: S/p laparoscopic converted to open low anterior resection with colorectal anastomosis, laparoscopic splenic flexure mobilization, and flexible sigmoidoscopy (12/27) No acute events overnight Pain under control Ostomy working with liquid stool MEDICATIONS: Current Facility-Administered Medications Medication Dose Route Frequency levothyroxine 50 mcg tab(s) (SYNTHROID) 50 mcg ORAL DAILY (6 AM) enoxaparin 40 mg injection (LOVENOX) 40 mg SUBCUTANEOUS q 24 HR NaCl 0.9% iv flush bag 20 mL INTRAVENOUS PRN lactated ringers iv infusion 75 mL/hr INTRAVENOUS CONTINUOUS alvimopan 12 mg cap(s) (ENTEREG) 12 mg ORAL BID ondansetron (PF) 4 mg injection (ZOFRAN) 4 mg INTRAVENOUS q 6 H PRN acetaminophen 1,000 mg tab(s) (TYLENOL) 1,000 mg ORAL q 6 H gabapentin 300 mg cap(s) (NEURONTIN) 300 mg ORAL q 8 H methocarbamol 1 g injection (ROBAXIN) 1 g INTRAVENOUS q 8 H naloxone 0.1 mg injection (NARCAN) 0.1 mg INTRAVENOUS q 2 MIN PRN NaCl 0.9% iv infusion 5-30 mL/hr INTRAVENOUS CONTINUOUS HYDROmorphone MANAGER SUBWAY 0.5 mg/mL in NaCl 0.9% 100 mL INTRAVENOUS CONTINUOUS keTORolac 15 mg injection (Toradol) 15 mg INTRAVENOUS q 6 H OBJECTIVE PHYSICAL EXAM: BP 112/57 Pulse 73 Temp 36.5 ?C (97.7 ?F) (Oral) Resp 18 SpO2 99% There is no height or weight on file to calculate BMI. GENERAL: Alert, no distress, cooperative SKIN: No rashes or lesions. HEAD/SINUSES: Atraumatic EYES: Anicteric, EOMI OROPHARYNX: Oral mucosa moist LUNGS: Nonlabored breathing on 2LNC, symmetric chest rise CARDIAC: Regular rate; extremities warm and well perfused ABDOMEN: Abdomen soft, approp tender, non-distended - Incision: c/d/i - MIMI serosanguinous - Stoma: pink and healthy with red rubber catheter, stool in bowel EXTREMITIES: No peripheral edema DATA: Date 12/29/23 07 - 12/30/23 0659 12/30/23 07 - 12/31/23 0659 Shift 7354-1767 2011-6580 8366-0575 24 Hour Total 1989-7263 4640-9995 6229-8028 24 Hour Total INTAKE PO 60 120 180 PO 60 120 180 IV 902 110 502 7947 Volume (mL) (lactated ringers iv infusion) 902 312 443 9080 Shift Total 962 030 640 0520 OUTPUT Urine 793 254 6742 Output ( Indwelling Urinary Catheter 12/28/23 1610 [facility] Calix 16 Fr) 087 787 6322 Tubes 130 80 160 370 Drain/Tube Output (Drain/Tube 12/28/23 2211 [facility] Left Anterior;Upper Quadrant) 130 80 160 370 Ostomy 0 150 150 Output (mL) (Colostomy 12/28/23 RUQ) 0 150 150 Shift Total 530 80 960 1570 Weight (kg) Diagnostic tests reviewed for today's visit: CBC, Coags, BMP, Mg, Phos Recent Labs 12/30/23 0456 12/29/23 0429 WBC 4.91 8.42 HB 9.2* 10.7* HCT 28.2* 31.9* PLT 84* 96* NA 140 139 K 4.7 4.6 CHLOR 107* 105 CO2 24 21* BUN 16 13 CREAT 0.93 0.75 GLUC 99 156* CA 8.5 8.7 Liver Function, Amylase, AND LipaseSaint Anne'S [id number] NoteHNO ID: [id number] Author: NAKUL CHINO MD Service: Colorectal Author Type: Resident Type: Progress Notes Filed: 12/29/2023 09:53 Note Text: PROGRESS NOTES - SURGICAL SERVICES SERVICE DATE: 12/29/2023 SERVICE TIME: 9:45 AM Surgery: s/p laparoscopic converted to open low anterior resection with colorectal anastomosis, laparoscopic splenic flexure mobilization, and flexible sigmoidoscopy (12/27) ASSESSMENT AND PLAN 63 Y/O F w/ PMHx s/f HTN, HLD, and hypothyroidism who is now s/p laparoscopic converted to open low anterior resection with colorectal anastomosis, laparoscopic splenic flexure mobilization, and flexible sigmoidoscopy (12/27) for colon cancer. Neuro: Pain control: multimodal - tylenol q6H, gabapentin q8H, IV robaxin q8H, dilaudid MANAGER SUBWAY, okay to add toradol with HgB within expected post-operative range Cardiac: Vitals HDS. Respiratory: Incentive spirometry. Minimize use of supplemental O2. GI: Diet: sips/chips. Antiemetic available. FEN: IV fluids LR at 75 cc/hr. Electrolytes replete PRN. Renal: Urine output adequate UOP. Creatinine wnl. - Continue calix ID: s/p perioperative abx Heme: Hemoglobin wnl. No clinical evidence of bleeding. Endo: glucose wnl. Wound: c/d/i Lines/Drains: MIMI x1 Prophylaxis: IPCs, lovenox PT/OT Dispo: BRYON Chino MD General Surgery Resident PGY-3 SUBJECTIVE INTERVAL HISTORY OF PRESENT ILLNESS: S/p laparoscopic converted to open low anterior resection with colorectal anastomosis, laparoscopic splenic flexure mobilization, and flexible sigmoidoscopy (12/27) No acute events overnight AF HDS on 2LNC Pain controlled Denies n/v Adequate UOP -flatus, -BM through ostomy MEDICATIONS: Current Facility-Administered Medications Medication Dose Route Frequency levothyroxine 50 mcg tab(s) (SYNTHROID) 50 mcg ORAL DAILY (6 AM) enoxaparin 40 mg injection (LOVENOX) 40 mg SUBCUTANEOUS q 24 HR NaCl 0.9% iv flush bag 20 mL INTRAVENOUS PRN lactated ringers iv infusion 75 mL/hr INTRAVENOUS CONTINUOUS alvimopan 12 mg cap(s) (ENTEREG) 12 mg ORAL BID ondansetron (PF) 4 mg injection (ZOFRAN) 4 mg INTRAVENOUS q 6 H PRN acetaminophen 1,000 mg tab(s) (TYLENOL) 1,000 mg ORAL q 6 H gabapentin 300 mg cap(s) (NEURONTIN) 300 mg ORAL q 8 H methocarbamol 1 g injection (ROBAXIN) 1 g INTRAVENOUS q 8 H naloxone 0.1 mg injection (NARCAN) 0.1 mg INTRAVENOUS q 2 MIN PRN NaCl 0.9% iv infusion 5-30 mL/hr INTRAVENOUS CONTINUOUS HYDROmorphone MANAGER SUBWAY 0.5 mg/mL in NaCl 0.9% 100 mL INTRAVENOUS CONTINUOUS OBJECTIVE PHYSICAL EXAM: BP 109/53 Pulse 93 Temp 36.9 ?C (98.4 ?F) (Oral) Resp 20 SpO2 100% There is no height or weight on file to calculate BMI. GENERAL: Alert, no distress, cooperative SKIN: No rashes or lesions. HEAD/SINUSES: Atraumatic EYES: Anicteric, EOMI OROPHARYNX: Oral mucosa moist LUNGS: Nonlabored breathing on 2LNC, symmetric chest rise CARDIAC: Regular rate; extremities warm and well perfused ABDOMEN: Abdomen soft, approp tender, non-distended - Incision: c/d/i - MIMI serosanguinous - Stoma: pink and healthy with red rubber catheter, bowel sweat in bag EXTREMITIES: No peripheral edema DATA: Date 12/28/23 07 - 12/29/23 0659 12/29/23 07 - 12/30/23 0659 Shift 6349-6191 9452-4585 8485-5079 24 Hour Total 4742-7605 6054-7875 1921-2490 24 Hour Total INTAKE IV 4951 500 5451 Volume (mL) (metroNIDAZOLE iv piggyback 500 mg in NaCl (iso-osmotic) 100 mL (FLAGYL)) 100 100 Volume (mL) (cefTRIAXone 2 g in D5W 100 mL Vial-Bag (ROCEPHIN)) 100 100 Volume (mL) (magnesium sulfate 2 g in NaCl 0.9% 100 mL) 1 1 Volume (mL) (albumin (5%) infusion) 250 250 Volume (mL) (lactated ringers iv infusion) 2500 2500 Volume (mL) (lactated ringers iv infusion) 2000 500 2500 Shift Total 4951 500 5451 OUTPUT Urine 300 425 725 100 100 OR Urine Output 300 300 Output ( Indwelling Urinary Catheter 12/28/23 1610 [facility] Calix 16 Fr) 425 425 100 100 Tubes 185 185 80 80 Drain/Tube Output (Drain/Tube 12/28/23 2211 [facility] Left Anterior;Upper Quadrant) 185 185 80 80 Blood 500 500 Estimated Blood loss 500 500 Shift Total 891 026 1081 180 180 Weight (kg) Diagnostic tests reviewed for today's visit: CBC, Coags, BMP, Mg, Phos Recent Labs 12/29/23 0429 WBC 8.42 HB 10.7* HCT 31.9* PLT 96* NA 139 K 4.6 CHLOR 105 CO2 21* BUN 13 CREAT 0.75 GLUC 156* CA 8.7 Liver Function, Amylase, AND LipaseSaint Anne'S [id number] NoteHNO ID: [id number] Author: YADIRA DORADO MD Service: Anesthesiology Author Type: Anesthesiologist Type: Anesthesia Procedure Notes Filed: 12/28/2023 16:25 Note Text: ANESTHESIOLOGY PROCEDURE NOTE A-Line General Information Procedure Start Time/Medication Administration: 12/28/2023 4:00 PM Procedure End Time: 12/28/2023 4:04 PM Patient location during procedure: OR Consent Obtained: Yes Patient identity confirmed: arm band and care application development team lead Indications: continuous blood pressure monitoring Staffing Anesthesiologist: Yadira Dorado MD Performed by: anesthesiologist Preparation Sterility Preparation: hand hygiene performed prior to procedure, sterile gloves, drapes, and procedure tray, surgical cap used, mask used, sterile drape used during line insertion, skin prep agent completely dried prior to procedure Site Prep: Chlorhexidine Procedure Details Catheter Type: arterial line Catheter Size: 20 G Catheter Length: 5.25 in Micropuncture Kit Used: No Guidewire Used: Yes Guidewire Removed Intact: Yes Laterality: left Site: radial artery Ultrasound Guided: No Line Secured: Tegaderm, tape and occlusive biodressing Events Events: patient tolerated procedure well with no complications SIGNATURE: Luisa Beard APRN.CRNA PATIENT NAME: Nancy Sue DATE: December 28, 2023 TIME: 4:16 PM CSN: [id number] NoteHNO ID: [id number] Author: YADIRA DORADO MD Service: Anesthesiology Author Type: Anesthesiologist Type: Anesthesia Procedure Notes Filed: 12/28/2023 16:24 Note Text: ANESTHESIOLOGY PROCEDURE NOTE PIV General Information Procedure Start Time/Medication Administration: 12/28/2023 3:44 PM Procedure End Time: 12/28/2023 3:46 PM Patient Location: OR Staffing Anesthesiologist: Yadira Dorado MD Performed by: anesthesiologist Preparation Sterility Preparation: hand hygiene performed prior to procedure, surgical cap used, mask used, skin prep agent completely dried prior to procedure Site Prep: Chloraprep Procedure Details Indication: need for IV access Needle Size/Type: 16 gauge angiocath Orientation: Right Location: Wrist Imaging Guidance Used: No SIGNATURE: Luisa Beard APRN.CRNA PATIENT NAME: Nancy Sue DATE: December 28, 2023 TIME: 4:15 PM CSN: [id number] NoteHNO ID: [id number] Author: YADIRA DORADO MD Service: Anesthesiology Author Type: Anesthesiologist Type: Anesthesia Procedure Notes Filed: 12/28/2023 16:25 Note Text: ANESTHESIOLOGY PROCEDURE NOTE PIV General Information Procedure Start Time/Medication Administration: 12/28/2023 3:46 PM Procedure End Time: 12/28/2023 3:46 PM Patient Location: OR Staffing Anesthesiologist: Yadira Dorado MD Performed by: anesthesiologist Preparation Sterility Preparation: hand hygiene performed prior to procedure, surgical cap used, mask used, skin prep agent completely dried prior to procedure Site Prep: Chloraprep Procedure Details Indication: need for IV access Needle Size/Type: 18 gauge angiocath Orientation: Right Location: Hand Imaging Guidance Used: No SIGNATURE: Luisa Beard APRN.CRNA PATIENT NAME: Nancy Sue DATE: December 28, 2023 TIME: 4:15 PM CSN: [id number] NoteHNO ID: [id number] Author: LUISA BEARD APRN.CRNA Service: Anesthesiology Author Type: Nurse Senior Information Security Engineer Type: Anesthesia Procedure Notes Filed: 12/28/2023 16:14 Note Text: ANESTHESIOLOGY PROCEDURE NOTE Airway General Information Procedure Start Time/Medication Administration: 12/28/2023 3:42 PM Procedure End Time: 12/28/2023 3:45 PM Patient location during procedure: OR Patient identity confirmed: arm band and care application development team lead Staffing Anesthesiologist: Yadira Dorado MD Performed by: anesthesiologist Indications and Patient Condition Indications for airway management: anesthesia Preoxygenated: yes anesthesia circuit Patient position: sniffing Method: asleep Difficult Mask: No Airway Accessory: oral airway (90 mm) Final Airway Details Final airway type: endotracheal airway Final Endotracheal Airway: ETT Cuffed: yes Successful intubation technique: direct laryngoscopy Devices used: intubating stylet Endotracheal tube insertion site: oral Blade: Margaret Blade size: #4 ETT size (mm): 7.0 Measured from: lips Measurement (cm): 21 Placement verified by: chest auscultation and capnometry Cormack-Lehane Classification: grade IIb - view of arytenoids or posterior of glottis only Number of attempts at approach: 1 Failed airway: no Unrecognized esophageal intubation: no Airway not difficult Comments Atraumatic Intubation. Dentition and lips remain the same as preop. SIGNATURE: Luisa Beard APRN.CRNA PATIENT NAME: Nacny Sue DATE: December 28, 2023 TIME: 4:14 PM CSN: [id number] History and physical note* Kapil Salazar APRN.WILDFIRE PREVENTION SPECIALIST - 12/19/2023 7:50 AM EDT HISTORY AND PHYSICAL EXAMINATION SERVICE DATE: 12/19/2023 SERVICE TIME: 7:40 AM PRIMARY CARE PHYSICIAN: Justin Buckner MD REASON FOR VISIT: Nancy Sue is a 63 year old female who is scheduled for LAPAROSCOPIC COLECTOMY SIGMOID COLON W/ COLORECTAL ANASTOMOSIS at the request of Dr. Kaley Francois for consultation. My final recommendation will [...] by mouth once daily. Taking Yes omega 1-jtq-jux-fish oil 120-180-500 mg cap Take 500 mg [...] radiology test) CT Chest ABD/PEL-Inject, intravenously, once for1 dose.No IV access, insert saline lock prior [...] both Oral and Rectal, Enteric Tube, Stoma orIndwelling Catheter, Enteric Contrast as designated per enteric contrast guidelines Patient not taking: Reported on 11/13/2023 Ascorbic Lsdn-Noigjwwty-Ixh (EMERGEN-C) 1,000 mg pwep Take 1 Packet by mouth once daily. Pramoxine-Hydrocortisone (ANALPRAM-HC) 1-1 % rectal cream 1 g by RECTAL route two times a day as needed (rectal discomfort). No medication comments found. ALLERGIES Allergen Reactions Yexqfnl-Awj-Aig Red* Other: See Comments, Unknown, Myalgia myalgias COVID VACCINATION STATUS: Fully vaccinated REVIEW OF SYSTEMS: PAIN ASSESSMENT: General: No weight loss, malaise or fevers. Neuro: No history of TIA's, stroke, CREDIT COUNSELOR tumor, impaired sensorium, hemiplegia, paraplegia or quadraplegia. [...] > 1 time per night or hematuria SIGN CARPENTER: Negative for abnormal vaginal bleeding, abnormal vaginal [...] instructions and voices comprehension and compliance. SIGNATURE: Kapil Salazar APRN.CNP PATIENT NAME: Nancy Sue DATE: December 19, 2023 TIME: 7:41 AM documented in this encounterSelect [facility] Instructions* Patient Instructions* Kapil Salazar APRN.CNP - 12/18/2023 7:48 AM EDT PATIENT PREOPERATIVE INSTRUCTIONS Kaley Francois MD has scheduled you for your procedure at this surgery center: [facility]: [phone] --[id number] [address]. Please check in on the1st floor at registration desk 6. Please read [...] with a small sip of water omega 1-wbz-ofi-fish oil 120-180-500 mg cap Stop 7 days [...] Procedures: - YOU MUST HAVE A RESPONSIBLE TRUCK DRIVING INSTRUCTOR TAKE YOU HOME. A PATTERN ASSEMBLER OR CQ DEVELOPER CANNOT BE MADE A RESPONSIBLE TRUCK DRIVING INSTRUCTOR. - We recommend that a responsible person stays with you overnight to take care of you. - You cannot stay in a hotel alone after outpatient surgery. You will not be permitted to have yoursurgery, if you do not have someone to [...] Advance Directive, please fax a copy to [phone] or email to for it to be added to your chart. If you do not have an Advance Directive, you can find the appropriate form and more information at [email or web address]. We recommend that youcomplete the Advance Directive form found on the website and bring it with you the day of your surgery. It can be witnessed and scanned into your chart that day. documented in this encounterSelect Medical [facility]03-20-2024 Miscellaneous Notes* Telephone Encounter - Penelope Moreno, MONET - 11/28/2023 11:42 AM EDT BRENDA/Shasta: Standing CBC order in place. Will need orders for CMP & CEA for her visit on 01/10. Orders pended. Penelope Moreno RN * Telephone Encounter - Jodi Barrow - 11/28/2023 11:39 AM EDT Appointments made/canceled per request. Patient will peanut picker reminder at next appt. Notes in appt. * Telephone Encounter - Penelope Moreno RN - 11/28/2023 11:24 AM EDT Pt is scheduled to have surgery on 12/28/23. Notes it was advised she hold chemotherapy prior to. Dr Wing instructs to cancel pt's treatment on 12/05/23. Would like pt to still come in for labsonly. Would also like pt's CBC checked again on 12/24/23. Will plan to see pt, for follow up, 2 weeks after surgery. Pt notified of the above and agrees. Clerical: Pt will be in for labs only on 12/04. Please cancel her provider and treatment appts. Cancel pump dc on 12/06. CBC on 12/24/23 F/U & labs w/ Dr Wing on 01/11/24. *Pt will peanut picker her appointment reminder when here for labs next week. Penelope Moreno RN documented in this encounterSelect Medical [facility]03-14-2024 Miscellaneous Notes* Telephone Encounter - Kaley Francois MD - 11/22/2023 4:38 PM EDT I updated patient and her regarding tumor board recommendations. I explained to her that the recommendation is to ensure that the retroperitoneal node is due to metastatic colon cancer, especially since she has another primary tumor (NET). The next step at this point is surgical excision ofportocaval or periceliac node for definitive diagnosis. Will plan for combined sigmoidectomy for the primary colon cancer at the same time. I explained this will be a combined case with Dr. Yuan we will plan for December given that she had chemo yesterday. Potential surgery date includes December 27. My office will call patient once the date is finalized. All questions answered. documented in this encounterSelect Medical [facility]03-13-2024 History of Present illness Narrative* Kyrie Villagran RN - 11/21/2023 11:40 AM EDT Confirmed with Dr. Wing he does not want patient to get Venofer today. Tx nurse informed. Kyrie Villagran, RN documented in this encounterSelect Medical [facility]03-13-2024 Instructions* Patient Instructions* Kimi Mccain - 11/21/2023 9:43 AM EDT Cycle 5 FOLFOX today. (FOxTROT JCO 09/2022) x 4 additional (8) cycles - Restage. Restage and consider resection +/- metastectomy vs. continued chemotherapy. Iron infusion today. Hydration on day of disconnect. RTC in 2 weeks for cycle 6. Labs preceding. documented in this encounterSelect Medical Trihealth [facility]03-13-2024 History of Present illness Narrative* Jose Wing MD - 11/21/2023 9:30 AM EDT Images from the original note were not included. NAME: Nancy Sue CLINIC NO.: [id number] DATE OF SERVICE: November 21, 2023 (Dianne) Some elements in this clinic note that are critical to medical decision making have been carefully reviewed and included from a prior clinic note dated: October 24, 2023 (Dianne) Referring Provider: Kaley Francois Additional Clinicians involved in Nancy Sue's care: Dr. Justin Buckner, Dr. 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 systemic therapy. She was diagnosed 05/30/2023 on colonoscopydone for rectal bleeding that started in February 2023. Surprisingly not iron deficient. PET shows mesenteric and retroperitoneal LN's. Most consistent with stage IV disease. 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 Started FOLFOX on 08/29/2023. Cancer Staging Malignant neoplasm of sigmoid colon (HCC) Staging form: Colon and Rectum, AJCC 8th Edition - Clinical stage from 06/29/2023: Stage IVB (cTX, cNX, cM1b) - Signed by Jose Wing MD on 07/20/2023 LN's identified are [...] Mild splenomegaly, increased in size since 06/22/23. Kwhe-al-vfnofsfu abdominal lymphadenopathy, stable. Increased streaky reticulation of [...] known primary, associated with mildly prominent with itfs-ck-uedtneax FDG uptake in upper mesenteric and retroperitoneal [...] measures 1.5 x 1.0 cm, image 36, series6 Additional subcentimeter retroperitoneal and gastrohepatic ligament lymph [...] break from therapy and a trip to [place]. She was thrombocytopenic and mildlyneutropenic at last visit causing a delay. Reviewed [...] is looking forward to a trip to [place] 10/01 - 10/06. Updated Visit, September 12, [...] signs/symptoms of infection. No bleeding or abnormal bruising.Overall, she is doing well and wishes to proceed with treatment as planned. Updated Visit, September 07, 2023: Nancy Sue returns for scheduled follow-up. She received cycle 1 FOLFOX on 08/29/2023. Right after treatment the same day she had developed cold sensitivity. Overall, she tolerated treatment well. She denies any mouth sores. No significant diarrhea. She has not had any further blood in her stoolssince Alexandrea. She remains on 1 oral iron pills [...] follow up. I reviewed her recent PET CTwith them, we should likely plan on chemotherapy as next steps as her disease can be classified as Stage 4. I will bring her case to the tumor board in order to get a broader range of recommendations, in the meantime I will start preparing to start her on chemotherapy. She reports still having somebloody stools, which she feels may have been a little worse lately than in the past. She would liketo have a second opinion in addition to the tumor board recommendations. Her daughter Jennifer works in cardiology. This was a very lengthy and emotional discussion as it was unexpected by us all. Initial Visit, June 29, 2023: Nanyc Sue presents today Hematology and Oncology evaluation. She is a 63 year old female who hadchanges in bowel habits and presumed hemorrhoidal bleeding for 3 months. She underwent colonoscopy and was found to have a recto-sigmoid mass that was not obstructing by Dr Lee. Path consistent withmalignancy. Staging studies incomplete but she does have selwyn-hepatis nodes that are concerning for metastatic disease. Additionally, lung nodules also concerning for metastasis. Continues to have bowel pressure. Rectal bleeding. Here with Leoncio who is a pollution control chemist and getting ready to retire. 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 Brother was recently [...] wounds or petechiae. ALLERGIES: ALLERGIES Allergen Reactions Mmpbilj-Iak-Kcp Red* Other: See Comments, Unknown, Myalgia myalgias MEDICATIONS: Ascorbic Aszu-Xvzhvlrut-Ukd (EMERGEN-C) 1,000 mg pwep^Take 1 Packet by [...] by mouth every 6 hours as needed.^Disp: 100tablet^Rfl: 1 folic acid 1 mg tablet^Take 1 mg by mouth once daily.^Disp: ^Rfl: acetaminophen/diphenhydramine (TYLENOL PM ORAL)^Take 1 Dose by mouth as needed.^Disp: ^Rfl: levothyroxine (SYNTHROID) 50 mcg tablet^Take 50 mcg by mouth once daily.^Disp: ^Rfl: Pramoxine-Hydrocortisone (ANALPRAM-HC) 1-1 % rectal cream^1 g by RECTAL route two times a day as needed (rectal discomfort).^Disp: ^Rfl: omega 9-xww-tic-fish oil 120-180-500 mg cap^Take 500 mg by mouth once daily.^Disp: ^Rfl: iv contrast (will be provided with radiology test)^CT Chest ABD/PEL-Inject, intravenously, once for1 dose.No IV access, insert saline lock prior [...] both Oral and Rectal, Enteric Tube, Stoma orIndwelling Catheter, Enteric Contrast as designated per enteric [...] which included preparing to see the patient, zahs-ff-zdms patient care, completing clinical documentation, performing a medically appropriate examination, counseling and educating the patient/family/caregiver, ordering medications, tests, or procedures, independently interpreting results (not separately reported), and communicating results to the patient/family/caregiver. Jose Wing MD, CPE Hematology and Oncology Services Provided at: [place], [place] Scribe Attestation: This note was scribed by Kimi Mccain on November 21, 2023 under the direction and supervision ofDr. Jose Wing. I attest that all of the information documented is correct to the best of my knowledge. Provider Attestation: I, Jose Wing MD, attest that all information documented by the above scribe is correct, and was supervised by me and under my direction. CC: Dr. Justin Francois documented in this encounterSelect Medical [facility]03-13-2024 History of Present illness Narrative* Eliza Abernathy, ARAMIS - 11/21/2023 9:30 AM EDT Oncology Nutrition Therapy Reassessment RECOMMENDED MALNUTRITION DIAGNOSIS: [...] variety of foods. She tries to focus onhealthier options. She is maintaining weight and staying [...] Resting Metabolic Rate: 1562 Weight Change: n/a Scurry Body Weight: 57kg Estimated kilocalorie needs: 8289-8401 kilocalories determined by 30-35 kcal/kg Estimated protein needs: 57-85 grams determined by 1.0-1.5 g/kg Scurry weight Estimated fluid needs: ~6348-8217 milliliters based on 1 mL per kcal (unless otherwise indicated) Nutrition Focused Physical Exam: Unable to perform exam due to concerns for lack of privacy in treatment area, will re-attempt during reassessment. Potential Signs of Inflammation: chronic condition Allergies: Tzjkidd-Yfg-Ykz Reductase Inhibitors Medications: Current Outpatient Medications Medication Sig Dispense Refill iv contrast (will be provided with radiology test) CT Chest ABD/PEL-Inject, intravenously, once for1 dose.No IV access, insert saline lock prior to the beginning of sedation, infusion, injection of imaging exam. Discontinue saline lock post exam. If Pt. has a central line or IVAD, may access for administration according to line specific nursing protocol. Once exam is complete flush line and de-access according to line specific nursing protocol in the CT contrast administration guidelines link.(Patient not taking: Reported on 11/13/2023) 1 Each 0 enteric contrast (will be provided with radiology test) For CT CHESTABD/PEL W IVCON Routine order Administer, As Directed One Time Only, via Oral, Rectal, both Oral and Rectal, Enteric Tube, Stoma orIndwelling Catheter, Enteric Contrast as designated per enteric contrast guidelines (Patient not taking: Reported on 11/13/2023) 1 Each 0 Ascorbic Enez-Ybscxvjdv-Jvw (EMERGEN-C) 1,000 mg pwep Take 1 Packet [...] a day as needed (rectal discomfort). omega 2-cvv-grl-fish oil 120-180-500 mg cap Take 500 mg by mouth once daily. No current facility-administered medications for this visit. Need for Follow up: will continue to follow Referred by: Dianne CHEN Billing Type: Re-assess/15 min 1 unit Time Spent with Patient: 15 minutes Signed by: Eliza Abernathy MS, RDN, LD documented in this encounterSelect Medical [facility]02-28-2024 History of Present illness Narrative* Gabby Dempsey RN - 11/07/2023 7:45 AM EST Radiology Service Progress Note DATE OF SERVICE: November 07, 2023 TIME: 8:34 AM PATIENT WEIGHT: 221LBS PATIENT IDENTITY VERIFICATION COMPLETED USING TWO (2) STANDARD IDENTIFIERS: Name and Date of confirmed by patient verbally. FALL SCREENING: Has the patient had 2 falls in the last year or 1 fall with injury or currently using an Ambulatory Assistive Device (Walker, Cane, Wheelchair, Crutches, etc.)? No PATIENT GENDER DATA: Female. status: : No status: NO. ALLERGIES: Reviewed and unchanged CONTRAST ALLERGY: No EXAM: CT -CONTRAST INDUCED NEPHROPATHY RISK FACTORS: Patient age > 60 years CREATININE: Creatinine Date Value Ref Range Status 11/07/2023 0.85 0.58 - 0.96 mg/dL Final 10/24/2023 0.84 0.58 - 0.96 mg/dL Final 10/10/2023 0.85 0.58 - 0.96 mg/dL Final Estimated Glomerular Filtration Rate Date Value Ref Range Status 11/07/2023 77 >=60 mL/min/1.73m Final Comment: Estimated Glomerular Filtration Rate (eGFR) is calculated using the 2020 CKD-EPI creatinine equation. This equation utilizes serum creatinine, sex, and age as parameters. The creatinine assay has traceable calibration to isotope dilution- mass spectrometry. Refer to KDIGO guidelines for clinical interpretation. In patients with unstable renal function, e.g. those with acute kidney injury, the eGFRmay not accurately reflect actual GFR. P.O.C.T. RESULTS: POC done: Yes, See Lab Tab November 07, 2023 TREATMENT: No Hydration needed. IV SITE: Ambulatory: A power injectable Mediport was accessed in the Right chest with a 0.75 inch 20 gauge needle. Blood Return, Flushed easily with normal saline, Good Blood Return Post Injection, No Complications, and port accessed via sterile technique pt misael well post scan port flushed with 20 ml NS good blood return noted. IV SITE APPEARANCE: Clean,Dry and Intact SIGNATURE: Gabby Dempsey RN PATIENT NAME: Nancy Sue DATE: November 07, 2023 TIME: 8:34 AM * Penelope Ramos RT(R) - 11/07/2023 7:45 AM EST Radiology Service Progress Note PATIENT NAME: Nancy Sue DATE OF SERVICE: November 07, 2023 TIME: 8:39 AM PATIENT IDENTITY VERIFICATION COMPLETED USING TWO (2) IDENTIFIERS: Name and Date of confirmedby patient verbally. FALL SCREENING: Has the patient had 2 falls in the last year or 1 fall with injury or currently using an Ambulatory Assistive Device (Walker, Cane, Wheelchair, Crutches, etc.)? No PATIENT GENDER DATA: Female. status: : No status: NO. PATIENT RELEVANT IMPLANT DATA REVIEWED: Yes PATIENT PRESENTS WITH AN IMPLANTABLE OR ATTACHED HEEL SCOURER: POWER port RADIOLOGY DEPARTMENT: CT; Exam(s) Completed: Chest Abdomen Pelvis With IV and Oral contrast PERIPHERAL IV DATA: Not applicable SIGNED BY: RT Imani(R) November 07, 2023 8:39 AM POWER port scanned 08/15/2023 documented in this encounterSelect Medical [facility]02-14-2024 Instructions* Patient Instructions* Kimi Mccain - 10/24/2023 9:33 AM EST Cycle 4 FOLFOX today. (Aware of platelets - 81, okay to proceed). (Deon O 09/2022) x 4 cycles - Restage. Restage and consider resection +/- metastectomy vs. continued chemotherapy. Iron infusion today. Hydration on day of disconnect. CT CAP scans in 2 weeks. Follow up with Dr Francois in 3 weeks. RTC in 4 weeks for cycle 5. Labs preceding documented in this encounterSelect Medical [facility]02-14-2024 History of Present illness Narrative* Jose Wing MD - 10/24/2023 9:30 AM EST Images from the original note were not included. NAME: Nancy Sue [facility] NO.: [id number] DATE OF SERVICE: October 24, 2023 (Dianne) Some elements in this clinic note that are critical to medical decision making have been carefully reviewed and included from a prior clinic note dated: October 10, 2023 (Dianne) Referring Provider: Kaley Francois Additional Clinicians involved in Nancy Sue's care: Dr. Justin Buckner, Dr. 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 systemic therapy. She was diagnosed 05/30/2023 on colonoscopydone for rectal bleeding that started in February 2023. Surprisingly not iron deficient. PET shows mesenteric and retroperitoneal LN's. Most consistent with stage IV disease. 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 Started FOLFOX on 08/29/2023. Cancer Staging Malignant neoplasm of sigmoid colon (HCC) Staging form: Colon and Rectum, AJCC 8th Edition - Clinical stage from 06/29/2023: Stage IVB (cTX, cNX, cM1b) - Signed by Jose Wing MD on 07/20/2023 LN's identified are borderline - may be Overstaged. Pulmonary GPS Biopsy of Right lung lesion - Carcinoid. PLAN: Cycle 4 FOLFOX today. (Aware of platelets - 81, okay to proceed). (HeydiOT O 09/2022) x 4 cycles - Restage. Restage [...] cm of the sigmoid colon consistent with knownprimary, associated with mildly prominent with uzex-mc-gghcbrwy FDG uptake in upper mesenteric and retroperitoneal lymphadenopathy. 0.7 cm right lower lobe lung nodule, below PET resolution. 07/06/2023 - CT Pelvis: Irregular circumferential distal sigmoid colonic wall thickening, extendingover a length of 8 cm, compatible with known sigmoid colonic neoplasm. No metastatic disease withinthe pelvis. 06/22/2023 - CT Chest/Abd : Right [...] measures 1.5 x 1.0 cm, image 36, series6 Additional subcentimeter retroperitoneal and gastrohepatic ligament lymph [...] break from therapy and a trip to [place]. She was thrombocytopenic and mildlyneutropenic at last visit causing a delay. Reviewed [...] is looking forward to a trip to [place] 10/01 - 10/06. Updated Visit, September 12, [...] signs/symptoms of infection. No bleeding or abnormal bruising.Overall, she is doing well and wishes to proceed with treatment as planned. Updated Visit, September 07, 2023: Nancy Sue returns for scheduled follow-up. She received cycle 1 FOLFOX on 08/29/2023. Right after treatment the same day she had developed cold sensitivity. Overall, she tolerated treatment well. She denies any mouth sores. No significant diarrhea. She has not had any further [facility] She remains on 1 oral iron pills [...] follow up. I reviewed her recent PET CTwith them, we should likely plan on chemotherapy as next steps as her disease can be classified as Stage 4. I will bring her case to the tumor board in order to get a broader range of recommendations, in the meantime I will start preparing to start her on chemotherapy. She reports still having somebloody stools, which she feels may have been a little worse lately than in the past. She would liketo have a second opinion in addition to the tumor board recommendations. Her daughter Jennifer works in cardiology. This was a very lengthy and emotional discussion as it was unexpected by us all. Initial Visit, June 29, 2023: Nancy Sue presents today Hematology and Oncology evaluation. She is a 63 year old female who hadchanges in bowel habits and presumed hemorrhoidal bleeding for 3 months. She underwent colonoscopy and was found to have a recto-sigmoid mass that was not obstructing by Dr Lee. Path consistent withmalignancy. Staging studies incomplete but she does have selwyn-hepatis nodes that are concerning for metastatic disease. Additionally, lung nodules also concerning for metastasis. Continues to have bowel pressure. Rectal bleeding. Here with Leoncio who is a pollution control chemist and getting ready to retire. 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 REVIEW OF SYSTEMS Per HPI and otherwise negative by full review of organ systems. ECOG PERFORMANCE STATUS: 0 PHYSICAL EXAMINATION: Vitals: BP 175/76 Pulse 76 Temp (Src) 97.8 (Temporal) Resp 16 Ht 5' 4.685 (1.64m) Wt 221lb 5.5 oz (100.4kg) SpO2 97% BMI 37.19 [...] wounds or petechiae. ALLERGIES: ALLERGIES Allergen Reactions Hwndrsh-Nsu-Kll Red* Other: See Comments, Unknown, Myalgia myalgias MEDICATIONS: amoxicillin-clavulanate potassium (AUGMENTIN) 875-125 mg per tablet Take 1 tablet by mouth two times a day for 7 days. Ascorbic Mqxb-Gemuigxmm-Ery (EMERGEN-C) 1,000 mg pwep Take 1 Packet [...] a day as needed (rectal discomfort). omega 4-lhz-kyp-fish oil 120-180-500 mg cap Take 500 mg by mouth once daily. iv contrast (will be provided with radiology test) CT Chest ABD/PEL-Inject, intravenously, once for1 dose.No IV access, insert saline lock prior [...] both Oral and Rectal, Enteric Tube, Stoma orIndwelling Catheter, Enteric Contrast as designated per enteric [...] which included preparing to see the patient, kuil-nf-oreu patient care, completing clinical documentation, performing a medically appropriate examination, counseling and educating the patient/family/caregiver, ordering medications, tests, or procedures, independently interpreting results (not separately reported), and communicating results to the patient/family/caregiver. Jose Wing MD, CPE Hematology and Oncology Services Provided at: [place], [place] Scribe Attestation: This note was scribed by Kimi Mccain on October 24, 2023 under the direction and supervisionof Dr. Jose Wing. I attest that all of the information documented is correct to the best of my knowledge. Provider Attestation: I, Jose Wing MD, attest that all information documented by the above scribe is correct, and was supervised by me and under my direction. CC: Dr. Justin Francois documented in this encounterSelect Medical Trihealth [facility]02-14-2024 Nurse Note* Jyotsna Rose MA - 10/24/2023 9:12 AM EST Patient still has a cough she is still taking antibiotics for. Jyotsna Mendoza MA documented in this encounterSelect Medical Trihealth [facility]02-08-2024 Miscellaneous Notes* Telephone Encounter - Penelope Moreno RN - 10/18/2023 4:10 PM EST Discussed w/ Dr Wing who orders Augmentin 875 mg BID x 7 days. Pt notified. Brenda: RX pended. Penelope Moreno RN * Telephone Encounter - Penelope Moreno RN - 10/18/2023 10:04 AM EST Pt c/o productive cough w/ clear to green sputum. Has been taking Mucinex 12 Hr DM for 2 days now w/ no improvement. Reports chills on Sunday. No fevers. Cough began on Sunday. Requesting an antibiotic. Pt has NKA. What do you advise? Preferred Pharmacy: [facility] [place] Penelope Moreno RN documented in this encounterSelect Medical Trihealth [facility]02-06-2024 Miscellaneous Notes* Telephone Encounter - Jose Wing MD - 10/16/2023 2:17 PM EST Iron was given to her because of her recent GI bleed from her colorectal cancer and based on the iron studies from August 29 - ( T-sat 11% ) so that we could optimize her care anticipating possible surgery. * Telephone Encounter - Penelope Moreno RN - 10/16/2023 1:35 PM EST FYI: Pt's Venofer was denied due to current labs not meeting parameters. Penelope Moreno RN documented in this encounterSelect Medical Trihealth Rehabilitation Hospital2024 History of Present illness Narrative* Tomeka Little RN - 10/12/2023 11:11 AM EST Patient had described bilateral lower extrem discomfort as there almost neuropathic like, it is intermittent. She will monitor and discuss with provider@ Tomeka Little RN documented in this encounterSelect Medical Trihealth [facility] Hospital12-21-2023 Miscellaneous Notes* Telephone Encounter - Jose Wing MD - 08/30/2023 12:29 PM EST Thanks Neel! * Telephone Encounter - Neel Cyr LGC - 08/30/2023 10:04 AM EST Patient name and was confirmed at initiation of discussion. Nancy Sue's Multi-Cancer panel plus preliminary evidence colorectal cancer genes through [facility]as negative for a pathogenic variant. Variant(s) of uncertain significance (VUS) detected: DARRELL (c.7618G>A) and FOCAD (del exons 8-9). A VUS is a genetic variant for which insufficient data exists in order to determine if it is associated with disease (deleterious mutation) or is a normal genetic variant which can occur in the population without disease (benign polymorphism). Please see [facility] message for further discussion. Neel Cyr, MS, [facility] [place] Licensed, Certified Genetic Counselor documented in this encounterSelect Medical Trihealth [facility] Hospital12-20-2023 Instructions* Patient Instructions* Eliza Abernathy RD - 08/29/2023 2:49 PM EST Nutrition [...] Drip Drop, Liquid IV documented in this encounterSelect Medical Trihealth Rehabilitation Hospital12-20-2023 History of Present illness Narrative* Eliza Abernathy RD - 08/29/2023 10:31 AM EST Oncology Nutrition Therapy Initial Assessment RECOMMENDED MALNUTRITION [...] adequate calories/protein and preserving lean muscle mass. Discussedwith patient concerns of prolonged fasting and potential [...] Resting Metabolic Rate: 1571 Weight Change: n/a Scurry Body Weight: 57kg Estimated kilocalorie needs: 4510-1087 kilocalories determined by 30-35 kcal/kg Estimated protein needs: 57-85 grams determined by 1.0-1.5 g/kg Scurry weight Estimated fluid needs: ~7073-8386 milliliters based on 1 mL per kcal (unless otherwise indicated) Nutrition Focused Physical Exam: Unable to perform exam due to potential for patient discomfort (physical/emotional), will re-attempt during reassessment. Potential Signs of Inflammation: chronic condition Allergies: Crestor [Rosuvastatin] and Rbgoxqr-Ewh-Vyk Reductase Inhibitors Medications: Current Outpatient Medications Medication Sig Dispense Refill Ascorbic Lskq-Htzoytsuw-Ngu (EMERGEN-C) 1,000 mg pwep Take 1 Packet [...] a day as needed (rectal discomfort). omega 3-nnr-ksj-fish oil 120-180-500 mg cap Take 500 mg by mouth once daily. No current facility-administered medications for this visit. Facility-Administered Medications Ordered in Other Visits Medication Dose Route Frequency Provider Last Rate Last Admin oxaliplatin 183.6 mg in D5W 576.72 mL (ELOXATIN) 85 mg/m2 (Treatment Plan Recorded) INTRAVENOUS ONCE Jose Wing MD leucovorin 864 mg in D5W 101.2 mL 400 mg/m2 (Treatment Plan Recorded) INTRAVENOUS ONCE Jose Wing MD fluorouracil (ADRUCIL) 5,000 mg in NaCl 0.9% 102 mL in empty bag 2,400 mg/m2 (Treatment Plan Recorded) INTRAVENOUS ONCE Jose Wing MD NaCl 0.9% iv infusion 500-999 mL/hr INTRAVENOUS PRN Jose Wing MD diphenhydrAMINE 50 mg injection (BENADRYL) 50 mg INTRAVENOUS PRN Jose Wing MD hydrocortisone sodium succinate (PF) 100 mg injection (Solu-CORTEF) 100 mg INTRAVENOUS PRN Jose Wing MD EPINEPHrine 1 mg/mL (1 mL) 0.3 mg injection 0.3 mg INTRAMUSCULAR PRN Jose Wing MD sodium chloride 0.9 % (flush) 10-20 mL (BD POSIFLUSH) 10-20 mL INTRAVENOUS PRN Jose Wing MD heparin 100 unit/mL 500 Units injection 5 mL INTRAVENOUS DIRECTED PRN Jose Wing MD sodium chloride 0.9 % (flush) 10-20 mL (BD POSIFLUSH) 10-20 mL INTRAVENOUS DIRECTED PRN Jose Wing MD Need for Follow up: will continue to follow Referred by: Dianne CHEN Billing Type: Initial Assess/15 min 2 units Time Spent with Patient: 30 minutes Signed by: Eliza Abernathy MS, RDN, LD documented in this encounterSelect Medical Trihealth [facility]12-15-2023 Miscellaneous Notes* Telephone Encounter - Penelope Moreno RN - 08/24/2023 12:03 PM EST FYI: Pt had a bronchoscopy w/ biopsy [...] of breath. Pt verbalizes understanding and agrees. Penelope Moreno RN documented in this encounterSelect Medical Trihealth Rehabilitation [facility] NoteHNO ID: [id number] Author: Salbador Robin APRN.TUBE REBUILDER Service: ? Author Type: Nurse Senior Information Security Engineer Type: Anesthesia Procedure Notes Filed: 08/22/2023 8:07 AM Note Text: ANESTHESIOLOGY PROCEDURE NOTE Airway General Information Procedure Start Time/Medication Administration: 08/22/2023 7:55 AM Patient location during procedure: OR Timeout Performed Pre-procedure: timeout performed Consent Obtained: Yes Patient identity confirmed: arm band, care application development team lead and patient Staffing Anesthesiologist: Fern Reynolds MD TUBE REBUILDER: Salbador Robin APRN.TUBE REBUILDER Performed by: anesthesiologist and TUBE REBUILDER Indications and Patient Condition Indications for airway management: anesthesia Preoxygenated: yes anesthesia circuit Patient position: sniffing Method: asleep Cricoid Pressure: No Manual In-Line Stabilization: No Difficult Mask: No Final Airway Details Final airway type: endotracheal airway Final Endotracheal Airway: ETT Cuffed: yes Successful intubation technique: video laryngoscopy Devices used: Nick Endotracheal tube insertion site: oral Blade size: #3 ETT size (mm): 8.5 Measured from: lips Measurement (cm): 20 Placement verified by: chest auscultation and capnometry Cormack-Lehane Classification: grade IIb - view of arytenoids or posterior of glottis only Number of attempts at approach: 1 Airway not difficult SIGNATURE: Salbador Robin APRN.TUBE REBUILDER PATIENT NAME: Nancy Sue DATE: August 22, 2023 TIME: 8:06 AM CSN: [id number] [facility] Patient Name: Nancy Sue Procedure Date: 08/22/2023 6:57 AM Date of : 1960 Admit Type: Outpatient Age: 63 Room: OR 2A Gender: Female Attending MD: Dao Dixon MD, [id number] Procedure: Bronchoscopy Indications: Right lower lobe nodule, Personal history of colon cancer Providers: Dao Dixon MD (Doctor), Sandra Quiroga RN (Assisting Nurse), Daly Zhang Assisting RN orientee Referring MD: Jose Wing (Referring MD) Requesting Physician: Patient Profile: [...] physician, the nurse, the anesthesiologist and the mixer machine feeder in the procedure room. Mental Status Examination: [...] and no secretions. Robotic bronchoscopy utilizing the Novomer robot platform was performed. The CT scan [...] adjustments in targeting were not made. A gpoe-zi-qwfyjh (TIL) spin was performed. Ekmu-ln-dqthhg position was achieved at the end of [...] (less than 5 m (more content not included)...[facility] 08-21-2023 History of Present illness Narrative* Penelope Moreno RN - 08/21/2023 1:38 PM EST ONCOLOGY PATIENT EDUCATION NOTE TOPIC: Chemotherapy, Medications: [...] was provided/discussed including but not limited to: abdominaldiscomfort, anemia, appetite changes, arthralgia, bowel habit changes, [...] patient, which included the importance of reporting anyfever of 100.4F (38.0C) or greater to the healthcare team as noted on the provided wallet card and/or magnet. YES - 4th Axel Information. YES - Patient services information. YES Time Spent: 60 minutes REFERRAL (RECOMMENDATION): Nutrition Penelope Moreno RN * Mesha Sinclair [facility] - 08/21/2023 1:38 PM EST Images from the original note were not included. 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 Drug Interactions: Clinically significant interactions with chemotherapy, immunosuppression, or other standard of caretreatment plan medications anticipated: No. There are no [...] No Current Outpatient Medications Medication Sig Ascorbic Kams-Kwagzceoa-Imy (EMERGEN-C) 1,000 mg pwep Take 1 Packet [...] a day as needed (rectal discomfort). omega 6-pzb-yut-fish oil 120-180-500 mg cap Take 500 mg by mouth once daily. No current facility-administered medications for this visit. I spent 15 time (15 minute increments) with the patient Javad Sinclair RPh Pager: documented in this encounterSelect Medical [facility]12-12-[facility]23 History of Present illness Narrative* Neel Cyr LGC - 08/21/2023 11:17 AM EST [facility] Consultation Note Genetic Counselor: Neel Cyr MS, [facility] Patient: Nancy Sue Patient Name and confirmed at initiation of visit. Appointment occurred with audiovisual communication through FRM Study Course Virtual Visit. I have communicated my name and active licensure. The patient's identity and physical location wereverified at the time of this visit. Either the patient or their legal uniforms sales representative has been informed of the risks and benefits of -- and alternatives to -- treatment through a remote evaluation andconsents to proceed with the evaluation remotely. HIGH LEVEL SUMMARY: The patient's personal and family history is potentially suggestive of a hereditary cancer syndrome. The patient provided informed consent for Multi-Cancer panel plus preliminary evidence colorectal cancer genes through [facility]. Results are expected in 2-3 weeks. IDENTIFICATION AND CHIEF COMPLAINT: Dr. Jose Wing requested a consultation for genetic counseling and risk assessment for Nancy Sue, a 63 year old female, for discussion of her personal and family history of colorectal cancer.She presents to clinic today to discuss the [...] cancer syndrome may help her care providers tailorher medical management. If a mutation is detected, the patient will be referred back to the referring provider and to any additional appropriate care providers to discuss the relevant options. Inheritance of hereditary cancer syndromes was discussed with the patient. If a mutation is not found in the patient, this will decrease the likelihood of a hereditary cancersyndrome as the explanation for the patient's personal and family history of cancer. However, it cannot completely rule out this possibility. Cancer surveillance options would be discussed for the patient according to the appropriate standard National Comprehensive Cancer Network and [place] [employer] guidelines, with consideration of their [...] PALB2, PDGFRA, PHOX2B, PMS2, POLD1, POLE, POT1, ZQOOB8P, PTCH1, PTEN,RAD50, RAD51C, RAD51D, RB1, RECQL4, RET, RUNX1, SDHA, SDHAF2, SDHB, SDHC, SDHD, SMAD4, SMARCA4, SMARCB1, SMARCE1, STK11, SUFU, TERC, TERT, NWEP690, TP53, TSC1, TSC2, VHL, WRN, and WT1. [...] to the presenting phenotype. We discussed that [facility] may contact the patient by text or email regarding billing. The patient should watch for this communication and respond promptly. The patient should contact [facility] directlywith any billing questions (ph. [phone]). Per the patient's request, I will contact her by telephone to discuss these results. A follow up genetic counseling visit will be scheduled if requested. The patient was seen for a total of 30 minutes, greater than 50% of which was spent szfv-gk-atmn counseling. This plan is being carried out under the oversight of Dr. Rafaela Alvarado. This note will also be sent to the referring provider via the electronic medical record. Neel Cyr MS, [facility] Licensed, Certified Genetic Counselor [facility] CC: Dr. Jose Alvarado documented in this encounterSelect Medical Trihealth Rehabilitation Hospital12-12-2023 Miscellaneous Notes* Telephone Encounter - Jyotsna Owen MA - 08/21/2023 10:41 AM EST Patient has an appt on 08/29/23. Would you like labs, if so place orders. Jyotsna Owen MA documented in this encounterSelect Medical Trihealth Rehabilitation Hospital12-05-2023 Miscellaneous Notes* Telephone Encounter - Shasta Carson APRN.CNP - 08/14/2023 12:16 PM EST The following approved medication requests have been transmitted electronically. Requested Prescriptions Signed Prescriptions Disp Refills ondansetron (ZOFRAN) 8 mg tablet 90 tablet 1 Sig: Take 1 tablet by mouth every 8 hours as needed for nausea/vomiting. Authorizing Provider: SHASTA CARSON prochlorperazine (COMPAZINE) 10 mg tablet 100 tablet 1 Sig: Take 1 tablet by mouth every 6 hours as needed. Authorizing Provider: SHASTA CARSON APRN.WILDFIRE PREVENTION SPECIALIST * Telephone Encounter - Penelope Moreno RN - 08/14/2023 11:34 AM EST Pt will be in next week for education (FOLFOX). Scripts for antiemetics pended. Penelope Moreno RN documented in this encounterSelect Medical Trihealth Rehabilitation Hospital12-04-2023 History and physical note * Kapil Salazar APRN.MONTEZ - 08/13/2023 1:10 PM EST HISTORY AND PHYSICAL EXAMINATION SERVICE DATE: 08/13/2023 SERVICE TIME: 1:07 PM PRIMARY CARE PHYSICIAN: Justin Buckner MD REASON FOR VISIT: Nancy Sue [...] cream Refill(s) 0, as directed Taking Yes Higze-5-GPW-EPA-Fish Oil (FISH OIL) 1,000 mg (120 mg-180 [...] found. ALLERGIES Allergen Reactions Crestor [Rosuvastat* Myalgia Nhwjtfp-Wpm-Bli Red* Other: See Comments, Myalgia, Unknown myalgias COVID VACCINATION STATUS: Fully vaccinated REVIEW OF SYSTEMS: PAIN ASSESSMENT: General: No weight loss, malaise or fevers. Neuro: No history of TIA's, stroke, CREDIT COUNSELOR tumor, impaired sensorium, hemiplegia, paraplegia or quadraplegia. [...] > 1 time per night or hematuria SIGN CARPENTER: Negative for abnormal vaginal bleeding, abnormal vaginal discharge. : Denies, No LMP recorded. Patient has had a hysterectomy. Endocrine: Hypothyroidism Hematology: No history of bleeding or clotting disorder. Pt is not taking anti- coagulation or platelet medications. No history of hematological [...] instructions and voices comprehension and compliance. SIGNATURE: Kapil Salazar APRN.CNP PATIENT NAME: Nancy Sue DATE: August 13, 2023 TIME: 1:07 PM documented in this encounterSelect Medical Trihealth Rehabilitation Hospital12-04-2023 History and physical note * Dao Dixon MD - 08/13/2023 10:16 AM EST Interventional Pulmonary Consultation Date of Service: August 13, 2023 Patient: Nancy Sue Medical Record: [id number] Primary Care Physician: Justin Buckner MD Referring Provider: Dianne History of [...] no other significant medical history. 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 That said, the nodule does haveconcern for metastasis, so biopsy is recommended in this setting, namely robotic bronchoscopy. Discussed procedure with patient, and she is agreeable. Colon cancer. Per oncology. Dao Dixon MD Date: August 13, 2023 Time: 10:16 AM documented in this encounterSelect Medical Trihealth Rehabilitation Hospital12-01-2023 Instructions* Patient Instructions* Kapil Salazar APRN.WILDFIRE PREVENTION SPECIALIST - 08/10/2023 11:31 AM EST PATIENT PREOPERATIVE INSTRUCTIONS Dao Dixon MD has scheduled you for your procedure at this surgery center: [facility]: [phone] --[id number] [address]. Please check in on the1st floor at registration desk 6. Please read [...] water Pramoxine-Hydrocortisone (ANALPRAM-HC) 1-1 % rectal cream Zhytd-6-RZS-EPA-Fish Oil (FISH OIL) 1,000 mg (120 mg-180 [...] Procedures: - YOU MUST HAVE A RESPONSIBLE TRUCK DRIVING INSTRUCTOR TAKE YOU HOME. A PATTERN ASSEMBLER OR CQ DEVELOPER CANNOT BE MADE A RESPONSIBLE TRUCK DRIVING INSTRUCTOR. - We recommend that a responsible person stays with you overnight to take care of you. - You cannot stay in a hotel alone after outpatient surgery. You will not be permitted to have yoursurgery, if you do not have someone to [...] Advance Directive, please fax a copy to [phone] or email to for it to be added to your chart. If you do not have an Advance Directive, you can find the appropriate form and more information at [email or web address]. We recommend that youcomplete the Advance Directive form found on the website and bring it with you the day of your surgery. It can be witnessed and scanned into your chart that day. documented in this encounterSelect Medical Trihealth [facility] Hospital12-01-2023 Miscellaneous Notes* Telephone Encounter - Nya Sterling RN - 08/10/2023 9:18 AM EST You are scheduled for a port placement, On 08/15/2023. You are to arrive at 2 pm and Report to [facility]: Enter through [facility]so [address]aney entrance. Proceed to [...] Labs: Lab-work needs to be drawn? No.. Director Cardiology/Transportation: How will you be arriving for your procedure? Private car. You will need a responsible adult to accompany you to and from the procedure. please call [phone] with any questions documented in this [facility]11-17-2023 Miscellaneous Notes* Telephone Encounter - Angel Matos - 07/27/2023 11:56 AM EST Patient states she will talk to Dr. Montalvo about this referral today. Angel Matos * Telephone Encounter - Angel Matos - 07/24/2023 11:42 AM EST Reached out to [facility] for update. I had left her a vm on Sunday to call. I will make 2 more attempts before closing referral. Joann * Telephone Encounter - Angel Matos - 07/20/2023 10:58 AM EST Sent email to [facility] to refer patient to Dr. Ildefonso Santiago at [facility] for second opinion regarding treatment and stage. Angel Matos documented in this [facility]11-16-2023 Miscellaneous Notes* Telephone Encounter - Angel Matos - 07/26/2023 9:32 AM EST Patient will be starting treatment in early August. Referring this patient for a port placement. Thanks [place]o! Angel Matos documented in this [facility]11-16-2023 Miscellaneous Notes* Telephone Encounter - Angel Matos - 07/26/2023 9:30 AM EST Images from the original note were not included. documented in this encounterSelect Medical Trihealth [facility] Hospital11-03-2023 History of Present illness Narrative* Kishan Lee RN - 07/13/2023 8:00 AM EDT Radiology Service Progress Note DATE OF SERVICE: July 13, 2023 TIME: 8:07 AM PATIENT IDENTITY VERIFICATION COMPLETED USING TWO (2) STANDARD IDENTIFIERS: Name and Date of confirmed by patient verbally. FALL SCREENING: Has the patient had 2 falls in the last year or 1 fall with injury or currently using an Ambulatory Assistive Device (Walker, Cane, Wheelchair, Crutches, etc.)? No PATIENT GENDER DATA: Female. status: : No status: NO. EXAM: CT -CONTRAST INDUCED NEPHROPATHY RISK FACTORS: Not applicable CREATININE: Creatinine Date Value Ref Range Status 06/29/2023 0.86 0.58 - 0.96 mg/dL Final 06/05/2023 0.89 0.58 - 0.96 mg/dL Final Estimated Glomerular Filtration Rate Date Value Ref Range Status 06/29/2023 76 >=60 mL/min/1.73m Final Comment: Estimated Glomerular Filtration Rate (eGFR) is calculated using the 2020 CKD-EPI creatinine equation. This equation utilizes serum creatinine, sex, and age as parameters. The creatinine assay has traceable calibration to isotope dilution- mass spectrometry. Refer to KDIGO guidelines for clinical interpretation. In patients with unstable renal function, e.g. those with acute kidney injury, the eGFRmay not accurately reflect actual GFR. P.O.C.T. RESULTS: POC done: Yes, See Lab Tab July 13, 2023 TREATMENT: N/A IV SITE: Ambulatory: A peripheral IV was started in the Right forearm with a Angio cath: 22 gauge. IV SITE APPEARANCE: Clean,Dry and Intact SIGNATURE: Kishan Lee RN PATIENT NAME: Nancy Sue DATE: July 13, 2023 TIME: 8:07 AM * Penelope Ramos RT(R) - 07/13/2023 8:00 AM EDT RADIOLOGY SERVICE PROGRESS NOTE SERVICE DATE: 07/13/2023 SERVICE TIME: 8:44 AM PATIENT IDENTITY VERIFICATION COMPLETED USING TWO (2) STANDARD IDENTIFIERS: Name and Date of confirmed by patient verbally POST EXAM PIV STATUS: Discontinued PROCEDURE TYPE: NM INJECT: PET/CT BODY SCAN. 14.4 mCi F18 FDG. No other medications given.. ADMINISTRATION TIME: 0800 PATIENT DISCHARGED TO: Ambulatory patient, left [place] department area. A Diagnostic radioactive procedure has taken place, with no further precautions necessary other than routine body substance precautions. More information regarding radiation safety can be found usingthis link: [email or web address] 20Diagnostic%20Nuclear%20Medicine%20Procedures.pdf SIGNATURE: LUCIA Diallo) PATIENT NAME: Nancy Sue DATE: July 13, 2023 TIME: 8:44 AM PAGER/CONTACT #: documented in this encounterSelect Medical Trihealth Rehabilitation Hospital10-27-2023 History of Present illness Narrative* Penelope Ramos RT(R) - 07/06/2023 7:45 AM EDT RADIOLOGY SERVICE PROGRESS NOTE SERVICE DATE: 07/06/2023 SERVICE TIME: 7:49 AM PATIENT IDENTITY VERIFICATION COMPLETED USING TWO (2) STANDARD IDENTIFIERS: Name and Date of confirmed by patient verbally FALL SCREENING: Has the patient had 2 falls in the last year or 1 fall with injury or currently using an Ambulatory Assistive Device (Walker, Cane, Wheelchair, Crutches, etc.)? No PATIENT GENDER DATA: .female ALLERGIES: Reviewed and unchanged MEDICATIONS REVIEWED: Not applicable PATIENT RELEVANT IMPLANT DATA REVIEWED: Not Applicable CREATININE: Creatinine Date Value Ref Range Status 06/29/2023 0.86 0.58 - 0.96 mg/dL Final 06/05/2023 0.89 0.58 - 0.96 mg/dL Final Estimated Glomerular Filtration Rate Date Value Ref Range Status 06/29/2023 76 >=60 mL/min/1.73m Final Comment: Estimated Glomerular Filtration Rate (eGFR) is calculated using the 2020 CKD-EPI creatinine equation. This equation utilizes serum creatinine, sex, and age as parameters. The creatinine assay has traceable calibration to isotope dilution- mass spectrometry. Refer to KDIGO guidelines for clinical interpretation. In patients with unstable renal function, e.g. those with acute kidney injury, the eGFRmay not accurately reflect actual GFR. P.O.C.T. RESULTS: N/A July 06, [address] PERFORMED: Yes. RADIOLOGIST NOTIFIED?: No CONTRAST ALLERGY: NO. PREMEDICATED: Not applicable CONTRAST: IV 150 ml IV contrast (300) given DIABETIC PATIENT: Not applicable IV SITE: Ambulatory: A peripheral IV was started in the Right forearm with a Angio cath: 20 gauge. POST EXAM PIV STATUS: Discontinued PROCEDURE TYPE: CT Pelvis with contrast PATIENT DISCHARGED TO: Ambulatory patient, left [place] department area. A Diagnostic radioactive procedure has taken place, with no further precautions necessary other than routine body substance precautions. More information regarding radiation safety can be found usingthis link: [email or web address]%[email or web address]-% 20Diagnostic%20Nuclear%20Medicine%20Procedures.pdf SIGNATURE: LUCIA Diallo) PATIENT NAME: Nancy Sue DATE: July 06, 2023 TIME: 7:49 AM PAGER/CONTACT #: documented in this encounterSelect Medical Trihealth [facility] Hospital10-26-2023 Miscellaneous Notes* Telephone Encounter - Angel Matos - 07/05/2023 1:49 PM EDT Patient has been scheduled with Neel Cyr on August 21. Patient notified. Thanks! Angel Matos * Telephone Encounter - Ai Palomino RN - 07/05/2023 11:00 AM EDT Pt is aware and agreeable to genetic counseling. PSS: Please call to schedule (she is aware it will probably be scheduled into September, as they discussed yesterday.) Ai Palomino RN * Telephone Encounter - Jose Wing MD - 07/04/2023 5:06 PM EDT I would advise she do it - it's an easier process than she may realize. It will not delay treatment and she could do it after treatment has started at anytime. * Telephone Encounter - Ai Palomino RN - 07/04/2023 12:52 PM EDT Pt unable to schedule genetic counseling until September. She is asking if this is necessary for her treatment initiation? Do I really need it? She does not want to delay any treatment and is eager to begin. Brenda: please advise Ai Palomino RN * Telephone Encounter - Ai Palomino RN - 07/04/2023 8:14 AM EDT VM left with Brenda's message: No evidence of iron deficiency as of now - would recommend she start taking folic acid 1 mg daily. I'd like to see her after her PET/CT. Recommend genetic counseling Appointments left in detai. 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 PSS: Please arrange for genetic counseling per Brenda's order placed Ai Palomino RN documented in this encounterSelect Medical Trihealth Rehabilitation Hospital10-23-2023 Miscellaneous Notes* Telephone Encounter - Jessica Deras HUC - 07/02/2023 1:19 PM EDT I called and spoke with Patient and Confirmed appointment time with Dr. Montalvo on 07/23/23 @ 1015am. GERARDO Sinclair * Telephone Encounter - Ai Palomino RN - 07/02/2023 12:56 PM EDT Pt aware and agreeable to no iron infusion at this time. She is scheduled for CT and PET. PSS: Pt needs scheduled for Brenda follow PET appt. the following week for results Ai Palomino RN * Telephone Encounter - Jose Wing MD - 07/02/2023 12:36 PM EDT The only thing I found is that she is just a little bit low on iron but she is not particularly anemic. So we can hold off on replacement for now. I will plan to see her back after PET/CT . That will need to be arranged. * Telephone Encounter - Ai Palomino RN - 07/02/2023 9:51 AM EDT Brenda: Please review Iron labs and verify no need for iron at this time. Ai Palomino RN * Telephone Encounter - Angel Matos - 06/29/2023 12:30 PM EDT Images from the original note were not included. Triage: Please see message from Dr. Wing with lab results. Thanks! Angel Matos documented in this encounterSelect Medical Trihealth Rehabilitation Hospital10-20-2023 Instructions* Patient Instructions* Jose Wing MD - 06/29/2023 12:11 PM EDT Labs today Will discuss with surgery regarding current findings. Keep CT pelvis appointment PET/CT as soon as able. Triage to call results next week - possible iron infusion documented in this encounterSelect Medical Trihealth Rehabilitation Hospital10-20-2023 History of Present illness Narrative* Jose Wing MD - 06/29/2023 11:13 AM EDT NAME: Nancy Sue [facility] NO.: [id number] DATE OF SERVICE: June 29, 2023 (Dianne) Referring Provider: Kaley Francois Consultation requested by Dr. Francois for an opinion regarding Ms. Nancy Sue, and my final recommendations will be communicated back to the requesting physician by way of shared medical record orletter via US mail. 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 Systemic therapy. [...] measures 1.5 x 1.0 cm, image 36, series6 Additional subcentimeter retroperitoneal and gastrohepatic ligament lymph [...] is a 63 year old female who hadchanges in bowel habits and presumed hemorrhoidal bleeding for 3 months. She underwent colonoscopy and was found to have a recto-sigmoid mass that was not obstructing by Dr Lee. Path consistent withmalignancy. Staging studies incomplete but she does have selwyn-hepatis nodes that are concerning for metastatic disease. Additionally, lung nodules also concerning for metastasis. Continues to have bowel pressure. Rectal bleeding. Here with Leoncio who is a pollution control chemist and getting ready to retire. 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 Brother was recently [...] ALLERGIES: ALLERGIES Allergen Reactions Crestor [Rosuvastat* Myalgia Qxxwxqx-Yvp-Ptf Red* Other: See Comments, Myalgia, Unknown myalgias [...] % rectal cream Refill(s) 0, as directed Obnxc-3-STS-EPA-Fish Oil (FISH OIL) 1,000 mg (120 mg-180 [...] which included preparing to see the patient, fuee-zu-teuy patient care, completing clinical documentation, obtaining and/or reviewing separately obtained history, performing a medically appropriate examination, counseling and educating the pat ient/family/caregiver, ordering medications, tests, or procedures, communicating with other HCPs (not separately reported), independently interpreting results (not separately reported), communicatingresults to the patient/family/caregiver, and care coordination (not separately reported). Jose Wing MD, CPE Hematology and Oncology Services Provided at: [place], [place] CC: Justin Francois documented in this encounterSelect [facility] Miscellaneous Notes* Telephone Encounter - Elen Velez RN - 06/25/2023 12:20 PM EDT Called patient to discuss appointments for medical oncology and CT pelvis. She preferred to call Rosy herself to schedule these. Provided her with the phone number. She said if she feels they are scheduled to far in the future, she will let me know and I will try to find earlier appointments for her at another location. documented in this encounterSelect [facility]10-16-2023 Miscellaneous Notes* Telephone Encounter - Kaley Francois MD - 06/25/2023 10:34 AM EDT Updated patient on CT results showing enlarged portocaval nodes and plan to refer to med/onc for evaluation. She will likely need chemo first. Med/onc referral placed. CT Pelvis ordered. Will post-opsurgery that was tentatively planned for 07/06. * Telephone Encounter - Alecia Mesa - 06/25/2023 7:22 AM EDT Patient has questions regarding scheduled surgical procedure. Please call [phone] documented in this encounterSelect [facility]10-13-2023 History of Present illness Narrative* Penelope Ramos, (R) - 06/22/2023 7:30 AM EDT Radiology Service Progress Note PATIENT NAME: Nancy Sue DATE OF SERVICE: June 22, 2023 TIME: 8:01 AM PATIENT IDENTITY VERIFICATION COMPLETED USING TWO (2) IDENTIFIERS: Name and Date of confirmedby patient verbally. FALL SCREENING: Has the patient had 2 falls in the last year or 1 fall with injury or currently using an Ambulatory Assistive Device (Walker, Cane, Wheelchair, Crutches, etc.)? No PATIENT GENDER DATA: Female. status: : No status: NO. PATIENT RELEVANT IMPLANT DATA REVIEWED: Not Applicable RADIOLOGY DEPARTMENT: CT; Exam(s) Completed: Abdomen and Chest With IV and Oral contrast PERIPHERAL IV DATA: Site assessment: Clean,Dry and Intact, Site disposition Discontinued SIGNED BY: RT Imani(R) June 22, 2023 8:01 AM * Kishan Lee RN - 06/22/2023 7:30 AM EDT Radiology Service Progress Note DATE OF SERVICE: June 22, 2023 TIME: 8:32 AM PATIENT WEIGHT: 228LBS PATIENT IDENTITY VERIFICATION COMPLETED USING TWO (2) STANDARD IDENTIFIERS: Name and Date of confirmed by patient verbally. FALL SCREENING: Has the patient had 2 falls in the last year or 1 fall with injury or currently using an Ambulatory Assistive Device (Walker, Cane, Wheelchair, Crutches, etc.)? No PATIENT GENDER DATA: Female. status: : No status: NO. ALLERGIES: Reviewed and unchanged CONTRAST ALLERGY: No EXAM: CT -CONTRAST INDUCED NEPHROPATHY RISK FACTORS: Patient age > 60 years CREATININE: Creatinine Date Value Ref Range Status 06/05/2023 0.89 0.58 - 0.96 mg/dL Final Estimated Glomerular Filtration Rate Date Value Ref Range Status 06/05/2023 73 >=60 mL/min/1.73m Final Comment: Estimated Glomerular Filtration Rate (eGFR) is calculated using the 2020 CKD-EPI creatinine equation. This equation utilizes serum creatinine, sex, and age as parameters. The creatinine assay has traceable calibration to isotope dilution- mass spectrometry. Refer to KDIGO guidelines for clinical interpretation. In patients with unstable renal function, e.g. those with acute kidney injury, the eGFRmay not accurately reflect actual GFR. P.O.C.T. RESULTS: POC done: Yes, See Lab Tab June 22, 2023 TREATMENT: N/A IV SITE: Ambulatory: A peripheral IV was started in the Right antecubital site with a Angio cath: 20 gauge. IV SITE APPEARANCE: Clean,Dry and Intact SIGNATURE: Kishan Lee RN PATIENT NAME: Nancy Sue DATE: June 22, 2023 TIME: 8:32 AM documented in this encounterSelect [facility]10-12-2023 Miscellaneous Notes* Telephone Encounter - Ally Conte RN - 06/21/2023 3:48 PM EDT Call placed to patient re: plan of care. No Answer, left message that Dr Francois will be calling her to discuss plan once imaging is completed- scheduled tomorrow. LM that tentative OR date will be noticed in her My Chart and will call next week to confirm. documented in this encounterSelect [facility]10-02-2023 Miscellaneous Notes* Telephone Encounter - Elen Velez RN - 06/11/2023 3:18 PM EDT Outside pathology 2nd read documented in this encounterSelect [facility]09-29-2023 Nurse Note* Monika Kitchen RN - 06/08/2023 3:04 PM EDT PATIENT EDUCATION TOPIC: PROCEDURE / SURGERY: Procedure/Surgery: [...] PROVIDED TO PATIENT: None REFERRAL (RECOMMENDATION): None * Faviola Berger RN - 06/08/2023 1:24 PM EDT PATIENT EDUCATION TOPIC: PROCEDURE / SURGERY: Procedure/Surgery: [...] None REFERRAL (RECOMMENDATION): None documented in this encounterSelect [facility]09-29-2023 History and physical note * Kaley Francois MD - 06/08/2023 2:00 PM EDT ENDO HISTORY AND PHYSICAL EXAMINATION SHORT FORM [...] Take 50 mcg by mouth once daily. Qwdor-2-VOS-EPA-Fish Oil (FISH OIL) 1,000 mg (120 mg-180 mg) cap Take 4,000 mg by mouth. No current facility-administered medications for this encounter. 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 [facility]* Diagnosis Malignant neoplasm of sigmoid colon (HCC)- Primary Malignant neoplasm of sigmoid colon [facility]* Diagnosis Malignant neoplasm of sigmoid colon (HCC)- Primary Malignant neoplasm of sigmoid colon Iron deficiency anemia due to chronic blood loss Iron deficiency anemia secondary to blood loss (chronic) [facility]* Diagnosis Lung nodule- Primary Solitary pulmonary nodule Rectal cancer (HCC) Malignant neoplasm of rectum Malignant neoplasm of sigmoid colon (HCC) Malignant neoplasm of sigmoid colon Lung nodule Solitary pulmonary nodule [facility]* Diagnosis Pre-op evaluation- Primary Preoperative examination, [...] Solitary pulmonary nodule [facility]* Diagnosis Lung nodule Solitary pulmonary nodule Malignant neoplasm of sigmoid colon (HCC) Malignant neoplasm of sigmoid colon Lung nodule Solitary pulmonary nodule [facility]* Diagnosis Lung nodule Solitary pulmonary nodule Malignant neoplasm of sigmoid colon (HCC) Malignant neoplasm of sigmoid colon Lung nodule Solitary pulmonary nodule [facility]* Diagnosis Malignant neoplasm of sigmoid colon (HCC)- Primary Malignant neoplasm of sigmoid colon Iron deficiency anemia due to chronic blood loss Iron deficiency anemia secondary to blood loss (chronic) Lung nodule Solitary pulmonary nodule [facility]* Diagnosis Malignant neoplasm of sigmoid colon (HCC)- Primary Malignant neoplasm of sigmoid colon Family history of colon cancer Family history of malignant neoplasm of gastrointestinal tract Family history of brain cancer Family history of other specified malignant neoplasm Lung nodule Solitary pulmonary nodule [facility] Diagnosis Malignant neoplasm of sigmoid colon (HCC)- Primary Malignant neoplasm of sigmoid colon [facility]* Diagnosis Malignant neoplasm of sigmoid colon (HCC) Malignant neoplasm of sigmoid colon documented in this encounter [facility] note* Diagnosis Malignant neoplasm of sigmoid colon (HCC)- Primary Malignant neoplasm of sigmoid colon Rectal cancer (HCC) Malignant neoplasm of rectum documented in this encounter [facility] note* Diagnosis Malignant neoplasm of sigmoid colon (HCC) Malignant neoplasm of sigmoid colon [facility]* Diagnosis Other iron deficiency anemia- Primary Malignant neoplasm of sigmoid colon (HCC) Malignant neoplasm of sigmoid colon documented in this encounter [facility] note* Diagnosis 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 Malignant neoplasm of descending colon documented in this encounter [facility] note* Diagnosis Malignant neoplasm of sigmoid colon (HCC)- Primary Malignant neoplasm of sigmoid colon Rectal cancer (HCC) Malignant neoplasm of rectum documented in this encounter [facility] note* Diagnosis Malignant neoplasm of sigmoid colon (HCC) Malignant neoplasm of sigmoid colon [facility]* Diagnosis Malignant neoplasm of sigmoid colon (HCC)- Primary Malignant neoplasm of sigmoid colon documented in this encounter [facility] note* Diagnosis Malignant neoplasm of sigmoid colon (HCC)- Primary Malignant neoplasm of sigmoid colon documented in this encounter [facility] note* Diagnosis Malignant neoplasm of sigmoid colon (HCC)- Primary Malignant neoplasm of sigmoid colon Rectal cancer (HCC) Malignant neoplasm of rectum documented in this encounter [facility] note* Diagnosis Malignant neoplasm of sigmoid colon (HCC)- Primary Malignant neoplasm of sigmoid colon documented in this encounter [facility] note* Diagnosis Pre-op evaluation- Primary Preoperative examination, [...] of lymph nodes documented in this encounter [facility] note* Diagnosis Malignant neoplasm of sigmoid colon (HCC)- Primary Malignant neoplasm of sigmoid colon [facility]* Diagnosis Malignant neoplasm of sigmoid colon (HCC) Malignant neoplasm of sigmoid colon documented in this encounter [facility] note* Diagnosis Malignant neoplasm of sigmoid colon (HCC)- Primary Malignant neoplasm of sigmoid colon Morbid obesity (HCC) Morbid obesity documented in this encounter [facility] note* Diagnosis Follow-up examination after colorectal surgery- Primary Follow-up examination, following other surgery Encounter for ostomy care education Ileostomy present (HCC) Ileostomy status documented in this encounter [facility] note* Diagnosis Attention to ileostomy (HCC)- Primary Attention to ileostomy Preoperative examination Preoperative examination, unspecified documented in this encounter [facility] note* Diagnosis Pre-op evaluation- Primary Preoperative examination, unspecified Hypertension, unspecified type Hyperlipidemia, unspecified hyperlipidemia type Ileostomy present (HCC) Ileostomy status PONV (postoperative nausea and vomiting) Nausea with vomiting Hypothyroidism, unspecified type Other iron deficiency anemia Malignant neoplasm of colon, unspecified part of colon (HCC) Obesity (BMI 30-39.9) Obesity, unspecified Hyponatremia Hyposmolality and/or hyponatremia Attention to ileostomy (HCC) Attention to ileostomy Malignant neoplasm of sigmoid colon (HCC) Malignant neoplasm of sigmoid colon documented in this encounter [facility] note* Diagnosis Attention to ileostomy (HCC) Attention to ileostomy Attention to ileostomy (HCC) Attention to ileostomy Malignant neoplasm of sigmoid colon (HCC) Malignant neoplasm of sigmoid colon documented in this encounter [facility] noteNo assessment information availableRiverview [facility] Institute Work Phone: Evaluation note* Diagnosis Follow-up examination after colorectal surgery- Primary Follow-up examination, following other surgery documented in this encounter [facility] note* Diagnosis Pre-op evaluation- Primary Preoperative examination, unspecified Hyperlipidemia, unspecified hyperlipidemia type Hypertension, unspecified type Class 2 obesity with body mass index (BMI) of 38.0 to 38.9 in adult, unspecified obesity type, unspecified whether serious comorbidity present Hypothyroidism, unspecified type PONV (postoperative nausea and vomiting) Nausea with vomiting Rectal cancer (HCC) Malignant neoplasm of rectum Malignant neoplasm of descending colon (HCC) Malignant neoplasm of descending colon Pre-op evaluation- Primary Preoperative examination, unspecified Other iron deficiency anemia Hypothyroidism, unspecified type Hyperlipidemia, unspecified hyperlipidemia type Hypertension, unspecified type PONV (postoperative nausea and vomiting) Nausea with vomiting Malignant neoplasm of sigmoid colon (HCC) Malignant neoplasm of sigmoid colon Class 2 obesity with body mass index (BMI) of 37.0 to 37.9 in adult, unspecified obesity type, unspecified whether serious comorbidity present documented in this encounter [facility] note* Diagnosis Malignant neoplasm of sigmoid colon (HCC) Malignant neoplasm of sigmoid colon Iron deficiency anemia due to chronic blood loss Iron deficiency anemia secondary to blood loss (chronic) Pre-op evaluation- Primary Preoperative examination, unspecified Hyperlipidemia, unspecified hyperlipidemia type Hypertension, unspecified type Class 2 obesity with body mass index (BMI) of 38.0 to 38.9 in adult, unspecified obesity type, unspecified whether serious comorbidity present Hypothyroidism, unspecified type PONV (postoperative nausea and vomiting) Nausea with vomiting Rectal cancer (HCC) Malignant neoplasm of rectum Pre-op evaluation- Primary Preoperative examination, unspecified Other iron deficiency anemia Hypothyroidism, unspecified type Hyperlipidemia, unspecified hyperlipidemia type Hypertension, unspecified type PONV (postoperative nausea and vomiting) Nausea with vomiting Malignant neoplasm of sigmoid colon (HCC) Malignant neoplasm of sigmoid colon Class 2 obesity with body mass index (BMI) of 37.0 to 37.9 in adult, unspecified obesity type, unspecified whether serious comorbidity present documented in this encounter [facility] note* Diagnosis Rectal cancer (HCC) Malignant neoplasm of rectum Pre-op evaluation- Primary Preoperative examination, unspecified Hyperlipidemia, unspecified hyperlipidemia type Hypertension, unspecified type Class 2 obesity with body mass index (BMI) of 38.0 to 38.9 in adult, unspecified obesity type, unspecified whether serious comorbidity present Hypothyroidism, unspecified type PONV (postoperative nausea and vomiting) Nausea with vomiting Rectal cancer (HCC) Malignant neoplasm of rectum documented in this encounter [facility] note* Diagnosis Malignant neoplasm of sigmoid colon (HCC) Malignant neoplasm of sigmoid colon Pre-op evaluation- Primary Preoperative examination, unspecified Hyperlipidemia, unspecified hyperlipidemia type Hypertension, unspecified type Class 2 obesity with body mass index (BMI) of 38.0 to 38.9 in adult, unspecified obesity type, unspecified whether serious comorbidity present Hypothyroidism, unspecified type PONV (postoperative nausea and vomiting) Nausea with vomiting Rectal cancer (HCC) Malignant neoplasm of rectum Pre-op evaluation- Primary Preoperative examination, unspecified Other iron deficiency anemia Hypothyroidism, unspecified type Hyperlipidemia, unspecified hyperlipidemia type Hypertension, unspecified type PONV (postoperative nausea and vomiting) Nausea with vomiting Malignant neoplasm of sigmoid colon (HCC) Malignant neoplasm of sigmoid colon Class 2 obesity with body mass index (BMI) of 37.0 to 37.9 in adult, unspecified obesity type, unspecified whether serious comorbidity present documented in this encounter [facility] note* Diagnosis Pre-op evaluation- Primary Preoperative examination, unspecified Hyperlipidemia, unspecified hyperlipidemia type Hypertension, unspecified type Class 2 obesity with body mass index (BMI) of 38.0 to 38.9 in adult, unspecified obesity type, unspecified whether serious comorbidity present Hypothyroidism, unspecified type PONV (postoperative nausea and vomiting) Nausea with vomiting Rectal cancer (HCC) Malignant neoplasm of rectum Pre-op evaluation- Primary Preoperative examination, unspecified Other iron deficiency anemia Hypothyroidism, unspecified type Hyperlipidemia, unspecified hyperlipidemia type Hypertension, unspecified type PONV (postoperative nausea and vomiting) Nausea with vomiting Malignant neoplasm of sigmoid colon (HCC) Malignant neoplasm of sigmoid colon Class 2 obesity with body mass index (BMI) of 37.0 to 37.9 in adult, unspecified obesity type, unspecified whether serious comorbidity present History of colon cancer- Primary Personal history of malignant neoplasm of large intestine documented in this encounter [facility] note* Diagnosis Pre-op evaluation- Primary Preoperative examination, unspecified Hyperlipidemia, unspecified hyperlipidemia type Hypertension, unspecified type Class 2 obesity with body mass index (BMI) of 38.0 to 38.9 in adult, unspecified obesity type, unspecified whether serious comorbidity present Hypothyroidism, unspecified type PONV (postoperative nausea and vomiting) Nausea with vomiting Rectal cancer (HCC) Malignant neoplasm of rectum Pre-op evaluation- Primary Preoperative examination, unspecified Other iron deficiency anemia Hypothyroidism, unspecified type Hyperlipidemia, unspecified hyperlipidemia type Hypertension, unspecified type PONV (postoperative nausea and vomiting) Nausea with vomiting Malignant neoplasm of sigmoid colon (HCC) Malignant neoplasm of sigmoid colon Class 2 obesity with body mass index (BMI) of 37.0 to 37.9 in adult, unspecified obesity type, unspecified whether serious comorbidity present Malignant neoplasm of sigmoid colon (HCC) Malignant neoplasm of sigmoid colon documented in this encounter [facility] note* Diagnosis Pre-op evaluation- Primary Preoperative examination, unspecified Hyperlipidemia, unspecified hyperlipidemia type Hypertension, unspecified type Class 2 obesity with body mass index (BMI) of 38.0 to 38.9 in adult, unspecified obesity type, unspecified whether serious comorbidity present Hypothyroidism, unspecified type PONV (postoperative nausea and vomiting) Nausea with vomiting Rectal cancer (HCC) Malignant neoplasm of rectum Pre-op evaluation- Primary Preoperative examination, unspecified Other iron deficiency anemia Hypothyroidism, unspecified type Hyperlipidemia, unspecified hyperlipidemia type Hypertension, unspecified type PONV (postoperative nausea and vomiting) Nausea with vomiting Malignant neoplasm of sigmoid colon (HCC) Malignant neoplasm of sigmoid colon Class 2 obesity with body mass index (BMI) of 37.0 to 37.9 in adult, unspecified obesity type, unspecified whether serious comorbidity present Malignant neoplasm of sigmoid colon (HCC)- Primary Malignant neoplasm of sigmoid colon documented in this encounter [facility] note* Diagnosis Pre-op evaluation- Primary Preoperative examination, unspecified Hyperlipidemia, unspecified hyperlipidemia type Hypertension, unspecified type Class 2 obesity with body mass index (BMI) of 38.0 to 38.9 in adult, unspecified obesity type, unspecified whether serious comorbidity present Hypothyroidism, unspecified type PONV (postoperative nausea and vomiting) Nausea with vomiting Rectal cancer (HCC) Malignant neoplasm of rectum Pre-op evaluation- Primary Preoperative examination, unspecified Other iron deficiency anemia Hypothyroidism, unspecified type Hyperlipidemia, unspecified hyperlipidemia type Hypertension, unspecified type PONV (postoperative nausea and vomiting) Nausea with vomiting Malignant neoplasm of sigmoid colon (HCC) Malignant neoplasm of sigmoid colon Class 2 obesity with body mass index (BMI) of 37.0 to 37.9 in adult, unspecified obesity type, unspecified whether serious comorbidity present History of colon cancer Personal history of malignant neoplasm of large intestine documented in this encounter [facility] note* Diagnosis Pre-op evaluation- Primary Preoperative examination, unspecified Hyperlipidemia, unspecified hyperlipidemia type Hypertension, unspecified type Class 2 obesity with body mass index (BMI) of 38.0 to 38.9 in adult, unspecified obesity type, unspecified whether serious comorbidity present Hypothyroidism, unspecified type PONV (postoperative nausea and vomiting) Nausea with vomiting Rectal cancer (HCC) Malignant neoplasm of rectum Pre-op evaluation- Primary Preoperative examination, unspecified Other iron deficiency anemia Hypothyroidism, unspecified type Hyperlipidemia, unspecified hyperlipidemia type Hypertension, unspecified type PONV (postoperative nausea and vomiting) Nausea with vomiting Malignant neoplasm of sigmoid colon (HCC) Malignant neoplasm of sigmoid colon Class 2 obesity with body mass index (BMI) of 37.0 to 37.9 in adult, unspecified obesity type, unspecified whether serious comorbidity present Malignant neoplasm of sigmoid colon (HCC) Malignant neoplasm of sigmoid colon documented in this encounter [facility] note* Diagnosis Pre-op evaluation- Primary Preoperative examination, unspecified Hyperlipidemia, unspecified hyperlipidemia type Hypertension, unspecified type Class 2 obesity with body mass index (BMI) of 38.0 to 38.9 in adult, unspecified obesity type, unspecified whether serious comorbidity present Hypothyroidism, unspecified type PONV (postoperative nausea and vomiting) Nausea with vomiting Rectal cancer (HCC) Malignant neoplasm of rectum Pre-op evaluation- Primary Preoperative examination, unspecified Other iron deficiency anemia Hypothyroidism, unspecified type Hyperlipidemia, unspecified hyperlipidemia type Hypertension, unspecified type PONV (postoperative nausea and vomiting) Nausea with vomiting Malignant neoplasm of sigmoid colon (HCC) Malignant neoplasm of sigmoid colon Class 2 obesity with body mass index (BMI) of 37.0 to 37.9 in adult, unspecified obesity type, unspecified whether serious comorbidity present Malignant neoplasm of sigmoid colon (HCC)- Primary Malignant neoplasm of sigmoid colon Thrombocytopenia (HCC) Thrombocytopenia, unspecified Fatty liver Other chronic nonalcoholic liver disease documented in this encounter [facility] note* Diagnosis Pre-op evaluation- Primary Preoperative examination, unspecified Hyperlipidemia, unspecified hyperlipidemia type Hypertension, unspecified type Class 2 obesity with body mass index (BMI) of 38.0 to 38.9 in adult, unspecified obesity type, unspecified whether serious comorbidity present Hypothyroidism, unspecified type PONV (postoperative nausea and vomiting) Nausea with vomiting Rectal cancer (HCC) Malignant neoplasm of rectum Pre-op evaluation- Primary Preoperative examination, unspecified Other iron deficiency anemia Hypothyroidism, unspecified type Hyperlipidemia, unspecified hyperlipidemia type Hypertension, unspecified type PONV (postoperative nausea and vomiting) Nausea with vomiting Malignant neoplasm of sigmoid colon (HCC) Malignant neoplasm of sigmoid colon Class 2 obesity with body mass index (BMI) of 37.0 to 37.9 in adult, unspecified obesity type, unspecified whether serious comorbidity present Malignant neoplasm of sigmoid colon (HCC) Malignant neoplasm of sigmoid colon Thrombocytopenia Thrombocytopenia, unspecified Fatty liver Other chronic nonalcoholic liver disease documented in this encounter [facility] note* Diagnosis Pre-op evaluation- Primary Preoperative examination, unspecified Hyperlipidemia, unspecified hyperlipidemia type Hypertension, unspecified type Class 2 obesity with body mass index (BMI) of 38.0 to 38.9 in adult, unspecified obesity type, unspecified whether serious comorbidity present Hypothyroidism, unspecified type PONV (postoperative nausea and vomiting) Nausea with vomiting Rectal cancer (HCC) Malignant neoplasm of rectum Pre-op evaluation- Primary Preoperative examination, unspecified Other iron deficiency anemia Hypothyroidism, unspecified type Hyperlipidemia, unspecified hyperlipidemia type Hypertension, unspecified type PONV (postoperative nausea and vomiting) Nausea with vomiting Malignant neoplasm of sigmoid colon (HCC) Malignant neoplasm of sigmoid colon Class 2 obesity with body mass index (BMI) of 37.0 to 37.9 in adult, unspecified obesity type, unspecified whether serious comorbidity present Malignant neoplasm of rectum (HCC)- Primary Malignant neoplasm of rectum documented in this encounter [facility] note* Diagnosis Pre-op evaluation- Primary Preoperative examination, unspecified Hyperlipidemia, unspecified hyperlipidemia type Hypertension, unspecified type Class 2 obesity with body mass index (BMI) of 38.0 to 38.9 in adult, unspecified obesity type, unspecified whether serious comorbidity present Hypothyroidism, unspecified type PONV (postoperative nausea and vomiting) Nausea with vomiting Rectal cancer (HCC) Malignant neoplasm of rectum Pre-op evaluation- Primary Preoperative examination, unspecified Other iron deficiency anemia Hypothyroidism, unspecified type Hyperlipidemia, unspecified hyperlipidemia type Hypertension, unspecified type PONV (postoperative nausea and vomiting) Nausea with vomiting Malignant neoplasm of sigmoid colon (HCC) Malignant neoplasm of sigmoid colon Class 2 obesity with body mass index (BMI) of 37.0 to 37.9 in adult, unspecified obesity type, unspecified whether serious comorbidity present Malignant neoplasm of rectum (HCC)- Primary Malignant neoplasm of rectum Malignant neoplasm of sigmoid colon (HCC) Malignant neoplasm of sigmoid colon documented in this encounter [facility] Discharge instructions No data available for this section General Surgery Be[place]. Progress note No data available for this section General Surgery [place] Reason for referral (narrative)* Outpatient Procedure (Routine) - Closed Specialty Diagnoses / Procedures Referred By Contac t Referred To Contact [facility] Diagnoses Rectal cancer (HCC) Procedures SIGMOIDOSCOPY SIGMOIDOSCOPY FLX DX W/COLLJ SPEC BR/[place] [address] [place] [address] [facility] [address] [place] [address] Referral ID Status Reason Start Date Expiration Date V isits Requested Visits Authorized [id number] Closed Auto-Generate d Referral 06/05/2023 06/05/2024 1 1 [facility] for referral (narrative)* Outpatient Procedure (Routine) - Closed Specialty Diagnoses / Procedures Referred By Contac t Referred To [facility] Diagnoses Lung nodule Procedures ECG COMPLETE ECG ROUTINE ECG W/LEAST 12 LDS W/I&R Dao Dixon MD [address] [place] [address] [facility] [place] [address] Referral ID Status Reason Start Date Expiration Date V isits Requested Visits Authorized [id number] Closed Auto-Generate d Referral 07/26/2023 07/25/2024 1 1 [facility] for referral (narrative)* Diagnostic Procedure Only (Routine) - Pending Review Specialty Diagnoses / Procedures Referred By Contac t Referred To Contact XR IMAGING Diagnoses Attention to ileostomy (HCC) Procedures XR COLON SINGLE CONTRAST RADIOLOGIC EXAM COLON [place] [address] [place] [address] Xr Imaging [facility] Referral ID Status Reason Start Date Expiration Date Visits Requested Visits Authorized [id number] Pending Review Auto-Generat ed Referral 01/24/2024 02/22/2025 1 1 * Outpatient Procedure (Routine) - Pending Review Specialty Diagnoses / Procedures Referred By Contac t Referred To Contact [facility] Diagnoses Attention to ileostomy (HCC) Procedures SIGMOIDOSCOPY SIGMOIDOSCOPY FLX DX W/COLLJ SPEC BR/[place] [address] [place] [id number] [facility] [place] [address] [place] [address] Referral ID Status Reason Start Date Expiration Date Visits Requested Visits Authorized [id number] Pending Review Auto-Generat ed Referral 01/24/2024 01/23/2025 1 1 [facility] for referral (narrative)* Diagnostic Procedure Only (Routine) - Closed Specialty Diagnoses / Procedures Referred By Lupillo t Referred To Contact XR IMAGING Diagnoses Attention to ileostomy (HCC) Procedures XR COLON SINGLE CONTRAST RADIOLOGIC EXAM COLON [place] [address] [place] [address] Xr Imaging [place] [address] Referral ID Status Reason Start Date Expiration Date V isits Requested Visits Authorized [id number] Closed Auto-Generate d Referral 01/24/2024 02/22/2025 1 1 [facility] for referral (narrative)* Diagnostic Procedure Only (Routine) - Closed Specialty Diagnoses / Procedures Referred By Lupillo t Referred To Contact [facility]LECULAR & FUN[facility]AL [facility] Diagnoses Malignant neoplasm of sigmoid colon (HCC) Iron deficiency anemia due to chronic blood loss Procedures NM PET/CT SKULL-THIGH INITIAL PET IMAGING CT ATTENUATION SKULL BASE MID-THIGH Jose Wing MD [address] [place] [address] [place] [address] [facility] [address] [place] [address] Referral ID Status Reason Start Date Expiration Date V isits Requested Visits Authorized [id number] Closed Auto-Generate d Referral 07/13/2023 07/13/2023 1 1 [facility] for referral (narrative)* Outpatient Procedure (Routine) - Authorized Specialty Diagnoses / Procedures Referred By Lupillo t Referred To Contact [facility] Diagnoses History of colon cancer Procedures COLONOSCOPY SCREENING COLONOSCOPY FLX DX W/COLLJ [place] [address] [place] [address] [facility] [address] [place] [address] Referral ID Status Reason Start Date Expiration Date Visits Requested Visits Authorized [id number] Authorized Auto-Generat ed Referral 06/19/2025 1 1 [facility] for referral (narrative)* Outpatient Procedure (Routine) - Closed Specialty Diagnoses / Procedures Referred By Contac t Referred To Contact [facility] Diagnoses History of colon cancer Procedures COLONOSCOPY SCREENING COLONOSCOPY FLX DX W/[place] [address] [place] [address] [facility] [address] [address] Referral ID Status Reason Start Date Expiration Date V isits Requested Visits Authorized [id number] Closed Auto-Generate d Referral 06/19/2024 06/19/2025 1 1 [facility] for referral (narrative)No reason for referral information [facility] Phone: [facility] Narrative* Outpatient Procedure (Routine) - Closed Specialty Diagnoses / Procedures Referred By Contac t Referred To Contact [facility] Diagnoses Rectal cancer (HCC) Procedures SIGMOIDOSCOPY SIGMOIDOSCOPY FLX DX W/COLLJ SPEC BR/[place] [address] [place] [address] [facility] [place] [address] [place] [address] Referral ID Status Reason Start Date Expiration Date V isits Requested Visits Authorized [id number] Closed Auto-Generate d Referral 06/05/2023 06/05/2024 1 1 [facility] for visit Narrative* Outpatient Procedure (Routine) - Closed Specialty Diagnoses / Procedures Referred By Contac t Referred To [facility] Diagnoses Lung nodule Procedures ECG COMPLETE ECG ROUTINE ECG W/LEAST 12 LDS W/I&R Dao Dixon MD [address] [place] [address] [facility] [place] [address] [place], [place] [id number] Referral ID Status Reason Start Date Expiration Date V isits Requested Visits Authorized [id number] Closed Auto-Generate d Referral 07/26/2023 07/25/2024 1 1 [facility] for visit Narrative* Diagnostic Procedure Only (Routine) - Closed Specialty Diagnoses / Procedures Referred By Contac t Referred To Contact XR IMAGING Diagnoses Attention to ileostomy (HCC) Procedures XR COLON SINGLE CONTRAST RADIOLOGIC EXAM COLON [place] [address] [address] [place] [phone] Xr Imaging [place] [address] Referral ID Status Reason Start Date Expiration Date V isits Requested Visits Authorized [id number] Closed Auto-Generate d Referral 01/24/2024 02/22/2025 1 1 [facility] for visit Narrative* Outpatient Procedure (Routine) - Closed Specialty Diagnoses / Procedures Referred By Contac t Referred To Contact [facility] Diagnoses History of colon cancer Procedures COLONOSCOPY SCREENING COLONOSCOPY FLX DX W/COLLJ [place] [address] [place] [address] [facility] [address] [place] [address] Referral ID Status Reason Start Date Expiration Date V isits Requested Visits Authorized [id number] Closed Auto-Generate d Referral 06/19/2024 06/19/2025 1 1 [facility] Summary Purpose Family History No Family History Records Found Relationship Condition Age at Onset Recorded Date/T paulo mother Cerebrovascular accident (CVA) Unknown father Heart disease Unknown Advance Directives No Advanced Directives Records Found Advance Directive Response Recorded Date/ Time Advance Directives No January 10, 2024 1:54pm Reason for Referral Specialty Diagnoses / Procedures Referred By Lupillo t Referred To Contact CT IMAGING Diagnoses Rectal cancer (HCC) Procedures CT ABDOMEN W IVCON [place] ABDOMEN W/[place] [address] [place] [address] [place] [address] Referral ID Status Reason Start Date Expiration Date V isits Requested Visits Authorized [id number] Closed Auto-Generate d Referral 06/22/2023 07/23/2023 1 1 Specialty Diagnoses / Procedures Referred By Contac t Referred To Contact CT IMAGING Diagnoses Rectal cancer (HCC) Procedures CT CHEST W IVCON DIAGNOSTIC COMPUTED TOMOGRAPHY THORAX W/[place] [address] [place] [address] [place] [facility] Referral ID Status Reason Start Date Expiration Date V isits Requested Visits Authorized [id number] Closed Auto-Generate d Referral 06/22/2023 07/23/2023 1 1 Specialty Diagnoses / Procedures Referred By Contac t Referred To Contact CT IMAGING Diagnoses Malignant neoplasm of descending colon (HCC) Procedures CT CHEST W IVCON DIAGNOSTIC COMPUTED TOMOGRAPHY THORAX W/CONTRAST Jose Wing MD [address] [facility] [address] [place] [phone] Ct Imaging [place] [address] Referral ID Status Reason Start Date Expiration Date V isits Requested Visits Authorized [id number] Open Auto-Generate d Referral 11/07/2023 11/22/2024 1 1 Specialty Diagnoses / Procedures Referred By Contac t Referred To Contact CT IMAGING Diagnoses Malignant neoplasm of descending colon (HCC) Procedures CT ABD/PEL W IVCON CT ABD & PELVIS W/CONTRAST Jose Wing MD [address] [facility] [place] [address] Ct Imaging [place] [address] Referral ID Status Reason Start Date Expiration Date V isits Requested Visits Authorized [id number] Open Auto-Generate d Referral 11/07/2023 11/22/2024 1 1 Specialty Diagnoses / Procedures Referred By Contac t Referred To Contact CT IMAGING Diagnoses Lung nodule Procedures CT CHEST WO IVCON DIAGNOSTIC COMPUTED TOMOGRAPHY THORAX W/O Dao Wilson MD [address] [place] [address] [place] [address] Referral ID Status Reason Start Date Expiration Date V isits Requested Visits Authorized [id number] Closed Auto-Generate d Referral 08/01/2023 08/31/2023 1 1 Specialty Diagnoses / Procedures Referred By Lupillo aquino Referred To Contact Diagnoses Malignant neoplasm of sigmoid colon (HCC) Procedures CONSULT TO MEDICAL GENETICS - CANCER MEDICAL GENETICS COUNSELING EACH 30 MINUTES Jose Wing MD [address] [facility] [place] [address] [facility] [address] [place] [address] Referral ID Status Reason Start Date Expiration Date Visits Requested Visits Authorized [id number] Pending Review PCP Requested Referral Auto-Generate d Referral 07/02/2024 1 1 Specialty Diagnoses / Procedures Referred By Lupillo aquino Referred To Contact [facility] Diagnoses Malignant neoplasm of sigmoid colon (HCC) Iron deficiency anemia due to chronic blood loss Procedures NM PET/CT SKULL-THIGH INITIAL PET IMAGING CT ATTENUATION SKULL BASE MID-THIGH Jose Wing MD [address] [place] [address] [place] [address] [facility] [address] [place] [address] Referral ID Status Reason Start Date Expiration Date V isits Requested Visits Authorized [id number] Open Auto-Generate d Referral 06/29/2023 07/28/2024 1 1 Chief Complaint and Reason for Visit Chief Complaint Admit Date speech and balance issues April 10 3:02pm Reason for Visit Admit Date History of colon cancer April 10, 2025 3:02pm TIA (transient ischemic attack) April 102024 3:02pm Chief Complaint Ileostomy complicati ons Reason for Visit Admit Date TIA (transient ischemic attack) April 102024 3:02pm Additional Source Comments INFORMATION SOURCE (unrecogn ized section and content) DATE CREATED AUTHOR 12/03/2022 [facility] DATE CREATED AUTHOR AUTHOR'S ORGANIZ ATION 02/01/2024 [facility] DATE CREATED AUTHOR AUTHOR'S ORGANIZ ATION 02/05/2024 [facility] DATE CREATED AUTHOR AUTHOR'S ORGANIZ ATION 08/08/2024 [facility] DATE CREATED AUTHOR AUTHOR'S ORGANIZ ATION 02/21/2025 [facility] DATE CREATED AUTHOR AUTHOR'S ORGANIZ ATION 05/08/2025 [facility] DATE CREATED AUTHOR AUTHOR'S ORGANIZ ATION 05/27/2025 [facility] DATE CREATED AUTHOR AUTHOR'S ORGANIZ ATION 05/28/2025 [facility] Patient Care team informatio n (unrecognized section and content) Team Status: Active Member Role Status Dates Justin Bukcner MD Primary Care Provider Active Team Status: Active Member Role Status Dates Justin Buckner MD Primary Care Provider Active Start: April 10, 2025 Jairo Cuenca PA-C Emergency Provider Active Start: April 10, 2025 Simba Mulligan MD Admit Provider Active Start: April 10, 2025 Simba Mulligan MD Attending Provider Active Start: April 10, 2025 Information Analyst Relationship Specialty Start Date End Date Justin Buckner MD [address] [place] [address] PCP - General Family Medicine 06/22/23 Information Analyst Relationship Specialty Start Date End Date Justin Buckner MD [address] [place] [address] PCP - General Family Medicine 06/22/23 Information Analyst Relationship Specialty Start Date End Date Justin Buckner MD [address] [place] [address] PCP - General Family Medicine 06/22/23 Information Analyst Relationship Specialty Start Date End Date Justin Buckner MD [address] [place] [address] PCP - General Family Medicine 06/22/23 Information Analyst Relationship Specialty Start Date End Date Justin Buckner MD [address] [place] [address] PCP - General Family Medicine 06/22/23 Information Analyst Relationship Specialty Start Date End Date Justin Buckner MD [address] [place] [facility] [address] PCP - General Family Medicine 06/22/23 Information Analyst Relationship Specialty Start Date End Date Justin Buckner MD [address] [place] [facility] [address] PCP - General Family Medicine 06/22/23 Information Analyst Relationship Specialty Start Date End Date Justin Buckner MD [address] [place] [facility] [address] PCP - General Family Medicine 06/22/23 Information Analyst Relationship Specialty Start Date End Date Justin Buckner MD [address] [place] [facility] [address] PCP - General Family Medicine 06/22/23 Information Analyst Relationship Specialty Start Date End Date Justin Buckner MD [address] [place] [facility] [address] PCP - General Family Medicine 06/22/23 Information Analyst Relationship Specialty Start Date End Date Justin Buckner MD [address] [place] [facility] [address] PCP - General Family Medicine 06/22/23 Information Analyst Relationship Specialty Start Date End Date Justin Buckner MD [address] [place] [facility] [address] PCP - General Family Medicine 06/22/23 Jose Wing MD [address] [facility] [place] [address] Physician Hematology/Oncology 08/14/23 Shasta Carson, COMMUNITY SERVICE COORDINATOR.WILDFIRE PREVENTION SPECIALIST [address] [facility] [place] [address] Nurse Practitioner Hematology/Oncology 08/14/23 Penelope Moreno, MONET [address] [facility] [place] [address] Specialty 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 Hematology/Oncology 08/14/23 Information Analyst Relationship Specialty Start Date End Date Justin Buckner MD [address] [place] [address] PCP - General Family Medicine 06/22/23 Jose Wing MD [address] [facility] [address] Physician Hematology/Oncology 08/14/23 Shasta Carson, COMMUNITY SERVICE COORDINATOR.WILDFIRE PREVENTION SPECIALIST [address] [facility] [address] Nurse Practitioner Hematology/Oncology 08/14/23 Penelope Moreno, RN [address] [facility] [place] [address] Specialty 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 Hematology/Oncology 08/14/23 Information Analyst Relationship Specialty Start Date End Date Justin Buckner MD [address] [place] [address] PCP - General Family Medicine 06/22/23 Jose Wing MD [address] [facility] [place] [address] Physician Hematology/Oncology 08/14/23 Shasta Carson, COMMUNITY SERVICE COORDINATOR.WILDFIRE PREVENTION SPECIALIST [address] [facility] [place] [address] Nurse Practitioner Hematology/Oncology 08/14/23 Penelope Moreno, MONET [address] [facility] [place] [address] Specialty 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 Hematology/Oncology 08/14/23 Information Analyst Relationship Specialty Start Date End Date Justin Buckner MD [address] [place] [address] PCP - General Family Medicine 06/22/23 Jose Wing MD [address] [facility] [address] Physician Hematology/Oncology 08/14/23 Shasta Carson, COMMUNITY SERVICE COORDINATOR.WILDFIRE PREVENTION SPECIALIST [address] [facility] [address] Nurse Practitioner Hematology/Oncology 08/14/23 Penelope Moreno RN [address] [facility] [place] [address] Specialty 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 Hematology/Oncology 08/14/23 Information Analyst Relationship Specialty Start Date End Date Justin Buckner MD [address] [place] [address] PCP - General Family Medicine 06/22/23 Jose Wing MD [address] [facility] [address] Physician Hematology/Oncology 08/14/23 Shasta Carson, COMMUNITY SERVICE COORDINATOR.WILDFIRE PREVENTION SPECIALIST [address] [facility] [address] Nurse Practitioner Hematology/Oncology 08/14/23 Penelope Moreno, MONET [address] [facility] [address] Specialty 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 Hematology/Oncology 08/14/[address] [facility] [address] Registered Dietitian Nutrition 08/29/23 Information Analyst Relationship Specialty Start Date End Date Justin Buckner MD [address] [place] [address] PCP - General Family Medicine 06/22/23 Jose Wing MD [address] [facility] [address] Physician Hematology/Oncology 08/14/23 Shasta Carson, COMMUNITY SERVICE COORDINATOR.WILDFIRE PREVENTION SPECIALIST [address] [facility] [address] Nurse Practitioner Hematology/Oncology 08/14/23 Penelope Moreno, MONET [address] [facility] [address] Specialty 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 Hematology/Oncology 08/14/[address] [facility] [address] Registered Dietitian Nutrition 08/29/23 Information Analyst Relationship Specialty Start Date End Date Justin Buckner MD [address] [place] [address] PCP - General Family Medicine 06/22/23 Jose Wing MD [address] [place] [address] [place] [address] Physician Hematology/Oncology 08/14/23 Shasta Carson, COMMUNITY SERVICE COORDINATOR.WILDFIRE PREVENTION SPECIALIST [address] [facility] [address] Nurse Practitioner Hematology/Oncology 08/14/23 Penelope Moreno, MONET [address] [facility] [address] Specialty 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 Hematology/Oncology 08/14/[address] [place] [address] [place] [address] Registered Dietitian Nutrition 08/29/23 Information Analyst Relationship Specialty Start Date End Date Justin Buckner MD [address] [place] [address] PCP - General Family Medicine 06/22/23 Jose Wing MD [address] [place] [address] [place] [address] Physician Hematology/Oncology 08/14/23 Shasta Carson, COMMUNITY SERVICE COORDINATOR.WILDFIRE PREVENTION SPECIALIST [address] [facility] [address] Nurse Practitioner Hematology/Oncology 08/14/23 Penelope Moreno, RN [address] [facility] [address] Specialty 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 Hematology/Oncology 08/14/[address] [facility] [address] Registered Dietitian Nutrition 08/29/23 Information Analyst Relationship Specialty Start Date End Date Justin Buckner MD [address] [place] [facility] [address] PCP - General Family Medicine 06/22/23 Jose Wing MD [address] [facility] [place] [address] Physician Hematology/Oncology 08/14/23 Shasta Carson, COMMUNITY SERVICE COORDINATOR.WILDFIRE PREVENTION SPECIALIST [address] [facility] [place] [address] Nurse Practitioner Hematology/Oncology 08/14/23 Penelope Moreno, RN [address] [facility] [address] Specialty 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 Hematology/Oncology 08/14/[address] [place] [address] [place] [address] Registered Dietitian Nutrition 08/29/23 Information Analyst Relationship Specialty Start Date End Date Justin Buckner MD [address] [place] [facility] [address] PCP - General Family Medicine 06/22/23 Jose Wing MD [address] [facility] [place] [address] Physician Hematology/Oncology 08/14/23 Shasta Carson, COMMUNITY SERVICE COORDINATOR.WILDFIRE PREVENTION SPECIALIST [address] [facility] [place] [address] Nurse Practitioner Hematology/Oncology 08/14/23 Penelope Moreno, MONET [address] [facility] [place] [address] Specialty 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 Hematology/Oncology 08/14/[address] [facility] [address] Registered Dietitian Nutrition 08/29/23 Information Analyst Relationship Specialty Start Date End Date Justin Buckner MD [address] [place] [facility] [address] PCP - General Family Medicine 06/22/23 Jose Wing MD [address] [facility] [facility] [address] Physician Hematology/Oncology 08/14/23 Shasta Carson, ROBERTA.WILDFIRE PREVENTION SPECIALIST [address] [facility] [address] Nurse Practitioner Hematology/Oncology 08/14/23 Penelope Moreno, MONET [address] [facility] [place] [address] Specialty 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 Hematology/Oncology 08/14/[address] [facility] [address] Registered Dietitian Nutrition 08/29/23 Information Analyst Relationship Specialty Start Date End Date Justin Buckner MD [address] [facility] [address] PCP - General Family Medicine 06/22/23 Jose Wing MD [address] [facility] [address] Physician Hematology/Oncology 08/14/23 Shasta Carson, COMMUNITY SERVICE COORDINATOR.WILDFIRE PREVENTION SPECIALIST [address] [facility] [address] Nurse Practitioner Hematology/Oncology 08/14/23 Penelope Moreno, MONET [address] [facility] [address] Specialty 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 Hematology/Oncology 08/14/[address] [facility] [address] Registered Dietitian Nutrition 08/29/23 Information Analyst Relationship Specialty Start Date End Date Justin Buckner MD [address] [place] [address] PCP - General Family Medicine 06/22/23 Jose Wing MD [address] [facility] [address] Physician Hematology/Oncology 08/14/23 Shasta Carson, COMMUNITY SERVICE COORDINATOR.WILDFIRE PREVENTION SPECIALIST [address] [facility] [place] [address] Nurse Practitioner Hematology/Oncology 08/14/23 Penelope Moreno, MONET [address] [facility] [address] Specialty 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 Hematology/Oncology 08/14/[address] [facility] [address] Registered Dietitian Nutrition 08/29/23 Information Analyst Relationship Specialty Start Date End Date Justin Buckner MD [address] [place] [address] PCP - General Family Medicine 06/22/23 Jose Wing MD [address] [facility] [address] Physician Hematology/Oncology 08/14/23 Shasta Carson, COMMUNITY SERVICE COORDINATOR.WILDFIRE PREVENTION SPECIALIST [address] [facility] [address] Nurse Practitioner Hematology/Oncology 08/14/23 Penelope Moreno, MONET [address] [facility] [address] Specialty 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 Hematology/Oncology 08/14/[address] [facility] [address] Registered Dietitian Nutrition 08/29/23 Information Analyst Relationship Specialty Start Date End Date Justin Buckner MD [facility] [place] [address] PCP - General Family Medicine 06/22/23 Jose Wing MD [address] [facility] [address] Physician Hematology/Oncology 08/14/23 Shasta Carson, COMMUNITY SERVICE COORDINATOR.WILDFIRE PREVENTION SPECIALIST [address] [facility] [address] Nurse Practitioner Hematology/Oncology 08/14/23 Penelope Moreno, MONET [address] [facility] [address] Specialty 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 Hematology/Oncology 08/14/[address] [facility] [address] Registered Dietitian Nutrition 08/29/23 Information Analyst Relationship Specialty Start Date End Date Justin Buckner MD [address] [place] [address] PCP - General Family Medicine 06/22/23 Jose Wing MD [address] [facility] [place] [address] Physician Hematology/Oncology 08/14/23 Shasta Carson, COMMUNITY SERVICE COORDINATOR.WILDFIRE PREVENTION SPECIALIST [address] [facility] [place] [address] Nurse Practitioner Hematology/Oncology 08/14/23 Penelope Moreno, MONET [address] [facility] [address] Specialty 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 Hematology/Oncology 08/14/[address] [facility] [address] Registered Dietitian Nutrition 08/29/23 Information Analyst Relationship Specialty Start Date End Date Justin Buckner MD [address] [place] [address] PCP - General Family Medicine 06/22/23 Jose Wing MD [address] [facility] [place] [address] Physician Hematology/Oncology 08/14/23 Shasta Carson, COMMUNITY SERVICE COORDINATOR.WILDFIRE PREVENTION SPECIALIST [address] [facility] [place] [address] Nurse Practitioner Hematology/Oncology 08/14/23 Penelope Moreno, MONET [address] [facility] [place] [address] Specialty 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 Hematology/Oncology 08/14/[address] [facility] [place] [place] [address] Registered Dietitian Nutrition 08/29/23 Information Analyst Relationship Specialty Start Date End Date Justin Buckner MD [address] [place] [address] PCP - General Family Medicine 06/22/23 Jose Wing MD [address] [facility] [place] [address] Physician Hematology/Oncology 08/14/23 Shasta Carson APRN.WILDFIRE PREVENTION SPECIALIST [address] [facility] [place] [address] Nurse Practitioner Hematology/Oncology 08/14/23 Penelope Moreno, MONET [address] [facility] [address] Specialty 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 Hematology/Oncology 08/14/[address] [facility] [address] Registered Dietitian Nutrition 08/29/23 Information Analyst Relationship Specialty Start Date End Date Justin Buckner MD [address] [place] [facility] [place] [address] PCP - General Family Medicine 06/22/23 Jose Wing MD [address] [facility] [place] [address] Physician Hematology/Oncology 08/14/23 Shasta Carson, COMMUNITY SERVICE COORDINATOR.WILDFIRE PREVENTION SPECIALIST [address] [facility] [address] Nurse Practitioner Hematology/Oncology 08/14/23 Penelope Moreno, MONET [address] [facility] [address] Specialty 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 Hematology/Oncology 08/14/[address] [facility] [place] [address] Registered Dietitian Nutrition 08/29/23 Information Analyst Relationship Specialty Start Date End Date Justin Buckner MD [address] [place] [address] PCP - General Family Medicine 06/22/23 Jose Wing MD [address] [facility] [place] [address] Physician Hematology/Oncology 08/14/23 Shasta Carson, COMMUNITY SERVICE COORDINATOR.WILDFIRE PREVENTION SPECIALIST [address] [facility] [place] [address] Nurse Practitioner Hematology/Oncology 08/14/23 Penelope Moreno, MONET [address] [facility] [address] Specialty 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 Hematology/Oncology 08/14/[address] [facility] [place] [address] Registered Dietitian Nutrition 08/29/23 Information Analyst Relationship Specialty Start Date End Date Justin Buckner MD [address] [place] [address] PCP - General Family Medicine 06/22/23 Jose Wing MD [address] [facility] [address] Physician Hematology/Oncology 08/14/23 Shasta Carson, COMMUNITY SERVICE COORDINATOR.WILDFIRE PREVENTION SPECIALIST [address] [facility] [place] [address] Nurse Practitioner Hematology/Oncology 08/14/23 Penelope Moreno, MONET [address] [facility] [place] [address] Specialty 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 Hematology/Oncology 08/14/[address] [facility] [place] [address] Registered Dietitian Nutrition 08/29/23 Information Analyst Relationship Specialty Start Date End Date Justin Buckner MD [address] [place] [address] PCP - General Family Medicine 06/22/23 Jose Wing MD [address] [facility] [place] [address] Physician Hematology/Oncology 08/14/23 Shasta Carson, COMMUNITY SERVICE COORDINATOR.WILDFIRE PREVENTION SPECIALIST [address] [facility] [place] [address] Nurse Practitioner Hematology/Oncology 08/14/23 Penelope Moreno, MONET [address] [facility] [address] Specialty 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 Hematology/Oncology 08/14/[address] [facility] [place] [address] Registered Dietitian Nutrition 08/29/23 Information Analyst Relationship Specialty Start Date End Date Justin Buckner MD [address] [place] [facility] [place] [address] PCP - General Family Medicine 06/22/23 Jose Wing MD [address] [facility] [place] [address] Physician Hematology/Oncology 08/14/23 Shasta Carson, COMMUNITY SERVICE COORDINATOR.WILDFIRE PREVENTION SPECIALIST [address] [facility] [place] [address] Nurse Practitioner Hematology/Oncology 08/14/23 Penelope Moreno, MONET [address] [facility] [place] [address] Specialty 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 Hematology/Oncology 08/14/[address] [facility] [place] [address] Registered Dietitian Nutrition 08/29/23 Information Analyst Relationship Specialty Start Date End Date Justin Buckner MD [address] [place] [address] PCP - General Family Medicine 06/22/23 Jose Wing MD [address] [facility] [place] [address] Physician Hematology/Oncology 08/14/23 Shasta Carson, COMMUNITY SERVICE COORDINATOR.WILDFIRE PREVENTION SPECIALIST [address] [facility] [place] [address] Nurse Practitioner Hematology/Oncology 08/14/23 Penelope Moreno, MONET [address] [facility] [address] Specialty 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 Hematology/Oncology 08/14/[address] [facility] [address] Registered Dietitian Nutrition 08/29/23 Information Analyst Relationship Specialty Start Date End Date Justin Buckner MD [address] [place] [address] PCP - General Family Medicine 06/22/23 Jose Wing MD [address] [place] [address] [place] [address] Physician Hematology/Oncology 08/14/23 Shasta Carson, COMMUNITY SERVICE COORDINATOR.WILDFIRE PREVENTION SPECIALIST [address] [place] [address] [place] [address] Nurse Practitioner Hematology/Oncology 08/14/23 Penelope Moreno RN [address] [facility] [address] Specialty 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 Hematology/Oncology 08/14/[address] [place] [address] [place] [address] Registered Dietitian Nutrition 08/29/23 Information Analyst Relationship Specialty Start Date End Date Justin Buckner MD [address] [place] [facility] [place] [place] [address] PCP - General Family Medicine 06/22/23 Jose Wing MD [address] [facility] [address] Physician Hematology/Oncology 08/14/23 Shasta Carson, COMMUNITY SERVICE COORDINATOR.WILDFIRE PREVENTION SPECIALIST [address] [facility] [address] Nurse Practitioner Hematology/Oncology 08/14/23 Penelope Moreno, MONET [address] [facility] [address] Specialty 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 Hematology/Oncology 08/14/[address] [facility] [address] Registered Dietitian Nutrition 08/29/23 Information Analyst Relationship Specialty Start Date End Date Justin Buckner MD [address] [place] [address] PCP - General Family Medicine 06/22/23 Jose Wing MD [address] [facility] [address] Physician Hematology/Oncology 08/14/23 Shasta Carson, COMMUNITY SERVICE COORDINATOR.WILDFIRE PREVENTION SPECIALIST [address] [facility] [address] Nurse Practitioner Hematology/Oncology 08/14/23 Penelope Moreno, MONET [address] [facility] [address] Specialty 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 Hematology/Oncology 08/14/[address] [facility] [address] Registered Dietitian Nutrition 08/29/23 Information Analyst Relationship Specialty Start Date End Date Justin Buckner MD [address] [place] [address] PCP - General Family Medicine 06/22/23 Jose Wing MD [address] [facility] [address] Physician Hematology/Oncology 08/14/23 Shasta Carson, COMMUNITY SERVICE COORDINATOR.WILDFIRE PREVENTION SPECIALIST [address] [facility] [address] Nurse Practitioner Hematology/Oncology 08/14/23 Penelope Moreno, MONET [address] [facility] [address] Specialty 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 Hematology/Oncology 08/14/[address] [facility] [address] Registered Dietitian Nutrition 08/29/23 Information Analyst Relationship Specialty Start Date End Date Justin Buckner MD [address] [place] [address] PCP - General Family Medicine 06/22/23 Jose Wing MD [address] [facility] [address] Physician Hematology/Oncology 08/14/23 Shasta Carson, COMMUNITY SERVICE COORDINATOR.WILDFIRE PREVENTION SPECIALIST [address] [facility] [address] Nurse Practitioner Hematology/Oncology 08/14/23 Penelope Moreno, MONET [address] [facility] [address] Specialty 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 Hematology/Oncology 08/14/[address] [facility] [address] Registered Dietitian Nutrition 08/29/23 Information Analyst Relationship Specialty Start Date End Date Justin Buckner MD [address] [place] [facility] [place] [place] [address] PCP - General Family Medicine 06/22/23 Jose Wing MD [address] [facility] [place] [address] Physician Hematology/Oncology 08/14/23 Shasta Carson, COMMUNITY SERVICE COORDINATOR.WILDFIRE PREVENTION SPECIALIST [address] [facility] [address] Nurse Practitioner Hematology/Oncology 08/14/23 Penelope Moreno, MONET [address] [facility] [place] [address] Specialty 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 Hematology/Oncology 08/14/[address] [facility] [place] [address] Registered Dietitian Nutrition 08/29/23 Information Analyst Relationship Specialty Start Date End Date Justin Buckner MD [address] [place] [facility] [place] [address] PCP - General Family Medicine 06/22/23 Jose Wing MD [address] [facility] [address] Physician Hematology/Oncology 08/14/23 Shasta Carson, COMMUNITY SERVICE COORDINATOR.WILDFIRE PREVENTION SPECIALIST [address] [facility] [address] Nurse Practitioner Hematology/Oncology 08/14/23 Penelope Moreno, MONET [address] [facility] [place] [address] Specialty 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 Hematology/Oncology 08/14/[address] [facility] [address] Registered Dietitian Nutrition 08/29/23 Information Analyst Relationship Specialty Start Date End Date Justin Buckner MD [address] [place] [address] PCP - General Family Medicine 06/22/23 Jose Wing MD [address] [facility] [place] [address] Physician Hematology/Oncology 08/14/23 Shasta Carson APRN.WILDFIRE PREVENTION SPECIALIST [address] [facility] [place] [address] Nurse Practitioner Hematology/Oncology 08/14/23 Penelope Moreno, MONET [address] [facility] [address] Specialty 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 Hematology/Oncology 08/14/[address] [facility] [place] [address] Registered Dietitian Nutrition 08/29/23 Team Status: Inactive Member Role Status Dates Justin Buckner MD Primary Care Provide r, Attending Provider Active Start: January 15, 2024 End: January 15, 2024 Information Analyst Relationship Specialty Start Date End Date Justin Buckner MD [address] [place] [address] PCP - General Family Medicine 06/22/23 Jose Wing MD [address] [facility] [place] [address] Physician Hematology/Oncology 08/14/23 Shasta Carson, COMMUNITY SERVICE COORDINATOR.WILDFIRE PREVENTION SPECIALIST [address] [facility] [address] Nurse Practitioner Hematology/Oncology 08/14/23 Penelope Moreno, MONET [address] [facility] [address] Specialty 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 Hematology/Oncology 08/14/[address] [facility] [address] Registered Dietitian Nutrition 08/29/23 Information Analyst Relationship Specialty Start Date End Date Justin Buckner MD [address] [place] [address] PCP - General Family Medicine 06/22/23 Jose Wing MD [address] [facility] [address] Physician Hematology/Oncology 08/14/23 Shasta Carson, COMMUNITY SERVICE COORDINATOR.WILDFIRE PREVENTION SPECIALIST [address] [facility] [place] [address] Nurse Practitioner Hematology/Oncology 08/14/23 Penelope Moreno, MONET [address] [facility] [address] Specialty 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 Hematology/Oncology 08/14/[address] [facility] [address] Registered Dietitian Nutrition 08/29/23 Information Analyst Relationship Specialty Start Date End Date Justin Buckner MD [address] [place] [address] PCP - General Family Medicine 06/22/23 Information Analyst Relationship Specialty Start Date End Date Justin Buckner MD [address] [place] [address] PCP - General Family Medicine 06/22/23 Information Analyst Relationship Specialty Start Date End Date Justin Buckner MD [address] [place] [address] PCP - General Family Medicine 06/22/23 Information Analyst Relationship Specialty Start Date End Date Justin Bukcner MD [address] [place] [id number] PCP - General Family Medicine 06/22/23 Jose Wing MD [address] [place] [address] [address] [place], [place] [address] Physician Hematology/Oncology 08/14/23 Shasta Carson APRN.CNP [address] [place] [address] [address] [place], [facility] Nurse Practitioner Hematology/Oncology 08/14/23 Penelope Moreno, MONET [address] [facility] [address] [place] [id number] Specialty 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 Hematology/Oncology 08/14/[address] [place] [address] [place] [id number] Registered Dietitian Nutrition 08/29/23 Information Analyst Relationship Specialty Start Date End Date Justin Buckner MD [address] [place] [address] PCP - General Family Medicine 06/22/23 Jose Wing MD [address] [facility] [address] Physician Hematology/Oncology 08/14/23 Shasta Carson, COMMUNITY SERVICE COORDINATOR.WILDFIRE PREVENTION SPECIALIST [address] [facility] [address] Nurse Practitioner Hematology/Oncology 08/14/23 Penelope Moreno, RN [address] [facility] [address] Specialty 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 Hematology/Oncology 08/14/[address] [facility] [address] Registered Dietitian Nutrition 08/29/23 Information Analyst Relationship Specialty Start Date End Date Justin Buckner MD [address] [place] [address] PCP - General Family Medicine 06/22/23 Jose Wing MD [address] [facility] [address] Physician Hematology/Oncology 08/14/23 Shasta Carson, COMMUNITY SERVICE COORDINATOR.WILDFIRE PREVENTION SPECIALIST [address] [facility] [address] Nurse Practitioner Hematology/Oncology 08/14/23 Penelope Moreno, MONET [address] [facility] [address] Specialty 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 Hematology/Oncology 08/14/[address] [facility] [address] Registered Dietitian Nutrition 08/29/23 Information Analyst Relationship Specialty Start Date End Date Justin Buckner MD [address] [place] [address] PCP - General Family Medicine 06/22/23 Jose Wing MD [address] [facility] [place] [address] Physician Hematology/Oncology 08/14/23 Shasta Carson, COMMUNITY SERVICE COORDINATOR.WILDFIRE PREVENTION SPECIALIST [address] [facility] [address] Nurse Practitioner Hematology/Oncology 08/14/23 Penelope Moreno, MONET [address] [facility] [place] [address] Specialty 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 Hematology/Oncology 08/14/[address] [facility] [address] Registered Dietitian Nutrition 08/29/23 Information Analyst Relationship Specialty Start Date End Date Justin Buckner MD [address] [place] [address] PCP - General Family Medicine 06/22/23 Jose Wing MD [address] [facility] [address] Physician Hematology/Oncology 08/14/23 Shasta Carson, COMMUNITY SERVICE COORDINATOR.WILDFIRE PREVENTION SPECIALIST [address] [facility] [address] Nurse Practitioner Hematology/Oncology 08/14/23 Penelope Moreno, RN [address] [facility] [place] [address] Specialty 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 Hematology/Oncology 08/14/[address] [place] [address] Registered Dietitian Nutrition 08/29/23 Information Analyst Relationship Specialty Start Date End Date Justin Buckner MD [address] [place] [address] PCP - General Family Medicine 06/22/23 Jose Wing MD [address] [place] [address] Physician Hematology/Oncology 08/14/23 Shasta Carson, COMMUNITY SERVICE COORDINATOR.WILDFIRE PREVENTION SPECIALIST [address] [place] [address] Nurse Practitioner Hematology/Oncology 08/14/23 Penelope Moreno, MONET [address] [facility] [place] [address] Specialty 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 Hematology/Oncology 08/14/[address] [facility] [place] [address] Registered Dietitian Nutrition 08/29/23 Information Analyst Relationship Specialty Start Date End Date Justin Buckner MD [address] [place] [place] [address] PCP - General Family Medicine 06/22/23 Jose Wing MD [address] [facility] [place] [address] Physician Hematology/Oncology 08/14/23 Shasta Carson, COMMUNITY SERVICE COORDINATOR.WILDFIRE PREVENTION SPECIALIST [address] [place], [facility] Nurse Practitioner Hematology/Oncology 08/14/23 Penelope Moreno, MONET [address] [facility] [address] Specialty 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 Hematology/Oncology 08/14/23 Eliza [address] [facility] [place] [address] Registered Dietitian Nutrition 08/29/23 Information Analyst Relationship Specialty Start Date End Date Justin Buckner MD [address] [place] [address] PCP - General Family Medicine 06/22/23 Jose Wing MD [address] [facility] [address] [place], [facility] Physician Hematology/Oncology 08/14/23 Shasta Carson APRN.WILDFIRE PREVENTION SPECIALIST [address] [facility] [address] [place], [facility] Nurse Practitioner Hematology/Oncology 08/14/23 Penelope Moreno, MONET [address] [facility] [place] [address] Specialty 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 Hematology/Oncology 08/14/[address] [facility] [place] [address] Registered Dietitian Nutrition 08/29/23 Information Analyst Relationship Specialty Start Date End Date Justin Buckner MD [address] [place] [address] PCP - General Family Medicine 06/22/23 Jose Wing MD [address] [facility] [place] [address] Physician Hematology/Oncology 08/14/23 Shasta Carson, COMMUNITY SERVICE COORDINATOR.WILDFIRE PREVENTION SPECIALIST [address] [facility] [address] Nurse Practitioner Hematology/Oncology 08/14/23 Penelope Moreno, MONET [address] [facility] [place] [address] Specialty 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 Hematology/Oncology 08/14/[address] [place] [address] [place] [address] Registered Dietitian Nutrition 08/29/23 Information Analyst Relationship Specialty Start Date End Date Justin Buckner MD [address] [place], [place] [id number] PCP - General Family Medicine 06/22/23 Jose Wing MD [address] [place] [address] [place] [address] Physician Hematology/Oncology 08/14/23 Shasta Carson, COMMUNITY SERVICE COORDINATOR.WILDFIRE PREVENTION SPECIALIST [address] [facility] [address] Nurse Practitioner Hematology/Oncology 08/14/23 Penelope Moreno, MONET [address] [facility] [address] Specialty 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 Hematology/Oncology 08/14/[address] [facility] [address] Registered Dietitian Nutrition 08/29/23 Information Analyst Relationship Specialty Start Date End Date Justin Buckner MD [address] [place] [facility] [place] [address] PCP - General Family Medicine 06/22/23 Jose Wing MD [address] [place] [address] [place] [address] Physician Hematology/Oncology 08/14/23 Shasta Carson APRN.WILDFIRE PREVENTION SPECIALIST [address] [facility] [place] [address] Nurse Practitioner Hematology/Oncology 08/14/23 Penelope Moreno, MONET [address] [place] [address] [place] [address] Specialty 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 Hematology/Oncology 08/14/[address] [place] [address] [place] [address] Registered Dietitian Nutrition 08/29/23 Team Status: Active Member Role Status Dates Justin Buckner MD Primary Care Provider Active Start: April 10, 2025 Jairo Cuenca PA-C Emergency Provider Active Start: April 10, 2025 Simba Mulligan MD Admit Provider Active Start: April 10, 2025 Simba Mulligan MD Other Provider Active Start: April 10, 2025 Surya Crowe DO Other Provider Active Start: April 10, 2025 Toan Healy DO Attending Provider Active Start: April 10, 2025 Team Status: Inactive Member Role Status Dates Justin Buckner MD Primary Care Provider Active Start: May 27, 2025 End: May 27, 2025 Damaris Chavarria DO Attending Provider Active Sta rt: May 27, 2025 End: May 27, 2025 Information Analyst Relationship Specialty Start Date End Date Justin Buckner MD [address] [place] [facility] [place] [address] PCP - General Family Medicine 06/22/23 Jose Wing MD [address] [facility] [place] [address] Physician Hematology/Oncology 08/14/23 Shasta Carson APRN.WILDFIRE PREVENTION SPECIALIST [address] [facility] [place] [address] Nurse Practitioner Hematology/Oncology 08/14/23 Penelope Moreno, MONET [address] [facility] [place] [address] Specialty 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 Hematology/Oncology 08/14/[address] [place] [address] Registered Dietitian Nutrition 08/29/23 Source Comments (unrecognize d section and content) In the event this informatio n is protected by the Federal Confidentiality of Alcohol and Drug Abuse Patient Records regulations: The Federal rules restrict any use of the information to criminally investigate or prosecute any alcohol or drug abuse patient.[facility] Hospital[facility] the event this information is protected by the Federal Confidentiality of Alcohol and Drug Abuse Patient Records regulations: The Federal rules restrict any use of the information to criminally investigate or prosecute any alcohol or drug abuse patient.[facility] HospitalIn the event this information is protected by the Federal Confidentiality of Alcohol and Drug Abuse Patient Records regulations: The Federal rules restrict any use of the information to criminally investigate or prosecute any alcohol or drug abuse patient.[facility] HospitalIn the event this information is protected by the Federal Confidentiality of Alcohol and Drug Abuse Patient Records regulations: The Federal rules restrict any use of the information to criminally investigate or prosecute any alcohol or drug abuse patient.[facility] HospitalIn the event this information is protected by the Federal Confidentiality of Alcohol and Drug Abuse Patient Records regulations: The Federal rules restrict any use of the information to criminally investigate or prosecute any alcohol or drug abuse patient.[facility] HospitalIn the event this information is protected by the Federal Confidentiality of Alcohol and Drug Abuse Patient Records regulations: The Federal rules restrict any use of the information to criminally investigate or prosecute any alcohol or drug abuse patient.[facility] HospitalIn the event this information is protected by the Federal Confidentiality of Alcohol and Drug Abuse Patient Records regulations: The Federal rules restrict any use of the information to criminally investigate or prosecute any alcohol or drug abuse patient.[facility] HospitalIn the event this information is protected by the Federal Confidentiality of Alcohol and Drug Abuse Patient Records regulations: The Federal rules restrict any use of the information to criminally investigate or prosecute any alcohol or drug abuse patient.[facility] HospitalIn the event this information is protected by the Federal Confidentiality of Alcohol and Drug Abuse Patient Records regulations: The Federal rules restrict any use of the information to criminally investigate or prosecute any alcohol or drug abuse patient.[facility] HospitalIn the event this information is protected by the Federal Confidentiality of Alcohol and Drug Abuse Patient Records regulations: The Federal rules restrict any use of the information to criminally investigate or prosecute any alcohol or drug abuse patient.[facility] HospitalIn the event this information is protected by the Federal Confidentiality of Alcohol and Drug Abuse Patient Records regulations: The Federal rules restrict any use of the information to criminally investigate or prosecute any alcohol or drug abuse patient.[facility] HospitalIn the event this information is protected by the Federal Confidentiality of Alcohol and Drug Abuse Patient Records regulations: The Federal rules restrict any use of the information to criminally investigate or prosecute any alcohol or drug abuse patient.[facility] HospitalIn the event this information is protected by the Federal Confidentiality of Alcohol and Drug Abuse Patient Records regulations: The Federal rules restrict any use of the information to criminally investigate or prosecute any alcohol or drug abuse patient.[facility] HospitalIn the event this information is protected by the Federal Confidentiality of Alcohol and Drug Abuse Patient Records regulations: The Federal rules restrict any use of the information to criminally investigate or prosecute any alcohol or drug abuse patient.[facility] HospitalIn the event this information is protected by the Federal Confidentiality of Alcohol and Drug Abuse Patient Records regulations: The Federal rules restrict any use of the information to criminally investigate or prosecute any alcohol or drug abuse patient.[facility] HospitalIn the event this information is protected by the Federal Confidentiality of Alcohol and Drug Abuse Patient Records regulations: The Federal rules restrict any use of the information to criminally investigate or prosecute any alcohol or drug abuse patient.[facility] HospitalIn the event this information is protected by the Federal Confidentiality of Alcohol and Drug Abuse Patient Records regulations: The Federal rules restrict any use of the information to criminally investigate or prosecute any alcohol or drug abuse patient.[facility] HospitalIn the event this information is protected by the Federal Confidentiality of Alcohol and Drug Abuse Patient Records regulations: The Federal rules restrict any use of the information to criminally investigate or prosecute any alcohol or drug abuse patient.[facility] HospitalIn the event this information is protected by the Federal Confidentiality of Alcohol and Drug Abuse Patient Records regulations: The Federal rules restrict any use of the information to criminally investigate or prosecute any alcohol or drug abuse patient.[facility] HospitalIn the event this information is protected by the Federal Confidentiality of Alcohol and Drug Abuse Patient Records regulations: The Federal rules restrict any use of the information to criminally investigate or prosecute any alcohol or drug abuse patient.[facility] HospitalIn the event this information is protected by the Federal Confidentiality of Alcohol and Drug Abuse Patient Records regulations: The Federal rules restrict any use of the information to criminally investigate or prosecute any alcohol or drug abuse patient.[facility] HospitalIn the event this information is protected by the Federal Confidentiality of Alcohol and Drug Abuse Patient Records regulations: The Federal rules restrict any use of the information to criminally investigate or prosecute any alcohol or drug abuse patient.[facility] HospitalIn the event this information is protected by the Federal Confidentiality of Alcohol and Drug Abuse Patient Records regulations: The Federal rules restrict any use of the information to criminally investigate or prosecute any alcohol or drug abuse patient.[facility] HospitalIn the event this information is protected by the Federal Confidentiality of Alcohol and Drug Abuse Patient Records regulations: The Federal rules restrict any use of the information to criminally investigate or prosecute any alcohol or drug abuse patient.[facility] HospitalIn the event this information is protected by the Federal Confidentiality of Alcohol and Drug Abuse Patient Records regulations: The Federal rules restrict any use of the information to criminally investigate or prosecute any alcohol or drug abuse patient.[facility] HospitalIn the event this information is protected by the Federal Confidentiality of Alcohol and Drug Abuse Patient Records regulations: The Federal rules restrict any use of the information to criminally investigate or prosecute any alcohol or drug abuse patient.[facility] HospitalIn the event this information is protected by the Federal Confidentiality of Alcohol and Drug Abuse Patient Records regulations: The Federal rules restrict any use of the information to criminally investigate or prosecute any alcohol or drug abuse patient.[facility] HospitalIn the event this information is protected by the Federal Confidentiality of Alcohol and Drug Abuse Patient Records regulations: The Federal rules restrict any use of the information to criminally investigate or prosecute any alcohol or drug abuse patient.[facility] HospitalIn the event this information is protected by the Federal Confidentiality of Alcohol and Drug Abuse Patient Records regulations: The Federal rules restrict any use of the information to criminally investigate or prosecute any alcohol or drug abuse patient.[facility] HospitalIn the event this information is protected by the Federal Confidentiality of Alcohol and Drug Abuse Patient Records regulations: The Federal rules restrict any use of the information to criminally investigate or prosecute any alcohol or drug abuse patient.[facility] HospitalIn the event this information is protected by the Federal Confidentiality of Alcohol and Drug Abuse Patient Records regulations: The Federal rules restrict any use of the information to criminally investigate or prosecute any alcohol or drug abuse patient.[facility] HospitalIn the event this information is protected by the Federal Confidentiality of Alcohol and Drug Abuse Patient Records regulations: The Federal rules restrict any use of the information to criminally investigate or prosecute any alcohol or drug abuse patient.[facility] HospitalIn the event this information is protected by the Federal Confidentiality of Alcohol and Drug Abuse Patient Records regulations: The Federal rules restrict any use of the information to criminally investigate or prosecute any alcohol or drug abuse patient.[facility] HospitalIn the event this information is protected by the Federal Confidentiality of Alcohol and Drug Abuse Patient Records regulations: The Federal rules restrict any use of the information to criminally investigate or prosecute any alcohol or drug abuse patient.[facility] HospitalIn the event this information is protected by the Federal Confidentiality of Alcohol and Drug Abuse Patient Records regulations: The Federal rules restrict any use of the information to criminally investigate or prosecute any alcohol or drug abuse patient.[facility] HospitalIn the event this information is protected by the Federal Confidentiality of Alcohol and Drug Abuse Patient Records regulations: The Federal rules restrict any use of the information to criminally investigate or prosecute any alcohol or drug abuse patient.[facility] HospitalIn the event this information is protected by the Federal Confidentiality of Alcohol and Drug Abuse Patient Records regulations: The Federal rules restrict any use of the information to criminally investigate or prosecute any alcohol or drug abuse patient.[facility] HospitalIn the event this information is protected by the Federal Confidentiality of Alcohol and Drug Abuse Patient Records regulations: The Federal rules restrict any use of the information to criminally investigate or prosecute any alcohol or drug abuse patient.[facility] HospitalIn the event this information is protected by the Federal Confidentiality of Alcohol and Drug Abuse Patient Records regulations: The Federal rules restrict any use of the information to criminally investigate or prosecute any alcohol or drug abuse patient.[facility] HospitalIn the event this information is protected by the Federal Confidentiality of Alcohol and Drug Abuse Patient Records regulations: The Federal rules restrict any use of the information to criminally investigate or prosecute any alcohol or drug abuse patient.[facility] HospitalIn the event this information is protected by the Federal Confidentiality of Alcohol and Drug Abuse Patient Records regulations: The Federal rules restrict any use of the information to criminally investigate or prosecute any alcohol or drug abuse patient.[facility] HospitalIn the event this information is protected by the Federal Confidentiality of Alcohol and Drug Abuse Patient Records regulations: The Federal rules restrict any use of the information to criminally investigate or prosecute any alcohol or drug abuse patient.[facility] HospitalIn the event this information is protected by the Federal Confidentiality of Alcohol and Drug Abuse Patient Records regulations: The Federal rules restrict any use of the information to criminally investigate or prosecute any alcohol or drug abuse patient.[facility] HospitalIn the event this information is protected by the Federal Confidentiality of Alcohol and Drug Abuse Patient Records regulations: The Federal rules restrict any use of the information to criminally investigate or prosecute any alcohol or drug abuse patient.[facility] HospitalIn the event this information is protected by the Federal Confidentiality of Alcohol and Drug Abuse Patient Records regulations: The Federal rules restrict any use of the information to criminally investigate or prosecute any alcohol or drug abuse patient.[facility] HospitalIn the event this information is protected by the Federal Confidentiality of Alcohol and Drug Abuse Patient Records regulations: The Federal rules restrict any use of the information to criminally investigate or prosecute any alcohol or drug abuse patient.[facility] HospitalIn the event this information is protected by the Federal Confidentiality of Alcohol and Drug Abuse Patient Records regulations: The Federal rules restrict any use of the information to criminally investigate or prosecute any alcohol or drug abuse patient.[facility] HospitalIn the event this information is protected by the Federal Confidentiality of Alcohol and Drug Abuse Patient Records regulations: The Federal rules restrict any use of the information to criminally investigate or prosecute any alcohol or drug abuse patient.[facility] HospitalIn the event this information is protected by the Federal Confidentiality of Alcohol and Drug Abuse Patient Records regulations: The Federal rules restrict any use of the information to criminally investigate or prosecute any alcohol or drug abuse patient.[facility] HospitalIn the event this information is protected by the Federal Confidentiality of Alcohol and Drug Abuse Patient Records regulations: The Federal rules restrict any use of the information to criminally investigate or prosecute any alcohol or drug abuse patient.[facility] HospitalIn the event this information is protected by the Federal Confidentiality of Alcohol and Drug Abuse Patient Records regulations: The Federal rules restrict any use of the information to criminally investigate or prosecute any alcohol or drug abuse patient.[facility] HospitalIn the event this information is protected by the Federal Confidentiality of Alcohol and Drug Abuse Patient Records regulations: The Federal rules restrict any use of the information to criminally investigate or prosecute any alcohol or drug abuse patient.[facility] HospitalIn the event this information is protected by the Federal Confidentiality of Alcohol and Drug Abuse Patient Records regulations: The Federal rules restrict any use of the information to criminally investigate or prosecute any alcohol or drug abuse patient.[facility] HospitalIn the event this information is protected by the Federal Confidentiality of Alcohol and Drug Abuse Patient Records regulations: The Federal rules restrict any use of the information to criminally investigate or prosecute any alcohol or drug abuse patient.[facility] HospitalIn the event this information is protected by the Federal Confidentiality of Alcohol and Drug Abuse Patient Records regulations: The Federal rules restrict any use of the information to criminally investigate or prosecute any alcohol or drug abuse patient.[facility] HospitalIn the event this information is protected by the Federal Confidentiality of Alcohol and Drug Abuse Patient Records regulations: The Federal rules restrict any use of the information to criminally investigate or prosecute any alcohol or drug abuse patient.[facility] HospitalIn the event this information is protected by the Federal Confidentiality of Alcohol and Drug Abuse Patient Records regulations: The Federal rules restrict any use of the information to criminally investigate or prosecute any alcohol or drug abuse patient.[facility] HospitalIn the event this information is protected by the Federal Confidentiality of Alcohol and Drug Abuse Patient Records regulations: The Federal rules restrict any use of the information to criminally investigate or prosecute any alcohol or drug abuse patient.[facility] HospitalIn the event this information is protected by the Federal Confidentiality of Alcohol and Drug Abuse Patient Records regulations: The Federal rules restrict any use of the information to criminally investigate or prosecute any alcohol or drug abuse patient.[facility] HospitalIn the event this information is protected by the Federal Confidentiality of Alcohol and Drug Abuse Patient Records regulations: The Federal rules restrict any use of the information to criminally investigate or prosecute any alcohol or drug abuse patient.[facility] HospitalIn the event this information is protected by the Federal Confidentiality of Alcohol and Drug Abuse Patient Records regulations: The Federal rules restrict any use of the information to criminally investigate or prosecute any alcohol or drug abuse patient.[facility] HospitalIn the event this information is protected by the Federal Confidentiality of Alcohol and Drug Abuse Patient Records regulations: The Federal rules restrict any use of the information to criminally investigate or prosecute any alcohol or drug abuse patient.[facility] HospitalIn the event this information is protected by the Federal Confidentiality of Alcohol and Drug Abuse Patient Records regulations: The Federal rules restrict any use of the information to criminally investigate or prosecute any alcohol or drug abuse patient.[facility] HospitalIn the event this information is protected by the Federal Confidentiality of Alcohol and Drug Abuse Patient Records regulations: The Federal rules restrict any use of the information to criminally investigate or prosecute any alcohol or drug abuse patient.[facility] [facility] HospitalIn the event this information is protected by the Federal Confidentiality of Alcohol and Drug Abuse Patient Records regulations: The Federal rules restrict any use of the information to criminally investigate or prosecute any alcohol or drug abuse patient.[facility] the event this information is protected by the Federal Confidentiality of Alcohol and Drug Abuse Patient Records regulations: The Federal rules restrict any use of the information to criminally investigate or prosecute any alcohol or drug abuse patient.[facility] Hospital[facility] the event this information is protected by the Federal Confidentiality of Alcohol and Drug Abuse Patient Records regulations: The Federal rules restrict any use of the information to criminally investigate or prosecute any alcohol or drug abuse patient.[facility] Hospital[facility] the event this information is protected by the Federal Confidentiality of Alcohol and Drug Abuse Patient Records regulations: The Federal rules restrict any use of the information to criminally investigate or prosecute any alcohol or drug abuse patient.[facility] Hospital[facility] the event this information is protected by the Federal Confidentiality of Alcohol and Drug Abuse Patient Records regulations: The Federal rules restrict any use of the information to criminally investigate or prosecute any alcohol or drug abuse patient.[facility] Hospital[facility] the event this information is protected by the Federal Confidentiality of Alcohol and Drug Abuse Patient Records regulations: The Federal rules restrict any use of the information to criminally investigate or prosecute any alcohol or drug abuse patient.[facility] Hospital[facility] the event this information is protected by the Federal Confidentiality of Alcohol and Drug Abuse Patient Records regulations: The Federal rules restrict any use of the information to criminally investigate or prosecute any alcohol or drug abuse patient.[facility] HospitalIn the event this information is protected by the Federal Confidentiality of Alcohol and Drug Abuse Patient Records regulations: The Federal rules restrict any use of the information to criminally investigate or prosecute any alcohol or drug abuse patient.[facility] HospitalIn the event this information is protected by the Federal Confidentiality of Alcohol and Drug Abuse Patient Records regulations: The Federal rules restrict any use of the information to criminally investigate or prosecute any alcohol or drug abuse patient.[facility] Reason for Visit (unrecogniz ed section and content) Reason Comments Radiology NM Specialty Diagnoses / Procedures Referred By Contac t Referred To Contact CT IMAGING Diagnoses Malignant neoplasm of sigmoid colon (HCC) Procedures CT PELVIS W IVCON CT PELVIS W/[place] [address] [place] [address] Self Referral ID Status Reason Start Date Expiration Date V isits Requested Visits Authorized [id number] Denied Auto-Generat ed Referral Patient Cleared - Admin/Chairm an/Director advise to proceed or did not respond 06/25/2023 07/24/2024 1 0 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 Reason Comments Patient Question Reason Comments Results Reason Comments Sigmoid Colon Cancer New patient consult Specialty Diagnoses / Procedures Referred By Contac t Referred To Contact Oncology Diagnoses Malignant neoplasm of sigmoid colon (HCC) Procedures CONSULT TO ONCOLOGY OFFICE/OUTPATIENT NEW HIGH MDM 60-[place] [address] [place] [address] Referral ID Status Reason Start Date Expiration Date V isits Requested Visits Authorized [id number] Closed PCP Requested Referral 06/25/2023 06/24/2024 1 1 Reason Comments Appointment Reason Comments Referral Information Port Placement Reason Comments Consult Reason Comments PRE BRONCH CONSULT Specialty Diagnoses / Procedures Referred By Contac t Referred To Contact CT IMAGING Diagnoses Lung nodule Procedures CT CHEST WO IVCON DIAGNOSTIC COMPUTED TOMOGRAPHY THORAX W/O CNTRST Dao Dixon MD [address] [place] [address] [address] [facility] [place] [address] Referral ID Status Reason Start Date Expiration Date V isits Requested Visits Authorized [id number] Closed Auto-Generate d Referral 08/01/2023 08/31/2023 1 1 Reason Comments Care Coordination Antiemetics Reason Comments Colon Cancer Specialty Diagnoses / Procedures Referred By Contac t Referred To Contact Diagnoses Malignant neoplasm of sigmoid colon (HCC) Procedures CONSULT TO MEDICAL GENETICS - CANCER MEDICAL GENETICS COUNSELING EACH 30 MINUTES Jose Wing MD [address] [place] [address] [place] [address] [place] [address] Referral ID Status Reason Start Date Expiration Date Visits Requested Visits Authorized [id number] Pending Review PCP Requested Referral Auto-Generate d Referral 3 07/02/2024 1 1 Reason Comments First Time Treatment Education Oxaliplat in, Leucovorin, & 5FU Reason Comments Care Coordination Pt Update Reason Comments Nutrition Assessment Specialty Diagnoses / Procedures Referred By Contac t Referred To Contact Diagnoses Malignant neoplasm of sigmoid colon (HCC) Procedures LEUCOVORIN CALCIUM INJECTION PALONOSETRON HCL OXALIPLATIN FLUOROURACIL INJECTION Jose Wing MD [address] [place] [address] [place] [address] Jaren Treat Rosy [facility] [place] [address] Referral ID Status Reason Start Date Expiration Date Visits Requested Visits Authorized [id number] Waiting for Online Response Patient Cleared - Admin/Chair man/Directo r advise to proceed or did not respond 3 01/08/2024 99 0 Reason Comments Care Coordination Insurance Denial Reason Comments Care Coordination Productive Cough Specialty Diagnoses / Procedures [facility] Contact Diagnoses Malignant neoplasm of sigmoid colon (HCC) Procedures LEUCOVORIN CALCIUM INJECTION PALONOSETRON HCL OXALIPLATIN FLUOROURACIL INJECTION INJECTION, Jose Licea MD [address] [place] [address] [place] [address] Jaren Treat Rosy [address] [place] [address] Referral ID Status Reason Start Date Expiration Date Visits Requested Visits Authorized [id number] Waiting for Response Patient Cleared - Admin/Chair man/Directo r advise to proceed or did not respond 3 01/08/2024 99 0 Reason Comments Colon Cancer 2 week follow up Reason Comments Colon Cancer OTV Referral ID Status Reason Start Date Expiration Date Visits Requested Visits Authorized [id number] Authorized Patient Cleared - Admin/Chairm an/Director advise to proceed or did not respond 3 01/08/2024 13 13 Reason Comments Opened In Error Reason Comments Care Coordination Surgery Update; Appo intments 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 Reason Comments Post Op Reason Comments peristomal dermatitis Reason Comments Medication Question Reason Comments Post Op Wound Care Reason Comments Post Op Ostomy reversal Reason Comments Patient Update Reason Comments Radiology CT Specialty Diagnoses / Procedures Referred By [facility] t Referred To Contact CT IMAGING Diagnoses Malignant neoplasm of descending colon (HCC) Procedures CT CHEST W IVCON DIAGNOSTIC COMPUTED TOMOGRAPHY THORAX W/CONTRAST Jose Wing MD [address] [place] [address] [place] [address] Ct Imaging [id number] Referral ID Status Reason Start Date Expiration Date V isits Requested Visits Authorized [id number] Closed Auto-Generate d Referral 11/07/2023 12/06/2023 1 1 Specialty Diagnoses / Procedures Referred By [facility] Referred To Contact MOLECULAR & FUNCTIONAL IMAGING Diagnoses Malignant neoplasm of sigmoid colon (HCC) Iron deficiency anemia due to chronic blood loss Procedures NM PET/CT SKULL-THIGH INITIAL PET IMAGING CT ATTENUATION SKULL BASE MID-THIGH Jose Wing MD [address] [place] [address] [place] [address] Molecular & Functional Imaging [address] [place] [address] Referral ID Status Reason Start Date Expiration Date V isits Requested Visits Authorized [id number] Closed Auto-Generate d Referral 07/13/2023 07/13/2023 1 1 Specialty Diagnoses / Procedures Referred By Contac t Referred To Contact CT IMAGING Diagnoses Rectal cancer (HCC) Procedures CT CHEST W IVCON DIAGNOSTIC COMPUTED TOMOGRAPHY THORAX W/[place] [address] [place] [address] [place] [address] Referral ID Status Reason Start Date Expiration Date V isits Requested Visits Authorized [id number] Closed Auto-Generate d Referral 06/22/2023 07/23/2023 1 1 Reason Comments Follow Up Reason Comments Colon Cancer Follow up/port draw Specialty Diagnoses / Procedures Referred By Contac t Referred To Contact CT IMAGING Diagnoses Malignant neoplasm of sigmoid colon (HCC) Procedures CT CHEST W IVCON DIAGNOSTIC COMPUTED TOMOGRAPHY THORAX W/CONTRAST Jose Wing MD [address] [place] [address] [place] [address] Phone: tel: fax: [facility] IM[facility]ING [id number] Referral ID Status Reason Start Date Expiration Date V isits Requested Visits Authorized [id number] Closed Auto-Generate d Referral 10/14/2024 08/13/2025 1 1 Reason Comments Malignant neoplasm of sigmoid colon [place] Specialty Diagnoses / Procedures Referred By Contac t Referred To Contact CT IMAGING Diagnoses Malignant neoplasm of sigmoid colon (HCC) Thrombocytopenia Fatty liver Procedures CT CHEST W IVCON DIAGNOSTIC COMPUTED TOMOGRAPHY THORAX W/CONTRAST Jose Wing MD [address] [place] [address] [place] [address] Phone: tel: fax: [place] [address] Referral ID Status Reason Start Date Expiration Date V isits Requested Visits Authorized [id number] Closed Auto-Generate d Referral 01/31/2025 12/03/2025 1 1 Reason Comments Colon Cancer Reason Onset Date Comments Care Coordination 02/10/2025 Scan Results Inactive Administered Medications - up to 3 [...] 11:19 AM EDT 6 mg Arm, Right Goals (unrecognized section and content) Goals may be documented in a n alternate section FOR RECORDS PERTAINING TO PATIENTS WHO ARE [...] BE BASED ON THE PRIMARY CLINICAL RECORDS. [employer] provides no warranty or guarantee of the accuracy or completeness of information in this document.
[2025-06-22 09:46] LABS: Alanine Aminotransferase 33 U/L (14-59); Albumin Globulin Ratio 1.0; Albumin Level 3.6 g/dL (3.4-5.0); Alkaline Phosphatase 63 U/L (46-116); Anion Gap 12.4; Aspartate Amino Transferase 22 U/L (15-37); Blood Urea Nitrogen 15.0 mg/dL (7.0-18.0); Calcium 9.1 mg/dL (8.5-10.1); Carbon Dioxide 29.2 mmol/L (21.0-32.0); Chloride 106 mmol/L (98-107); Cholesterol 117 mg/dL (<=200); Estimated GFR (African America >60 (>=60 mL/min/1.73m^2); Estimated GFR (Non-African Ame >60 (>=60 mL/min/1.73m^2); Globulin 3.6 g/dL; Glucose 104 mg/dL (74-106); HDL Cholesterol 45 mg/dL (40-60); Potassium 3.6 mmol/L (3.5-5.1); Sodium 144 mmol/L (136-145); Total Protein 7.2 g/dL (6.4-8.2); Triglycerides 99 mg/dL (<=150); VLDL CHOLESTEROL 19.8 mg/dL
== END 2025-06-22 09:06 | disposition home or self-care (01) ==
LOC: LAB 09:11
PROVIDERS: PCP Family Medicine; Visit Provider Nurse Practitioner Family
DX: G45.9 Transient cerebral ischemic attack, unspecified (principal); E78.2 Mixed hyperlipidemia
CPT/HCPCS: 36415; 80053; 80061